=== PATIENT | female | born 1955 | race Caucasian/White ===

== ENCOUNTER 2016-09-07 15:23 | Inpatient (IN) | payer MEDICARE, BC ==
--- NOTE | 2016-09-07 15:47 | ED ---
General Adult HPI - General Stated complaint: Altered Time Seen by Provider: 09/07/16 15:23 Source: RN notes reviewed - History of Present Illness Initial comments: This is a 61-year-old female who has a history of left-sided paralysis. Patient was sent from [facility] they told me the patient a urinary tract infection can just of heart failure and and had altered mental status on arrival but per the ER doc she was back to her baseline. The physician at that time of transfer did not think the patient was septic. Per the ER doc she had a CT of her head and chest and it did show some pulmonary edema. Patient denies any chest pain or palpitations patient denies abdominal pain. Patient states she does feel mildly short of breath. Patient denies any recent injury or trauma. - Related Data Home Medications Medication Instructions Recorded Confirmed Aspirin 81 mg PO DAILY 11/10/15 11/11/15 Atorvastatin Calcium [Lipitor] 20 mg PO HS 11/10/15 11/11/15 Baclofen [Lioresal] 10 mg PO BID 11/10/15 11/11/15 Budesonide [Pulmicort] 0.5 mg INHALATION RT-BID 11/10/15 11/11/15 Glimepiride [Amaryl] 2 mg PO AC-BRKFST 11/10/15 11/11/15 INSULIN LISPRO (HumaLOG) [humaLOG] 20 units SQ ACHS PRN 11/10/15 11/11/15 Imipramine [Tofranil] 25 mg PO BID 11/10/15 11/11/15 Insulin Detemir [Levemir] 30 unit SQ HS 11/10/15 11/11/15 Lactulose 10 gm PO DAILY 11/10/15 11/11/15 Magnesium Citrate 296 ml PO ONCE PRN 11/10/15 11/11/15 Multivitamin [Men's Multi-Vitamin] 1 tab PO DAILY 11/10/15 11/11/15 Neomycin/Polymyxin B Sulf/Hc 1 drop BOTH EYES BID 11/10/15 11/11/15 [Lhaxrmgf-Nyqx-Vu Ophth Susp] [place]-3 Fatty Acids/Fish Oil [Fish 1 cap PO DAILY 11/10/15 11/11/15 Oil 1,000 mg Softgel] PARoxetine HCL [Paxil] 20 mg PO DAILY 03/04/16 03/05/16 Triamterene-Hctz 37.5-25Mg 1 cap PO DAILY 11/10/15 11/11/15 [Dyazide 37.5-25 Capsule] metFORMIN HCL [Glucophage] 1,000 mg PO BID 11/10/15 11/11/15 Albuterol Nebulized [Ventolin 2.5 mg INHALATION RT-QID 11/11/15 11/11/15 Nebulized] Docusate [Colace] 100 mg PO QID 11/11/15 11/11/15 Lisinopril [Zestril] 10 mg PO DAILY 11/11/15 11/11/15 Oxybutynin Xl [Ditropan XL] 5 mg PO DAILY 11/11/15 11/11/15 Previous Rx's Medication Instructions Recorded Moxifloxacin HCl [Avelox] 400 mg PO DAILY #7 tablet 11/23/15 Allergies Allergy/AdvReac Type Severity Reaction Status Date / Time No Known Allergies Allergy Verified 11/11/15 11:31 Review of Systems ROS Statement: Those systems with pertinent positive or pertinent negative responses have been documented in the HPI. ROS Other: All systems not noted in ROS Statement are negative. Past Medical History Past Medical History: Coronary Artery Disease (CAD), Diabetes Mellitus, Hyperlipidemia, Hypertension Additional Past Medical History / Comment(s): Morbid obesity, olivopontine and cerebellar degeneration, diabetes mellitus, chronic constipation, chronic urinary incontinence and the patient has a chronic Humphrey catheter in place with previous history of frequent urinary tract infections, difficulty with mobility and the patient was around with the help of a motorized scooter, obstructive sleep apnea, bronchial asthma, chronic hydronephrosis of the kidneys, hyperlipidemia, coronary artery disease, hypertension History of Any Multi-Drug Resistant Organisms: None Reported Past Surgical History: No Surgical Hx Reported Past Anesthesia/Blood Transfusion Reactions: No Reported Reaction Past Psychological History: Anxiety, Depression Smoking Status: Never smoker Past Alcohol Use History: None Reported Past Drug Use History: None Reported General Exam - General Exam Comments Initial Comments: GENERAL: Patient is well-developed and well-nourished. Patient is nontoxic and well- hydrated and is in mild distress. ENT: Neck is soft and supple. No significant lymphadenopathy is noted. Oropharynx is clear. Moist mucous membranes. Neck has full range of motion without eliciting any pain. EYES: The sclera were anicteric and conjunctiva were pink and moist. Extraocular movements were intact and pupils were equal round and reactive to light. Eyelids were unremarkable. PULMONARY: Patient has diminished breath sounds CARDIOVASCULAR: There is a regular rate and rhythm without any murmurs gallops or rubs. ABDOMEN: Soft and nontender with normal bowel sounds. No palpable organomegaly was noted. There is no palpable pulsatile mass. SKIN: Skin is clear with no lesions or rashes and otherwise unremarkable. NEUROLOGIC: Patient is alert and oriented x3. Cranial nerves II through XII are grossly intact. Patient has left-sided arm and leg weakness MUSCULOSKELETAL: Normal extremities with adequate strength and full range of motion. No lower extremity swelling or edema. No calf tenderness. LYMPHATICS: No significant lymphadenopathy is noted PSYCHIATRIC: Normal psychiatric evaluation. Course Vital Signs 09/07/16 09/07/16 09/07/16 15:38 16:14 16:35 Temperature 98.8 F Pulse Rate 132 H 132 H 134 H Respiratory 16 Rate Blood Pressure 92/67 104/58 104/49 O2 Sat by Pulse 100 98 100 Oximetry 09/07/16 09/07/16 17:13 17:45 Temperature Pulse Rate 134 H 134 H Respiratory Rate Blood Pressure 98/68 111/58 O2 Sat by Pulse 100 98 Oximetry Medical Decision Making - Medical Decision Making EKG shows sinus tachycardia at 135 bpm. A 54 QRS is 84 QT interval 288 QTC is 432. Patient has no ST segment elevation or depression or T-wave inversion noted. Patient came from [facility] are reviewed the CAT scans and x-rays it did appear the patient had some pulmonary edema. I repeated the lactic acid went from 2.9 down to 2.4. Patient's oxygenation on 4 L nasal cannula was 97% she was alert and oriented 3 blood pressure was 111 systolic however heart rate remained high but on previous visits to the hospital and noted that the patient's pulse was elevated at that time as well. I will be treating the patient for congestive heart failure as well as urinary tract infection. I spoke with Dr. Lee admitted the patient I wrote admitting orders - Lab Data Result diagrams: 09/07/16 16:15 09/07/16 16:15 Lab Results 09/07/16 09/07/16 09/07/16 Range/Units 16:15 16:15 16:15 WBC 12.2 H (3.8-10.6) k/uL RBC 4.71 (3.80-5.40) m/uL Hgb 13.9 (11.4-16.0) gm/dL Hct 43.7 (34.0-46.0) % MCV 92.8 (80.0-100.0) fL MCH 29.5 (25.0-35.0) pg MCHC 31.8 (31.0-37.0) g/dL RDW 13.8 (11.5-15.5) % Plt Count 274 (150-450) k/uL Neutrophils % 91 % Lymphocytes % 4 % Monocytes % 3 % Eosinophils % 0 % Basophils % 0 % Neutrophils # 11.1 H (1.3-7.7) k/uL Lymphocytes # 0.5 L (1.0-4.8) k/uL Monocytes # 0.4 (0-1.0) k/uL Eosinophils # 0.1 (0-0.7) k/uL Basophils # 0.0 (0-0.2) k/uL Hypochromasia Slight Sodium 143 (137-145) mmol/L Potassium 5.8 H (3.5-5.1) mmol/L Chloride 102 (98-107) mmol/L Carbon Dioxide 20 L (22-30) mmol/L Anion Gap 21 mmol/L BUN 42 H (7-17) mg/dL Creatinine 1.35 H (0.52-1.04) mg/dL Est GFR (MDRD) Af Amer 49 (>60 ml/min/1.73 sqM) Est GFR (MDRD) Non-Af 40 (>60 ml/min/1.73 sqM) Glucose 317 H (74-99) mg/dL Plasma Lactic Acid George 2.4 H* (0.7-2.0) mmol/L Calcium 9.5 (8.4-10.2) mg/dL Total Bilirubin 0.6 (0.2-1.3) mg/dL AST 34 (14-36) U/L ALT 48 (9-52) U/L Alkaline Phosphatase 120 (38-126) U/L NT-Pro-B Natriuret Pep pg/mL Total Protein 7.8 (6.3-8.2) g/dL Albumin 4.1 (3.5-5.0) g/dL Urine Color Urine Appearance (Clear) Urine pH (5.0-8.0) Ur Specific [place] (1.001-1.035) Urine Protein (Negative) Urine Glucose (UA) (Negative) Urine Ketones (Negative) Urine Blood (Negative) Urine Nitrate (Negative) Urine Bilirubin (Negative) Urine Urobilinogen (<2.0) mg/dL Ur Leukocyte Esterase (Negative) Urine RBC (0-5) /hpf Urine WBC (0-5) /hpf Ur Squamous Epith Cells (0-4) /hpf Hyaline Casts (0-2) /lpf Urine Mucus (None) /hpf 09/07/16 09/07/16 Range/Units 16:15 16:33 WBC (3.8-10.6) k/uL RBC (3.80-5.40) m/uL Hgb (11.4-16.0) gm/dL Hct (34.0-46.0) % MCV (80.0-100.0) fL MCH (25.0-35.0) pg MCHC (31.0-37.0) g/dL RDW (11.5-15.5) % Plt Count (150-450) k/uL Neutrophils % % Lymphocytes % % Monocytes % % Eosinophils % % Basophils % % Neutrophils # (1.3-7.7) k/uL Lymphocytes # (1.0-4.8) k/uL Monocytes # (0-1.0) k/uL Eosinophils # (0-0.7) k/uL Basophils # (0-0.2) k/uL Hypochromasia Sodium (137-145) mmol/L Potassium (3.5-5.1) mmol/L Chloride (98-107) mmol/L Carbon Dioxide (22-30) mmol/L Anion Gap mmol/L BUN (7-17) mg/dL Creatinine (0.52-1.04) mg/dL Est GFR (MDRD) Af Amer (>60 ml/min/1.73 sqM) Est GFR (MDRD) Non-Af (>60 ml/min/1.73 sqM) Glucose (74-99) mg/dL Plasma Lactic Acid George (0.7-2.0) mmol/L Calcium (8.4-10.2) mg/dL Total Bilirubin (0.2-1.3) mg/dL AST (14-36) U/L ALT (9-52) U/L Alkaline Phosphatase (38-126) U/L NT-Pro-B Natriuret Pep 1790 pg/mL Total Protein (6.3-8.2) g/dL Albumin (3.5-5.0) g/dL Urine Color Yellow Urine Appearance Cloudy H (Clear) Urine pH 5.0 (5.0-8.0) Ur Specific [place] 1.011 (1.001-1.035) Urine Protein Trace H (Negative) Urine Glucose (UA) Negative (Negative) Urine Ketones Negative (Negative) Urine Blood Small H (Negative) Urine Nitrate Negative (Negative) Urine Bilirubin Negative (Negative) Urine Urobilinogen <2.0 (<2.0) mg/dL Ur Leukocyte Esterase Large H (Negative) Urine RBC 9 H (0-5) /hpf Urine WBC 28 H (0-5) /hpf Ur Squamous Epith Cells <1 (0-4) /hpf Hyaline Casts 79 H (0-2) /lpf Urine Mucus Rare H (None) /hpf Critical Care Time Critical Care Time: Yes Total Critical Care Time: 35 Disposition Clinical Impression: Pulmonary edema, Urinary tract infection, Tachycardia Disposition: ADMITTED IP TO THIS HOSP Referrals: Zita Barboza MD [Primary Care Provider] - 1-2 days Time of Disposition: 17:58
[2016-09-07 16:30] LABS: Basophils % (A) 0 %; CH 28.6; CHCM 30.9; Eosinophils # (A) 0.1 k/uL (0-0.7); Eosinophils % (A) 0 %; HCT 43.7 % (34.0-46.0); HDW 2.22; HGB 13.9 gm/dL (11.4-16.0); Hypochromasia Slight; Luc # (Auto) 0.07; Luc % (Auto) 1; Lymphocytes # (A) 0.5 k/uL (1.0-4.8); Lymphocytes % (A) 4 %; MCH 29.5 pg (25.0-35.0); MCHC 31.8 g/dL (31.0-37.0); MCV 92.8 fL (80.0-100.0); Monocytes # (A) 0.4 k/uL (0-1.0); Monocytes % (A) 3 %; Neutrophils # (A) 11.1 k/uL (1.3-7.7); Neutrophils % (A) 91 %; RBC 4.71 m/uL (3.80-5.40); RDW 13.8 % (11.5-15.5); WBC 12.2 k/uL (3.8-10.6); WBC (Perox) 12.42
[2016-09-07 16:37] LABS: Calcium 9.5 mg/dL (8.4-10.2); Potassium 5.8 mmol/L (3.5-5.1); Total Bilirubin 0.6 mg/dL (0.2-1.3); Total Protein 7.8 g/dL (6.3-8.2)
[2016-09-07 16:53] LABS: Appearance,Urine Cloudy (Clear); Bilirubin,Urine Negative (Negative); Glucose,Urine (UA) Negative (Negative); Ketones,Urine Negative (Negative); Leukocyte Esterase,Urine Large (Negative); Mucus,Urine Rare /hpf; Nitrite,Urine Negative (Negative); Particle Count 6232; Protein,Urine Trace (Negative); RBC,Urine 9 /hpf (0-5); Specific Gravity,Urine 1.011 (1.001-1.035); Squamous Epithelial Cell,Urine <1 /hpf (0-4); UA Billing (MACRO vs. MICRO) MICRO; Urobilinogen,Urine <2.0 mg/dL (<2.0); WBC,Urine 28 /hpf (0-5)
[2016-09-07] MEDS ORDERED: FUROSEMIDE 10 MG/ML 2 ML VIAL IV ONE (18:02)
[2016-09-07 19:16] LABS: Glucose,Whole Blood 319 mg/dL (75-99)
[2016-09-07 20:53] LABS: Glucose,Whole Blood 360 mg/dL (75-99)
[2016-09-07] MEDS ORDERED: INSULIN DETEMIR 100 UNIT/ML 10 ML VIAL SQ STA (22:21)
[2016-09-07] MEDS ORDERED: IPRATROPIUM-ALBUTEROL 3 ML NEB INHALATION PRN (22:22)
[2016-09-07 22:47] LABS: Basophils % (A) 0 %; CH 28.5; CHCM 30.7; Eosinophils % (A) 0 %; HCT 44.4 % (34.0-46.0); HDW 2.22; HGB 14.1 gm/dL (11.4-16.0); Hypochromasia Slight; Luc # (Auto) 0.23; Luc % (Auto) 2; Lymphocytes # (A) 1.1 k/uL (1.0-4.8); Lymphocytes % (A) 9 %; MCH 29.7 pg (25.0-35.0); MCHC 31.8 g/dL (31.0-37.0); MCV 93.4 fL (80.0-100.0); Mean Platelet Volume 8.1; Monocytes # (A) 0.9 k/uL (0-1.0); Monocytes % (A) 7 %; Neutrophils % (A) 81 %; RBC 4.75 m/uL (3.80-5.40); RDW 13.8 % (11.5-15.5); WBC 12.3 k/uL (3.8-10.6); WBC (Perox) 12.67
[2016-09-07 22:54] LABS: Calcium 9.3 mg/dL (8.4-10.2); Magnesium 1.7 mg/dL (1.6-2.3); Phosphorous 3.4 mg/dL (2.5-4.5)
[2016-09-07 23:10] LABS: Glucose,Whole Blood 352 mg/dL (75-99)
--- NOTE | 2016-09-07 23:25 | CT ---
EXAMINATION TYPE: CT brain wo con DATE OF EXAM: 09/07/2016 10:56 PM COMPARISON: 11/10/2015 HISTORY: R/O CVA CT DLP: 1081.60 mGycm Automated exposure control for dose reduction was used. FINDINGS: There is cerebral cortical atrophy. There is no mass effect nor midline shift. There is no sign of in tracranial hemorrhage. The calvarium is intact. The brainstem appears small. There is hypodensity inv olving the peña consistent with encephalomalacia and old infarct. IMPRESSION: Cerebral atrophy. Encephalomalacia involving the brainstem. No change compared to old exam.
[2016-09-07] MEDS: SODIUM CHLORIDE 0.9% 1,000 ML IV SCH (23:36)
[2016-09-07] MEDS: SODIUM CHLORIDE 0.9% 250 ML IV SCH (23:38)
[2016-09-08] MEDS ORDERED: FUROSEMIDE 10 MG/ML 2 ML VIAL IV SCH
[2016-09-08] MEDS: SODIUM CHLORIDE 0.9% 250 ML IV SCH ×3 (00:08→00:38)
--- NOTE | 2016-09-08 00:54 | XR ---
EXAMINATION TYPE: XR chest 1V portable DATE OF EXAM: 09/08/2016 12:49 AM COMPARISON: Yesterday HISTORY: Short of breath TECHNIQUE: Single frontal view of the chest is obtained. FINDINGS: There is a poor inspiration. There is coarsening of interstitial pulmonary markings. There is no gross heart failure. Costophrenic angles are clear. Exam is limited by obesity. There are ches t leads. There are no hilar masses. IMPRESSION: Coarse lung markings are the same or increased compared to yesterday and probably relate to some fibrosis. No gross heart failure.
[2016-09-08] MEDS ORDERED: NALOXONE 0.4 MG/ML 1 ML VIAL IV PRN (00:56)
[2016-09-08] MEDS ORDERED: VANCOMYCIN 1,000 MG in SODIUM CHLORIDE 0.9% 250 ML IVPB STA (01:03)
[2016-09-08 01:04] LABS: INR 1.1 (<1.1); Partial Thromboplastin Time 27.4 sec (22.0-30.0); Prothrombin Time 10.9 sec (9.0-12.0)
[2016-09-08 01:09] LABS: ABG Base Excess -2.8 mmol/L; ABG HCO3 21 mmol/L (21-25); ABG PCO2 29 mmHg (35-45); ABG PH 7.46 (7.35-7.45); ABG PO2 62 mmHg (83-108); ABG TCO2 21 mmol/L (19-24)
[2016-09-08] MEDS ORDERED: IPRATROPIUM-ALBUTEROL 3 ML NEB INHALATION PRN (01:15)
[2016-09-08] MEDS ORDERED: ACETAMINOPHEN IV (For NPO) 1,000 MG in EMPTY BAG 1 BAG IVPB SCH (01:15)
[2016-09-08] MEDS ORDERED: SODIUM CHLORIDE 0.9% 1,000 ML IV ONE ×2 (01:19→12:43)
[2016-09-08 01:25] LABS: Creatine Kinase MB 4.9 ng/mL (0.0-2.4)
[2016-09-08] MEDS: ACETAMINOPHEN IV (For NPO) 1,000 MG in EMPTY BAG 1 BAG IVPB PRN ×2 (01:35→09:12)
[2016-09-08] MEDS: SODIUM CHLORIDE 0.9% 1,000 ML IV SCH ×2 (01:37→18:35)
[2016-09-08 04:02] LABS: Basophils % (A) 0 %; CH 29.2; CHCM 30.3; Eosinophils % (A) 0 %; HCT 45.1 % (34.0-46.0); HDW 2.28; HGB 13.3 gm/dL (11.4-16.0); Hypochromasia Moderate; Luc # (Auto) 0.15; Luc % (Auto) 2; Lymphocytes # (A) 0.9 k/uL (1.0-4.8); Lymphocytes % (A) 9 %; MCH 28.7 pg (25.0-35.0); MCHC 29.6 g/dL (31.0-37.0); MCV 96.9 fL (80.0-100.0); Mean Platelet Volume 9.1; Monocytes % (A) 9 %; Neutrophils % (A) 79 %; RBC 4.66 m/uL (3.80-5.40); RDW 14.1 % (11.5-15.5); WBC (Perox) 10.11
[2016-09-08 04:16] LABS: Calcium 8.8 mg/dL (8.4-10.2); Magnesium 1.7 mg/dL (1.6-2.3); Phosphorous 3.8 mg/dL (2.5-4.5); Potassium 5.7 mmol/L (3.5-5.1); Total Bilirubin 0.6 mg/dL (0.2-1.3); Total Protein 6.7 g/dL (6.3-8.2)
[2016-09-08] MEDS ORDERED: INSULIN LISPRO (humaLOG) 300 UNIT/3 ML VIAL SQ SCH (06:00)
[2016-09-08] MEDS ORDERED: INSULIN LISPRO (humaLOG) 300 UNIT/3 ML VIAL SQ ONE (06:00)
[2016-09-08 06:02] LABS: Glucose,Whole Blood 448 mg/dL (75-99)
[2016-09-08] MEDS ORDERED: INSULIN REGULAR BOLUS (FROM DRIP BAG) IV PRN (06:19)
[2016-09-08] MEDS: INSULIN REGULAR 100 UNIT in SODIUM CHLORIDE 0.9% 100 ML IV SCH ×2 (07:13→21:33)
[2016-09-08] MEDS ORDERED: GLIMEPIRIDE 2 MG TAB PO SCH (07:30)
[2016-09-08 08:15] LABS: Glucose,Whole Blood 455 mg/dL (75-99)
[2016-09-08] MEDS ORDERED: metFORMIN 500 MG TAB PO SCH (09:00)
[2016-09-08] MEDS: IPRATROPIUM-ALBUTEROL 3 ML NEB INHALATION SCH ×5 (09:31→19:56)
[2016-09-08 09:34] LABS: Glucose,Whole Blood 423 mg/dL (75-99)
[2016-09-08] MEDS: NOREPINEPHRINE 4 MG in SODIUM CHLORIDE 0.9% 250 ML IV SCH ×2 (10:00→22:04)
[2016-09-08 10:26] LABS: Glucose,Whole Blood 372 mg/dL (75-99)
[2016-09-08] MEDS: ENOXAPARIN 30 MG/0.3 ML SYRINGE SQ SCH (10:43)
[2016-09-08] MEDS: PANTOPRAZOLE 40 MG/10 ML VIAL IV SCH (10:44)
[2016-09-08 11:29] LABS: Glucose,Whole Blood 294 mg/dL (75-99)
[2016-09-08 12:01] LABS: Hemoglobin A1C 7.7 % (4.2-6.1)
[2016-09-08 12:09] LABS: Glucose,Whole Blood 253 mg/dL (75-99)
[2016-09-08] MEDS ORDERED: IV VANCOMYCIN PER PHARMACY 1 EACH MISC MISCELLANE PRN (13:14)
[2016-09-08 13:15] LABS: Glucose,Whole Blood 229 mg/dL (75-99)
--- NOTE | 2016-09-08 13:34 | P.CNPUL ---
History of Present Illness Consult date: 09/08/16 Requesting physician: Harley Lee Chief complaint: Altered mental status History of present illness: This is a 61-year-old white female with history of left-sided paralysis, diabetes, hypertension, morbid obesity, olivopontine and cerebellar degeneration , chronic constipation, chronic Humphrey catheter placement, medical debility and profound weakness, patient usually uses a motorized scooter, history of obstructive sleep apnea syndrome, and chronic hydronephrosis of the kidneys. History of coronary artery disease, patient was initially seen at [place] emergency room with altered mental status, and abnormal urinalysis suggestive of urinary tract infection. Patient also had some other labs pointing to possible sepsis. Hence the patient was brought in to [facility], and she was admitted to the intensive care unit. The patient herself is a very poor historian. But apparently upon admission the patient was noted to be hypotensive, she required fluid boluses, and now she is on a small dose of norepinephrine. Patient was also noted to have a bit of leukocytosis, WBC count was 12.3. ABG on 36% FiO2 showed a pO2 of 62 pCO2 of 29 and pH of 7.46. Her electrolytes showed anion gap metabolic acidosis of 18, BUN was 48, creatinine was 1.40, and her blood sugar on admission was 415. Plasma lactic acid was 2.8, CPK was also elevated at 1380 proBNP level was a bit elevated almost 2800. Initially there was a bit of reluctance by the ER physician to give the patient fluid boluses for hypotension, because of the concern of pulmonary edema. However after I reviewed the chest x-ray, I felt there was no evidence of pulmonary edema, and I recommended fluid boluses she received so far 2 L of fluid boluses, and I plan to give her more, in the meantime the patient does not improve I recommended starting norepinephrine and titrate to a mean arterial pressure of 65 at least. I have also recommended broad-spectrum antibiotics for her presumptive sepsis and again the most likely source is the urine. Patient does have a chronic indwelling Humphrey catheter. Review of Systems ROS unobtainable: due to mental status Past Medical History Past Medical History: Coronary Artery Disease (CAD), Diabetes Mellitus, Hyperlipidemia, Hypertension, Sleep Apnea/CPAP/BIPAP Additional Past Medical History / Comment(s): Morbid obesity, olivopontine and cerebellar degeneration, diabetes mellitus, chronic constipation, chronic urinary incontinence and the patient has a chronic Humphrey catheter in place with previous history of frequent urinary tract infections, difficulty with mobility and the patient was around with the help of a motorized scooter, obstructive sleep apnea, bronchial asthma, chronic hydronephrosis of the kidneys, hyperlipidemia, coronary artery disease, hypertension History of Any Multi-Drug Resistant Organisms: C-DIFF, MRSA Date of last positivie culture/infection: 11/2015 MDRO Source:: c-diff, mrsa 2011 in blood Past Surgical History: No Surgical Hx Reported, Bowel Resection, Tubal Ligation Additional Past Surgical History / Comment(s): carpal tunnel Past Anesthesia/Blood Transfusion Reactions: No Reported Reaction Past Psychological History: Depression Smoking Status: Never smoker Past Alcohol Use History: None Reported Past Drug Use History: None Reported - Past Family History Father Family Medical History: Cancer Additional Family Medical History / Comment(s): from pancreatic cancer Mother Family Medical History: Congestive Heart Failure (CHF), Diabetes Mellitus, Dialysis Additional Family Medical History / Comment(s): from CHF Medications and Allergies Home Medications Medication Instructions Recorded Confirmed Type Aspirin 81 mg PO DAILY 11/10/15 09/07/16 History Atorvastatin Calcium [Lipitor] 20 mg PO HS 11/10/15 09/07/16 History Baclofen [Lioresal] 10 mg PO BID 11/10/15 09/07/16 History Budesonide [Pulmicort] 0.5 mg INHALATION RT-BID 11/10/15 09/07/16 History Glimepiride [Amaryl] 2 mg PO AC-BRKFST 11/10/15 09/07/16 History INSULIN LISPRO (HumaLOG) [humaLOG] 20 units SQ AC-TID 11/10/15 09/07/16 History Imipramine [Tofranil] 25 mg PO BID 11/10/15 09/07/16 History Insulin Detemir [Levemir] 35 unit SQ HS 11/10/15 09/07/16 History Lactulose 20 gm PO DAILY 11/10/15 09/07/16 History Neomycin/Polymyxin B Sulf/Hc 1 drop BOTH EYES BID 11/10/15 09/07/16 History [Wvuadgqp-Vdqr-Aw Ophth Susp] [place]-3 Fatty Acids/Fish Oil [Fish 1 cap PO DAILY 11/10/15 09/07/16 History Oil 1,000 mg Softgel] PARoxetine HCL [Paxil] 20 mg PO DAILY 11/10/15 09/07/16 History metFORMIN HCL [Glucophage] 1,000 mg PO BID 11/10/15 09/07/16 History Albuterol Nebulized [Ventolin 2.5 mg INHALATION RT-QID 11/11/15 09/07/16 History Nebulized] Docusate [Colace] 100 mg PO QID 11/11/15 09/07/16 History Lisinopril [Zestril] 10 mg PO DAILY 11/11/15 09/07/16 History Oxybutynin Xl [Ditropan XL] 5 mg PO DAILY 11/11/15 09/07/16 History Calcium Carbonate/Vitamin D3 1 tab PO DAILY 09/07/16 09/07/16 History [Calcium 600-Vit D3 200 Tablet] INSULIN LISPRO (humaLOG) [HumaLOG] See Protocol SQ AC-TID 09/07/16 09/07/16 History L.acidoph,Paracasei, B.lactis 1 cap PO DAILY 09/07/16 09/07/16 History [Probiotic] Multivitamins, Thera [Multivitamin] 1 tab PO DAILY 09/07/16 09/07/16 History Triamterene-Hctz 37.5-25Mg 1 tab PO DAILY 09/07/16 09/07/16 History [Maxzide 37.5-25] Allergies Allergy/AdvReac Type Severity Reaction Status Date / Time No Known Allergies Allergy Verified 09/07/16 18:21 Physical Exam Vitals: Vital Signs Temp Pulse Pulse Pulse Resp BP BP 09/08/16 12:00 98.9 F 112 H 19 92/56 09/08/16 11:30 114 H 18 94/53 09/08/16 11:00 113 H 22 75/40 09/08/16 10:00 114 H 24 95/59 09/08/16 09:30 99.7 F H 118 H 20 76/52 09/08/16 09:00 115 H 21 84/43 09/08/16 08:30 120 H 21 85/54 09/08/16 08:00 101.8 F H 113 H 18 71/49 09/08/16 07:00 102.4 F H 142 H 23 90/52 09/08/16 06:00 102.8 F H 124 H 24 93/54 09/08/16 05:00 98.1 F 124 H 20 122/68 09/08/16 04:00 99.8 F H 126 H 26 H 113/67 09/08/16 03:00 100.3 F H 126 H 25 H 108/66 09/08/16 02:00 102.6 F H 128 H 21 126/60 09/08/16 01:00 101.5 F H 136 H 23 108/74 09/08/16 00:00 102.6 F H 134 H 26 H 109/65 09/07/16 23:15 103.2 F H 132 H 23 103/82 09/07/16 21:30 136 H 40 H 81/65 09/07/16 18:32 97.4 F L 136 H 20 91/64 Pulse Ox 09/08/16 12:00 99 09/08/16 11:30 97 09/08/16 11:00 09/08/16 10:00 99 09/08/16 09:30 99 09/08/16 09:00 100 09/08/16 08:30 99 09/08/16 08:00 09/08/16 07:00 100 09/08/16 06:00 98 09/08/16 05:00 99 09/08/16 04:00 96 09/08/16 03:00 96 09/08/16 02:00 99 09/08/16 01:00 96 09/08/16 00:00 93 L 09/07/16 23:15 94 L 09/07/16 21:30 09/07/16 18:32 97 Intake and Output 09/07/16 09/08/16 09/08/16 22:59 06:59 14:59 Intake Total 1650 1565.430 Output Total 975 380 Balance 675 1185.430 Intake: IV 1000 .9ns bolus 1000 Intake, IV Titration 1650 565.430 Amount ACETAMINOPHEN IV (For NPO 100 ) 1,000 mg In Empty Bag 1 bag @ 400 mls/hr IVPB Q6HR PRN Rx#:[id number] ACETAMINOPHEN IV (For NPO 300 ) 1,000 mg In Empty Bag 1 bag @ 400 mls/hr IVPB Q6HR BROOKE Rx#:[id number] Insulin Regular 100 unit 52.666 In Sodium Chloride 0.9% 100 ml @ Per Protocol IV .Q0M [facility] Rx#:[id number] Norepinephrine 4 mg In 12.764 Sodium Chloride 0.9% 250 ml @ Titrate IV .Q0M [facility] Rx#:[id number] Sodium Chloride 0.9% 1, 300 200 000 ml @ 100 mls/hr IV . Q10H [facility] Rx#:[id number] Sodium Chloride 0.9% 1, 1000 000 ml @ 500 mls/hr IV . Q2H ONE Rx#:[id number] Vancomycin 1,000 mg In 250 Sodium Chloride 0.9% 250 ml @ 125 mls/hr IVPB ONCE STA Rx#:[id number] Output: Urine 975 380 Other: Voiding Method Indwelling Catheter Indwelling Catheter Indwelling Catheter Weight 136.078 kg 136.078 kg Patient Weight 09/09/16 06:59 Weight 136.078 kg Physical Exam: Revealed a 61-year-old female on nasal CPAP of her own. FiO2 presently is 50%. HEENT:[Neck is supple.] [No neck masses.] [No thyromegaly.] [No JVD.] Very dry mucous membranes were noted. Chest: [Diminished breath sounds at the bases no crackles or rhonchi or wheezes. ] Cardiac Exam: [Normal S1 and S2, no S3 gallop, no murmur.] Abdomen: [Soft, nontender, no megaly, no rebound, no guarding, intact colostomy bag noted.] Extremities: [No clubbing, no edema, no cyanosis.] Neurological Exam: Patient seems to be generally weak, and she has a chronic left-sided weakness. Slightly confused, not a great historian and supposedly this is her baseline. Results - Laboratory Findings CBC and BMP: 09/08/16 03:36 09/08/16 03:36 ABG ABG pH 7.46 (7.35-7.45) H 09/07/16 23:46 ABG pCO2 29 mmHg (35-45) L 09/07/16 23:46 ABG pO2 62 mmHg (83-108) L 09/07/16 23:46 ABG O2 Saturation 93.0 % (94-97) L 09/07/16 23:46 PT/INR, D-dimer PT 10.9 sec (9.0-12.0) 09/08/16 00:42 INR 1.1 (<1.1) 09/08/16 00:42 Abnormal lab findings: Abnormal Labs 09/07/16 09/07/16 09/07/16 18:57 20:33 22:28 WBC MCHC Plt Count Neutrophils # Lymphocytes # ABG pH ABG pCO2 ABG pO2 ABG O2 Saturation Potassium Carbon Dioxide BUN Creatinine Glucose POC Glucose (mg/dL) 319 H 360 H Hemoglobin A1c Plasma Lactic Acid George 2.8 H* AST Total Creatine Kinase CK-MB (CK-2) 09/07/16 09/07/16 09/07/16 22:28 22:28 23:09 WBC 12.3 H MCHC Plt Count Neutrophils # 10.0 H Lymphocytes # ABG pH ABG pCO2 ABG pO2 ABG O2 Saturation Potassium Carbon Dioxide 20 L BUN 48 H Creatinine 1.40 H Glucose 415 H POC Glucose (mg/dL) 352 H Hemoglobin A1c Plasma Lactic Acid George AST Total Creatine Kinase CK-MB (CK-2) 09/07/16 09/08/16 09/08/16 23:46 00:42 00:42 WBC MCHC Plt Count Neutrophils # Lymphocytes # ABG pH 7.46 H ABG pCO2 29 L ABG pO2 62 L ABG O2 Saturation 93.0 L Potassium 5.7 H Carbon Dioxide BUN Creatinine Glucose POC Glucose (mg/dL) Hemoglobin A1c Plasma Lactic Acid George AST Total Creatine Kinase 1380 H CK-MB (CK-2) 4.9 H* 09/08/16 09/08/16 09/08/16 03:36 03:36 03:36 WBC MCHC 29.6 L Plt Count 142 L Neutrophils # 8.0 H Lymphocytes # 0.9 L ABG pH ABG pCO2 ABG pO2 ABG O2 Saturation Potassium 5.7 H Carbon Dioxide 19 L BUN 49 H Creatinine 1.40 H Glucose 495 H* POC Glucose (mg/dL) Hemoglobin A1c Plasma Lactic Acid George 2.7 H* AST 66 H Total Creatine Kinase CK-MB (CK-2) 09/08/16 09/08/16 09/08/16 03:36 06:00 08:05 WBC MCHC Plt Count Neutrophils # Lymphocytes # ABG pH ABG pCO2 ABG pO2 ABG O2 Saturation Potassium Carbon Dioxide BUN Creatinine Glucose POC Glucose (mg/dL) 448 H 455 H Hemoglobin A1c 7.7 H Plasma Lactic Acid George AST Total Creatine Kinase CK-MB (CK-2) 09/08/16 09/08/16 09/08/16 09:14 10:08 11:09 WBC MCHC Plt Count Neutrophils # Lymphocytes # ABG pH ABG pCO2 ABG pO2 ABG O2 Saturation Potassium Carbon Dioxide BUN Creatinine Glucose POC Glucose (mg/dL) 423 H 372 H 294 H Hemoglobin A1c Plasma Lactic Acid George AST Total Creatine Kinase CK-MB (CK-2) 09/08/16 09/08/16 12:08 12:55 WBC MCHC Plt Count Neutrophils # Lymphocytes # ABG pH ABG pCO2 ABG pO2 ABG O2 Saturation Potassium Carbon Dioxide BUN Creatinine Glucose POC Glucose (mg/dL) 253 H 229 H Hemoglobin A1c Plasma Lactic Acid George AST Total Creatine Kinase CK-MB (CK-2) - Diagnostic Findings Chest x-ray: image reviewed (Coarse interstitial markings, but no evidence of infiltrate, and no evidence of congestive heart failure.) Additional studies: CT of the brain upon presentation showed cerebral atrophy encephalomalacia involving the brainstem which is chronic. Assessment and Plan Plan: Impression: 1 suspect acute sepsis secondary to acute urinary tract infection secondary to chronic indwelling Humphrey catheter. Multiple comorbidities including history of oligo pontine and cerebellar degeneration, morbid obesity, type 2 diabetes, chronic weakness, history of bronchial asthma, history of coronary artery disease, and history of essential hypertension. Chronic renal failure and hydronephrosis. Recommendation: Patient will be kept in the ICU today, she will be given more fluid boluses, we'll follow the sepsis protocol, in the meantime she is on ceftriaxone, and vancomycin. Infectious disease is yet to see the patient today. The antibiotics are given empirically. We'll continue bronchodilators, continue insulin drip, use norepinephrine if the patient does not improve with fluid boluses, and that would mean the patient is having a septic shock. Continue GI and DVT prophylaxis. Prognosis is definitely guarded, will continue to follow closely. Time with Patient: Greater than 30
[2016-09-08 13:48] LABS: Calcium 8.4 mg/dL (8.4-10.2); Potassium 5.8 mmol/L (3.5-5.1)
--- NOTE | 2016-09-08 13:59 | P.CONS ---
History of Present Illness - Reason for Consult Consult date: 09/08/16 Acute confusion - Chief Complaint Altered mental status - History of Present Illness This 61-year-old female with a history of left-sided paralysis. She was transferred from [facility] and was seen in the [facility] emergency room. She had some complaints of altered mental status. She was being treated for urinary tract infection. She was here for evaluation for sepsis and is currently in the ICU. During the right she had an episode of acute confusion, nonreactive pupils and unresponsiveness. She remains confused somewhat. She does have quite a complex medical history. She was admitted for pulmonary edema urinary tract infection tachycardia. 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 This was unchanged compared to her previous study of 11/10/2015. Review of Systems All systems: negative Past Medical History Past Medical History: Coronary Artery Disease (CAD), Diabetes Mellitus, Hyperlipidemia, Hypertension, Sleep Apnea/CPAP/BIPAP Additional Past Medical History / Comment(s): Morbid obesity, olivopontine and cerebellar degeneration, diabetes mellitus, chronic constipation, chronic urinary incontinence and the patient has a chronic Humphrey catheter in place with previous history of frequent urinary tract infections, difficulty with mobility and the patient was around with the help of a motorized scooter, obstructive sleep apnea, bronchial asthma, chronic hydronephrosis of the kidneys, hyperlipidemia, coronary artery disease, hypertension History of Any Multi-Drug Resistant Organisms: C-DIFF, 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 MDRO Source:: c-diff, mrsa 2011 in blood Past Surgical History: No Surgical Hx Reported, Bowel Resection, Tubal Ligation Additional Past Surgical History / Comment(s): carpal tunnel Past Anesthesia/Blood Transfusion Reactions: No Reported Reaction Past Psychological History: Depression Smoking Status: Never smoker Past Alcohol Use History: None Reported Past Drug Use History: None Reported - Past Family History Father Family Medical History: Cancer Additional Family Medical History / Comment(s): from pancreatic cancer Mother Family Medical History: Congestive Heart Failure (CHF), Diabetes Mellitus, Dialysis Additional Family Medical History / Comment(s): from CHF Medications and Allergies Home Medications Medication Instructions Recorded Confirmed Type Aspirin 81 mg PO DAILY 11/10/15 09/07/16 History Atorvastatin Calcium [Lipitor] 20 mg PO HS 11/10/15 09/07/16 History Baclofen [Lioresal] 10 mg PO BID 11/10/15 09/07/16 History Budesonide [Pulmicort] 0.5 mg INHALATION RT-BID 11/10/15 09/07/16 History Glimepiride [Amaryl] 2 mg PO AC-BRKFST 11/10/15 09/07/16 History INSULIN LISPRO (HumaLOG) [humaLOG] 20 units SQ AC-TID 11/10/15 09/07/16 History Imipramine [Tofranil] 25 mg PO BID 11/10/15 09/07/16 History Insulin Detemir [Levemir] 35 unit SQ HS 11/10/15 09/07/16 History Lactulose 20 gm PO DAILY 11/10/15 09/07/16 History Neomycin/Polymyxin B Sulf/Hc 1 drop BOTH EYES BID 11/10/15 09/07/16 History [Zrbiexjv-Vago-Oe Ophth Susp] [place]-3 Fatty Acids/Fish Oil [Fish 1 cap PO DAILY 11/10/15 09/07/16 History Oil 1,000 mg Softgel] PARoxetine HCL [Paxil] 20 mg PO DAILY 11/10/15 09/07/16 History metFORMIN HCL [Glucophage] 1,000 mg PO BID 11/10/15 09/07/16 History Albuterol Nebulized [Ventolin 2.5 mg INHALATION RT-QID 11/11/15 09/07/16 History Nebulized] Docusate [Colace] 100 mg PO QID 11/11/15 09/07/16 History Lisinopril [Zestril] 10 mg PO DAILY 11/11/15 09/07/16 History Oxybutynin Xl [Ditropan XL] 5 mg PO DAILY 11/11/15 09/07/16 History Calcium Carbonate/Vitamin D3 1 tab PO DAILY 09/07/16 09/07/16 History [Calcium 600-Vit D3 200 Tablet] INSULIN LISPRO (humaLOG) [HumaLOG] See Protocol SQ AC-TID 09/07/16 09/07/16 History L.acidoph,Paracasei, B.lactis 1 cap PO DAILY 09/07/16 09/07/16 History [Probiotic] Multivitamins, Thera [Multivitamin] 1 tab PO DAILY 09/07/16 09/07/16 History Triamterene-Hctz 37.5-25Mg 1 tab PO DAILY 09/07/16 09/07/16 History [Maxzide 37.5-25] Allergies Allergy/AdvReac Type Severity Reaction Status Date / Time No Known Allergies Allergy Verified 09/07/16 18:21 Physical Exam Vitals: Vital Signs Temp Pulse Pulse Pulse Resp BP BP 09/08/16 12:00 98.9 F 112 H 19 92/56 09/08/16 11:30 114 H 18 94/53 09/08/16 11:00 113 H 22 75/40 09/08/16 10:00 114 H 24 95/59 09/08/16 09:30 99.7 F H 118 H 20 76/52 09/08/16 09:00 115 H 21 84/43 09/08/16 08:30 120 H 21 85/54 09/08/16 08:00 101.8 F H 113 H 18 71/49 09/08/16 07:00 102.4 F H 142 H 23 90/52 09/08/16 06:00 102.8 F H 124 H 24 93/54 09/08/16 05:00 98.1 F 124 H 20 122/68 09/08/16 04:00 99.8 F H 126 H 26 H 113/67 09/08/16 03:00 100.3 F H 126 H 25 H 108/66 09/08/16 02:00 102.6 F H 128 H 21 126/60 09/08/16 01:00 101.5 F H 136 H 23 108/74 09/08/16 00:00 102.6 F H 134 H 26 H 109/65 09/07/16 23:15 103.2 F H 132 H 23 103/82 09/07/16 21:30 136 H 40 H 81/65 09/07/16 18:32 97.4 F L 136 H 20 91/64 Pulse Ox 09/08/16 12:00 99 09/08/16 11:30 97 09/08/16 11:00 09/08/16 10:00 99 09/08/16 09:30 99 09/08/16 09:00 100 09/08/16 08:30 99 09/08/16 08:00 09/08/16 07:00 100 09/08/16 06:00 98 01/01/17 05:00 99 09/08/16 04:00 96 09/08/16 03:00 96 09/08/16 02:00 99 09/08/16 01:00 96 09/08/16 00:00 93 L 09/07/16 23:15 94 L 09/07/16 21:30 09/07/16 18:32 97 Intake and Output 09/07/16 09/08/16 09/08/16 22:59 06:59 14:59 Intake Total 1650 1565.430 Output Total 975 380 Balance 675 1185.430 Intake: IV 1000 .9ns bolus 1000 Intake, IV Titration 1650 565.430 Amount ACETAMINOPHEN IV (For NPO 100 ) 1,000 mg In Empty Bag 1 bag @ 400 mls/hr IVPB Q6HR PRN Rx#:[id number] ACETAMINOPHEN IV (For NPO 300 ) 1,000 mg In Empty Bag 1 bag @ 400 mls/hr IVPB Q6HR BROOKE Rx#:[id number] Insulin Regular 100 unit 52.666 In Sodium Chloride 0.9% 100 ml @ Per Protocol IV .Q0M BROOKE Rx#:[id number] Norepinephrine 4 mg In 12.764 Sodium Chloride 0.9% 250 ml @ Titrate IV .Q0M BROOKE Rx#:[id number] Sodium Chloride 0.9% 1, 300 200 000 ml @ 100 mls/hr IV . Q10H BROOKE Rx#:[id number] Sodium Chloride 0.9% 1, 1000 000 ml @ 500 mls/hr IV . Q2H ONE Rx#:[id number] Vancomycin 1,000 mg In 250 Sodium Chloride 0.9% 250 ml @ 125 mls/hr IVPB ONCE STA Rx#:[id number] Output: Urine 975 380 Other: Voiding Method Indwelling Catheter Indwelling Catheter Indwelling Catheter Weight 136.078 kg 136.078 kg Patient Weight 09/09/16 06:59 Weight 136.078 kg - Constitutional General appearance: no acute distress, obese - EENT Eyes: no abnormal pupil, EOMI, PERRLA, no ptosis - Neck Neck: normal ROM, no rigidity - Respiratory On BiPAP machine Respiratory: negative: prolonged expiration, prolonged inspiration - Cardiovascular Rhythm: regular - Gastrointestinal General gastrointestinal: no distended, no tenderness - Neurologic The patient is awake and oriented to self only. Speech is mildly dysarthric, but she does not have her plate in. There is no facial asymmetry. She responds well to verbal commands and gives yes or no answers. Patient Service Representative strength is 4+ out of 5 on the right 4 minus out of 5 on the left otherwise she is uncooperative with strength testing. No tremors or seizure-like activities are seen. Results CBC & Chem 7: 09/08/16 03:36 09/08/16 03:36 Labs: Abnormal Lab Results - Last 24 Hours (Table) 09/07/16 09/07/16 09/07/16 Range/Units 18:57 20:33 22:28 WBC (3.8-10.6) k/uL MCHC (31.0-37.0) g/dL Plt Count (150-450) k/uL Neutrophils # (1.3-7.7) k/uL Lymphocytes # (1.0-4.8) k/uL ABG pH (7.35-7.45) ABG pCO2 (35-45) mmHg ABG pO2 (83-108) mmHg ABG O2 Saturation (94-97) % Potassium (3.5-5.1) mmol/L Carbon Dioxide (22-30) mmol/L BUN (7-17) mg/dL Creatinine (0.52-1.04) mg/dL Glucose (74-99) mg/dL POC Glucose (mg/dL) 319 H 360 H (75-99) mg/dL Hemoglobin A1c (4.2-6.1) % Plasma Lactic Acid George 2.8 H* (0.7-2.0) mmol/L AST (14-36) U/L Total Creatine Kinase (30-135) U/L CK-MB (CK-2) (0.0-2.4) ng/mL 09/07/16 09/07/16 09/07/16 Range/Units 22:28 22:28 23:09 WBC 12.3 H (3.8-10.6) k/uL MCHC (31.0-37.0) g/dL Plt Count (150-450) k/uL Neutrophils # 10.0 H (1.3-7.7) k/uL Lymphocytes # (1.0-4.8) k/uL ABG pH (7.35-7.45) ABG pCO2 (35-45) mmHg ABG pO2 (83-108) mmHg ABG O2 Saturation (94-97) % Potassium (3.5-5.1) mmol/L Carbon Dioxide 20 L (22-30) mmol/L BUN 48 H (7-17) mg/dL Creatinine 1.40 H (0.52-1.04) mg/dL Glucose 415 H (74-99) mg/dL POC Glucose (mg/dL) 352 H (75-99) mg/dL Hemoglobin A1c (4.2-6.1) % Plasma Lactic Acid George (0.7-2.0) mmol/L AST (14-36) U/L Total Creatine Kinase (30-135) U/L CK-MB (CK-2) (0.0-2.4) ng/mL 09/07/16 09/08/16 09/08/16 Range/Units 23:46 00:42 00:42 WBC (3.8-10.6) k/uL MCHC (31.0-37.0) g/dL Plt Count (150-450) k/uL Neutrophils # (1.3-7.7) k/uL Lymphocytes # (1.0-4.8) k/uL ABG pH 7.46 H (7.35-7.45) ABG pCO2 29 L (35-45) mmHg ABG pO2 62 L (83-108) mmHg ABG O2 Saturation 93.0 L (94-97) % Potassium 5.7 H (3.5-5.1) mmol/L Carbon Dioxide (22-30) mmol/L BUN (7-17) mg/dL Creatinine (0.52-1.04) mg/dL Glucose (74-99) mg/dL POC Glucose (mg/dL) (75-99) mg/dL Hemoglobin A1c (4.2-6.1) % Plasma Lactic Acid George (0.7-2.0) mmol/L AST (14-36) U/L Total Creatine Kinase 1380 H (30-135) U/L CK-MB (CK-2) 4.9 H* (0.0-2.4) ng/mL 09/08/16 09/08/16 09/08/16 Range/Units 03:36 03:36 03:36 WBC (3.8-10.6) k/uL MCHC 29.6 L (31.0-37.0) g/dL Plt Count 142 L (150-450) k/uL Neutrophils # 8.0 H (1.3-7.7) k/uL Lymphocytes # 0.9 L (1.0-4.8) k/uL ABG pH (7.35-7.45) ABG pCO2 (35-45) mmHg ABG pO2 (83-108) mmHg ABG O2 Saturation (94-97) % Potassium 5.7 H (3.5-5.1) mmol/L Carbon Dioxide 19 L (22-30) mmol/L BUN 49 H (7-17) mg/dL Creatinine 1.40 H (0.52-1.04) mg/dL Glucose 495 H* (74-99) mg/dL POC Glucose (mg/dL) (75-99) mg/dL Hemoglobin A1c (4.2-6.1) % Plasma Lactic Acid George 2.7 H* (0.7-2.0) mmol/L AST 66 H (14-36) U/L Total Creatine Kinase (30-135) U/L CK-MB (CK-2) (0.0-2.4) ng/mL 09/08/16 09/08/16 09/08/16 Range/Units 03:36 06:00 08:05 WBC (3.8-10.6) k/uL MCHC (31.0-37.0) g/dL Plt Count (150-450) k/uL Neutrophils # (1.3-7.7) k/uL Lymphocytes # (1.0-4.8) k/uL ABG pH (7.35-7.45) ABG pCO2 (35-45) mmHg ABG pO2 (83-108) mmHg ABG O2 Saturation (94-97) % Potassium (3.5-5.1) mmol/L Carbon Dioxide (22-30) mmol/L BUN (7-17) mg/dL Creatinine (0.52-1.04) mg/dL Glucose (74-99) mg/dL POC Glucose (mg/dL) 448 H 455 H (75-99) mg/dL Hemoglobin A1c 7.7 H (4.2-6.1) % Plasma Lactic Acid George (0.7-2.0) mmol/L AST (14-36) U/L Total Creatine Kinase (30-135) U/L CK-MB (CK-2) (0.0-2.4) ng/mL 09/08/16 09/08/16 09/08/16 Range/Units 09:14 10:08 11:09 WBC (3.8-10.6) k/uL MCHC (31.0-37.0) g/dL Plt Count (150-450) k/uL Neutrophils # (1.3-7.7) k/uL Lymphocytes # (1.0-4.8) k/uL ABG pH (7.35-7.45) ABG pCO2 (35-45) mmHg ABG pO2 (83-108) mmHg ABG O2 Saturation (94-97) % Potassium (3.5-5.1) mmol/L Carbon Dioxide (22-30) mmol/L BUN (7-17) mg/dL Creatinine (0.52-1.04) mg/dL Glucose (74-99) mg/dL POC Glucose (mg/dL) 423 H 372 H 294 H (75-99) mg/dL Hemoglobin A1c (4.2-6.1) % Plasma Lactic Acid George (0.7-2.0) mmol/L AST (14-36) U/L Total Creatine Kinase (30-135) U/L CK-MB (CK-2) (0.0-2.4) ng/mL 09/08/16 09/08/16 Range/Units 12:08 12:55 WBC (3.8-10.6) k/uL MCHC (31.0-37.0) g/dL Plt Count (150-450) k/uL Neutrophils # (1.3-7.7) k/uL Lymphocytes # (1.0-4.8) k/uL ABG pH (7.35-7.45) ABG pCO2 (35-45) mmHg ABG pO2 (83-108) mmHg ABG O2 Saturation (94-97) % Potassium (3.5-5.1) mmol/L Carbon Dioxide (22-30) mmol/L BUN (7-17) mg/dL Creatinine (0.52-1.04) mg/dL Glucose (74-99) mg/dL POC Glucose (mg/dL) 253 H 229 H (75-99) mg/dL Hemoglobin A1c (4.2-6.1) % Plasma Lactic Acid George (0.7-2.0) mmol/L AST (14-36) U/L Total Creatine Kinase (30-135) U/L CK-MB (CK-2) (0.0-2.4) ng/mL Assessment and Plan (1) Altered mental status Status: Acute (2) Acute confusion Status: Acute (3) 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 Due to the acute nature of some of her symptoms, we will order MRI of the brain, EEG, carotid Doppler, lipid panel and homocysteine level. Continue treatment of her other considerable comorbidities. I will start her on rectal aspirin. Further recommendations will be given based on the above studies. I have reviewed the history and physical on the above patient. I have reviewed the above note, and agree.
[2016-09-08] MEDS ORDERED: VANCOMYCIN 1,500 MG in SODIUM CHLORIDE 0.9% 250 ML IVPB ONE (14:00)
[2016-09-08 14:04] LABS: Glucose,Whole Blood 201 mg/dL (75-99)
[2016-09-08 14:30] LABS: Cholesterol 159 mg/dL (<200); HDL Cholesterol 36 mg/dL (40-60); Triglycerides 257 mg/dL (<150)
--- NOTE | 2016-09-08 15:28 | US ---
EXAMINATION TYPE: US carotid duplex BILAT DATE OF EXAM: 09/08/2016 3:08 PM COMPARISON: NONE CLINICAL HISTORY: acute confusion, poor historian. EXAM MEASUREMENTS: RIGHT: Peak Systolic Velocity (PSV) cm/sec ----- Right CCA: 67.7 ----- Right ICA: 76.8 ----- Right ECA: 112.9 ICA/CCA ratio: 1.1 RIGHT: End Diastole cm/sec ----- Right CCA: 9.3 ----- Right ICA: 15.5 ----- Right ECA: 0.0 LEFT: Peak Systolic Velocity (PSV) cm/sec ----- Left CCA: 72.5 ----- Left ICA: 82.4 ----- Left ECA: 106.0 ICA/CCA ratio: 1.1 LEFT: End Diastole cm/sec ----- Left CCA: 21.9 ----- Left ICA: 17.5 ----- Left ECA: 0.0 VERTEBRALS (direction of flow): Right Vertebral: Antegrade Left Vertebral: Antegrade TECHNOLOGIST IMPRESSION: No significant stenosis seen, no elevated velocities, plaque seen in bilate ral bulbs. Small amount of plaque seen in mid anterior right CCA. Bilateral wall thickening. IMPRESSION: There is antegrade flow in the vertebral arteries. The images and measurements suggest 2 5% stenosis in both internal carotid arteries. Criteria for Assigning % of Stenosis / Diameter reduction (Estimation based on the indirect measurements of the internal carotid artery velocities (ICA PSV). 1. Normal (no stenosis)=ICA PSV < 125 cm/s: ratio < 2.0: ICA EDV<40 cm/s. 2. Less than 50% stenosis=ICA PSV < 125 cm/s: ratio < 2.0: ICA EDV<40 cm/s. 3. 50 to 69% stenosis=ICA PSV of 125 to 230 cm/s: ration 2.0 ? 4.0: ICA EDV 40-100 cm/s. 4. Greater than 70% stenosis to near occlusion= ICA PSV > 230 cm/s: ratio > 4.0: ICA EDV > 100 cm/s. 5. Near occlusion= ICA PSV velocities may be low or undetectable: variable ratio and ICA EDV. 6. Total occlusion=unable to detect flow.
[2016-09-08 15:31] LABS: Glucose,Whole Blood 203 mg/dL (75-99)
--- NOTE | 2016-09-08 17:03 | CONS ---
DATE OF CONSULTATION: Dede Freeman is a 61-year-old female who was transferred from [facility] with a change in mental status and questionable pulmonary edema. Patient had sarcoidosis, olivopontine cerebral atrophy, not ambulatory who apparently was getting more confused. She had a CT scan done in [place] that raised the possibility of pulmonary edema but the patient was noted to be sepsis. Patient is on the BiPAP. She appears to be more awake according to the nursing staff. She is hypertensive receiving IV fluid. She is in sinus mechanism. She denies any chest pain, although the history is somewhat limited from her, but she has no symptoms of chest discomfort. She denies any peripheral edema. Reviewing the old records, she was in the hospital in November of this year with nausea and vomiting and abdominal discomfort and had a prolonged presentation at that time. The record says that she had a history of CAD, although I do not have any clear documentation of that. At this point she has a history of chronic kidney disease. Prior history of sigmoid volvulus and colonoscopic decompression. Her coronary risk factors are positive for hypertension, hyperlipidemia, and diabetes mellitus. She is a nonsmoker. She underwent surgical intervention during her last admission for sigmoid volvulus and dilated sigmoid. She is on Norepinephrine at this time to maintain her blood pressure. Her medications at the time of transfer included: 1. Metformin. 2. Maxzide. 3. Paxil. 4. Ditropan. 5. Zestril. 6. Insulin. 7. Amaryl. 8. Pulmicort. 9. Lipitor. 10. Aspirin. REVIEW OF SYSTEMS: Somewhat limited, but she had dyspnea on exertion. She had abdominal pain before she had a chronic indwelling catheter. She is nonambulatory. PHYSICAL EXAMINATION: She is 61-year-old female, obese on the BiPAP, hypotensive. Blood pressure running in the 80s and 90s. Heart rate in the one teens. HEAD: Normocephalic. EYES: Sclerae anicteric. NECK: No bruit. LUNGS: Clear to auscultation anteriorly. HEART: Tachycardic. S1, S2, no S3, with a systolic murmur. No diastolic murmur. ABDOMEN: Soft, obese, nontender. EXTREMITIES: No edema. Lab data revealed on presentation: White blood cells 12.2. Her BUN and creatinine 42 and 1.35. They were normal in November. Potassium 5.8. NT-proBNP is 1790. Today her hemoglobin is 13.3, pH 7.46, pO2 62. Potassium is 5.7. Her EKG revealed sinus tachycardia with nonspecific ST-T wave changes. Her chest x-ray revealed no evidence of heart failure. IMPRESSION: 1. Probably sepsis could be urinary tract infection. 2. Hypertension. 3. History of hypertension. 4. Renal failure. 5. Hyperlipidemia. 6. Diabetes mellitus. RECOMMENDATION: From the cardiac standpoint, the patient is receiving IV fluids. Her diuretics have been stopped. I do not believe she is fluid overload. I will obtain an echocardiogram and Doppler to evaluate left ventricular systolic function. Otherwise continue the rest of her medical regimen. Antibiotics has been initiated by Dr. Gilbert. Depending on her progress, further recommendation will be made. Thank you for this consult. We will follow with you.
[2016-09-08 17:14] LABS: Glucose,Whole Blood 121 mg/dL (75-99)
[2016-09-08 18:11] LABS: Glucose,Whole Blood 124 mg/dL (75-99)
[2016-09-08] MEDS: ACETAMINOPHEN TAB 325 MG TAB PO PRN (19:07)
[2016-09-08 19:38] LABS: Glucose,Whole Blood 171 mg/dL (75-99)
[2016-09-08] MEDS ORDERED: INSULIN DETEMIR 100 UNIT/ML 10 ML VIAL SQ SCH (21:00)
[2016-09-08 21:27] LABS: Glucose,Whole Blood 184 mg/dL (75-99)
[2016-09-08 22:08] LABS: Glucose,Whole Blood 183 mg/dL (75-99)
--- NOTE | 2016-09-08 23:07 | P.CONS ---
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 She's not been seen by pulmonary critical care and neurology a sitting or lying neurological difficulties. Infectious diseases consultation requested regarding her urinary infection. She was seen by the service emergency 2016 which point in time she had a somewhat resistant urinary tract infection as well as a sigmoid volvulus that required exploratory laparotomy and colostomy placement. She does have limited ability to interact with the observer. She however is somewhat sedated this point in time and not as responsive as she has been in the past. She does have her CPAP on and place and seems to be comfortable and does follow some simple commands from the observer at this time. Review of Systems ROS unobtainable: due to mental status Past Medical History Past Medical History: Coronary Artery Disease (CAD), Diabetes Mellitus, Hyperlipidemia, Hypertension, Sleep Apnea/CPAP/BIPAP Additional Past Medical History / Comment(s): Morbid obesity, olivopontine and cerebellar degeneration, diabetes mellitus, chronic constipation, chronic urinary incontinence and the patient has a chronic Humphrey catheter in place with previous history of frequent urinary tract infections, difficulty with mobility and the patient was around with the help of a motorized scooter, obstructive sleep apnea, bronchial asthma, chronic hydronephrosis of the kidneys, hyperlipidemia, coronary artery disease, hypertension History of Any Multi-Drug Resistant Organisms: C-DIFF, 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 MDRO Source:: c-diff, mrsa 2010 in blood Past Surgical History: No Surgical Hx Reported, Bowel Resection, Tubal Ligation Additional Past Surgical History / Comment(s): carpal tunnel Past Anesthesia/Blood Transfusion Reactions: No Reported Reaction Past Psychological History: Depression Smoking Status: Never smoker Past Alcohol Use History: None Reported Past Drug Use History: None Reported - Past Family History Father Family Medical History: Cancer Additional Family Medical History / Comment(s): from pancreatic cancer Mother Family Medical History: Congestive Heart Failure (CHF), Diabetes Mellitus, Dialysis Additional Family Medical History / Comment(s): from CHF Medications and Allergies Home Medications and Allergies Comment(s): Current Medications Acetaminophen (Tylenol Tab) 650 mg PO Q6HR PRN PRN Reason: Fever and/ or Pain Last Admin: 09/08/16 19:07 Dose: 650 mg Albuterol/Ipratropium (Duoneb 0.5 Mg-3 Mg/3 Ml Soln) 3 ml INHALATION RT-QID PRN PRN Reason: Shortness Of Breath Or Wheezing Albuterol/Ipratropium (Duoneb 0.5 Mg-3 Mg/3 Ml Soln) 3 ml INHALATION RT-QID [facility] Last Admin: 09/08/16 19:56 Dose: 3 ml Aspirin (Aspirin) 300 mg RECTAL DAILY [facility] Enoxaparin Sodium (Lovenox) 30 mg SQ DAILY [facility] Last Admin: 09/08/16 10:43 Dose: 30 mg Ceftriaxone Sodium 1,000 mg/ (Sodium Chloride) 50 mls @ 100 mls/hr IVPB Q24HR [facility] Last Admin: 09/08/16 10:48 Dose: 100 mls/hr Sodium Chloride (Saline 0.9%) 1,000 mls @ 100 mls/hr IV .Q10H [facility] Last Admin: 09/08/16 18:35 Dose: 100 mls/hr Acetaminophen 1,000 mg/ IV (Solution) 100 mls @ 400 mls/hr IVPB Q6HR PRN PRN Reason: Fever and/or Mild Pain Stop: 09/09/16 01:39 Last Admin: 09/08/16 09:12 Dose: 400 mls/hr Insulin Human Regular 100 unit (/ Sodium Chloride) 101 mls @ 0 mls/hr IV .Q0M [facility]; Per Protocol PRN Reason: Protocol Last Admin: 09/08/16 21:33 Dose: 4 mls/hr, 4 mls/hr Norepinephrine Bitartrate 4 mg (/ Sodium Chloride) 254 mls @ 0 mls/hr IV .Q0M [facility]; Titrate PRN Reason: Protocol Last Titration: 09/08/16 22:03 Dose: Infused Naloxone HCl (Narcan) 0.2 mg IV Q2M PRN PRN Reason: Opioid Reversal Pantoprazole Sodium (Protonix) 40 mg IV DAILY [facility] Last Admin: 09/08/16 10:44 Dose: 40 mg Home Medications Medication Instructions Recorded Confirmed Type Aspirin 81 mg PO DAILY 11/10/15 09/07/16 History Atorvastatin Calcium [Lipitor] 20 mg PO HS 11/10/15 09/07/16 History Baclofen [Lioresal] 10 mg PO BID 11/10/15 09/07/16 History Budesonide [Pulmicort] 0.5 mg INHALATION RT-BID 11/10/15 09/07/16 History Glimepiride [Amaryl] 2 mg PO AC-BRKFST 11/10/15 09/07/16 History INSULIN LISPRO (HumaLOG) [humaLOG] 20 units SQ AC-TID 11/10/15 09/07/16 History Imipramine [Tofranil] 25 mg PO BID 11/10/15 09/07/16 History Insulin Detemir [Levemir] 35 unit SQ HS 11/10/15 09/07/16 History Lactulose 20 gm PO DAILY 11/10/15 09/07/16 History Neomycin/Polymyxin B Sulf/Hc 1 drop BOTH EYES BID 11/10/15 09/07/16 History [Aptjypmg-Pagj-Qa Ophth Susp] [place]-3 Fatty Acids/Fish Oil [Fish 1 cap PO DAILY 11/10/15 09/07/16 History Oil 1,000 mg Softgel] PARoxetine HCL [Paxil] 20 mg PO DAILY 11/10/15 09/07/16 History metFORMIN HCL [Glucophage] 1,000 mg PO BID 11/10/15 09/07/16 History Albuterol Nebulized [Ventolin 2.5 mg INHALATION RT-QID 11/11/15 09/07/16 History Nebulized] Docusate [Colace] 100 mg PO QID 11/11/15 09/07/16 History Lisinopril [Zestril] 10 mg PO DAILY 11/11/15 09/07/16 History Oxybutynin Xl [Ditropan XL] 5 mg PO DAILY 11/11/15 09/07/16 History Calcium Carbonate/Vitamin D3 1 tab PO DAILY 09/07/16 09/07/16 History [Calcium 600-Vit D3 200 Tablet] INSULIN LISPRO (humaLOG) [HumaLOG] See Protocol SQ AC-TID 09/07/16 09/07/16 History L.acidoph,Paracasei, B.lactis 1 cap PO DAILY 09/07/16 09/07/16 History [Probiotic] Multivitamins, Thera [Multivitamin] 1 tab PO DAILY 09/07/16 09/07/16 History Triamterene-Hctz 37.5-25Mg 1 tab PO DAILY 09/07/16 09/07/16 History [Maxzide 37.5-25] Allergies Allergy/AdvReac Type Severity Reaction Status Date / Time No Known Allergies Allergy Verified 09/07/16 18:21 Physical Exam Vitals: Vital Signs Temp Pulse Pulse Pulse Resp BP BP 09/08/16 22:00 108 H 20 85/59 09/08/16 21:00 99.3 F 113 H 10 L 80/62 09/08/16 20:07 108 H 09/08/16 20:00 100.3 F H 109 H 15 85/42 09/08/16 19:56 109 H 09/08/16 18:00 105 H 27 H 106/52 09/08/16 17:00 103 H 18 88/50 09/08/16 16:00 100.6 F H 141 H 22 94/45 09/08/16 15:00 108 H 22 90/61 09/08/16 14:00 106 H 20 94/57 09/08/16 13:00 109 H 16 85/49 09/08/16 12:00 98.9 F 112 H 19 92/56 09/08/16 11:30 114 H 18 94/53 09/08/16 11:00 113 H 22 75/40 09/08/16 10:00 114 H 24 95/59 09/08/16 09:30 99.7 F H 118 H 20 76/52 09/08/16 09:00 115 H 21 84/43 09/08/16 08:30 120 H 21 85/54 09/08/16 08:00 101.8 F H 113 H 18 71/49 09/08/16 07:00 102.4 F H 142 H 23 90/52 09/08/16 06:00 102.8 F H 124 H 24 93/54 09/08/16 05:00 98.1 F 124 H 20 122/68 09/08/16 04:00 99.8 F H 126 H 26 H 113/67 09/08/16 03:00 100.3 F H 126 H 25 H 108/66 09/08/16 02:00 102.6 F H 128 H 21 126/60 09/08/16 01:00 101.5 F H 136 H 23 108/74 09/08/16 00:00 102.6 F H 134 H 26 H 109/65 09/07/16 23:15 103.2 F H 132 H 23 103/82 Pulse Ox 09/08/16 22:00 98 09/08/16 21:00 97 09/08/16 20:07 09/08/16 20:00 100 09/08/16 19:56 09/08/16 18:00 98 09/08/16 17:00 97 09/08/16 16:00 99 09/08/16 15:00 99 09/08/16 14:00 99 09/08/16 13:00 99 09/08/16 12:00 99 09/08/16 11:30 97 09/08/16 11:00 09/08/16 10:00 99 09/08/16 09:30 99 09/08/16 09:00 100 09/08/16 08:30 99 09/08/16 08:00 09/08/16 07:00 100 09/08/16 06:00 98 09/08/16 05:00 99 09/08/16 04:00 96 09/08/16 03:00 96 09/08/16 02:00 99 09/08/16 01:00 96 09/08/16 00:00 93 L 09/07/16 23:15 94 L Intake and Output 09/08/16 09/08/16 09/08/16 06:59 14:59 22:59 Intake Total 1650 2765.430 1089.570 Output Total 787 768 3713 Balance 675 2135.430 59.570 Intake: IV 2200 800 .9ns bolus 2000 Sodium Chloride 0.9% 1, 200 800 000 ml @ 100 mls/hr IV . Q10H [facility] Rx#:[id number] Intake, IV Titration 1650 565.430 289.570 Amount ACETAMINOPHEN IV (For NPO 100 ) 1,000 mg In Empty Bag 1 bag @ 400 mls/hr IVPB Q6HR PRN Rx#:[id number] ACETAMINOPHEN IV (For NPO 300 ) 1,000 mg In Empty Bag 1 bag @ 400 mls/hr IVPB Q6HR [facility] Rx#:[id number] Insulin Regular 100 unit 52.666 48.334 In Sodium Chloride 0.9% 100 ml @ Per Protocol IV .Q0M [facility] Rx#:[id number] Norepinephrine 4 mg In 12.764 241.236 Sodium Chloride 0.9% 250 ml @ Titrate IV .Q0M [facility] Rx#:[id number] Sodium Chloride 0.9% 1, 300 200 000 ml @ 100 mls/hr IV . Q10H [facility] Rx#:[id number] Sodium Chloride 0.9% 1, 1000 000 ml @ 500 mls/hr IV . Q2H [facility] Rx#:[id number] Vancomycin 1,000 mg In 250 Sodium Chloride 0.9% 250 ml @ 125 mls/hr IVPB ONCE [facility] Rx#:[id number] Output: Urine 055 869 3067 Other: Voiding Method Indwelling Catheter Indwelling Catheter Indwelling Catheter Weight 136.078 kg Patient Weight 09/09/16 06:59 Weight 136.078 kg HEENT: anicteric without significant nasal or oral lesions dentition is poor but no thrush Neck: The neck is supple without significant lymphadenopathy or thyromegaly. Lungs: there is symmetrical air entry to the bilateral lue bibasilar c Heart: irregular with an audible S1-S2, no S3 no S4. There is no significant murmur click or rub, PMI was nondisplaced. Abdomen: obesePositive bowel sounds soft and nontender without palpable masses or organomegaly. There was no guarding or rebound.ostomy is functioning well Extremities: The upper extremities have excellent pulses they are symmetric, no significant petechiae or telangiectasia. No splinter hemorrhages were noted. The lower extremities are free from significant edema. The peripheral pulses were 2+ and symmetric. Neuro: arousable and able to follow simple commands Results CBC & Chem 7: 09/08/16 03:36 09/08/16 19:11 Labs: Abnormal Lab Results - Last 24 Hours (Table) 09/07/16 09/07/16 09/07/16 Range/Units 22:28 22:28 22:28 WBC 12.3 H (3.8-10.6) k/uL MCHC (31.0-37.0) g/dL Plt Count (150-450) k/uL Neutrophils # 10.0 H (1.3-7.7) k/uL Lymphocytes # (1.0-4.8) k/uL ABG pH (7.35-7.45) ABG pCO2 (35-45) mmHg ABG pO2 (83-108) mmHg ABG O2 Saturation (94-97) % Sodium (137-145) mmol/L Potassium (3.5-5.1) mmol/L Chloride (98-107) mmol/L Carbon Dioxide 20 L (22-30) mmol/L BUN 48 H (7-17) mg/dL Creatinine 1.40 H (0.52-1.04) mg/dL Glucose 415 H (74-99) mg/dL POC Glucose (mg/dL) (75-99) mg/dL Hemoglobin A1c (4.2-6.1) % Plasma Lactic Acid George 2.8 H* (0.7-2.0) mmol/L AST (14-36) U/L Total Creatine Kinase (30-135) U/L CK-MB (CK-2) (0.0-2.4) ng/mL Triglycerides (<150) mg/dL HDL Cholesterol (40-60) mg/dL 09/07/16 09/07/16 09/08/16 Range/Units 23:09 23:46 00:42 WBC (3.8-10.6) k/uL MCHC (31.0-37.0) g/dL Plt Count (150-450) k/uL Neutrophils # (1.3-7.7) k/uL Lymphocytes # (1.0-4.8) k/uL ABG pH 7.46 H (7.35-7.45) ABG pCO2 29 L (35-45) mmHg ABG pO2 62 L (83-108) mmHg ABG O2 Saturation 93.0 L (94-97) % Sodium (137-145) mmol/L Potassium (3.5-5.1) mmol/L Chloride (98-107) mmol/L Carbon Dioxide (22-30) mmol/L BUN (7-17) mg/dL Creatinine (0.52-1.04) mg/dL Glucose (74-99) mg/dL POC Glucose (mg/dL) 352 H (75-99) mg/dL Hemoglobin A1c (4.2-6.1) % Plasma Lactic Acid George (0.7-2.0) mmol/L AST (14-36) U/L Total Creatine Kinase 1380 H (30-135) U/L CK-MB (CK-2) 4.9 H* (0.0-2.4) ng/mL Triglycerides (<150) mg/dL HDL Cholesterol (40-60) mg/dL 09/08/16 09/08/16 09/08/16 Range/Units 00:42 03:36 03:36 WBC (3.8-10.6) k/uL MCHC 29.6 L (31.0-37.0) g/dL Plt Count 142 L (150-450) k/uL Neutrophils # 8.0 H (1.3-7.7) k/uL Lymphocytes # 0.9 L (1.0-4.8) k/uL ABG pH (7.35-7.45) ABG pCO2 (35-45) mmHg ABG pO2 (83-108) mmHg ABG O2 Saturation (94-97) % Sodium (137-145) mmol/L Potassium 5.7 H 5.7 H (3.5-5.1) mmol/L Chloride (98-107) mmol/L Carbon Dioxide 19 L (22-30) mmol/L BUN 49 H (7-17) mg/dL Creatinine 1.40 H (0.52-1.04) mg/dL Glucose 495 H* (74-99) mg/dL POC Glucose (mg/dL) (75-99) mg/dL Hemoglobin A1c (4.2-6.1) % Plasma Lactic Acid George (0.7-2.0) mmol/L AST 66 H (14-36) U/L Total Creatine Kinase (30-135) U/L CK-MB (CK-2) (0.0-2.4) ng/mL Triglycerides (<150) mg/dL HDL Cholesterol (40-60) mg/dL 09/08/16 09/08/16 09/08/16 Range/Units 03:36 03:36 06:00 WBC (3.8-10.6) k/uL MCHC (31.0-37.0) g/dL Plt Count (150-450) k/uL Neutrophils # (1.3-7.7) k/uL Lymphocytes # (1.0-4.8) k/uL ABG pH (7.35-7.45) ABG pCO2 (35-45) mmHg ABG pO2 (83-108) mmHg ABG O2 Saturation (94-97) % Sodium (137-145) mmol/L Potassium (3.5-5.1) mmol/L Chloride (98-107) mmol/L Carbon Dioxide (22-30) mmol/L BUN (7-17) mg/dL Creatinine (0.52-1.04) mg/dL Glucose (74-99) mg/dL POC Glucose (mg/dL) 448 H (75-99) mg/dL Hemoglobin A1c 7.7 H (4.2-6.1) % Plasma Lactic Acid George 2.7 H* (0.7-2.0) mmol/L AST (14-36) U/L Total Creatine Kinase (30-135) U/L CK-MB (CK-2) (0.0-2.4) ng/mL Triglycerides (<150) mg/dL HDL Cholesterol (40-60) mg/dL 09/08/16 09/08/16 09/08/16 Range/Units 08:05 09:14 10:08 WBC (3.8-10.6) k/uL MCHC (31.0-37.0) g/dL Plt Count (150-450) k/uL Neutrophils # (1.3-7.7) k/uL Lymphocytes # (1.0-4.8) k/uL ABG pH (7.35-7.45) ABG pCO2 (35-45) mmHg ABG pO2 (83-108) mmHg ABG O2 Saturation (94-97) % Sodium (137-145) mmol/L Potassium (3.5-5.1) mmol/L Chloride (98-107) mmol/L Carbon Dioxide (22-30) mmol/L BUN (7-17) mg/dL Creatinine (0.52-1.04) mg/dL Glucose (74-99) mg/dL POC Glucose (mg/dL) 455 H 423 H 372 H (75-99) mg/dL Hemoglobin A1c (4.2-6.1) % Plasma Lactic Acid George (0.7-2.0) mmol/L AST (14-36) U/L Total Creatine Kinase (30-135) U/L CK-MB (CK-2) (0.0-2.4) ng/mL Triglycerides (<150) mg/dL HDL Cholesterol (40-60) mg/dL 09/08/16 09/08/16 09/08/16 Range/Units 11:09 11:45 11:45 WBC (3.8-10.6) k/uL MCHC (31.0-37.0) g/dL Plt Count (150-450) k/uL Neutrophils # (1.3-7.7) k/uL Lymphocytes # (1.0-4.8) k/uL ABG pH (7.35-7.45) ABG pCO2 (35-45) mmHg ABG pO2 (83-108) mmHg ABG O2 Saturation (94-97) % Sodium 150 H (137-145) mmol/L Potassium 5.8 H (3.5-5.1) mmol/L Chloride 113 H (98-107) mmol/L Carbon Dioxide (22-30) mmol/L BUN 48 H (7-17) mg/dL Creatinine 1.32 H (0.52-1.04) mg/dL Glucose 280 H (74-99) mg/dL POC Glucose (mg/dL) 294 H (75-99) mg/dL Hemoglobin A1c (4.2-6.1) % Plasma Lactic Acid George (0.7-2.0) mmol/L AST (14-36) U/L Total Creatine Kinase (30-135) U/L CK-MB (CK-2) (0.0-2.4) ng/mL Triglycerides 257 H (<150) mg/dL HDL Cholesterol 36 L (40-60) mg/dL 09/08/16 09/08/16 09/08/16 Range/Units 12:08 12:55 14:02 WBC (3.8-10.6) k/uL MCHC (31.0-37.0) g/dL Plt Count (150-450) k/uL Neutrophils # (1.3-7.7) k/uL Lymphocytes # (1.0-4.8) k/uL ABG pH (7.35-7.45) ABG pCO2 (35-45) mmHg ABG pO2 (83-108) mmHg ABG O2 Saturation (94-97) % Sodium (137-145) mmol/L Potassium (3.5-5.1) mmol/L Chloride (98-107) mmol/L Carbon Dioxide (22-30) mmol/L BUN (7-17) mg/dL Creatinine (0.52-1.04) mg/dL Glucose (74-99) mg/dL POC Glucose (mg/dL) 253 H 229 H 201 H (75-99) mg/dL Hemoglobin A1c (4.2-6.1) % Plasma Lactic Acid George (0.7-2.0) mmol/L AST (14-36) U/L Total Creatine Kinase (30-135) U/L CK-MB (CK-2) (0.0-2.4) ng/mL Triglycerides (<150) mg/dL HDL Cholesterol (40-60) mg/dL 09/08/16 09/08/16 09/08/16 Range/Units 15:29 17:11 18:09 WBC (3.8-10.6) k/uL MCHC (31.0-37.0) g/dL Plt Count (150-450) k/uL Neutrophils # (1.3-7.7) k/uL Lymphocytes # (1.0-4.8) k/uL ABG pH (7.35-7.45) ABG pCO2 (35-45) mmHg ABG pO2 (83-108) mmHg ABG O2 Saturation (94-97) % Sodium (137-145) mmol/L Potassium (3.5-5.1) mmol/L Chloride (98-107) mmol/L Carbon Dioxide (22-30) mmol/L BUN (7-17) mg/dL Creatinine (0.52-1.04) mg/dL Glucose (74-99) mg/dL POC Glucose (mg/dL) 203 H 121 H 124 H (75-99) mg/dL Hemoglobin A1c (4.2-6.1) % Plasma Lactic Acid George (0.7-2.0) mmol/L AST (14-36) U/L Total Creatine Kinase (30-135) U/L CK-MB (CK-2) (0.0-2.4) ng/mL Triglycerides (<150) mg/dL HDL Cholesterol (40-60) mg/dL 09/08/16 09/08/16 09/08/16 Range/Units 19:35 21:24 22:06 WBC (3.8-10.6) k/uL MCHC (31.0-37.0) g/dL Plt Count (150-450) k/uL Neutrophils # (1.3-7.7) k/uL Lymphocytes # (1.0-4.8) k/uL ABG pH (7.35-7.45) ABG pCO2 (35-45) mmHg ABG pO2 (83-108) mmHg ABG O2 Saturation (94-97) % Sodium (137-145) mmol/L Potassium (3.5-5.1) mmol/L Chloride (98-107) mmol/L Carbon Dioxide (22-30) mmol/L BUN (7-17) mg/dL Creatinine (0.52-1.04) mg/dL Glucose (74-99) mg/dL POC Glucose (mg/dL) 171 H 184 H 183 H (75-99) mg/dL Hemoglobin A1c (4.2-6.1) % Plasma Lactic Acid George (0.7-2.0) mmol/L AST (14-36) U/L Total Creatine Kinase (30-135) U/L CK-MB (CK-2) (0.0-2.4) ng/mL Triglycerides (<150) mg/dL HDL Cholesterol (40-60) mg/dL Laboratory Results WBC 10.0 k/uL (3.8-10.6) 09/08/16 03:36 RBC 4.66 m/uL (3.80-5.40) 09/08/16 03:36 Hgb 13.3 gm/dL (11.4-16.0) 09/08/16 03:36 Hct 45.1 % (34.0-46.0) 09/08/16 03:36 MCV 96.9 fL (80.0-100.0) 09/08/16 03:36 MCH 28.7 pg (25.0-35.0) 09/08/16 03:36 MCHC 29.6 g/dL (31.0-37.0) L 09/08/16 03:36 RDW 14.1 % (11.5-15.5) 09/08/16 03:36 Plt Count 142 k/uL (150-450) L 09/08/16 03:36 Neutrophils % 79 % 09/08/16 03:36 Lymphocytes % 9 % 09/08/16 03:36 Monocytes % 9 % 09/08/16 03:36 Eosinophils % 0 % 09/08/16 03:36 Basophils % 0 % 09/08/16 03:36 Neutrophils # 8.0 k/uL (1.3-7.7) H 09/08/16 03:36 Lymphocytes # 0.9 k/uL (1.0-4.8) L 09/08/16 03:36 Monocytes # 1.0 k/uL (0-1.0) 09/08/16 03:36 Eosinophils # 0.0 k/uL (0-0.7) 09/08/16 03:36 Basophils # 0.0 k/uL (0-0.2) 09/08/16 03:36 Hypochromasia Moderate 09/08/16 03:36 PT 10.9 sec (9.0-12.0) 09/08/16 00:42 INR 1.1 (<1.1) 09/08/16 00:42 APTT 27.4 sec (22.0-30.0) 09/08/16 00:42 Sample Site LRAD 09/07/16 23:46 ABG pH 7.46 (7.35-7.45) H 09/07/16 23:46 ABG pCO2 29 mmHg (35-45) L 09/07/16 23:46 ABG pO2 62 mmHg (83-108) L 09/07/16 23:46 ABG HCO3 21 mmol/L (21-25) 09/07/16 23:46 ABG Total CO2 21 mmol/L (19-24) 09/07/16 23:46 ABG O2 Saturation 93.0 % (94-97) L 09/07/16 23:46 ABG Base Excess -2.8 mmol/L 09/07/16 23:46 FiO2 36 % 09/07/16 23:46 Sodium 150 mmol/L (137-145) H 09/08/16 11:45 Potassium 4.4 mmol/L (3.5-5.1) 09/08/16 19:11 Chloride 113 mmol/L (98-107) H 09/08/16 11:45 Carbon Dioxide 22 mmol/L (22-30) 09/08/16 11:45 Anion Gap 15 mmol/L 09/08/16 11:45 BUN 48 mg/dL (7-17) H 09/08/16 11:45 Creatinine 1.32 mg/dL (0.52-1.04) H 09/08/16 11:45 Est GFR (MDRD) Af Amer 50 (>60 ml/min/1.73 sqM) 09/08/16 11:45 Est GFR (MDRD) Non-Af 41 (>60 ml/min/1.73 sqM) 09/08/16 11:45 Glucose 280 mg/dL (74-99) H 09/08/16 11:45 POC Glucose (mg/dL) 183 mg/dL (75-99) H 09/08/16 22:06 POC Glu [employer] ID Ascencion Boyle 09/08/16 22:[address] Glu mg/dL 174 mg/dL 09/08/16 03:36 Hemoglobin A1c 7.7 % (4.2-6.1) H 09/08/16 03:36 Plasma Lactic Acid George 2.7 mmol/L (0.7-2.0) H* 09/08/16 03:36 Calcium 8.4 mg/dL (8.4-10.2) 09/08/16 11:45 Phosphorus 3.8 mg/dL (2.5-4.5) 09/08/16 03:36 Magnesium 1.7 mg/dL (1.6-2.3) 09/08/16 03:36 Total Bilirubin 0.6 mg/dL (0.2-1.3) 09/08/16 03:36 AST 66 U/L (14-36) H 09/08/16 03:36 ALT 48 U/L (9-52) 09/08/16 03:36 Alkaline Phosphatase 98 U/L (38-126) 09/08/16 03:36 Total Creatine Kinase 1380 U/L (30-135) H 09/08/16 00:42 CK-MB (CK-2) 4.9 ng/mL (0.0-2.4) H* 09/08/16 00:42 CK-MB (CK-2) Rel Index 0.4 09/08/16 00:42 Troponin I 0.026 ng/mL (0.000-0.034) 09/07/16 22:28 NT-Pro-B Natriuret Pep 2790 pg/mL 09/07/16 22:28 Total Protein 6.7 g/dL (6.3-8.2) 09/08/16 03:36 Albumin 3.6 g/dL (3.5-5.0) 09/08/16 03:36 Triglycerides 257 mg/dL (<150) H 09/08/16 11:45 Cholesterol 159 mg/dL (<200) 09/08/16 11:45 LDL Cholesterol, Calc 72 mg/dL (0-99) 09/08/16 11:45 HDL Cholesterol 36 mg/dL (40-60) L 09/08/16 11:45 Urine Color Yellow 09/07/16 16:33 Urine Appearance Cloudy (Clear) H 09/07/16 16:33 Urine pH 5.0 (5.0-8.0) 09/07/16 16:33 Ur Specific [place] 1.011 (1.001-1.035) 09/07/16 16:33 Urine Protein Trace (Negative) H 09/07/16 16:33 Urine Glucose (UA) Negative (Negative) 09/07/16 16:33 Urine Ketones Negative (Negative) 09/07/16 16:33 Urine Blood Small (Negative) H 09/07/16 16:33 Urine Nitrate Negative (Negative) 09/07/16 16:33 Urine Bilirubin Negative (Negative) 09/07/16 16:33 Urine Urobilinogen <2.0 mg/dL (<2.0) 09/07/16 16:33 Ur Leukocyte Esterase Large (Negative) H 09/07/16 16:33 Urine RBC 9 /hpf (0-5) H 09/07/16 16:33 Urine WBC 28 /hpf (0-5) H 09/07/16 16:33 Ur Squamous Epith Cells <1 /hpf (0-4) 09/07/16 16:33 Hyaline Casts 79 /lpf (0-2) H 09/07/16 16:33 Urine Mucus Rare /hpf (None) H 09/07/16 16:33 C. 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 There was concerns to pulmonary edema and although she had some hypotension there was concerns to fluid resuscitation. Upon arrival does not appear to have congestive heart failure is received several liters of fluid and is having some improvement of her hypotension and has less vasopressor requirements than prior. It is noted she is a poor historian. She does seem to be comfortable. She does have a history of chronic indwelling catheter for urinary retention related to her underlying neurological condition. Likely has urinary tract infection. Prior cultures are reviewed and she would have concerns to Levaquin resistant pathogens. Consequently antibiotic therapy is altered to ceftriaxone to cover the prior isolated pathogens. As noted chest x- ray without evidence of pneumonia or congestive heart failure. Receiving fluid boluses with improvement. As far as her potential for neurological deficits this is difficult to discern at this point in time and neurology is following. There was concerns to loose stool within her Ostomy and this is been sent to theLaboratory and is tested negative for C. diff toxin. Has noted urinalysis is abnormal culture is pending. Blood cultures are pending. Leukocytosis is showing some improvement.did have evidence of acute renal failure at admission with some slight improvement. Status: Acute (2) Altered mental status Status: Acute (3) Diabetes mellitus type 2, insulin dependent Status: Chronic (4) Urinary tract infection Status: Acute
[2016-09-08 23:13] LABS: Glucose,Whole Blood 178 mg/dL (75-99)
[2016-09-09 00:56] LABS: Glucose,Whole Blood 160 mg/dL (75-99)
[2016-09-09 02:04] LABS: Glucose,Whole Blood 152 mg/dL (75-99)
[2016-09-09 04:17] LABS: Glucose,Whole Blood 123 mg/dL (75-99)
[2016-09-09] MEDS: SODIUM CHLORIDE 0.9% 1,000 ML IV SCH ×2 (04:34→21:14)
[2016-09-09 05:02] LABS: Glucose,Whole Blood 156 mg/dL (75-99)
[2016-09-09 05:33] LABS: Basophils % (A) 0 %; CH 28.8; Eosinophils # (A) 0.1 k/uL (0-0.7); Eosinophils % (A) 1 %; HCT 34.5 % (34.0-46.0); HDW 2.51; Luc # (Auto) 0.26; Luc % (Auto) 2; Lymphocytes % (A) 7 %; MCH 28.9 pg (25.0-35.0); MCHC 31.9 g/dL (31.0-37.0); Mean Platelet Volume 8.7; Monocytes % (A) 7 %; Neutrophils # (A) 11.6 k/uL (1.3-7.7); Neutrophils % (A) 84 %; RBC 3.81 m/uL (3.80-5.40); RDW 14.1 % (11.5-15.5); WBC 13.8 k/uL (3.8-10.6); WBC (Perox) 14.55
[2016-09-09 05:41] LABS: MCV 90.5 fL (80.0-100.0)
[2016-09-09 06:17] LABS: ALT 47 U/L (9-52); AST 86 U/L (14-36); Alkaline Phosphatase 78 U/L (38-126); Anion Gap 12 mmol/L; Blood Urea Nitrogen 33 mg/dL (7-17); Calcium 7.7 mg/dL (8.4-10.2); Carbon Dioxide 25 mmol/L (22-30); Chloride 113 mmol/L (98-107); Glucose 157 mg/dL (74-99); Magnesium 1.8 mg/dL (1.6-2.3); Non-African American GFR(MDRD) 51 (>60 ml/min/1.73 sqM); Phosphorous 2.4 mg/dL (2.5-4.5); Potassium 4.2 mmol/L (3.5-5.1); Sodium 150 mmol/L (137-145); Total Bilirubin 0.3 mg/dL (0.2-1.3); Total Protein 5.9 g/dL (6.3-8.2)
[2016-09-09 07:01] LABS: Glucose,Whole Blood 178 mg/dL (75-99)
[2016-09-09] MEDS ORDERED: Magnesium Replacement Protocol 1 EACH MISC MISCELLANE PRN (07:55)
[2016-09-09 08:01] LABS: Glucose,Whole Blood 178 mg/dL (75-99)
[2016-09-09] MEDS ORDERED: ASPIRIN 300 MG SUPP RECTAL SCH (09:00)
[2016-09-09] MEDS ORDERED: VANCOMYCIN 2,000 MG in SODIUM CHLORIDE 0.9% 500 ML IVPB SCH (09:00)
[2016-09-09] MEDS: IPRATROPIUM-ALBUTEROL 3 ML NEB INHALATION SCH ×4 (09:05→19:55)
[2016-09-09 09:06] LABS: Glucose,Whole Blood 233 mg/dL (75-99)
[2016-09-09] MEDS: ENOXAPARIN 30 MG/0.3 ML SYRINGE SQ SCH (09:35)
[2016-09-09] MEDS: MAGNESIUM SULFATE-D5W PMX 1 GM in DEXTROSE/WATER 1 100ML.BAG IVPB SCH ×2 (09:37→11:09)
[2016-09-09] MEDS: PANTOPRAZOLE 40 MG/10 ML VIAL IV SCH (09:38)
--- NOTE | 2016-09-09 09:56 | HP ---
DATE OF ADMISSION: CHIEF COMPLAINT: Altered mental status. HISTORY OF PRESENT ILLNESS: Ms. Freeman is a 61-year-old female with known history of cerebrovascular accident with left-sided paralysis, hypertension, coronary artery disease and obstructive sleep apnea on CPAP, chronic hydronephrosis of the kidneys and chronic Humphrey catheter placement was initially seen at [facility] with altered mental status and was found have abnormal urinalysis and urinary tract infection and possible sepsis. The patient was subsequently transferred to [facility]. Patient was found to have elevated blood sugar and elevated CPK level. NT proBNP elevated to 2800. Patient also found to have elevated lactic acidosis of 2.8. In the chest x-ray there was evidence of pulmonary edema when she came to the hospital. Patient otherwise was started on broad-spectrum antibiotics for urinary tract infection and sepsis. The patient currently is transferred to MICU. Pulmonary is following this patient. Complete review of systems could not be obtained from the patient due to altered mental status. PAST MEDICAL HISTORY: Hypertension, hyperlipidemia, morbid obesity, obstructive sleep apnea on CPAP, history of coronary artery disease, olivopontocerebellar degeneration, diabetes mellitus type 2, chronic constipation, chronic urinary incontinence, and chronic Humphrey catheter, chronic hydronephrosis, obstructive sleep apnea, bronchial asthma, history of Clostridium difficile infection. PAST SURGICAL HISTORY: Bowel resection, tubal ligation, carpal tunnel release surgery, Humphrey catheter placement. PSYCHOSOCIAL HISTORY: Depression. SOCIAL HISTORY: Patient never a smoker. Denied any alcohol. Denied any drugs or IVDU. FAMILY HISTORY: Father had cancer, from pancreatic cancer. Mother had congestive heart failure and diabetes and dialysis. of CHF. HOME MEDICATIONS: Aspirin, atorvastatin, baclofen, Pulmicort, glimepiride, Humalog, Tofranil, insulin, lactulose, neomycin, [place] 3 fatty acids, Paxil, Glucophage, Ventolin, Colace, Drisdol, Ditropan, Vitamin D3, Humalog, probiotic, multivitamins and Maxzide. ALLERGIES: No known drug allergies. PHYSICAL EXAMINATION: A 61-year-old female, lying in the bed, awake, alert, appears to be in no apparent distress at this time. VITALS: Blood pressure is 90/61, pulse is 108, respirations 20, temperature afebrile, pulse ox 99% on 6-L nasal cannula. HEENT: Atraumatic, normocephalic. Neck is supple. No JVD. No thyromegaly. CVS: S1, S2 heard. No murmurs, no gallop. LUNGS: Bilateral diminished air entry. No crackles. No wheezing. Nonlabored breathing. ABDOMEN: Soft, nontender. Bowel sounds are present. CLUTCH MECHANIC: Awake, alert, left-sided paralysis. EXTREMITIES: Bilateral lower extremity trace edema. Pulses palpable bilaterally. N clubbing or cyanosis. PSYCHIATRIC: Could not be assessed completely. LABORATORY DATA: WBC 10.0, hemoglobin 13.3, platelets 142, INR 1.1. Sodium 139, potassium 5.7, chloride 103, bicarb is 19. BUN 49, creatinine 1.40, lactic acid 2.7. CPK 1380, albumin 3.6. C. diff toxin negative. CT scan head: cerebral atrophy, encephalomalacia involving the brain stem. No change compared to old exam. Chest x-ray: Coarse lung markings are the same or increased compared to yesterday and probably related to some fibrosis. IMPRESSION: 1. Altered mental status secondary to metabolic encephalopathy secondary to infection. 2. Sepsis secondary to positive urinary tract infection. 3. Lactic acidosis. 4. Hypernatremia with volume depletion. 5. History of cerebrovascular accident with left-sided paralysis. 6. Hyperglycemia with uncontrolled diabetes mellitus. HbA1cv 7.7. 7. Morbid obesity. Body mass index of 51.5. 8. History of multiple urinary tract infections and chronic hydronephrosis and chronic Humphrey catheter placement. 9. History of olivopontocerebellar degeneration. 10. Type 2 diabetes mellitus. 11. Chronic weakness. 12. History of bronchial asthma. 13. History of coronary artery disease. 14. Hypertension. DISCUSSION AND PLAN: A 61-year-old female who was admitted to the hospital with sepsis and lactic acidosis with positive urinary tract infection and chronic ( ) in a patient with chronic indwelling catheter. Urine culture was sent. Patient will be continued on broad-spectrum antibiotics in the form of ceftazidime and vancomycin. ID has been consulted. Will continue with GI and DVT prophylaxis. Patient was given 2 liters of fluid boluses yesterday. Continue current management. Prognosis is guarded. Further recommendations based on clinical course. Neurology is following the patient as well.
[2016-09-09 10:14] LABS: Glucose,Whole Blood 226 mg/dL (75-99)
[2016-09-09] MEDS: ASPIRIN 325 MG TAB PO SCH (10:16)
[2016-09-09] MEDS: NOREPINEPHRINE 4 MG in SODIUM CHLORIDE 0.9% 250 ML IV SCH (10:16)
--- NOTE | 2016-09-09 10:40 | XR ---
EXAMINATION TYPE: XR chest 1V portable DATE OF EXAM: 09/09/2016 10:08 AM Comparison: 09/08/2016 Clinical History: 61-year-old female CHF Findings: Arteries upper limits of normal in size. Aorta within normal limits. Diffuse interstitial prominence and prominence to the pulmonary vasculature persists. No malachi consolidation or significant pleural e ffusion seen. Impression: In the correct clinical setting, findings suggest stable mild CHF.
[2016-09-09 11:11] LABS: Glucose,Whole Blood 327 mg/dL (75-99)
[2016-09-09 12:50] LABS: Glucose,Whole Blood 353 mg/dL (75-99)
[2016-09-09] MEDS: DEXTROSE 5%-0.45% NACL 1,000 ML IV SCH ×2 (12:50→17:12)
[2016-09-09 14:29] LABS: Glucose,Whole Blood 340 mg/dL (75-99)
--- NOTE | 2016-09-09 14:38 | P.PN ---
Subjective Principal diagnosis: Acute sepsis secondary to urinary tract infection his is a 61-year-old white female with history of left-sided paralysis, diabetes , hypertension, morbid obesity, olivopontine and cerebellar degeneration, chronic constipation, chronic Humphrey catheter placement, medical debility and profound weakness, patient usually uses a motorized scooter, history of obstructive sleep apnea syndrome, and chronic hydronephrosis of the kidneys. History of coronary artery disease, patient was initially seen at [place] emergency room with altered mental status, and abnormal urinalysis suggestive of urinary tract infection. Patient also had some other labs pointing to possible sepsis. Hence the patient was brought in to [facility], and she was admitted to the intensive care unit. The patient herself is a very poor historian. But apparently upon admission the patient was noted to be hypotensive, she required fluid boluses, and now she is on a small dose of norepinephrine. Patient was also noted to have a bit of leukocytosis, WBC count was 12.3. ABG on 36% FiO2 showed a pO2 of 62 pCO2 of 29 and pH of 7.46. Her electrolytes showed anion gap metabolic acidosis of 18, BUN was 48, creatinine was 1.40, and her blood sugar on admission was 415. Plasma lactic acid was 2.8, CPK was also elevated at 1380 proBNP level was a bit elevated almost 2800. Initially there was a bit of reluctance by the ER physician to give the patient fluid boluses for hypotension, because of the concern of pulmonary edema. However after I reviewed the chest x-ray, I felt there was no evidence of pulmonary edema, and I recommended fluid boluses she received so far 2 L of fluid boluses, and I plan to give her more, in the meantime the patient does not improve I recommended starting norepinephrine and titrate to a mean arterial pressure of 65 at least. I have also recommended broad-spectrum antibiotics for her presumptive sepsis and again the most likely source is the urine. Patient does have a chronic indwelling Humphrey catheter. Patient was reevaluated again today on 09/09/2016, she seems to be doing much better, and she is becoming at least more hemodynamically stable. Patient received about 4 L of fluid boluses, and he did not require any pressors. Patient is definitely more awake today, and she seems to be quite appropriate. Labs were reviewed, she had a relatively normal CBC except for leukocytosis with WBC count of 13.8. Her electrolytes showed improvement in the anion gap metabolic acidosis, however her sodium is a bit elevated at 150. Renal profile is improving significantly. The rest of the labs are also improving, and her urine culture preliminary report is showing gram-negative bacilli, staph aureus , and group D enterococcus. Patient is being followed by infectious disease, and Dr. Foss is aware of the findings on the urine culture. He may have to escalate her antibiotics coverage to where it was on admission when it was given empirically. Granted the patient is feeling much better clinically today , and responded well to the initial treatment including broad-spectrum antibiotics, fluid boluses, and hemodynamic support. Objective - Vital Signs Vital signs: Vital Signs Temp 98 F 09/09/16 12:00 Pulse 101 H 09/09/16 14:00 Resp 14 09/09/16 14:00 BP 84/52 09/09/16 14:00 Pulse Ox 99 09/09/16 14:00 Intake & Output 09/08/16 09/09/16 09/09/16 18:59 06:59 18:59 Intake Total 3313.764 1182.069 8759 Output Total 1510 1385 1300 Balance 1803.764 233.661 403 Weight 136.078 kg 111.5 kg Intake: IV 2700 1100 700 .9ns bolus 2000 Sodium Chloride 0.9% 1, 700 1100 700 000 ml @ 100 mls/hr IV . Q10H BROOKE Rx#:[id number] Intake, IV Titration 613.764 185.946 0780 Amount ACETAMINOPHEN IV (For NPO 300 ) 1,000 mg In Empty Bag 1 bag @ 400 mls/hr IVPB Q6HR BROOKE Rx#:[id number] Dextrose 5%-0.45% NaCl 1, 1000 000 ml @ 999 mls/hr IV . Q1H1M BROOKE Rx#:[id number] Insulin Regular 100 unit 101.000 23.425 3 In Sodium Chloride 0.9% 100 ml @ Per Protocol IV .Q0M BROOKE Rx#:[id number] Norepinephrine 4 mg In 12.764 495.236 Sodium Chloride 0.9% 250 ml @ Titrate IV .Q0M BROOKE Rx#:[id number] Sodium Chloride 0.9% 1, 200 000 ml @ 100 mls/hr IV . Q10H BROOKE Rx#:[id number] Output: Urine 1510 1385 1300 Other: Voiding Method Indwelling Catheter Indwelling Catheter Indwelling Catheter - Exam Physical Exam: Revealed a 61-year-old female on nasal cannula with adequate O2 saturation. HEENT:[Neck is supple.] [No neck masses.] [No thyromegaly.] [No JVD.] Very dry mucous membranes were noted. Chest: [Diminished breath sounds at the bases no crackles or rhonchi or wheezes. ] Cardiac Exam: [Normal S1 and S2, no S3 gallop, no murmur.] Abdomen: [Soft, nontender, no megaly, no rebound, no guarding, intact colostomy bag noted.] Extremities: [No clubbing, no edema, no cyanosis.] Neurological Exam: Patient seems to be generally weak, and she has a chronic left-sided weakness. Awake, and she seems to be quite appropriate. - Labs CBC & Chem 7: 09/09/16 05:05 09/09/16 05:05 Labs: Abnormal Lab Results - Last 24 Hours (Table) 09/08/16 09/08/16 09/08/16 Range/Units 11:45 15:29 17:11 WBC (3.8-10.6) k/uL Hgb (11.4-16.0) gm/dL Neutrophils # (1.3-7.7) k/uL Sodium (137-145) mmol/L Chloride (98-107) mmol/L BUN (7-17) mg/dL Creatinine (0.52-1.04) mg/dL Glucose (74-99) mg/dL POC Glucose (mg/dL) 203 H 121 H (75-99) mg/dL Calcium (8.4-10.2) mg/dL Phosphorus (2.5-4.5) mg/dL AST (14-36) U/L Total Protein (6.3-8.2) g/dL Albumin (3.5-5.0) g/dL Triglycerides 257 H (<150) mg/dL HDL Cholesterol 36 L (40-60) mg/dL 09/08/16 09/08/16 09/08/16 Range/Units 18:09 19:35 21:24 WBC (3.8-10.6) k/uL Hgb (11.4-16.0) gm/dL Neutrophils # (1.3-7.7) k/uL Sodium (137-145) mmol/L Chloride (98-107) mmol/L BUN (7-17) mg/dL Creatinine (0.52-1.04) mg/dL Glucose (74-99) mg/dL POC Glucose (mg/dL) 124 H 171 H 184 H (75-99) mg/dL Calcium (8.4-10.2) mg/dL Phosphorus (2.5-4.5) mg/dL AST (14-36) U/L Total Protein (6.3-8.2) g/dL Albumin (3.5-5.0) g/dL Triglycerides (<150) mg/dL HDL Cholesterol (40-60) mg/dL 09/08/16 09/08/16 09/09/16 Range/Units 22:06 23:10 00:53 WBC (3.8-10.6) k/uL Hgb (11.4-16.0) gm/dL Neutrophils # (1.3-7.7) k/uL Sodium (137-145) mmol/L Chloride (98-107) mmol/L BUN (7-17) mg/dL Creatinine (0.52-1.04) mg/dL Glucose (74-99) mg/dL POC Glucose (mg/dL) 183 H 178 H 160 H (75-99) mg/dL Calcium (8.4-10.2) mg/dL Phosphorus (2.5-4.5) mg/dL AST (14-36) U/L Total Protein (6.3-8.2) g/dL Albumin (3.5-5.0) g/dL Triglycerides (<150) mg/dL HDL Cholesterol (40-60) mg/dL 09/09/16 09/09/16 09/09/16 Range/Units 02:02 04:14 04:59 WBC (3.8-10.6) k/uL Hgb (11.4-16.0) gm/dL Neutrophils # (1.3-7.7) k/uL Sodium (137-145) mmol/L Chloride (98-107) mmol/L BUN (7-17) mg/dL Creatinine (0.52-1.04) mg/dL Glucose (74-99) mg/dL POC Glucose (mg/dL) 152 H 123 H 156 H (75-99) mg/dL Calcium (8.4-10.2) mg/dL Phosphorus (2.5-4.5) mg/dL AST (14-36) U/L Total Protein (6.3-8.2) g/dL Albumin (3.5-5.0) g/dL Triglycerides (<150) mg/dL HDL Cholesterol (40-60) mg/dL 09/09/16 09/09/16 09/09/16 Range/Units 05:05 05:05 06:59 WBC 13.8 H (3.8-10.6) k/uL Hgb 11.0 L (11.4-16.0) gm/dL Neutrophils # 11.6 H (1.3-7.7) k/uL Sodium 150 H (137-145) mmol/L Chloride 113 H (98-107) mmol/L BUN 33 H (7-17) mg/dL Creatinine 1.10 H (0.52-1.04) mg/dL Glucose 157 H (74-99) mg/dL POC Glucose (mg/dL) 178 H (75-99) mg/dL Calcium 7.7 L (8.4-10.2) mg/dL Phosphorus 2.4 L (2.5-4.5) mg/dL AST 86 H (14-36) U/L Total Protein 5.9 L (6.3-8.2) g/dL Albumin 2.9 L (3.5-5.0) g/dL Triglycerides (<150) mg/dL HDL Cholesterol (40-60) mg/dL 09/09/16 09/09/16 09/09/16 Range/Units 07:58 09:04 10:11 WBC (3.8-10.6) k/uL Hgb (11.4-16.0) gm/dL Neutrophils # (1.3-7.7) k/uL Sodium (137-145) mmol/L Chloride (98-107) mmol/L BUN (7-17) mg/dL Creatinine (0.52-1.04) mg/dL Glucose (74-99) mg/dL POC Glucose (mg/dL) 178 H 233 H 226 H (75-99) mg/dL Calcium (8.4-10.2) mg/dL Phosphorus (2.5-4.5) mg/dL AST (14-36) U/L Total Protein (6.3-8.2) g/dL Albumin (3.5-5.0) g/dL Triglycerides (<150) mg/dL HDL Cholesterol (40-60) mg/dL 09/09/16 09/09/16 09/09/16 Range/Units 11:09 12:47 14:15 WBC (3.8-10.6) k/uL Hgb (11.4-16.0) gm/dL Neutrophils # (1.3-7.7) k/uL Sodium (137-145) mmol/L Chloride (98-107) mmol/L BUN (7-17) mg/dL Creatinine (0.52-1.04) mg/dL Glucose (74-99) mg/dL POC Glucose (mg/dL) 327 H 353 H 340 H (75-99) mg/dL Calcium (8.4-10.2) mg/dL Phosphorus (2.5-4.5) mg/dL AST (14-36) U/L Total Protein (6.3-8.2) g/dL Albumin (3.5-5.0) g/dL Triglycerides (<150) mg/dL HDL Cholesterol (40-60) mg/dL Microbiology - Last 24 Hours (Table) 09/08/16 00:50 Blood Culture - Preliminary Blood No Growth after 24 hours 09/08/16 00:35 Blood Culture - Preliminary Blood No Growth after 24 hours Assessment and Plan Plan: Impression: 1 suspect acute sepsis secondary to acute urinary tract infection secondary to chronic indwelling Humphrey catheter. Multiple comorbidities including history of oligo pontine and cerebellar degeneration, morbid obesity, type 2 diabetes, chronic weakness, history of bronchial asthma, history of coronary artery disease, and history of essential hypertension. Chronic renal failure and hydronephrosis. Recommendation: Patient will be kept in the ICU today, she will keep IV fluid at the same rate for now, no further fluid boluses , we'll follow the sepsis protocol, in the meantime she is on ceftriaxone, and vancomycin. Infectious disease is following the patient and aware of the preliminary report on the urine cultures The antibiotics are given empirically. We'll continue bronchodilators, continue insulin drip, as per protocol,. Continue GI and DVT prophylaxis. Prognosis is definitely guarded, will continue to follow closely. Keep in the ICU today. Time with Patient: Greater than 30
[2016-09-09 15:19] LABS: Glucose,Whole Blood 211 mg/dL (75-99)
[2016-09-09 16:01] VITALS: BMI 42.2
[2016-09-09 16:07] LABS: Glucose,Whole Blood 191 mg/dL (75-99)
[2016-09-09 16:55] LABS: Glucose,Whole Blood 180 mg/dL (75-99)
[2016-09-09 16:55] LABS: Cholesterol 150 mg/dL (<200); HDL Cholesterol 37 mg/dL (40-60); Triglycerides 194 mg/dL (<150)
[2016-09-09] MEDS: INSULIN LISPRO (humaLOG) 300 UNIT/3 ML VIAL SQ SCH ×3 (17:47→21:14)
[2016-09-09 20:59] LABS: Glucose,Whole Blood 227 mg/dL (75-99)
--- NOTE | 2016-09-09 21:01 | P.PN ---
Subjective Principal diagnosis: toxic metabolic encephalopathy Patient is a 61-year-old female is being followed by neurology for history of left-sided paralysis. She is transferred from [facility] to [facility] emergency room on 09/07/16. At that time she had complaints of altered mental status. She is being treated for urinary tract infection. She was transferred for sepsis and is currently in the ICU. Approximately 48 hours ago patient had an episode of acute confusion, nonreactive pupils and generally unresponsive. She remained somewhat confused but did improve. She does have a complex medical history. Her status at admission was admitting for pulmonary edema and urinary tract infection and tachycardia. Initial CT of the brain in the ER showed cerebral atrophy, an old brainstem infarct involving the peña. This is unchanged compared to previous study of November 10, 2015. Upon contact today, the patient was resting comfortably in the ICU. She is in no acute distress. Nursing stated that the patient has been reported to have almost returned to baseline by family. She has been switched back to oral aspirin. Prior new neurological noted deficits are almost fully resolved. Patient was alert and oriented 3. Objective - Vital Signs Vital signs: Vital Signs Temp 98.3 F 09/09/16 20:00 Pulse 95 09/09/16 20:07 Resp 18 09/09/16 20:00 BP 100/55 09/09/16 20:00 Pulse Ox 99 09/09/16 20:09 Intake & Output 09/09/16 09/09/16 09/10/16 06:59 18:59 06:59 Intake Total 2701.304 1421 200 Output Total 1385 1750 375 Balance 233.661 353 -175 Weight 111.5 kg 111.5 kg Intake: IV 1100 1100 200 Sodium Chloride 0.9% 1, 1100 1100 200 000 ml @ 100 mls/hr IV . Q10H [facility] Rx#:[id number] Intake, IV Titration 441.991 4005 Amount Dextrose 5%-0.45% NaCl 1, 1000 000 ml @ 999 mls/hr IV . Q1H1M [facility]OOKE Rx#:[id number] Insulin Regular 100 unit 23.425 3 In Sodium Chloride 0.9% 100 ml @ Per Protocol IV .Q0M [facility]OOKE Rx#:[id number] Norepinephrine 4 mg In 495.236 Sodium Chloride 0.9% 250 ml @ Titrate IV .Q0M BROOKE Rx#:[id number] Output: Urine 1385 1750 375 Other: Voiding Method Indwelling Catheter Indwelling Catheter Indwelling Catheter - Constitutional General appearance: Present: obese - EENT EENT Comment(s): Left pupil is slightly slower to react. Patient does have a history of this finding on physical exam per the patient. Eyes: Present: EOMI, PERRLA. Absent: ptosis - Neck Details: supple no masses - Respiratory Details: no increased work of breathing - Cardiovascular Details: regular rate Rhythm: regular - Gastrointestinal Gastrointestinal Comment(s): nontender, nondistended - Integumentary Integumentary: Present: normal. Absent: flushed, jaundiced, pale - Neurologic Neurologic Comment(s): Cranial nerves II through XII intact. Speech is mildly dysarthric. No facial asymmetry noted on cranial nerve testing. No seizure-like activity observed. Assessment Director strength on the right was 4 out of 5 and on the left 4 out of 5. - Musculoskeletal Musculoskeletal Comment(s): bilaterally strengths were 4 out of 5. Musculoskeletal: Present: strength equal bilaterally - Psychiatric Psychiatric: Present: A&O x's 3, appropriate affect, intact judgment & insight - Labs CBC & Chem 7: 09/09/16 05:05 09/09/16 05:05 Labs: Abnormal Lab Results - Last 24 Hours (Table) 09/08/16 09/08/16 09/08/16 Range/Units 21:24 22:06 23:10 WBC (3.8-10.6) k/uL Hgb (11.4-16.0) gm/dL Neutrophils # (1.3-7.7) k/uL Sodium (137-145) mmol/L Chloride (98-107) mmol/L BUN (7-17) mg/dL Creatinine (0.52-1.04) mg/dL Glucose (74-99) mg/dL POC Glucose (mg/dL) 184 H 183 H 178 H (75-99) mg/dL Calcium (8.4-10.2) mg/dL Phosphorus (2.5-4.5) mg/dL AST (14-36) U/L Total Protein (6.3-8.2) g/dL Albumin (3.5-5.0) g/dL Triglycerides (<150) mg/dL HDL Cholesterol (40-60) mg/dL 09/09/16 09/09/16 09/09/16 Range/Units 00:53 02:02 04:14 WBC (3.8-10.6) k/uL Hgb (11.4-16.0) gm/dL Neutrophils # (1.3-7.7) k/uL Sodium (137-145) mmol/L Chloride (98-107) mmol/L BUN (7-17) mg/dL Creatinine (0.52-1.04) mg/dL Glucose (74-99) mg/dL POC Glucose (mg/dL) 160 H 152 H 123 H (75-99) mg/dL Calcium (8.4-10.2) mg/dL Phosphorus (2.5-4.5) mg/dL AST (14-36) U/L Total Protein (6.3-8.2) g/dL Albumin (3.5-5.0) g/dL Triglycerides (<150) mg/dL HDL Cholesterol (40-60) mg/dL 09/09/16 09/09/16 09/09/16 Range/Units 04:59 05:05 05:05 WBC 13.8 H (3.8-10.6) k/uL Hgb 11.0 L (11.4-16.0) gm/dL Neutrophils # 11.6 H (1.3-7.7) k/uL Sodium 150 H (137-145) mmol/L Chloride 113 H (98-107) mmol/L BUN 33 H (7-17) mg/dL Creatinine 1.10 H (0.52-1.04) mg/dL Glucose 157 H (74-99) mg/dL POC Glucose (mg/dL) 156 H (75-99) mg/dL Calcium 7.7 L (8.4-10.2) mg/dL Phosphorus 2.4 L (2.5-4.5) mg/dL AST 86 H (14-36) U/L Total Protein 5.9 L (6.3-8.2) g/dL Albumin 2.9 L (3.5-5.0) g/dL Triglycerides (<150) mg/dL HDL Cholesterol (40-60) mg/dL 09/09/16 09/09/16 09/09/16 Range/Units 05:05 06:59 07:58 WBC (3.8-10.6) k/uL Hgb (11.4-16.0) gm/dL Neutrophils # (1.3-7.7) k/uL Sodium (137-145) mmol/L Chloride (98-107) mmol/L BUN (7-17) mg/dL Creatinine (0.52-1.04) mg/dL Glucose (74-99) mg/dL POC Glucose (mg/dL) 178 H 178 H (75-99) mg/dL Calcium (8.4-10.2) mg/dL Phosphorus (2.5-4.5) mg/dL AST (14-36) U/L Total Protein (6.3-8.2) g/dL Albumin (3.5-5.0) g/dL Triglycerides 194 H (<150) mg/dL HDL Cholesterol 37 L (40-60) mg/dL 09/09/16 09/09/16 09/09/16 Range/Units 09:04 10:11 11:09 WBC (3.8-10.6) k/uL Hgb (11.4-16.0) gm/dL Neutrophils # (1.3-7.7) k/uL Sodium (137-145) mmol/L Chloride (98-107) mmol/L BUN (7-17) mg/dL Creatinine (0.52-1.04) mg/dL Glucose (74-99) mg/dL POC Glucose (mg/dL) 233 H 226 H 327 H (75-99) mg/dL Calcium (8.4-10.2) mg/dL Phosphorus (2.5-4.5) mg/dL AST (14-36) U/L Total Protein (6.3-8.2) g/dL Albumin (3.5-5.0) g/dL Triglycerides (<150) mg/dL HDL Cholesterol (40-60) mg/dL 09/09/16 09/09/16 09/09/16 Range/Units 12:47 14:15 15:16 WBC (3.8-10.6) k/uL Hgb (11.4-16.0) gm/dL Neutrophils # (1.3-7.7) k/uL Sodium (137-145) mmol/L Chloride (98-107) mmol/L BUN (7-17) mg/dL Creatinine (0.52-1.04) mg/dL Glucose (74-99) mg/dL POC Glucose (mg/dL) 353 H 340 H 211 H (75-99) mg/dL Calcium (8.4-10.2) mg/dL Phosphorus (2.5-4.5) mg/dL AST (14-36) U/L Total Protein (6.3-8.2) g/dL Albumin (3.5-5.0) g/dL Triglycerides (<150) mg/dL HDL Cholesterol (40-60) mg/dL 09/09/16 09/09/16 Range/Units 16:04 16:52 WBC (3.8-10.6) k/uL Hgb (11.4-16.0) gm/dL Neutrophils # (1.3-7.7) k/uL Sodium (137-145) mmol/L Chloride (98-107) mmol/L BUN (7-17) mg/dL Creatinine (0.52-1.04) mg/dL Glucose (74-99) mg/dL POC Glucose (mg/dL) 191 H 180 H (75-99) mg/dL Calcium (8.4-10.2) mg/dL Phosphorus (2.5-4.5) mg/dL AST (14-36) U/L Total Protein (6.3-8.2) g/dL Albumin (3.5-5.0) g/dL Triglycerides (<150) mg/dL HDL Cholesterol (40-60) mg/dL Microbiology - Last 24 Hours (Table) 09/08/16 00:50 Blood Culture - Preliminary Blood No Growth after 24 hours 09/08/16 00:35 Blood Culture - Preliminary Blood No Growth after 24 hours Patient's hemoglobin is noted to be low, WBCs are observed to be elevated. Patient is also noted to be hypernatremic, elevated BUN/creatinine. Glucose is also elevated. 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 Patient's EEG, MRI of the brain are still pending. Her carotid Doppler noted only 25% stenosis at this time. Patient was started on oral 325 mg aspirin earlier today as well. Although her MRI and EEG are still pending, from a neurological standpoint the patient is cleared to be transferred to a neurological or telemetry monitored floor. Currently the patient is has almost returned to baseline with no noted remaining new deficits. Neurology will continue to follow provide further updates as warranted once results of further testing of then received. Please feel free to contact our office if there are any questions or any concerns. I discussed the patient's pertinent medical information with Dr. Pagan. He agrees with the plan of care as implemented. Status: Acute
[2016-09-09] MEDS: INSULIN DETEMIR 100 UNIT/ML 10 ML VIAL SQ SCH (21:13)
[2016-09-10 05:56] LABS: ALT 53 U/L (9-52); AST 61 U/L (14-36); Alkaline Phosphatase 72 U/L (38-126); Anion Gap 12 mmol/L; Blood Urea Nitrogen 14 mg/dL (7-17); Calcium 7.8 mg/dL (8.4-10.2); Carbon Dioxide 23 mmol/L (22-30); Chloride 113 mmol/L (98-107); Glucose 195 mg/dL (74-99); Magnesium 2.3 mg/dL (1.6-2.3); Non-African American GFR(MDRD) >60 (>60 ml/min/1.73 sqM); Phosphorous 2.3 mg/dL (2.5-4.5); Potassium 4.4 mmol/L (3.5-5.1); Sodium 148 mmol/L (137-145); Total Bilirubin 0.3 mg/dL (0.2-1.3); Total Protein 5.7 g/dL (6.3-8.2)
[2016-09-10 06:35] LABS: Basophils % (A) 0 %; CHCM 29.3; Eosinophils # (A) 0.1 k/uL (0-0.7); Eosinophils % (A) 2 %; HCT 31.1 % (34.0-46.0); HDW 2.48; HGB 9.6 gm/dL (11.4-16.0); Hypochromasia Marked; Luc % (Auto) 1; Lymphocytes # (A) 0.8 k/uL (1.0-4.8); Lymphocytes % (A) 11 %; MCH 29.5 pg (25.0-35.0); MCHC 30.7 g/dL (31.0-37.0); Monocytes # (A) 0.4 k/uL (0-1.0); Monocytes % (A) 5 %; Neutrophils # (A) 5.8 k/uL (1.3-7.7); Neutrophils % (A) 81 %; RBC 3.24 m/uL (3.80-5.40); RDW 14.2 % (11.5-15.5); WBC 7.1 k/uL (3.8-10.6); WBC (Perox) 7.16
[2016-09-10 06:52] LABS: MCV 95.9 fL (80.0-100.0)
[2016-09-10] MEDS: IPRATROPIUM-ALBUTEROL 3 ML NEB INHALATION SCH ×4 (07:22→18:52)
[2016-09-10 07:57] LABS: Glucose,Whole Blood 180 mg/dL (75-99)
--- NOTE | 2016-09-10 08:24 | PN ---
Mrs. Freeman is a 61-year-old female with history of ( ) cerebellar degeneration, history of diabetes, hypertension, morbid obesity, who presented with sepsis and urinary tract infection. She is feeling better today. She has received quite a bit of IV fluid and her blood pressure is stable. She is off her Levophed. She is in sinus mechanism. She has no episode of tachy or bradyarrhythmia. Hemodynamically, she is stable and her urine output has been stable as well. She continues to be at this time on the IV fluid, antibiotics, insulin subcu, Lovenox, aspirin. PHYSICAL EXAMINATION: Blood pressure running in the 90s with the heart rate in 90s. LUNGS: No wheezes or rales. HEART: Regular rate and rhythm. S1, S2, no S3. No rub appreciated. ABDOMEN: Soft, obese. Colostomy bag noted. Extremities with left-sided weakness, but no significant edema. Lab data revealed BUN and creatinine of 33 and 1.1. Potassium 4.2. Her sodium is up to 150, similar to what it was yesterday. Hemoglobin of 11. IMPRESSION: 1. Urosepsis with hypotension, improving. 2. Olivopontocerebellar atrophy. 3. History of sarcoidosis. 4. Renal failure. 5. Diabetes. 6. Hyperlipidemia. RECOMMENDATIONS: From the cardiac standpoint, she is stable. Will obtain echocardiogram tomorrow to evaluate left ventricular systolic function. Continue on the antibiotics as initiated by Dr. Foss and Dr. Gilbert. Continue supportive care. I do not see any evidence of active cardiac issue at this time.
[2016-09-10] MEDS: INSULIN LISPRO (humaLOG) 300 UNIT/3 ML VIAL SQ SCH ×7 (08:58→20:58)
[2016-09-10] MEDS: SODIUM CHLORIDE 0.9% 1,000 ML IV SCH ×3 (08:59→20:52)
[2016-09-10] MEDS: ASPIRIN 325 MG TAB PO SCH (08:59)
[2016-09-10] MEDS: PANTOPRAZOLE 40 MG TABLET PO SCH (09:00)
[2016-09-10] MEDS: ENOXAPARIN 40 MG/0.4 ML SYRINGE SQ SCH (09:00)
--- NOTE | 2016-09-10 09:11 | XR ---
EXAMINATION TYPE: XR chest 1V portable DATE OF EXAM: 09/10/2016 6:39 AM COMPARISON: NONE INDICATION: Short of breath TECHNIQUE: Single frontal view of the chest is obtained. FINDINGS: The heart size is normal. The pulmonary vasculature is at the upper limits of normal for size. The lungs are clear. IMPRESSION: 1. No acute pulmonary process.
--- NOTE | 2016-09-10 10:19 | ECHOF ---
Referral Reason: MEASUREMENTS -------- HEIGHT: 162.6 cm WEIGHT: 115.2 kg BP: 97/57 IVSd: 1.2 cm (0.6 - 1.1) LVIDd: 3.4 cm (3.9 - 5.3) LVPWd: 1.2 cm (0.6 - 1.1) IVSs: 1.6 cm LVIDs: 1.6 cm LVPWs: 1.5 cm Ao Diam: 2.8 cm (2.0 - 3.7) AV Cusp: 1.6 cm (1.5 - 2.6) LA Diam: 2.6 cm (2.7 - 3.8) MV E Michael: 0.70 m/s MV DecT: 185 ms MV A Michael: 0.82 m/s MV E/A Ratio: 0.85 AV maxP.88 mmHg AV meanP.40 mmHg RAP: 5.00 mmHg RVSP: 11.97 mmHg FINDINGS -------- Sinus rhythm. This was a technically difficult study with suboptimal views. There is mild concentric left ventricular hypertrophy. Overall left ventricular systolic function is normal with, an EF between 55 - 60 %. The right ventricle is normal in size and function. The left atrium is normal in size. The right atrium is normal in size. 1.5mg of Definity was utilized for enhancement of images There is [id number]-ninoik aortic stenosis present. Peak/mean gradient across the Aortic Valve is 55.88mmHg / 27.40mmHg. The mitral valve leaflets are mildly thickened. Mild mitral regurgitation is present. Mild tricuspid regurgitation present. The right ventricular systolic pressure, as measured by Doppler, is 11.97mmHg. The pulmonic valve was not well visualized. The pericardium is normal. CONCLUSIONS -------- 1. Sinus rhythm. 2. Peak/mean gradient across the Aortic Valve is 55.88mmHg / 27.40mmHg. 3. The mitral valve leaflets are mildly thickened. 4. Mild mitral regurgitation is present. 5. Mild tricuspid regurgitation present. 6. The right ventricular systolic pressure, as measured by Doppler, is 11.97mmHg. 7. The pulmonic valve was not well visualized. 8. The pericardium is normal. 9. This was a technically difficult study with suboptimal views. 10. There is mild concentric left ventricular hypertrophy. 11. Overall left ventricular systolic function is normal with, an EF between 55 - 60 %. 12. The right ventricle is normal in size and function. 13. The left atrium is normal in size. 14. The right atrium is normal in size. 15. 1.5mg of Definity was utilized for enhancement of images 16. There is [id number] aortic stenosis present. [employer]: Raeann Stahl RDCS
--- NOTE | 2016-09-10 10:33 | PN ---
DATE OF SERVICE: 09/09/2016 INTERVAL HISTORY: Ms. Freeman is a 61 -year-old female with known history of cerebrovascular accident with left-sided paralysis, hypertension, coronary artery disease and obstructive sleep apnea and chronic indwelling Humphrey catheter due to urinary retention and chronic hydronephrosis of the kidneys was admitted to the hospital from [facility] with sepsis and urinary tract infection. Currently the patient is off ( ) and more awake and oriented. The patient was given almost 4 liters of fluid boluses while in the hospital with improvement in lactic acidosis. Otherwise urine culture showed polymicrobial ( ) gram negative bacilli, Staph aureus and group B enterococcus. Currently, ID has been consulted for antibiotic recommendations. Pulmonary is following this patient. REVIEW OF SYSTEMS: CONSTITUTIONAL: No fever. No chills. RESPIRATORY: No cough or sputum production. CARDIOVASCULAR: No chest pain. No short of breath. ABDOMEN: No nausea, vomiting or abdominal pain. GENITOURINARY: Negative. ENDOCRINE: Negative. PSYCHIATRY: Negative. SKIN: Negative. All other 14 point review of systems negative except as above. Current medications include: 1. Tylenol. 2. Duoneb. 3. Albuterol. 4. Ipratropium. 5. Aspirin. 6. Ceftriaxone. 7. Lovenox. 8. Levemir. 9. Narcan. 10. Protonix. 11. Normal saline at 100 mL per hour. PHYSICAL EXAMINATION: 61 -year-old female lying in bed comfortably. Awake, alert, oriented, x3. Appears to be in no apparent distress. VITALS: Blood pressure is 100/55, pulse is 94, respiratory rate 18, temperature afebrile, pulse ox 98% on 3 L nasal cannula. HEENT: Atraumatic, normocephalic. NECK: The neck is supple. No JVD. CVS: S1, S2 heard. No murmurs. No gallops. LUNGS: Bilateral air entry diminished basally. Minimal crackles at the bases. Nonlabored breathing. No wheezing. ABDOMEN: Soft, obese, bowel sounds present. CENTRAL NERVOUS SYSTEM: Alert and oriented x3. No focal deficits. Patient does have left sided paralysis. Extremities: Trace edema. Pulses are palpable bilaterally. No clubbing or cyanosis. PSYCHIATRY: Cooperative. Patient does have chronic indwelling Humphrey catheter which is intact. LABORATORY DATA: WBC is 13.8, hemoglobin 11.0, platelets 233, sodium 142, potassium 4.2, chloride 113, bicarbonate 25. BUN 33, creatinine 1.1, calcium 7.7, phosphorus 2.4, magnesium 1.8, triglycerides is 194, LDL 74. Chest x-ray ( ) clinical setting, findings stable mild congestive heart failure. ASSESSMENT: 1. Altered mental status secondary to metabolic encephalopathy, improved now, secondary to infection. 2. Sepsis secondary to urinary tract infection. Urine culture growing gram-negative bacilli, Staphylococcus and group D enterococcus. 3. Hyperlipidemia secondary to volume depletion. 4. Lactic acidosis improved. 5. History of cerebrovascular accident with left side paralysis. 6. Uncontrolled diabetes mellitus, ( ). 7. Morbid obesity with body mass index of 51.5. 8. History of multiple urinary tract infections and chronic hydronephrosis and chronic Humphrey catheter placement for urinary retention. 9. History of olivopontocerebellar degeneration. 10. Chronic weakness. 11. History of bronchial asthma. 12. History of coronary artery disease. 13. Hypertension. DISCUSSION AND PLAN: The patient was admitted to the hospital with severe sepsis secondary to urinary tract infection, will continue with IV fluids. Patient is off of pressors, continue with antibiotics as per ID recommendations and follow-up closely. Patient is tolerating p.o. diet now. Repeat labs in the a.m. and continue with deep venous thrombosis prophylaxis. Further recommendations based on the clinical course.
[2016-09-10 11:26] LABS: Glucose,Whole Blood 232 mg/dL (75-99)
--- NOTE | 2016-09-10 11:43 | P.PN ---
Subjective This is a very pleasant 61-year-old female patient who was admitted on 2015 with acute sepsis secondary to urinary tract infection. She has a history of a left-sided paralysis, diabetes mellitus, hypertension, morbid obesity, a little pontine and cerebellar degeneration, chronic constipation, chronic Humphrey catheter placement, obstructive sleep apnea, ileostomy. He was initially seen by Dr. Gilbert here in the intensive care unit. Her chest x-ray did show significant no evidence of pulmonary edema or pneumonia. She did receive multiple fluid boluses for hypotension and did require norepinephrine support for her blood pressures. Today 09/10/2016 she is seen again in follow-up. She is awake and alert in no acute distress. She has been off norepinephrine since approximately 8:00 this morning. She is maintaining mean arterial pressures greater than 65. Her chest x-ray today continues to show no acute pulmonary process. Her echocardiogram does not reveal any impaired left ventricular systolic function. There is moderate to severe aortic stenosis present. The gradient 55.8 mmHg. She is making adequate urine output. Objective - Vital Signs Vital signs: Vital Signs Temp 98.6 F 09/10/16 08:00 Pulse 98 09/10/16 11:00 Resp 19 09/10/16 11:00 BP 91/48 09/10/16 11:00 Pulse Ox 99 09/10/16 10:00 Intake & Output 09/09/16 09/10/16 09/10/16 18:59 06:59 18:59 Intake Total 2103 1200 1032.974 Output Total 1750 2220 1000 Balance 353 -1020 32.974 Weight 111.5 kg 115.3 kg 115.3 kg Intake: IV 1100 1200 500 Sodium Chloride 0.9% 1, 1100 1200 500 000 ml @ 100 mls/hr IV . Q10H BROOKE Rx#:[id number] Intake, IV Titration 1003 172.974 Amount Dextrose 5%-0.45% NaCl 1, 1000 000 ml @ 999 mls/hr IV . Q1H1M BROOKE Rx#:[id number] Insulin Regular 100 unit 3 In Sodium Chloride 0.9% 100 ml @ Per Protocol IV .Q0M BROOKE Rx#:[id number] Norepinephrine 4 mg In 172.974 Sodium Chloride 0.9% 250 ml @ Titrate IV .Q0M BROOKE Rx#:[id number] Oral 360 Output: Urine 1750 2220 1000 Other: Voiding Method Indwelling Catheter Indwelling Catheter Indwelling Catheter - Exam GENERAL EXAM: Alert, comfortable in no apparent distress. HEAD: Normocephalic. EYES: Normal reaction of pupils, equal size. NOSE: Clear with pink turbinates. THROAT: No erythema or exudates. NECK: No masses, no JVD. CHEST: No chest wall deformity. LUNGS: Equal air entry with no crackles, wheeze, rhonchi or dullness. CVS: S1 and S2 normal with an audible murmur, regular rhythm. ABDOMEN: No hepatosplenomegaly, normal bowel sounds, no guarding or rigidity. Ileostomy is functioning. Extremities: There is trace peripheral edema. No clubbing, no cyanosis. Peripheral pulses are intact. - Labs CBC & Chem 7: 09/10/16 04:53 09/10/16 04:53 Labs: Abnormal Lab Results - Last 24 Hours (Table) 09/09/16 09/09/16 09/09/16 Range/Units 05:05 12:47 14:15 RBC (3.80-5.40) m/uL Hgb (11.4-16.0) gm/dL Hct (34.0-46.0) % MCHC (31.0-37.0) g/dL Lymphocytes # (1.0-4.8) k/uL Sodium (137-145) mmol/L Chloride (98-107) mmol/L Glucose (74-99) mg/dL POC Glucose (mg/dL) 353 H 340 H (75-99) mg/dL Calcium (8.4-10.2) mg/dL Phosphorus (2.5-4.5) mg/dL AST (14-36) U/L ALT (9-52) U/L Total Protein (6.3-8.2) g/dL Albumin (3.5-5.0) g/dL Triglycerides 194 H (<150) mg/dL HDL Cholesterol 37 L (40-60) mg/dL 09/09/16 09/09/16 09/09/16 Range/Units 15:16 16:04 16:52 RBC (3.80-5.40) m/uL Hgb (11.4-16.0) gm/dL Hct (34.0-46.0) % MCHC (31.0-37.0) g/dL Lymphocytes # (1.0-4.8) k/uL Sodium (137-145) mmol/L Chloride (98-107) mmol/L Glucose (74-99) mg/dL POC Glucose (mg/dL) 211 H 191 H 180 H (75-99) mg/dL Calcium (8.4-10.2) mg/dL Phosphorus (2.5-4.5) mg/dL AST (14-36) U/L ALT (9-52) U/L Total Protein (6.3-8.2) g/dL Albumin (3.5-5.0) g/dL Triglycerides (<150) mg/dL HDL Cholesterol (40-60) mg/dL 09/09/16 09/10/16 09/10/16 Range/Units 20:58 04:53 04:53 RBC 3.24 L (3.80-5.40) m/uL Hgb 9.6 L (11.4-16.0) gm/dL Hct 31.1 L (34.0-46.0) % MCHC 30.7 L (31.0-37.0) g/dL Lymphocytes # 0.8 L (1.0-4.8) k/uL Sodium 148 H (137-145) mmol/L Chloride 113 H (98-107) mmol/L Glucose 195 H (74-99) mg/dL POC Glucose (mg/dL) 227 H (75-99) mg/dL Calcium 7.8 L (8.4-10.2) mg/dL Phosphorus 2.3 L (2.5-4.5) mg/dL AST 61 H (14-36) U/L ALT 53 H (9-52) U/L Total Protein 5.7 L (6.3-8.2) g/dL Albumin 2.8 L (3.5-5.0) g/dL Triglycerides (<150) mg/dL HDL Cholesterol (40-60) mg/dL 09/10/16 09/10/16 Range/Units 07:54 11:24 RBC (3.80-5.40) m/uL Hgb (11.4-16.0) gm/dL Hct (34.0-46.0) % MCHC (31.0-37.0) g/dL Lymphocytes # (1.0-4.8) k/uL Sodium (137-145) mmol/L Chloride (98-107) mmol/L Glucose (74-99) mg/dL POC Glucose (mg/dL) 180 H 232 H (75-99) mg/dL Calcium (8.4-10.2) mg/dL Phosphorus (2.5-4.5) mg/dL AST (14-36) U/L ALT (9-52) U/L Total Protein (6.3-8.2) g/dL Albumin (3.5-5.0) g/dL Triglycerides (<150) mg/dL HDL Cholesterol (40-60) mg/dL Microbiology - Last 24 Hours (Table) 09/08/16 00:50 Blood Culture - Preliminary Blood No Growth after 48 hours 09/08/16 00:35 Blood Culture - Preliminary Blood No Growth after 48 hours Assessment and Plan Plan: Impression: #1 Acute sepsis secondary to acute urinary tract infection secondary to chronic indwelling Humphrey catheter. #2 History of illegal pontine and cerebellar degeneration. #3 Morbid obesity. #4 Diabetes mellitus, type II. #5 Chronic weakness. #6 History of chronic bronchial asthma. #7 History of coronary artery disease. #8 Hypertension. #9 Chronic renal failure and hydronephrosis. Plan: The patient was seen and evaluated by Dr. Mcginnis. Her chest x-ray and labs were reviewed. She has been tolerating being off the norepinephrine for several hours this morning. We'll continue to need to monitor her here in the ICU until later today. She may be able to transfer to regular medical floor with remote telemetry. In the interim she'll continue on ceftriaxone and vancomycin. Infectious disease is on the case as well.
[2016-09-10 17:00] LABS: Glucose,Whole Blood 138 mg/dL (75-99)
--- NOTE | 2016-09-10 19:08 | P.PN ---
Subjective Principal diagnosis: UTI and sepsis This patient is admitted to the hospital with evidence of urinary tract infection and also sepsis. Patient was hypotensive. Patient is on Levophed. Patient seemed to be relatively stable at this time. Echocardiogram showed evidence of moderate to severe aortic stenosis. However her images are suboptimal and there maybe some or estimation of the gradient. LV function appears to be preserved. This study was done with contrast. Overall patient's clinical status show some improvement. There is possibility that she could be moved out of ICU later today Objective - Vital Signs Vital signs: Vital Signs Temp 98.5 F 09/10/16 12:00 Pulse 93 09/10/16 18:53 Resp 19 09/10/16 17:00 BP 92/58 09/10/16 17:00 Pulse Ox 95 09/10/16 17:00 Intake & Output 09/10/16 09/10/16 09/11/16 06:59 18:59 06:59 Intake Total 1200 2592.974 Output Total 2219 2049 Balance -1020 542.974 Weight 115.3 kg 115.3 kg Intake: IV 1200 900 Sodium Chloride 0.9% 1, 1200 900 000 ml @ 100 mls/hr IV . Q10H BROOKE Rx#:[id number] Intake, IV Titration 372.974 Amount Norepinephrine 4 mg In 172.974 Sodium Chloride 0.9% 250 ml @ Titrate IV .Q0M BROOKE Rx#:[id number] Sodium Chloride 0.9% 1, 200 000 ml @ 100 mls/hr IV . Q10H BROOKE Rx#:[id number] Oral 1320 Output: Urine 2219 2049 Other: Voiding Method Indwelling Catheter Indwelling Catheter - Exam GENERAL EXAM: Patient is alert and oriented and doesn't appear to be in any acute distress HEENT: Normocephalic. Normal reaction of pupils, equal size, normal range of extraocular motion. No erythema or exudates in the throat. NECK: No masses, no nuchal rigidity. CHEST: No chest wall deformity. LUNGS: Equal air entry with no crackles or wheeze. HEART: S1 and S2 normal with distant heart sounds. Murmurs could not be appreciated very well ABDOMEN: No hepatosplenomegaly, normal bowel sounds, no guarding or rigidity. SKIN: No rashes CENTRAL NERVOUS SYSTEM: No focal deficits. EXTREMITIES: No cyanosis, clubbing or edema. - Labs CBC & Chem 7: 09/10/16 04:53 09/10/16 04:53 Labs: Abnormal Lab Results - Last 24 Hours (Table) 09/09/16 09/10/16 09/10/16 Range/Units 20:58 04:53 04:53 RBC 3.24 L (3.80-5.40) m/uL Hgb 9.6 L (11.4-16.0) gm/dL Hct 31.1 L (34.0-46.0) % MCHC 30.7 L (31.0-37.0) g/dL Lymphocytes # 0.8 L (1.0-4.8) k/uL Sodium 148 H (137-145) mmol/L Chloride 113 H (98-107) mmol/L Glucose 195 H (74-99) mg/dL POC Glucose (mg/dL) 227 H (75-99) mg/dL Calcium 7.8 L (8.4-10.2) mg/dL Phosphorus 2.3 L (2.5-4.5) mg/dL AST 61 H (14-36) U/L ALT 53 H (9-52) U/L Total Protein 5.7 L (6.3-8.2) g/dL Albumin 2.8 L (3.5-5.0) g/dL 09/10/16 09/10/16 09/10/16 Range/Units 07:54 11:24 16:58 RBC (3.80-5.40) m/uL Hgb (11.4-16.0) gm/dL Hct (34.0-46.0) % MCHC (31.0-37.0) g/dL Lymphocytes # (1.0-4.8) k/uL Sodium (137-145) mmol/L Chloride (98-107) mmol/L Glucose (74-99) mg/dL POC Glucose (mg/dL) 180 H 232 H 138 H (75-99) mg/dL Calcium (8.4-10.2) mg/dL Phosphorus (2.5-4.5) mg/dL AST (14-36) U/L ALT (9-52) U/L Total Protein (6.3-8.2) g/dL Albumin (3.5-5.0) g/dL Microbiology - Last 24 Hours (Table) 09/08/16 00:50 Blood Culture - Preliminary Blood No Growth after 48 hours 09/08/16 00:35 Blood Culture - Preliminary Blood No Growth after 48 hours Assessment and Plan (1) Aortic stenosis Status: Acute (2) Altered mental status Status: Acute (3) Urinary tract infection Status: Acute (4) Dyslipidemia Status: Acute (5) CHF (congestive heart failure) Status: Chronic Plan: We will continue with the hemodynamics support. When patient is clinically stable, a MURIEL examination may be considered for better assessment of aortic stenosis. Patient could be moved out of the intensive care unit later today
[2016-09-10 20:44] LABS: Glucose,Whole Blood 124 mg/dL (75-99)
[2016-09-10] MEDS: INSULIN DETEMIR 100 UNIT/ML 10 ML VIAL SQ SCH (20:55)
--- NOTE | 2016-09-10 21:29 | P.PN ---
Subjective Principal diagnosis: Toxic Metabolic Encephalopathy Patient is a 61-year-old female is being followed by neurology for history of left-sided paralysis. She is transferred from [facility] to [facility] emergency room on 09/07/16. At that time she had complaints of altered mental status. She is being treated for urinary tract infection. She was transferred for sepsis and is currently in the ICU. Patient had an episode of acute confusion, nonreactive pupils and generally unresponsive. She remained somewhat confused but did improve. She does have a complex medical history. Her status at admission was admitting for pulmonary edema and urinary tract infection and tachycardia. Initial CT of the brain in the ER showed cerebral atrophy, an old brainstem infarct involving the peña. This is unchanged compared to previous study of November 10, 2015. Upon contact today, the patient was resting comfortably in the ICU. She is in no acute distress. Nursing stated that the patient has been reported to have almost returned to baseline. Patient is on 325 mg oral aspirin. Neurological deficits related to this incident are almost fully resolved. Patient was alert and oriented 3. Objective - Vital Signs Vital signs: Vital Signs Temp 98.4 F 09/10/16 20:00 Pulse 92 09/10/16 20:00 Resp 20 09/10/16 20:00 BP 85/53 09/10/16 20:00 Pulse Ox 98 09/10/16 20:00 Intake & Output 09/10/16 09/10/16 09/11/16 06:59 18:59 06:59 Intake Total 1200 2692.974 200 Output Total 2220 2150 225 Balance -1020 542.974 -25 Weight 115.3 kg 115.3 kg Intake: IV 1200 1000 200 Sodium Chloride 0.9% 1, 1200 1000 200 000 ml @ 100 mls/hr IV . Q10H BROOKE Rx#:[id number] Intake, IV Titration 372.974 Amount Norepinephrine 4 mg In 172.974 Sodium Chloride 0.9% 250 ml @ Titrate IV .Q0M BROOKE Rx#:[id number] Sodium Chloride 0.9% 1, 200 000 ml @ 100 mls/hr IV . Q10H BROOKE Rx#:[id number] Oral 1320 Output: Urine 2220 2150 225 Other: Voiding Method Indwelling Catheter Indwelling Catheter Indwelling Catheter - Constitutional General appearance: Present: cooperative, obese. Absent: no acute distress - EENT EENT Comment(s): Left pupil has a noted past history of sluggish response. Eyes: Present: PERRLA - Neck Details: Supple no masses. - Respiratory Details: No increased work of breathing. - Cardiovascular Details: Regular rate Rhythm: regular - Gastrointestinal Gastrointestinal Comment(s): Non tender, non distended - Integumentary Integumentary: Present: normal. Absent: flushed, jaundiced, pale - Neurologic Neurologic Comment(s): Cranial nerve II through XII intact. Speech is still mildly dysarthric. No facial asymmetry noted on cranial nerve testing. No seizure-like activity observed. Front Desk Administrator strength on the right was 4+ out of 5 and on the left 4+ out of 5. Neurologic: Present: CNII-XII intact. Absent: focal deficits - Musculoskeletal Musculoskeletal Comment(s): Bilaterally strength are 4+ out of 5 - Psychiatric Psychiatric: Present: A&O x's 3, appropriate affect, intact judgment & insight ( Patient's EEG was normal. MRI of the brain is still pending.) - Labs CBC & Chem 7: 09/10/16 04:53 09/10/16 04:53 Labs: Abnormal Lab Results - Last 24 Hours (Table) 09/10/16 09/10/16 09/10/16 Range/Units 04:53 04:53 07:54 RBC 3.24 L (3.80-5.40) m/uL Hgb 9.6 L (11.4-16.0) gm/dL Hct 31.1 L (34.0-46.0) % MCHC 30.7 L (31.0-37.0) g/dL Lymphocytes # 0.8 L (1.0-4.8) k/uL Sodium 148 H (137-145) mmol/L Chloride 113 H (98-107) mmol/L Glucose 195 H (74-99) mg/dL POC Glucose (mg/dL) 180 H (75-99) mg/dL Calcium 7.8 L (8.4-10.2) mg/dL Phosphorus 2.3 L (2.5-4.5) mg/dL AST 61 H (14-36) U/L ALT 53 H (9-52) U/L Total Protein 5.7 L (6.3-8.2) g/dL Albumin 2.8 L (3.5-5.0) g/dL 09/10/16 09/10/16 09/10/16 Range/Units 11:24 16:58 20:43 RBC (3.80-5.40) m/uL Hgb (11.4-16.0) gm/dL Hct (34.0-46.0) % MCHC (31.0-37.0) g/dL Lymphocytes # (1.0-4.8) k/uL Sodium (137-145) mmol/L Chloride (98-107) mmol/L Glucose (74-99) mg/dL POC Glucose (mg/dL) 232 H 138 H 124 H (75-99) mg/dL Calcium (8.4-10.2) mg/dL Phosphorus (2.5-4.5) mg/dL AST (14-36) U/L ALT (9-52) U/L Total Protein (6.3-8.2) g/dL Albumin (3.5-5.0) g/dL Microbiology - Last 24 Hours (Table) 09/08/16 00:50 Blood Culture - Preliminary Blood No Growth after 48 hours 09/08/16 00:35 Blood Culture - Preliminary Blood No Growth after 48 hours Assessment and Plan (1) Acute confusion Status: Acute (2) Altered mental status Status: Acute (3) 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 Patient's EEG was normal Patient's MRI of the brain is still pending Carotid Doppler noted only 25% stenosis at this time Patient's hemoglobin and hematocrit have declined significantly since admission on September 07, 2016. On admission the patient's hemoglobin was 14.1, hematocrit was 44.4. It is noted currently that the last hemoglobin is 9.6 and hematocrit is 31.1. As a result I would recommend iron studies, stool occult blood and GI consult. Patient was changed to 81 mg aspirin and should continue this post discharge. If the patient's MRI of the brain has no noted abnormalities or is otherwise unchanged from any previous comparison, the patient can be cleared from a neurological standpoint. On discharge please notify the patient to follow up with our office to set up an appointment within two business days for a follow-up in our office within 14 days. If the patient's MRI of the brain is as noted above, neurology will follow only on an as-needed basis. Please feel free to contact our office with any questions or if any further assistance is needed. I discussed the patient's pertinent medical information with Dr. Pagan. He agrees with the plan of care as implemented. Status: Acute
--- NOTE | 2016-09-10 22:18 | P.PN ---
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 She's not been seen by pulmonary critical care and neurology a sitting or lying neurological difficulties. Infectious diseases consultation requested regarding her urinary infection. She was seen by the service emergency 2016 which point in time she had a somewhat resistant urinary tract infection as well as a sigmoid volvulus that required exploratory laparotomy and colostomy placement. She does have limited ability to interact with the observer. That is now much more awake alert and interactive. She is able to converse although slowly. She relates that she feels better. And was surprised at how quickly she became so ill and unable to communicate. Denies much discomfort at this time. Denies significant fever, chill or rigor. Objective - Vital Signs Vital signs: Vital Signs Temp 98.3 F 09/10/16 21:30 Pulse 94 09/10/16 21:30 Resp 16 09/10/16 21:30 BP 125/54 09/10/16 21:30 Pulse Ox 100 09/10/16 21:30 Intake & Output 09/10/16 09/10/16 09/11/16 06:59 18:59 06:59 Intake Total 1200 2692.974 200 Output Total 2220 2150 225 Balance -1020 542.974 -25 Weight 115.3 kg 115.3 kg Intake: IV 1200 1000 200 Sodium Chloride 0.9% 1, 1200 1000 200 000 ml @ 100 mls/hr IV . Q10H BROOKE Rx#:[id number] Intake, IV Titration 372.974 Amount Norepinephrine 4 mg In 172.974 Sodium Chloride 0.9% 250 ml @ Titrate IV .Q0M BROOKE Rx#:[id number] Sodium Chloride 0.9% 1, 200 000 ml @ 100 mls/hr IV . Q10H BROOKE Rx#:[id number] Oral 1320 Output: Urine 2220 2150 225 Other: Voiding Method Indwelling Catheter Indwelling Catheter Indwelling Catheter - Exam HEENT: anicteric without significant nasal or oral lesions dentition is poor but no thrush Neck: The neck is supple without significant lymphadenopathy or thyromegaly. Lungs: there is symmetrical air entry to the bilateral lue bibasilar c Heart: irregular with an audible S1-S2, no S3 no S4. A 2/6 systolic murmur left sternal border is without change PMI was nondisplaced. Abdomen: obesePositive bowel sounds soft and nontender without palpable masses or organomegaly. There was no guarding or rebound.ostomy is functioning well Extremities: The upper extremities have excellent pulses they are symmetric, no significant petechiae or telangiectasia. No splinter hemorrhages were noted. The lower extremities are free from significant edema. The peripheral pulses were 2+ and symmetric. Neuro: Awake and alert following simple commands much more interactive than initial evaluation. - Labs CBC & Chem 7: 09/10/16 04:53 09/10/16 04:53 Labs: Abnormal Lab Results - Last 24 Hours (Table) 09/10/16 09/10/16 09/10/16 Range/Units 04:53 04:53 07:54 RBC 3.24 L (3.80-5.40) m/uL Hgb 9.6 L (11.4-16.0) gm/dL Hct 31.1 L (34.0-46.0) % MCHC 30.7 L (31.0-37.0) g/dL Lymphocytes # 0.8 L (1.0-4.8) k/uL Sodium 148 H (137-145) mmol/L Chloride 113 H (98-107) mmol/L Glucose 195 H (74-99) mg/dL POC Glucose (mg/dL) 180 H (75-99) mg/dL Calcium 7.8 L (8.4-10.2) mg/dL Phosphorus 2.3 L (2.5-4.5) mg/dL AST 61 H (14-36) U/L ALT 53 H (9-52) U/L Total Protein 5.7 L (6.3-8.2) g/dL Albumin 2.8 L (3.5-5.0) g/dL 09/10/16 09/10/16 09/10/16 Range/Units 11:24 16:58 20:43 RBC (3.80-5.40) m/uL Hgb (11.4-16.0) gm/dL Hct (34.0-46.0) % MCHC (31.0-37.0) g/dL Lymphocytes # (1.0-4.8) k/uL Sodium (137-145) mmol/L Chloride (98-107) mmol/L Glucose (74-99) mg/dL POC Glucose (mg/dL) 232 H 138 H 124 H (75-99) mg/dL Calcium (8.4-10.2) mg/dL Phosphorus (2.5-4.5) mg/dL AST (14-36) U/L ALT (9-52) U/L Total Protein (6.3-8.2) g/dL Albumin (3.5-5.0) g/dL Microbiology - Last 24 Hours (Table) 09/08/16 00:50 Blood Culture - Preliminary Blood No Growth after 48 hours 09/08/16 00:35 Blood Culture - Preliminary Blood No Growth after 48 hours Laboratory Results WBC 7.1 k/uL (3.8-10.6) 09/10/16 04:53 RBC 3.24 m/uL (3.80-5.40) L 09/10/16 04:53 Hgb 9.6 gm/dL (11.4-16.0) L 09/10/16 04:53 Hct 31.1 % (34.0-46.0) L 09/10/16 04:53 MCV 95.9 fL (80.0-100.0) D 09/10/16 04:53 MCH 29.5 pg (25.0-35.0) 09/10/16 04:53 MCHC 30.7 g/dL (31.0-37.0) L 09/10/16 04:53 RDW 14.2 % (11.5-15.5) 09/10/16 04:53 Plt Count 187 k/uL (150-450) 09/10/16 04:53 Neutrophils % 81 % 09/10/16 04:53 Lymphocytes % 11 % 09/10/16 04:53 Monocytes % 5 % 09/10/16 04:53 Eosinophils % 2 % 09/10/16 04:53 Basophils % 0 % 09/10/16 04:53 Neutrophils # 5.8 k/uL (1.3-7.7) 09/10/16 04:53 Lymphocytes # 0.8 k/uL (1.0-4.8) L 09/10/16 04:53 Monocytes # 0.4 k/uL (0-1.0) 09/10/16 04:53 Eosinophils # 0.1 k/uL (0-0.7) 09/10/16 04:53 Basophils # 0.0 k/uL (0-0.2) 09/10/16 04:53 Hypochromasia Marked 09/10/16 04:53 PT 10.9 sec (9.0-12.0) 09/08/16 00:42 INR 1.1 (<1.1) 09/08/16 00:42 APTT 27.4 sec (22.0-30.0) 09/08/16 00:42 Sample Site LRAD 09/07/16 23:46 ABG pH 7.46 (7.35-7.45) H 09/07/16 23:46 ABG pCO2 29 mmHg (35-45) L 09/07/16 23:46 ABG pO2 62 mmHg (83-108) L 09/07/16 23:46 ABG HCO3 21 mmol/L (21-25) 09/07/16 23:46 ABG Total CO2 21 mmol/L (19-24) 09/07/16 23:46 ABG O2 Saturation 93.0 % (94-97) L 09/07/16 23:46 ABG Base Excess -2.8 mmol/L 09/07/16 23:46 FiO2 36 % 09/07/16 23:46 Sodium 148 mmol/L (137-145) H 09/10/16 04:53 Potassium 4.4 mmol/L (3.5-5.1) 09/10/16 04:53 Chloride 113 mmol/L (98-107) H 09/10/16 04:53 Carbon Dioxide 23 mmol/L (22-30) 09/10/16 04:53 Anion Gap 12 mmol/L 09/10/16 04:53 BUN 14 mg/dL (7-17) 09/10/16 04:53 Creatinine 0.85 mg/dL (0.52-1.04) 09/10/16 04:53 Est GFR (MDRD) Af Amer >60 (>60 ml/min/1.73 sqM) 09/10/16 04:53 Est GFR (MDRD) Non-Af >60 (>60 ml/min/1.73 sqM) 09/10/16 04:53 Glucose 195 mg/dL (74-99) H 09/10/16 04:53 POC Glucose (mg/dL) 124 mg/dL (75-99) H 09/10/16 20:43 POC Glu Hang Gliding Instructor ID Aditya Aiken 09/10/16 20:[address] Glu mg/dL 174 mg/dL 09/08/16 03:36 Hemoglobin A1c 7.7 % (4.2-6.1) H 09/08/16 03:36 Plasma Lactic Acid George 2.7 mmol/L (0.7-2.0) H* 09/08/16 03:36 Calcium 7.8 mg/dL (8.4-10.2) L 09/10/16 04:53 Phosphorus 2.3 mg/dL (2.5-4.5) L 09/10/16 04:53 Magnesium 2.3 mg/dL (1.6-2.3) 09/10/16 04:53 Total Bilirubin 0.3 mg/dL (0.2-1.3) 09/10/16 04:53 AST 61 U/L (14-36) H 09/10/16 04:53 ALT 53 U/L (9-52) H 09/10/16 04:53 Alkaline Phosphatase 72 U/L (38-126) 09/10/16 04:53 Total Creatine Kinase 1380 U/L (30-135) H 09/08/16 00:42 CK-MB (CK-2) 4.9 ng/mL (0.0-2.4) H* 09/08/16 00:42 CK-MB (CK-2) Rel Index 0.4 09/08/16 00:42 Troponin I 0.026 ng/mL (0.000-0.034) 09/07/16 22:28 NT-Pro-B Natriuret Pep 2790 pg/mL 09/07/16 22:28 Total Protein 5.7 g/dL (6.3-8.2) L 09/10/16 04:53 Albumin 2.8 g/dL (3.5-5.0) L 09/10/16 04:53 Triglycerides 194 mg/dL (<150) H 09/09/16 05:05 Cholesterol 150 mg/dL (<200) 09/09/16 05:05 LDL Cholesterol, Calc 74 mg/dL (0-99) 09/09/16 05:05 HDL Cholesterol 37 mg/dL (40-60) L 09/09/16 05:05 Homocysteine 5.73 umol/L (4.00-14.00) 09/08/16 03:36 Cortisol 10 ug/dL 09/10/16 04:53 Urine Color Yellow 09/07/16 16:33 Urine Appearance Cloudy (Clear) H 09/07/16 16:33 Urine pH 5.0 (5.0-8.0) 09/07/16 16:33 Ur Specific Davin 1.011 (1.001-1.035) 09/07/16 16:33 Urine Protein Trace (Negative) H 09/07/16 16:33 Urine Glucose (UA) Negative (Negative) 09/07/16 16:33 Urine Ketones Negative (Negative) 09/07/16 16:33 Urine Blood Small (Negative) H 09/07/16 16:33 Urine Nitrate Negative (Negative) 09/07/16 16:33 Urine Bilirubin Negative (Negative) 09/07/16 16:33 Urine Urobilinogen <2.0 mg/dL (<2.0) 09/07/16 16:33 Ur Leukocyte Esterase Large (Negative) H 09/07/16 16:33 Urine RBC 9 /hpf (0-5) H 09/07/16 16:33 Urine WBC 28 /hpf (0-5) H 09/07/16 16:33 Ur Squamous Epith Cells <1 /hpf (0-4) 09/07/16 16:33 Hyaline Casts 79 /lpf (0-2) H 09/07/16 16:33 Urine Mucus Rare /hpf (None) H 09/07/16 16:33 C. 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 There was concerns to pulmonary edema and although she had some hypotension there was concerns to fluid resuscitation. Upon arrival does not appear to have congestive heart failure is received several liters of fluid and is having some improvement of her hypotension and has less vasopressor requirements than prior. It is noted she is a poor historian. She does seem to be comfortable. She does have a history of chronic indwelling catheter for urinary retention related to her underlying neurological condition. Likely has urinary tract infection. Prior cultures are reviewed and she would have concerns to Levaquin resistant pathogens. Consequently antibiotic therapy is altered to ceftriaxone to cover the prior isolated pathogens. As noted chest x- ray without evidence of pneumonia or congestive heart failure. Receiving fluid boluses with improvement. As far as her potential for neurological deficits this is difficult to discern at this point in time and neurology is following. There was concerns to loose stool within her Ostomy and this is been sent to theLaboratory and is tested negative for C. diff toxin. Has noted urinalysis is abnormal culture is pending. Blood cultures are pending. Both are negative at this time but the patient had a septic presentation and admission. We'll continue ceftriaxone for now Leukocytosis is showing some improvement.did have evidence of acute renal failure at admission it is showing resolution. Lactic acidosis is also improved. Echocardiogram reveals evidence of the aortic stenosis without evidence of any endocarditis. Status: Acute (2) Altered mental status Status: Acute (3) Diabetes mellitus type 2, insulin dependent Status: Chronic (4) Urinary tract infection Status: Acute
[2016-09-11] MEDS: IPRATROPIUM-ALBUTEROL 3 ML NEB INHALATION SCH ×4 (07:30→20:36)
[2016-09-11 07:33] LABS: Glucose,Whole Blood 182 mg/dL (75-99)
[2016-09-11] MEDS: INSULIN LISPRO (humaLOG) 300 UNIT/3 ML VIAL SQ SCH ×7 (07:34→21:30)
[2016-09-11 08:05] LABS: Basophils % (A) 0 %; CH 28.1; CHCM 29.5; Eosinophils # (A) 0.2 k/uL (0-0.7); Eosinophils % (A) 4 %; HCT 30.9 % (34.0-46.0); HGB 9.5 gm/dL (11.4-16.0); Hypochromasia Marked; Luc # (Auto) 0.08; Luc % (Auto) 2; Lymphocytes # (A) 0.7 k/uL (1.0-4.8); Lymphocytes % (A) 15 %; MCH 29.5 pg (25.0-35.0); MCHC 30.8 g/dL (31.0-37.0); MCV 95.6 fL (80.0-100.0); Mean Platelet Volume 8.1; Monocytes # (A) 0.2 k/uL (0-1.0); Monocytes % (A) 5 %; Neutrophils # (A) 3.6 k/uL (1.3-7.7); Neutrophils % (A) 75 %; RBC 3.23 m/uL (3.80-5.40); RDW 14.1 % (11.5-15.5); WBC 4.8 k/uL (3.8-10.6); WBC (Perox) 4.94
[2016-09-11 08:43] LABS: ALT 55 U/L (9-52); AST 44 U/L (14-36); Alkaline Phosphatase 81 U/L (38-126); Anion Gap 11 mmol/L; Blood Urea Nitrogen 10 mg/dL (7-17); Calcium 8.1 mg/dL (8.4-10.2); Carbon Dioxide 25 mmol/L (22-30); Chloride 114 mmol/L (98-107); Glucose 190 mg/dL (74-99); Magnesium 2.1 mg/dL (1.6-2.3); Non-African American GFR(MDRD) >60 (>60 ml/min/1.73 sqM); Phosphorous 2.5 mg/dL (2.5-4.5); Potassium 4.2 mmol/L (3.5-5.1); Sodium 150 mmol/L (137-145); Total Bilirubin 0.2 mg/dL (0.2-1.3); Total Protein 5.8 g/dL (6.3-8.2)
[2016-09-11] MEDS: ENOXAPARIN 40 MG/0.4 ML SYRINGE SQ SCH (09:13)
[2016-09-11] MEDS: ASPIRIN 81 MG CHEW PO SCH (09:13)
[2016-09-11] MEDS: PANTOPRAZOLE 40 MG TABLET PO SCH (09:13)
--- NOTE | 2016-09-11 10:28 | PN ---
DATE OF SERVICE: 09/10/2016 INTERVAL HISTORY: Dede Freeman is a 61-year-old female with a known history of cerebrovascular accident with left sided paralysis, hypertension, coronary artery disease, and obstructive sleep apnea and chronic indwelling Humphrey catheter due to urinary retention and had chronic hydronephrosis of the kidneys admitted into the hospital from [facility] with sepsis and urinary tract infection. The patient was given 4 L of fluid bolus with improvement of lactic acidosis and the patient is currently off of Levophed and currently maintained her blood pressure. Otherwise, urine culture is showing polymicrobial culture with gram-negative bacilli, Staph aureus and group B enterococcus. The patient was seen by cardiology for possible CHF and a 2-D echo showed normal ejection fraction and aortic valve stenosis. Otherwise, patient denied any complaints of fever, chills, denied any short of breath or chest pain. No acute overnight issues. Tolerating p.o. diet. REVIEW OF SYSTEMS: CONSTITUTIONAL: No fever. No chills. No weakness or malaise. RESPIRATORY: No cough or sputum production. CARDIOVASCULAR: No chest pain or short of breath. ABDOMEN: No nausea, vomiting, abdominal pain. GENITOURINARY: Negative. ENDOCRINE: Negative. PSYCHIATRY: Negative. SKIN: Negative. All other fourteen-point review of system negative as above. CURRENT MEDICATIONS: Reviewed. PHYSICAL EXAMINATION: A 61 -year-old female lying in bed comfortably. Awake, alert, oriented x3, appears to be in no apparent distress. Morbid obese. VITAL SIGNS: Blood pressure is 125/54, pulse is 74. Respiratory rate 16. Temperature afebrile. Pulse ox 100% on 3 L nasal cannula. HEENT: Atraumatic, normocephalic. Neck is supple. No JVD. CVS: S1, S2 heard. No murmurs. No gallop. LUNGS: Bilateral air entry is present. No wheeze. No crackles. ABDOMEN: Soft. Bowel sounds are present. Patient has suprapubic catheter and colostomy bag in place. 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 The patient does have left side weakness. EXTREMITIES: Trace edema. Pulses palpable bilaterally. No clubbing or cyanosis. PSYCHIATRIC: Cooperative. LABORATORY DATA: WBC 7.1, hemoglobin 9.6, platelets 187, sodium 148, potassium 4.4, chloride 103, bicarb is 23, BUN 14, creatinine 0.85, albumin 2.8, ( ) level is 10. Chest x-ray showed no acute cardiopulmonary process. 2D echo showed normal ejection fraction and aortic valve stenosis. IMPRESSION: 1. Altered mental status secondary to metabolic encephalopathy, secondary to infection, improved now. 2. Sepsis secondary to urinary tract infection and cultures showing polymicrobial organisms, ID is following this patient. 3. Hypernatremia secondary to ( ) volume depletion. 4. Lactic acidosis, improved now. 5. History of cerebrovascular accident with left-sided paralysis. 6. Uncontrolled diabetes mellitus. 7. Morbid obesity with body mass index of 51.5. 8. History of multiple urinary tract infections and chronic hydronephrosis and chronic Humphrey catheter placement for urinary retention. 9. Colostomy bag placement. 10. History of olivopontocerebellar degeneration. 11. Chronic weakness. 12. History of bronchial asthma. 13. History of coronary artery disease. 14. Hypertension. DISCUSSION AND PLAN: A 61 -year-old female with multiple medical problems and comorbid conditions admitted to the hospital with shortness of breath and found to have sepsis, secondary to urinary tract infection. Currently the patient is off ( ) drip. Continue with antibiotics in the form of ceftriaxone as per ID recommendations and will continue with insulin dosing and continue the IV fluids and current management and anticipate transfer to [facility] sometime today. Further recommendations based on clinical course. Cardiology recommends MURIEL once clinically improved.
[2016-09-11] MEDS: SODIUM CHLORIDE 0.9% 1,000 ML IV SCH ×2 (10:46→21:09)
[2016-09-11 11:08] LABS: Glucose,Whole Blood 106 mg/dL (75-99)
--- NOTE | 2016-09-11 14:50 | MR ---
EXAMINATION TYPE: MR brain wo con DATE OF EXAM: 09/11/2016 1:50 PM COMPARISON: CT brain 09/07/2016, MR brain 01/31/2010 HISTORY: Acute confusion. T1-weighted sagittal, T2, FLAIR, and diffusion axial, and T2 coronal coronal views of the brain are s ubmitted. There is no evidence of acute ischemia. The ventricles, basal cisterns, and sulci overlying the conv exities are consistent with [id number] degenerative change. There is no mass effect. Craniocervical junction maintained. Sella turcica has a normal appearance. Changes of chronic sinusit is noted. Diffuse and numerous focal areas of periventricular and deep white matter abnormal signal are nonspec ific. Abnormal signal in the thalamus on the right suggestive of remote lacunar infarction. Abnormal signal is noted within the brainstem and cerebellum bilaterally. Finding nonspecific may be related to remote ischemia or demyelination. Somewhat atrophic changes involving the cerebellum and portions of the brainstem. Correlate for histo ry of degenerative brainstem cerebellar syndrome. IMPRESSION: 1. Diffuse signal within the brainstem is again noted. This could be on the basis of central pontine myelinolysis. Remote ischemia or dysmyelinating, demyelination also in the differential. Somewhat at rophic changes involving the cerebellum and portions of the brainstem. Correlate for history of degen erative brainstem cerebellar syndrome. 2. Lirx-hv-sihnqlvf degenerative change. 3. Nonspecific white matter changes. Differential include remote microvascular ischemia or demyelinat ing process.
--- NOTE | 2016-09-11 15:51 | CDI ---
In responding to this query, please exercise your independent professional judgment. The [facility] Coding Staff and Clinical Documentation Specialists appreciate your assistance in clarifying documentation, maintaining compliance with coding guidelines, accurately documenting patients condition and capturing severity of illness. The fact that a question is asked does not imply that any particular answer is desired or expected. Communication forms are a method of clarifying documentation and are not made part of the Legal Health Record. Thank you in advance for your clarification. Last Revision, November 2015 Darrian Mei [address] [place] [address] Documentation Clarification Form Date: 09/11/2016 3:26:00 PM From: Debra Jones Admit Date: 09/07/2016 5:59:00 PM Patient Name: Dede Freeman Visit Number: [id number] Discharge Date: Dr. Gillian Gilbert Shock is documented in the in the progress notes on Patient history/risk factors: CVA with left-sided paralysis, Hypertension, CAD, Obstructive sleep apnea, chronic indwelling Humphrey catheter Clinical Indicators: Sent from [facility] with altered mental status and found abnormal urinalysis and urinary tract infection and possible sepsis. Lactic acidosis of 2.8 Vitals: 92/67 132 16 98.8 97 % 4/LNC, 81/65 136, 40, Temp Max 103.2 Labs: WBC 12.2 on admission Consult Pulmonary: 09/08/16:acute sepsis secondary to acute urinary tract infection secondary to chronic indwelling Humphrey catheter. Will use norepinephrine if the patient does not improve with fluid boluses and that would mean the patient is having a septic shock Treatment: IV Fluid bolus Levophed drip (DC 09/10/16) Rocephin IV IV@ 100ml/hr In your professional opinion, can you please clarify if you are treating Shock and specify the type of shock if known? Septic Shock o Suspected or known causative organism o Any associated organ failure Cardiogenic Shock o Cause Hypovolemic Shock o Cause Other, please specify Unable to determine Please document in your progress notes and discharge summary in order to capture severity of illness and risk of mortality. Include clinical findings that support your diagnosis. FYI: Press F11 to launch patient chart. Place X here if this finding has no clinical significance, is not applicable or if you are not able to provide any additional documentation. MTDD
[2016-09-11 17:35] LABS: Glucose,Whole Blood 108 mg/dL (75-99)
[2016-09-11 21:08] LABS: Glucose,Whole Blood 174 mg/dL (75-99)
[2016-09-11] MEDS: ACETAMINOPHEN TAB 325 MG TAB PO PRN (21:09)
[2016-09-11] MEDS: INSULIN DETEMIR 100 UNIT/ML 10 ML VIAL SQ SCH (21:30)
--- NOTE | 2016-09-11 22:13 | P.PN ---
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 She's not been seen by pulmonary critical care and neurology a sitting or lying neurological difficulties. Infectious diseases consultation requested regarding her urinary infection. She was seen by the service emergency 2016 which point in time she had a somewhat resistant urinary tract infection as well as a sigmoid volvulus that required exploratory laparotomy and colostomy placement. She does have limited ability to interact with the observer. That is now much more awake alert and interactive. She is able to converse although slowly. She relates that she feels better. And was surprised at how quickly she became so ill and unable to communicate. Denies much discomfort at this time. Feeling better today. Objective - Vital Signs Vital signs: Vital Signs Temp 97.5 F L 09/11/16 15:00 Pulse 94 09/11/16 16:00 Resp 18 09/11/16 16:00 BP 111/68 09/11/16 15:00 Pulse Ox 99 09/11/16 15:00 Intake & Output 09/11/16 09/11/16 09/12/16 06:59 18:59 06:59 Intake Total 1670 700 Output Total 2024 1999 Balance -355 -1300 Intake: IV 1100 700 Sodium Chloride 0.9% 1, 1100 700 000 ml @ 100 mls/hr IV . Q10H [facility] Rx#:[id number] Oral 570 Output: Urine 2024 1999 Uretheral (Humphrey) 1800 Other: Voiding Method Indwelling Catheter Indwelling Catheter - Exam HEENT: anicteric without significant nasal or oral lesions dentition is poor but no thrush Neck: The neck is supple without significant lymphadenopathy or thyromegaly. Lungs: there is symmetrical air entry to the bilateral lue bibasilar c Heart: irregular with an audible S1-S2, no S3 no S4. A 2/6 systolic murmur left sternal border is without change PMI was nondisplaced. Abdomen: obesePositive bowel sounds soft and nontender without palpable masses or organomegaly. There was no guarding or rebound.ostomy is functioning well Extremities: The upper extremities have excellent pulses they are symmetric, no significant petechiae or telangiectasia. No splinter hemorrhages were noted. The lower extremities are free from significant edema. The peripheral pulses were 2+ and symmetric. Neuro: Awake and alert following simple commands much more interactive than initial evaluation. - Labs CBC & Chem 7: 09/11/16 07:32 09/11/16 07:32 Labs: Abnormal Lab Results - Last 24 Hours (Table) 09/11/16 09/11/16 09/11/16 Range/Units 07:28 07:32 07:32 RBC 3.23 L (3.80-5.40) m/uL Hgb 9.5 L (11.4-16.0) gm/dL Hct 30.9 L (34.0-46.0) % MCHC 30.8 L (31.0-37.0) g/dL Lymphocytes # 0.7 L (1.0-4.8) k/uL Sodium 150 H (137-145) mmol/L Chloride 114 H (98-107) mmol/L Glucose 190 H (74-99) mg/dL POC Glucose (mg/dL) 182 H (75-99) mg/dL Calcium 8.1 L (8.4-10.2) mg/dL AST 44 H (14-36) U/L ALT 55 H (9-52) U/L Total Protein 5.8 L (6.3-8.2) g/dL Albumin 2.8 L (3.5-5.0) g/dL 09/11/16 09/11/16 09/11/16 Range/Units 11:02 17:03 20:47 RBC (3.80-5.40) m/uL Hgb (11.4-16.0) gm/dL Hct (34.0-46.0) % MCHC (31.0-37.0) g/dL Lymphocytes # (1.0-4.8) k/uL Sodium (137-145) mmol/L Chloride (98-107) mmol/L Glucose (74-99) mg/dL POC Glucose (mg/dL) 106 H 108 H 174 H (75-99) mg/dL Calcium (8.4-10.2) mg/dL AST (14-36) U/L ALT (9-52) U/L Total Protein (6.3-8.2) g/dL Albumin (3.5-5.0) g/dL Microbiology - Last 24 Hours (Table) 09/08/16 00:50 Blood Culture - Preliminary Blood No Growth after 72 hours 09/08/16 00:35 Blood Culture - Preliminary Blood No Growth after 72 hours Laboratory Results WBC 4.8 k/uL (3.8-10.6) 09/11/16 07:32 RBC 3.23 m/uL (3.80-5.40) L 09/11/16 07:32 Hgb 9.5 gm/dL (11.4-16.0) L 09/11/16 07:32 Hct 30.9 % (34.0-46.0) L 09/11/16 07:32 MCV 95.6 fL (80.0-100.0) 09/11/16 07:32 MCH 29.5 pg (25.0-35.0) 09/11/16 07:32 MCHC 30.8 g/dL (31.0-37.0) L 09/11/16 07:32 RDW 14.1 % (11.5-15.5) 09/11/16 07:32 Plt Count 178 k/uL (150-450) 09/11/16 07:32 Neutrophils % 75 % 09/11/16 07:32 Lymphocytes % 15 % 09/11/16 07:32 Monocytes % 5 % 09/11/16 07:32 Eosinophils % 4 % 09/11/16 07:32 Basophils % 0 % 09/11/16 07:32 Neutrophils # 3.6 k/uL (1.3-7.7) 09/11/16 07:32 Lymphocytes # 0.7 k/uL (1.0-4.8) L 09/11/16 07:32 Monocytes # 0.2 k/uL (0-1.0) 09/11/16 07:32 Eosinophils # 0.2 k/uL (0-0.7) 09/11/16 07:32 Basophils # 0.0 k/uL (0-0.2) 09/11/16 07:32 Hypochromasia Marked 09/11/16 07:32 PT 10.9 sec (9.0-12.0) 09/08/16 00:42 INR 1.1 (<1.1) 09/08/16 00:42 APTT 27.4 sec (22.0-30.0) 09/08/16 00:42 Sample Site LRAD 09/07/16 23:46 ABG pH 7.46 (7.35-7.45) H 09/07/16 23:46 ABG pCO2 29 mmHg (35-45) L 09/07/16 23:46 ABG pO2 62 mmHg (83-108) L 09/07/16 23:46 ABG HCO3 21 mmol/L (21-25) 09/07/16 23:46 ABG Total CO2 21 mmol/L (19-24) 09/07/16 23:46 ABG O2 Saturation 93.0 % (94-97) L 09/07/16 23:46 ABG Base Excess -2.8 mmol/L 09/07/16 23:46 FiO2 36 % 09/07/16 23:46 Sodium 150 mmol/L (137-145) H 09/11/16 07:32 Potassium 4.2 mmol/L (3.5-5.1) 09/11/16 07:32 Chloride 114 mmol/L (98-107) H 09/11/16 07:32 Carbon Dioxide 25 mmol/L (22-30) 09/11/16 07:32 Anion Gap 11 mmol/L 09/11/16 07:32 BUN 10 mg/dL (7-17) 09/11/16 07:32 Creatinine 0.74 mg/dL (0.52-1.04) 09/11/16 07:32 Est GFR (MDRD) Af Amer >60 (>60 ml/min/1.73 sqM) 09/11/16 07:32 Est GFR (MDRD) Non-Af >60 (>60 ml/min/1.73 sqM) 09/11/16 07:32 Glucose 190 mg/dL (74-99) H 09/11/16 07:32 POC Glucose (mg/dL) 174 mg/dL (75-99) H 09/11/16 20:47 POC Glu Comparator Operator ID Erica Salazar 09/11/16 20:[address] Glu mg/dL 174 mg/dL 09/08/16 03:36 Hemoglobin A1c 7.7 % (4.2-6.1) H 09/08/16 03:36 Plasma Lactic Acid George 2.7 mmol/L (0.7-2.0) H* 09/08/16 03:36 Calcium 8.1 mg/dL (8.4-10.2) L 09/11/16 07:32 Phosphorus 2.5 mg/dL (2.5-4.5) 09/11/16 07:32 Magnesium 2.1 mg/dL (1.6-2.3) 09/11/16 07:32 Total Bilirubin 0.2 mg/dL (0.2-1.3) 09/11/16 07:32 AST 44 U/L (14-36) H 09/11/16 07:32 ALT 55 U/L (9-52) H 09/11/16 07:32 Alkaline Phosphatase 81 U/L (38-126) 09/11/16 07:32 Total Creatine Kinase 1380 U/L (30-135) H 09/08/16 00:42 CK-MB (CK-2) 4.9 ng/mL (0.0-2.4) H* 09/08/16 00:42 CK-MB (CK-2) Rel Index 0.4 09/08/16 00:42 Troponin I 0.026 ng/mL (0.000-0.034) 09/07/16 22:28 NT-Pro-B Natriuret Pep 2790 pg/mL 09/07/16 22:28 Total Protein 5.8 g/dL (6.3-8.2) L 09/11/16 07:32 Albumin 2.8 g/dL (3.5-5.0) L 09/11/16 07:32 Triglycerides 194 mg/dL (<150) H 09/09/16 05:05 Cholesterol 150 mg/dL (<200) 09/09/16 05:05 LDL Cholesterol, Calc 74 mg/dL (0-99) 09/09/16 05:05 HDL Cholesterol 37 mg/dL (40-60) L 09/09/16 05:05 Homocysteine 5.73 umol/L (4.00-14.00) 09/08/16 03:36 Cortisol 10 ug/dL 09/10/16 04:53 Urine Color Yellow 09/07/16 16:33 Urine Appearance Cloudy (Clear) H 09/07/16 16:33 Urine pH 5.0 (5.0-8.0) 09/07/16 16:33 Ur Specific Clarks 1.011 (1.001-1.035) 09/07/16 16:33 Urine Protein Trace (Negative) H 09/07/16 16:33 Urine Glucose (UA) Negative (Negative) 09/07/16 16:33 Urine Ketones Negative (Negative) 09/07/16 16:33 Urine Blood Small (Negative) H 09/07/16 16:33 Urine Nitrate Negative (Negative) 09/07/16 16:33 Urine Bilirubin Negative (Negative) 09/07/16 16:33 Urine Urobilinogen <2.0 mg/dL (<2.0) 09/07/16 16:33 Ur Leukocyte Esterase Large (Negative) H 09/07/16 16:33 Urine RBC 9 /hpf (0-5) H 09/07/16 16:33 Urine WBC 28 /hpf (0-5) H 09/07/16 16:33 Ur Squamous Epith Cells <1 /hpf (0-4) 09/07/16 16:33 Hyaline Casts 79 /lpf (0-2) H 09/07/16 16:33 Urine Mucus Rare /hpf (None) H 09/07/16 16:33 C. 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 There was concerns to pulmonary edema and although she had some hypotension there was concerns to fluid resuscitation. Upon arrival does not appear to have congestive heart failure is received several liters of fluid and is having some improvement of her hypotension and has less vasopressor requirements than prior. It is noted she is a poor historian. She does seem to be comfortable. She does have a history of chronic indwelling catheter for urinary retention related to her underlying neurological condition. Likely has urinary tract infection. Prior cultures are reviewed and she would have concerns to Levaquin resistant pathogens. Consequently antibiotic therapy is altered to ceftriaxone to cover the prior isolated pathogens. As noted chest x- ray without evidence of pneumonia or congestive heart failure. Receiving fluid boluses with improvement. As far as her potential for neurological deficits this is difficult to discern at this point in time and neurology is following. There was concerns to loose stool within her Ostomy and this is been sent to theLaboratory and is tested negative for C. diff toxin. Has noted urinalysis is abnormal culture is pending. With a negative urine culture when she is ready for discharge to home we'll alter ceftriaxone to cefuroxime to complete her course of therapy. 500 mg every 12 hours for 7 days. Blood cultures are pending. Both are negative at this time but the patient had a septic presentation and admission. We'll continue ceftriaxone for now Leukocytosis has resolved as well as the renal failure. Lactic acidosis is improved. Echocardiogram reveals evidence of the aortic stenosis without evidence of any endocarditis. Status: Acute (2) Altered mental status Status: Acute (3) Diabetes mellitus type 2, insulin dependent Status: Chronic (4) Urinary tract infection Status: Acute
[2016-09-11 22:58] VITALS: RESP 16
[2016-09-12] MEDS: SODIUM CHLORIDE 0.9% 1,000 ML IV SCH (05:42)
[2016-09-12 07:23] LABS: Glucose,Whole Blood 196 mg/dL (75-99)
[2016-09-12] MEDS: INSULIN LISPRO (humaLOG) 300 UNIT/3 ML VIAL SQ SCH ×4 (07:39→12:02)
[2016-09-12 07:52] LABS: Basophils % (A) 0 %; CH 28.8; CHCM 30.6; Eosinophils # (A) 0.3 k/uL (0-0.7); Eosinophils % (A) 5 %; HCT 32.1 % (34.0-46.0); HDW 2.58; HGB 9.7 gm/dL (11.4-16.0); Hypochromasia Moderate; Luc # (Auto) 0.07; Luc % (Auto) 1; Lymphocytes # (A) 0.9 k/uL (1.0-4.8); Lymphocytes % (A) 16 %; MCH 28.6 pg (25.0-35.0); MCHC 30.2 g/dL (31.0-37.0); MCV 94.8 fL (80.0-100.0); Mean Platelet Volume 9.4; Monocytes # (A) 0.3 k/uL (0-1.0); Monocytes % (A) 5 %; Neutrophils % (A) 73 %; RBC 3.38 m/uL (3.80-5.40); RDW 14.5 % (11.5-15.5); WBC 5.4 k/uL (3.8-10.6); WBC (Perox) 5.52
[2016-09-12 08:11] VITALS: BP 148/88; TEMP 98.1
[2016-09-12] MEDS: PANTOPRAZOLE 40 MG TABLET PO SCH (08:17)
[2016-09-12] MEDS: ENOXAPARIN 40 MG/0.4 ML SYRINGE SQ SCH (08:17)
[2016-09-12] MEDS: ASPIRIN 81 MG CHEW PO SCH (08:17)
[2016-09-12 08:18] LABS: ALT 48 U/L (9-52); AST 31 U/L (14-36); Alkaline Phosphatase 78 U/L (38-126); Anion Gap 11 mmol/L; Blood Urea Nitrogen 7 mg/dL (7-17); Calcium 8.3 mg/dL (8.4-10.2); Carbon Dioxide 26 mmol/L (22-30); Chloride 114 mmol/L (98-107); Glucose 176 mg/dL (74-99); Magnesium 1.9 mg/dL (1.6-2.3); Non-African American GFR(MDRD) >60 (>60 ml/min/1.73 sqM); Phosphorous 3.5 mg/dL (2.5-4.5); Potassium 4.2 mmol/L (3.5-5.1); Sodium 151 mmol/L (137-145); Total Bilirubin 0.2 mg/dL (0.2-1.3); Total Protein 5.7 g/dL (6.3-8.2)
--- NOTE | 2016-09-12 09:22 | PN ---
DATE OF SERVICE: 09/11/2016 This 61-year-old woman was admitted with change in mental status, also had sepsis from urinary tract infection. The patient is closely monitored. Sensorium is improved significantly. No chest pain, no palpitations. No fever. On exam, alert and oriented x2. Pulse 94, blood pressure 111/68, respiration 18, temperature 97.2, pulse ox 90% on 3 liters. HEENT: Conjunctivae normal. NECK: No jugular venous distention. CARDIOVASCULAR: S1 and S2, muffled. RESPIRATORY: Breath sounds diminished at the bases. A few scattered rhonchi and crackles. ABDOMEN: Soft, nontender. No mass palpable. LEGS: No edema, no swelling. NERVOUS SYSTEM: Higher function as mentioned. Moves all four limbs. No focal motor deficits. LYMPHATIC: No lymphadenopathy in the neck, axillae or groin. SKIN: No ulcer, rash or bleeding. LABS: WBC 4, hemoglobin 9.3, sodium is 150. Albumin is 2.8. ASSESSMENT: 1. Change in mental status secondary to metabolic encephalopathy secondary to urinary tract infection with sepsis. 2. Urinary tract infection with sepsis with poly microorganisms. 3. Hypernatremia secondary to volume depletion. 4. Lactic acidosis, improved. 5. History of CVI and left-sided paralysis. 6. Uncontrolled diabetes mellitus type 2. 7. Morbid obesity with body mass index of 51.5. 8. History of multiple urinary tract infections and chronic hydronephrosis and chronic Humphrey catheter placement for urinary retention previously. 9. Colostomy bag placement. 10. History of olivopontocerebellar degeneration. 11. Chronic weakness. 12. History of bronchial asthma. 13. History of coronary artery disease. 14. History of hypertension. 15. FULL CODE. RECOMMENDATIONS AND DISCUSSION: In this 61-year-old woman who presented with multiple complex medical issues, will monitor the patient closely. Continue the current medications, symptomatic treatment. Continue broad-spectrum IV antibiotics. The patient currently on Rocephin. The cultures are noted as previously. Continue to monitor. Guarded prognosis. Discussed with family who understands. Further recommendations to follow.
[2016-09-12] MEDS: IPRATROPIUM-ALBUTEROL 3 ML NEB INHALATION SCH ×2 (09:24→12:19)
[2016-09-12] MEDS ORDERED: SODIUM CHLORIDE 0.45% 1,000 ML IV SCH (10:15)
--- NOTE | 2016-09-12 10:54 | DS ---
DATE OF ADMISSION: 09/07/2016 DATE OF DISCHARGE: Patient is a 61-year-old female with a history of olivopontocerebellar degeneration and with chronic left-sided weakness came in with altered mental status, which completely resolved. Patient has urinary retention, because of which patient had a Humphrey catheter. The organisms are sensitive to cephalosporins. Dr. Foss evaluated the patient, is recommending 7 days of ceftriaxone. Patient was blamed to have congestive heart failure, but I do not believe patient has any kind of congestive heart failure. Normal ejection fraction. Patient does have aortic stenosis, does have a clear-cut aortic stenotic murmur, about 4/6, severe. Patient is clinically doing well, can be discharged today, but have to figure out disposition. Patient is a candidate for subacute rehabilitation, but family wanted to take her to take her home with home care and once that is figured out, patient will be discharged today. PHYSICAL EXAMINATION: Patient was seen and examined on the day of discharge. VITAL SIGNS: Stable. GENERAL: The patient is alert and oriented x3, not in any acute distress. Well developed, well nourished. HEENT: Pupils are round and equally reacting to light. EOMI. No scleral icterus. No conjunctival pallor. Normocephalic, atraumatic. No pharyngeal erythema. No thyromegaly. CARDIOVASCULAR: S1 and S2 present. No murmurs, rubs, or gallops. PULMONARY: Chest is clear to auscultation, no wheezing or crackles. ABDOMEN: Soft, nontender, nondistended, normoactive bowel sounds. No palpable organomegaly. MUSCULOSKELETAL: No joint swelling or deformity. EXTREMITIES: No cyanosis, clubbing, or pedal edema. NEUROLOGICAL: No focal neurological deficits. Patient has chronic left-sided weakness. Patient's mental status is almost alert and oriented x3 now. SKIN: No rashes. Laboratory data was reviewed. The patient was seen hyperchloremic and hypernatremic because of IV normal saline she was receiving for a few days. ASSESSMENT AND PLAN: 1. Metabolic encephalopathy probably related to urinary tract infection versus baclofen. Toxic encephalopathy cannot be ruled out. 2. Possible sepsis secondary to urinary tract infection, polymicrobial in nature. 3. Hypernatremia secondary to IV normal saline she was receiving ( ) which resolved. 4. Left-sided paralysis with previous cerebral a cerebrovascular accident versus olivopontocerebellar degeneration. 5. Diabetes mellitus type 2. 6. Morbid obesity. 7. Colostomy. 8. Coronary artery disease. 9. Hypertension. Please refer to my depart summary for further details of discharge medication. DISCHARGE DIET: Cardiac and ADA 1800-calorie diet. Follow up with Dr. Zita Barboza in 3 to 7 days. Activity as tolerated. Patient will be discharged to either home or subacute rehab. I spent greater than 35 minutes in total discharge process.
[2016-09-12 11:49] LABS: Glucose,Whole Blood 92 mg/dL (75-99)
[2016-09-12 12:21] VITALS: PULSE 96
--- NOTE | 2016-09-12 14:05 | P.PN ---
Subjective This is a very pleasant 61-year-old female patient who was admitted on 2015 with acute sepsis secondary to urinary tract infection. She has a history of a left-sided paralysis, diabetes mellitus, hypertension, morbid obesity, a little pontine and cerebellar degeneration, chronic constipation, chronic Humphrey catheter placement, obstructive sleep apnea, ileostomy. He was initially seen by Dr. Gilbert here in the intensive care unit. Her chest x-ray did show significant no evidence of pulmonary edema or pneumonia. She did receive multiple fluid boluses for hypotension and did require norepinephrine support for her blood pressures. This was felt to be secondary to sepsis from urinary tract infection. Today 09/12/2016 she is seen again in follow-up on the regular medical floor. She is awake and alert in no acute distress. She denies any shortness of breath , cough or congestion. The MRI of the brain revealed diffuse signal within the brainstem. 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 We will ischemia or demyelination is also on the differential. She denies any headaches, dizziness or lightheadedness. Objective - Vital Signs Vital signs: Vital Signs Temp 98.1 F 09/12/16 07:00 Pulse 96 09/12/16 12:32 Resp 16 09/12/16 07:44 BP 148/88 09/12/16 07:00 Pulse Ox 98 09/12/16 09:25 Intake & Output 09/11/16 09/12/16 09/12/16 18:59 06:59 18:59 Intake Total 700 920 Output Total 1999 3300 Balance -1300 -2380 Intake: IV 700 Sodium Chloride 0.9% 1, 700 000 ml @ 100 mls/hr IV . Q10H [facility] Rx#:[id number] Oral 920 Output: Urine 1999 3300 Uretheral (Humphrey) 3300 Other: Voiding Method Indwelling Catheter Indwelling Catheter Indwelling Catheter - Exam GENERAL EXAM: Alert, comfortable in no apparent distress. HEAD: Normocephalic. EYES: Normal reaction of pupils, equal size. NOSE: Clear with pink turbinates. THROAT: No erythema or exudates. NECK: No masses, no JVD. CHEST: No chest wall deformity. LUNGS: Equal air entry with no crackles, wheeze, rhonchi or dullness. CVS: S1 and S2 normal with an audible murmur, regular rhythm. ABDOMEN: No hepatosplenomegaly, normal bowel sounds, no guarding or rigidity. Ileostomy is functioning. Extremities: There is trace peripheral edema. No clubbing, no cyanosis. Peripheral pulses are intact. - Labs CBC & Chem 7: 09/12/16 07:06 09/12/16 07:06 Labs: Abnormal Lab Results - Last 24 Hours (Table) 09/11/16 09/11/16 09/12/16 Range/Units 17:03 20:47 07:05 RBC (3.80-5.40) m/uL Hgb (11.4-16.0) gm/dL Hct (34.0-46.0) % MCHC (31.0-37.0) g/dL Lymphocytes # (1.0-4.8) k/uL Sodium (137-145) mmol/L Chloride (98-107) mmol/L Glucose (74-99) mg/dL POC Glucose (mg/dL) 108 H 174 H 196 H (75-99) mg/dL Calcium (8.4-10.2) mg/dL Total Protein (6.3-8.2) g/dL Albumin (3.5-5.0) g/dL 09/12/16 09/12/16 Range/Units 07:06 07:06 RBC 3.38 L (3.80-5.40) m/uL Hgb 9.7 L (11.4-16.0) gm/dL Hct 32.1 L (34.0-46.0) % MCHC 30.2 L (31.0-37.0) g/dL Lymphocytes # 0.9 L (1.0-4.8) k/uL Sodium 151 H (137-145) mmol/L Chloride 114 H (98-107) mmol/L Glucose 176 H (74-99) mg/dL POC Glucose (mg/dL) (75-99) mg/dL Calcium 8.3 L (8.4-10.2) mg/dL Total Protein 5.7 L (6.3-8.2) g/dL Albumin 2.8 L (3.5-5.0) g/dL Microbiology - Last 24 Hours (Table) 09/08/16 00:50 Blood Culture - Preliminary Blood No Growth after 96 hours 09/08/16 00:35 Blood Culture - Preliminary Blood No Growth after 96 hours Assessment and Plan Plan: Impression: #1 Acute sepsis secondary to acute urinary tract infection secondary to chronic indwelling Humphrey catheter. #2 History of illegal pontine and cerebellar degeneration. #3 Morbid obesity. #4 Diabetes mellitus, type II. #5 Chronic weakness. #6 History of chronic bronchial asthma. #7 History of coronary artery disease. #8 Hypertension. #9 Chronic renal failure and hydronephrosis. Plan: The patient was seen and evaluated by Dr. Mcginnis. She is stable from the pulmonary and critical care standpoint and could be discharged. We'll continue with her current medications. Neurology and infectious disease is on the case as well.
--- NOTE | 2016-09-14 14:39 | EEG ---
DATE OF SERVICE: 09/09/2016 INDICATIONS FOR EXAMINATION: Altered mental status. AGE: 61Y DESCRIPTION OF PROCEDURE: This EEG was performed using a 21 channel digital electroencephalograph, following international 10-20 system. DESCRIPTION OF THE RECORDING: From the beginning of the tracing, with the patient's eyes closed, the background rhythm was mostly consisting of 8 Hz alpha frequency in the posterior occipital leads. No obvious asymmetry is seen. Occasional movement artifacts are seen. Photic stimulation was performed with minimal driving response seen. No pathological waves were elicited. Hyperventilation was not performed. The patient remains awake throughout the tracing. No epileptiform discharges were seen. INTERPRETATION: This EEG can be considered within normal limits. There was no asymmetry seen. No epileptiform discharges were noticed. The absence of epileptiform discharges does not rule out the diagnosis of epilepsy. Therefore, clinical correlation is recommended.
== END 2016-09-12 14:55 | disposition home health service (06) | DRG 698 ==
LOC: EC 15:23 → 6SEL 17:59 → 6ICU 22:46 → 5MS5E 09-10 21:33
PROVIDERS: ADMIT Hospitalist; ATTEND Hospitalist
DX: T83.511A Infection and inflammatory reaction due to indwelling urethral catheter, initial encounter (principal); A41.9 Sepsis, unspecified organism; R65.21 Severe sepsis with septic shock; G92 Toxic encephalopathy; N17.9 Acute kidney failure, unspecified; E87.0 Hyperosmolality and hypernatremia; N13.30 Unspecified hydronephrosis; G81.94 Hemiplegia, unspecified affecting left nondominant side; E87.2 Acidosis; I13.0 Hypertensive heart and chronic kidney disease with heart failure and stage 1 through stage 4 chronic kidney disease, or unspecified chronic kidney disease; G37.2 Central pontine myelinolysis; I50.9 Heart failure, unspecified; D86.9 Sarcoidosis, unspecified; E11.22 Type 2 diabetes mellitus with diabetic chronic kidney disease; E11.65 Type 2 diabetes mellitus with hyperglycemia; D64.9 Anemia, unspecified; E78.5 Hyperlipidemia, unspecified; E86.9 Volume depletion, unspecified; F32.9 Major depressive disorder, single episode, unspecified; G47.33 Obstructive sleep apnea (adult) (pediatric); I25.10 Atherosclerotic heart disease of native coronary artery without angina pectoris; I35.0 Nonrheumatic aortic (valve) stenosis; J44.9 Chronic obstructive pulmonary disease, unspecified; J45.909 Unspecified asthma, uncomplicated; N18.9 Chronic kidney disease, unspecified; N39.0 Urinary tract infection, site not specified; Z79.4 Long term (current) use of insulin; Z79.82 Long term (current) use of aspirin; Z82.49 Family history of ischemic heart disease and other diseases of the circulatory system; Z86.14 Personal history of Methicillin resistant Staphylococcus aureus infection; Z86.73 Personal history of transient ischemic attack (TIA), and cerebral infarction without residual deficits; Z87.440 Personal history of urinary (tract) infections; Z93.3 Colostomy status
CPT/HCPCS: 36415; 36600; 70450; 70551; 71010; 80048; 80053; 80061; 80299; 81001; 82533; 82550; 82553; 82805; 83036; 83090; 83605; 83735; 83880; 84100; 84132; 84484; 85025; 85610; 85730; 87040; 87086; 87324; 93005; 93306; 93880; 94640; 94660; 94760; 95816; 96374; 99291

== ENCOUNTER 2019-02-26 12:07 | Emergency (ER) | payer MEDICARE ==
[2019-02-26] MEDS ORDERED: SODIUM CHLORIDE 0.9% 500 ML 500 ML IV STA (12:49)
[2019-02-26] MEDS ORDERED: ONDANSETRON 4 MG/2 ML VIAL IVP STA (12:49)
[2019-02-26] MEDS ORDERED: FAMOTIDINE 20 MG/2 ML VIAL IV STA (12:50)
--- NOTE | 2019-02-26 12:53 | ED ---
General Adult HPI - General Chief complaint: Nausea/Vomiting/Diarrhea Stated complaint: vomiting Time Seen by Provider: 02/26/19 12:23 Source: patient, family, RN notes reviewed Mode of arrival: wheelchair Limitations: no limitations - History of Present Illness Initial comments: Patient is a pleasant 63-year-old female presenting to the emergency Department with complaints of nausea vomiting. Onset of symptoms was yesterday evening. Symptoms continued today. Patient has vomited approximately 45 times. Patient has tolerated her medications however otherwise limited fluids and no solid food. No constipation. Patient does have an ostomy bag and fluid is slightly more loose than normal. No fevers. No chest pain or abdominal pain. - Related Data Home Medications Medication Instructions Recorded Confirmed Aspirin 81 mg PO DAILY 11/10/15 02/26/19 Atorvastatin Calcium [Lipitor] 20 mg PO DAILY 11/10/15 02/26/19 Budesonide [Pulmicort] 0.5 mg INHALATION RT-DAILY 11/10/15 02/26/19 Imipramine [Tofranil] 25 mg PO BID 11/10/15 02/26/19 [place]-3 Fatty Acids/Fish Oil [Fish 1 cap PO DAILY 11/10/15 02/26/19 Oil 1,000 mg Softgel] PARoxetine HCL [Paxil] 20 mg PO DAILY 11/10/15 02/26/19 metFORMIN HCL [Glucophage] 1,000 mg PO BID 11/10/15 02/26/19 Albuterol Nebulized [Ventolin 2.5 mg INHALATION RT-QID 11/11/15 02/26/19 Nebulized] Oxybutynin Xl [Ditropan XL] 5 mg PO DAILY 11/11/15 02/26/19 INSULIN LISPRO (humaLOG) [humaLOG] See Protocol SQ AC-TID 09/07/16 02/26/19 L.acidoph,Paracasei, B.lactis 1 cap PO DAILY 09/07/16 02/26/19 [Probiotic] Cholecalciferol [Vitamin D3 (25 1,000 unit PO DAILY 02/26/19 02/26/19 Mcg = 1000 Iu)] Insulin Glargine [Lantus] 45 unit SQ HS 02/26/19 02/26/19 Previous Rx's Medication Instructions Recorded Ondansetron Odt [Zofran Odt] 4 mg PO Q8HR PRN #10 tab 02/26/19 Allergies Allergy/AdvReac Type Severity Reaction Status Date / Time No Known Allergies Allergy Verified 02/26/19 13:03 Review of Systems ROS Statement: Those systems with pertinent positive or pertinent negative responses have been documented in the HPI. ROS Other: All systems not noted in ROS Statement are negative. Constitutional: Denies: fever Eyes: Denies: eye pain ENT: Denies: ear pain Respiratory: Denies: cough Cardiovascular: Denies: chest pain Endocrine: Denies: fatigue Gastrointestinal: Reports: nausea, vomiting Genitourinary: Denies: dysuria Musculoskeletal: Denies: back pain Skin: Denies: rash Neurological: Denies: weakness Past Medical History Past Medical History: Coronary Artery Disease (CAD), Diabetes Mellitus, Hyperlipidemia, Hypertension, Sleep Apnea/CPAP/BIPAP Additional Past Medical History / Comment(s): Morbid obesity, olivopontine and cerebellar degeneration, diabetes mellitus, chronic constipation, chronic urinary incontinence and the patient has a chronic Humphrey catheter in place with previous history of frequent urinary tract infections, difficulty with mobility and the patient was around with the help of a motorized scooter, obstructive sleep apnea, bronchial asthma, chronic hydronephrosis of the kidneys, hyperlipidemia, coronary artery disease, hypertension History of Any Multi-Drug Resistant Organisms: C-DIFF, MRSA Date of last positivie culture/infection: 11/2015 MDRO Source:: c-diff, mrsa 2011 in blood Past Surgical History: No Surgical Hx Reported, Bowel Resection, Tubal Ligation Additional Past Surgical History / Comment(s): carpal tunnel Past Anesthesia/Blood Transfusion Reactions: No Reported Reaction Past Psychological History: Depression Smoking Status: Never smoker Past Alcohol Use History: None Reported Past Drug Use History: None Reported - Past Family History Father Family Medical History: Cancer Additional Family Medical History / Comment(s): from pancreatic cancer Mother Family Medical History: Congestive Heart Failure (CHF), Diabetes Mellitus, Dialysis Additional Family Medical History / Comment(s): from CHF General Exam Limitations: no limitations General appearance: alert, in no apparent distress Head exam: Present: atraumatic Eye exam: Present: normal appearance, PERRL ENT exam: Present: mucous membranes dry Neck exam: Present: normal inspection Respiratory exam: Present: normal lung sounds bilaterally Cardiovascular Exam: Present: regular rate, normal rhythm GI/Abdominal exam: Present: soft. Absent: distended, tenderness, guarding Extremities exam: Present: normal inspection. Absent: pedal edema, calf tenderness Neurological exam: Present: alert Psychiatric exam: Present: normal affect, normal mood Skin exam: Present: normal color Course Vital Signs 02/26/19 02/26/19 12:11 15:10 Temperature 97.7 F 98.1 F Pulse Rate 92 91 Respiratory 22 18 Rate Blood Pressure 145/80 126/84 O2 Sat by Pulse 97 100 Oximetry EKG Findings - EKG Comments: EKG Findings:: Normal sinus rhythm 89. LA 196. QRS 94. QT 400. QTc 46. Normal axis. Normal QRS. No acute ST change. Medical Decision Making - Medical Decision Making Patient reevaluated and resting comfortably in bed. Patient does feel better. Patient was able to tolerate oral intake. Case was discussed with Dr. Guy, covering for Dr. Bojorquez including patient's history and exam and previous history and results including x-ray.. He does recommend a dose of lactulose and otherwise is comfortable with outpatient discharge. Follow-up with Dr. Bojorquez is recommended in the beginning of the week. Patient and family are updated regarding this. - Lab Data Result diagrams: 02/26/19 12:55 02/26/19 12:55 Lab Results 02/26/19 02/26/19 02/26/19 Range/Units 12:55 12:55 13:50 WBC 11.0 H (3.8-10.6) k/uL RBC 3.99 (3.80-5.40) m/uL Hgb 11.1 L (11.4-16.0) gm/dL Hct 34.5 (34.0-46.0) % MCV 86.4 (80.0-100.0) fL MCH 27.7 (25.0-35.0) pg MCHC 32.1 (31.0-37.0) g/dL RDW 14.7 (11.5-15.5) % Plt Count 215 (150-450) k/uL Neutrophils % 77 % Lymphocytes % 13 % Monocytes % 6 % Eosinophils % 3 % Basophils % 1 % Neutrophils # 8.4 H (1.3-7.7) k/uL Lymphocytes # 1.4 (1.0-4.8) k/uL Monocytes # 0.7 (0-1.0) k/uL Eosinophils # 0.3 (0-0.7) k/uL Basophils # 0.1 (0-0.2) k/uL Sodium 133 L (137-145) mmol/L Potassium 4.9 (3.5-5.1) mmol/L Chloride 93 L (98-107) mmol/L Carbon Dioxide 31 H (22-30) mmol/L Anion Gap 9 mmol/L BUN 14 (7-17) mg/dL Creatinine 0.53 (0.52-1.04) mg/dL Est GFR (CKD-EPI)AfAm >90 (>60 ml/min/1.73 sqM) Est GFR (CKD-EPI)NonAf >90 (>60 ml/min/1.73 sqM) Glucose 95 (74-99) mg/dL Calcium 9.1 (8.4-10.2) mg/dL Total Bilirubin 0.4 (0.2-1.3) mg/dL AST 29 (14-36) U/L ALT 25 (9-52) U/L Alkaline Phosphatase 82 (38-126) U/L Troponin I (0.000-0.034) ng/mL Total Protein 7.1 (6.3-8.2) g/dL Albumin 3.9 (3.5-5.0) g/dL Amylase 41 (30-110) U/L Lipase 93 (23-300) U/L Urine Color Yellow Urine Appearance Turbid H (Clear) Urine pH 8.5 H (5.0-8.0) Ur Specific [place] 1.016 (1.001-1.035) Urine Protein 1+ H (Negative) Urine Glucose (UA) Negative (Negative) Urine Ketones Negative (Negative) Urine Blood Negative (Negative) Urine Nitrite Positive H (Negative) Urine Bilirubin Negative (Negative) Urine Urobilinogen <2.0 (<2.0) mg/dL Ur Leukocyte Esterase Large H (Negative) Urine RBC 29 H (0-5) /hpf Urine WBC 12 H (0-5) /hpf Ur Squamous Epith Cells 1 (0-4) /hpf Amorphous Sediment Rare H (None) /hpf 02/26/19 Range/Units 13:55 WBC (3.8-10.6) k/uL RBC (3.80-5.40) m/uL Hgb (11.4-16.0) gm/dL Hct (34.0-46.0) % MCV (80.0-100.0) fL MCH (25.0-35.0) pg MCHC (31.0-37.0) g/dL RDW (11.5-15.5) % Plt Count (150-450) k/uL Neutrophils % % Lymphocytes % % Monocytes % % Eosinophils % % Basophils % % Neutrophils # (1.3-7.7) k/uL Lymphocytes # (1.0-4.8) k/uL Monocytes # (0-1.0) k/uL Eosinophils # (0-0.7) k/uL Basophils # (0-0.2) k/uL Sodium (137-145) mmol/L Potassium (3.5-5.1) mmol/L Chloride (98-107) mmol/L Carbon Dioxide (22-30) mmol/L Anion Gap mmol/L BUN (7-17) mg/dL Creatinine (0.52-1.04) mg/dL Est GFR (CKD-EPI)AfAm (>60 ml/min/1.73 sqM) Est GFR (CKD-EPI)NonAf (>60 ml/min/1.73 sqM) Glucose (74-99) mg/dL Calcium (8.4-10.2) mg/dL Total Bilirubin (0.2-1.3) mg/dL AST (14-36) U/L ALT (9-52) U/L Alkaline Phosphatase (38-126) U/L Troponin I <0.012 (0.000-0.034) ng/mL Total Protein (6.3-8.2) g/dL Albumin (3.5-5.0) g/dL Amylase (30-110) U/L Lipase (23-300) U/L Urine Color Urine Appearance (Clear) Urine pH (5.0-8.0) Ur Specific [place] (1.001-1.035) Urine Protein (Negative) Urine Glucose (UA) (Negative) Urine Ketones (Negative) Urine Blood (Negative) Urine Nitrite (Negative) Urine Bilirubin (Negative) Urine Urobilinogen (<2.0) mg/dL Ur Leukocyte Esterase (Negative) Urine RBC (0-5) /hpf Urine WBC (0-5) /hpf Ur Squamous Epith Cells (0-4) /hpf Amorphous Sediment (None) /hpf - Radiology Data Radiology results: image reviewed (Abdominal x-ray shows colonic fecal impaction dilation up to 11.1 cm is seen on previous exam in 2016.) Disposition Clinical Impression: Vomiting Disposition: HOME SELF-CARE Condition: Stable Instructions (If sedation given, give patient instructions): Acute Nausea and Vomiting (ED) Additional Instructions: Please follow-up with primary care physician and Dr. Bojorquez in the beginning of the week. Return for increased vomiting, abdominal pain, fevers, worsening symptoms or other concerns. Prescriptions: Ondansetron Odt [Zofran Odt] 4 mg PO Q8HR PRN #10 tab PRN Reason: Nausea Is patient prescribed a controlled substance at d/c from ED?: No Referrals: Zita Barboza MD [Primary Care Provider] - 1-2 days Time of Disposition: 16:06
--- NOTE | 2019-02-26 13:42 | XR ---
EXAMINATION TYPE: XR KUB DATE OF EXAM: 02/26/2019 1:28 PM CLINICAL HISTORY: Abdominal pain TECHNIQUE: Single supine KUB image of the abdomen is obtained. COMPARISON: 11/11/2015. FINDINGS: The right hemicolon is dilated with large degree fecal burden. The entirety of the colon is not seen given patient body habitus. Lung bases are well aerated. High density stool is present with in the sigmoid colon relating to ingested radiopaque material. No discrete dilated small bowel or pne umoperitoneum. Osseous structures are grossly intact. IMPRESSION: Colonic fecal impaction with dilated colon up to 11.1 cm, as seen on the exam of 11/11/2015 .
[2019-02-26 13:50] LABS: Basophils # (A) 0.1 k/uL (0-0.2); Basophils % (A) 1 %; Eosinophils # (A) 0.3 k/uL (0-0.7); Eosinophils % (A) 3 %; HCT 34.5 % (34.0-46.0); HGB 11.1 gm/dL (11.4-16.0); Lymphocytes # (A) 1.4 k/uL (1.0-4.8); Lymphocytes % (A) 13 %; MCH 27.7 pg (25.0-35.0); MCHC 32.1 g/dL (31.0-37.0); MCV 86.4 fL (80.0-100.0); Monocytes # (A) 0.7 k/uL (0-1.0); Monocytes % (A) 6 %; Neutrophils # (A) 8.4 k/uL (1.3-7.7); Neutrophils % (A) 77 %; Platelet Count 215 k/uL (150-450); RBC 3.99 m/uL (3.80-5.40); RDW 14.7 % (11.5-15.5)
[2019-02-26 14:00] LABS: ALT 25 U/L (9-52); AST 29 U/L (14-36); African American GFR (CKD) >90 (>60 ml/min/1.73 sqM); Albumin 3.9 g/dL (3.5-5.0); Alkaline Phosphatase 82 U/L (38-126); Amylase 41 U/L (30-110); Anion Gap 9 mmol/L; Blood Urea Nitrogen 14 mg/dL (7-17); Calcium 9.1 mg/dL (8.4-10.2); Carbon Dioxide 31 mmol/L (22-30); Chloride 93 mmol/L (98-107); Glucose 95 mg/dL (74-99); Lipase 93 U/L (23-300); Potassium 4.9 mmol/L (3.5-5.1); Sodium 133 mmol/L (137-145); Total Bilirubin 0.4 mg/dL (0.2-1.3); Total Protein 7.1 g/dL (6.3-8.2)
[2019-02-26 14:10] LABS: Amorphous Sediment,Urine Rare /hpf; Appearance,Urine Turbid (Clear); Bilirubin,Urine Negative (Negative); Blood,Urine Negative (Negative); Color,Urine Yellow; Glucose,Urine (UA) Negative (Negative); Ketones,Urine Negative (Negative); Leukocyte Esterase,Urine Large (Negative); Nitrite,Urine Positive (Negative); PH, Urine 8.5 (5.0-8.0); Protein,Urine 1+ (Negative); RBC,Urine 29 /hpf (0-5); Specific Gravity,Urine 1.016 (1.001-1.035); Squamous Epithelial Cell,Urine 1 /hpf (0-4); Urobilinogen,Urine <2.0 mg/dL (<2.0); WBC,Urine 12 /hpf (0-5)
[2019-02-26 15:11] VITALS: BP 126/84; PULSE 91; RESP 18; TEMP 98.1
[2019-02-26] MEDS ORDERED: LACTULOSE 20 GM/30 ML CUP PO ONE (16:04)
== END 2019-02-26 16:08 | disposition home or self-care (01) ==
LOC: EC 12:07
DX: R11.2 Nausea with vomiting, unspecified (principal); R19.7 Diarrhea, unspecified; E78.5 Hyperlipidemia, unspecified; E11.9 Type 2 diabetes mellitus without complications; I25.10 Atherosclerotic heart disease of native coronary artery without angina pectoris; J45.909 Unspecified asthma, uncomplicated; G47.33 Obstructive sleep apnea (adult) (pediatric); F32.9 Major depressive disorder, single episode, unspecified; E66.01 Morbid (severe) obesity due to excess calories; Z68.41 Body mass index [BMI] 40.0-44.9, adult; I10 Essential (primary) hypertension; Z79.4 Long term (current) use of insulin; Z79.82 Long term (current) use of aspirin; Z79.899 Other long term (current) drug therapy; Z87.440 Personal history of urinary (tract) infections; Z86.14 Personal history of Methicillin resistant Staphylococcus aureus infection; Z98.51 Tubal ligation status
CPT/HCPCS: 36415; 93005; 80053; 82150; 83690; 84484; 85025; 81001; 87086; 74018; 99284; 96374; 96375; 96361 ×2; J2405

== ENCOUNTER 2019-09-05 23:56 | Emergency (ER) | payer MEDICARE ==
[2019-09-06] MEDS ORDERED: SODIUM CHLORIDE 0.9% 500 ML 500 ML IV STA (00:13)
--- NOTE | 2019-09-06 00:48 | ED ---
General Adult HPI - General Chief complaint: Nausea/Vomiting/Diarrhea Stated complaint: Vomiting Time Seen by Provider: 09/06/19 00:04 Source: patient, RN notes reviewed, old records reviewed Mode of arrival: wheelchair Limitations: no limitations - History of Present Illness Initial comments: 64-year-old female patient with past history significant for obesity, neuro degenerative condition, colostomy due to fall this 5 years ago, chronic immobility presents to ED for chief complaint of nausea and vomiting. Patient reports this began earlier today. Had approximately 2 episodes of nausea and vomiting in morning, had approximately 2 more prior to presentation to emergency department report date didn't appear to be more dark in nature. Denies any b right red blood. Normal stool. Patient denies any pain at this time. Denies any other complaints. Systemic: Pt denies fatigue, fever/chills, rash. Pt denies weakness, night sweats, weight loss. Neuro: Pt denies headache, visual disturbances, syncope or pre-syncope. HEENT: Pt denies ocular discharge or irritation, otalgia, rhinorrhea, pharyngitis or notable lymphadenopathy. Cardiopulmonary: Pt denies chest pain, SOB, heart palpitations, dyspnea on exertion. Abdominal/GI: Pt denies abdominal pain, /d. : Pt denies dysuria, burning w/ urination, frequency/urgency. Denies new onset urinary or bowel incontinence. MSK: Pt denies myalgia, loss of strength or function in extremities. Neuro: Pt denies new onset weakness, paresthesias. - Related Data Home Medications Medication Instructions Recorded Confirmed Aspirin 81 mg PO DAILY 11/10/15 02/26/19 Atorvastatin Calcium [Lipitor] 20 mg PO DAILY 11/10/15 02/26/19 Budesonide [Pulmicort] 0.5 mg INHALATION RT-DAILY 11/10/15 02/26/19 Imipramine [Tofranil] 25 mg PO BID 11/10/15 02/26/19 [place]-3 Fatty Acids/Fish Oil [Fish 1 cap PO DAILY 11/10/15 02/26/19 Oil 1,000 mg Softgel] PARoxetine HCL [Paxil] 20 mg PO DAILY 11/10/15 02/26/19 metFORMIN HCL [Glucophage] 1,000 mg PO BID 11/10/15 02/26/19 Albuterol Nebulized [Ventolin 2.5 mg INHALATION RT-QID 11/11/15 02/26/19 Nebulized] Oxybutynin Xl [Ditropan XL] 5 mg PO DAILY 11/11/15 02/26/19 INSULIN LISPRO (humaLOG) [humaLOG] See Protocol SQ AC-TID 09/07/16 02/26/19 L.acidoph,Paracasei, B.lactis 1 cap PO DAILY 09/07/16 02/26/19 [Probiotic] Cholecalciferol [Vitamin D3 (25 1,000 unit PO DAILY 02/26/19 02/26/19 Mcg = 1000 Iu)] Insulin Glargine [Lantus] 45 unit SQ HS 02/26/19 02/26/19 Previous Rx's Medication Instructions Recorded Ondansetron Odt [Zofran Odt] 4 mg PO Q8HR PRN #10 tab 02/26/19 Cephalexin [Keflex] 500 mg PO Q6HR 10 Days #40 cap 09/06/19 Allergies Allergy/AdvReac Type Severity Reaction Status Date / Time No Known Allergies Allergy Verified 09/06/19 00:03 Review of Systems ROS Statement: Those systems with pertinent positive or pertinent negative responses have been documented in the HPI. ROS Other: All systems not noted in ROS Statement are negative. Past Medical History Past Medical History: Coronary Artery Disease (CAD), Diabetes Mellitus, Hyperlipidemia, Hypertension, Sleep Apnea/CPAP/BIPAP Additional Past Medical History / Comment(s): Morbid obesity, olivopontine and cerebellar degeneration, diabetes mellitus, chronic constipation, chronic urinary incontinence and the patient has a chronic Humphrey catheter in place with previous history of frequent urinary tract infections, difficulty with mobility and the patient was around with the help of a motorized scooter, obstructive sleep apnea, bronchial asthma, chronic hydronephrosis of the kidneys, hyperlipidemia, coronary artery disease, hypertension History of Any Multi-Drug Resistant Organisms: C-DIFF, MRSA Date of last positivie culture/infection: 11/2015 MDRO Source:: c-diff, mrsa 2011 in blood Past Surgical History: No Surgical Hx Reported, Bowel Resection, Tubal Ligation Additional Past Surgical History / Comment(s): carpal tunnel Past Anesthesia/Blood Transfusion Reactions: No Reported Reaction Past Psychological History: Depression Smoking Status: Never smoker Past Alcohol Use History: None Reported Past Drug Use History: None Reported - Past Family History Father Family Medical History: Cancer Additional Family Medical History / Comment(s): from pancreatic cancer Mother Family Medical History: Congestive Heart Failure (CHF), Diabetes Mellitus, Dialysis Additional Family Medical History / Comment(s): from CHF General Exam - General Exam Comments Initial Comments: Constitutional: NAD, AOX3, Pt has pleasant affect. HEENT: NC/AT, trachea midline, neck supple, no lymphadenopathy. Posterior pharynx non erythematous, without exudates. External ears appear normal, without discharge. Mucous membranes moist. Eyes PERRLA, EOM intact. There is no scleral icterus. No pallor noted. Cardiopulmonary: RRR, no murmurs, rubs or gallops, no JVD noted. Lungs CTAB in anterior and posterior dee. No peripheral edema. Abdominal exam: Abdomen soft and non-distended. Abdomen non-tender to palpation in all 4 quadrants. Bowel sounds active in LLQ. No hepatosplenomegaly. No ecchymosis Neuro: CN II-XII grossly intact. No nuchal rigidity. No raccon eyes, no marie sign, no hemotympanum. No cervical spinal tenderness. MSK: No posterior calf tenderness bilaterally, homans sign negative bilaterally. Posterior tibialis and radial pulse +2 bilaterally. Sensation intact in upper and lower extremities. Full active ROM in upper and lower extremities, 5/5 stregnth. Limitations: no limitations Course Vital Signs 09/06/19 09/06/19 09/06/19 00:01 00:57 02:03 Temperature 98.0 F Pulse Rate 109 H 100 100 Respiratory 20 20 20 Rate Blood Pressure 94/60 122/71 121/77 O2 Sat by Pulse 100 99 100 Oximetry 09/06/19 03:46 Temperature 98 F Pulse Rate 80 Respiratory 18 Rate Blood Pressure 132/80 O2 Sat by Pulse 100 Oximetry Medical Decision Making - Medical Decision Making 64-year-old female patient with past history significant for obesity, neuro degenerative condition, colostomy due to fall this 5 years ago, chronic immobility presents to ED for chief complaint of nausea and vomiting. Patient reports this began earlier today. Had approximately 2 episodes of nausea and vomiting in morning, had approximately 2 more prior to presentation to emergency department report date didn't appear to be more dark in nature. Denies any bright red blood. Normal stool. Patient denies any pain at this time. Denies any other complaints. Patient vital signs are stable, afebrile. Physical exam did not display acute pathology. Laboratory investigations revealed mild cy tosis with left shift, hypoglycemia, patient does have history of type 2 diabetes. Lactic acid 1.8, UA didn't display infection. Influenza is negative. Chest x-ray is negative. Patient indwelling urinary catheter was removed and replaced. Urine was cultured. Patient was administered fibrinoid is normal saline, 2 g Rocephin. Patient discharged with [facility] patient's pharmacy. We'll close outpatient follow-up and return precautions. Case discussed with Dr. Zarate. - Lab Data Result diagrams: 09/06/19 00:16 09/06/19 00:16 Lab Results 09/06/19 09/06/19 09/06/19 Range/Units 00:16 00:16 00:16 WBC 10.8 H (3.8-10.6) k/uL RBC 4.08 (3.80-5.40) m/uL Hgb 11.4 (11.4-16.0) gm/dL Hct 36.0 (34.0-46.0) % MCV 88.4 (80.0-100.0) fL MCH 28.0 (25.0-35.0) pg MCHC 31.7 (31.0-37.0) g/dL RDW 14.4 (11.5-15.5) % Plt Count 234 (150-450) k/uL Neutrophils % 80 % Lymphocytes % 11 % Monocytes % 5 % Eosinophils % 3 % Basophils % 1 % Neutrophils # 8.7 H (1.3-7.7) k/uL Lymphocytes # 1.1 (1.0-4.8) k/uL Monocytes # 0.5 (0-1.0) k/uL Eosinophils # 0.3 (0-0.7) k/uL Basophils # 0.1 (0-0.2) k/uL Sodium 137 (137-145) mmol/L Potassium 4.8 (3.5-5.1) mmol/L Chloride 98 (98-107) mmol/L Carbon Dioxide 32 H (22-30) mmol/L Anion Gap 7 mmol/L BUN 18 H (7-17) mg/dL Creatinine 0.74 (0.52-1.04) mg/dL Est GFR (CKD-EPI)AfAm >90 (>60 ml/min/1.73 sqM) Est GFR (CKD-EPI)NonAf 88 (>60 ml/min/1.73 sqM) Glucose 209 H (74-99) mg/dL Plasma Lactic Acid George (0.7-2.0) mmol/L Calcium 9.5 (8.4-10.2) mg/dL Total Bilirubin 0.3 (0.2-1.3) mg/dL AST 26 (14-36) U/L ALT 20 (4-34) U/L Alkaline Phosphatase 106 (38-126) U/L Total Protein 7.1 (6.3-8.2) g/dL Albumin 3.9 (3.5-5.0) g/dL Lipase 141 (23-300) U/L Urine Color Urine Appearance (Clear) Urine pH (5.0-8.0) Ur Specific [place] (1.001-1.035) Urine Protein (Negative) Urine Glucose (UA) (Negative) Urine Ketones (Negative) Urine Blood (Negative) Urine Nitrite (Negative) Urine Bilirubin (Negative) Urine Urobilinogen (<2.0) mg/dL Ur Leukocyte Esterase (Negative) Urine RBC (0-5) /hpf Urine WBC (0-5) /hpf Ur Squamous Epith Cells (0-4) /hpf Urine Bacteria (None) /hpf Influenza Type A RNA Not Detected (Not Detectd) Influenza Type B (PCR) Not Detected (Not Detectd) 09/06/19 09/06/19 Range/Units 01:10 01:34 WBC (3.8-10.6) k/uL RBC (3.80-5.40) m/uL Hgb (11.4-16.0) gm/dL Hct (34.0-46.0) % MCV (80.0-100.0) fL MCH (25.0-35.0) pg MCHC (31.0-37.0) g/dL RDW (11.5-15.5) % Plt Count (150-450) k/uL Neutrophils % % Lymphocytes % % Monocytes % % Eosinophils % % Basophils % % Neutrophils # (1.3-7.7) k/uL Lymphocytes # (1.0-4.8) k/uL Monocytes # (0-1.0) k/uL Eosinophils # (0-0.7) k/uL Basophils # (0-0.2) k/uL Sodium (137-145) mmol/L Potassium (3.5-5.1) mmol/L Chloride (98-107) mmol/L Carbon Dioxide (22-30) mmol/L Anion Gap mmol/L BUN (7-17) mg/dL Creatinine (0.52-1.04) mg/dL Est GFR (CKD-EPI)AfAm (>60 ml/min/1.73 sqM) Est GFR (CKD-EPI)NonAf (>60 ml/min/1.73 sqM) Glucose (74-99) mg/dL Plasma Lactic Acid George 1.8 (0.7-2.0) mmol/L Calcium (8.4-10.2) mg/dL Total Bilirubin (0.2-1.3) mg/dL AST (14-36) U/L ALT (4-34) U/L Alkaline Phosphatase (38-126) U/L Total Protein (6.3-8.2) g/dL Albumin (3.5-5.0) g/dL Lipase (23-300) U/L Urine Color Yellow Urine Appearance Turbid H (Clear) Urine pH 8.5 H (5.0-8.0) Ur Specific [place] 1.018 (1.001-1.035) Urine Protein 3+ H (Negative) Urine Glucose (UA) Negative (Negative) Urine Ketones Negative (Negative) Urine Blood Negative (Negative) Urine Nitrite Positive H (Negative) Urine Bilirubin Negative (Negative) Urine Urobilinogen <2.0 (<2.0) mg/dL Ur Leukocyte Esterase Large H (Negative) Urine RBC 34 H (0-5) /hpf Urine WBC 159 H (0-5) /hpf Ur Squamous Epith Cells 10 H (0-4) /hpf Urine Bacteria Many H (None) /hpf Influenza Type A RNA (Not Detectd) Influenza Type B (PCR) (Not Detectd) Disposition Clinical Impression: UTI (urinary tract infection), Nausea and vomiting Disposition: HOME SELF-CARE Condition: Stable Instructions (If sedation given, give patient instructions): Urinary Tract Infection in Women (ED), Acute Nausea and Vomiting (ED) Additional Instructions: Take antibiotics as directed. Follow-up with primary care provider tomorrow. Return to ER if condition worsens. Prescriptions: Cephalexin [Keflex] 500 mg PO Q6HR 10 Days #40 cap Is patient prescribed a controlled substance at d/c from ED?: No Referrals: Zita Barboza MD [Primary Care Provider] - 1-2 days
--- NOTE | 2019-09-06 01:28 | XR ---
EXAMINATION TYPE: XR chest 2V DATE OF EXAM: 09/06/2019 COMPARISON: September 10, 2016 HISTORY: Short of breath. Abdominal pain. TECHNIQUE: 2 views FINDINGS: Heart and mediastinum are normal. Lungs are clear. There is no pleural effusion. Bony thora x is intact. There is no heart failure. IMPRESSION: No active cardiopulmonary disease. No change.
[2019-09-06 01:44] LABS: Basophils # (A) 0.1 k/uL (0-0.2); Basophils % (A) 1 %; Eosinophils # (A) 0.3 k/uL (0-0.7); Eosinophils % (A) 3 %; HGB 11.4 gm/dL (11.4-16.0); Lymphocytes # (A) 1.1 k/uL (1.0-4.8); Lymphocytes % (A) 11 %; MCHC 31.7 g/dL (31.0-37.0); MCV 88.4 fL (80.0-100.0); Mean Platelet Volume 9.1; Monocytes # (A) 0.5 k/uL (0-1.0); Monocytes % (A) 5 %; Neutrophils # (A) 8.7 k/uL (1.3-7.7); Neutrophils % (A) 80 %; Platelet Count 234 k/uL (150-450); RBC 4.08 m/uL (3.80-5.40); RDW 14.4 % (11.5-15.5); WBC 10.8 k/uL (3.8-10.6)
[2019-09-06 01:49] LABS: Appearance,Urine Turbid (Clear); Bacteria,Urine Many /hpf; Bilirubin,Urine Negative (Negative); Blood,Urine Negative (Negative); Color,Urine Yellow; Glucose,Urine (UA) Negative (Negative); Ketones,Urine Negative (Negative); Leukocyte Esterase,Urine Large (Negative); Nitrite,Urine Positive (Negative); PH, Urine 8.5 (5.0-8.0); Protein,Urine 3+ (Negative); RBC,Urine 34 /hpf (0-5); Specific Gravity,Urine 1.018 (1.001-1.035); Squamous Epithelial Cell,Urine 10 /hpf (0-4); Urobilinogen,Urine <2.0 mg/dL (<2.0); WBC,Urine 159 /hpf (0-5)
[2019-09-06 01:53] LABS: ALT 20 U/L (4-34); AST 26 U/L (14-36); African American GFR (CKD) >90 (>60 ml/min/1.73 sqM); Albumin 3.9 g/dL (3.5-5.0); Alkaline Phosphatase 106 U/L (38-126); Anion Gap 7 mmol/L; Blood Urea Nitrogen 18 mg/dL (7-17); Calcium 9.5 mg/dL (8.4-10.2); Carbon Dioxide 32 mmol/L (22-30); Chloride 98 mmol/L (98-107); Glucose 209 mg/dL (74-99); Non-African American GFR(CKD) 88 (>60 ml/min/1.73 sqM); Potassium 4.8 mmol/L (3.5-5.1); Sodium 137 mmol/L (137-145); Total Bilirubin 0.3 mg/dL (0.2-1.3); Total Protein 7.1 g/dL (6.3-8.2)
[2019-09-06] MEDS ORDERED: CEPHALEXIN 500MG STARTER PACK 4 CAP BTL PO STA (03:34)
[2019-09-06] MEDS ORDERED: cefTRIAXone IN SWFI 1,000 MG/10 ML SYRINGE IVP STA (03:35)
[2019-09-06 03:47] VITALS: BP 132/80; PULSE 80; RESP 18; TEMP 98
== END 2019-09-06 03:47 | disposition home or self-care (01) ==
LOC: EC 23:56
DX: N39.0 Urinary tract infection, site not specified (principal); R11.2 Nausea with vomiting, unspecified; E11.649 Type 2 diabetes mellitus with hypoglycemia without coma; I25.10 Atherosclerotic heart disease of native coronary artery without angina pectoris; E78.5 Hyperlipidemia, unspecified; I10 Essential (primary) hypertension; E66.01 Morbid (severe) obesity due to excess calories; F32.9 Major depressive disorder, single episode, unspecified; G47.33 Obstructive sleep apnea (adult) (pediatric); J45.909 Unspecified asthma, uncomplicated; Z79.4 Long term (current) use of insulin; Z79.51 Long term (current) use of inhaled steroids; Z79.82 Long term (current) use of aspirin; Z79.899 Other long term (current) drug therapy; Z68.38 Body mass index [BMI] 38.0-38.9, adult; Z86.14 Personal history of Methicillin resistant Staphylococcus aureus infection; Z87.448 Personal history of other diseases of urinary system; Z93.3 Colostomy status; Z90.49 Acquired absence of other specified parts of digestive tract; Z96.0 Presence of urogenital implants; Z99.89 Dependence on other enabling machines and devices
CPT/HCPCS: 99284; 96365; 96375; 96361; 36415; 80053; 83605; 83690; 85025; 81001; 87086; 87077; 87186; 87502; 71046; J0696

== ENCOUNTER 2019-10-07 23:37 | Inpatient (IN) | payer MEDICARE ==
[2019-10-07] MEDS ORDERED: ACETAMINOPHEN TAB 500 MG TAB PO STA (23:57)
[2019-10-08 00:10] LABS: Glucose,Whole Blood 254 mg/dL (75-99)
[2019-10-08] MEDS: SODIUM CHLORIDE 0.9% 500 ML 500 ML IV SCH ×3 (00:17→01:22)
[2019-10-08 00:25] LABS: Basophils # (A) 0.1 k/uL (0-0.2); Basophils % (A) 0 %; Eosinophils # (A) 0.2 k/uL (0-0.7); Eosinophils % (A) 2 %; HCT 36.8 % (34.0-46.0); HGB 11.4 gm/dL (11.4-16.0); Lymphocytes # (A) 0.5 k/uL (1.0-4.8); Lymphocytes % (A) 5 %; MCHC 30.9 g/dL (31.0-37.0); MCV 90.3 fL (80.0-100.0); Mean Platelet Volume 8.8; Monocytes # (A) 0.3 k/uL (0-1.0); Monocytes % (A) 3 %; Neutrophils # (A) 9.1 k/uL (1.3-7.7); Neutrophils % (A) 88 %; Platelet Count 214 k/uL (150-450); RBC 4.08 m/uL (3.80-5.40); RDW 14.2 % (11.5-15.5); WBC 10.3 k/uL (3.8-10.6)
[2019-10-08 00:33] LABS: ALT 50 U/L (4-34); AST 63 U/L (14-36); African American GFR (CKD) >90 (>60 ml/min/1.73 sqM); Alkaline Phosphatase 107 U/L (38-126); Anion Gap 11 mmol/L; Blood Urea Nitrogen 16 mg/dL (7-17); Calcium 8.7 mg/dL (8.4-10.2); Carbon Dioxide 28 mmol/L (22-30); Chloride 99 mmol/L (98-107); Glucose 206 mg/dL (74-99); Non-African American GFR(CKD) >90 (>60 ml/min/1.73 sqM); Potassium 4.4 mmol/L (3.5-5.1); Sodium 138 mmol/L (137-145); Total Bilirubin 0.5 mg/dL (0.2-1.3); Total Protein 7.5 g/dL (6.3-8.2)
[2019-10-08 00:42] LABS: Amorphous Sediment,Urine Rare /hpf; Appearance,Urine Cloudy (Clear); Bilirubin,Urine Negative (Negative); Blood,Urine Small (Negative); Budding Yeast,Urine Moderate /hpf; Calcium Oxalate Crystals,Urine Many /hpf; Color,Urine Yellow; Glucose,Urine (UA) Negative (Negative); Ketones,Urine Negative (Negative); Leukocyte Esterase,Urine Large (Negative); Mucus,Urine Rare /hpf; Nitrite,Urine Negative (Negative); Protein,Urine 2+ (Negative); RBC,Urine 18 /hpf (0-5); Specific Gravity,Urine 1.023 (1.001-1.035); Squamous Epithelial Cell,Urine 1 /hpf (0-4); WBC,Urine 77 /hpf (0-5)
--- NOTE | 2019-10-08 00:53 | XR ---
EXAMINATION TYPE: XR chest 2V DATE OF EXAM: 10/08/2019 COMPARISON: 09/06/2019 HISTORY: Abdominal pain fever TECHNIQUE: FINDINGS: Heart is enlarged. There is mild pulmonary congestion. Exam is limited by patient's size. T here are chest leads. I see no pulmonary consolidation. IMPRESSION: Cardiomegaly. Pulmonary vascularity increased compared to last exam. Minimal heart failur e is possible.
[2019-10-08 00:54] LABS: INR 0.9 (<1.2); Partial Thromboplastin Time 27.1 sec (22.0-30.0); Prothrombin Time 9.6 sec (9.0-12.0)
[2019-10-08] MEDS ORDERED: IBUPROFEN 400 MG TAB PO PRN (00:57)
[2019-10-08] MEDS ORDERED: ACETAMINOPHEN TAB 325 MG TAB PO PRN (00:57)
[2019-10-08] MEDS ORDERED: NALOXONE 0.4 MG/ML 1 ML VIAL IV PRN (00:57)
--- NOTE | 2019-10-08 01:05 | ED ---
General Adult HPI - General Source: family Mode of arrival: wheelchair Limitations: no limitations <Tiffanie Akins - Last Filed: 10/08/19 04:15> <Ayleen Zarate - Last Filed: 10/09/19 21:28> - General Chief complaint: Fever Stated complaint: Altered Mental Status Time Seen by Provider: 10/07/19 23:45 - History of Present Illness Initial comments: 64-year-old female patient presents to the emergency department today for evaluation of fever and altered mental status. Patient has been treated for urinary tract infection and was recently switched to penicillin oral. Family member states that this evening she was very tired and cannot stay awake. States that she was confused and saying things that didn't make sense. States the patient has been very weak as well. Patient does have a chronic indwelling Humphrey catheter. Family states that she's had this for the last 10-15 years due to urinary incontinence. They state that she does have a cough that is chronic due to a chronic underlying lung disease. They deny any nasal congestion or drainage. Patient denies any sore throat. Denies any abdominal pain, nausea, vomiting, constipation, or diarrhea. Patient denies any recent rash, shortness b reath, chest pain, back pain, numbness, tingling, dizziness, weakness, hematuria, dysuria, urinary urgency, urinary frequency, headache, visual changes, or any other complaints. (Tiffanie Akins) - Related Data Home Medications Medication Instructions Recorded Confirmed Aspirin 81 mg PO DAILY 11/10/15 10/08/19 Atorvastatin Calcium [Lipitor] 20 mg PO DAILY 11/10/15 10/08/19 Budesonide [Pulmicort] 0.5 mg INHALATION RT-DAILY 11/10/15 10/08/19 Imipramine [Tofranil] 25 mg PO BID 11/10/15 10/08/19 [place]-3 Fatty Acids/Fish Oil [Fish 1 cap PO DAILY 11/10/15 10/08/19 Oil 1,000 mg Softgel] PARoxetine HCL [Paxil] 20 mg PO DAILY 11/10/15 10/08/19 Albuterol Nebulized [Ventolin 2.5 mg INHALATION RT-QID 11/11/15 10/08/19 Nebulized] Oxybutynin Xl [Ditropan XL] 5 mg PO DAILY 11/11/15 10/08/19 INSULIN LISPRO (humaLOG) [humaLOG] See Protocol SQ AC-TID 09/07/16 10/08/19 L.acidoph,Paracasei, B.lactis 1 cap PO DAILY 09/07/16 10/08/19 [Probiotic] Insulin Glargine,Hum.rec.anlog 45 unit SQ DAILY 10/08/19 10/08/19 [Lantus Solostar] Lactulose 10 gm PO DAILY 10/08/19 10/08/19 Nitrofurantoin Monohyd/M-Cryst 100 mg PO BID 10/08/19 10/08/19 [Macrobid] Penicillin V Potassium [Pen Vee K] 250 mg PO TID 10/08/19 10/08/19 metFORMIN HCL 1,000 mg PO BID 10/08/19 10/08/19 Allergies Allergy/AdvReac Type Severity Reaction Status Date / Time No Known Allergies Allergy Verified 10/08/19 08:54 Review of Systems ROS Other: All systems not noted in ROS Statement are negative. <Tiffanie Akins M - Last Filed: 10/08/19 04:15> ROS Other: All systems not noted in ROS Statement are negative. <Ayleen Zarate - Last Filed: 10/09/19 21:28> ROS Statement: Those systems with pertinent positive or pertinent negative responses have been documented in the HPI. Past Medical History Past Medical History: Coronary Artery Disease (CAD), Diabetes Mellitus, Hyperlipidemia, Hypertension, Sleep Apnea/CPAP/BIPAP Additional Past Medical History / Comment(s): Morbid obesity, olivopontine and cerebellar degeneration, diabetes mellitus, chronic constipation, chronic urinary incontinence and the patient has a chronic Humphrey catheter in place with previous history of frequent urinary tract infections, difficulty with mobility and the patient was around with the help of a motorized scooter, obstructive sleep apnea, bronchial asthma, chronic hydronephrosis of the kidneys, hyperlipidemia, coronary artery disease, hypertension History of Any Multi-Drug Resistant Organisms: C-DIFF, MRSA Date of last positivie culture/infection: 11/2015 MDRO Source:: c-diff, mrsa 2011 in blood Past Surgical History: No Surgical Hx Reported, Bowel Resection, Tubal Ligation Additional Past Surgical History / Comment(s): carpal tunnel Past Anesthesia/Blood Transfusion Reactions: No Reported Reaction Past Psychological History: Depression Smoking Status: Never smoker Past Alcohol Use History: None Reported Past Drug Use History: None Reported - Past Family History Father Family Medical History: Cancer Additional Family Medical History / Comment(s): from pancreatic cancer Mother Family Medical History: Congestive Heart Failure (CHF), Diabetes Mellitus, Dialysis Additional Family Medical History / Comment(s): from CHF <Tiffanie Akins Debra - Last Filed: 10/08/19 04:15> General Exam Limitations: no limitations General appearance: alert, in no apparent distress, other (Physical well- developed, well-nourished adult female patient in no acute distress. Vital signs upon presentation are temperature 102.7F, pulse 121, respirations 24, blood pressure 164/77, pulse ox 96% on room air.) Eye exam: Present: normal appearance, PERRL, EOMI. Absent: scleral icterus, conjunctival injection, periorbital swelling ENT exam: Present: normal exam, normal oropharynx, mucous membranes moist Respiratory exam: Present: normal lung sounds bilaterally. Absent: respiratory distress, wheezes, rales, rhonchi, stridor Cardiovascular Exam: Present: normal rhythm, tachycardia, normal heart sounds. Absent: systolic murmur, diastolic murmur, rubs, gallop, clicks GI/Abdominal exam: Present: soft, normal bowel sounds. Absent: distended, tenderness, guarding, rebound, rigid Neurological exam: Present: CN II-XII intact. Absent: alert (Drowsy), oriented X3 (Oriented 2) Psychiatric exam: Present: normal affect, normal mood Skin exam: Present: warm, dry, intact, normal color. Absent: rash <Tiffanie Akins M - Last Filed: 10/08/19 04:15> Course <Tiffanie Akins Debra - Last Filed: 10/08/19 04:15> Vital Signs 10/07/19 10/08/19 10/08/19 23:41 00:30 01:00 Temperature 102.7 F H 100.7 F H Pulse Rate 121 H 121 H 120 H Respiratory 24 20 26 H Rate Blood Pressure 164/77 155/60 147/86 O2 Sat by Pulse 96 97 96 Oximetry 10/08/19 10/08/19 10/08/19 02:00 02:34 03:00 Temperature 99.7 F H Pulse Rate 114 H 115 H 110 H Respiratory 24 24 26 H Rate Blood Pressure 130/100 126/71 118/76 O2 Sat by Pulse 97 97 96 Oximetry 10/08/19 10/08/19 10/08/19 04:00 05:00 06:00 Temperature 98.9 F 98.8 F Pulse Rate 107 H 106 H 104 H Respiratory 24 24 20 Rate Blood Pressure 122/73 120/70 122/70 O2 Sat by Pulse 99 98 97 Oximetry 10/08/19 10/08/19 10/08/19 07:00 11:00 11:48 Temperature 98.7 F 98.2 F 98.2 F Pulse Rate 104 H 98 98 Respiratory 18 18 18 Rate Blood Pressure 118/65 109/67 109/67 O2 Sat by Pulse 97 97 97 Oximetry - Reevaluation(s) Reevaluation #1: 10/08/19 03:29 Patient is exhibiting some mild respiratory distress. She is exhibiting abdominal accessory muscle use and tachypnea. Heart rate is remaining elevated around 111 to 1:15. She required increase in her usual oxygen dosing to 5 L. Chest x-ray did show some pulmonary vascular congestion. We will add BNP at start BiPAP to decrease work of breathing. Patient will be monitored. (Tiffanie Akins) Reevaluation #2: 10/08/19 04:15 Patient doing well on BiPAP. Patient appears more relaxed. Her rate did improve somewhat. BNP was around 700. (Tiffanie Akins) EKG Findings - EKG Comments: EKG Findings:: EKG obtained at 00 22 shows sinus tachycardia with a ventricular rate of 121, MN interval 146, QRS duration 88, QT 328, QTC 465. No evidence of ST elevation or depression. <Tiffanie Akins - Last Filed: 10/08/19 04:15> Medical Decision Making - Lab Data Result diagrams: 10/08/19 00:10 10/08/19 00:10 - Radiology Data Radiology results: report reviewed, image reviewed <Tiffanie Akins - Last Filed: 10/08/19 04:15> - Lab Data Result diagrams: 10/08/19 00:10 10/08/19 00:10 <Ayleen Zarate - Last Filed: 10/09/19 21:28> - Medical Decision Making 64-year-old female patient presented to the emergency department today for erin luation of altered mental status and fever. Physical examination revealed soft nontender abdomen. Patient is drowsy and oriented 2. Patient is currently being treated with penicillin for urinary tract infection. Urinalysis does redemonstrate UTI. We will start Rocephin has she has been susceptible to this in the past. Lactic acid was elevated at 2.5 per she was given IV fluids. Chest x-ray showed mild pulmonary vascular congestion but no evidence for pneumonia. Patient did appear to be exhibiting labored breathing, abdominal [place] muscle use, tachypnea. We did start BiPAP. Patient did tolerate this well and appears to be resting more comfortably now. We will admit to the hospital for further evaluation and monitoring. (Tiffanie Akins) I personally saw and evaluated the patient, patient is septic secondary to urinary tract infection. Receiving antipyretics and IV fluids, patient uses CPAP at home and seems to have some trouble breathing here which time I recommended BiPAP. Patient's heart rate and breathing improved significantly with BiPAP. Patient stable for admission to medical floor. Patient care was discussed with admitting physician from [facility] who agrees with plan for admission, BiPAP as needed. Antibiotics for treatment of sepsis secondary urinary tract infection. (Ayleen Zarate) - Lab Data Lab Results 10/08/19 10/08/19 10/08/19 Range/Units 00:03 00:10 00:10 WBC 10.3 (3.8-10.6) k/uL RBC 4.08 (3.80-5.40) m/uL Hgb 11.4 (11.4-16.0) gm/dL Hct 36.8 (34.0-46.0) % MCV 90.3 (80.0-100.0) fL MCH 28.0 (25.0-35.0) pg MCHC 30.9 L (31.0-37.0) g/dL RDW 14.2 (11.5-15.5) % Plt Count 214 (150-450) k/uL Neutrophils % 88 % Lymphocytes % 5 % Monocytes % 3 % Eosinophils % 2 % Basophils % 0 % Neutrophils # 9.1 H (1.3-7.7) k/uL Lymphocytes # 0.5 L (1.0-4.8) k/uL Monocytes # 0.3 (0-1.0) k/uL Eosinophils # 0.2 (0-0.7) k/uL Basophils # 0.1 (0-0.2) k/uL PT (9.0-12.0) sec INR (<1.2) APTT (22.0-30.0) sec Sodium 138 (137-145) mmol/L Potassium 4.4 (3.5-5.1) mmol/L Chloride 99 (98-107) mmol/L Carbon Dioxide 28 (22-30) mmol/L Anion Gap 11 mmol/L BUN 16 (7-17) mg/dL Creatinine 0.59 (0.52-1.04) mg/dL Est GFR (CKD-EPI)AfAm >90 (>60 ml/min/1.73 sqM) Est GFR (CKD-EPI)NonAf >90 (>60 ml/min/1.73 sqM) Glucose 206 H (74-99) mg/dL POC Glucose (mg/dL) 254 H (75-99) mg/dL POC Glu Bead Filler Raven Gandhi Lactic Ac Sepsis Rflx Plasma Lactic Acid George (0.7-2.0) mmol/L Calcium 8.7 (8.4-10.2) mg/dL Total Bilirubin 0.5 (0.2-1.3) mg/dL AST 63 H (14-36) U/L ALT 50 H (4-34) U/L Alkaline Phosphatase 107 (38-126) U/L Total Protein 7.5 (6.3-8.2) g/dL Albumin 4.0 (3.5-5.0) g/dL Procalcitonin (0.02-0.09) ng/mL Urine Color Urine Appearance (Clear) Urine pH (5.0-8.0) Ur Specific [place] (1.001-1.035) Urine Protein (Negative) Urine Glucose (UA) (Negative) Urine Ketones (Negative) Urine Blood (Negative) Urine Nitrite (Negative) Urine Bilirubin (Negative) Urine Urobilinogen (<2.0) mg/dL Ur Leukocyte Esterase (Negative) Urine RBC (0-5) /hpf Urine WBC (0-5) /hpf Ur Squamous Epith Cells (0-4) /hpf Calcium Oxalate Crystal (None) /hpf Amorphous Sediment (None) /hpf Urine Mucus (None) /hpf Urine Yeast (Budding) (None) /hpf Influenza Type A RNA (Not Detectd) Influenza Type B (PCR) (Not Detectd) 10/08/19 10/08/19 10/08/19 Range/Units 00:10 00:10 00:10 WBC (3.8-10.6) k/uL RBC (3.80-5.40) m/uL Hgb (11.4-16.0) gm/dL Hct (34.0-46.0) % MCV (80.0-100.0) fL MCH (25.0-35.0) pg MCHC (31.0-37.0) g/dL RDW (11.5-15.5) % Plt Count (150-450) k/uL Neutrophils % % Lymphocytes % % Monocytes % % Eosinophils % % Basophils % % Neutrophils # (1.3-7.7) k/uL Lymphocytes # (1.0-4.8) k/uL Monocytes # (0-1.0) k/uL Eosinophils # (0-0.7) k/uL Basophils # (0-0.2) k/uL PT 9.6 (9.0-12.0) sec INR 0.9 (<1.2) APTT 27.1 (22.0-30.0) sec Sodium (137-145) mmol/L Potassium (3.5-5.1) mmol/L Chloride (98-107) mmol/L Carbon Dioxide (22-30) mmol/L Anion Gap mmol/L BUN (7-17) mg/dL Creatinine (0.52-1.04) mg/dL Est GFR (CKD-EPI)AfAm (>60 ml/min/1.73 sqM) Est GFR (CKD-EPI)NonAf (>60 ml/min/1.73 sqM) Glucose (74-99) mg/dL POC Glucose (mg/dL) (75-99) mg/dL POC Glu Bead Filler ID Lactic Ac Sepsis Rflx Plasma Lactic Acid George 2.5 H* (0.7-2.0) mmol/L Calcium (8.4-10.2) mg/dL Total Bilirubin (0.2-1.3) mg/dL AST (14-36) U/L ALT (4-34) U/L Alkaline Phosphatase (38-126) U/L Total Protein (6.3-8.2) g/dL Albumin (3.5-5.0) g/dL Procalcitonin 0.20 H (0.02-0.09) ng/mL Urine Color Urine Appearance (Clear) Urine pH (5.0-8.0) Ur Specific [place] (1.001-1.035) Urine Protein (Negative) Urine Glucose (UA) (Negative) Urine Ketones (Negative) Urine Blood (Negative) Urine Nitrite (Negative) Urine Bilirubin (Negative) Urine Urobilinogen (<2.0) mg/dL Ur Leukocyte Esterase (Negative) Urine RBC (0-5) /hpf Urine WBC (0-5) /hpf Ur Squamous Epith Cells (0-4) /hpf Calcium Oxalate Crystal (None) /hpf Amorphous Sediment (None) /hpf Urine Mucus (None) /hpf Urine Yeast (Budding) (None) /hpf Influenza Type A RNA (Not Detectd) Influenza Type B (PCR) (Not Detectd) 10/08/19 10/08/19 10/08/19 Range/Units 00:19 00:25 00:35 WBC (3.8-10.6) k/uL RBC (3.80-5.40) m/uL Hgb (11.4-16.0) gm/dL Hct (34.0-46.0) % MCV (80.0-100.0) fL MCH (25.0-35.0) pg MCHC (31.0-37.0) g/dL RDW (11.5-15.5) % Plt Count (150-450) k/uL Neutrophils % % Lymphocytes % % Monocytes % % Eosinophils % % Basophils % % Neutrophils # (1.3-7.7) k/uL Lymphocytes # (1.0-4.8) k/uL Monocytes # (0-1.0) k/uL Eosinophils # (0-0.7) k/uL Basophils # (0-0.2) k/uL PT (9.0-12.0) sec INR (<1.2) APTT (22.0-30.0) sec Sodium (137-145) mmol/L Potassium (3.5-5.1) mmol/L Chloride (98-107) mmol/L Carbon Dioxide (22-30) mmol/L Anion Gap mmol/L BUN (7-17) mg/dL Creatinine (0.52-1.04) mg/dL Est GFR (CKD-EPI)AfAm (>60 ml/min/1.73 sqM) Est GFR (CKD-EPI)NonAf (>60 ml/min/1.73 sqM) Glucose (74-99) mg/dL POC Glucose (mg/dL) (75-99) mg/dL POC Glu Bead Filler ID Lactic Ac Sepsis Rflx Y Plasma Lactic Acid George (0.7-2.0) mmol/L Calcium (8.4-10.2) mg/dL Total Bilirubin (0.2-1.3) mg/dL AST (14-36) U/L ALT (4-34) U/L Alkaline Phosphatase (38-126) U/L Total Protein (6.3-8.2) g/dL Albumin (3.5-5.0) g/dL Procalcitonin (0.02-0.09) ng/mL Urine Color Yellow Urine Appearance Cloudy H (Clear) Urine pH 6.0 (5.0-8.0) Ur Specific [place] 1.023 (1.001-1.035) Urine Protein 2+ H (Negative) Urine Glucose (UA) Negative (Negative) Urine Ketones Negative (Negative) Urine Blood Small H (Negative) Urine Nitrite Negative (Negative) Urine Bilirubin Negative (Negative) Urine Urobilinogen 3.0 (<2.0) mg/dL Ur Leukocyte Esterase Large H (Negative) Urine RBC 18 H (0-5) /hpf Urine WBC 77 H (0-5) /hpf Ur Squamous Epith Cells 1 (0-4) /hpf Calcium Oxalate Crystal Many H (None) /hpf Amorphous Sediment Rare H (None) /hpf Urine Mucus Rare H (None) /hpf Urine Yeast (Budding) Moderate H (None) /hpf Influenza Type A RNA Not Detected (Not Detectd) Influenza Type B (PCR) Not Detected (Not Detectd) - Radiology Data Two-view x-ray of the chest is obtained. Report reviewed in its entirety. Impression by Dr. Santoyo shows cardia megaly. Pulmonary vascularity increased compared to last exam. Minimal heart failure as possible. (Tiffanie Akins) Disposition <Tiffanie Akins - Last Filed: 10/08/19 04:15> <Ayleen Zarate - Last Filed: 10/09/19 21:28> Clinical Impression: Urinary tract infection, Sepsis Disposition: ADMITTED IP TO THIS HOSP Condition: Serious
[2019-10-08] MEDS: SODIUM CHLORIDE 0.9% 1,000 ML IV SCH ×3 (01:07→15:14)
[2019-10-08] MEDS ORDERED: MORPHINE SULFATE 2 MG/ML SYRINGE IVP STA (01:21)
[2019-10-08 03:46] LABS: Glucose,Whole Blood 200 mg/dL (75-99)
[2019-10-08 07:39] LABS: Glucose,Whole Blood 253 mg/dL (75-99)
[2019-10-08] MEDS: INSULIN ASPART (NovoLOG) 100 UNIT/ML VIAL SQ SCH ×4 (08:13→20:37)
[2019-10-08] MEDS: ALBUTEROL NEBULIZED 2.5 MG/3 ML INHALATION SCH ×3 (12:16→21:21)
[2019-10-08 12:29] LABS: Glucose,Whole Blood 235 mg/dL (75-99)
[2019-10-08] MEDS: AMPICILLIN-SULBACTAM 3 GM in SODIUM CHLORIDE 0.9% 100 ML IVPB SCH ×3 (13:29→23:00)
--- NOTE | 2019-10-08 13:49 | P.HPIM ---
History of Present Illness Patient is a 62-year-old female came in with altered mental status fever found to be septic significant abnormal urine patient does have a Humphrey catheter chronically. Patient was here recently on at the time urine cultures were done which showed enterococcus. Patient was started on Rocephin which was injected switched to Unasyn infectious disease will be consulted. Patient was varying BiPAP machine when I evaluated the patient but patient is not in respiratory failure patient lungs sound okay no evidence of any pneumonia although x-ray was read as possible mild pulmonary edema patient uses a CPAP at home. 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 Patient was infection free for long time for few years started having infection symptoms lately and presented with confusion now found to have urinary tract infection. Patient is partially treated with antibiotics including nitrofurantoin and penicillin because of which I do not expect the cultures to be positive anyways cultures w ere obtained here was abnormal. Infectious disease will be consulted. Review of Systems REVIEW OF SYSTEMS: CONSTITUTIONAL: As mentioned in HPI HEENT: No recent visual problems or hearing problems. Denied any sore throat. CARDIOVASCULAR: No chest pain, orthopnea, PND, no palpitations, no syncope. PULMONARY: No shortness of breath, no cough, no hemoptysis. GASTROINTESTINAL: No diarrhea, no nausea, no vomiting, no abdominal pain. NEUROLOGICAL: No headaches, no weakness, no numbness. HEMATOLOGICAL: Denies any bleeding or petechiae. GENITOURINARY: Denies any burning micturition, frequency, or urgency. MUSCULOSKELETAL/RHEUMATOLOGICAL: Denies any joint pain, swelling, or any muscle pain. ENDOCRINE: Denies any polyuria or polydipsia. The rest of the 14-point review of systems is negative. 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, IDDM type II, neuropathy R leg, sarcoidosis/lungs, bronchitis, aortic stenosis/murmur, past c hronic constipation, colostomy, occasional incontinence of stool, lower GI bleed, chronic urinary incontinence/neurogenic bladder/chronic Humphrey/frequent urinary tract infections/sepsis, anemia, gait dysfunction-pt is lifted to electric w/c, obstructive sleep apnea with Cpap use, chronic hydronephrosis of the kidneys History of Any Multi-Drug Resistant Organisms: C-DIFF, MRSA Date of last positivie culture/infection: 11/2015 MDRO Source:: c-diff, mrsa 2011 in blood Past Surgical History: No Surgical Hx Reported, Bowel Resection, Tubal Ligation Additional Past Surgical History / Comment(s): 2015 sigmoid volvulus with bowel resection/colostomy, EGD, colonoscopies, bronchoscopies x3, carpal tunnel release-laterallity unknown, D&C Past Anesthesia/Blood Transfusion Reactions: No Reported Reaction Smoking Status: Never smoker - Past Family History Father Family Medical History: Cancer Additional Family Medical History / Comment(s): from pancreatic cancer Mother Family Medical History: Congestive Heart Failure (CHF), Diabetes Mellitus, Dialysis Additional Family Medical History / Comment(s): from CHF Medications and Allergies Home Medications Medication Instructions Recorded Confirmed Type Aspirin 81 mg PO DAILY 11/10/15 10/08/19 History Atorvastatin Calcium [Lipitor] 20 mg PO DAILY 11/10/15 10/08/19 History Budesonide [Pulmicort] 0.5 mg INHALATION RT-DAILY 11/10/15 10/08/19 History Imipramine [Tofranil] 25 mg PO BID 11/10/15 10/08/19 History [place]-3 Fatty Acids/Fish Oil [Fish 1 cap PO DAILY 11/10/15 10/08/19 History Oil 1,000 mg Softgel] PARoxetine HCL [Paxil] 20 mg PO DAILY 11/10/15 10/08/19 History Albuterol Nebulized [Ventolin 2.5 mg INHALATION RT-QID 11/11/15 10/08/19 History Nebulized] Oxybutynin Xl [Ditropan XL] 5 mg PO DAILY 11/11/15 10/08/19 History INSULIN LISPRO (humaLOG) [humaLOG] See Protocol SQ AC-TID 09/07/16 10/08/19 History L.acidoph,Paracasei, B.lactis 1 cap PO DAILY 09/07/16 10/08/19 History [Probiotic] Insulin Glargine,Hum.rec.anlog 45 unit SQ DAILY 10/08/19 10/08/19 History [Lantus Solostar] Lactulose 10 gm PO DAILY 10/08/19 10/08/19 History Nitrofurantoin Monohyd/M-Cryst 100 mg PO BID 10/08/19 10/08/19 History [Macrobid] Penicillin V Potassium [Pen Vee K] 250 mg PO TID 10/08/19 10/08/19 History metFORMIN HCL 1,000 mg PO BID 10/08/19 10/08/19 History Allergies Allergy/AdvReac Type Severity Reaction Status Date / Time No Known Allergies Allergy Verified 10/08/19 08:54 Physical Exam Vitals: Vital Signs Temp Pulse Resp BP Pulse Ox 10/08/19 11:48 98.2 F 98 18 109/67 97 10/08/19 11:00 98.2 F 98 18 109/67 97 10/08/19 07:00 98.7 F 104 H 18 118/65 97 10/08/19 06:00 98.8 F 104 H 20 122/70 97 10/08/19 05:00 106 H 24 120/70 98 10/08/19 04:00 98.9 F 107 H 24 122/73 99 10/08/19 03:00 99.7 F H 110 H 26 H 118/76 96 10/08/19 02:34 115 H 24 126/71 97 10/08/19 02:00 114 H 24 130/100 97 10/08/19 01:00 100.7 F H 120 H 26 H 147/86 96 10/08/19 00:30 121 H 20 155/60 97 10/07/19 23:41 102.7 F H 121 H 24 164/77 96 Intake and Output 10/07/19 10/08/19 10/08/19 22:59 06:59 14:59 Other: Voiding Method Indwelling Catheter Weight 95.254 kg 95.254 kg PHYSICAL EXAMINATION: GENERAL: The patient is alert and oriented x3, not in any acute distress. Obese , Is on BiPAP HEENT: Pupils are round and equally reacting to light. EOMI. No scleral icterus. No conjunctival pallor. Normocephalic, atraumatic. No pharyngeal erythema. No thyromegaly. CARDIOVASCULAR: S1 and S2 present. No murmurs, rubs, or gallops. PULMONARY: Chest is clear to auscultation, no wheezing or crackles. ABDOMEN: Soft, nontender, nondistended, normoactive bowel sounds. No palpable organomegaly. Does have a Humphrey catheter MUSCULOSKELETAL: No joint swelling or deformity. EXTREMITIES: No cyanosis, clubbing, or pedal edema. NEUROLOGICAL: Gross neurological examination did not reveal any new focal deficits. SKIN: No rashes. Results CBC & Chem 7: 10/08/19 00:10 10/08/19 00:10 Labs: Abnormal Lab Results - Last 24 Hours (Table) 10/08/19 10/08/19 10/08/19 Range/Units 00:03 00:10 00:10 MCHC 30.9 L (31.0-37.0) g/dL Neutrophils # 9.1 H (1.3-7.7) k/uL Lymphocytes # 0.5 L (1.0-4.8) k/uL Glucose 206 H (74-99) mg/dL POC Glucose (mg/dL) 254 H (75-99) mg/dL Plasma Lactic Acid George (0.7-2.0) mmol/L AST 63 H (14-36) U/L ALT 50 H (4-34) U/L Procalcitonin (0.02-0.09) ng/mL Urine Appearance (Clear) Urine Protein (Negative) Urine Blood (Negative) Ur Leukocyte Esterase (Negative) Urine RBC (0-5) /hpf Urine WBC (0-5) /hpf Calcium Oxalate Crystal (None) /hpf Amorphous Sediment (None) /hpf Urine Mucus (None) /hpf Urine Yeast (Budding) (None) /hpf 10/08/19 10/08/19 10/08/19 Range/Units 00:10 00:10 00:25 MCHC (31.0-37.0) g/dL Neutrophils # (1.3-7.7) k/uL Lymphocytes # (1.0-4.8) k/uL Glucose (74-99) mg/dL POC Glucose (mg/dL) (75-99) mg/dL Plasma Lactic Acid George 2.5 H* (0.7-2.0) mmol/L AST (14-36) U/L ALT (4-34) U/L Procalcitonin 0.20 H (0.02-0.09) ng/mL Urine Appearance Cloudy H (Clear) Urine Protein 2+ H (Negative) Urine Blood Small H (Negative) Ur Leukocyte Esterase Large H (Negative) Urine RBC 18 H (0-5) /hpf Urine WBC 77 H (0-5) /hpf Calcium Oxalate Crystal Many H (None) /hpf Amorphous Sediment Rare H (None) /hpf Urine Mucus Rare H (None) /hpf Urine Yeast (Budding) Moderate H (None) /hpf 10/08/19 10/08/19 10/08/19 Range/Units 03:44 07:38 12:28 MCHC (31.0-37.0) g/dL Neutrophils # (1.3-7.7) k/uL Lymphocytes # (1.0-4.8) k/uL Glucose (74-99) mg/dL POC Glucose (mg/dL) 200 H 253 H 235 H (75-99) mg/dL Plasma Lactic Acid George (0.7-2.0) mmol/L AST (14-36) U/L ALT (4-34) U/L Procalcitonin (0.02-0.09) ng/mL Urine Appearance (Clear) Urine Protein (Negative) Urine Blood (Negative) Ur Leukocyte Esterase (Negative) Urine RBC (0-5) /hpf Urine WBC (0-5) /hpf Calcium Oxalate Crystal (None) /hpf Amorphous Sediment (None) /hpf Urine Mucus (None) /hpf Urine Yeast (Budding) (None) /hpf Microbiology - Last 24 Hours (Table) 10/08/19 00:25 Urine Culture - Preliminary Urine,Voided Thrombosis Risk Factor Assmnt - Choose All That Apply Any of the Below Risk Factors Present?: Yes Each Factor Represents 1 point: Medical pt on bed rest, Obesity (BMI >25), Sepsis (< 1month), Serious lung disease incl. pneumonia (< 1month) Other Risk Factors: Yes Each Risk Factor Represents 2 Points: Age 61-74 years, Patient confined to bed Other congenital or acquired thrombophilia - If yes, enter type in comment: No Thrombosis Risk Factor Assessment Total Risk Factor Score: 8 Thrombosis Risk Factor Assessment Level: High Risk Assessment and Plan Plan: -Sepsis secondary to Humphrey catheter related urinary tract infection. Patient wi ll be switched to Unasyn as mentioned above. Awaiting repeat urine cultures infectious disease was consulted. 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
--- NOTE | 2019-10-08 13:56 | P.CNPUL ---
History of Present Illness Consult date: 10/08/19 Chief complaint: UTI, fever, respiratory failure History of present illness: This is a 62-year-old female patient with known history of diabetes, hypertension, morbid obesity, bronchial asthma olivopontine and cerebellar degeneration, chronic constipation, chronic Humphrey catheter placement, medical debility and profound weakness, patient usually uses a motorized scooter, history of obstructive sleep apnea syndrome maintained on CPAP at a pressure of 11 cm of water on outpatient basis, and chronic hydronephrosis of the kidneys. History of coronary artery disease and history of permanent Humphrey catheter insertion resulting in recurrent urinary tract infections including infections with enterococcus and gram-negative.. The patient hasn't also chronic constipation she has undergone a diverting colostomy. The patient is coming in with fever and lethargy and weakness and some increased shortness of breath.She apparently had some altered mental status along with that. She was seen in emergency department she days back with UTI was suspected and the patient was given urine cultures and she was discharged home on Keflex. The patient's final cultures came back positive for Enterococcus faecalis and Chaya species and this was done on 09/29/2019. Whereas cultures from 09/06/2019 at [facility]. The patient accordingly was brought into the emergency department. She still producing adequate urine output. She got IV fluids. She was started on IV antibiotics and is a bit more awake and alert and responsive at this point in time. Denies having any chest pain. No aspiration. Chest x-ray is unchanged and there is no evidence of any airspace disease or pneumonia. No signs of any asthma exacerbation at this point in time. She is on a BiPAP pressure of 12/5 cm of water upon request. Discussed the case with the primary care team the patient will be started on IV Unasyn pending further cultures. Review of Systems Constitutional: Reports daytime sleepiness, Reports fatigue, Reports fever, Reports lethargy, Reports poor appetite, Reports weakness Eyes: bilateral blurred vision, bilateral decreased vision, denies bulging eye Ears: deny: decreased hearing, ear discharge, earache, tinnitus Ears, nose, mouth and throat: Denies headache, Denies sore throat Breasts: absent: as per HPI, change in shape, gynecomastia, masses, nipple discharge, pain, skin changes, swelling Cardiovascular: Reports dyspnea on exertion Respiratory: Reports sleep apnea, Reports snoring Gastrointestinal: Reports as per HPI, Reports constipation Genitourinary: Reports as per HPI (Recurrent urinary tract infections), Reports incomplete emptying Musculoskeletal: Reports as per HPI, Reports gait dysfunction, Reports limitation of motion, Reports low back pain, Reports muscle cramps, Reports muscle weakness Musculoskeletal: absent: ankle pain, ankle stiffness, ankle swelling Integumentary: Denies pruritus, Denies rash Neurological: Reports balance difficulties, Reports change in mentation, Reports gait dysfunction, Reports motor disturbance, Reports numbness, Reports paralysis Psychiatric: Reports as per HPI Endocrine: Reports as per HPI Hematologic/Lymphatic: Reports as per HPI Allergic/Immunologic: Reports as per HPI 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, IDDM type II, neuropathy R leg, sarcoidosis/lungs, bronchitis, aortic stenosis/murmur, past c hronic constipation, colostomy, occasional incontinence of stool, lower GI bleed, chronic urinary incontinence/neurogenic bladder/chronic Humphrey/frequent urinary tract infections/sepsis, anemia, gait dysfunction-pt is lifted to electric w/c, obstructive sleep apnea with Cpap use, chronic hydronephrosis of the kidneys History of Any Multi-Drug Resistant Organisms: C-DIFF, MRSA Date of last positivie culture/infection: 11/2015 MDRO Source:: c-diff, mrsa 2011 in blood Past Surgical History: No Surgical Hx Reported, Bowel Resection, Tubal Ligation Additional Past Surgical History / Comment(s): 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, EGD, colonoscopies, bronchoscopies x3, carpal tunnel release-laterallity unknown, D&C Past Anesthesia/Blood Transfusion Reactions: No Reported Reaction Smoking Status: Never smoker - Past Family History Father Family Medical History: Cancer Additional Family Medical History / Comment(s): from pancreatic cancer Mother Family Medical History: Congestive Heart Failure (CHF), Diabetes Mellitus, Dialysis Additional Family Medical History / Comment(s): from CHF Medications and Allergies Home Medications Medication Instructions Recorded Confirmed Type Aspirin 81 mg PO DAILY 11/10/15 10/08/19 History Atorvastatin Calcium [Lipitor] 20 mg PO DAILY 11/10/15 10/08/19 History Budesonide [Pulmicort] 0.5 mg INHALATION RT-DAILY 11/10/15 10/08/19 History Imipramine [Tofranil] 25 mg PO BID 11/10/15 10/08/19 History [place]-3 Fatty Acids/Fish Oil [Fish 1 cap PO DAILY 11/10/15 10/08/19 History Oil 1,000 mg Softgel] PARoxetine HCL [Paxil] 20 mg PO DAILY 11/10/15 10/08/19 History Albuterol Nebulized [Ventolin 2.5 mg INHALATION RT-QID 11/11/15 10/08/19 History Nebulized] Oxybutynin Xl [Ditropan XL] 5 mg PO DAILY 11/11/15 10/08/19 History INSULIN LISPRO (humaLOG) [humaLOG] See Protocol SQ AC-TID 09/07/16 10/08/19 History L.acidoph,Paracasei, B.lactis 1 cap PO DAILY 09/07/16 10/08/19 History [Probiotic] Insulin Glargine,Hum.rec.anlog 45 unit SQ DAILY 10/08/19 10/08/19 History [Lantus Solostar] Lactulose 10 gm PO DAILY 10/08/19 10/08/19 History Nitrofurantoin Monohyd/M-Cryst 100 mg PO BID 10/08/19 10/08/19 History [Macrobid] Penicillin V Potassium [Pen Vee K] 250 mg PO TID 10/08/19 10/08/19 History metFORMIN HCL 1,000 mg PO BID 10/08/19 10/08/19 History Allergies Allergy/AdvReac Type Severity Reaction Status Date / Time No Known Allergies Allergy Verified 10/08/19 08:54 Physical Exam Vitals: Vital Signs Temp Pulse Resp BP Pulse Ox 10/08/19 11:48 98.2 F 98 18 109/67 97 10/08/19 11:00 98.2 F 98 18 109/67 97 10/08/19 07:00 98.7 F 104 H 18 118/65 97 10/08/19 06:00 98.8 F 104 H 20 122/70 97 10/08/19 05:00 106 H 24 120/70 98 10/08/19 04:00 98.9 F 107 H 24 122/73 99 10/08/19 03:00 99.7 F H 110 H 26 H 118/76 96 10/08/19 02:34 115 H 24 126/71 97 10/08/19 02:00 114 H 24 130/100 97 10/08/19 01:00 100.7 F H 120 H 26 H 147/86 96 10/08/19 00:30 121 H 20 155/60 97 10/07/19 23:41 102.7 F H 121 H 24 164/77 96 Intake and Output 10/07/19 10/08/19 10/08/19 22:59 06:59 14:59 Other: Voiding Method Indwelling Catheter Weight 95.254 kg 95.254 kg Morbidly obese, comfortable currently wearing a BiPAP Head exam was generally normal. There was no scleral icterus or corneal arcus. Mucous membranes were moist. Neck was supple and without jugular venous distension, thyromegaly, or carotid bruits. Carotids were easily palpable bilaterally. There was no adenopathy. The patient has a Mallampati class IV with significant crowding of the posterior oropharynx Lungs sounds are diminished in lung bases bilaterally otherwise clear. No wheezes or rhonchi. Cardiac exam revealed the PMI to be normally situated and sized. The rhythm was regular and no extrasystoles were noted during several minutes of auscultation. The first and second heart sounds were normal and physiologic splitting of the second heart sound was noted. There were no murmurs, rubs, clicks, or gallops. Abdomen is soft nontender. There is a diverticular colostomy. No syncopal organomegaly. No ascites. Extremities reveal trace edema and there is no cyanosis or clubbing. Neurologically the patient is motor weakness in all 4 extremities and she has unequal pupils without any nystagmus. Gait cannot be assessed as the patient is wheelchair-bound. Upper extremity motor function is still preserved compared to the lower extremity. No facial asymmetry. Results - Laboratory Findings CBC and BMP: 10/08/19 00:10 10/08/19 00:10 PT/INR, D-dimer PT 9.6 sec (9.0-12.0) 10/08/19 00:10 INR 0.9 (<1.2) 10/08/19 00:10 Abnormal lab findings: Abnormal Labs 10/08/19 10/08/19 10/08/19 00:03 00:10 00:10 MCHC 30.9 L Neutrophils # 9.1 H Lymphocytes # 0.5 L Glucose 206 H POC Glucose (mg/dL) 254 H Plasma Lactic Acid George AST 63 H ALT 50 H Procalcitonin Urine Appearance Urine Protein Urine Blood Ur Leukocyte Esterase Urine RBC Urine WBC Calcium Oxalate Crystal Amorphous Sediment Urine Mucus Urine Yeast (Budding) 10/08/19 10/08/19 10/08/19 00:10 00:10 00:25 MCHC Neutrophils # Lymphocytes # Glucose POC Glucose (mg/dL) Plasma Lactic Acid George 2.5 H* AST ALT Procalcitonin 0.20 H Urine Appearance Cloudy H Urine Protein 2+ H Urine Blood Small H Ur Leukocyte Esterase Large H Urine RBC 18 H Urine WBC 77 H Calcium Oxalate Crystal Many H Amorphous Sediment Rare H Urine Mucus Rare H Urine Yeast (Budding) Moderate H 10/08/19 10/08/19 10/08/19 03:44 07:38 12:28 MCHC Neutrophils # Lymphocytes # Glucose POC Glucose (mg/dL) 200 H 253 H 235 H Plasma Lactic Acid George AST ALT Procalcitonin Urine Appearance Urine Protein Urine Blood Ur Leukocyte Esterase Urine RBC Urine WBC Calcium Oxalate Crystal Amorphous Sediment Urine Mucus Urine Yeast (Budding) - Diagnostic Findings Chest x-ray: image reviewed Assessment and Plan Plan: 1 acute febrile illness along with altered mentation and lethargy in addition to generalized weakness related to a recurrent UTI. The patient is a chronic indwelling Humphrey catheter. Most recent cultures indicating Enterococcus faecalis along with Chaya and previous cultures have indicated Providencia 2 chronic bronchial asthma currently inactive in stable 3 morbid obesity 4 history of Maurer pontine cerebellar degeneration 5 diabetes mellitus type 2 6 hypertension 7 coronary artery disease 8. Chronic kidney disease with previous history of hydronephrosis 9 obstructive sleep apnea maintained on CPAP therapy at pressure of 11 cm of water 10 chronic indwelling Humphrey catheter 11 chronic constipation post colostomy Plan IV fluids with normal saline at 75 mL an hour IV Unasyn pending further urine cultures and sensitivities Replaced the Humphrey catheter Resume outpatient medications No signs of hypotension. The patient's mental status is improving. We'll continue to follow.
--- NOTE | 2019-10-08 14:04 | P.CNPUL ---
History of Present Illness Consult date: 10/08/19 Requesting physician: Treasure Sampson Reason for consult: dyspnea Chief complaint: Altered mental status, fever History of present illness: This is a pleasant 64-year-old female patient who follows with Dr. Barboza as her primary care provider. 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 She follows with Dr. Irby in our office. She has chronic hypoxic respiratory failure and is on 3 L/m per nasal cannula. Chronic obstructive sleep apnea utilizing CPAP at 11 cm of water. Mild intermittent chronic bronchial asthma on DuoNeb inhalations and Pulmicort Respules twice a day. She says restrictive lung disease secondary to morbid obesity. She presented to the emergency room yesterday with complaints of fever and altered mental status. She was recently treated for another urinary tract infection was on oral penicillin. Her family found her to be very fatigued and difficulty in keeping her awake. She was confused and wasn't making much sense. Urinalysis dated 09/29/2019 revealed Enterococcus faecalis talus and Chaya. Follow-up culture pending. White count 10.3. Hemoglobin 11.4. Creatinine 0.59. Influenza screen negative. T-max 102.7, currently afebrile and she's been initiated on Unasyn and she is resumed on Pulmicort and albuterol. She is seen today in the emergency room. She is awake and alert in no acute distress. She was initially placed on BiPAP 12/5 and 40% FiO2. She is now on nasal cannula at 4 L and maintaining O2 saturations in the mid 90s. She's afebrile. Review of Systems REVIEW OF SYSTEMS: CONSTITUTIONAL: Denies any recent significant weight loss or weight gain. EYES: Denies change in vision. EARS, NOSE, MOUTH, THROAT: Denies headaches, denies sore throat. CARDIOVASCULAR: Denies chest pain, palpitations or syncopal episodes. RESPIRATORY: Positive for shortness of breath, cough, congestion or hemoptysis. GASTROINTESTINAL: Denies change in appetite, denies abdominal pain GENITOURINARY: Denies hematuria, denies infections. MUSKULOSKELETAL: Denies pain, denies swelling. INTEGUMENTARY: Denies rash, denies eczema. NEUROLOGICAL: Positive for altered mental status, no recent seizure activity. PSYCHIATRIC: Denies anxiety, denies depression. HEMATOLOGIC/LYMPHATIC: Denies anemia, denies enlarged lymph nodes. 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, IDDM type II, neuropathy R leg, sarcoidosis/lungs, bronchitis, aortic stenosis/murmur, past chronic constipation, colostomy, occasional incontinence of stool, lower GI bleed, chronic urinary incontinence/neurogenic bladder/chronic Humphrey/frequent urinary tract infections/sepsis, anemia, gait dysfunction-pt is lifted to electric w/c, obstructive sleep apnea with Cpap use, chronic hydronephrosis of the kidneys History of Any Multi-Drug Resistant Organisms: C-DIFF, MRSA Date of last positivie culture/infection: 11/2015 MDRO Source:: c-diff, mrsa 2011 in blood Past Surgical History: No Surgical Hx Reported, Bowel Resection, Tubal Ligation Additional Past Surgical History / Comment(s): 2015 sigmoid volvulus with bowel resection/colostomy, EGD, colonoscopies, bronchoscopies x3, carpal tunnel release-laterallity unknown, D&C Past Anesthesia/Blood Transfusion Reactions: No Reported Reaction Smoking Status: Never smoker - Past Family History Father Family Medical History: Cancer Additional Family Medical History / Comment(s): from pancreatic cancer Mother Family Medical History: Congestive Heart Failure (CHF), Diabetes Mellitus, Dialysis Additional Family Medical History / Comment(s): from CHF Medications and Allergies Home Medications Medication Instructions Recorded Confirmed Type Aspirin 81 mg PO DAILY 11/10/15 10/08/19 History Atorvastatin Calcium [Lipitor] 20 mg PO DAILY 11/10/15 10/08/19 History Budesonide [Pulmicort] 0.5 mg INHALATION RT-DAILY 11/10/15 10/08/19 History Imipramine [Tofranil] 25 mg PO BID 11/10/15 10/08/19 History Callands-3 Fatty Acids/Fish Oil [Fish 1 cap PO DAILY 11/10/15 10/08/19 History Oil 1,000 mg Softgel] PARoxetine HCL [Paxil] 20 mg PO DAILY 11/10/15 10/08/19 History Albuterol Nebulized [Ventolin 2.5 mg INHALATION RT-QID 11/11/15 10/08/19 History Nebulized] Oxybutynin Xl [Ditropan XL] 5 mg PO DAILY 11/11/15 10/08/19 History INSULIN LISPRO (humaLOG) [humaLOG] See Protocol SQ AC-TID 09/07/16 10/08/19 History L.acidoph,Paracasei, B.lactis 1 cap PO DAILY 09/07/16 10/08/19 History [Probiotic] Insulin Glargine,Hum.rec.anlog 45 unit SQ DAILY 10/08/19 10/08/19 History [Lantus Solostar] Lactulose 10 gm PO DAILY 10/08/19 10/08/19 History Nitrofurantoin Monohyd/M-Cryst 100 mg PO BID 10/08/19 10/08/19 History [Macrobid] Penicillin V Potassium [Pen Vee K] 250 mg PO TID 10/08/19 10/08/19 History metFORMIN HCL 1,000 mg PO BID 10/08/19 10/08/19 History Allergies Allergy/AdvReac Type Severity Reaction Status Date / Time No Known Allergies Allergy Verified 10/08/19 08:54 Physical Exam Vitals: Vital Signs Temp Pulse Resp BP Pulse Ox 10/08/19 11:48 98.2 F 98 18 109/67 97 10/08/19 11:00 98.2 F 98 18 109/67 97 10/08/19 07:00 98.7 F 104 H 18 118/65 97 10/08/19 06:00 98.8 F 104 H 20 122/70 97 10/08/19 05:00 106 H 24 120/70 98 10/08/19 04:00 98.9 F 107 H 24 122/73 99 10/08/19 03:00 99.7 F H 110 H 26 H 118/76 96 10/08/19 02:34 115 H 24 126/71 97 10/08/19 02:00 114 H 24 130/100 97 10/08/19 01:00 100.7 F H 120 H 26 H 147/86 96 10/08/19 00:30 121 H 20 155/60 97 10/07/19 23:41 102.7 F H 121 H 24 164/77 96 Intake and Output 10/07/19 10/08/19 10/08/19 22:59 06:59 14:59 Other: Voiding Method Indwelling Catheter Weight 95.254 kg 95.254 kg GENERAL EXAM: Alert, morbidly obese pleasant 64-year-old female patient, chronically weak, on 4 L nasal cannula, comfortable in no apparent distress. HEAD: Normocephalic. EYES: Unequal reaction of pupils secondary to pontine cerebellar degeneration NOSE: Clear with pink turbinates. THROAT: Crowding the posterior pharynx No erythema or exudates. NECK: Short No masses, no JVD. CHEST: No chest wall deformity. LUNGS: Equal air entry with few scattered rhonchi. CVS: S1 and S2 normal with no audible murmur, regular rhythm. ABDOMEN: Morbidly obese unable to appreciate abdominal organs, normal bowel sounds, no guarding or rigidity. SPINE: No scoliosis or deformity SKIN: No rashes CENTRAL NERVOUS SYSTEM: No focal deficits, tone is weak in all 4 extremities especially the lower extremities. EXTREMITIES: There is 1-2+ peripheral edema. No clubbing, no cyanosis. Peripheral pulses are intact. Results - Laboratory Findings CBC and BMP: 10/08/19 00:10 10/08/19 00:10 PT/INR, D-dimer PT 9.6 sec (9.0-12.0) 10/08/19 00:10 INR 0.9 (<1.2) 10/08/19 00:10 Abnormal lab findings: Abnormal Labs 10/08/19 10/08/19 10/08/19 00:03 00:10 00:10 MCHC 30.9 L Neutrophils # 9.1 H Lymphocytes # 0.5 L Glucose 206 H POC Glucose (mg/dL) 254 H Plasma Lactic Acid George AST 63 H ALT 50 H Procalcitonin Urine Appearance Urine Protein Urine Blood Ur Leukocyte Esterase Urine RBC Urine WBC Calcium Oxalate Crystal Amorphous Sediment Urine Mucus Urine Yeast (Budding) 10/08/19 10/08/19 10/08/19 00:10 00:10 00:25 MCHC Neutrophils # Lymphocytes # Glucose POC Glucose (mg/dL) Plasma Lactic Acid George 2.5 H* AST ALT Procalcitonin 0.20 H Urine Appearance Cloudy H Urine Protein 2+ H Urine Blood Small H Ur Leukocyte Esterase Large H Urine RBC 18 H Urine WBC 77 H Calcium Oxalate Crystal Many H Amorphous Sediment Rare H Urine Mucus Rare H Urine Yeast (Budding) Moderate H 10/08/19 10/08/19 10/08/19 03:44 07:38 12:28 MCHC Neutrophils # Lymphocytes # Glucose POC Glucose (mg/dL) 200 H 253 H 235 H Plasma Lactic Acid George AST ALT Procalcitonin Urine Appearance Urine Protein Urine Blood Ur Leukocyte Esterase Urine RBC Urine WBC Calcium Oxalate Crystal Amorphous Sediment Urine Mucus Urine Yeast (Budding) - Diagnostic Findings Chest x-ray: image reviewed Assessment and Plan Assessment: 1 Altered mental status, weakness secondary to urinary tract infection secondary to Enterococcus faecalis and Chaya 2 Chronic urinary incontinence with chronic Humphrey catheter with frequent urinary tract infections 3 Chronic hypoxemic respiratory failure secondary to morbid obesity restrictive lung disease utilizing home oxygen at 3 L/m per nasal cannula 4 Obstructive sleep apnea utilizing CPAP in the outpatient setting at 11 cm of water 5 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 Irby. Chest x-ray, labs, microbiology reviewed. She is currently on Unasyn. Await repeat cultures. We'll continue with bronchodilators and Pulmicort inhalations. Continue oxygen at 3 L/m per nasal cannula. Home CPAP. Lovenox for DVT prophylaxis. We'll continue to follow make further recommendations based on her clinical status. I, the cosigning physician, performed a history & physical examination of the patient. Lungs sounds with few scattered rhonchi. Maintaining good O2 saturations in the 90s on 4 L/m per nasal cannula. I discussed the assessment and plan of care with my nurse practitioner, Beba Vallejo. I attest to the above consultation as dictated by her. Time with Patient: Greater than 30
[2019-10-08 14:59] VITALS: BMI 38.4
[2019-10-08 16:58] LABS: Glucose,Whole Blood 229 mg/dL (75-99)
[2019-10-08 17:18] LABS: Appearance,Urine Clear (Clear); Bacteria,Urine Rare /hpf; Bilirubin,Urine Negative (Negative); Blood,Urine Negative (Negative); Color,Urine Light Yellow; Glucose,Urine (UA) Negative (Negative); Ketones,Urine Negative (Negative); Leukocyte Esterase,Urine Large (Negative); Nitrite,Urine Negative (Negative); PH, Urine 6.5 (5.0-8.0); Protein,Urine Negative (Negative); RBC,Urine 1 /hpf (0-5); Specific Gravity,Urine 1.005 (1.001-1.035); Urobilinogen,Urine <2.0 mg/dL (<2.0); WBC,Urine 24 /hpf (0-5)
[2019-10-08 20:22] LABS: Glucose,Whole Blood 240 mg/dL (75-99)
[2019-10-08] MEDS: FAMOTIDINE 20 MG TAB PO SCH (20:37)
[2019-10-08] MEDS: IMIPRAMINE 25 MG TAB PO SCH (20:37)
--- NOTE | 2019-10-08 23:39 | CONS ---
CONSULTATION DATE OF SERVICE: 10/08/2019 REASON FOR CONSULTATION: Urinary tract infection. HISTORY OF PRESENT ILLNESS: The patient is a 64-year-old female who has been brought to the ER at [facility] for evaluation of mental status changes and fever. Apparently the patient recently has been treated for UTI in the outpatient setting and antibiotic was switched to oral penicillin. However, family states that evening the patient was very tired and could not stay awake. She seemed to be confused and was not without making any sense and feeling when the patient did have a chronic indwelling Humphrey catheter for a couple of years, now because of urinary incontinence and is not very clear when the last time this catheter has been changed. The patient subsequently was evaluated by the ER physician. On arrival to the ER the patient did have a fever of 102 degrees Fahrenheit. The patient white count was normal. Creatinine 0.59, L 2.5, liver enzymes mildly elevated. Urine positive with large leuks status is more sensitive to WBC. Influenza serology was negative and the patient did have a chest x-ray shows cardiomegaly with pulmonary vascular congestion. Mild heart failure possible. The patient was started on Unasyn. Infectious Disease was consulted for further recommendations regarding antibiotic therapy. The patient at time my evaluation is awake, alert. She knows she is in the hospital. The patient denies having headache. No URI symptoms. No chest pain. No shortness of breath. Very minimal cough. Denies any abdominal pain and no diarrhea. REVIEW OF SYSTEMS: Positive points have been mentioned in HPI. Rest of systems are negative. PAST MEDICAL HISTORY: coronary artery disease, history of diabetes mellitus, hyperlipidemia, hypertension, sleep apnea, morbid obesity, chronic urine incontinence requiring indwelling Humphrey catheter and recurrent UTI, previous history of C difficile has with MRSA infection. PAST SURGICAL HISTORY: Carpal tunnel release. SOCIAL HISTORY: No history of smoking, drinking or drug use. FAMILY HISTORY: Father from pancreatic cancer. Mother with history of congestive heart failure. ALLERGIES: No known drug allergies. MEDICATIONS: Medications currently include the patient is on Tylenol, Ventolin, Unasyn 3 g q.6 hours, aspirin, Lipitor: Lovenox Pepcid, Motrin, Tofranil, NovoLog, Levemir. Lactulose, Ditropan XL, Paxil. PHYSICAL EXAMINATION: On examination, her blood pressure is 107/62, with a pulse of 99, temperature 98. She is 95% on BiPAP. General description is a middle-aged female lying in bed in no distress. No tachypnea or accessory muscle of respiration use. HEENT: Examination shows no pallor or scleral icterus. Oral mucosa membranes are dry. No pharyngeal erythema thrush. Neck: Trachea is central. No thyromegaly. Lungs unlabored breathing decreased breath sounds in the bases, no wheeze. Heart S1, S2. Regular rate and rhythm. ABDOMEN: Soft no tenderness. No rigidity. EXTREMITIES: Feet the patient had excoriated skin as per the RN. The patient did have indwelling Humphrey catheter with some concentrated urine. Neurological: Patient is awake, alert, oriented x3. Mood and affect normal. LABS: Hemoglobin 9.4, white count 10.3, BUN of 16, creatinine 0.59 decreased to 2.57 symptom mildly elevated procalcitonin was 0.0. Influenza serology has been negative. UA is positive , cultures currently pending. DIAGNOSTIC IMPRESSION AND PLAN: Patient admitted to the hospital with fever and mental status changes which is likely multifactorial. This patient with possible catheter associated urinary tract infection as the patient did have significantly positive UA and currently with no other definite focus of infection. The patient's abdomen was soft tender with no evidence of any cellulitis. Chest x-ray negative for any consolidation. Influenza serology was negative. PLAN: 1. Change of Humphrey catheter. Obtain urine culture from new Humphrey. 2. Will check ultrasound of abdomen and elevated liver enzymes. 3. Unasyn 3 g q.6 hours. 4. Skin protective cream to the skin to the sacral area. 5. We will follow up on clinical condition and culture to further adjust medication if needed. Thank you for this consultation. We will follow this patient along with you. MMODL / IJN: [id number] /
[2019-10-09] MEDS: AMPICILLIN-SULBACTAM 3 GM in SODIUM CHLORIDE 0.9% 100 ML IVPB SCH ×3 (05:29→17:27)
[2019-10-09] MEDS: SODIUM CHLORIDE 0.9% 1,000 ML IV SCH ×2 (05:29→19:22)
[2019-10-09 06:59] LABS: Glucose,Whole Blood 224 mg/dL (75-99)
[2019-10-09] MEDS: ALBUTEROL NEBULIZED 2.5 MG/3 ML INHALATION SCH ×4 (08:42→21:19)
[2019-10-09] MEDS: BUDESONIDE 0.5 MG/2 ML NEBU INHALATION SCH (08:42)
[2019-10-09] MEDS ORDERED: INSULIN DETEMIR (LEVEMIR) 100 UNIT/ML SYR SQ SCH (09:00)
[2019-10-09] MEDS: PARoxetine 20 MG TAB PO SCH (09:06)
[2019-10-09] MEDS: ATORVASTATIN 20 MG TAB PO SCH (09:06)
[2019-10-09] MEDS: OXYBUTYNIN XL 5 MG TAB.ER.24 PO SCH (09:06)
[2019-10-09] MEDS: LACTULOSE 20 GM/30 ML CUP PO SCH (09:06)
[2019-10-09] MEDS: FAMOTIDINE 20 MG TAB PO SCH ×2 (09:06→20:53)
[2019-10-09] MEDS: ENOXAPARIN 40 MG/0.4 ML SYRINGE SQ SCH (09:07)
[2019-10-09] MEDS: INSULIN ASPART (NovoLOG) 100 UNIT/ML VIAL SQ SCH ×5 (09:07→20:53)
[2019-10-09] MEDS: IMIPRAMINE 25 MG TAB PO SCH ×2 (09:07→20:53)
[2019-10-09] MEDS: ASPIRIN 81 MG PO SCH (09:07)
--- NOTE | 2019-10-09 09:08 | US ---
EXAMINATION TYPE: US abdomen complete DATE OF EXAM: 10/09/2019 COMPARISON: NONE CLINICAL HISTORY: fever. EXAM MEASUREMENTS: Liver Length: 12.5 cm Gallbladder Wall: 0.3 cm CBD: 0.4 cm Spleen: 9.2 cm Right Kidney: 9.5 x 5.2 x 4.8 cm Left Kidney: 9.6 x 5.3 x 5.3 cm Morbidly obese patient with midline colostomy, limited mobility, and on a breathing machine. Exam ext remely limited and technically difficult. Pancreas: Obscured by bowel gas Liver: Increased attenuation, limited visualization Gallbladder: wnl, limited visualization Evidence for sonographic Joshua's sign: no CBD: wnl as seen, limited visualization Spleen: wnl as seen, limited visualization Right Kidney: possible mild hydro vs prominent renal pelvis, limited visualization Left Kidney: No hydronephrosis or masses seen, limited visualization Upper IVC: wnl Abd Aorta: unable to evaluate due to above limitations The pancreas is obscured by overlying bowel gas. The liver is normal in size without evidence of biliary dilatation. Limited views of the gallbladder unremarkable. The gallbladder wall measures 3 mm. This common hepati c duct measures 4 mm. There is no sonographic Joshua's sign. There is mild fullness of the right renal pelvis. Limited views of the left kidney are unremarkable. The aorta is obscured. The IVC is unremarkable. IMPRESSION: 1. LIMITED EXAMINATION. 2. MILD FULLNESS OF THE RIGHT RENAL PELVIS.
--- NOTE | 2019-10-09 11:22 | P.PN ---
Subjective Progress Note Date: 10/09/19 This is a pleasant 64-year-old female patient who follows with Dr. Barboza as her primary care provider. 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 She follows with Dr. Irby in our office. She has chronic hypoxic respiratory failure and is on 3 L/m per nasal cannula. Chronic obstructive sleep apnea utilizing CPAP at 11 cm of water. Mild intermittent chronic bronchial asthma on DuoNeb inhalations and Pulmicort Respules twice a day. She says restrictive lung disease secondary to morbid obesity. She presented to the emergency room yesterday with complaints of fever and altered mental status. She was recently treated for another urinary tract infection was on oral penicillin. Her family found her to be very fatigued and difficulty in keeping her awake. She was confused and wasn't making much sense. Urinalysis dated 09/29/2019 revealed Enterococcus faecalis talus and Chaya. Follow-up culture pending. White count 10.3. Hemoglobin 11.4. Creatinine 0.59. Influenza screen negative. T-max 102.7, currently afebrile and she's been initiated on Unasyn and she is resumed on Pulmicort and albuterol. She is seen today in the emergency room. She is awake and alert in no acute distress. She was initially placed on BiPAP 12/5 and 40% FiO2. She is now on nasal cannula at 4 L and maintaining O2 saturations in the mid 90s. She's afebrile. The patient is seen today 10/09/2019 in follow-up on the regular medical floor. She is more awake and alert today. Confused as to time and place. Denies any shortness of breath, cough or congestion. No fever, chills or night sweats. Blood culture reveals no growth. Urine culture pending. Continued on Unasyn. Objective - Vital Signs Vital signs: Vital Signs Temp 98.4 F 10/09/19 07:00 Pulse 84 10/09/19 08:55 Resp 14 10/09/19 07:00 BP 175/80 10/09/19 07:00 Pulse Ox 99 10/09/19 07:00 Intake & Output 10/08/19 10/09/19 10/09/19 18:59 06:59 18:59 Intake Total 514 3225 240 Output Total 1000 3900 Balance -486 -675 240 Weight 95.254 kg Intake: Intake, IV Titration 100 825 Amount Ampicillin-Sulbactam 3 gm 100 In Sodium Chloride 0.9% 100 ml @ 200 mls/hr IVPB Q6HR [facility] Rx#:[id number] Sodium Chloride 0.9% 1, 825 000 ml @ 75 mls/hr IV . [id number] [facility] Rx#:[id number] Oral 414 2400 240 Output: Urine 1000 3900 Uretheral (Humphrey) 300 2400 Other: Voiding Method Indwelling Catheter Indwelling Catheter Indwelling Catheter - Exam GENERAL EXAM: Alert, morbidly obese pleasant 64-year-old female patient, chronically weak, on 3 L nasal cannula, comfortable in no apparent distress. HEAD: Normocephalic. EYES: Unequal reaction of pupils secondary to pontine cerebellar degeneration NOSE: Clear with pink turbinates. THROAT: Crowding the posterior pharynx No erythema or exudates. NECK: Short No masses, no JVD. CHEST: No chest wall deformity. LUNGS: Equal air entry with few scattered rhonchi. CVS: S1 and S2 normal with no audible murmur, regular rhythm. ABDOMEN: Morbidly obese unable to appreciate abdominal organs, normal bowel sounds, no guarding or rigidity. SPINE: No scoliosis or deformity SKIN: No rashes CENTRAL NERVOUS SYSTEM: No focal deficits, tone is weak in all 4 extremities especially the lower extremities. EXTREMITIES: There is 1-2+ peripheral edema. No clubbing, no cyanosis. Peripheral pulses are intact. - Labs CBC & Chem 7: 10/08/19 00:10 10/08/19 00:10 Labs: Abnormal Lab Results - Last 24 Hours (Table) 10/08/19 10/08/19 10/08/19 Range/Units 00:10 12:28 16:57 POC Glucose (mg/dL) 235 H 229 H (75-99) mg/dL Procalcitonin 0.20 H (0.02-0.09) ng/mL Ur Leukocyte Esterase (Negative) Urine WBC (0-5) /hpf Urine Bacteria (None) /hpf 10/08/19 10/08/19 10/09/19 Range/Units 17:00 20:20 06:57 POC Glucose (mg/dL) 240 H 224 H (75-99) mg/dL Procalcitonin (0.02-0.09) ng/mL Ur Leukocyte Esterase Large H (Negative) Urine WBC 24 H (0-5) /hpf Urine Bacteria Rare H (None) /hpf Microbiology - Last 24 Hours (Table) 10/08/19 00:29 Blood Culture - Preliminary Blood No Growth after 24 hours 10/08/19 00:25 Urine Culture - Preliminary Urine,Voided Assessment and Plan Assessment: 1 Altered mental status, weakness secondary to urinary tract infection secondary to Enterococcus faecalis and Chaya 2 Chronic urinary incontinence with chronic Humphrey catheter with frequent urinary tract infections 3 Chronic hypoxemic respiratory failure secondary to morbid obesity restrictive lung disease utilizing home oxygen at 3 L/m per nasal cannula 4 Obstructive sleep apnea utilizing CPAP in the outpatient setting at 11 cm of water 5 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 Irby. She is stable from the pulmonary standpoint. We'll see her on an as-needed basis. I, the cosigning physician, performed a history & physical examination of the patient. Lungs sounds with few scattered rhonchi. Maintaining good O2 saturations in the 90s on 3 L/m per nasal cannula, alternating with BiPAP. I discussed the assessment and plan of care with my nurse practitioner, Beba Vallejo . I attest to the above note as dictated by her.
[2019-10-09 12:14] LABS: Glucose,Whole Blood 277 mg/dL (75-99)
--- NOTE | 2019-10-09 16:47 | P.PN ---
Subjective 8-year-old female admitted for urinary tract infection believed to be secondary to enterococcus although urine cultures are showing gram-negative bacilli. Patient the is on Unasyn which should help with gram-negative bacilli as well we'll await the urine cultures. Patient has a chronic Humphrey catheter from chronic urinary retention. Patient has an abdominal ultrasound which did not show any significant urinary tract pathology. Constitutional: Denied any fatigue denied any fever. Cardio vascular: denied any chest pain, palpitations Gastrointestinal denied any nausea vomiting Pulmonary: Denied any shortness of breath cough Neurologic denied any new focal deficits All inpatient medications were reviewed and appropriate changes in these m edications as dictated in the interval history and assessment and plan. Objective - Vital Signs Vital signs: Vital Signs Temp 98.2 F 10/09/19 15:00 Pulse 101 H 10/09/19 15:52 Resp 15 10/09/19 15:00 BP 157/99 10/09/19 15:00 Pulse Ox 99 10/09/19 15:00 Intake & Output 10/08/19 10/09/19 10/09/19 18:59 06:59 18:59 Intake Total 514 3225 240 Output Total 1000 3900 900 Balance -486 -675 -660 Weight 95.254 kg Intake: Intake, IV Titration 100 825 Amount Ampicillin-Sulbactam 3 gm 100 In Sodium Chloride 0.9% 100 ml @ 200 mls/hr IVPB Q6HR BROOKE Rx#:[id number] Sodium Chloride 0.9% 1, 825 000 ml @ 75 mls/hr IV . [id number] [facility]OOKE Rx#:[id number] Oral 414 2400 240 Output: Urine 1000 3900 900 Uretheral (Humphrey) 300 2400 Other: Voiding Method Indwelling Catheter Indwelling Catheter Indwelling Catheter - Exam PHYSICAL EXAMINATION: GENERAL: The patient is alert and oriented x3, not in any acute distress. Well developed, well nourished. Obese HEENT: Pupils are round and equally reacting to light. EOMI. No scleral icterus. No conjunctival pallor. Normocephalic, atraumatic. No pharyngeal erythema. No thyromegaly. CARDIOVASCULAR: S1 and S2 present. No murmurs, rubs, or gallops. PULMONARY: Chest is clear to auscultation, no wheezing or crackles. ABDOMEN: Soft, nontender, nondistended, normoactive bowel sounds. No palpable organomegaly. MUSCULOSKELETAL: No joint swelling or deformity. EXTREMITIES: No cyanosis, clubbing, or pedal edema. NEUROLOGICAL: Gross neurological examination did not reveal any focal deficits. SKIN: No rashes. - Labs CBC & Chem 7: 10/08/19 00:10 10/08/19 00:10 Labs: Abnormal Lab Results - Last 24 Hours (Table) 10/08/19 10/08/19 10/08/19 Range/Units 16:57 17:00 20:20 POC Glucose (mg/dL) 229 H 240 H (75-99) mg/dL Ur Leukocyte Esterase Large H (Negative) Urine WBC 24 H (0-5) /hpf Urine Bacteria Rare H (None) /hpf 10/09/19 10/09/19 Range/Units 06:57 11:38 POC Glucose (mg/dL) 224 H 277 H (75-99) mg/dL Ur Leukocyte Esterase (Negative) Urine WBC (0-5) /hpf Urine Bacteria (None) /hpf Microbiology - Last 24 Hours (Table) 10/08/19 00:25 Urine Culture - Preliminary Urine,Voided Gram Neg Bacilli 10/08/19 00:29 Blood Culture - Preliminary Blood No Growth after 24 hours Assessment and Plan Plan: -Sepsis secondary to Humphrey catheter related urinary tract infection. Patient will be switched to Unasyn as mentioned above. Awaiting repeat urine cultures infectious disease was consulted. 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
[2019-10-09 17:09] LABS: Glucose,Whole Blood 222 mg/dL (75-99)
[2019-10-09 20:22] LABS: Glucose,Whole Blood 245 mg/dL (75-99)
--- NOTE | 2019-10-10 00:13 | PN ---
PROGRESS NOTE DATE OF SERVICE: 10/09/2019 REASON FOR FOLLOWUP: Urinary tract infection. INTERVAL HISTORY: The patient is currently afebrile. The patient is breathing comfortably. Denies having any chest pain, shortness of breath or cough. No nausea or vomiting. No abdominal pain. No diarrhea. PHYSICAL EXAMINATION: Blood pressure 172/80 with a pulse of 109, temperature of 98.6. She is 96% on 4 L nasal cannula. General description: The patient is a middle-aged female lying in bed in no distress. Respiratory system: Unlabored breathing. Clear to auscultation anteriorly. Heart S1, S2. Regular rate and rhythm. ABDOMEN: Soft. No tenderness. LABS: Urine with gram-negative bacilli. Blood culture has been negative. DIAGNOSTIC IMPRESSION AND PLAN: Patient with gram-negative catheter associated urinary tract infection. Waiting for urine cultures to finalize, though repeat UA was not significantly positive. Culture positive for colonization. The patient clinically responding recently. Continue to monitor clinical course closely. MMODL / IJN: [id number] /
[2019-10-10] MEDS: AMPICILLIN-SULBACTAM 3 GM in SODIUM CHLORIDE 0.9% 100 ML IVPB SCH ×4 (01:00→18:29)
[2019-10-10] MEDS: SODIUM CHLORIDE 0.9% 1,000 ML IV SCH ×2 (04:12→20:13)
[2019-10-10 07:08] LABS: Glucose,Whole Blood 179 mg/dL (75-99)
[2019-10-10] MEDS: BUDESONIDE 0.5 MG/2 ML NEBU INHALATION SCH (08:46)
[2019-10-10] MEDS: ALBUTEROL NEBULIZED 2.5 MG/3 ML INHALATION SCH ×4 (08:46→20:10)
[2019-10-10] MEDS: INSULIN ASPART (NovoLOG) 100 UNIT/ML VIAL SQ SCH ×7 (10:23→20:12)
[2019-10-10] MEDS: INSULIN DETEMIR (LEVEMIR) 100 UNIT/ML SYR SQ SCH (10:23)
[2019-10-10] MEDS: ENOXAPARIN 40 MG/0.4 ML SYRINGE SQ SCH (10:23)
[2019-10-10] MEDS: PARoxetine 20 MG TAB PO SCH (10:24)
[2019-10-10] MEDS: OXYBUTYNIN XL 5 MG TAB.ER.24 PO SCH (10:24)
[2019-10-10] MEDS: LACTULOSE 20 GM/30 ML CUP PO SCH (10:24)
[2019-10-10] MEDS: ASPIRIN 81 MG PO SCH (10:24)
[2019-10-10] MEDS: FAMOTIDINE 20 MG TAB PO SCH ×2 (10:24→20:12)
[2019-10-10] MEDS: ATORVASTATIN 20 MG TAB PO SCH (10:24)
[2019-10-10] MEDS: IMIPRAMINE 25 MG TAB PO SCH ×2 (10:24→20:12)
--- NOTE | 2019-10-10 11:13 | P.PN ---
Subjective 64-year-old female admitted for urinary tract infection believed to be secondary to enterococcus although urine cultures are showing gram-negative bacilli. Patient the is on Unasyn which should help with gram-negative bacilli as well we'll await the urine cultures. Patient has a chronic Humphrey catheter from chronic urinary retention. Patient has an abdominal ultrasound which did not show any significant urinary tract pathology. 10/10/2019 Urine cultures are still pending Constitutional: Denied any fatigue denied any fever. Cardio vascular: denied any chest pain, palpitations Gastrointestinal denied any nausea vomiting Pulmonary: Denied any shortness of breath cough Neurologic denied any new focal deficits All inpatient medications were reviewed and appropriate changes in these medications as dictated in the interval history and assessment and plan. Objective - Vital Signs Vital signs: Vital Signs Temp 98.0 F 10/10/19 07:00 Pulse 102 H 10/10/19 08:59 Resp 15 10/10/19 07:00 BP 154/78 10/10/19 10:31 Pulse Ox 91 L 10/10/19 08:46 Intake & Output 10/09/19 10/10/19 10/10/19 18:59 06:59 18:59 Intake Total 240 20 Output Total 2200 4000 3300 Balance -1960 -3980 -3300 Intake: Oral 240 20 Output: Urine 2200 4000 3300 Uretheral (Humphrey) 1300 1300 Other: Voiding Method Indwelling Catheter Indwelling Catheter Indwelling Catheter - Exam PHYSICAL EXAMINATION: GENERAL: The patient is alert and oriented x3, not in any acute distress. Well developed, well nourished. Obese HEENT: Pupils are round and equally reacting to light. EOMI. No scleral icterus. No conjunctival pallor. Normocephalic, atraumatic. No pharyngeal erythema. No thyromegaly. CARDIOVASCULAR: S1 and S2 present. No murmurs, rubs, or gallops. PULMONARY: Chest is clear to auscultation, no wheezing or crackles. ABDOMEN: Soft, nontender, nondistended, normoactive bowel sounds. No palpable organomegaly. MUSCULOSKELETAL: No joint swelling or deformity. EXTREMITIES: No cyanosis, clubbing, or pedal edema. NEUROLOGICAL: Gross neurological examination did not reveal any focal deficits. SKIN: No rashes. - Labs CBC & Chem 7: 10/08/19 00:10 10/08/19 00:10 Labs: Abnormal Lab Results - Last 24 Hours (Table) 10/09/19 10/09/19 10/09/19 Range/Units 11:38 16:45 20:20 POC Glucose (mg/dL) 277 H 222 H 245 H (75-99) mg/dL 10/10/19 Range/Units 06:49 POC Glucose (mg/dL) 179 H (75-99) mg/dL Microbiology - Last 24 Hours (Table) 10/08/19 00:29 Blood Culture - Preliminary Blood No Growth after 48 hours 10/08/19 00:25 Urine Culture - Preliminary Urine,Voided Gram Neg Bacilli Assessment and Plan Plan: -Sepsis secondary to Humphrey catheter related urinary tract infection. Patient will be switched to Unasyn as mentioned above. Awaiting repeat urine cultures infectious disease was consulted. 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
[2019-10-10 11:43] LABS: Glucose,Whole Blood 246 mg/dL (75-99)
[2019-10-10 16:55] LABS: Glucose,Whole Blood 179 mg/dL (75-99)
[2019-10-10 19:58] LABS: Glucose,Whole Blood 250 mg/dL (75-99)
[2019-10-11] MEDS: AMPICILLIN-SULBACTAM 3 GM in SODIUM CHLORIDE 0.9% 100 ML IVPB SCH ×3 (00:25→12:31)
[2019-10-11 02:33] VITALS: RESP 16
[2019-10-11] MEDS: ALBUTEROL NEBULIZED 2.5 MG/3 ML INHALATION SCH ×2 (06:58→11:27)
[2019-10-11] MEDS: BUDESONIDE 0.5 MG/2 ML NEBU INHALATION SCH (06:59)
[2019-10-11 07:07] LABS: Glucose,Whole Blood 117 mg/dL (75-99)
[2019-10-11 08:01] VITALS: TEMP 98
[2019-10-11] MEDS: INSULIN ASPART (NovoLOG) 100 UNIT/ML VIAL SQ SCH ×4 (08:44→12:32)
[2019-10-11] MEDS: ASPIRIN 81 MG PO SCH (08:52)
[2019-10-11] MEDS: LACTULOSE 20 GM/30 ML CUP PO SCH (08:52)
[2019-10-11] MEDS: ENOXAPARIN 40 MG/0.4 ML SYRINGE SQ SCH (08:52)
[2019-10-11] MEDS: INSULIN DETEMIR (LEVEMIR) 100 UNIT/ML SYR SQ SCH (08:53)
[2019-10-11] MEDS: IMIPRAMINE 25 MG TAB PO SCH (08:53)
[2019-10-11] MEDS: ATORVASTATIN 20 MG TAB PO SCH (08:53)
[2019-10-11] MEDS: PARoxetine 20 MG TAB PO SCH (08:53)
[2019-10-11] MEDS: OXYBUTYNIN XL 5 MG TAB.ER.24 PO SCH (08:53)
[2019-10-11] MEDS: FAMOTIDINE 20 MG TAB PO SCH (08:53)
[2019-10-11 08:55] VITALS: BP 167/98
[2019-10-11 09:10] LABS: Basophils # (A) 0.1 k/uL (0-0.2); Basophils % (A) 1 %; Eosinophils # (A) 0.3 k/uL (0-0.7); Eosinophils % (A) 4 %; HCT 33.5 % (34.0-46.0); HGB 10.3 gm/dL (11.4-16.0); Hypochromasia Moderate; Lymphocytes % (A) 12 %; MCH 28.3 pg (25.0-35.0); MCHC 30.9 g/dL (31.0-37.0); MCV 91.8 fL (80.0-100.0); Mean Platelet Volume 9.4; Monocytes # (A) 0.4 k/uL (0-1.0); Monocytes % (A) 5 %; Neutrophils # (A) 6.1 k/uL (1.3-7.7); Neutrophils % (A) 76 %; Platelet Count 301 k/uL (150-450); RBC 3.65 m/uL (3.80-5.40)
[2019-10-11 09:25] LABS: African American GFR (CKD) >90 (>60 ml/min/1.73 sqM); Anion Gap 7 mmol/L; Blood Urea Nitrogen 8 mg/dL (7-17); Calcium 8.7 mg/dL (8.4-10.2); Carbon Dioxide 33 mmol/L (22-30); Chloride 102 mmol/L (98-107); Glucose 128 mg/dL (74-99); Non-African American GFR(CKD) >90 (>60 ml/min/1.73 sqM); Potassium 4.3 mmol/L (3.5-5.1); Sodium 142 mmol/L (137-145)
[2019-10-11 09:39] LABS: C Reactive Protein 39.9 mg/L (<10.0)
--- NOTE | 2019-10-11 10:39 | PN ---
PROGRESS NOTE DATE OF SERVICE: 10/10/2019 REASON FOR FOLLOWUP: Urinary tract infection. INTERVAL HISTORY: The patient is currently afebrile. Patient has been breathing comfortably. The patient denies having any chest pain, shortness of breath or cough. No nausea, no vomiting. No abdominal pain. No diarrhea. PHYSICAL EXAMINATION: Blood pressure 158/81 with a pulse of 100. Temperature 98.3. She is 96% on 2 L nasal cannula. General description is a middle-aged female up in the chair in no distress. Respiratory system: Unlabored breathing. Clear to auscultation anteriorly. Heart S1, S2. Regular rate and rhythm. ABDOMEN: Soft, no tenderness. LABS: No new labs have been obtained today. DIAGNOSTIC IMPRESSION AND PLAN: Patient admitted to the hospital with fever with concern for a catheter associated urinary tract infection. The patient urine did show gram-negative with sensitivities pending. To continue with Unasyn. Discharge antibiotic based on the culture report. Continue supportive care. MMODL / IJN: [id number] /
[2019-10-11 11:37] VITALS: PULSE 100
[2019-10-11 11:40] LABS: Glucose,Whole Blood 260 mg/dL (75-99)
[2019-10-11] MEDS: SODIUM CHLORIDE 0.9% 1,000 ML IV SCH (12:08)
--- NOTE | 2019-10-11 14:06 | PN ---
PROGRESS NOTE DATE OF SERVICE: 10/11/2019 REASON FOR FOLLOWUP: Urinary tract infection. INTERVAL HISTORY: The patient is currently afebrile. The patient has been breathing comfortably. The patient denies having any chest pain, shortness of breath or cough. No nausea, no vomiting. No abdominal pain, no diarrhea. PHYSICAL EXAMINATION: Blood pressure 156/90 with a pulse of 76, temperature of 98, she is 100% on 4 L nasal cannula. General description is a middle-aged female, up in the bed in no distress. RESPIRATORY SYSTEM: Unlabored breathing, clear to auscultation anteriorly. HEART: S1, S2. Regular rate and rhythm. ABDOMEN: Soft, no tenderness. LABS: Hemoglobin is 10.1, white count of 8.0, BUN of 8, creatinine 0.57. DIAGNOSTIC IMPRESSION AND PLAN: Patient with urinary tract infection. Urine has been Stenotrophomonas. The patient showed clinical improvement on the Unasyn and repeat UA has been negative. Make a short course of oral Levaquin on discharge. Continue supportive care. MMODL / IJN: [id number] /
--- NOTE | 2019-10-12 08:42 | P.DS ---
Providers Date of admission: 10/08/19 00:59 Expected date of discharge: 10/12/19 Attending physician: Harley Lee Consults: 10/08/19 11:39 Consult Physician Routine Consulting Provider: Bronson Elizalde Consult Reason/Comments: UTI Do you want consulting provider notified?: Yes Primary care physician: Zita Barboza [facility] Course: Final diagnosis -Sepsis secondary to Humphrey catheter related urinary tract infection -Uncontrolled type type 2 diabetes mellitus -Chronic urinary retention with chronic Humphrey catheter -Toxic encephalopathy from sepsis -Severe restrictive lung disease chronic hypercapnic respiratory failure -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 Patient will continue on a short course of oral antibiotics in the form of Augmentin while waiting for urine cultures are finalized and will notify patient if medication adjustments need to be made. Total time taken is 35 minutes. History of present illness 64-year-old female admitted for urinary tract infection believed to be secondary to enterococcus although urine cultures are showing gram-negative bacilli. Patient the is on Unasyn which should help with gram-negative bacilli as well we'll await the urine cultures. Patient has a chronic Humphrey catheter from chronic urinary retention. Patient has an abdominal ultrasound which did not show any significant urinary tract pathology. 10/11/2019 Patient is sitting up in the bed with no acute overnight issues. Urine culture is awaiting to finalize still showing gram-negative bacilli. Patient states that she would really like to go home today. Infectious disease was following. Patient will be sent home on a short course of oral antibiotics in the form of Augmentin and discussed with the patient about notifying her once the cultures finalize if adjustments in the medications need to be made. Patient verbalized understanding and agrees with this plan. Currently patient denies any chest emani n, shortness of breath, or palpitations. Patient is normally on 3-4 L of oxygen via nasal cannula at home. Patient is afebrile. Patient denies any nausea or vomiting and has been tolerating diet. On exam vital signs are stable. Temp is 98F, pulse is 94, respirations are 16, blood pressure is 167/98, oxygen saturation is 100% on 4 L via nasal cannula. Cardio S1, S2 are present. Respiratory system shows diminished breath sounds at the bases with no wheezing or rhonchi noted. Abdomen is soft, obese, nontender. Nervous system shows no focal deficits. Please refer to medication reconciliation sheet for a list of medications. Patient Condition at Discharge: Stable Plan - Discharge Summary Discharge Rx Participant: No New Discharge Prescriptions: New Sulfamethox-Tmp 800-160Mg [Bactrim DS 800-160 mg] 1 tab PO Q12HR #6 tab Continue Atorvastatin Calcium [Lipitor] 20 mg PO DAILY [place]-3 Fatty Acids/Fish Oil [Fish Oil 1,000 mg Softgel] 1 cap PO DAILY Imipramine [Tofranil] 25 mg PO BID Aspirin 81 mg PO DAILY PARoxetine HCL [Paxil] 20 mg PO DAILY Budesonide [Pulmicort] 0.5 mg INHALATION RT-DAILY Oxybutynin Xl [Ditropan XL] 5 mg PO DAILY Albuterol Nebulized [Ventolin Nebulized] 2.5 mg INHALATION RT-QID INSULIN LISPRO (humaLOG) [humaLOG] See Protocol SQ AC-TID L.acidoph,Paracasei, B.lactis [Probiotic] 1 cap PO DAILY Lactulose 10 gm PO DAILY metFORMIN HCL 1,000 mg PO BID Changed Insulin Glargine,Hum.rec.anlog [Lantus Solostar] 60 unit SQ DAILY #0 Discontinued Nitrofurantoin Monohyd/M-Cryst [Macrobid] 100 mg PO BID Penicillin V Potassium [Pen Vee K] 250 mg PO TID Discharge Medication List Aspirin 81 mg PO DAILY 11/10/15 [History] Atorvastatin Calcium [Lipitor] 20 mg PO DAILY 11/10/15 [History] Budesonide [Pulmicort] 0.5 mg INHALATION RT-DAILY 11/10/15 [History] Imipramine [Tofranil] 25 mg PO BID 11/10/15 [History] [place]-3 Fatty Acids/Fish Oil [Fish Oil 1,000 mg Softgel] 1 cap PO DAILY 11/10/15 [History] PARoxetine HCL [Paxil] 20 mg PO DAILY 11/10/15 [History] Albuterol Nebulized [Ventolin Nebulized] 2.5 mg INHALATION RT-QID 11/11/15 [History] Oxybutynin Xl [Ditropan XL] 5 mg PO DAILY 11/11/15 [History] INSULIN LISPRO (humaLOG) [humaLOG] See Protocol SQ AC-TID 09/07/16 [History] L.acidoph,Paracasei, B.lactis [Probiotic] 1 cap PO DAILY 09/07/16 [History] Lactulose 10 gm PO DAILY 10/08/19 [History] metFORMIN HCL 1,000 mg PO BID 10/08/19 [History] Insulin Glargine,Hum.rec.anlog [Lantus Solostar] 60 unit SQ DAILY #0 10/11/19 [Rx] Sulfamethox-Tmp 800-160Mg [Bactrim DS 800-160 mg] 1 tab PO Q12HR #6 tab 10/11/19 [Rx] Follow up Appointment(s)/Referral(s): Zita Barboza MD [Primary Care Provider] - 10/18/19 9:30 am Activity/Diet/Wound Care/Special Instructions: Activity limited until follow up follow up with primary care provider upon discharge continue antibiotics until finished continue current diet Discharge Disposition: HOME SELF-CARE
== END 2019-10-11 14:09 | disposition home or self-care (01) | DRG 698 ==
LOC: EC 23:37 → 6NMEDSUR 10-08 00:59 → 4SSUR 10-08 11:37
PROVIDERS: ADMIT Hospitalist; ATTEND Hospitalist
DX: T83.511A Infection and inflammatory reaction due to indwelling urethral catheter, initial encounter (principal); A41.4 Sepsis due to anaerobes; G92 Toxic encephalopathy; R65.20 Severe sepsis without septic shock; J96.11 Chronic respiratory failure with hypoxia; J96.12 Chronic respiratory failure with hypercapnia; G37.8 Other specified demyelinating diseases of central nervous system; N39.0 Urinary tract infection, site not specified; D86.9 Sarcoidosis, unspecified; B95.2 Enterococcus as the cause of diseases classified elsewhere; E11.65 Type 2 diabetes mellitus with hyperglycemia; E66.01 Morbid (severe) obesity due to excess calories; E78.5 Hyperlipidemia, unspecified; G47.33 Obstructive sleep apnea (adult) (pediatric); Z99.89 Dependence on other enabling machines and devices; I11.0 Hypertensive heart disease with heart failure; I25.10 Atherosclerotic heart disease of native coronary artery without angina pectoris; I35.0 Nonrheumatic aortic (valve) stenosis; I50.9 Heart failure, unspecified; J45.909 Unspecified asthma, uncomplicated; N31.9 Neuromuscular dysfunction of bladder, unspecified; R15.9 Full incontinence of feces; R32 Unspecified urinary incontinence; Y84.6 Urinary catheterization as the cause of abnormal reaction of the patient, or of later complication, without mention of misadventure at the time of the procedure; E11.40 Type 2 diabetes mellitus with diabetic neuropathy, unspecified; Z79.4 Long term (current) use of insulin; Z79.51 Long term (current) use of inhaled steroids; Z79.82 Long term (current) use of aspirin; Z79.899 Other long term (current) drug therapy; Z80.0 Family history of malignant neoplasm of digestive organs; Z82.49 Family history of ischemic heart disease and other diseases of the circulatory system; Z83.3 Family history of diabetes mellitus; Z86.14 Personal history of Methicillin resistant Staphylococcus aureus infection; Z87.440 Personal history of urinary (tract) infections; Z93.3 Colostomy status; Z99.81 Dependence on supplemental oxygen; Z98.51 Tubal ligation status; Z87.19 Personal history of other diseases of the digestive system; Z90.49 Acquired absence of other specified parts of digestive tract; Z68.38 Body mass index [BMI] 38.0-38.9, adult; R33.9 Retention of urine, unspecified; K59.09 Other constipation
CPT/HCPCS: 36415; 71046; 76700; 80048; 80053; 81001; 83605; 83880; 84145; 85025; 85610; 85730; 86140; 87040; 87077; 87086; 87186; 87502; 93005; 94640; 94660; 94760; 96361; 96365; 96375; 99285

== ENCOUNTER 2020-06-15 21:46 | Inpatient (IN) | payer MEDICARE ==
[2020-06-15] MEDS ORDERED: ACETAMINOPHEN TAB 325 MG TAB PO STA (22:35)
[2020-06-15] MEDS ORDERED: ONDANSETRON 4 MG/2 ML VIAL IVP STA (22:35)
[2020-06-15] MEDS ORDERED: MORPHINE SULFATE 2 MG/ML SYRINGE IVP STA (22:35)
--- NOTE | 2020-06-15 22:39 | ED ---
Abdominal Pain HPI - General Source: patient, family Mode of arrival: wheelchair Limitations: no limitations <Loni Marinellitianna Lopez - Last Filed: 06/16/20 01:34> <Ayleen Zarate - Last Filed: 06/16/20 06:56> - General Chief Complaint: Abdominal Pain Stated Complaint: No bowel movement, Nausea Time Seen by Provider: 06/15/20 22:01 - History of Present Illness Initial Comments: 64-year-old female with extensive past medical history including insulin- dependent diabetic, chronic oxygen supplementation 3L for COPD, and ostomy secondary to a bowel resection from obstruction presenting to the ER today for cc of abdominal pain, decreased ostomy output, nausea, vomiting. Patient states the past 3 days she's had decreased ostomy output. She states she's also been nauseated. Tonight she began throwing of very liquidy vomit, clear almost. Patient states she feels like her abdomen is distended. Patient denies knowing she had a fever, denies cough, congestion. Patient has a chronic indwelling catheter. Patient states that output has been darker and less than usual. Patient denies new SOB, denies chest pain. Denies additional complaints. Upon arrival patient febrile. (Suzan Marinelli) - Related Data Home Medications Medication Instructions Recorded Confirmed Aspirin 81 mg PO DAILY 11/10/15 10/08/19 Atorvastatin Calcium [Lipitor] 20 mg PO DAILY 11/10/15 10/08/19 Budesonide [Pulmicort] 0.5 mg INHALATION RT-DAILY 11/10/15 10/08/19 Imipramine [Tofranil] 25 mg PO BID 11/10/15 10/08/19 [place]-3 Fatty Acids/Fish Oil [Fish 1 cap PO DAILY 11/10/15 10/08/19 Oil 1,000 mg Softgel] PARoxetine HCL [Paxil] 20 mg PO DAILY 11/10/15 10/08/19 Albuterol Nebulized [Ventolin 2.5 mg INHALATION RT-QID 11/11/15 10/08/19 Nebulized] Oxybutynin Xl [Ditropan XL] 5 mg PO DAILY 11/11/15 10/08/19 INSULIN LISPRO (humaLOG) [humaLOG] See Protocol SQ AC-TID 09/07/16 10/08/19 L.acidoph,Paracasei, B.lactis 1 cap PO DAILY 09/07/16 10/08/19 [Probiotic] Lactulose 10 gm PO DAILY 10/08/19 10/08/19 metFORMIN HCL 1,000 mg PO BID 10/08/19 10/08/19 Previous Rx's Medication Instructions Recorded Insulin Glargine,Hum.rec.anlog 60 unit SQ DAILY #0 10/11/19 [Lantus Solostar] Sulfamethox-Tmp 800-160Mg [Bactrim 1 tab PO Q12HR #6 tab 10/11/19 DS 800-160 mg] Allergies Allergy/AdvReac Type Severity Reaction Status Date / Time No Known Allergies Allergy Verified 06/15/20 21:57 Review of Systems ROS Other: All systems not noted in ROS Statement are negative. <Suzan Marinelli - Last Filed: 06/16/20 01:34> ROS Other: All systems not noted in ROS Statement are negative. <Ayleen Zarate P - Last Filed: 06/16/20 06:56> ROS Statement: Those systems with pertinent positive or pertinent negative responses have been documented in the HPI. 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, IDDM type II, neuropathy R leg, sarcoidosis/lungs, bronchitis, aortic stenosis/murmur, past chronic constipation, colostomy, occasional incontinence of stool, lower GI bleed, chronic urinary incontinence/neurogenic bladder/chronic Humphrey/frequent urinary tract infections/sepsis, anemia, gait dysfunction-pt is lifted to electric w/c, obstructive sleep apnea with Cpap use, chronic hydronephrosis of the kidneys, colostomy History of Any Multi-Drug Resistant Organisms: C-DIFF, MRSA Date of last positivie culture/infection: 11/2015 MDRO Source:: c-diff, mrsa 2010 in blood Past Surgical History: No Surgical Hx Reported, Bowel Resection, Tubal Ligation Additional Past Surgical History / Comment(s): 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, EGD, colonoscopies, bronchoscopies x3, carpal tunnel release-laterallity unknown, D&C Past Anesthesia/Blood Transfusion Reactions: No Reported Reaction Past Psychological History: Anxiety, Depression Smoking Status: Never smoker Past Alcohol Use History: None Reported Past Drug Use History: None Reported - Past Family History Father Family Medical History: Cancer Additional Family Medical History / Comment(s): from pancreatic cancer Mother Family Medical History: Congestive Heart Failure (CHF), Diabetes Mellitus, Dialysis Additional Family Medical History / Comment(s): from CHF <Suzan Marinelli - Last Filed: 06/16/20 01:34> General Exam Limitations: no limitations <Suzan Marinelli - Last Filed: 06/16/20 01:34> - General Exam Comments Initial Comments: General: The patient is awake and alert, in no distress Eye: +3 mm pupils are equal, round and reactive to light, extra-ocular movements are intact. No nystagmus. There is normal conjunctiva bilaterally. No signs of icterus. Ears, nose, mouth and throat: There are moist mucous membranes and no oral lesions. Neck: The neck is supple, there is no tenderness or JVD. Cardiovascular: There is a regular rate and rhythm. No murmur, rub or gallop is appreciated. Respiratory: Lungs are clear to auscultation, respirations are non-labored, breath sounds are equal. No wheezes, stridor, rales, or rhonchi. Gastrointestinal: Soft, distended abdomen, diffuse mild tenderness to palpation of the abdomen, abdomen is without masses or organomegaly noted. There is no rebound or guarding present. Musculoskeletal: Normal ROM, no tenderness. Strength 5/5. Sensation intact. Radial pulses equal bilaterally 2+. Neurological: A&O x 3. CN II-XII intact grossly, There are no obvious motor or sensory deficits. Coordination appears grossly intact. Speech is slow drawn out and patients baseline per grandson/ bedside. Skin: Skin is warm and dry and no rashes or lesions are noted. Psychiatric: Cooperative, appropriate mood & affect, normal judgment. (IsisSuzan Lopez) Course Vital Signs 06/15/20 06/16/20 06/16/20 21:54 01:00 01:33 Temperature 100.2 F H 98.9 F Pulse Rate 110 H 101 H Respiratory 20 18 Rate Blood Pressure 159/79 146/89 O2 Sat by Pulse 93 L 99 Oximetry Medical Decision Making - Lab Data Result diagrams: 06/15/20 23:01 06/15/20 23:01 <Suzan Marinelli - Last Filed: 06/16/20 01:34> - Lab Data Result diagrams: 06/15/20 23:01 06/15/20 23:01 <Ayleen Zarate - Last Filed: 06/16/20 06:56> - Medical Decision Making 64yo female presenting today for cc of abdominal distention decreased ostomy out put, 1 episode vomiting. Febrile on arrival. PNA on cxr. initiated on antibiotics. blood cultures pending. lactic acid elevated. Patient case discussed with Dr. Zarate who is agreeable to admission for IV antibiotics given significant comorbidities. Patient agreeable to care plan and admission. (Suzan Marinelli) Patient to be admitted for sepsis secondary to pneumonia and UTI. Patient received IV antibiotics and fluids. Patient care was discussed with Ct for [facility] hospitalist group who accepts the admission. (Ayleen Zarate) - Lab Data Lab Results 06/15/20 06/15/20 06/15/20 Range/Units 23:01 23:01 23:01 WBC 13.0 H (3.8-10.6) k/uL RBC 4.31 (3.80-5.40) m/uL Hgb 12.6 (11.4-16.0) gm/dL Hct 39.1 (34.0-46.0) % MCV 90.8 (80.0-100.0) fL MCH 29.2 (25.0-35.0) pg MCHC 32.2 (31.0-37.0) g/dL RDW 14.1 (11.5-15.5) % Plt Count 283 (150-450) k/uL Neutrophils % 81 % Lymphocytes % 9 % Monocytes % 5 % Eosinophils % 3 % Basophils % 1 % Neutrophils # 10.6 H (1.3-7.7) k/uL Lymphocytes # 1.2 (1.0-4.8) k/uL Monocytes # 0.7 (0-1.0) k/uL Eosinophils # 0.4 (0-0.7) k/uL Basophils # 0.1 (0-0.2) k/uL PT 9.7 (9.0-12.0) sec INR 0.9 (<1.2) APTT 31.9 H (22.0-30.0) sec Sodium 135 L (137-145) mmol/L Potassium 4.3 (3.5-5.1) mmol/L Chloride 96 L (98-107) mmol/L Carbon Dioxide 28 (22-30) mmol/L Anion Gap 11 mmol/L BUN 13 (7-17) mg/dL Creatinine 0.72 (0.52-1.04) mg/dL Est GFR (CKD-EPI)AfAm >90 (>60 ml/min/1.73 sqM) Est GFR (CKD-EPI)NonAf >90 (>60 ml/min/1.73 sqM) Glucose 162 H (74-99) mg/dL Lactic Ac Sepsis Rflx Plasma Lactic Acid George (0.7-2.0) mmol/L Calcium 9.3 (8.4-10.2) mg/dL Total Bilirubin 0.4 (0.2-1.3) mg/dL AST 31 (14-36) U/L ALT 23 (4-34) U/L Alkaline Phosphatase 106 (38-126) U/L Total Protein 7.4 (6.3-8.2) g/dL Albumin 4.1 (3.5-5.0) g/dL Amylase 37 (30-110) U/L Lipase 51 (23-300) U/L 06/15/20 06/15/20 Range/Units 23:01 23:55 WBC (3.8-10.6) k/uL RBC (3.80-5.40) m/uL Hgb (11.4-16.0) gm/dL Hct (34.0-46.0) % MCV (80.0-100.0) fL MCH (25.0-35.0) pg MCHC (31.0-37.0) g/dL RDW (11.5-15.5) % Plt Count (150-450) k/uL Neutrophils % % Lymphocytes % % Monocytes % % Eosinophils % % Basophils % % Neutrophils # (1.3-7.7) k/uL Lymphocytes # (1.0-4.8) k/uL Monocytes # (0-1.0) k/uL Eosinophils # (0-0.7) k/uL Basophils # (0-0.2) k/uL PT (9.0-12.0) sec INR (<1.2) APTT (22.0-30.0) sec Sodium (137-145) mmol/L Potassium (3.5-5.1) mmol/L Chloride (98-107) mmol/L Carbon Dioxide (22-30) mmol/L Anion Gap mmol/L BUN (7-17) mg/dL Creatinine (0.52-1.04) mg/dL Est GFR (CKD-EPI)AfAm (>60 ml/min/1.73 sqM) Est GFR (CKD-EPI)NonAf (>60 ml/min/1.73 sqM) Glucose (74-99) mg/dL Lactic Ac Sepsis Rflx Y Plasma Lactic Acid George 2.5 H* (0.7-2.0) mmol/L Calcium (8.4-10.2) mg/dL Total Bilirubin (0.2-1.3) mg/dL AST (14-36) U/L ALT (4-34) U/L Alkaline Phosphatase (38-126) U/L Total Protein (6.3-8.2) g/dL Albumin (3.5-5.0) g/dL Amylase (30-110) U/L Lipase (23-300) U/L Disposition Is patient prescribed a controlled substance at d/c from ED?: No Time of Disposition: 00:45 Decision to Admit Reason: Admit from EC Decision Date: 06/16/20 Decision Time: 00:45 <Suzan Marinelli L - Last Filed: 06/16/20 01:34> <Ayleen Zarate P - Last Filed: 06/16/20 06:56> Clinical Impression: Nausea, Vomiting, Fever, Pneumonia Disposition: ADMITTED IP TO THIS [facility] Condition: Stable
[2020-06-15 23:12] LABS: Basophils # (A) 0.1 k/uL (0-0.2); Basophils % (A) 1 %; Eosinophils # (A) 0.4 k/uL (0-0.7); Eosinophils % (A) 3 %; HCT 39.1 % (34.0-46.0); HGB 12.6 gm/dL (11.4-16.0); Lymphocytes # (A) 1.2 k/uL (1.0-4.8); Lymphocytes % (A) 9 %; MCH 29.2 pg (25.0-35.0); MCHC 32.2 g/dL (31.0-37.0); MCV 90.8 fL (80.0-100.0); Mean Platelet Volume 8.2; Monocytes # (A) 0.7 k/uL (0-1.0); Monocytes % (A) 5 %; Neutrophils # (A) 10.6 k/uL (1.3-7.7); Neutrophils % (A) 81 %; Platelet Count 283 k/uL (150-450); RBC 4.31 m/uL (3.80-5.40); RDW 14.1 % (11.5-15.5)
[2020-06-15] MEDS ORDERED: SODIUM CHLORIDE 0.9% 500 ML 500 ML IV ONE (23:16)
[2020-06-15 23:20] LABS: ALT 23 U/L (4-34); AST 31 U/L (14-36); African American GFR (CKD) >90 (>60 ml/min/1.73 sqM); Albumin 4.1 g/dL (3.5-5.0); Alkaline Phosphatase 106 U/L (38-126); Amylase 37 U/L (30-110); Anion Gap 11 mmol/L; Blood Urea Nitrogen 13 mg/dL (7-17); Calcium 9.3 mg/dL (8.4-10.2); Carbon Dioxide 28 mmol/L (22-30); Chloride 96 mmol/L (98-107); Glucose 162 mg/dL (74-99); Non-African American GFR(CKD) >90 (>60 ml/min/1.73 sqM); Potassium 4.3 mmol/L (3.5-5.1); Sodium 135 mmol/L (137-145); Total Bilirubin 0.4 mg/dL (0.2-1.3); Total Protein 7.4 g/dL (6.3-8.2)
[2020-06-15 23:22] LABS: INR 0.9 (<1.2); Partial Thromboplastin Time 31.9 sec (22.0-30.0); Prothrombin Time 9.7 sec (9.0-12.0)
--- NOTE | 2020-06-15 23:47 | XR ---
EXAMINATION TYPE: XR chest 2V DATE OF EXAM: 06/15/2020 COMPARISON: 10/08/2019 HISTORY: Fever TECHNIQUE: 2 views FINDINGS: Exam is limited by patient's size. Heart is probably enlarged. There is some coarsening of interstitial markings. There is no gross heart failure. There is no pleural effusion. There is poor i nspiration. IMPRESSION: Coarse lung markings slightly increased on the right side compared to old exam. Poor insp iration. No obvious heart failure. Right side mild interstitial pneumonia is possible.
[2020-06-16] MEDS: SODIUM CHLORIDE 0.9% 1,000 ML IV SCH ×2 (00:13→17:09)
--- NOTE | 2020-06-16 00:16 | CT ---
EXAMINATION TYPE: CT abdomen pelvis w con DATE OF EXAM: 06/15/2020 COMPARISON: 11/10/2015 HISTORY: pain CT DLP: 2367.5 mGycm Automated exposure control for dose reduction was used. CONTRAST: Performed with IV Contrast, patient injected with 100 mL of Isovue 300. Images obtained from the diaphragm to the floor the pelvis with IV contrast. There is some mild atelectasis at the lung bases. Liver spleen stomach pancreas gallbladder appear is intact. Bile ducts are not dilated. There is mixed density left adrenal mass that measures 3 cm. The kidneys have normal size. There is r ight-sided hydronephrosis. There is right side perinephric mild edema. There is mild right side periu reteral edema. There is Humphrey catheter in the urinary bladder. Bladder is empty. I see no obstructing calculus. There is no renal atrophy. There is 2 mm calculus posterior left kidney. There is no retro peritoneal adenopathy. There is left side colostomy. There is retained fecal material in the large alin wel. There is rectal stump that contains calcification and retained material and measures up to 5.4 c m in diameter. There is no mesenteric edema. There is no evidence of free air. There is no ascites. There is 2 cm ca lcified uterine fundal fibroid. Uterus is anteverted. The lumbar spine is intact. Bony pelvis is inta ct. Appendix is not seen. IMPRESSION: Constipation. There is left side colostomy with parastomal hernia containing omental fat. There is chronic right side hydronephrosis and hydroureter without significant loss of renal function . This has progressed compared to old exam. No obstructing calculus. Rectal stump contains calcification and debris. There is chronic atelectasis at the lung bases similar to old exam.
[2020-06-16] MEDS ORDERED: AZITHROMYCIN 500 MG in SODIUM CHLORIDE 0.9% 250 ML IVPB STA (00:42)
[2020-06-16] MEDS ORDERED: NALOXONE 0.4 MG/ML 1 ML VIAL IV PRN (00:43)
[2020-06-16] MEDS ORDERED: SODIUM CHLORIDE 0.9% 500 ML 500 ML IV ONE ×2 (01:35)
[2020-06-16 01:40] LABS: Appearance,Urine Cloudy (Clear); Bilirubin,Urine Negative (Negative); Blood,Urine Large (Negative); Color,Urine Yellow; Glucose,Urine (UA) Negative (Negative); Ketones,Urine Negative (Negative); Leukocyte Esterase,Urine Large (Negative); Nitrite,Urine Negative (Negative); PH, Urine 6.5 (5.0-8.0); Protein,Urine Trace (Negative); RBC,Urine >182 /hpf (0-5); Squamous Epithelial Cell,Urine 1 /hpf (0-4); Urobilinogen,Urine <2.0 mg/dL (<2.0); WBC,Urine >182 /hpf (0-5)
[2020-06-16] MEDS ORDERED: ONDANSETRON 4 MG/2 ML VIAL IVP STA (01:44)
[2020-06-16] MEDS ORDERED: PANTOPRAZOLE 40 MG/10 ML VIAL IVP STA (01:44)
[2020-06-16 02:26] LABS: Glucose,Whole Blood 139 mg/dL (75-99)
[2020-06-16 07:00] LABS: Glucose,Whole Blood 211 mg/dL (75-99)
[2020-06-16] MEDS: INSULIN ASPART (NovoLOG) 100 UNIT/ML VIAL SQ SCH ×4 (07:29→21:33)
[2020-06-16 11:23] LABS: Glucose,Whole Blood 162 mg/dL (75-99)
[2020-06-16] MEDS ORDERED: KETOROLAC 15 MG/ML 1 ML VIAL IVP PRN (13:48)
[2020-06-16] MEDS ORDERED: traMADol 50 MG TAB PO PRN (13:48)
[2020-06-16] MEDS ORDERED: ACETAMINOPHEN TAB 325 MG TAB PO PRN (13:49)
--- NOTE | 2020-06-16 15:47 | P.HPIM ---
History of Present Illness H&P Date: 06/16/20 Chief Complaint: Abdominal pain 64-year-old female with multiple medical problems including COPD, history of previous bowel resection due to sigmoid volvulus, type 2 diabetes mellitus, chronic neurogenic bladder with chronic Humphrey catheter, chronic hydronephrosis, KEVIN on CPAP. Since to the hospital complaint of abdominal pain, decreased output from ostomy. For the last 3 days. Reported having nausea with liquidy emesis. Denies subjective fever and chills. CT abdomen pelvis and constipation, peristomal hernia with omental fat. An known chronic right-sided hydronephrosis and hydroureter. Patient was found to have fever 100.2, elevated white count 13. Has known hi story of recurrent complicated UTIs with enterococcus. Her chest x-ray did show a possible infiltrate, however feelers low probability of pneumonia, rather source of sepsis is likely due to urinary tract infection. She has been started empirically on antimicrobial therapy with Unasyn given her history of enterococcus. Currently afebrile and hemodynamically stable. Humphrey catheter was replaced and emergency department. Patient is yet to have output from ostomy and is still complaining of abdominal discomfort. Review of Systems Review Of Systems: Constitutional: No fever, no chills, no night sweats. EENT: No headache. No blurred vision or double vision, no loss of vision. no dizziness. No nasal drainage or congestion. No sore throat. Lungs: No shortness of breath, cough, no sputum production. No wheezing. Cardiovascular: No chest pain, no lower extremity edema. No palpitations. No paroxysmal nocturnal dyspnea. No orthopnea. No lightheadedness or dizziness. No syncopal episodes. Abdominal: Abdominal pain. Nausea and vomiting now improved. Ileostomy and colostomy with decreased output No bloody or tarry stools.. No loss of appetite. Genitourinary: Chronic Humphrey catheter Musculoskeletal: No myalgias. No muscle weakness, no gait dysfunction, no frequent falls. Integumentary: No wounds, no lesions. No rash or pruritus. No unusual bruising. No change in hair or nails. Neurologic: No aphasia. No facial droop. No change in mentation. No head injury. No headache. No paralysis. No paresthesia. Psychiatric: No depression. No anxiety. No mood swings. Endocrine: No weight change. No excessive sweating or thirst. 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, IDDM type II, neuropathy R leg, sarcoidosis/lungs, bronchitis, aortic stenosis/murmur, past chronic constipation, colostomy, occasional incontinence of stool, lower GI bleed, chronic urinary incontinence/neurogenic bladder/chronic Humphrey/frequent urinary tract infections/sepsis, anemia, gait dysfunction-pt is lifted to electric w/c, obstructive sleep apnea with Cpap use, chronic hydronephrosis of the kidneys, colostomy History of Any Multi-Drug Resistant Organisms: C-DIFF, MRSA Date of last positivie culture/infection: 11/2015 MDRO Source:: c-diff, mrsa 2011 in blood Past Surgical History: No Surgical Hx Reported, Bowel Resection, Tubal Ligation Additional Past Surgical History / Comment(s): 2015 sigmoid volvulus with bowel resection/colostomy, EGD, colonoscopies, bronchoscopies x3, carpal tunnel release-laterallity unknown, D&C Past Anesthesia/Blood Transfusion Reactions: No Reported Reaction Past Psychological History: Anxiety, Depression Smoking Status: Never smoker Past Alcohol Use History: None Reported Past Drug Use History: None Reported - Past Family History Father Family Medical History: Cancer Additional Family Medical History / Comment(s): from pancreatic cancer Mother Family Medical History: Congestive Heart Failure (CHF), Diabetes Mellitus, Dialysis Additional Family Medical History / Comment(s): from CHF Medications and Allergies Home Medications Medication Instructions Recorded Confirmed Type Aspirin 81 mg PO DAILY 11/10/15 06/16/20 History Atorvastatin Calcium [Lipitor] 20 mg PO DAILY 11/10/15 06/16/20 History Budesonide [Pulmicort] 0.5 mg INHALATION RT-QID PRN 11/10/15 06/16/20 History Imipramine [Tofranil] 25 mg PO BID 11/10/15 06/16/20 History [place]-3 Fatty Acids/Fish Oil [Fish 1 cap PO DAILY 11/10/15 06/16/20 History Oil 1,000 mg Softgel] PARoxetine HCL [Paxil] 20 mg PO DAILY 11/10/15 06/16/20 History Albuterol Nebulized [Ventolin 2.5 mg INHALATION RT-QID PRN 11/11/15 06/16/20 History Nebulized] Oxybutynin Xl [Ditropan XL] 5 mg PO DAILY 11/11/15 06/16/20 History INSULIN LISPRO (humaLOG) [humaLOG] See Protocol SQ AC-TID 09/07/16 06/16/20 History Lactulose 10 gm PO DAILY 10/08/19 06/16/20 History metFORMIN HCL 1,000 mg PO BID 10/08/19 06/16/20 History Insulin Glargine,Hum.rec.anlog 45 unit SQ DAILY 06/16/20 06/16/20 History [Lantus Solostar] Allergies Allergy/AdvReac Type Severity Reaction Status Date / Time No Known Allergies Allergy Verified 06/16/20 09:01 Physical Exam Vitals: Vital Signs Temp Pulse Pulse Resp BP BP Pulse Ox 06/16/20 14:55 98.6 F 85 18 110/73 95 06/16/20 07:00 97.4 F L 103 H 16 115/67 99 06/16/20 02:20 98.4 F 105 H 18 117/67 99 06/16/20 01:33 98.9 F 06/16/20 01:00 101 H 18 146/89 99 06/15/20 21:54 100.2 F H 110 H 20 159/79 93 L Intake and Output 06/16/20 06/16/20 06/16/20 06:59 14:59 22:59 Output Total 250 410 Balance -250 -410 Output: Urine 250 410 Other: Voiding Method Indwelling Catheter Indwelling Catheter Weight 99.79 kg Gen: This is a [ ] HEENT: Head is atraumatic, normocephalic. Pupils equal, round. Sclerae is anicteric. NECK: Supple. No JVD. No lymphadenopathy. No thyromegaly. LUNGS: Clear to auscultation. No wheezes or rhonchi. No intercostal retractions. HEART: Regular rate and rhythm. No murmur. ABDOMEN: Soft. Distended, Bowel sounds are present. No masses. No colostomy and ileostomy no rebound GENITOURINARY: Chronic indwelling Humphrey catheter EXTREMITIES: No pedal edema. No calf tenderness. NEUROLOGICAL: Patient is awake, alert and oriented x3. Cranial nerves 2 through 12 are grossly intact. Results CBC & Chem 7: 06/15/20 23:01 06/15/20 23:01 Labs: Abnormal Lab Results - Last 24 Hours (Table) 06/15/20 06/15/20 06/15/20 Range/Units 23:01 23:01 23:01 WBC 13.0 H (3.8-10.6) k/uL Neutrophils # 10.6 H (1.3-7.7) k/uL APTT 31.9 H (22.0-30.0) sec Sodium 135 L (137-145) mmol/L Chloride 96 L (98-107) mmol/L Glucose 162 H (74-99) mg/dL POC Glucose (mg/dL) (75-99) mg/dL Plasma Lactic Acid George (0.7-2.0) mmol/L Urine Appearance (Clear) Urine Protein (Negative) Urine Blood (Negative) Ur Leukocyte Esterase (Negative) Urine RBC (0-5) /hpf Urine WBC (0-5) /hpf Urine WBC Clumps (None) /hpf 06/15/20 06/16/20 06/16/20 Range/Units 23:01 01:30 02:25 WBC (3.8-10.6) k/uL Neutrophils # (1.3-7.7) k/uL APTT (22.0-30.0) sec Sodium (137-145) mmol/L Chloride (98-107) mmol/L Glucose (74-99) mg/dL POC Glucose (mg/dL) 139 H (75-99) mg/dL Plasma Lactic Acid George 2.5 H* (0.7-2.0) mmol/L Urine Appearance Cloudy H (Clear) Urine Protein Trace H (Negative) Urine Blood Large H (Negative) Ur Leukocyte Esterase Large H (Negative) Urine RBC >182 H (0-5) /hpf Urine WBC >182 H (0-5) /hpf Urine WBC Clumps Many H (None) /hpf 06/16/20 06/16/20 Range/Units 06:59 11:22 WBC (3.8-10.6) k/uL Neutrophils # (1.3-7.7) k/uL APTT (22.0-30.0) sec Sodium (137-145) mmol/L Chloride (98-107) mmol/L Glucose (74-99) mg/dL POC Glucose (mg/dL) 211 H 162 H (75-99) mg/dL Plasma Lactic Acid George (0.7-2.0) mmol/L Urine Appearance (Clear) Urine Protein (Negative) Urine Blood (Negative) Ur Leukocyte Esterase (Negative) Urine RBC (0-5) /hpf Urine WBC (0-5) /hpf Urine WBC Clumps (None) /hpf Microbiology - Last 24 Hours (Table) 06/16/20 01:30 Urine Culture - Preliminary Urine,Clean Catch Assessment and Plan Plan: -Abdominal pain was probably due to constipation, possible fecal impaction. Decreased output from ostomy, has colostomy and colostomy from bowel resection due to sigmoid volvulus in 2016. We'll start on bowel regimen with MiraLAX, lactulose as needed. No evidence of obstruction on CT. -Sepsis secondary to acute complicated UTI: Patient has history of UTI with Enterococcus faecalis. She'll be started on empiric antimicrobial therapy with Unasyn, follow with cultures and clinical condition. Humphrey catheter was replaced. IV hydration with normal saline. -Chronic Humphrey catheter secondary to chronic neurogenic bladder chronic right- sided hydronephrosis and hydroureter secondary to this -Right-sided atelectasis: Low clinical probability of pneumonia. 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
[2020-06-16] MEDS: BUDESONIDE 0.5 MG/2 ML NEBU INHALATION SCH ×2 (16:23→19:58)
[2020-06-16 16:39] LABS: Glucose,Whole Blood 177 mg/dL (75-99)
[2020-06-16] MEDS: HEPARIN SODIUM,PORCINE 5,000 UNIT/ML 1 ML VIAL SQ SCH (17:08)
[2020-06-16] MEDS: AMPICILLIN-SULBACTAM 3 GM in SODIUM CHLORIDE 0.9% 100 ML IVPB SCH (17:08)
[2020-06-16 21:01] LABS: Glucose,Whole Blood 214 mg/dL (75-99)
[2020-06-16] MEDS: LACTULOSE 20 GM/30 ML CUP PO SCH (21:33)
[2020-06-16] MEDS: FAMOTIDINE 20 MG TAB PO SCH (21:33)
[2020-06-16] MEDS: IMIPRAMINE 25 MG TAB PO SCH (21:33)
[2020-06-16] MEDS: metFORMIN 500 MG TAB PO SCH (21:33)
[2020-06-16 23:09] LABS: Hemoglobin A1C 7.4 % (4.0-6.0)
[2020-06-17] MEDS: AMPICILLIN-SULBACTAM 3 GM in SODIUM CHLORIDE 0.9% 100 ML IVPB SCH ×4 (01:31→20:09)
[2020-06-17] MEDS: HEPARIN SODIUM,PORCINE 5,000 UNIT/ML 1 ML VIAL SQ SCH ×3 (01:31→15:43)
[2020-06-17 02:12] LABS: Glucose,Whole Blood 195 mg/dL (75-99)
[2020-06-17] MEDS: SODIUM CHLORIDE 0.9% 1,000 ML IV SCH ×2 (06:26→15:41)
[2020-06-17 07:12] LABS: Basophils % (A) 1 %; Eosinophils # (A) 0.2 k/uL (0-0.7); Eosinophils % (A) 3 %; HGB 10.9 gm/dL (11.4-16.0); Hypochromasia Slight; Lymphocytes # (A) 0.9 k/uL (1.0-4.8); Lymphocytes % (A) 12 %; MCH 29.6 pg (25.0-35.0); MCV 92.6 fL (80.0-100.0); Mean Platelet Volume 9.3; Monocytes # (A) 0.5 k/uL (0-1.0); Monocytes % (A) 7 %; Neutrophils # (A) 5.3 k/uL (1.3-7.7); Neutrophils % (A) 76 %; Platelet Count 207 k/uL (150-450); RBC 3.67 m/uL (3.80-5.40); RDW 14.3 % (11.5-15.5); WBC 6.9 k/uL (3.8-10.6)
[2020-06-17 07:45] LABS: Glucose,Whole Blood 185 mg/dL (75-99)
[2020-06-17] MEDS: BUDESONIDE 0.5 MG/2 ML NEBU INHALATION SCH ×2 (08:18→19:14)
[2020-06-17] MEDS: ALBUTEROL NEBULIZED 2.5 MG/3 ML INHALATION PRN (08:18)
[2020-06-17] MEDS: FAMOTIDINE 20 MG TAB PO SCH ×2 (08:32→20:09)
[2020-06-17] MEDS: LACTULOSE 20 GM/30 ML CUP PO SCH ×2 (08:32→20:09)
[2020-06-17] MEDS: INSULIN ASPART (NovoLOG) 100 UNIT/ML VIAL SQ SCH ×4 (08:33→20:07)
[2020-06-17] MEDS: INSULIN DETEMIR (LEVEMIR) 100 UNIT/ML SYR SQ SCH (08:33)
[2020-06-17] MEDS: PARoxetine 20 MG TAB PO SCH (08:34)
[2020-06-17] MEDS: metFORMIN 500 MG TAB PO SCH ×2 (08:34→20:09)
[2020-06-17] MEDS: ATORVASTATIN 20 MG TAB PO SCH (08:34)
[2020-06-17] MEDS: OXYBUTYNIN XL 5 MG TAB.ER.24 PO SCH (08:34)
[2020-06-17] MEDS: IMIPRAMINE 25 MG TAB PO SCH ×2 (08:34→20:09)
[2020-06-17] MEDS: ASPIRIN 81 MG PO SCH (08:34)
[2020-06-17] MEDS ORDERED: LACTULOSE 20 GM/30 ML CUP PO SCH (09:00)
--- NOTE | 2020-06-17 09:08 | P.CONS ---
History of Present Illness - Reason for Consult Consult date: 06/16/20 Complicated infec urinary tracttion Requesting physician: Treasure Sampson - Chief Complaint Abdominal pain x few days - History of Present Illness Patient is a 64 year female with a past medical history significant for insulin-dependent diabetes mellitus COPD history of bowel obstruction requiring diverting colostomy, patient presented to the ER at [facility] with symptoms of abdominal pain decreased output from the ostomy along with nausea and vomiting, the patient sed rate has been going on for about 3 days before presentation to the hospital patient described her abdominal pain. More of a colicky intensity of almost 7-8 out of 10 and no radiation patient also have a chronic indwelling Humphrey catheter for urinary retention and was noticed to have darker urine with these symptoms the patient was evaluated by the ER physician on arrival to the ER the patient did have a fever of 100.2F, speech have elevated white count of 13,000 patient did have a significantly positive UA, patient did have CT of abdominal pelvis which shows constipation chronic right-sided hydronephrosis and hydroureter, patient did receive a dose of Rocephin 2 g in the ER antibiotic subsequently has been switched over to Unasyn 3 g every 8 hours infectious disease was consulted for further management of antibiotic therapy Review of Systems Positive point has been mentioned in the HPI rest of the systems are negative 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, IDDM type II, neuropathy R leg, sarcoidosis/lungs, bronchitis, aortic stenosis/murmur, past chronic constipation, colostomy, occasional incontinence of stool, lower GI bleed, chronic urinary incontinence/neurogenic bladder/chronic Humphrey/frequent urinary tract infections/sepsis, anemia, gait dysfunction-pt is lifted to electric w/c, obstructive sleep apnea with Cpap use, chronic hydronephrosis of the kidneys, colostomy History of Any Multi-Drug Resistant Organisms: C-DIFF, 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 MDRO Source:: c-diff, mrsa 2010 in blood Past Surgical History: No Surgical Hx Reported, Bowel Resection, Tubal Ligation Additional Past Surgical History / Comment(s): 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, EGD, colonoscopies, bronchoscopies x3, carpal tunnel release-laterallity unknown, D&C Past Anesthesia/Blood Transfusion Reactions: No Reported Reaction Past Psychological History: Anxiety, Depression Smoking Status: Never smoker Past Alcohol Use History: None Reported Past Drug Use History: None Reported - Past Family History Father Family Medical History: Cancer Additional Family Medical History / Comment(s): from pancreatic cancer Mother Family Medical History: Congestive Heart Failure (CHF), Diabetes Mellitus, Dialysis Additional Family Medical History / Comment(s): from CHF Medications and Allergies Home Medications Medication Instructions Recorded Confirmed Type Aspirin 81 mg PO DAILY 11/10/15 06/16/20 History Atorvastatin Calcium [Lipitor] 20 mg PO DAILY 11/10/15 06/16/20 History Budesonide [Pulmicort] 0.5 mg INHALATION RT-QID PRN 11/10/15 06/16/20 History Imipramine [Tofranil] 25 mg PO BID 11/10/15 06/16/20 History [place]-3 Fatty Acids/Fish Oil [Fish 1 cap PO DAILY 11/10/15 06/16/20 History Oil 1,000 mg Softgel] PARoxetine HCL [Paxil] 20 mg PO DAILY 11/10/15 06/16/20 History Albuterol Nebulized [Ventolin 2.5 mg INHALATION RT-QID PRN 11/11/15 06/16/20 History Nebulized] Oxybutynin Xl [Ditropan XL] 5 mg PO DAILY 11/11/15 06/16/20 History INSULIN LISPRO (humaLOG) [humaLOG] See Protocol SQ AC-TID 09/07/16 06/16/20 History Lactulose 10 gm PO DAILY 10/08/19 06/16/20 History metFORMIN HCL 1,000 mg PO BID 10/08/19 06/16/20 History Insulin Glargine,Hum.rec.anlog 45 unit SQ DAILY 06/16/20 06/16/20 History [Lantus Solostar] Allergies Allergy/AdvReac Type Severity Reaction Status Date / Time No Known Allergies Allergy Verified 06/16/20 09:01 Physical Exam Vitals: Vital Signs Temp Pulse Pulse Resp BP BP Pulse Ox 06/16/20 07:00 97.4 F L 103 H 16 115/67 99 06/16/20 02:20 98.4 F 105 H 18 117/67 99 06/16/20 01:33 98.9 F 06/16/20 01:00 101 H 18 146/89 99 06/15/20 21:54 100.2 F H 110 H 20 159/79 93 L Intake and Output 06/15/20 06/16/20 06/16/20 22:59 06:59 14:59 Output Total 250 410 Balance -250 -410 Output: Urine 250 410 Other: Voiding Method Indwelling Catheter Indwelling Catheter Weight 99.79 kg 99.79 kg GENERAL DESCRIPTION: Middle-aged female lying in bed, no distress. No tachypnea or accessory muscle of respiration use. HEENT: Shows Pallor , no scleral icterus. Oral mucous membrane is dry. No pharyngeal erythema or thrush NECK: Trachea central, no thyromegaly. LUNGS: Unlabored breathing. Clear to auscultation anteriorly. No wheeze or crackle. HEART: S1, S2, regular rate and rhythm. No loud murmur ABDOMEN: Soft, no tenderness , guarding or rigidity, no organomegaly EXTREMITIES: No edema of feet. SKIN: No rash, no masses palpable. NEUROLOGICAL: The patient is awake, alert, oriented x3, mood and affect normal. Results CBC & Chem 7: 06/17/20 05:46 06/15/20 23:01 Labs: Abnormal Lab Results - Last 24 Hours (Table) 06/15/20 06/15/20 06/15/20 Range/Units 23:01 23:01 23:01 WBC 13.0 H (3.8-10.6) k/uL Neutrophils # 10.6 H (1.3-7.7) k/uL APTT 31.9 H (22.0-30.0) sec Sodium 135 L (137-145) mmol/L Chloride 96 L (98-107) mmol/L Glucose 162 H (74-99) mg/dL POC Glucose (mg/dL) (75-99) mg/dL Plasma Lactic Acid George (0.7-2.0) mmol/L Urine Appearance (Clear) Urine Protein (Negative) Urine Blood (Negative) Ur Leukocyte Esterase (Negative) Urine RBC (0-5) /hpf Urine WBC (0-5) /hpf Urine WBC Clumps (None) /hpf 06/15/20 06/16/20 06/16/20 Range/Units 23:01 01:30 02:25 WBC (3.8-10.6) k/uL Neutrophils # (1.3-7.7) k/uL APTT (22.0-30.0) sec Sodium (137-145) mmol/L Chloride (98-107) mmol/L Glucose (74-99) mg/dL POC Glucose (mg/dL) 139 H (75-99) mg/dL Plasma Lactic Acid George 2.5 H* (0.7-2.0) mmol/L Urine Appearance Cloudy H (Clear) Urine Protein Trace H (Negative) Urine Blood Large H (Negative) Ur Leukocyte Esterase Large H (Negative) Urine RBC >182 H (0-5) /hpf Urine WBC >182 H (0-5) /hpf Urine WBC Clumps Many H (None) /hpf 06/16/20 06/16/20 Range/Units 06:59 11:22 WBC (3.8-10.6) k/uL Neutrophils # (1.3-7.7) k/uL APTT (22.0-30.0) sec Sodium (137-145) mmol/L Chloride (98-107) mmol/L Glucose (74-99) mg/dL POC Glucose (mg/dL) 211 H 162 H (75-99) mg/dL Plasma Lactic Acid George (0.7-2.0) mmol/L Urine Appearance (Clear) Urine Protein (Negative) Urine Blood (Negative) Ur Leukocyte Esterase (Negative) Urine RBC (0-5) /hpf Urine WBC (0-5) /hpf Urine WBC Clumps (None) /hpf Microbiology - Last 24 Hours (Table) 06/16/20 01:30 Urine Culture - Preliminary Urine,Clean Catch Assessment and Plan Assessment: 1- patient presented to hospital with sepsis in this patient who did have a fever and elevated white count significantly positive UA likely the source of the sepsis with the right-sided hydronephrosis and likely complicated UTI and likely from enteric gram-negative pathogen (1) Complicated UTI (urinary tract infection) Current Visit: No Status: Acute Code(s): N39.0 - URINARY TRACT INFECTION, SITE NOT SPECIFIED SNOMED Code(s): 00810951 (2) Urinary tract infection Current Visit: No Status: Acute Code(s): N39.0 - URINARY TRACT INFECTION, SITE NOT SPECIFIED SNOMED Code(s): 38577978 Plan: 1- Unasyn dose will be adjusted to 3 g every 6 hours 2-change Humphrey catheter if not done in the ER already 3-gentle IV fluids We will follow on clinical condition and cultures to further adjust medication if needed Thank you for this consultation will follow this patient with you Time with Patient: Greater than 30
[2020-06-17 09:32] LABS: African American GFR (CKD) 107.6 (60.0-200.0); Anion Gap 6.1 mmol/L (4.00-12.00); BUN/Creat Ratio 11.43 Ratio (12.00-20.00); Calcium 8.4 mg/dL (8.7-10.3); Carbon Dioxide 28.9 mmol/L (21.6-31.8); Non-African American GFR(CKD) 92.9 (60.0-200.0); Potassium 4.3 mmol/L (3.5-5.5)
[2020-06-17 12:04] LABS: Glucose,Whole Blood 212 mg/dL (75-99)
[2020-06-17 12:27] LABS: Appearance,Urine Cloudy (Clear); Bacteria,Urine Rare /hpf; Bilirubin,Urine Negative (Negative); Blood,Urine Moderate (Negative); Color,Urine Light Yellow; Glucose,Urine (UA) Negative (Negative); Ketones,Urine Negative (Negative); Leukocyte Esterase,Urine Large (Negative); Mucus,Urine Rare /hpf; Nitrite,Urine Negative (Negative); PH, Urine 6.5 (5.0-8.0); Protein,Urine Negative (Negative); RBC,Urine 15 /hpf (0-5); Specific Gravity,Urine 1.009 (1.001-1.035); Squamous Epithelial Cell,Urine 1 /hpf (0-4); Urobilinogen,Urine <2.0 mg/dL (<2.0); WBC,Urine >182 /hpf (0-5)
--- NOTE | 2020-06-17 14:35 | P.PN ---
Subjective Progress Note Date: 06/17/20 64-year-old female with multiple medical problems including COPD, history of previous bowel resection due to sigmoid volvulus, type 2 diabetes mellitus, chronic neurogenic bladder with chronic Humphrey catheter, chronic hydronephrosis, KEVIN on CPAP. Since to the hospital complaint of abdominal pain, decreased output from ostomy. For the last 3 days. Reported having nausea with liquidy emesis. Denies subjective fever and chills. CT abdomen pelvis and constipation, peristomal hernia with omental fat. An known chronic right-sided hydronephrosis and hydroureter. Patient was found to have fever 100.2, elevated white count 13. Has known history of recurrent complicated UTIs with enterococcus. Her chest x-ray did show a possible infiltrate, however feelers low probability of pneumonia, rather source of sepsis is likely due to urinary tract infection. She has been started empirically on antimicrobial therapy with Unasyn given her history of enterococcus. Currently afebrile and hemodynamically stable. Humphrey catheter was replaced and emergency department. Patient is yet to have output from os eliseo and is still complaining of abdominal discomfort. 06/17/20 Patient is moving her bowels and having output from ostomy today. Family visiting at bedside. Her parts or abdominal pain is improved. Humphrey catheter was changed. Receiving antimicrobial therapy with Unasyn, urine cultures are pending. Afebrile, hemodynamically stable. Review Of Systems: Constitutional: No fever, no chills, no night sweats. Lungs: No shortness of breath, cough, no sputum production. No wheezing. Cardiovascular: No chest pain, no lower extremity edema. No palpitations. No paroxysmal nocturnal dyspnea. Abdominal: Abdominal pain. Nausea and vomiting now improved. Ileostomy and c olostomy with decreased output No bloody or tarry stools.. Genitourinary: Chronic Humphrey catheter Musculoskeletal: No myalgias. Objective - Vital Signs Vital signs: Vital Signs Temp 97.6 F 06/17/20 07:00 Pulse 100 06/17/20 08:32 Resp 16 06/17/20 07:00 BP 106/63 06/17/20 07:00 Pulse Ox 99 06/17/20 07:00 Intake & Output 06/16/20 06/17/20 06/17/20 18:59 06:59 18:59 Intake Total 200 Output Total 1310 2500 Balance -1310 -2500 200 Intake: Oral 200 Output: Urine 1310 2500 Other: Voiding Method Indwelling Catheter Indwelling Catheter Indwelling Catheter - Exam HEENT: Head is atraumatic, normocephalic. Pupils equal, round. Sclerae is anicteric. NECK: Supple. No JVD. No lymphadenopathy. No thyromegaly. LUNGS: Clear to auscultation. No wheezes or rhonchi. No intercostal retractions. HEART: Regular rate and rhythm. No murmur. ABDOMEN: Soft. Nondistended Bowel sounds are present. No masses. No colostomy and ileostomy no rebound GENITOURINARY: Chronic indwelling Humphrey catheter EXTREMITIES: No pedal edema. No calf tenderness. NEUROLOGICAL: Patient is awake, alert and oriented x3. Cranial nerves 2 through 12 are grossly intact. - Labs CBC & Chem 7: 06/17/20 05:46 06/17/20 05:46 Labs: Abnormal Lab Results - Last 24 Hours (Table) 06/15/20 06/16/20 06/16/20 Range/Units 12:00 16:38 21:00 RBC (3.80-5.40) m/uL Hgb (11.4-16.0) gm/dL Lymphocytes # (1.0-4.8) k/uL BUN (9.0-27.0) mg/dL BUN/Creatinine Ratio (12.00-20.00) Ratio Glucose (70-110) mg/dL POC Glucose (mg/dL) 177 H 214 H (75-99) mg/dL Hemoglobin A1c 7.4 H (4.0-6.0) % Calcium (8.7-10.3) mg/dL Urine Appearance (Clear) Urine Blood (Negative) Ur Leukocyte Esterase (Negative) Urine RBC (0-5) /hpf Urine WBC (0-5) /hpf Urine WBC Clumps (None) /hpf Urine Bacteria (None) /hpf Urine Mucus (None) /hpf 06/17/20 06/17/20 06/17/20 Range/Units 02:10 05:46 05:46 RBC 3.67 L (3.80-5.40) m/uL Hgb 10.9 L (11.4-16.0) gm/dL Lymphocytes # 0.9 L (1.0-4.8) k/uL BUN 8.0 L (9.0-27.0) mg/dL BUN/Creatinine Ratio 11.43 L (12.00-20.00) Ratio Glucose 176 H (70-110) mg/dL POC Glucose (mg/dL) 195 H (75-99) mg/dL Hemoglobin A1c (4.0-6.0) % Calcium 8.4 L (8.7-10.3) mg/dL Urine Appearance (Clear) Urine Blood (Negative) Ur Leukocyte Esterase (Negative) Urine RBC (0-5) /hpf Urine WBC (0-5) /hpf Urine WBC Clumps (None) /hpf Urine Bacteria (None) /hpf Urine Mucus (None) /hpf 06/17/20 06/17/20 06/17/20 Range/Units 07:22 11:59 12:05 RBC (3.80-5.40) m/uL Hgb (11.4-16.0) gm/dL Lymphocytes # (1.0-4.8) k/uL BUN (9.0-27.0) mg/dL BUN/Creatinine Ratio (12.00-20.00) Ratio Glucose (70-110) mg/dL POC Glucose (mg/dL) 185 H 212 H (75-99) mg/dL Hemoglobin A1c (4.0-6.0) % Calcium (8.7-10.3) mg/dL Urine Appearance Cloudy H (Clear) Urine Blood Moderate H (Negative) Ur Leukocyte Esterase Large H (Negative) Urine RBC 15 H (0-5) /hpf Urine WBC >182 H (0-5) /hpf Urine WBC Clumps Many H (None) /hpf Urine Bacteria Rare H (None) /hpf Urine Mucus Rare H (None) /hpf Microbiology - Last 24 Hours (Table) 06/16/20 01:30 Urine Culture - Final Urine,Clean Catch 06/15/20 23:01 Blood Culture - Preliminary Blood No Growth after 24 hours Assessment and Plan Assessment: Plan: -Abdominal pain was probably due due to constipation: Improved with laxatives. Having output from ostomy. Continue bowel regimen and diet -Sepsis secondary to acute complicated UTI: Patient has history of UTI with Enterococcus faecalis. Continued on empiric antimicrobial therapy with Unasyn, urine cultures are pending. -Chronic Humphrey catheter secondary to chronic neurogenic bladder chronic right- sided hydronephrosis and hydroureter secondary to this, fully catheter is been changed -Right-sided atelectasis: Low clinical probability of pneumonia. 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 Follow-up with urine cultures. Possible discharge in the next 24-48 hours.
[2020-06-17 16:35] LABS: Glucose,Whole Blood 149 mg/dL (75-99)
[2020-06-17 19:17] VITALS: RESP 16
[2020-06-17 20:06] LABS: Glucose,Whole Blood 153 mg/dL (75-99)
--- NOTE | 2020-06-17 20:37 | PN ---
PROGRESS NOTE DATE OF SERVICE: 06/17/2020 REASON FOR FOLLOWUP: Catheter associated urinary tract infection. INTERVAL HISTORY: The patient is currently afebrile. The patient is feeling better. Breathing comfortably. The patient's abdominal pain has improved. Humphrey has been changed. No nausea, no vomiting, and did have output in her ostomy bag. PHYSICAL EXAMINATION: Her blood pressure is 97/58 with a pulse of 70, temperature 98.8. She is 97% on 3 L nasal cannula. General description is a middle-aged female lying in bed in no distress. Respiratory system: Unlabored breathing, clear to auscultation anteriorly. Heart S1, S2. Regular rate and rhythm. ABDOMEN: Soft, no tenderness. LABS: Hemoglobin is 10.8, white count 6.9, BUN of 8, creatinine 0.7. Blood culture has been negative so far. DIAGNOSTIC IMPRESSION AND PLAN: Patient admitted to the hospital with fever and abdominal pain significant positive and likely complicated urinary tract infection . The patient seems to be clinically responding to Unasyn and to continue while waiting for the culture to finalize. Humphrey has been changed. Continue supportive care. at the bedside. Questions were answered. MMODL / IJN: [id number] /
[2020-06-18] MEDS: HEPARIN SODIUM,PORCINE 5,000 UNIT/ML 1 ML VIAL SQ SCH ×2 (01:00→07:12)
[2020-06-18] MEDS: AMPICILLIN-SULBACTAM 3 GM in SODIUM CHLORIDE 0.9% 100 ML IVPB SCH ×2 (01:00→07:12)
[2020-06-18 03:31] LABS: Glucose,Whole Blood 144 mg/dL (75-99)
[2020-06-18] MEDS: SODIUM CHLORIDE 0.9% 1,000 ML IV SCH (05:51)
[2020-06-18 06:45] LABS: Glucose,Whole Blood 146 mg/dL (75-99)
[2020-06-18] MEDS: ATORVASTATIN 20 MG TAB PO SCH (07:11)
[2020-06-18] MEDS: LACTULOSE 20 GM/30 ML CUP PO SCH (07:11)
[2020-06-18] MEDS: PARoxetine 20 MG TAB PO SCH (07:11)
[2020-06-18] MEDS: metFORMIN 500 MG TAB PO SCH (07:11)
[2020-06-18] MEDS: FAMOTIDINE 20 MG TAB PO SCH (07:11)
[2020-06-18] MEDS: IMIPRAMINE 25 MG TAB PO SCH (07:11)
[2020-06-18] MEDS: ASPIRIN 81 MG PO SCH (07:11)
[2020-06-18] MEDS: INSULIN ASPART (NovoLOG) 100 UNIT/ML VIAL SQ SCH ×2 (07:12→12:26)
[2020-06-18] MEDS: INSULIN DETEMIR (LEVEMIR) 100 UNIT/ML SYR SQ SCH (07:12)
[2020-06-18] MEDS: OXYBUTYNIN XL 5 MG TAB.ER.24 PO SCH (07:12)
[2020-06-18 07:21] VITALS: BP 128/72; TEMP 98.9
[2020-06-18 07:24] LABS: HCT 32.7 % (34.0-46.0); HGB 10.3 gm/dL (11.4-16.0); Hypochromasia Marked; MCH 29.5 pg (25.0-35.0); MCHC 31.4 g/dL (31.0-37.0); MCV 94.1 fL (80.0-100.0); Mean Platelet Volume 9.2; Platelet Count 225 k/uL (150-450); RBC 3.48 m/uL (3.80-5.40); RDW 14.1 % (11.5-15.5); WBC 8.6 k/uL (3.8-10.6)
[2020-06-18] MEDS: BUDESONIDE 0.5 MG/2 ML NEBU INHALATION SCH (08:52)
[2020-06-18] MEDS: ALBUTEROL NEBULIZED 2.5 MG/3 ML INHALATION PRN (08:52)
[2020-06-18 09:02] VITALS: PULSE 80
[2020-06-18 11:25] LABS: Glucose,Whole Blood 148 mg/dL (75-99)
[2020-06-18 11:52] LABS: African American GFR (CKD) 91.6 (60.0-200.0); Anion Gap 7.4 mmol/L (4.00-12.00); BUN/Creat Ratio 8.75 Ratio (12.00-20.00); Calcium 8.7 mg/dL (8.7-10.3); Carbon Dioxide 30.6 mmol/L (21.6-31.8); Potassium 4.5 mmol/L (3.5-5.5)
--- NOTE | 2020-06-18 12:12 | P.DS ---
Providers Date of admission: 06/16/20 00:52 Expected date of discharge: 06/18/20 Attending physician: Harley Lee Consults: 06/16/20 13:47 Consult Physician Routine Consulting Provider: Bronson Elizalde Consult Reason/Comments: UTI complicated Do you want consulting provider notified?: Yes Primary care physician: Zita Tamra [facility] Course: 64-year-old female with multiple medical problems including COPD, history of previous bowel resection due to sigmoid volvulus, type 2 diabetes mellitus, chronic neurogenic bladder with chronic Humphrey catheter, chronic hydronephrosis, KEVIN on CPAP. Since to the hospital complaint of abdominal pain, decreased output from ostomy. For the last 3 days. Reported having nausea with liquidy emesis. Denies subjective fever and chills. CT abdomen pelvis and constipation, peristomal hernia with omental fat. An known chronic right-sided hydronephrosis and hydroureter. Patient was found to have fever 100.2, elevated white count 13. Has known history of recurrent complicated UTIs with enterococcus. Her chest x-ray did show a possible infiltrate, however feelers low probability of pneumonia, rather source of sepsis is likely due to urinary tract infection. She has been started empirically on antimicrobial therapy with Unasyn given her history of enterococcus. Currently afebrile and hemodynamically stable. Humphrey catheter was replaced and emergency department. Patient is yet to have output from ostomy and is still complaining of abdominal discomfort. 06/17/20 Patient is moving her bowels and having output from ostomy today. Family visiting at bedside. Her parts or abdominal pain is improved. Humphrey catheter was changed. Receiving antimicrobial therapy with Unasyn, urine cultures are pending. Afebrile, hemodynamically stable. Review Of Systems: Constitutional: No fever, no chills, no night sweats. Lungs: No shortness of breath, cough, no sputum production. No wheezing. Cardiovascular: No chest pain, no lower extremity edema. No palpitations. No paroxysmal nocturnal dyspnea. Abdominal: Abdominal pain. Nausea and vomiting now improved. Ileostomy and colostomy with decreased output No bloody or tarry stools.. Genitourinary: Chronic Humphrey catheter Musculoskeletal: No myalgias. Exam HEENT: Head is atraumatic, normocephalic. Pupils equal, round. Sclerae is anicteric. NECK: Supple. No JVD. No lymphadenopathy. No thyromegaly. LUNGS: Expiratory wheezing to auscultation bilaterally No intercostal retractions. HEART: Regular rate and rhythm. No murmur. ABDOMEN: Soft. Nondistended Bowel sounds are present. No masses. No colostomy and ileostomy no rebound GENITOURINARY: Chronic indwelling Humphrey catheter EXTREMITIES: No pedal edema. No calf tenderness. NEUROLOGICAL: Patient is awake, alert and oriented x3. Cranial nerves 2 through 12 are grossly intact. -Abdominal pain was probably due due to constipation: Improved with laxatives. Having output from ostomy. Continue lactulose upon discharge -Sepsis secondary to acute complicated UTI: Patient has history of UTI with Enterococcus faecalis. Continue antimicrobial course of Augmentin for 7 days upon discharge per ID. -Chronic Humphrey catheter secondary to chronic neurogenic bladder chronic right- sided hydronephrosis and hydroureter secondary to this, fully catheter is been changed -Mild exacerbation COPD: Wheezing today, Continue inhaled corticosteroids and bronchodilators, his nebulizers at home. -Right-sided atelectasis: Low clinical probability of pneumonia. 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 -Aortic stenosis Patient Condition at Discharge: Stable Plan - Discharge Summary New Discharge Prescriptions: New Lactulose [Cephulac] 20 gm PO BID PRN #200 ml PRN Reason: Constipation Amoxic-Pot Clav 875-125Mg [Augmentin 875-125] 1 tab PO Q12HR 7 Days #14 tab Continue Atorvastatin Calcium [Lipitor] 20 mg PO DAILY [place]-3 Fatty Acids/Fish Oil [Fish Oil 1,000 mg Softgel] 1 cap PO DAILY Imipramine [Tofranil] 25 mg PO BID Aspirin 81 mg PO DAILY PARoxetine HCL [Paxil] 20 mg PO DAILY Budesonide [Pulmicort] 0.5 mg INHALATION RT-QID PRN PRN Reason: Shortness Of Breath Oxybutynin Xl [Ditropan XL] 5 mg PO DAILY Albuterol Nebulized [Ventolin Nebulized] 2.5 mg INHALATION RT-QID PRN PRN Reason: Shortness Of Breath INSULIN LISPRO (humaLOG) [humaLOG] See Protocol SQ AC-TID metFORMIN HCL 1,000 mg PO BID Insulin Glargine,Hum.rec.anlog [Lantus Solostar] 45 unit SQ DAILY Discontinued Lactulose 10 gm PO DAILY Discharge Medication List Aspirin 81 mg PO DAILY 11/10/15 [History] Atorvastatin Calcium [Lipitor] 20 mg PO DAILY 11/10/15 [History] Budesonide [Pulmicort] 0.5 mg INHALATION RT-QID PRN 11/10/15 [History] Imipramine [Tofranil] 25 mg PO BID 11/10/15 [History] [place]-3 Fatty Acids/Fish Oil [Fish Oil 1,000 mg Softgel] 1 cap PO DAILY 11/10/15 [History] PARoxetine HCL [Paxil] 20 mg PO DAILY 11/10/15 [History] Albuterol Nebulized [Ventolin Nebulized] 2.5 mg INHALATION RT-QID PRN 11/11/15 [History] Oxybutynin Xl [Ditropan XL] 5 mg PO DAILY 11/11/15 [History] INSULIN LISPRO (humaLOG) [humaLOG] See Protocol SQ AC-TID 09/07/16 [History] metFORMIN HCL 1,000 mg PO BID 10/08/19 [History] Insulin Glargine,Hum.rec.anlog [Lantus Solostar] 45 unit SQ DAILY 06/16/20 [History] Amoxic-Pot Clav 875-125Mg [Augmentin 875-125] 1 tab PO Q12HR 7 Days #14 tab 06/18/20 [Rx] Lactulose [Cephulac] 20 gm PO BID PRN #200 ml 06/18/20 [Rx] Follow up Appointment(s)/Referral(s): Zita Barboza MD [Primary Care Provider] - 3 Days Discharge Disposition: HOME SELF-CARE
--- NOTE | 2020-06-18 16:04 | PN ---
PROGRESS NOTE DATE OF SERVICE: 06/18/2020 REASON FOR FOLLOW UP: Catheter associated urinary tract infection. INTERVAL COURSE: The patient is currently afebrile. The patient is breathing comfortably. The patient denies having any chest pain or shortness of breath or cough. No nausea, vomiting, abdominal pain or diarrhea. PHYSICAL EXAMINATION: Blood pressure 128/72 with a pulse of 94, temperature 98.9. She is 96% on 2 L nasal cannula. General description is a middle-aged female up in the bed in no distress. Respiratory system: Unlabored breathing, clear to auscultation anteriorly. Heart S1, S2. Regular rate and rhythm. Abdomen soft, no tenderness. LABS: Hemoglobin is 10.1, white count of 8.6, creatinine 0.8. DIAGNOSTIC IMPRESSION AND PLAN: Patient admitted to the hospital with fever, elevated white count 19.8. Catheter associated positive UA. A CT of abdomen and pelvis done revealed no abnormality. Overall improvement on Unasyn, to finish therapy with oral Augmentin for about a week and close outpatient followup. Discussed with the admitting physician, working on discharge. MMODL / IJN: [id number] /
== END 2020-06-18 15:05 | disposition home or self-care (01) | DRG 698 ==
LOC: EC 21:46 → 4SSUR 06-16 00:52
PROVIDERS: ADMIT Hospitalist; ATTEND Hospitalist
DX: T83.518A Infection and inflammatory reaction due to other urinary catheter, initial encounter (principal); A41.81 Sepsis due to Enterococcus; N13.6 Pyonephrosis; J98.11 Atelectasis; J96.11 Chronic respiratory failure with hypoxia; Y84.6 Urinary catheterization as the cause of abnormal reaction of the patient, or of later complication, without mention of misadventure at the time of the procedure; F32.9 Major depressive disorder, single episode, unspecified; E78.5 Hyperlipidemia, unspecified; F41.9 Anxiety disorder, unspecified; I10 Essential (primary) hypertension; I25.10 Atherosclerotic heart disease of native coronary artery without angina pectoris; D86.0 Sarcoidosis of lung; G31.9 Degenerative disease of nervous system, unspecified; I35.0 Nonrheumatic aortic (valve) stenosis; G47.33 Obstructive sleep apnea (adult) (pediatric); R53.81 Other malaise; E11.41 Type 2 diabetes mellitus with diabetic mononeuropathy; N31.9 Neuromuscular dysfunction of bladder, unspecified; K59.00 Constipation, unspecified; Z20.828 Contact with and (suspected) exposure to other viral communicable diseases; Z87.440 Personal history of urinary (tract) infections; Z90.49 Acquired absence of other specified parts of digestive tract; Z93.3 Colostomy status; Z86.14 Personal history of Methicillin resistant Staphylococcus aureus infection; Z83.3 Family history of diabetes mellitus; Z82.49 Family history of ischemic heart disease and other diseases of the circulatory system; Z80.0 Family history of malignant neoplasm of digestive organs; Z79.899 Other long term (current) drug therapy; Z79.82 Long term (current) use of aspirin; Z79.51 Long term (current) use of inhaled steroids; Z79.4 Long term (current) use of insulin; Z98.51 Tubal ligation status; Z98.890 Other specified postprocedural states
CPT/HCPCS: 36415; 71046; 74177; 80048; 80053; 81001; 82150; 83036; 83605; 83690; 85025; 85027; 85610; 85730; 87040; 87086; 94640; 96361; 96365; 96375; 99285

== ENCOUNTER 2020-06-26 09:53 | Emergency (ER) | payer MEDICARE ==
[2020-06-26 10:00] VITALS: PULSE 93; RESP 18; TEMP 97.5
--- NOTE | 2020-06-26 10:55 | ED ---
General Adult HPI - General Chief complaint: Abdominal Pain Stated complaint: bowel problems-revisit Time Seen by Provider: 06/26/20 10:04 Source: patient, family, RN notes reviewed, old records reviewed Mode of arrival: wheelchair Limitations: no limitations - History of Present Illness Initial comments: 64-year-old female with abdominal distention and pain. History of constipation. She's had minimal stool output from her ostomy over the past one week with positive nausea. History is limited by the patient. She had contacted her surgeon Dr. Puentes, and office staff instructed the patient presented emergency department. His no reported fever. - Related Data Home Medications Medication Instructions Recorded Confirmed Aspirin 81 mg PO DAILY 11/10/15 06/26/20 Atorvastatin Calcium [Lipitor] 20 mg PO DAILY 11/10/15 06/26/20 Budesonide [Pulmicort] 0.5 mg INHALATION RT-BID 11/10/15 06/26/20 Imipramine [Tofranil] 25 mg PO BID 11/10/15 06/26/20 [place]-3 Fatty Acids/Fish Oil [Fish 1 cap PO DAILY 11/10/15 06/26/20 Oil 1,000 mg Softgel] PARoxetine HCL [Paxil] 20 mg PO DAILY 11/10/15 06/26/20 Albuterol Nebulized [Ventolin 2.5 mg INHALATION RT-QID PRN 11/11/15 06/26/20 Nebulized] Oxybutynin Xl [Ditropan XL] 5 mg PO DAILY 11/11/15 06/26/20 INSULIN LISPRO (humaLOG) [humaLOG] See Protocol SQ AC-TID 09/07/16 06/26/20 metFORMIN HCL 1,000 mg PO BID 10/08/19 06/26/20 Insulin Glargine,Hum.rec.anlog 45 unit SQ DAILY 06/16/20 06/26/20 [Lantus Solostar] Previous Rx's Medication Instructions Recorded Lactulose [Cephulac] 20 gm PO BID PRN #200 ml 06/18/20 Docusate [Colace] 100 mg PO BID #60 capsule 06/26/20 Polyethylene Glycol 3350 [Miralax] 17 gm PO DAILY #527 gm 06/26/20 Allergies Allergy/AdvReac Type Severity Reaction Status Date / Time No Known Allergies Allergy Verified 06/26/20 11:21 Review of Systems ROS Statement: Those systems with pertinent positive or pertinent negative responses have been documented in the HPI. ROS Other: All systems not noted in ROS Statement are negative. 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, IDDM type II, neuropathy R leg, sarcoidosis/lungs, bronchitis, aortic stenosis/murmur, past chronic constipation, colostomy, occasional incontinence of stool, lower GI bleed, chronic urinary incontinence/neurogenic bladder/chronic Humphrey/frequent urinary tract infections/sepsis, anemia, gait dysfunction-pt is lifted to electric w/c, obstructive sleep apnea with Cpap use, chronic hydronephrosis of the kidneys, colostomy History of Any Multi-Drug Resistant Organisms: C-DIFF, MRSA Date of last positivie culture/infection: 11/2015 MDRO Source:: c-diff, mrsa 2011 in blood Past Surgical History: No Surgical Hx Reported, Bowel Resection, Tubal Ligation Additional Past Surgical History / Comment(s): 2015 sigmoid volvulus with bowel resection/colostomy, EGD, colonoscopies, bronchoscopies x3, carpal tunnel release-laterallity unknown, D&C Past Anesthesia/Blood Transfusion Reactions: No Reported Reaction Past Psychological History: Anxiety, Depression Smoking Status: Never smoker Past Alcohol Use History: None Reported Past Drug Use History: None Reported - Past Family History Father Family Medical History: Cancer Additional Family Medical History / Comment(s): from pancreatic cancer Mother Family Medical History: Congestive Heart Failure (CHF), Diabetes Mellitus, Dialysis Additional Family Medical History / Comment(s): from CHF General Exam Limitations: no limitations General appearance: alert, in no apparent distress Head exam: Present: atraumatic, normocephalic Eye exam: Present: normal appearance, PERRL ENT exam: Present: normal exam Neck exam: Present: normal inspection. Absent: tenderness, meningismus Respiratory exam: Present: normal lung sounds bilaterally. Absent: respiratory distress Cardiovascular Exam: Present: regular rate, normal rhythm GI/Abdominal exam: Present: soft, distended. Absent: tenderness, guarding, rebound Extremities exam: Present: normal inspection, normal capillary refill. Absent: pedal edema, calf tenderness Neurological exam: Present: alert Psychiatric exam: Present: normal affect, normal mood Course Vital Signs 06/26/20 09:54 Temperature 97.5 F L Pulse Rate 93 Respiratory 18 Rate Blood Pressure 140/117 O2 Sat by Pulse 100 Oximetry - Reevaluation(s) Reevaluation #1: 06/26/20 10:56 I discussed case with Dr. Puentes. , Stating that the patient is typically constipated. Workup has been initiated. Medical Decision Making - Medical Decision Making 64-year-old female presenting with constipation for one week. She does have very firm stool in her ostomy. X-ray shows a significant amount of stool burden. I discussed case with her surgeon Dr. Puentes. She will be treated for constipation with continued lactulose, Colace, and magnesium citrate. is informed of plan and is agreeable. They will follow up with Dr. Sood as an outpatient and they will return to the emergency department with worsening or changing symptoms. - Lab Data Result diagrams: 06/26/20 11:07 06/26/20 11:07 Lab Results 06/26/20 06/26/20 06/26/20 Range/Units 11:07 11:07 11:07 WBC 9.8 (3.8-10.6) k/uL RBC 4.38 (3.80-5.40) m/uL Hgb 12.4 (11.4-16.0) gm/dL Hct 40.7 (34.0-46.0) % MCV 92.9 (80.0-100.0) fL MCH 28.3 (25.0-35.0) pg MCHC 30.5 L (31.0-37.0) g/dL RDW 14.8 (11.5-15.5) % Plt Count 284 (150-450) k/uL Neutrophils % 71 % Lymphocytes % 18 % Monocytes % 6 % Eosinophils % 5 % Basophils % 1 % Neutrophils # 6.9 (1.3-7.7) k/uL Lymphocytes # 1.7 (1.0-4.8) k/uL Monocytes # 0.6 (0-1.0) k/uL Eosinophils # 0.5 (0-0.7) k/uL Basophils # 0.1 (0-0.2) k/uL Hypochromasia Slight PT 9.6 (9.0-12.0) sec INR 0.9 (<1.2) APTT 30.7 H (22.0-30.0) sec Sodium 137 (137-145) mmol/L Potassium 4.4 (3.5-5.1) mmol/L Chloride 98 (98-107) mmol/L Carbon Dioxide 31 H (22-30) mmol/L Anion Gap 8 mmol/L BUN 14 (7-17) mg/dL Creatinine 0.70 (0.52-1.04) mg/dL Est GFR (CKD-EPI)AfAm >90 (>60 ml/min/1.73 sqM) Est GFR (CKD-EPI)NonAf >90 (>60 ml/min/1.73 sqM) Glucose 151 H (74-99) mg/dL Plasma Lactic Acid George (0.7-2.0) mmol/L Calcium 9.4 (8.4-10.2) mg/dL Total Bilirubin 0.4 (0.2-1.3) mg/dL AST 47 H (14-36) U/L ALT 35 H (4-34) U/L Alkaline Phosphatase 100 (38-126) U/L Total Protein 7.7 (6.3-8.2) g/dL Albumin 4.0 (3.5-5.0) g/dL Lipase 67 (23-300) U/L 06/26/20 Range/Units 11:07 WBC (3.8-10.6) k/uL RBC (3.80-5.40) m/uL Hgb (11.4-16.0) gm/dL Hct (34.0-46.0) % MCV (80.0-100.0) fL MCH (25.0-35.0) pg MCHC (31.0-37.0) g/dL RDW (11.5-15.5) % Plt Count (150-450) k/uL Neutrophils % % Lymphocytes % % Monocytes % % Eosinophils % % Basophils % % Neutrophils # (1.3-7.7) k/uL Lymphocytes # (1.0-4.8) k/uL Monocytes # (0-1.0) k/uL Eosinophils # (0-0.7) k/uL Basophils # (0-0.2) k/uL Hypochromasia PT (9.0-12.0) sec INR (<1.2) APTT (22.0-30.0) sec Sodium (137-145) mmol/L Potassium (3.5-5.1) mmol/L Chloride (98-107) mmol/L Carbon Dioxide (22-30) mmol/L Anion Gap mmol/L BUN (7-17) mg/dL Creatinine (0.52-1.04) mg/dL Est GFR (CKD-EPI)AfAm (>60 ml/min/1.73 sqM) Est GFR (CKD-EPI)NonAf (>60 ml/min/1.73 sqM) Glucose (74-99) mg/dL Plasma Lactic Acid George 1.6 (0.7-2.0) mmol/L Calcium (8.4-10.2) mg/dL Total Bilirubin (0.2-1.3) mg/dL AST (14-36) U/L ALT (4-34) U/L Alkaline Phosphatase (38-126) U/L Total Protein (6.3-8.2) g/dL Albumin (3.5-5.0) g/dL Lipase (23-300) U/L Disposition Clinical Impression: Abdominal pain, Constipation Disposition: HOME SELF-CARE Condition: Fair Instructions (If sedation given, give patient instructions): Abdominal Pain (ED), Constipation (ED) Additional Instructions: Please discontinue Metamucil. Start MiraLAX and Colace. Take half a bottle of magnesium citrate today and half a bottle tomorrow. Prescriptions: Docusate [Colace] 100 mg PO BID #60 capsule Polyethylene Glycol 3350 [Miralax] 17 gm PO DAILY #527 gm Is patient prescribed a controlled substance at d/c from ED?: No Referrals: Zita Barboza MD [Primary Care Provider] - 1-2 days Jeanine Puentes MD [STAFF PHYSICIAN] - 1-2 days Time of Disposition: 11:46
--- NOTE | 2020-06-26 11:13 | XR ---
EXAMINATION TYPE: XR KUB DATE OF EXAM: 06/26/2020 11:00 AM CLINICAL HISTORY: Abdominal pain TECHNIQUE: Supine images of the abdomen and pelvis were obtained COMPARISON: CT abdomen pelvis 06/15/2020.. FINDINGS: The bowel loops are incompletely visualized. There is marked colonic fecal debris redemonst rated. Calcifications within the rectal stump redemonstrated. Lung bases are clear. IMPRESSION: 1. The visualized bowel loops demonstrate marked colonic fecal debris, likely constipation. 2. Redemonstrated calcification within the rectal stump.
[2020-06-26 11:23] LABS: Basophils # (A) 0.1 k/uL (0-0.2); Basophils % (A) 1 %; Eosinophils # (A) 0.5 k/uL (0-0.7); Eosinophils % (A) 5 %; HCT 40.7 % (34.0-46.0); HGB 12.4 gm/dL (11.4-16.0); Hypochromasia Slight; Lymphocytes # (A) 1.7 k/uL (1.0-4.8); Lymphocytes % (A) 18 %; MCH 28.3 pg (25.0-35.0); MCHC 30.5 g/dL (31.0-37.0); MCV 92.9 fL (80.0-100.0); Mean Platelet Volume 8.7; Monocytes # (A) 0.6 k/uL (0-1.0); Monocytes % (A) 6 %; Neutrophils # (A) 6.9 k/uL (1.3-7.7); Neutrophils % (A) 71 %; Platelet Count 284 k/uL (150-450); RBC 4.38 m/uL (3.80-5.40); RDW 14.8 % (11.5-15.5); WBC 9.8 k/uL (3.8-10.6)
[2020-06-26 11:27] LABS: INR 0.9 (<1.2); Partial Thromboplastin Time 30.7 sec (22.0-30.0); Prothrombin Time 9.6 sec (9.0-12.0)
[2020-06-26 11:28] LABS: ALT 35 U/L (4-34); AST 47 U/L (14-36); African American GFR (CKD) >90 (>60 ml/min/1.73 sqM); Alkaline Phosphatase 100 U/L (38-126); Anion Gap 8 mmol/L; Blood Urea Nitrogen 14 mg/dL (7-17); Calcium 9.4 mg/dL (8.4-10.2); Carbon Dioxide 31 mmol/L (22-30); Chloride 98 mmol/L (98-107); Glucose 151 mg/dL (74-99); Lipase 67 U/L (23-300); Non-African American GFR(CKD) >90 (>60 ml/min/1.73 sqM); Potassium 4.4 mmol/L (3.5-5.1); Sodium 137 mmol/L (137-145); Total Bilirubin 0.4 mg/dL (0.2-1.3); Total Protein 7.7 g/dL (6.3-8.2)
[2020-06-26] MEDS ORDERED: MAGNESIUM CITRATE 296 ML BOTTLE PO ONE (11:44)
[2020-06-26 12:03] VITALS: BP 111/63
== END 2020-06-26 12:04 | disposition home or self-care (01) ==
LOC: EC 09:53
DX: K59.00 Constipation, unspecified (principal); J45.909 Unspecified asthma, uncomplicated; K21.9 Gastro-esophageal reflux disease without esophagitis; E78.5 Hyperlipidemia, unspecified; E11.40 Type 2 diabetes mellitus with diabetic neuropathy, unspecified; G47.33 Obstructive sleep apnea (adult) (pediatric); I10 Essential (primary) hypertension; I25.10 Atherosclerotic heart disease of native coronary artery without angina pectoris; E66.01 Morbid (severe) obesity due to excess calories; Z68.41 Body mass index [BMI] 40.0-44.9, adult; Z93.3 Colostomy status; Z79.82 Long term (current) use of aspirin; Z79.51 Long term (current) use of inhaled steroids; Z79.4 Long term (current) use of insulin; Z79.899 Other long term (current) drug therapy; Z99.89 Dependence on other enabling machines and devices
CPT/HCPCS: 36415; 74018; 80053; 83605; 83690; 85025; 85610; 85730; 99284

== ENCOUNTER 2020-07-20 10:04 | Inpatient (IN) | payer MEDICARE ==
[2020-07-20] MEDS ORDERED: MORPHINE SULFATE 2 MG/ML SYRINGE IVP STA (11:23)
[2020-07-20] MEDS ORDERED: ONDANSETRON 4 MG/2 ML VIAL IVP STA (11:23)
--- NOTE | 2020-07-20 11:23 | ED ---
Female Urogenital HPI - General Chief complaint: Urogenital Stated complaint: Vomiting Time Seen by Provider: 07/20/20 10:25 Source: patient, family Mode of arrival: wheelchair Limitations: physical limitation - History of Present Illness Initial comments: 64-year-old female presenting today for chief complaint of possible urinary tract infection. Patient states she has a chronic indwelling Humphrey catheter that she has had for the past 10 years she states every so often she suffers from urinary tract infections. Patient states yesterday she began vomiting and states this persisted into the morning she states she has diffuse abdominal pain. Patient denies any back or flank pain or history of kidney stone she denies noting hematuria or Humphrey bag. Patient denies any chest pain or new shortness of breath she states she is on chronic home O2 secondary to severe COPD. Patient denies noting fevers. Pt denies diarrhea. Patient has no additional complaints - Related Data Home Medications Medication Instructions Recorded Confirmed Aspirin 81 mg PO DAILY 11/10/15 07/20/20 Atorvastatin Calcium [Lipitor] 20 mg PO DAILY 11/10/15 07/20/20 Budesonide [Pulmicort] 0.5 mg INHALATION RT-BID 11/10/15 07/20/20 Imipramine [Tofranil] 25 mg PO BID 11/10/15 07/20/20 [place]-3 Fatty Acids/Fish Oil [Fish 1 cap PO DAILY 11/10/15 07/20/20 Oil 1,000 mg Softgel] PARoxetine HCL [Paxil] 20 mg PO DAILY 11/10/15 07/20/20 Albuterol Nebulized [Ventolin 2.5 mg INHALATION RT-QID PRN 11/11/15 07/20/20 Nebulized] Oxybutynin Xl [Ditropan XL] 5 mg PO DAILY 11/11/15 07/20/20 metFORMIN HCL 1,000 mg PO BID 10/08/19 07/20/20 Insulin Glargine,Hum.rec.anlog 45 unit SQ HS 06/16/20 07/20/20 [Lantus Solostar] Cholecalciferol [Vitamin D3 (25 1,000 unit PO DAILY 07/20/20 07/20/20 Mcg = 1000 Iu)] INSULIN ASPART (NovoLOG) [NovoLOG See Protocol SQ ACHS PRN 07/20/20 07/20/20 (formulary)] L.acidoph,Paracasei, B.lactis 1 cap PO DAILY 07/20/20 07/20/20 [Probiotic] Lactulose [Cephulac] 10 gm PO BID PRN 07/20/20 07/20/20 Multivitamins, Thera [Multivitamin 1 tab PO DAILY 07/20/20 07/20/20 (formulary)] Psyllium Husk (with Sugar) 1 tbsp PO DAILY 07/20/20 07/20/20 [Metamucil Powder] Allergies Allergy/AdvReac Type Severity Reaction Status Date / Time No Known Allergies Allergy Verified 07/20/20 10:54 Review of Systems ROS Statement: Those systems with pertinent positive or pertinent negative responses have been documented in the HPI. ROS Other: All systems not noted in ROS Statement are negative. 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, IDDM type II, neuropathy R leg, sarcoidosis/lungs, bronchitis, aortic stenosis/murmur, past chronic constipation, colostomy, occasional incontinence of stool, lower GI bleed, chronic urinary incontinence/neurogenic bladder/chronic Humphrey/frequent urinary tract infections/sepsis, anemia, gait dysfunction-pt is lifted to electric w/c, obstructive sleep apnea with Cpap use, chronic hydronephrosis of the kidneys, colostomy History of Any Multi-Drug Resistant Organisms: C-DIFF, MRSA Date of last positivie culture/infection: 11/2015 MDRO Source:: c-diff, mrsa 2010 in blood Past Surgical History: No Surgical Hx Reported, Bowel Resection, Tubal Ligation Additional Past Surgical History / Comment(s): 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, EGD, colonoscopies, bronchoscopies x3, carpal tunnel release-laterallity unknown, D&C Past Anesthesia/Blood Transfusion Reactions: No Reported Reaction Past Psychological History: Anxiety, Depression Smoking Status: Never smoker Past Alcohol Use History: None Reported Past Drug Use History: None Reported - Past Family History Father Family Medical History: Cancer Additional Family Medical History / Comment(s): from pancreatic cancer Mother Family Medical History: Congestive Heart Failure (CHF), Diabetes Mellitus, Dialysis Additional Family Medical History / Comment(s): from CHF General Exam - General Exam Comments Initial Comments: General: The patient is awake and alert, in no distress Eye: Pupils are equal, round and reactive to light, extra-ocular movements are intact. No nystagmus. There is normal conjunctiva bilaterally. No signs of icterus. Ears, nose, mouth and throat: There are moist mucous membranes and no oral lesions. Neck: The neck is supple, there is no tenderness or JVD. Cardiovascular: There is a regular rate and rhythm. No murmur, rub or gallop is appreciated. Respiratory: Lungs are clear to auscultation, respirations are non-labored, breath sounds are equal. No wheezes, stridor, rales, or rhonchi. Gastrointestinal: Soft, non-distended, diffuse mild tenderness, no localized tenderness, abdomen without masses or organomegaly noted. There is no rebound or guarding present. Musculoskeletal: Normal ROM, no tenderness. Strength 5/5. Sensation intact. Radial pulses equal bilaterally 2+. Neurological: A&O x 3. CN II-XII intact grossly, There are no obvious motor or sensory deficits. Coordination appears grossly intact. Speech is normal. Skin: Skin is warm and dry and no rashes or lesions are noted. Psychiatric: Cooperative, appropriate mood & affect, normal judgment. Limitations: physical limitation Course Vital Signs 07/20/20 10:16 Temperature 98.3 F Pulse Rate 89 Respiratory 18 Rate Blood Pressure 163/75 O2 Sat by Pulse 100 Oximetry Medical Decision Making - Medical Decision Making Presented with nausea diffuse abdominal pain, denies chest pain or SOB. abdominal pain CT negative. Urine not overtly convincing for significant infection. patient is hyponatremia which I feels more likely to be the causation of patient's nausea. Patient pain controlled with morphine. Rocephin given due to history of recurrent UTIwith with a esterase and urine. Urine culture pending. Magnesium replaced orally. and patient admitted to after discussing case wtih Dr. Sarkar - Lab Data Result diagrams: 07/20/20 10:36 07/20/20 10:36 Lab Results 11/12/20 11/12/20 11/12/20 Range/Units 10:36 10:36 10:36 WBC 9.7 (3.8-10.6) k/uL RBC 4.05 (3.80-5.40) m/uL Hgb 11.4 (11.4-16.0) gm/dL Hct 35.2 (34.0-46.0) % MCV 86.9 D (80.0-100.0) fL MCH 28.2 (25.0-35.0) pg MCHC 32.4 (31.0-37.0) g/dL RDW 14.2 (11.5-15.5) % Plt Count 235 (150-450) k/uL MPV 8.5 Neutrophils % 81 % Lymphocytes % 10 % Monocytes % 4 % Eosinophils % 4 % Basophils % 1 % Neutrophils # 7.8 H (1.3-7.7) k/uL Lymphocytes # 1.0 (1.0-4.8) k/uL Monocytes # 0.4 (0-1.0) k/uL Eosinophils # 0.4 (0-0.7) k/uL Basophils # 0.1 (0-0.2) k/uL Sodium 123 L (137-145) mmol/L Potassium 4.4 (3.5-5.1) mmol/L Chloride 88 L (98-107) mmol/L Carbon Dioxide 31 H (22-30) mmol/L Anion Gap 4 mmol/L BUN 10 (7-17) mg/dL Creatinine 0.53 (0.52-1.04) mg/dL Est GFR (CKD-EPI)AfAm >90 (>60 ml/min/1.73 sqM) Est GFR (CKD-EPI)NonAf >90 (>60 ml/min/1.73 sqM) Glucose 140 H (74-99) mg/dL Plasma Lactic Acid George (0.7-2.0) mmol/L Calcium 8.5 (8.4-10.2) mg/dL Magnesium (1.6-2.3) mg/dL Total Bilirubin 0.5 (0.2-1.3) mg/dL AST 34 (14-36) U/L ALT 23 (4-34) U/L Alkaline Phosphatase 85 (38-126) U/L Total Protein 6.9 (6.3-8.2) g/dL Albumin 3.6 (3.5-5.0) g/dL Urine Color Light Yellow Urine Appearance Cloudy H (Clear) Urine pH 8.5 H (5.0-8.0) Ur Specific [place] 1.011 (1.001-1.035) Urine Protein Trace H (Negative) Urine Glucose (UA) Negative (Negative) Urine Ketones Negative (Negative) Urine Blood Negative (Negative) Urine Nitrite Negative (Negative) Urine Bilirubin Negative (Negative) Urine Urobilinogen <2.0 (<2.0) mg/dL Ur Leukocyte Esterase Small H (Negative) Urine RBC 6 H (0-5) /hpf Urine WBC 6 H (0-5) /hpf Amorphous Sediment Rare H (None) /hpf Urine Bacteria Rare H (None) /hpf 07/20/20 07/20/20 Range/Units 10:36 10:36 WBC (3.8-10.6) k/uL RBC (3.80-5.40) m/uL Hgb (11.4-16.0) gm/dL Hct (34.0-46.0) % MCV (80.0-100.0) fL MCH (25.0-35.0) pg MCHC (31.0-37.0) g/dL RDW (11.5-15.5) % Plt Count (150-450) k/uL MPV Neutrophils % % Lymphocytes % % Monocytes % % Eosinophils % % Basophils % % Neutrophils # (1.3-7.7) k/uL Lymphocytes # (1.0-4.8) k/uL Monocytes # (0-1.0) k/uL Eosinophils # (0-0.7) k/uL Basophils # (0-0.2) k/uL Sodium (137-145) mmol/L Potassium (3.5-5.1) mmol/L Chloride (98-107) mmol/L Carbon Dioxide (22-30) mmol/L Anion Gap mmol/L BUN (7-17) mg/dL Creatinine (0.52-1.04) mg/dL Est GFR (CKD-EPI)AfAm (>60 ml/min/1.73 sqM) Est GFR (CKD-EPI)NonAf (>60 ml/min/1.73 sqM) Glucose (74-99) mg/dL Plasma Lactic Acid George 0.8 (0.7-2.0) mmol/L Calcium (8.4-10.2) mg/dL Magnesium 1.3 L (1.6-2.3) mg/dL Total Bilirubin (0.2-1.3) mg/dL AST (14-36) U/L ALT (4-34) U/L Alkaline Phosphatase (38-126) U/L Total Protein (6.3-8.2) g/dL Albumin (3.5-5.0) g/dL Urine Color Urine Appearance (Clear) Urine pH (5.0-8.0) Ur Specific [place] (1.001-1.035) Urine Protein (Negative) Urine Glucose (UA) (Negative) Urine Ketones (Negative) Urine Blood (Negative) Urine Nitrite (Negative) Urine Bilirubin (Negative) Urine Urobilinogen (<2.0) mg/dL Ur Leukocyte Esterase (Negative) Urine RBC (0-5) /hpf Urine WBC (0-5) /hpf Amorphous Sediment (None) /hpf Urine Bacteria (None) /hpf Disposition Clinical Impression: Hyponatremia, Hypomagnesemia, Abdominal pain, Vomiting Disposition: ADMITTED IP TO THIS [facility] Condition: Stable Is patient prescribed a controlled substance at d/c from ED?: No Referrals: Zita Barboza MD [Primary Care Provider] - 1-2 days Time of Disposition: 13:13 Decision to Admit Reason: Admit from EC Decision Date: 07/20/20 Decision Time: 13:13
[2020-07-20 11:35] LABS: ALT 23 U/L (4-34); AST 34 U/L (14-36); African American GFR (CKD) >90 (>60 ml/min/1.73 sqM); Albumin 3.6 g/dL (3.5-5.0); Alkaline Phosphatase 85 U/L (38-126); Anion Gap 4 mmol/L; Blood Urea Nitrogen 10 mg/dL (7-17); Calcium 8.5 mg/dL (8.4-10.2); Carbon Dioxide 31 mmol/L (22-30); Chloride 88 mmol/L (98-107); Glucose 140 mg/dL (74-99); Non-African American GFR(CKD) >90 (>60 ml/min/1.73 sqM); Potassium 4.4 mmol/L (3.5-5.1); Sodium 123 mmol/L (137-145); Total Bilirubin 0.5 mg/dL (0.2-1.3); Total Protein 6.9 g/dL (6.3-8.2)
[2020-07-20 11:38] LABS: Basophils # (A) 0.1 k/uL (0-0.2); Basophils % (A) 1 %; Eosinophils # (A) 0.4 k/uL (0-0.7); Eosinophils % (A) 4 %; HCT 35.2 % (34.0-46.0); HGB 11.4 gm/dL (11.4-16.0); Lymphocytes % (A) 10 %; MCH 28.2 pg (25.0-35.0); MCHC 32.4 g/dL (31.0-37.0); Mean Platelet Volume 8.5; Monocytes # (A) 0.4 k/uL (0-1.0); Monocytes % (A) 4 %; Neutrophils # (A) 7.8 k/uL (1.3-7.7); Neutrophils % (A) 81 %; Platelet Count 235 k/uL (150-450); RBC 4.05 m/uL (3.80-5.40); RDW 14.2 % (11.5-15.5); WBC 9.7 k/uL (3.8-10.6)
[2020-07-20 11:47] LABS: Amorphous Sediment,Urine Rare /hpf; Appearance,Urine Cloudy (Clear); Bacteria,Urine Rare /hpf; Bilirubin,Urine Negative (Negative); Blood,Urine Negative (Negative); Color,Urine Light Yellow; Glucose,Urine (UA) Negative (Negative); Ketones,Urine Negative (Negative); Leukocyte Esterase,Urine Small (Negative); Nitrite,Urine Negative (Negative); PH, Urine 8.5 (5.0-8.0); Protein,Urine Trace (Negative); RBC,Urine 6 /hpf (0-5); Specific Gravity,Urine 1.011 (1.001-1.035); Urobilinogen,Urine <2.0 mg/dL (<2.0); WBC,Urine 6 /hpf (0-5)
[2020-07-20 11:49] LABS: MCV 86.9 fL (80.0-100.0)
[2020-07-20] MEDS: SODIUM CHLORIDE 0.9% 1,000 ML IV SCH ×2 (12:09→23:53)
[2020-07-20 12:25] LABS: Magnesium 1.3 mg/dL (1.6-2.3)
[2020-07-20] MEDS ORDERED: METOCLOPRAMIDE 5 MG/ML 2 ML VIAL IVP STA (12:43)
--- NOTE | 2020-07-20 13:04 | CT ---
EXAMINATION TYPE: CT abdomen pelvis w con DATE OF EXAM: 07/20/2020 HISTORY: Abdominal pain with vomiting. Unable to obtain delay due to patient vomiting. CT DLP: 1457mGycm Automated Exposure Control for Dose Reduction was Utilized. CONTRAST: CT scan of the abdomen and pelvis is performed without oral but with IV Contrast, patient injected wi th 100 mL of Isovue 300. COMPARISON: CT abdomen and pelvis June 15, 2020 FINDINGS: LUNG BASES: Tiny bilateral pleural effusions with associated compressive atelectasis. LIVER/GB: Liver remains low dense relative to spleen consistent with diffuse fatty infiltration. PANCREAS: No significant abnormality is seen. SPLEEN: No significant abnormality is seen. ADRENALS: Left adrenal masses are unchanged from 2011 study presumed benign. Smaller anterior limb ri ght adrenal mass axial image 24 also stable presumed benign. KIDNEYS: Delayed imaging either not performed or is not sent to PACS. No hydronephrosis or concerning renal masses. Simple 1.0 cm thin-walled cyst medially right kidney noted axial image 35. The 2 mm le ft renal calculus on prior CT is not clearly seen on current study. Humphrey catheter in decompressed bl adder. BOWEL: High contrast contrast in the remnant sigmoid rectal colon is redemonstrated. Demonstration of left lower quadrant colostomy. No small or large bowel dilatation. Moderate prominence of colonic fe eleanor material is redemonstrated UTERUS/ADNEXA: Anteverted uterus with calcified fundal fibroid. LYMPH NODES: No greater than 1cm abdominal or pelvic lymph nodes are appreciated. OSSEOUS STRUCTURES: No significant abnormality is seen. OTHER: Mild diffuse subcutaneous edema. Finding more prominent from prior. IMPRESSION: No bowel obstruction. No significant new or acute finding is seen to account for patient' s clinical symptoms. Moderate colonic fecal stasis redemonstrated.
[2020-07-20] MEDS ORDERED: MAGNESIUM OXIDE 400 MG TAB PO STA (13:09)
[2020-07-20] MEDS ORDERED: NALOXONE 0.4 MG/ML 1 ML VIAL IV PRN (13:10)
--- NOTE | 2020-07-20 13:44 | P.HPIM ---
History of Present Illness This is a pleasant 64 years old female with past medical history of hypertension, hyperlipidemia, sleep apnea CPAP/BiPAP, asthma, coronary artery disease, diabetes mellitus, GI bleed, chronic hypoxic respiratory failure on 3 L oxygen via NC, morbid obesity, sarcoidosis, neurogenic bladder status post indwelling Humphrey catheter and gait dysfunction, chronic hydronephrosis of the kidneys. Patient presents to the hospital today because she was not feeling good and because she has abdominal pain, periumbilical of 1 days' duration which started yesterday, about 810 and currently 7, felt nonspecific, nonradiating, associated with vomiting 3 times yesterday and 2 times a day. Also patient states she has been drinking water and large quantity to help her swallow pills. She denies fever, no chest pain or dyspnea. Patient denies smoking, alcohol or illicit tracts Vitals are stable. CBC is unremarkable, BMP showing low sodium of 123, serum osmolality is low at 258, rest of BMP is unremarkable, liver enzymes are not elevated, urine osmolality is 439, urinalysis looks cloudy CT of the abdomen and pelvis with contrast: Left adrenal masses are unchanged from 2011 is looking benign. Left lower quadrant colostomy, no bowel obstruction. In the emergency room shows a 21 dose of Rocephin, magnesium oxide 1, Reglan 1, morphine 1 and started on normal saline at 120 mL per hour Review of Systems CONSTITUTIONAL: No fever, no malaise, no fatigue. HEENT: No recent visual problems or hearing problems. Denied any sore throat. CARDIOVASCULAR: No orthopnea, PND, no palpitations, no syncope. PULMONARY: No shortness of breath, no cough, no hemoptysis. GASTROINTESTINAL: No diarrhea, no nausea, no vomiting, no abdominal pain. Normoactive bowel sounds. NEUROLOGICAL: No headaches, no weakness, no numbness. HEMATOLOGICAL: Denies any bleeding or petechiae. GENITOURINARY: Denies any burning micturition, frequency, or urgency. MUSCULOSKELETAL/RHEUMATOLOGICAL: Denies any joint pain, swelling, or any muscle pain. ENDOCRINE: Denies any polyuria or polydipsia. 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, IDDM type II, neuropathy R leg, sarcoidosis/lungs, bronchitis, aortic stenosis/murmur, past chronic constipation, colostomy, occasional incontinence of stool, lower GI bleed, chronic urinary incontinence/neurogenic bladder/chronic Humphrey/frequent urinary tract infections/sepsis, anemia, gait dysfunction-pt is lifted to electric w/c, obstructive sleep apnea with Cpap use, chronic hydronephrosis of the kidneys, colostomy History of Any Multi-Drug Resistant Organisms: C-DIFF, MRSA Date of last positivie culture/infection: 11/2015 MDRO Source:: c-diff, mrsa 2011 in blood Past Surgical History: No Surgical Hx Reported, Bowel Resection, Tubal Ligation Additional Past Surgical History / Comment(s): 2015 sigmoid volvulus with bowel resection/colostomy, EGD, colonoscopies, bronchoscopies x3, carpal tunnel release-laterallity unknown, D&C Past Anesthesia/Blood Transfusion Reactions: No Reported Reaction Past Psychological History: Anxiety, Depression Smoking Status: Never smoker Past Alcohol Use History: None Reported Past Drug Use History: None Reported - Past Family History Father Family Medical History: Cancer Additional Family Medical History / Comment(s): from pancreatic cancer Mother Family Medical History: Congestive Heart Failure (CHF), Diabetes Mellitus, Dialysis Additional Family Medical History / Comment(s): from CHF Medications and Allergies Home Medications Medication Instructions Recorded Confirmed Type Aspirin 81 mg PO DAILY 11/10/15 07/20/20 History Atorvastatin Calcium [Lipitor] 20 mg PO DAILY 11/10/15 07/20/20 History Budesonide [Pulmicort] 0.5 mg INHALATION RT-BID 11/10/15 07/20/20 History Imipramine [Tofranil] 25 mg PO BID 11/10/15 07/20/20 History [place]-3 Fatty Acids/Fish Oil [Fish 1 cap PO DAILY 11/10/15 07/20/20 History Oil 1,000 mg Softgel] PARoxetine HCL [Paxil] 20 mg PO DAILY 11/10/15 07/20/20 History Albuterol Nebulized [Ventolin 2.5 mg INHALATION RT-QID PRN 11/11/15 07/20/20 History Nebulized] Oxybutynin Xl [Ditropan XL] 5 mg PO DAILY 11/11/15 07/20/20 History metFORMIN HCL 1,000 mg PO BID 10/08/19 07/20/20 History Insulin Glargine,Hum.rec.anlog 45 unit SQ HS 06/16/20 07/20/20 History [Lantus Solostar] Cholecalciferol [Vitamin D3 (25 1,000 unit PO DAILY 07/20/20 07/20/20 History Mcg = 1000 Iu)] INSULIN ASPART (NovoLOG) [NovoLOG See Protocol SQ ACHS PRN 07/20/20 07/20/20 History (formulary)] L.acidoph,Paracasei, B.lactis 1 cap PO DAILY 07/20/20 07/20/20 History [Probiotic] Lactulose [Cephulac] 10 gm PO BID PRN 07/20/20 07/20/20 History Multivitamins, Thera [Multivitamin 1 tab PO DAILY 07/20/20 07/20/20 History (formulary)] Psyllium Husk (with Sugar) 1 tbsp PO DAILY 07/20/20 07/20/20 History [Metamucil Powder] Allergies Allergy/AdvReac Type Severity Reaction Status Date / Time No Known Allergies Allergy Verified 07/20/20 10:54 Physical Exam Vitals: Vital Signs Temp Pulse Resp BP Pulse Ox 07/20/20 10:16 98.3 F 89 18 163/75 100 Intake and Output 07/19/20 07/20/20 07/20/20 22:59 06:59 14:59 Other: Voiding Method Indwelling Catheter Weight 90.718 kg -GENERAL: The patient is alert and oriented x3, not in any acute distress. Obese HEENT: Pupils are round and equally reacting to light. EOMI. No scleral icterus. No conjunctival pallor. Normocephalic, atraumatic. No pharyngeal erythema. No thyromegaly. CARDIOVASCULAR: S1 and S2 present. No murmurs, rubs, or gallops. PULMONARY: Chest is clear to auscultation, no wheezing or crackles. -ABDOMEN: Soft, periumbilical tenderness, mild no rebound tenderness, nondistended, normoactive bowel sounds. No palpable organomegaly. Colostomy back is in place. Patient has indwelling Humphrey catheter MUSCULOSKELETAL: No joint swelling or deformity. EXTREMITIES: No cyanosis, clubbing, or pedal edema. NEUROLOGICAL: Gross neurological examination did not reveal any focal deficits. SKIN: No rashes. No petechiae Results CBC & Chem 7: 07/20/20 10:36 07/20/20 10:36 Labs: Abnormal Lab Results - Last 24 Hours (Table) 07/20/20 07/20/20 07/20/20 Range/Units 10:36 10:36 10:36 Neutrophils # 7.8 H (1.3-7.7) k/uL Sodium 123 L (137-145) mmol/L Chloride 88 L (98-107) mmol/L Carbon Dioxide 31 H (22-30) mmol/L Glucose 140 H (74-99) mg/dL Osmolality (280-301) mosm/kg Magnesium (1.6-2.3) mg/dL Urine Appearance Cloudy H (Clear) Urine pH 8.5 H (5.0-8.0) Urine Protein Trace H (Negative) Ur Leukocyte Esterase Small H (Negative) Urine RBC 6 H (0-5) /hpf Urine WBC 6 H (0-5) /hpf Amorphous Sediment Rare H (None) /hpf Urine Bacteria Rare H (None) /hpf 07/20/20 Range/Units 10:36 Neutrophils # (1.3-7.7) k/uL Sodium (137-145) mmol/L Chloride (98-107) mmol/L Carbon Dioxide (22-30) mmol/L Glucose (74-99) mg/dL Osmolality 258 L (280-301) mosm/kg Magnesium 1.3 L (1.6-2.3) mg/dL Urine Appearance (Clear) Urine pH (5.0-8.0) Urine Protein (Negative) Ur Leukocyte Esterase (Negative) Urine RBC (0-5) /hpf Urine WBC (0-5) /hpf Amorphous Sediment (None) /hpf Urine Bacteria (None) /hpf Assessment and Plan Assessment: Hypovolemic hyponatremia Acute gastroenteritis Chronic urine incontinence and neurogenic bladder status post indwelling Humphrey catheter Chronic hypoxic respiratory failure secondary to morbid obesity and restrictive lung disease on 3 L oxygen via nasal cannula Obstructive sleep apnea on CPAP 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 We will decrease the rate of IV fluids to 75 mL/h. Rule out viral infection with covid Labs and medication were reviewed.. Continue same treatment. Continue with symptomatic treatment. Resume home medication. Monitor lytes and vitals. DVT and GI prophylaxis. Further recommendations depends on the clinical course of the patient DVT prophylaxis: Subcutaneous heparin GI Prophylaxis: Pepcid Prognosis is guarded
[2020-07-20 18:23] LABS: African American GFR (CKD) >90 (>60 ml/min/1.73 sqM); Anion Gap 5 mmol/L; Blood Urea Nitrogen 8 mg/dL (7-17); Calcium 8.4 mg/dL (8.4-10.2); Carbon Dioxide 30 mmol/L (22-30); Chloride 89 mmol/L (98-107); Glucose 163 mg/dL (74-99); Non-African American GFR(CKD) >90 (>60 ml/min/1.73 sqM); Potassium 4.7 mmol/L (3.5-5.1); Sodium 124 mmol/L (137-145)
[2020-07-20] MEDS ORDERED: LACTULOSE 20 GM/30 ML CUP PO PRN (22:00)
[2020-07-20 23:42] LABS: African American GFR (CKD) >90 (>60 ml/min/1.73 sqM); Anion Gap 4 mmol/L; Blood Urea Nitrogen 8 mg/dL (7-17); Calcium 8.3 mg/dL (8.4-10.2); Carbon Dioxide 28 mmol/L (22-30); Chloride 90 mmol/L (98-107); Glucose 196 mg/dL (74-99); Non-African American GFR(CKD) >90 (>60 ml/min/1.73 sqM); Potassium 4.6 mmol/L (3.5-5.1); Sodium 122 mmol/L (137-145)
[2020-07-21] MEDS: ALBUTEROL NEBULIZED 2.5 MG/3 ML INHALATION PRN ×3 (07:01→16:09)
[2020-07-21 08:00] LABS: Glucose,Whole Blood 157 mg/dL (75-99)
[2020-07-21 08:18] LABS: African American GFR (CKD) >90 (>60 ml/min/1.73 sqM); Anion Gap 5 mmol/L; Blood Urea Nitrogen 8 mg/dL (7-17); Calcium 8.4 mg/dL (8.4-10.2); Carbon Dioxide 29 mmol/L (22-30); Chloride 95 mmol/L (98-107); Glucose 175 mg/dL (74-99); Magnesium 1.6 mg/dL (1.6-2.3); Non-African American GFR(CKD) >90 (>60 ml/min/1.73 sqM); Potassium 4.4 mmol/L (3.5-5.1); Sodium 129 mmol/L (137-145)
[2020-07-21] MEDS ORDERED: IMIPRAMINE 25 MG TAB PO SCH (09:00)
[2020-07-21] MEDS: metFORMIN 500 MG TAB PO SCH ×2 (09:01→20:56)
[2020-07-21] MEDS: ATORVASTATIN 20 MG TAB PO SCH (09:01)
[2020-07-21] MEDS: ASPIRIN 81 MG PO SCH (09:01)
[2020-07-21] MEDS: MAGNESIUM OXIDE 400 MG TAB PO SCH ×2 (10:50→20:56)
[2020-07-21 11:44] LABS: Glucose,Whole Blood 181 mg/dL (75-99)
[2020-07-21 12:18] LABS: Basophils % (A) 1 %; Eosinophils # (A) 0.3 k/uL (0-0.7); Eosinophils % (A) 4 %; HCT 36.8 % (34.0-46.0); Lymphocytes # (A) 0.9 k/uL (1.0-4.8); Lymphocytes % (A) 12 %; MCH 28.8 pg (25.0-35.0); MCHC 32.5 g/dL (31.0-37.0); MCV 88.6 fL (80.0-100.0); Mean Platelet Volume 8.2; Monocytes # (A) 0.3 k/uL (0-1.0); Monocytes % (A) 4 %; Neutrophils # (A) 6.2 k/uL (1.3-7.7); Neutrophils % (A) 80 %; Platelet Count 237 k/uL (150-450); RBC 4.15 m/uL (3.80-5.40); WBC 7.8 k/uL (3.8-10.6)
--- NOTE | 2020-07-21 13:44 | P.CN ---
Psychiatric Consult - . Consult date: 07/21/20 Consult:: 07/21/20 13:33IDENTIFYING DATA: This patient is a , retired, 64-year-old female with a significant history of hypertension, hyperlipidemia, sleep apnea, asthma, CAD, every smell test, chronic hypoxic respiratory failure on 3 L of oxygen, sarcoidosis, and neurogenic bladder presented to the hospital with abdominal pain and nausea and vomiting. HISTORY OF PRESENT ILLNESS: The patient presented to the hospital 07/20/2020 with complaints of abdominal pain and emesis. Psychiatry has been consulted for adjusting of her psychotropic medications as imipramine and Paxil have been held due to the patient's hyponatremia. Currently the patient is not endorsing any significant symptoms of depression. She is not reporting any suicidal or homicidal ideation, intention, and/or plan. She reports no prior attempts at suicide. She is denying any hopelessness, helplessness, anhedonia, or difficulty sleeping. In regards to anxiety, the patient is anxious that she has had no answers as to why she has difficulty walking. She is otherwise not reporting any panic attacks or other issues. She does admit to a history of depression but denies any other mood disorder such as bipolar disorder. She reports currently her depression has been well managed. As Paxil and imipramine have been held, the patient is not reporting any discontinuation syndrome at this time. She reports no headaches, worsening depression, elevated anxiety, or GI symptoms. In regards to psychotic symptoms, the patient does not endorse any history of auditory or visualizations. She denies any history of paranoia or other delusions. In regards to substance use, the patient does not endorse any tobacco, alcohol, marijuana, or illicit drug use. PAST PSYCHIATRIC HISTORY: Patient has a a history of depression and anxiety. She is unable to recall other medications aside from her Paxil and imipramine. Patient denies any previous psychiatric hospitalizations. Patient denies any psychiatric outpatient follow-up. Patient denies any history of suicide attempts in the past. PAST MEDICAL HISTORY: Asthma, Coronary Artery Disease (CAD), Diabetes Mellitus, GI Bleed, Hyperlipidemia, Hypertension, Renal Disease, Respiratory Disorder, Sleep Apnea/CPAP/BIPAP ALLERGIES: NKDA CHEMICAL DEPENDENCY HISTORY: as per HPI. FAMILY PSYCHIATRIC/SUBSTANCE USE HISTORY: denies SOCIAL HISTORY: Patient was born and raised in [place], [place]. She is currently on her second marriage and has been made with her for 20 years. She does report some conflicts with her but denies any history of physical abuse and reports that she feels safe to return back home. She reports that 3 of her grandchildren are currently living with her. 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 Highest level of education is graduating high school. She is Spiritism. She denies any history of legal problems. MENTAL STATUS EXAM: General Appearance: Patient appears to be stated age is alert, pleasant, and cooperative. Patient appears to have fair hygiene and grooming wearing hospital gown with fair eye contact. Behavior: Patient is calmly lying in bed without any agitated behavior. Speech: Patient's speech is fluent and nonpressured. Mood/Affect: Patient reports their mood is "doing okay", affect is congruent Suicidality/Homicidality: Patient denies having any suicidal or homicidal ideation intent or plan. Perceptions: Patient denies any visual hallucinations and denies any auditory hallucinations Though content/process: There is no evidence of any delusional thought content and thought process is linear and goal-directed. Memory and concentration: AOX4, grossly intact for the purposes of this session. Can spell "WORLD" backwards Judgment and insight: Fair IMPRESSIONS: Major depressive disorder PLAN: -At this time patient DOES NOT meet criteria for inpatient psychiatric admission. -Delirium precautions recommended with patient including - avoiding use of narcotics and NAMED ACCOUNT EXECUTIVE sedatives, limit anticholinergic medications when possible, frequent re-orientation, minimize use of restraints, open window shades during the day and close them at night -Would recommend the following medication changes: Okay to hold imipramine and Paxil at this time. Patient is not endorsing any signs or symptoms of discontinuation syndrome at this time. Would recommend a gradual introduction and titration of medications once the patient's h yponatremia is addressed. -Psychiatry will sign off at this point, please contact with any questions.
--- NOTE | 2020-07-21 14:01 | CONS ---
CONSULTATION REASON FOR CONSULT: Hyponatremia. HISTORY OF PRESENT ILLNESS: Patient is a 64-year-old female who was admitted to the hospital yesterday with complaints of weakness. The patient had been having nausea and vomiting for about 2-3 days prior to admission. She stated she had been drinking large amounts of water. She denies starting any new medications recently. The patient denies any previous history of low sodium levels. Her sodium was 123 on admission and it has decreased to 122 and now it is up to 129. The patient's blood pressure was actually on the higher side and it is at 119 mmHg currently. The patient did receive IV fluids which are now discontinued. At home, the patient was not on any thiazide diuretics. Urine osmolality was 439. PAST MEDICAL HISTORY: Significant for hypertension, hyperlipidemia, coronary artery disease, type 2 diabetes, history of GI bleed, history of obstructive sleep apnea, history of sarcoidosis, bronchitis, aortic stenosis, history of colostomy, details not available, previous history of hydronephrosis. The patient has a neurogenic bladder with chronic Humphrey catheter. Previous history of MRSA infection. PAST SURGICAL HISTORY: Bowel resection, tubal ligation, surgery for sigmoid volvulus with bowel resection and colostomy, colonoscopies, bronchoscopies, D&C. SOCIAL HISTORY: Negative for smoking, drug abuse or alcohol abuse. MEDICATIONS: Medications prior to admission included aspirin, Lipitor, Pulmicort, Tofranil, Paxil, Ditropan, metformin, vitamin D3, insulin, probiotics, multivitamins, Metamucil. ALLERGIES: None. EXAMINATION: Patient is currently comfortable, awake, she is not in any acute distress. Blood pressure was 116/70, heart rate 94 per minute, she is afebrile. Examination of the heart S1, S2. Examination of the lungs, bilateral breath sounds are heard. Abdomen is soft, nontender. Examination of lower extremities shows no significant edema. 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 LAB: Show sodium of 129, potassium 4.4, chloride 95, CO2 is 29, BUN 8, serum creatinine 0.62. Hemoglobin was 12.0. ASSESSMENT: 1. Hyponatremia. The patient is euvolemic and her serum sodium worsened with normal saline, suggesting underlying syndrome of inappropriate antidiuretic hormone. Serum sodium has improved with discontinuation of IV fluids. The patient is encouraged to increase oral intake. Urine osmolality was on the higher side at 439. The patient is also advised to restrict fluids. There is a documented history of sarcoidosis previously. I will obtain a chest x-ray. 2. History of hydronephrosis mentioned in the H and P, however, CT scan done this admission does not show any evidence of hydronephrosis in either kidney. 3. A 2 mm left renal calculus, nonobstructive. 4. History of sigmoid volvulus bowel obstruction and colostomy. 5. Nausea and vomiting prior to admission, currently improved. PLAN: Continue with fluid restriction. Agree with discontinuation of saline. Psych consult has been placed regarding medications. The patient was on Paxil prior to admission. I do not believe the dose has been changed recently. There is concern for possible SIADH from Paxil. Thank you for this consultation. We will continue to follow the patient with you during her hospitalization. MMODL / IJN: [id number] /
--- NOTE | 2020-07-21 14:52 | P.PN ---
Subjective patient is admitted for gram-negative hyponatremia appears to be secondary to SIADH may be related to Paxil and imipramine, these are being held at this time. Patient the remains on fluid restriction this can you IV fluids. Constitutional: Denied any fatigue denied any fever. Cardio vascular: denied any chest pain, palpitations Gastrointestinal denied any nausea vomiting Pulmonary: Denied any shortness of breath cough Neurologic denied any new focal deficits All inpatient medications were reviewed and appropriate changes in these medications as dictated in the interval history and assessment and plan. Objective - Vital Signs Vital signs: Vital Signs Temp 98.6 F 07/21/20 14:45 Pulse 94 07/21/20 14:45 Resp 17 07/21/20 14:45 BP 129/78 07/21/20 14:45 Pulse Ox 98 07/21/20 14:45 Intake & Output 07/20/20 07/21/20 07/21/20 18:59 06:59 18:59 Intake Total 150 Output Total 4400 Balance -4250 Weight 90.718 kg 90.718 kg Intake: Intake, IV Titration 150 Amount Sodium Chloride 0.9% 1, 150 000 ml @ 75 mls/hr IV . [id number] [facility] Rx#:[id number] Output: Urine 4400 Other: Voiding Method Indwelling Catheter Indwelling Catheter # Voids 3 - Exam PHYSICAL EXAMINATION: GENERAL: The patient is alert and oriented x3, not in any acute distress. Well developed, well nourished. obese HEENT: Pupils are round and equally reacting to light. EOMI. No scleral icterus. No conjunctival pallor. Normocephalic, atraumatic. No pharyngeal erythema. No thyromegaly. CARDIOVASCULAR: S1 and S2 present. No murmurs, rubs, or gallops. PULMONARY: Chest is clear to auscultation, no wheezing or crackles. ABDOMEN: Soft, nontender, nondistended, normoactive bowel sounds. No palpable organomegaly. MUSCULOSKELETAL: No joint swelling or deformity. EXTREMITIES: No cyanosis, clubbing, or pedal edema. NEUROLOGICAL: Gross neurological examination did not reveal any focal deficits. SKIN: No rashes. - Labs CBC & Chem 7: 07/21/20 12:02 07/21/20 07:34 Labs: Abnormal Lab Results - Last 24 Hours (Table) 07/20/20 07/20/20 07/21/20 Range/Units 17:57 23:01 07:34 Lymphocytes # (1.0-4.8) k/uL Sodium 124 L 122 L 129 L (137-145) mmol/L Chloride 89 L 90 L 95 L (98-107) mmol/L Creatinine 0.50 L (0.52-1.04) mg/dL Glucose 163 H 196 H 175 H (74-99) mg/dL POC Glucose (mg/dL) (75-99) mg/dL Calcium 8.3 L (8.4-10.2) mg/dL 07/21/20 07/21/20 07/21/20 Range/Units 07:58 11:42 12:02 Lymphocytes # 0.9 L (1.0-4.8) k/uL Sodium (137-145) mmol/L Chloride (98-107) mmol/L Creatinine (0.52-1.04) mg/dL Glucose (74-99) mg/dL POC Glucose (mg/dL) 157 H 181 H (75-99) mg/dL Calcium (8.4-10.2) mg/dL Microbiology - Last 24 Hours (Table) 07/20/20 10:43 Blood Culture - Preliminary Blood No Growth after 24 hours Assessment and Plan Plan: euvolemic hyponatremia: Secondary to possibly SIADH, holding off imipramine and paroxetine. Was evaluated by psychiatry and nephrology Acute gastroenteritis Chronic urine incontinence and neurogenic bladder status post indwelling Humphrey catheter Chronic hypoxic respiratory failure secondary to morbid obesity and restrictive lung disease on 3 L oxygen via nasal cannula Obstructive sleep apnea on CPAP Olivopontocerebellar degeneration. 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
[2020-07-21] MEDS: MAGNESIUM SULFATE-D5W PMX 1 GM in DEXTROSE/WATER 1 100ML.BAG IVPB SCH ×2 (15:24→17:23)
[2020-07-21 17:34] LABS: Glucose,Whole Blood 239 mg/dL (75-99)
[2020-07-21 22:16] LABS: Glucose,Whole Blood 351 mg/dL (75-99)
[2020-07-21] MEDS ORDERED: VANCOMYCIN IV PER PHARMACY 1 EACH MISC MISCELLANE PRN (23:04)
[2020-07-22] MEDS ORDERED: VANCOMYCIN 1,500 MG in SODIUM CHLORIDE 0.9% 250 ML IVPB ONE (01:00)
[2020-07-22 06:54] LABS: Basophils % (A) 1 %; Eosinophils # (A) 0.3 k/uL (0-0.7); Eosinophils % (A) 5 %; HCT 36.2 % (34.0-46.0); HGB 11.3 gm/dL (11.4-16.0); Hypochromasia Slight; Lymphocytes % (A) 16 %; MCHC 31.3 g/dL (31.0-37.0); MCV 89.5 fL (80.0-100.0); Mean Platelet Volume 8.7; Monocytes # (A) 0.4 k/uL (0-1.0); Monocytes % (A) 7 %; Neutrophils # (A) 4.1 k/uL (1.3-7.7); Neutrophils % (A) 69 %; Platelet Count 229 k/uL (150-450); RBC 4.04 m/uL (3.80-5.40); RDW 14.2 % (11.5-15.5); WBC 5.9 k/uL (3.8-10.6)
[2020-07-22 07:17] LABS: Glucose,Whole Blood 241 mg/dL (75-99)
[2020-07-22] MEDS: ASPIRIN 81 MG PO SCH (08:01)
[2020-07-22] MEDS: MAGNESIUM OXIDE 400 MG TAB PO SCH (08:01)
[2020-07-22] MEDS: ATORVASTATIN 20 MG TAB PO SCH (08:01)
[2020-07-22] MEDS: metFORMIN 500 MG TAB PO SCH (08:01)
[2020-07-22] MEDS: ALBUTEROL NEBULIZED 2.5 MG/3 ML INHALATION PRN (08:11)
--- NOTE | 2020-07-22 09:39 | P.PN ---
Subjective Progress Note Date: 07/22/20 Principal diagnosis: This is a 65-year-old female seen in consultation because of hyponatremia. He was admitted with nausea vomiting abdominal discomfort. Her hyponatremia Is real med to be from SIADH. She did admit to drinking large amounts of water to swallow her pills. She was initially given IV fluids and then that was discontinued. She has a 2 mm left renal calculus which is nonobstructive. She is known with multiple medical problems including diabetes, heart disease, COPD, sarcoidosis, colostomy a neurogenic bladder with a chronic indwelling Humphrey. Her sodium is improved to 129 as of yesterday morning creatinine is 0.6 BUN is 8 Bicarb is 29. Urine sodium though is reported as 149 and urine osmolality is 439 Objective - Vital Signs Vital signs: Vital Signs Temp 97.7 F 07/22/20 07:00 Pulse 88 07/22/20 08:22 Resp 18 07/22/20 07:00 BP 136/82 07/22/20 07:00 Pulse Ox 98 07/22/20 07:00 Intake & Output 07/21/20 07/22/20 07/22/20 18:59 06:59 18:59 Intake Total 300 Output Total 900 3800 Balance -900 -3500 Intake: Intake, IV Titration 300 Amount Sodium Chloride 0.9% 1, 300 000 ml @ 75 mls/hr IV . [id number] [facility] Rx#:[id number] Output: Urine 900 3800 Other: Voiding Method Indwelling Catheter Indwelling Catheter Indwelling Catheter # Voids 3 3 On examination awake alert oriented comfortable HEENT exam no JVP neck is supple no facial asymmetry Lungs are clear to auscultation fair air entry bilaterally Heart sounds unremarkable for any murmur rub gallop Abdomen soft she has a colostomy bag she is somewhat obese Extremity exam was no edema Neurologically awake alert oriented. She has a Humphrey catheter chronic indwelling - Labs CBC & Chem 7: 07/22/20 06:16 07/21/20 07:34 Labs: Abnormal Lab Results - Last 24 Hours (Table) 07/21/20 07/21/20 07/21/20 Range/Units 11:42 12:02 17:33 Hgb (11.4-16.0) gm/dL Lymphocytes # 0.9 L (1.0-4.8) k/uL POC Glucose (mg/dL) 181 H 239 H (75-99) mg/dL 07/21/20 07/22/20 07/22/20 Range/Units 22:12 06:16 07:13 Hgb 11.3 L (11.4-16.0) gm/dL Lymphocytes # (1.0-4.8) k/uL POC Glucose (mg/dL) 351 H 241 H (75-99) mg/dL Microbiology - Last 24 Hours (Table) 07/20/20 10:43 Blood Culture Gram Stain - Preliminary Blood 07/20/20 10:43 Blood Culture - Final Blood Assessment and Plan Assessment: Impression 1. Hyponatremia is possibly SIADH with the excessively high urine sodium indicated of possibly IV saline at the time. Improved sodium on fluid restriction 2. Admitted with nausea vomiting resolved 3. Significant history of sarcoidosis, COPD, diabetes, ASHD colostomy and chronic neurogenic bladder with an indwelling Humphrey. Recommendation 1. Will wait for today's labs and if necessary will restudy her's hyponatremia. Currently will maintain the fluid restriction and hypotension and high protein intake and monitor labs
[2020-07-22 09:45] LABS: African American GFR (CKD) 106.9 (60.0-200.0); Anion Gap 7.8 mmol/L (4.00-12.00); BUN/Creat Ratio 11.43 Ratio (12.00-20.00); Calcium 8.7 mg/dL (8.7-10.3); Carbon Dioxide 31.2 mmol/L (21.6-31.8); Non-African American GFR(CKD) 92.2 (60.0-200.0); Potassium 4.6 mmol/L (3.5-5.5)
[2020-07-22 11:36] LABS: Glucose,Whole Blood 316 mg/dL (75-99)
[2020-07-22] MEDS ORDERED: VANCOMYCIN 1,500 MG in SODIUM CHLORIDE 0.9% 250 ML IVPB SCH (15:00)
[2020-07-22 15:27] VITALS: BP 123/78; PULSE 99; RESP 19; TEMP 98
--- NOTE | 2020-07-22 15:35 | P.DS ---
Providers Date of admission: 07/20/20 13:11 Attending physician: Tc Foy MD Consults: 07/20/20 13:30 Consult Physician Urgent Consulting Provider: Lillie Reyna Consult Reason/Comments: Hyponatremia Do you want consulting provider notified?: Yes 07/20/20 21:29 Consult Physician Routine Consulting Provider: Rancho Kirk Consult Reason/Comments: holding imipramine and paxil for hyponatremia Do you want consulting provider notified?: Yes, Notify in am Primary care physician: [facility] Course: patient is admitted for euvolemic hyponatremia appears to be secondary to SIADH may be related to Paxil and imipramine, these are being held at this time. Patient the remains on fluid restriction this can you IV fluids. 07/22 2020 this is being discharged today his serum sodium improved 139 discussed with nephrology the recommending to start one or both of her antidepressant medications patient's imipramine will be held until seen by nephrology patient will be started on Paxil. Patient discharged with fluid restriction of 1500 mL. Patient blood sugars are bit elevated as her long-acting insulin is being held which will be resumed again. PHYSICAL EXAMINATION: GENERAL: The patient is alert and oriented x3, not in any acute distress. Well developed, well nourished. HEENT: Pupils are round and equally reacting to light. EOMI. No scleral icterus. No conjunctival pallor. Normocephalic, atraumatic. No pharyngeal erythema. No thyromegaly. CARDIOVASCULAR: S1 and S2 present. No murmurs, rubs, or gallops. PULMONARY: Chest is clear to auscultation, no wheezing or crackles. ABDOMEN: Soft, nontender, nondistended, normoactive bowel sounds. No palpable organomegaly. MUSCULOSKELETAL: No joint swelling or deformity. EXTREMITIES: No cyanosis, clubbing, or pedal edema. NEUROLOGICAL: Gross neurological examination did not reveal any focal deficits. SKIN: No rashes. 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 brain stem Morbid obesity Diabetes mellitus Hypertension Hyperlipidemia History of sarcoidosis History of GI bleed Left adrenal masses, stable since 2010, looks benign Patient Condition at Discharge: Stable Plan - Discharge Summary Discharge Rx Participant: No New Discharge Prescriptions: Continue Atorvastatin Calcium [Lipitor] 20 mg PO DAILY [place]-3 Fatty Acids/Fish Oil [Fish Oil 1,000 mg Softgel] 1 cap PO DAILY Aspirin 81 mg PO DAILY PARoxetine HCL [Paxil] 20 mg PO DAILY Budesonide [Pulmicort] 0.5 mg INHALATION RT-BID Oxybutynin Xl [Ditropan XL] 5 mg PO DAILY Albuterol Nebulized [Ventolin Nebulized] 2.5 mg INHALATION RT-QID PRN PRN Reason: Shortness Of Breath metFORMIN HCL 1,000 mg PO BID Insulin Glargine,Hum.rec.anlog [Lantus Solostar] 45 unit SQ HS Multivitamins, Thera [Multivitamin (formulary)] 1 tab PO DAILY L.acidoph,Paracasei, B.lactis [Probiotic] 1 cap PO DAILY Cholecalciferol [Vitamin D3 (25 Mcg = 1000 Iu)] 1,000 unit PO DAILY INSULIN ASPART (NovoLOG) [NovoLOG (formulary)] See Protocol SQ ACHS PRN PRN Reason: SUGAR OVER 150 Psyllium Husk (with Sugar) [Metamucil Powder] 1 tbsp PO DAILY Lactulose [Cephulac] 10 gm PO BID PRN PRN Reason: Constipation Imipramine [Tofranil] 25 mg PO BID #0 Discharge Medication List Aspirin 81 mg PO DAILY 11/10/15 [History] Atorvastatin Calcium [Lipitor] 20 mg PO DAILY 11/10/15 [History] Budesonide [Pulmicort] 0.5 mg INHALATION RT-BID 11/10/15 [History] [place]-3 Fatty Acids/Fish Oil [Fish Oil 1,000 mg Softgel] 1 cap PO DAILY 11/10/15 [History] PARoxetine HCL [Paxil] 20 mg PO DAILY 11/10/15 [History] Albuterol Nebulized [Ventolin Nebulized] 2.5 mg INHALATION RT-QID PRN 11/11/15 [History] Oxybutynin Xl [Ditropan XL] 5 mg PO DAILY 11/11/15 [History] metFORMIN HCL 1,000 mg PO BID 10/08/19 [History] Insulin Glargine,Hum.rec.anlog [Lantus Solostar] 45 unit SQ HS 06/16/20 [History] Cholecalciferol [Vitamin D3 (25 Mcg = 1000 Iu)] 1,000 unit PO DAILY 07/20/20 [History] INSULIN ASPART (NovoLOG) [NovoLOG (formulary)] See Protocol SQ ACHS PRN 07/20/20 [History] L.acidoph,Paracasei, B.lactis [Probiotic] 1 cap PO DAILY 07/20/20 [History] Lactulose [Cephulac] 10 gm PO BID PRN 07/20/20 [History] Multivitamins, Thera [Multivitamin (formulary)] 1 tab PO DAILY 07/20/20 [History] Psyllium Husk (with Sugar) [Metamucil Powder] 1 tbsp PO DAILY 07/20/20 [History] Imipramine [Tofranil] 25 mg PO BID #0 07/22/20 [Rx] Follow up Appointment(s)/Referral(s): Sandrine López MD [STAFF PHYSICIAN] - 3 Days (office closed at time of discharge. Please call Friday to schedule appointment ) Zita Barboza MD [Primary Care Provider] - 3 Days (office closed at time of discharge. Please call Friday to schedule an appointment ) Activity/Diet/Wound Care/Special Instructions: Diabetic, cardiac, 150cc fluid restricted Discharge Disposition: HOME SELF-CARE
[2020-07-22 17:09] LABS: Glucose,Whole Blood 313 mg/dL (75-99)
== END 2020-07-22 17:46 | disposition home or self-care (01) | DRG 644 ==
LOC: EC 10:04 → 6NMEDSUR 13:11 → 4SSUR 20:08
PROVIDERS: ADMIT Internal Medicine; ATTEND Internal Medicine
DX: E22.2 Syndrome of inappropriate secretion of antidiuretic hormone (principal); J96.11 Chronic respiratory failure with hypoxia; G23.8 Other specified degenerative diseases of basal ganglia; Z20.828 Contact with and (suspected) exposure to other viral communicable diseases; E11.41 Type 2 diabetes mellitus with diabetic mononeuropathy; Z99.81 Dependence on supplemental oxygen; E66.01 Morbid (severe) obesity due to excess calories; D86.0 Sarcoidosis of lung; E27.9 Disorder of adrenal gland, unspecified; J44.9 Chronic obstructive pulmonary disease, unspecified; Z79.4 Long term (current) use of insulin; Z93.3 Colostomy status; E78.5 Hyperlipidemia, unspecified; I10 Essential (primary) hypertension; I25.10 Atherosclerotic heart disease of native coronary artery without angina pectoris; G47.33 Obstructive sleep apnea (adult) (pediatric); I35.0 Nonrheumatic aortic (valve) stenosis; N31.9 Neuromuscular dysfunction of bladder, unspecified; E86.1 Hypovolemia; F32.9 Major depressive disorder, single episode, unspecified; F41.9 Anxiety disorder, unspecified; E83.42 Hypomagnesemia; K52.9 Noninfective gastroenteritis and colitis, unspecified; N20.0 Calculus of kidney; N39.498 Other specified urinary incontinence; R26.9 Unspecified abnormalities of gait and mobility; Z79.82 Long term (current) use of aspirin; Z79.899 Other long term (current) drug therapy; Z87.19 Personal history of other diseases of the digestive system; Z87.440 Personal history of urinary (tract) infections; Z68.36 Body mass index [BMI] 36.0-36.9, adult; Z86.14 Personal history of Methicillin resistant Staphylococcus aureus infection; Z98.51 Tubal ligation status; Z90.49 Acquired absence of other specified parts of digestive tract; Z98.890 Other specified postprocedural states; Z80.0 Family history of malignant neoplasm of digestive organs; Z82.49 Family history of ischemic heart disease and other diseases of the circulatory system; Z83.3 Family history of diabetes mellitus
CPT/HCPCS: 36415; 74177; 80048; 80053; 81001; 82310; 83605; 83735; 83930; 83935; 84133; 84300; 84540; 84560; 85025; 87040; 87635; 94640; 96365; 96375; 99285

== ENCOUNTER 2020-09-19 09:12 | Observation (INO) | payer MEDICARE ==
[2020-09-19] MEDS ORDERED: DEXTROSE 5%-0.45% NACL 1,000 ML IV ONE (09:25)
[2020-09-19 09:28] LABS: Glucose,Whole Blood 134 mg/dL (75-99)
[2020-09-19] MEDS ORDERED: ACETAMINOPHEN TAB 325 MG TAB PO PRN (09:38)
[2020-09-19] MEDS ORDERED: NALOXONE 0.4 MG/ML 1 ML VIAL IV PRN (09:38)
--- NOTE | 2020-09-19 09:38 | ED ---
General Adult HPI - General Chief complaint: Urogenital Stated complaint: hypoglycemia & UTI Time Seen by Provider: 09/19/20 09:14 Source: patient, RN notes reviewed, old records reviewed Mode of arrival: EMS Limitations: physical limitation - History of Present Illness Initial comments: 65-year-old female with diabetes presenting from outside hospital with confusion, hypoglycemia. According to paramedics initial blood sugar was 25 the patient was diaphoretic. She was given dextrose and transferred to an outside hospital. Workup was initiated at this hospital which included chest x-ray, laboratory testing, EKG. Patient does have a baseline neurodegenerative disease and what she states is been diagnosed as MS. She is currently on metformin, Lantus and NovoLog. She states she had taken her Lantus yesterday evening as she normally would. She denies chest pain or dyspnea. She's had a mild productive cough. Denies fever. Denies abdominal pain nausea vomiting. History of colostomy. - Related Data Home Medications Medication Instructions Recorded Confirmed Aspirin 81 mg PO DAILY 11/10/15 07/20/20 Atorvastatin Calcium [Lipitor] 20 mg PO DAILY 11/10/15 07/20/20 Budesonide [Pulmicort] 0.5 mg INHALATION RT-BID 11/10/15 07/20/20 [place]-3 Fatty Acids/Fish Oil [Fish 1 cap PO DAILY 11/10/15 07/20/20 Oil 1,000 mg Softgel] PARoxetine HCL [Paxil] 20 mg PO DAILY 11/10/15 07/20/20 Albuterol Nebulized [Ventolin 2.5 mg INHALATION RT-QID PRN 11/11/15 07/20/20 Nebulized] Oxybutynin Xl [Ditropan XL] 5 mg PO DAILY 11/11/15 07/20/20 metFORMIN HCL 1,000 mg PO BID 10/08/19 07/20/20 Insulin Glargine,Hum.rec.anlog 45 unit SQ HS 06/16/20 07/20/20 [Lantus Solostar] Cholecalciferol [Vitamin D3 (25 1,000 unit PO DAILY 07/20/20 07/20/20 Mcg = 1000 Iu)] INSULIN ASPART (NovoLOG) [NovoLOG See Protocol SQ ACHS PRN 07/20/20 07/20/20 (formulary)] L.acidoph,Paracasei, B.lactis 1 cap PO DAILY 07/20/20 07/20/20 [Probiotic] Lactulose [Cephulac] 10 gm PO BID PRN 07/20/20 07/20/20 Multivitamins, Thera [Multivitamin 1 tab PO DAILY 07/20/20 07/20/20 (formulary)] Psyllium Husk (with Sugar) 1 tbsp PO DAILY 07/20/20 07/20/20 [Metamucil Powder] Previous Rx's Medication Instructions Recorded Imipramine [Tofranil] 25 mg PO BID #0 07/22/20 Allergies Allergy/AdvReac Type Severity Reaction Status Date / Time No Known Allergies Allergy Verified 09/19/20 09:26 Review of Systems ROS Statement: Those systems with pertinent positive or pertinent negative responses have been documented in the HPI. ROS Other: All systems not noted in ROS Statement are negative. 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, IDDM type II, neuropathy R leg, sarcoidosis/lungs, bronchitis, aortic stenosis/murmur, past c hronic constipation, colostomy, occasional incontinence of stool, lower GI bleed, chronic urinary incontinence/neurogenic bladder/chronic Humphrey/frequent urinary tract infections/sepsis, anemia, gait dysfunction-pt is lifted to electric w/c, obstructive sleep apnea with Cpap use, chronic hydronephrosis of the kidneys, colostomy History of Any Multi-Drug Resistant Organisms: C-DIFF, MRSA Date of last positivie culture/infection: 11/2015 MDRO Source:: c-diff, mrsa 2011 in blood Past Surgical History: Bowel Resection, Tubal Ligation Additional Past Surgical History / Comment(s): 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, EGD, colonoscopies, bronchoscopies x3, carpal tunnel release-laterallity unknown, D&C Past Anesthesia/Blood Transfusion Reactions: No Reported Reaction Past Psychological History: Anxiety, Depression Smoking Status: Never smoker Past Alcohol Use History: None Reported Past Drug Use History: None Reported - Past Family History Father Family Medical History: Cancer Additional Family Medical History / Comment(s): from pancreatic cancer Mother Family Medical History: Congestive Heart Failure (CHF), Diabetes Mellitus, Dialysis Additional Family Medical History / Comment(s): from CHF General Exam Limitations: physical limitation General appearance: lethargic Head exam: Present: atraumatic, normocephalic Eye exam: Present: normal appearance ENT exam: Present: mucous membranes dry Neck exam: Present: normal inspection. Absent: tenderness, meningismus Respiratory exam: Present: decreased breath sounds. Absent: respiratory distress, wheezes Cardiovascular Exam: Present: regular rate, normal rhythm GI/Abdominal exam: Present: soft, other (Ostomy). Absent: distended, tenderness, guarding Extremities exam: Present: normal inspection, normal capillary refill. Absent: pedal edema Neurological exam: Present: alert Skin exam: Present: warm, dry, intact. Absent: cyanosis, diaphoretic Course Vital Signs 09/19/20 09:17 Temperature 97.6 F Pulse Rate 86 Respiratory 18 Rate Blood Pressure 156/79 O2 Sat by Pulse 100 Oximetry Medical Decision Making - Medical Decision Making Patient was transferred for treatment of UTI, and glucose monitoring. Initial blood glucose in the emergency Department is 134 which was while the patient was on D10. Patient is switched to D5 4 5. She had been given antibiotics for uri nary tract infection prior to transfer these will be continued. Laboratory testing revealed a mild leukocytosis of 12, hemoglobin of 11.7. She had a creatinine of 0.6. Lactic acid 1.4. Troponin was negative, potassium was normal at 3.7, sodium was 137. Overall her laboratory testing was unremarkable with the exception of this hypoglycemia. She will be admitted for glucose monitoring, IV fluids with dextrose, antibiotics for UTI. - Lab Data Lab Results 09/19/20 Range/Units 09:26 POC Glucose (mg/dL) 134 H (75-99) mg/dL POC Glu Otr [employer] Mercedes Olivas Disposition Clinical Impression: Acute confusion, Diabetes mellitus type 2, insulin dependent, UTI (urinary tract infection), Hypoglycemia Disposition: ADMITTED IP TO THIS HOSP Condition: Stable Is patient prescribed a controlled substance at d/c from ED?: No Referrals: Zita Barboza MD [Primary Care Provider] - 1-2 days Decision to Admit Reason: Admit from EC Decision Date: 09/19/20 Decision Time: 09:37
[2020-09-19 10:41] LABS: Amorphous Sediment,Urine Rare /hpf; Appearance,Urine Cloudy (Clear); Bilirubin,Urine Negative (Negative); Blood,Urine Negative (Negative); Color,Urine Colorless; Glucose,Urine (UA) Negative (Negative); Ketones,Urine Negative (Negative); Leukocyte Esterase,Urine Large (Negative); Nitrite,Urine Negative (Negative); PH, Urine 7.5 (5.0-8.0); Protein,Urine Negative (Negative); Specific Gravity,Urine 1.008 (1.001-1.035); Squamous Epithelial Cell,Urine <1 /hpf (0-4); Urobilinogen,Urine <2.0 mg/dL (<2.0); WBC,Urine 53 /hpf (0-5)
[2020-09-19 11:37] LABS: Glucose,Whole Blood 90 mg/dL (75-99)
[2020-09-19 12:26] LABS: Basophils # (A) 0.1 k/uL (0-0.2); Basophils % (A) 1 %; Eosinophils # (A) 0.3 k/uL (0-0.7); Eosinophils % (A) 3 %; HCT 36.6 % (34.0-46.0); HGB 11.5 gm/dL (11.4-16.0); Lymphocytes % (A) 11 %; MCH 28.1 pg (25.0-35.0); MCHC 31.4 g/dL (31.0-37.0); MCV 89.3 fL (80.0-100.0); Mean Platelet Volume 7.7; Monocytes # (A) 0.6 k/uL (0-1.0); Monocytes % (A) 7 %; Neutrophils # (A) 6.7 k/uL (1.3-7.7); Neutrophils % (A) 77 %; Platelet Count 282 k/uL (150-450); RBC 4.09 m/uL (3.80-5.40); RDW 14.4 % (11.5-15.5); WBC 8.7 k/uL (3.8-10.6)
[2020-09-19 12:37] LABS: Magnesium 1.6 mg/dL (1.6-2.3)
[2020-09-19 12:41] LABS: INR 0.9 (<1.2)
[2020-09-19] MEDS ORDERED: ALBUTEROL NEBULIZED 2.5 MG/3 ML INHALATION PRN (12:48)
[2020-09-19] MEDS ORDERED: LACTULOSE 20 GM/30 ML CUP PO PRN (12:48)
[2020-09-19] MEDS: PARoxetine 20 MG TAB PO SCH (13:41)
[2020-09-19 16:34] LABS: Glucose,Whole Blood 136 mg/dL (75-99)
[2020-09-19] MEDS: INSULIN ASPART (NovoLOG) 100 UNIT/ML VIAL SQ SCH ×2 (16:53→22:45)
--- NOTE | 2020-09-19 17:57 | P.HPIM ---
History of Present Illness H&P Date: 09/19/20 Chief Complaint: Hypoglycemia Patient is a 65-year-old female with a known history of chronic hypoxic respiratory failure on home oxygen at 3 L, morbid obesity, all he woke up on be suitable are degeneration with right leg weakness, diabetes type 2, peripheral neuropathy, sarcoidosis the lungs, I aortic stenosis, history of sigmoid volvulus with bowel resection/colostomy, chronic urinary incontinence, multiple sclerosis, gait dysfunctionpatient is lifted to an electric wheelchair, obstructive sleep apnea with CPAP, chronic hydronephrosis of the kidneys and anxiety/depression presents from outside hospital with confusion and hypoglycemia. Patient is on insulin at home for diabetes2. According to paramedics initial blood sugar was 25 and the patient was diaphoretic. Patient was given D50 and transferred to outside hospital. Patient had chest x-ray and laboratory data and EKG done at outpatient Hospital. Otherwise no complaints of chest pain or shortness breath. Patient does have cough with minimal mucus-like sputum production. No diarrhea noted in the colostomy. No fever no chills. Urinalysis showed cloudy with large leukocyte esterase and WBC 53 Review of Systems Complete review of systems could not be obtained from the patient except as per HPI. 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, IDDM type II, neuropathy R leg, sarcoidosis/lungs, bronchitis, aortic stenosis/murmur, past chronic constipation, colostomy, occasional incontinence of stool, lower GI bleed, chronic urinary incontinence/neurogenic bladder/chronic Humphrey/frequent urinary tract infections/sepsis, anemia, gait dysfunction-pt is lifted to electric w/c, obstructive sleep apnea with Cpap use, chronic hydronephrosis of the kidneys, colostomy History of Any Multi-Drug Resistant Organisms: C-DIFF, MRSA Date of last positivie culture/infection: 11/2015 MDRO Source:: c-diff, mrsa 2011 in blood Past Surgical History: Bowel Resection, Tubal Ligation Additional Past Surgical History / Comment(s): 2015 sigmoid volvulus with bowel resection/colostomy, EGD, colonoscopies, bronchoscopies x3, carpal tunnel release-laterallity unknown, D&C Past Anesthesia/Blood Transfusion Reactions: No Reported Reaction Past Psychological History: Anxiety, Depression Additional Psychological History / Comment(s): Pt resides with her spouse who is her caregiver. She is a lift to electric wheelchair. She has home oxygen and Cpap. Spouse states they have had different home care company use in the past. Smoking Status: Never smoker Past Alcohol Use History: None Reported Past Drug Use History: None Reported - Past Family History Father Family Medical History: Cancer Additional Family Medical History / Comment(s): from pancreatic cancer Mother Family Medical History: Congestive Heart Failure (CHF), Diabetes Mellitus, Dialysis Additional Family Medical History / Comment(s): from CHF Medications and Allergies Home Medications Medication Instructions Recorded Confirmed Type Aspirin 81 mg PO DAILY 11/10/15 09/19/20 History Atorvastatin Calcium [Lipitor] 20 mg PO DAILY 11/10/15 09/19/20 History Budesonide [Pulmicort] 0.5 mg INHALATION RT-BID 11/10/15 09/19/20 History [place]-3 Fatty Acids/Fish Oil [Fish 1 cap PO DAILY 11/10/15 09/19/20 History Oil 1,000 mg Softgel] PARoxetine HCL [Paxil] 20 mg PO DAILY 11/10/15 09/19/20 History Albuterol Nebulized [Ventolin 2.5 mg INHALATION RT-QID PRN 11/11/15 09/19/20 History Nebulized] Oxybutynin Xl [Ditropan XL] 5 mg PO DAILY 11/11/15 09/19/20 History metFORMIN HCL 1,000 mg PO BID 10/08/19 09/19/20 History Insulin Glargine,Hum.rec.anlog 45 unit SQ HS 06/16/20 09/19/20 History [Lantus Solostar] Cholecalciferol [Vitamin D3 (25 1,000 unit PO DAILY 07/20/20 09/19/20 History Mcg = 1000 Iu)] INSULIN ASPART (NovoLOG) [NovoLOG See Protocol SQ ACHS PRN 07/20/20 09/19/20 History (formulary)] L.acidoph,Paracasei, B.lactis 1 cap PO DAILY 07/20/20 09/19/20 History [Probiotic] Lactulose [Cephulac] 10 gm PO BID PRN 07/20/20 09/19/20 History Multivitamins, Thera [Multivitamin 1 tab PO DAILY 07/20/20 09/19/20 History (formulary)] Psyllium Husk (with Sugar) 1 tbsp PO DAILY 07/20/20 09/19/20 History [Metamucil Powder] Imipramine [Tofranil] 25 mg PO BID #0 07/22/20 09/19/20 Rx Allergies Allergy/AdvReac Type Severity Reaction Status Date / Time No Known Allergies Allergy Verified 09/19/20 09:26 Physical Exam Vitals: Vital Signs Temp Pulse Resp BP Pulse Ox 09/19/20 10:27 97.8 F 85 18 146/77 100 09/19/20 09:17 97.6 F 86 18 156/79 100 Intake and Output 09/18/20 09/19/20 09/19/20 22:59 06:59 14:59 Other: Voiding Method Indwelling Catheter Weight 85.729 kg PHYSICAL EXAMINATION: Patient is lying in the bed comfortably, no acute distress, awake alert and oriented 1. Obese. Able to follow simple commands... HEENT: Normocephalic. Neck is supple. Pupils reactive. Nostrils clear. Oral ca vity is moist. Ears reveal no drainage. Neck reveals no JVD, carotid bruits, or thyromegaly. CHEST EXAMINATION: Trachea is central. Symmetrical expansion. Bibasilar diminished air entry. Lung dee clear to auscultation and percussion. CARDIAC: Normal S1, S2 with no gallops. No murmurs ABDOMEN: Soft. Bowel sounds normal. Colostomy bag in place. No organomegaly. No abdominal bruits. Extremities: reveal no edema. No clubbing or cyanosis Neurologically awake, alert, oriented 0-1 with right-sided weakness. Expressive aphasia. Skin: No rash or skin lesions. Psychiatric: Coperative. Could not be assessed completely Musculoskeletal: No joint swelling or deformity. Results CBC & Chem 7: 09/19/20 11:45 Labs: Abnormal Lab Results - Last 24 Hours (Table) 09/19/20 Range/Units 09:26 POC Glucose (mg/dL) 134 H (75-99) mg/dL Thrombosis Risk Factor Assmnt - DVT/VTE Prophylaxis DVT/VTE Prophylaxis: Pharmacologic Prophylaxis ordered - Choose All That Apply Any of the Below Risk Factors Present?: Yes Each Factor Represents 1 point: Age 41-60 years, Medical pt on bed rest, Obesity (BMI >25), Swollen legs (current) Other Risk Factors: Yes Each Risk Factor Represents 2 Points: Age 61-74 years Other congenital or acquired thrombophilia - If yes, enter type in comment: No Thrombosis Risk Factor Assessment Total Risk Factor Score: 6 Thrombosis Risk Factor Assessment Level: High Risk Assessment and Plan Assessment: Confusion due to hypoglycemia. Improved to baseline now. Hypoglycemia due to insulin dose Acute urinary tract infection Diabetes type 2 insulin-dependent. Patient is on metformin, Levemir and insulin sliding scale at home. 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 Continue with insulin sliding scale and follow-up CBC and restart insulin regimen as tolerated. Started on antibiotics in the form of ceftriaxone and follow-up urine culture report. Continue with home medications. Further recommendations based on the clinical course. Time with Patient: Greater than 30
[2020-09-19] MEDS: BUDESONIDE 0.5 MG/2 ML NEBU INHALATION SCH (19:20)
[2020-09-19 19:58] LABS: Glucose,Whole Blood 169 mg/dL (75-99)
[2020-09-19 22:42] LABS: Glucose,Whole Blood 200 mg/dL (75-99)
[2020-09-19] MEDS: IMIPRAMINE 25 MG TAB PO SCH (22:48)
[2020-09-19] MEDS: HEPARIN SODIUM,PORCINE 5,000 UNIT/ML 1 ML VIAL SQ SCH (22:49)
[2020-09-19 22:52] LABS: African American GFR (CKD) 112.4 (60.0-200.0); Albumin 3.9 g/dL (3.80-4.90); Albumin/Globulin Ratio 1.63 (1.60-3.17); Anion Gap 7.6 mmol/L (4.00-12.00); Carbon Dioxide 29.4 mmol/L (21.6-31.8); Globulin 2.4 g/dL (1.6-3.3); Potassium 4.5 mmol/L (3.5-5.5); Total Bilirubin 0.2 mg/dL (0.2-1.2); Total Protein 6.3 g/dL (6.2-8.2)
[2020-09-19 23:58] LABS: Glucose,Whole Blood 186 mg/dL (75-99)
[2020-09-20 02:00] LABS: Glucose,Whole Blood 120 mg/dL (75-99)
[2020-09-20 03:54] LABS: Glucose,Whole Blood 102 mg/dL (75-99)
[2020-09-20 05:53] LABS: Glucose,Whole Blood 62 mg/dL (75-99)
[2020-09-20 06:01] LABS: Basophils # (A) 0.1 k/uL (0-0.2); Basophils % (A) 1 %; Eosinophils # (A) 0.5 k/uL (0-0.7); Eosinophils % (A) 5 %; HCT 39.3 % (34.0-46.0); HGB 12.7 gm/dL (11.4-16.0); Lymphocytes # (A) 1.1 k/uL (1.0-4.8); Lymphocytes % (A) 13 %; MCHC 32.3 g/dL (31.0-37.0); MCV 89.8 fL (80.0-100.0); Mean Platelet Volume 7.2; Monocytes # (A) 0.6 k/uL (0-1.0); Monocytes % (A) 7 %; Neutrophils # (A) 6.6 k/uL (1.3-7.7); Neutrophils % (A) 74 %; Platelet Count 278 k/uL (150-450); RBC 4.37 m/uL (3.80-5.40); RDW 14.2 % (11.5-15.5); WBC 8.9 k/uL (3.8-10.6)
[2020-09-20 06:13] LABS: Glucose,Whole Blood 71 mg/dL (75-99)
[2020-09-20] MEDS: INSULIN ASPART (NovoLOG) 100 UNIT/ML VIAL SQ SCH ×4 (07:13→22:05)
[2020-09-20 07:14] LABS: Glucose,Whole Blood 113 mg/dL (75-99)
[2020-09-20] MEDS: HEPARIN SODIUM,PORCINE 5,000 UNIT/ML 1 ML VIAL SQ SCH ×2 (08:09→15:49)
[2020-09-20] MEDS: ATORVASTATIN 20 MG TAB PO SCH (08:10)
[2020-09-20] MEDS: ASPIRIN 81 MG PO SCH (08:10)
[2020-09-20] MEDS: IMIPRAMINE 25 MG TAB PO SCH ×2 (08:11→22:06)
[2020-09-20] MEDS: CHOLECALCIFEROL 1,000 UNIT TAB PO SCH (08:11)
[2020-09-20] MEDS: MULTIVITAMINS, THERA 1 EACH TAB PO SCH (08:11)
[2020-09-20] MEDS: LACTOBACILLUS ACIDOPH & BULGAR 1 EACH PACKET PO SCH (08:11)
[2020-09-20] MEDS: PARoxetine 20 MG TAB PO SCH (08:12)
[2020-09-20] MEDS: PSYLLIUM HUSK 100% 6 GM PACKET PO SCH (08:12)
[2020-09-20] MEDS ORDERED: DEXTROSE 5%-0.45% NACL 1,000 ML IV SCH (08:30)
[2020-09-20] MEDS: BUDESONIDE 0.5 MG/2 ML NEBU INHALATION SCH ×2 (09:00→19:48)
[2020-09-20] MEDS ORDERED: OXYBUTYNIN XL 5 MG TAB.ER.24 PO SCH (09:00)
[2020-09-20] MEDS ORDERED: NON FORMULARY DRUG (Omega-3 Fatty Acids/Fish Oil [Fish Oil 1,000 Mg Softgel] 1 EACH Capsul PO SCH (09:00)
[2020-09-20 09:16] LABS: Glucose,Whole Blood 187 mg/dL (75-99)
[2020-09-20 10:21] LABS: African American GFR (CKD) 106.9 (60.0-200.0); Anion Gap 8.5 mmol/L (4.00-12.00); BUN/Creat Ratio 14.29 Ratio (12.00-20.00); Calcium 9.4 mg/dL (8.7-10.3); Carbon Dioxide 27.5 mmol/L (21.6-31.8); Non-African American GFR(CKD) 92.2 (60.0-200.0); Potassium 4.8 mmol/L (3.5-5.5)
[2020-09-20 11:45] LABS: Glucose,Whole Blood 272 mg/dL (75-99)
--- NOTE | 2020-09-20 14:56 | P.GSCN ---
History of Present Illness Consult date: 09/20/20 Reason for Consult: UTI, Urinary incontinence History of present illness: Ms Freeman is a 65 year-old female with multiple comorbidities. She has hx of chronic retention secondary to MS. her bladder has been managed by a Humphrey catheter for the past 15 years, last catheter change was yesterday. She indicated she is been having worsening leakage around the catheter for the past 24-48 hours. Denies any flank pain, gross hematuria. On presentation her UA is concerning for UTI. CT from 07/2020 showed no renal or bladder pathology. Review of Systems - Constitutional Denies fever, Denies weight loss - Cardiovascular Denies chest pain, Denies shortness of breath - Respiratory Denies cough, Denies 7 - Genitourinary Genitourinary: Denies flank pain, Denies hematuria - Neurological Denies headaches, Denies syncope 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, IDDM type II, neuropathy R leg, sarcoidosis/lungs, bronchitis, aortic stenosis/murmur, past chronic constipation, colostomy, occasional incontinence of stool, lower GI bleed, chronic urinary incontinence/neurogenic bladder/chronic Humphrey/frequent urinary tract infections/sepsis, anemia, gait dysfunction-pt is lifted to electric w/c, obstructive sleep apnea with Cpap use, chronic hydronephrosis of the kidneys, colostomy History of Any Multi-Drug Resistant Organisms: C-DIFF, 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 MDRO Source:: c-diff, mrsa 2010 in blood Past Surgical History: Bowel Resection, Tubal Ligation Additional Past Surgical History / Comment(s): 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, EGD, colonoscopies, bronchoscopies x3, carpal tunnel rel ease-laterallity unknown, D&C Past Anesthesia/Blood Transfusion Reactions: No Reported Reaction Past Psychological History: Anxiety, Depression Additional Psychological History / Comment(s): Pt resides with her spouse who is her caregiver. She is a lift to electric wheelchair. She has home oxygen and Cpap. Spouse states they have had different home care company use in the past. Smoking Status: Never smoker Past Alcohol Use History: None Reported Past Drug Use History: None Reported - Past Family History Father Family Medical History: Cancer Additional Family Medical History / Comment(s): from pancreatic cancer Mother Family Medical History: Congestive Heart Failure (CHF), Diabetes Mellitus, Dialysis Additional Family Medical History / Comment(s): from CHF Medications and Allergies Home Medications Medication Instructions Recorded Confirmed Type Aspirin 81 mg PO DAILY 11/10/15 09/19/20 History Atorvastatin Calcium [Lipitor] 20 mg PO DAILY 11/10/15 09/19/20 History Budesonide [Pulmicort] 0.5 mg INHALATION RT-BID 11/10/15 09/19/20 History [place]-3 Fatty Acids/Fish Oil [Fish 1 cap PO DAILY 11/10/15 09/19/20 History Oil 1,000 mg Softgel] PARoxetine HCL [Paxil] 20 mg PO DAILY 11/10/15 09/19/20 History Albuterol Nebulized [Ventolin 2.5 mg INHALATION RT-QID PRN 11/11/15 09/19/20 History Nebulized] Oxybutynin Xl [Ditropan XL] 5 mg PO DAILY 11/11/15 09/19/20 History metFORMIN HCL 1,000 mg PO BID 10/08/19 09/19/20 History Insulin Glargine,Hum.rec.anlog 45 unit SQ HS 06/16/20 09/19/20 History [Lantus Solostar] Cholecalciferol [Vitamin D3 (25 1,000 unit PO DAILY 07/20/20 09/19/20 History Mcg = 1000 Iu)] INSULIN ASPART (NovoLOG) [NovoLOG See Protocol SQ ACHS PRN 07/20/20 09/19/20 History (formulary)] L.acidoph,Paracasei, B.lactis 1 cap PO DAILY 07/20/20 09/19/20 History [Probiotic] Lactulose [Cephulac] 10 gm PO BID PRN 07/20/20 09/19/20 History Multivitamins, Thera [Multivitamin 1 tab PO DAILY 07/20/20 09/19/20 History (formulary)] Psyllium Husk (with Sugar) 1 tbsp PO DAILY 07/20/20 09/19/20 History [Metamucil Powder] Imipramine [Tofranil] 25 mg PO BID #0 07/22/20 09/19/20 Rx Allergies Allergy/AdvReac Type Severity Reaction Status Date / Time No Known Allergies Allergy Verified 09/19/20 09:26 Surgical - Exam Vital Signs Temp Pulse Resp BP Pulse Ox 97.6 F 86 18 156/79 100 09/19/20 09:17 09/19/20 09:17 09/19/20 09:17 09/19/20 09:17 09/19/20 09:17 - General no distress, no pain - Eyes PERRL - ENT normal nares, normal mucosa - Respiratory normal expansion, normal respiratory effort - Abdomen Abdomen: soft, non tender - Genitourinary Humphrey draining clear yellow urine - Psychiatric oriented to time, oriented to person, speech is normal Results - Labs 09/20/20 05:41 09/20/20 05:41 Abnormal Lab Results - Last 24 Hours (Table) 09/19/20 09/19/20 09/19/20 Range/Units 11:45 16:27 19:57 Glucose 67 L (70-110) mg/dL POC Glucose (mg/dL) 136 H 169 H (75-99) mg/dL 09/19/20 09/19/20 09/20/20 Range/Units 22:40 23:57 01:58 Glucose (70-110) mg/dL POC Glucose (mg/dL) 200 H 186 H 120 H (75-99) mg/dL 09/20/20 09/20/20 09/20/20 Range/Units 03:53 05:51 06:12 Glucose (70-110) mg/dL POC Glucose (mg/dL) 102 H 62 L 71 L (75-99) mg/dL 09/20/20 09/20/20 09/20/20 Range/Units 07:12 09:14 11:43 Glucose (70-110) mg/dL POC Glucose (mg/dL) 113 H 187 H 272 H (75-99) mg/dL Microbiology - Last 24 Hours (Table) 09/19/20 10:24 Urine Culture - Preliminary Urine,Voided Diabetes panel 09/19/20 09/20/20 Range/Units 11:45 05:41 Sodium 136 137 (135-145) mmol/L Potassium 4.5 4.8 (3.5-5.5) mmol/L Chloride 99 101 (96-109) mmol/L Carbon Dioxide 29.4 27.5 (21.6-31.8) mmol/L BUN 9.0 10.0 (9.0-27.0) mg/dL Creatinine 0.6 0.7 (0.6-1.5) mg/dL Glucose 67 L 76 (70-110) mg/dL Calcium 9.0 9.4 (8.7-10.3) mg/dL AST 25 (13-35) U/L ALT 36 (8-44) U/L Alkaline Phosphatase 80 (41-126) U/L Total Protein 6.3 (6.2-8.2) g/dL Albumin 3.90 (3.80-4.90) g/dL Calcium panel 09/19/20 09/20/20 Range/Units 11:45 05:41 Calcium 9.0 9.4 (8.7-10.3) mg/dL Albumin 3.90 (3.80-4.90) g/dL Pituitary panel 09/19/20 09/20/20 Range/Units 11:45 05:41 Sodium 136 137 (135-145) mmol/L Potassium 4.5 4.8 (3.5-5.5) mmol/L Chloride 99 101 (96-109) mmol/L Carbon Dioxide 29.4 27.5 (21.6-31.8) mmol/L BUN 9.0 10.0 (9.0-27.0) mg/dL Creatinine 0.6 0.7 (0.6-1.5) mg/dL Glucose 67 L 76 (70-110) mg/dL Calcium 9.0 9.4 (8.7-10.3) mg/dL Adrenal panel 09/19/20 09/20/20 Range/Units 11:45 05:41 Sodium 136 137 (135-145) mmol/L Potassium 4.5 4.8 (3.5-5.5) mmol/L Chloride 99 101 (96-109) mmol/L Carbon Dioxide 29.4 27.5 (21.6-31.8) mmol/L BUN 9.0 10.0 (9.0-27.0) mg/dL Creatinine 0.6 0.7 (0.6-1.5) mg/dL Glucose 67 L 76 (70-110) mg/dL Calcium 9.0 9.4 (8.7-10.3) mg/dL Total Bilirubin 0.2 (0.2-1.2) mg/dL AST 25 (13-35) U/L ALT 36 (8-44) U/L Alkaline Phosphatase 80 (41-126) U/L Total Protein 6.3 (6.2-8.2) g/dL Albumin 3.90 (3.80-4.90) g/dL Assessment and Plan Assessment: 65-year-old female admitted with UTI, chronic urinary retention be managed with Humphrey catheter. Has been catheter dependent for the past 15 years, last catheter change was yesterday. His been having worsening urinary incontinence. Her worsening incontinence could be secondary to her UTI -Increase Ditropan to 10 mg -Continue with monthly catheter change -Ok for discharge from urology standpoint once the culture is finalized, we'll need 7 days of antibiotics
[2020-09-20 16:38] LABS: Glucose,Whole Blood 220 mg/dL (75-99)
[2020-09-20 19:43] LABS: Glucose,Whole Blood 216 mg/dL (75-99)
[2020-09-20] MEDS ORDERED: INSULIN DETEMIR (LEVEMIR) 100 UNIT/ML SYR SQ SCH (21:00)
[2020-09-21] MEDS: HEPARIN SODIUM,PORCINE 5,000 UNIT/ML 1 ML VIAL SQ SCH ×2 (01:32→07:49)
[2020-09-21 01:49] LABS: Glucose,Whole Blood 185 mg/dL (75-99)
[2020-09-21 07:27] LABS: Glucose,Whole Blood 173 mg/dL (75-99)
[2020-09-21] MEDS: INSULIN ASPART (NovoLOG) 100 UNIT/ML VIAL SQ SCH ×2 (07:49→13:33)
[2020-09-21] MEDS: BUDESONIDE 0.5 MG/2 ML NEBU INHALATION SCH (08:25)
[2020-09-21] MEDS ORDERED: OXYBUTYNIN 10 MG TAB.ER.24 PO SCH (09:00)
[2020-09-21] MEDS: MULTIVITAMINS, THERA 1 EACH TAB PO SCH (09:04)
[2020-09-21] MEDS: LACTOBACILLUS ACIDOPH & BULGAR 1 EACH PACKET PO SCH (09:04)
[2020-09-21] MEDS: PARoxetine 20 MG TAB PO SCH (09:04)
[2020-09-21] MEDS: IMIPRAMINE 25 MG TAB PO SCH (09:04)
[2020-09-21] MEDS: PSYLLIUM HUSK 100% 6 GM PACKET PO SCH (09:04)
[2020-09-21] MEDS: CHOLECALCIFEROL 1,000 UNIT TAB PO SCH (09:09)
[2020-09-21] MEDS: ASPIRIN 81 MG PO SCH (09:09)
[2020-09-21] MEDS: ATORVASTATIN 20 MG TAB PO SCH (09:09)
--- NOTE | 2020-09-21 11:01 | P.PN ---
Subjective Progress Note Date: 09/20/20 Principal diagnosis: Hypoglycemia Acute urinary tract infection Patient is a 65-year-old female with a known history of chronic hypoxic respiratory failure on home oxygen at 3 L, morbid obesity, all he woke up on be suitable are degeneration with right leg weakness, diabetes type 2, peripheral neuropathy, sarcoidosis the lungs, I aortic stenosis, history of sigmoid volvulus with bowel resection/colostomy, chronic urinary incontinence, multiple sclerosis, gait dysfunctionpatient is lifted to an electric wheelchair, obstructive sleep apnea with CPAP, chronic hydronephrosis of the kidneys and anxiety/depression presents from outside hospital with confusion and hypoglycemia. Patient is on insulin at home for diabetes2. According to paramedics initial blood sugar was 25 and the patient was diaphoretic. Patient was given D50 and transferred to outside hospital. Patient had chest x-ray and laboratory data and EKG done at outpatient Hospital. Otherwise no complaints of chest pain or shortness breath. Patient does have cough with minimal mucus-like sputum production. No diarrhea noted in the colostomy. No fever no chills. Urinalysis showed cloudy with large leukocyte esterase and WBC 53 09/19/2020 Patient is currently resting in the bed comfortably. No complaints of chest pain or shortness of breath. Urine culture is not finalized yet. Patient is being continued on IV antibiotics in the form of ceftriaxone. Otherwise patient is tolerating oral diet and blood sugar is elevated to 200s now. D5 water has been discontinued and patient will be started on Levemir 30 units hitches. Patient was taking 45 units at bedtime at home along with metformin. Follow-up blood sugars tomorrow morning and anticipate discharge in next 24 hours. Patient has been afebrile. No headache or dizziness or lightheadedness. No nausea vomiting or diarrhea. Current medications reviewed. Objective - Vital Signs Vital signs: Vital Signs Temp 98.1 F 09/20/20 14:00 Pulse 104 H 09/20/20 14:00 Resp 20 09/20/20 14:00 BP 155/83 09/20/20 14:00 Pulse Ox 100 09/20/20 14:00 Intake & Output 09/19/20 09/20/20 09/20/20 18:59 06:59 18:59 Intake Total 240 Output Total 1100 2175 Balance -1099 Weight 85.729 kg Intake: Oral 240 Output: Urine 1100 2175 Other: Voiding Method Indwelling Catheter Indwelling Catheter Indwelling Catheter - Exam PHYSICAL EXAMINATION: Patient is lying in the bed comfortably, no acute distress, awake alert and oriented. Obese. HEENT: Normocephalic. Neck is supple. Pupils reactive. Nostrils clear. Oral cavity is moist. Ears reveal no drainage. Neck reveals no JVD, carotid bruits, or thyromegaly. CHEST EXAMINATION: Trachea is central. Symmetrical expansion. Bibasilar diminished air entry. Lung dee clear to auscultation and percussion. CARDIAC: Normal S1, S2 with no gallops. No murmurs ABDOMEN: Soft. Bowel sounds normal. No organomegaly. No abdominal bruits. Ostomy bag in place. Extremities: reveal no edema. No clubbing or cyanosis Neurologically awake, alert, oriented x3 with well-coordinated movements. No focal deficits noted Skin: No rash or skin lesions. Psychiatric: Coperative. Nonsuicidal Musculoskeletal: No joint swelling or deformity. Normal range of motion. - Labs CBC & Chem 7: 09/20/20 05:41 09/20/20 05:41 Labs: Abnormal Lab Results - Last 24 Hours (Table) 09/19/20 09/19/20 09/19/20 Range/Units 11:45 19:57 22:40 Glucose 67 L (70-110) mg/dL POC Glucose (mg/dL) 169 H 200 H (75-99) mg/dL 09/19/20 09/20/20 09/20/20 Range/Units 23:57 01:58 03:53 Glucose (70-110) mg/dL POC Glucose (mg/dL) 186 H 120 H 102 H (75-99) mg/dL 09/20/20 09/20/20 09/20/20 Range/Units 05:51 06:12 07:12 Glucose (70-110) mg/dL POC Glucose (mg/dL) 62 L 71 L 113 H (75-99) mg/dL 09/20/20 09/20/20 09/20/20 Range/Units 09:14 11:43 16:37 Glucose (70-110) mg/dL POC Glucose (mg/dL) 187 H 272 H 220 H (75-99) mg/dL Microbiology - Last 24 Hours (Table) 01/12/21 10:24 Urine Culture - Preliminary Urine,Voided Assessment and Plan Assessment: Confusion due to hypoglycemia. Improved to baseline now. Hypoglycemia due to insulin dose. Improved now. Acute urinary tract infection Diabetes type 2 insulin-dependent. Patient is on metformin, Levemir and insulin sliding scale at home. 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 D5W has been discontinued.. Co ntinue with insulin sliding scale and follow-up CBC and restart insulin regimen as tolerated. Started on antibiotics in the form of ceftriaxone and follow-up urine culture report. Continue with home medications. Further recommendations based on the clinical course. Time with Patient: Greater than 30
[2020-09-21 11:18] LABS: Glucose,Whole Blood 214 mg/dL (75-99)
[2020-09-21 11:51] VITALS: RESP 16
[2020-09-21 13:56] VITALS: BP 149/83; PULSE 95; TEMP 98.1
--- NOTE | 2020-09-21 15:43 | P.DS ---
Providers Date of admission: 09/19/20 09:50 Expected date of discharge: 09/21/20 Attending physician: Harley Lee Consults: 09/20/20 08:25 Consult Physician Routine Consulting Provider: Danielito Richards Consult Reason/Comments: chronic butt, that is leaking. UTI Do you want consulting provider notified?: Yes Primary care physician: Zita Barboza [facility] Course: Final diagnosis Confusion due to hypoglycemia. Improved to baseline now. Hypoglycemia due to insulin dose. Improved now. Acute urinary tract infection Diabetes type 2 insulin-dependent. Patient is on metformin, Levemir and insulin sliding scale at home. 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 Patient will continue with home care in the outpatient setting. Patient will follow-up with Dr. Barboza in the outpatient setting upon discharge. She will continue on oral antibiotics in the form of Levaquin 500 mg daily for the next 3 days to complete the course. Patient will also follow-up with urology in the outpatient setting and has monthly catheter changes. Total time taken is greater than 35 minutes. Hospital course This is a 65-year-old female who was recently admitted with hypoglycemia and acute urinary tract infection and was being closely monitored. Per family who cares for her patient was also having some increased periods of confusion and low blood sugars. Patient was transferred to the ER here [facility]. Patient does use insulin at home and no adjustments to medications have been made. Patient will continue on sliding scale along with long-acting 35 units at bed. Patient to continue monitoring Accu-Cheks before meals and at bedtime in keeping a diary for primary care follow-up. Patient was maintained on IV antibiotics and will continue with oral antibiotics in the form of Levaquin 500 mg daily for the next 3 days to complete the course. Patient seen and evaluated by urology recommending continued outpatient follow-up and patient does have urinary catheters replaced monthly. Currently no reports of chest pain, shortness of breath, or palpitations. Patient is afebrile. No reports of nausea or vomiting and patient is tolerating diet. Patient will be discharged home today. Guarded prognosis. On exam vital signs are stable. Temp is 98.1F, pulse is 95, respirations are 16, blood pressure is 149/83, oxygen saturation is 96% on 4 L via nasal cannula. Cardio S1, S2 are muffled. Respiratory system shows diminished breath sounds at the bases with no wheezing or rhonchi noted. Abdomen is soft and obese, and nontender. Nervous system shows diffuse weakness. Please refer to medication reconciliation sheet for a list of medications. Patient Condition at Discharge: Stable Plan - Discharge Summary Discharge Rx Participant: No New Discharge Prescriptions: New Levofloxacin [Levaquin] 500 mg PO DAILY 3 Days #3 tab Continue Atorvastatin Calcium [Lipitor] 20 mg PO DAILY [place]-3 Fatty Acids/Fish Oil [Fish Oil 1,000 mg Softgel] 1 cap PO DAILY Aspirin 81 mg PO DAILY PARoxetine HCL [Paxil] 20 mg PO DAILY Budesonide [Pulmicort] 0.5 mg INHALATION RT-BID Oxybutynin Xl [Ditropan XL] 5 mg PO DAILY Albuterol Nebulized [Ventolin Nebulized] 2.5 mg INHALATION RT-QID PRN PRN Reason: Shortness Of Breath metFORMIN HCL 1,000 mg PO BID Multivitamins, Thera [Multivitamin (formulary)] 1 tab PO DAILY L.acidoph,Paracasei, B.lactis [Probiotic] 1 cap PO DAILY Cholecalciferol [Vitamin D3 (25 Mcg = 1000 Iu)] 1,000 unit PO DAILY INSULIN ASPART (NovoLOG) [NovoLOG (formulary)] See Protocol SQ ACHS PRN PRN Reason: SUGAR OVER 150 Psyllium Husk (with Sugar) [Metamucil Powder] 1 tbsp PO DAILY Lactulose [Cephulac] 10 gm PO BID PRN PRN Reason: Constipation Imipramine [Tofranil] 25 mg PO BID #0 Changed Insulin Glargine,Hum.rec.anlog [Lantus Solostar] 35 unit SQ HS #0 Discharge Medication List Aspirin 81 mg PO DAILY 11/10/15 [History] Atorvastatin Calcium [Lipitor] 20 mg PO DAILY 11/10/15 [History] Budesonide [Pulmicort] 0.5 mg INHALATION RT-BID 11/10/15 [History] [place]-3 Fatty Acids/Fish Oil [Fish Oil 1,000 mg Softgel] 1 cap PO DAILY 11/10/15 [History] PARoxetine HCL [Paxil] 20 mg PO DAILY 11/10/15 [History] Albuterol Nebulized [Ventolin Nebulized] 2.5 mg INHALATION RT-QID PRN 11/11/15 [History] Oxybutynin Xl [Ditropan XL] 5 mg PO DAILY 11/11/15 [History] metFORMIN HCL 1,000 mg PO BID 10/08/19 [History] Cholecalciferol [Vitamin D3 (25 Mcg = 1000 Iu)] 1,000 unit PO DAILY 07/20/20 [History] INSULIN ASPART (NovoLOG) [NovoLOG (formulary)] See Protocol SQ ACHS PRN 07/20/20 [History] L.acidoph,Paracasei, B.lactis [Probiotic] 1 cap PO DAILY 07/20/20 [History] Lactulose [Cephulac] 10 gm PO BID PRN 07/20/20 [History] Multivitamins, Thera [Multivitamin (formulary)] 1 tab PO DAILY 07/20/20 [History] Psyllium Husk (with Sugar) [Metamucil Powder] 1 tbsp PO DAILY 07/20/20 [History] Imipramine [Tofranil] 25 mg PO BID #0 07/22/20 [Rx] Insulin Glargine,Hum.rec.anlog [Lantus Solostar] 35 unit SQ HS #0 09/21/20 [Rx] Levofloxacin [Levaquin] 500 mg PO DAILY 3 Days #3 tab 09/21/20 [Rx] Follow up Appointment(s)/Referral(s): [facility], [NON-STAFF] - 1-2 Days Zita Barboza MD [Primary Care Provider] - 09/26/20 3:40 pm Patient Instructions/Handouts: Urinary Tract Infection in Women (GEN) Activity/Diet/Wound Care/Special Instructions: Activity Limited until follow-up Follow up primary care provider upon discharge Continue current diet Continue with antibiotics for the next 3 days to complete the course Follow-up with urology outpatient and continue with monthly Butt catheter changes Continue to monitor blood sugar before meals and at bedtime and keep a diary for primary care follow-up Continue with sliding scale along with 35 units of long-acting at bed Discharge Disposition: HOME WITH HOME HEALTH SERVICES
== END 2020-09-21 14:31 | disposition home health service (06) ==
LOC: EC 09:12 → 5NMEDONC 09:50
PROVIDERS: ADMIT Hospitalist; ATTEND Hospitalist
DX: E11.649 Type 2 diabetes mellitus with hypoglycemia without coma (principal); E11.40 Type 2 diabetes mellitus with diabetic neuropathy, unspecified; G35 Multiple sclerosis; Z93.3 Colostomy status; J45.909 Unspecified asthma, uncomplicated; I25.10 Atherosclerotic heart disease of native coronary artery without angina pectoris; E66.01 Morbid (severe) obesity due to excess calories; Z68.35 Body mass index [BMI] 35.0-35.9, adult; Z87.19 Personal history of other diseases of the digestive system; E78.5 Hyperlipidemia, unspecified; I10 Essential (primary) hypertension; E11.42 Type 2 diabetes mellitus with diabetic polyneuropathy; N28.9 Disorder of kidney and ureter, unspecified; G47.33 Obstructive sleep apnea (adult) (pediatric); Z99.89 Dependence on other enabling machines and devices; J96.10 Chronic respiratory failure, unspecified whether with hypoxia or hypercapnia; Z99.81 Dependence on supplemental oxygen; G23.8 Other specified degenerative diseases of basal ganglia; Z79.4 Long term (current) use of insulin; Z79.51 Long term (current) use of inhaled steroids; Z79.899 Other long term (current) drug therapy; D86.9 Sarcoidosis, unspecified; I35.0 Nonrheumatic aortic (valve) stenosis; R01.1 Cardiac murmur, unspecified; R32 Unspecified urinary incontinence; N31.9 Neuromuscular dysfunction of bladder, unspecified; Z86.19 Personal history of other infectious and parasitic diseases; D64.9 Anemia, unspecified; R26.9 Unspecified abnormalities of gait and mobility; N13.30 Unspecified hydronephrosis; Z86.14 Personal history of Methicillin resistant Staphylococcus aureus infection; Z98.51 Tubal ligation status; Z90.49 Acquired absence of other specified parts of digestive tract; Z98.890 Other specified postprocedural states; F41.9 Anxiety disorder, unspecified; F32.9 Major depressive disorder, single episode, unspecified; Z80.0 Family history of malignant neoplasm of digestive organs; Z83.3 Family history of diabetes mellitus; Z82.49 Family history of ischemic heart disease and other diseases of the circulatory system
CPT/HCPCS: 96366 ×2; 96367; 96372 ×3; 96365; 99285; 36415; 94640; 94760; 80053; 80048; 83735; 85025 ×2; 85610; 81001; 87086; 87077; 87186; G0378 ×3; J1644 ×3; J0696 ×2

== ENCOUNTER 2021-03-30 06:33 | Day surgery (SDC) | payer MEDICARE ==
[2021-03-29 08:47] VITALS: BMI 36.6
[2021-03-30 08:05] VITALS: TEMP 97.9
[2021-03-30 08:07] LABS: Glucose,Whole Blood 154 mg/dL (75-99)
[2021-03-30] MEDS ORDERED: SODIUM CHLORIDE 0.9% 500 ML 500 ML IV ONE (08:09)
[2021-03-30] MEDS ORDERED: fentaNYL (PF) 50 MCG/ML 2 ML AMP ONE (09:19)
[2021-03-30] MEDS: BENZOCAINE SPRAY 1 CAN MUCOUS MEM ONE ×2 (09:30→09:33)
[2021-03-30] MEDS: MIDAZOLAM 2 MG/2 ML VIAL IVP ONE ×2 (09:33→09:34)
[2021-03-30] MEDS ORDERED: fentaNYL (PF) 50 MCG/ML 2 ML AMP IVP ONE (09:33)
[2021-03-30] MEDS ORDERED: FLUMAZENIL 0.1 MG/ML 5 ML VIAL IVP ONE ×2 (09:39→09:41)
--- NOTE | 2021-03-30 11:17 | ECHOT ---
TRANSESOPHAGEAL ECHOCARDIOGRAM INDICATION: Aortic stenosis. PROCEDURE NOTE: After obtaining informed consent, transesophageal echocardiogram is performed in left lateral position using an Omni plane probe. Local and IV sedation were obtained using 2 mg of Versed and 50 mcg of fentanyl. The patient became deeply sedated and became hypoxic and we had to reverse the Versed at the end of the procedure. Other than that, the patient tolerated the procedure well. FINDINGS: 1. Aortic valve is a bicuspid valve that shows severe restriction in leaflet mobility with a valve area of around 0.5 squared cm. 2. Left atrium appears mildly enlarged. 3. Right atrium and right ventricle appear normal limits. 4. Left ventricle has normal size and systolic function. 5. Aorta shows mild atherosclerotic changes. 6. Interatrial septum: I do not see any [id number] shunt and we could not perform an agitated saline contrast study as this study had to be terminated abruptly because of hypoxia. The patient underwent color Doppler, 2D and spectral analysis on this study. CONCLUSIONS: Severe aortic stenosis involving a bicuspid aortic valve. PLAN: I spoke to family about treatment options. They are going to think it over and if they are interested in proceeding with TAVR, I will perform cardiac catheterization and refer him to my structural Heart Disease colleagues. MMODL / IJN: [id number] /
[2021-03-30 11:48] VITALS: BP 130/57; PULSE 90; RESP 18
== END 2021-03-30 11:25 | disposition home or self-care (01) ==
LOC: CATHCVL 06:33
PROVIDERS: ATTEND Internal Medicine Cardiovascular Disease
DX: I35.0 Nonrheumatic aortic (valve) stenosis (principal); I10 Essential (primary) hypertension; E11.9 Type 2 diabetes mellitus without complications; J44.9 Chronic obstructive pulmonary disease, unspecified; Z79.82 Long term (current) use of aspirin; Z79.4 Long term (current) use of insulin; Z79.899 Other long term (current) drug therapy
CPT/HCPCS: 93312; 93320; 93325; J2250; J3010

== ENCOUNTER → 2021-04-30 | Day surgery (SDC) | payer MEDICARE ==
[2021-04-25 14:11] VITALS: BMI 36.6
[~2021-04-30] MED LIST: ALPRAZolam 0.25 MG TAB PO PRN; ALPRAZolam 0.5 MG TAB PO PRN; ASPIRIN 325 MG TAB PO ONE; HEPARIN SODIUM,PORCINE 10,000 UNIT in SODIUM CHLORIDE 0.9% 1,000 ML IRRIGATION PRN; HEPARIN SODIUM,PORCINE 2,500 UNIT in SODIUM CHLORIDE 0.9% 250 ML IRRIGATION PRN; IOPAMIDOL-370 125ML BTL INJ ONE; IOPAMIDOL-370 50ML BTL INJ ONE; LIDOCAINE 1% INJ 10MG/ML (20 ML MDV) ONE; LIDOCAINE 1% INJ 10MG/ML (20 ML MDV) SQ ONE; MIDAZOLAM 2 MG/2 ML VIAL IV ONE; NITROGLYCERIN SL TABS 0.4 MG TAB SUBLINGUAL PRN; RX INFO: IV CONTRAST WAS GIVEN 1 EACH MISC MISCELLANE PRN; SODIUM CHLORIDE 0.9% 1,000 ML IV ONE; SODIUM CHLORIDE 0.9% 1,000 ML IV SCH; SODIUM CHLORIDE 0.9% 1,000 ML in EMPTY BAG 1 BAG IV ONE; fentaNYL (PF) 50 MCG/ML 2 ML AMP IV ONE; fentaNYL (PF) 50 MCG/ML 2 ML AMP ONE
[2021-04-30 08:01] LABS: Glucose,Whole Blood 187 mg/dL (75-99)
[2021-04-30 08:13] VITALS: TEMP 98.7
--- NOTE | 2021-04-30 10:51 | CC ---
CARDIAC CATHETERIZATION REPORT INDICATION: Severe aortic stenosis. PROCEDURE NOTE: After obtaining informed consent, left heart catheterization, coronary angiogram and aortogram were performed via the right femoral artery using standard Saravanan catheters. Patient tolerated the procedure well without any obvious immediate complications. A femoral angiogram was obtained and Angio-Seal was deployed for hemostasis. Patient received moderate conscious sedation. Total sedation time was 35 minutes. FINDINGS: HEMODYNAMICS: Central aortic pressure is 128/70 mm. LEFT VENTRICULOGRAM: Left ventriculogram is not performed. AORTOGRAM: Aortogram was performed to rule out ascending aortic aneurysm in a patient with severe aortic stenosis, and we did not find any aortic aneurysm or significant aortic regurgitation. ANGIOGRAPHIC DATA: LEFT MAIN CORONARY ARTERY: Left main coronary artery is a normal-sized vessel and is free of stenosis. Divides into left anterior descending coronary artery and circumflex coronary artery. LAD and its branches, circumflex coronary artery and its branches are free of significant stenosis. RIGHT CORONARY ARTERY: Right coronary artery, after multiple attempts, could only be visualized subselectively. It is a large dominant vessel and is free of significant stenosis. CONCLUSIONS: 1. Severe aortic stenosis by transesophageal echo. 2. Normal ascending aorta. 3. Normal coronary arteries. PLAN: The patient has severe underlying lung disease and I am referring her for a TAVR to the TAVR clinic. MMODL / IJN: [id number] /
--- NOTE | 2021-04-30 10:55 | LTR ---
April 30, 2021 To: Dr. Zita Barboza Re: Dede Freeman (59) Dear Zita, I performed left heart catheterization on Dede Moore. Detailed catheterization note is enclosed for your records. In brief, her cardiac catheterization revealed normal coronary arteries. As per her and her family wishes, I am going to refer her to the TAVR clinic for evaluation and performance of the TAVR. Thank you for giving me the privilege of participating in the care of this pleasant lady. Sincerely, Gamaliel Valero M.D. DAYLIN / SHAY: [id number] /
[2021-04-30 13:14] VITALS: RESP 18
[2021-04-30 13:20] VITALS: BP 139/63; PULSE 92
[2021-04-30 16:39] LABS: Glucose,Whole Blood 235 mg/dL (75-99)
--- NOTE | 2021-04-30 18:09 | P.GSCN ---
History of Present Illness Consult date: 04/30/21 Reason for Consult: Severe aortic valve stenosis, evaluation for TAVR. Requesting physician: Gamaliel Valero History of present illness: This is a 65-year-old female patient who follows with Dr. Zita Barboza on an outpatient basis for her primary care service. She also follows with Dr. Gamaliel Valero for her cardiology care. 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 According to the patient's she also has a history of syncope with previous CPR performed by her son and EMS in June or July of 2020. Recently, the patient has had complaints of progressive shortness of breath and due to her complaints and known history of aortic valve stenosis underwent a transesophageal echocardiogram on 03/30/2021 which demonstrated an aortic valve that is bicuspid with severe restriction in the leaflet mobility with a valve area around 0.5 cm, a mildly enlarged left atrium, and a normal left ventricular size and systolic function. For further evaluation the patient underwent a cardiac catheterization today performed by Dr. Valero which showed severe aortic valve stenosis with nonobstructive coronary arteries. The patient denies any recent fever, chills, nausea, vomiting, diarrhea, chest pain or pressure, presyncope or syncope. Subsequently, due to the patient's above- mentioned symptoms, and findings on the transesophageal echocardiogram a consult was placed to Dr. Beatrice Burleson for further evaluation and treatment recommendations including TAVR. Review of Systems A 14 point review of systems was completed was negative except as mentioned in the HPI. Past Medical History Past Medical History: Asthma, Diabetes Mellitus, GI Bleed, Hyperlipidemia, Hypertension, Memory Impairment, Neurologic Disorder (olivpontinecerebellar degeneration with right-sided weakness, multiple sclerosis), Renal Disease, Respiratory Disorder, Sleep Apnea/CPAP/BIPAP Additional Past Medical History / Comment(s): Chronic respiratory failure with home oxygen use at 3L/NC ATC, morbid obesity, 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,wheel chair depenedent, IDDM type II, neuropathy R leg, sarcoidosis/lungs, bronchitis, aortic stenosis/murmur, past chronic constipation, colostomy, occasional incontinence of stool, lower GI bleed, chronic urinary incontinence/neurogenic bladder/chronic Humphrey/frequent urinary tract infections/sepsis, anemia, gait dysfunction-pt is lifted to electric w/c, obstructive sleep apnea with Cpap use, chronic hydronephrosis of the kidneys, colostomy History of Any Multi-Drug Resistant Organisms: C-DIFF, 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 MDRO Source:: c-diff, mrsa 2010 in blood Past Surgical History: Bowel Resection, Tubal Ligation Additional Past Surgical History / Comment(s): 2015 sigmoid volvulus with bowel resection/colostomy, EGD, colonoscopies, bronchoscopies x3, carpal tunnel release-laterallity unknown, D&C, Past Anesthesia/Blood Transfusion Reactions: No Reported Reaction Past Psychological History: Depression Smoking Status: Never smoker Past Alcohol Use History: None Reported Past Drug Use History: None Reported - Past Family History Father Family Medical History: Cancer Additional Family Medical History / Comment(s): from pancreatic cancer Mother Family Medical History: Congestive Heart Failure (CHF), Diabetes Mellitus, Dialysis Additional Family Medical History / Comment(s): from CHF Medications and Allergies Home Medications Medication Instructions Recorded Confirmed Type Aspirin 81 mg PO DAILY 11/10/15 04/30/21 History Atorvastatin Calcium [Lipitor] 20 mg PO DAILY 11/10/15 04/30/21 History Budesonide [Pulmicort] 0.5 mg INHALATION RT-BID 11/10/15 04/30/21 History [place]-3 Fatty Acids/Fish Oil [Fish 1 cap PO DAILY 11/10/15 04/30/21 History Oil 1,000 mg Softgel] Albuterol Nebulized [Ventolin 2.5 mg INHALATION RT-QID PRN 11/11/15 04/30/21 History Nebulized] Oxybutynin Xl [Ditropan XL] 5 mg PO DAILY 11/11/15 04/30/21 History metFORMIN HCL [Glucophage] 1,000 mg PO BID 10/08/19 04/30/21 History Cholecalciferol [Vitamin D3 (25 1,000 unit PO DAILY 07/20/20 04/30/21 History Mcg = 1000 Iu)] INSULIN ASPART (NovoLOG) [NovoLOG See Protocol SQ ACHS PRN 07/20/20 04/30/21 History (formulary)] L.acidoph,Paracasei, B.lactis 1 cap PO DAILY 07/20/20 04/30/21 History [Probiotic] Lactulose [Cephulac] 10 gm PO BID PRN 07/20/20 04/30/21 History Multivitamins, Thera [Multivitamin 1 tab PO DAILY 07/20/20 04/30/21 History (formulary)] Psyllium Husk (with Sugar) 1 tbsp PO DAILY 07/20/20 04/30/21 History [Metamucil Powder] Imipramine [Tofranil] 25 mg PO BID #0 07/22/20 04/30/21 Rx Insulin Glargine,Hum.rec.anlog 35 unit SQ HS #0 09/21/20 04/30/21 Rx [Lantus Solostar Pen] Magnesium Citrate 296 ml PO DAILY PRN 04/25/21 04/30/21 History Oxybutynin Chloride [Ditropan] 5 mg PO DAILY 04/25/21 04/30/21 History PARoxetine [Paxil] 20 mg PO DAILY 04/25/21 04/30/21 History Allergies Allergy/AdvReac Type Severity Reaction Status Date / Time No Known Allergies Allergy Verified 04/25/21 14:01 Surgical - Exam Vital Signs Temp Pulse Resp BP Pulse Ox 98.7 F 95 18 155/78 100 04/30/21 08:08 04/30/21 08:08 04/30/21 08:08 04/30/21 08:08 04/30/21 08:08 - General Morbidly obese well nourished, no distress, no pain, chronically ill - Eyes PERRL, normal ocular movement, no icteric - ENT edentulous normal pinna, normal nares, normal mucosa, no hearing loss, no congestion - Neck Neck is supple, no lymphadenopathy. no masses, no bruits, trachea midline, no venous distension - Respiratory Lungs sounds essentially clear throughout, diminished her bilateral bases with few scattered crackles. Respirations are symmetrical and nonlabored. Oxygen saturation is 99% on 3 L nasal cannula. - Cardiovascular Regular rhythm and rate. S1 and S2 present, negative for S3, gallop or murmur. No edema present. - Abdomen Abdomen is soft, nontender and nondistended. Obese. No guarding or rigidity. Left lower quadrant colostomy with pink stoma. Active bowel sounds. - Genitourinary Humphrey catheter in place with clear yellow urine. - Rectum Deferred - Integumentary no rash, no growths, no abnormal pigmentation - Neurologic Memory impairment, paralysis of her right lower extremity. - Musculoskeletal Moves her bilateral upper extremities with equal strength. - Psychiatric oriented to person, oriented to place, no memory intact (states the year is 1921) Results - Labs Abnormal Lab Results - Last 24 Hours (Table) 04/30/21 Range/Units 07:53 POC Glucose (mg/dL) 187 H (75-99) mg/dL - Imaging Additional studies: Cardiac cath and MURIEL results reviewed by Dr Burleson. Assessment and Plan Assessment: 1. Severe bicuspid aortic valve stenosis with a valve area of 0.5 cm 2. Hypertension 3. Hyperlipidemia 4. Insulin dependent diabetes mellitus type 2 5. Chronic hypoxic respiratory failure on 3 L nasal cannula oxygen at home 6. Morbid obesity with a BMI of 36.7 kg/m 7. 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 Obstructive sleep apnea with home CPAP use 9. History of sarcoidosis 10. Memory impairment 11. Chronic urinary incontinence with chronic Humphrey catheter with frequent urinary tract infections 12. Multiple sclerosis 13. 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 Diabetic neuropathy 15. Poor overall functional performance based on the above-mentioned multiple comorbidities Plan: The patient was seen and examined at her bedside in the extended stay unit by Dr. Beatrice Burleson. Her chart and diagnostics were reviewed. Dr. Burleson discussed the findings on the transesophageal echocardiogram and cardiac catheterization with the patient, the patient's and her daughters present at her bedside. TAVR procedure was discussed with the patient and family, risks and benefits were discussed. The patient and family are wishing to have further discussions with Dr. Valero in regards to whether to proceed with the TAVR procedure or continue with medical management. The patient wishes to follow up as scheduled with Dr. Valero on 05/08/2021 and then make some decisions whether to proceed with workup for TAVR. More recommendations to follow based on patient's clinical course and decisions whether to proceed with TAVR workup. If the patient wishes to proceed with TAVR, she will be seen in the valve clinic, and preoperative testing will be scheduled. Thank you Dr. Valero for this consult and we will look for to working with you in the care of this patient. Time with Patient: Greater than 30
== END ==
LOC: CATHCVL 07:21
PROVIDERS: ATTEND Internal Medicine Cardiovascular Disease
DX: I35.0 Nonrheumatic aortic (valve) stenosis (principal); I10 Essential (primary) hypertension; Z79.899 Other long term (current) drug therapy; Z79.4 Long term (current) use of insulin; E78.5 Hyperlipidemia, unspecified; J96.11 Chronic respiratory failure with hypoxia; G47.33 Obstructive sleep apnea (adult) (pediatric); Z99.81 Dependence on supplemental oxygen; J44.9 Chronic obstructive pulmonary disease, unspecified; E66.01 Morbid (severe) obesity due to excess calories; Z68.37 Body mass index [BMI] 37.0-37.9, adult; G31.9 Degenerative disease of nervous system, unspecified; E11.40 Type 2 diabetes mellitus with diabetic neuropathy, unspecified; R53.1 Weakness; Z87.440 Personal history of urinary (tract) infections; G35 Multiple sclerosis; F32.9 Major depressive disorder, single episode, unspecified; D64.9 Anemia, unspecified; N13.30 Unspecified hydronephrosis; Z99.3 Dependence on wheelchair; D86.0 Sarcoidosis of lung; R32 Unspecified urinary incontinence; R15.9 Full incontinence of feces
CPT/HCPCS: 93454; 93567; C1769 ×4; C1760; C1894; J2250; J2001; J3010; Q9967 ×2

== ENCOUNTER 2021-12-24 12:40 | Inpatient (IN) | payer MEDICARE ==
[2021-12-24] MEDS ORDERED: IPRATROPIUM-ALBUTEROL 3 ML NEB INHALATION STA (13:10)
--- NOTE | 2021-12-24 13:14 | ED ---
General Adult HPI - General Chief complaint: Shortness of Breath Stated complaint: CHEKO Time Seen by Provider: 12/24/21 12:49 Source: patient, RN notes reviewed Mode of arrival: ambulatory Limitations: no limitations - History of Present Illness Initial comments: Patient is a pleasant 66-year-old female presenting to the emergency department with concerns with difficulty in breathing. Patient has neurological disease and history comes from family. Onset of symptoms was yesterday. Mild cough. No fevers. Patient does have history of COPD. - Related Data Home Medications Medication Instructions Recorded Confirmed Aspirin 81 mg PO DAILY 11/10/15 04/30/21 Atorvastatin Calcium [Lipitor] 20 mg PO DAILY 11/10/15 04/30/21 Budesonide [Pulmicort] 0.5 mg INHALATION RT-BID 11/10/15 04/30/21 [place]-3 Fatty Acids/Fish Oil [Fish 1 cap PO DAILY 11/10/15 04/30/21 Oil 1,000 mg Softgel] Albuterol Nebulized [Ventolin 2.5 mg INHALATION RT-QID PRN 11/11/15 04/30/21 Nebulized] Oxybutynin Xl [Ditropan XL] 5 mg PO DAILY 11/11/15 04/30/21 metFORMIN HCL [Glucophage] 1,000 mg PO BID 10/08/19 04/30/21 Cholecalciferol [Vitamin D3 (25 1,000 unit PO DAILY 07/20/20 04/30/21 Mcg = 1000 Iu)] INSULIN ASPART (NovoLOG) [NovoLOG See Protocol SQ ACHS PRN 07/20/20 04/30/21 (formulary)] L.acidoph,Paracasei, B.lactis 1 cap PO DAILY 07/20/20 04/30/21 [Probiotic] Lactulose [Cephulac] 10 gm PO BID PRN 07/20/20 04/30/21 Multivitamins, Thera [Multivitamin 1 tab PO DAILY 07/20/20 04/30/21 (formulary)] Psyllium Husk (with Sugar) 1 tbsp PO DAILY 07/20/20 04/30/21 [Metamucil Powder] Magnesium Citrate 296 ml PO DAILY PRN 04/25/21 04/30/21 Oxybutynin Chloride [Ditropan] 5 mg PO DAILY 04/25/21 04/30/21 PARoxetine [Paxil] 20 mg PO DAILY 04/25/21 04/30/21 Previous Rx's Medication Instructions Recorded Imipramine [Tofranil] 25 mg PO BID #0 07/22/20 Insulin Glargine,Hum.rec.anlog 35 unit SQ HS #0 09/21/20 [Lantus Solostar Pen] Allergies Allergy/AdvReac Type Severity Reaction Status Date / Time No Known Allergies Allergy Verified 12/24/21 12:48 Review of Systems ROS Statement: Those systems with pertinent positive or pertinent negative responses have been documented in the HPI. ROS Other: All systems not noted in ROS Statement are negative. Constitutional: Denies: fever Respiratory: Reports: as per HPI, cough, dyspnea Gastrointestinal: Denies: vomiting 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,wheel chair depenedent, IDDM type II, neuropathy R leg, sarcoidosis/lungs, bronchitis, aortic stenosis/murmur, past chronic constipation, colostomy, occasional incontinence of stool, lower GI bleed, chronic urinary incontinence/neurogenic bladder/chronic Humphrey/frequent urinary tract infections/sepsis, anemia, gait dysfunction-pt is lifted to electric w/c, obstructive sleep apnea with Cpap use, chronic hydronephrosis of the kidneys, colostomy History of Any Multi-Drug Resistant Organisms: C-DIFF, MRSA Date of last positivie culture/infection: 11/2015 MDRO Source:: c-diff, mrsa 2010 in blood Past Surgical History: Bowel Resection, Tubal Ligation Additional Past Surgical History / Comment(s): 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, EGD, colonoscopies, bronchoscopies x3, carpal tunnel release-laterallity unknown, D&C, Past Anesthesia/Blood Transfusion Reactions: No Reported Reaction Past Psychological History: Depression Smoking Status: Never smoker Past Alcohol Use History: None Reported Past Drug Use History: None Reported - Past Family History Father Family Medical History: Cancer Additional Family Medical History / Comment(s): from pancreatic cancer Mother Family Medical History: Congestive Heart Failure (CHF), Diabetes Mellitus, Dialysis Additional Family Medical History / Comment(s): from CHF General Exam Limitations: no limitations General appearance: alert Head exam: Present: normocephalic Eye exam: Present: normal appearance ENT exam: Present: mucous membranes dry Neck exam: Present: normal inspection Respiratory exam: Present: wheezes Cardiovascular Exam: Present: regular rate, normal rhythm GI/Abdominal exam: Present: soft. Absent: tenderness Extremities exam: Present: normal inspection Neurological exam: Present: alert, other (Limited verbal capability. Leg weakness.) Psychiatric exam: Present: normal affect, normal mood Skin exam: Present: normal color Course Vital Signs 12/24/21 12:45 Temperature 98.5 F Pulse Rate 91 Respiratory 24 Rate Blood Pressure 141/74 O2 Sat by Pulse 98 Oximetry - Reevaluation(s) Reevaluation #1: 12/24/21 14:[address] Wise, who will admit for hospital observation. Chart review reveals history of severe aortic stenosis. Patient can benefit from cardiac evaluation EKG Findings - EKG Comments: EKG Findings:: Normal sinus rhythm rate 91. [place] 169. QRS 100. QT 383. QTC 431. Normal axis. Normal QRS. Nonspecific ST-T. Medical Decision Making - Medical Decision Making Patient reevaluated with some improvement. Patient family updated on results and plan. - Lab Data Result diagrams: 12/24/21 13:25 12/24/21 13:25 Lab Results 12/24/21 12/24/21 12/24/21 Range/Units 13:25 13:25 13:25 WBC 9.7 (3.8-10.6) k/uL RBC 4.02 (3.80-5.40) m/uL Hgb 11.7 (11.4-16.0) gm/dL Hct 38.4 (34.0-46.0) % MCV 95.5 (80.0-100.0) fL MCH 29.0 (25.0-35.0) pg MCHC 30.4 L (31.0-37.0) g/dL RDW 14.6 (11.5-15.5) % Plt Count 223 (150-450) k/uL MPV 8.6 Neutrophils % 81 % Lymphocytes % 10 % Monocytes % 5 % Eosinophils % 3 % Basophils % 0 % Neutrophils # 7.8 H (1.3-7.7) k/uL Lymphocytes # 0.9 L (1.0-4.8) k/uL Monocytes # 0.5 (0-1.0) k/uL Eosinophils # 0.3 (0-0.7) k/uL Basophils # 0.0 (0-0.2) k/uL Hypochromasia Slight PT 10.1 (9.0-12.0) sec INR 0.9 (<1.2) APTT 29.4 (22.0-30.0) sec Sodium 137 (137-145) mmol/L Potassium 4.8 (3.5-5.1) mmol/L Chloride 96 L (98-107) mmol/L Carbon Dioxide 34 H (22-30) mmol/L Anion Gap 7 mmol/L BUN 11 (7-17) mg/dL Creatinine 0.63 (0.52-1.04) mg/dL Est GFR (CKD-EPI)AfAm >90 (>60 ml/min/1.73 sqM) Est GFR (CKD-EPI)NonAf >90 (>60 ml/min/1.73 sqM) Glucose 174 H (74-99) mg/dL Plasma Lactic Acid George (0.7-2.0) mmol/L Calcium 8.8 (8.4-10.2) mg/dL Total Bilirubin 0.7 (0.2-1.3) mg/dL AST 32 (14-36) U/L ALT 22 (4-34) U/L Alkaline Phosphatase 80 (38-126) U/L Troponin I (0.000-0.034) ng/mL NT-Pro-B Natriuret Pep pg/mL Total Protein 7.4 (6.3-8.2) g/dL Albumin 3.7 (3.5-5.0) g/dL 12/24/21 12/24/21 12/24/21 Range/Units 13:25 13:25 13:25 WBC (3.8-10.6) k/uL RBC (3.80-5.40) m/uL Hgb (11.4-16.0) gm/dL Hct (34.0-46.0) % MCV (80.0-100.0) fL MCH (25.0-35.0) pg MCHC (31.0-37.0) g/dL RDW (11.5-15.5) % Plt Count (150-450) k/uL MPV Neutrophils % % Lymphocytes % % Monocytes % % Eosinophils % % Basophils % % Neutrophils # (1.3-7.7) k/uL Lymphocytes # (1.0-4.8) k/uL Monocytes # (0-1.0) k/uL Eosinophils # (0-0.7) k/uL Basophils # (0-0.2) k/uL Hypochromasia PT (9.0-12.0) sec INR (<1.2) APTT (22.0-30.0) sec Sodium (137-145) mmol/L Potassium (3.5-5.1) mmol/L Chloride (98-107) mmol/L Carbon Dioxide (22-30) mmol/L Anion Gap mmol/L BUN (7-17) mg/dL Creatinine (0.52-1.04) mg/dL Est GFR (CKD-EPI)AfAm (>60 ml/min/1.73 sqM) Est GFR (CKD-EPI)NonAf (>60 ml/min/1.73 sqM) Glucose (74-99) mg/dL Plasma Lactic Acid George 1.3 (0.7-2.0) mmol/L Calcium (8.4-10.2) mg/dL Total Bilirubin (0.2-1.3) mg/dL AST (14-36) U/L ALT (4-34) U/L Alkaline Phosphatase (38-126) U/L Troponin I <0.012 (0.000-0.034) ng/mL NT-Pro-B Natriuret Pep 659 pg/mL Total Protein (6.3-8.2) g/dL Albumin (3.5-5.0) g/dL - Radiology Data Radiology results: image reviewed (Chest x-ray: Correlate for CHF) Disposition Clinical Impression: Chronic obstructive pulmonary disease, CHF (congestive heart failure) Disposition: ADMITTED IP TO THIS HOSP Is patient prescribed a controlled substance at d/c from ED?: No Referrals: Zita Barboza MD [Primary Care Provider] - 1-2 days Time of Disposition: 14:50
[2021-12-24 13:41] LABS: Basophils % (A) 0 %; Eosinophils # (A) 0.3 k/uL (0-0.7); Eosinophils % (A) 3 %; HCT 38.4 % (34.0-46.0); HGB 11.7 gm/dL (11.4-16.0); Hypochromasia Slight; Lymphocytes # (A) 0.9 k/uL (1.0-4.8); Lymphocytes % (A) 10 %; MCHC 30.4 g/dL (31.0-37.0); MCV 95.5 fL (80.0-100.0); Mean Platelet Volume 8.6; Monocytes # (A) 0.5 k/uL (0-1.0); Monocytes % (A) 5 %; Neutrophils # (A) 7.8 k/uL (1.3-7.7); Neutrophils % (A) 81 %; Platelet Count 223 k/uL (150-450); RBC 4.02 m/uL (3.80-5.40); RDW 14.6 % (11.5-15.5); WBC 9.7 k/uL (3.8-10.6)
--- NOTE | 2021-12-24 13:43 | XR ---
EXAMINATION TYPE: XR chest 2V DATE OF EXAM: 12/24/2021 COMPARISON: X-ray dated 06/15/2020 HISTORY: Difficulty breathing TECHNIQUE: Frontal and lateral views of the chest are obtained. FINDINGS: Congested bilateral pulmonary vasculature with prominent interstitial lung markings and questionable subtle opacity in the right midlung zone. Associated increased cardiac transverse diameter. Please co rrelate clinically for pulmonary edema/CHF. Increased density of the lower lung zones more on the right side which could be due to technical fact or or the overlying chest wall soft tissue however underlying pulmonary infiltration cannot be exclud ed. Follow-up to resolution is advised. Suspected small pleural effusions. No definite pneumothorax. Degenerative changes of the thoracic spi ne. IMPRESSION: Please correlate for pulmonary edema/CHF as described above. Subtle pulmonary infiltration cannot be excluded. Follow-up x-ray is suggested.
[2021-12-24 13:47] LABS: ALT 22 U/L (4-34); African American GFR (CKD) >90 (>60 ml/min/1.73 sqM); Albumin 3.7 g/dL (3.5-5.0); Anion Gap 7 mmol/L; Blood Urea Nitrogen 11 mg/dL (7-17); Calcium 8.8 mg/dL (8.4-10.2); Carbon Dioxide 34 mmol/L (22-30); Chloride 96 mmol/L (98-107); Glucose 174 mg/dL (74-99); Non-African American GFR(CKD) >90 (>60 ml/min/1.73 sqM); Sodium 137 mmol/L (137-145); Total Bilirubin 0.7 mg/dL (0.2-1.3); Total Protein 7.4 g/dL (6.3-8.2)
[2021-12-24 13:50] LABS: AST 32 U/L (14-36); Alkaline Phosphatase 80 U/L (38-126); INR 0.9 (<1.2); Partial Thromboplastin Time 29.4 sec (22.0-30.0); Potassium 4.8 mmol/L (3.5-5.1); Prothrombin Time 10.1 sec (9.0-12.0)
[2021-12-24] MEDS ORDERED: IPRATROPIUM-ALBUTEROL 3 ML NEB INHALATION PRN (14:50)
[2021-12-24] MEDS ORDERED: ASPIRIN 325 MG TAB PO STA (14:50)
[2021-12-24] MEDS ORDERED: FUROSEMIDE 10 MG/ML 4 ML VIAL IV SCH (15:00)
[2021-12-24] MEDS ORDERED: IPRATROPIUM-ALBUTEROL 3 ML NEB INHALATION SCH (16:00)
--- NOTE | 2021-12-24 16:00 | P.HPIM ---
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 Patient does use 3 L at home and also been complaining of mild phlegm production which is very minimal and clear. She denies any episodes of fever, chills, nausea or vomiting. Family is present at bedside and was able to provide some additional information. Patient does complain of mild urinary symptoms including including dysuria, urgency, frequency. At bedside Humphrey catheter was examined showing some sediment. Vital signs reviewed afebrile, normotensive and saturating 99% on 3 L. CBC reviewed no leukocytosis, H&H stable. Chest x-ray reviewed showing possible pulmonary edema/CHF subtle pulmonary infiltrates cannot be excluded. 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,wheel chair depenedent, IDDM type II, neuropathy R leg, sarcoidosis/lungs, bronchitis, aortic stenosis/murmur, past chronic constipation, colostomy, occasional incontinence of stool, lower GI bleed, chronic urinary incontinence/neurogenic bladder/chronic Humphrey/frequent urinary tract infections/sepsis, anemia, gait dysfunction-pt is lifted to electric w/c, obstructive sleep apnea with Cpap use, chronic hydronephrosis of the kidneys, colostomy History of Any Multi-Drug Resistant Organisms: C-DIFF, MRSA Date of last positivie culture/infection: 11/2015 MDRO Source:: c-diff, mrsa 2010 in blood Past Surgical History: Bowel Resection, Tubal Ligation Additional Past Surgical History / Comment(s): 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, EGD, colonoscopies, bronchoscopies x3, carpal tunnel release-laterallity unknown, D&C, Past Anesthesia/Blood Transfusion Reactions: No Reported Reaction Past Psychological History: Depression Smoking Status: Never smoker Past Alcohol Use History: None Reported Past Drug Use History: None Reported - Past Family History Father Family Medical History: Cancer Additional Family Medical History / Comment(s): from pancreatic cancer Mother Family Medical History: Congestive Heart Failure (CHF), Diabetes Mellitus, Dialysis Additional Family Medical History / Comment(s): from CHF Medications and Allergies Home Medications Medication Instructions Recorded Confirmed Type Aspirin 81 mg PO DAILY 11/10/15 04/30/21 History Atorvastatin Calcium [Lipitor] 20 mg PO DAILY 11/10/15 04/30/21 History Budesonide [Pulmicort] 0.5 mg INHALATION RT-BID 11/10/15 04/30/21 History [place]-3 Fatty Acids/Fish Oil [Fish 1 cap PO DAILY 11/10/15 04/30/21 History Oil 1,000 mg Softgel] Albuterol Nebulized [Ventolin 2.5 mg INHALATION RT-QID PRN 11/11/15 04/30/21 History Nebulized] Oxybutynin Xl [Ditropan XL] 5 mg PO DAILY 11/11/15 04/30/21 History metFORMIN HCL [Glucophage] 1,000 mg PO BID 10/08/19 04/30/21 History Cholecalciferol [Vitamin D3 (25 1,000 unit PO DAILY 07/20/20 04/30/21 History Mcg = 1000 Iu)] INSULIN ASPART (NovoLOG) [NovoLOG See Protocol SQ ACHS PRN 07/20/20 04/30/21 History (formulary)] L.acidoph,Paracasei, B.lactis 1 cap PO DAILY 07/20/20 04/30/21 History [Probiotic] Lactulose [Cephulac] 10 gm PO BID PRN 07/20/20 04/30/21 History Multivitamins, Thera [Multivitamin 1 tab PO DAILY 07/20/20 04/30/21 History (formulary)] Psyllium Husk (with Sugar) 1 tbsp PO DAILY 07/20/20 04/30/21 History [Metamucil Powder] Imipramine [Tofranil] 25 mg PO BID #0 07/22/20 04/30/21 Rx Insulin Glargine,Hum.rec.anlog 35 unit SQ HS #0 09/21/20 04/30/21 Rx [Lantus Solostar Pen] Magnesium Citrate 296 ml PO DAILY PRN 04/25/21 04/30/21 History Oxybutynin Chloride [Ditropan] 5 mg PO DAILY 04/25/21 04/30/21 History PARoxetine [Paxil] 20 mg PO DAILY 04/25/21 04/30/21 History Allergies Allergy/AdvReac Type Severity Reaction Status Date / Time No Known Allergies Allergy Verified 12/24/21 12:48 Physical Exam Vitals: Vital Signs Temp Pulse Resp BP Pulse Ox 12/24/21 12:45 98.5 F 91 24 141/74 98 Intake and Output 12/24/21 12/24/21 12/24/21 06:59 14:59 22:59 Other: Weight 108.862 kg Gen. patient is awake alert oriented 3 Respiratory normal air entry with very minimal wheezing appreciated minimal rhonchi. Abdomen soft, nontender, ostomy full of stool Cardio normal S1/S2 Extremities no pitting edema noted Genitourinary Humphrey catheter noted with some sediment Abdomen some suprapubic tenderness minimal Psychiatry patient is in good spirits, good mood Results CBC & Chem 7: 12/24/21 13:25 12/24/21 13:25 Labs: Abnormal Lab Results - Last 24 Hours (Table) 12/24/21 12/24/21 Range/Units 13:25 13:25 MCHC 30.4 L (31.0-37.0) g/dL Neutrophils # 7.8 H (1.3-7.7) k/uL Lymphocytes # 0.9 L (1.0-4.8) k/uL Chloride 96 L (98-107) mmol/L Carbon Dioxide 34 H (22-30) mmol/L Glucose 174 H (74-99) mg/dL Assessment and Plan Assessment: Assessment: #1 acute hypoxic respiratory distress secondary to COPD versus viral bronchitis #2 history of central pontine myelinolysis #3 essential hypertension #4 hyperlipidemia #5 obesity stage III #6 status post colostomy #7 chronic urinary incontinence with chronic indwelling Humphrey catheter #8 diabetes mellitus type 2 Plan: -Admit patient under observation -Aspiration/fall precaution/HOB 30 -Patient is currently using 3 L home oxygen requirement -Chest x-ray very nonspecific -We'll start patient on breathing treatment around the clock every 8 hours with azithromycin 500 mg daily given increased phlegm production -IV steroids 40 mg daily we'll reassess tomorrow minimal wheezing appreciated -Influenza/COVID-19 negative -I will obtain UA given sediment and some suprapubic discomfort -DVT prophylaxis Lovenox -Pulmonary consulted from ER.
[2021-12-24] MEDS ORDERED: methylPREDNISolone SOD SUCCI 125 MG/2 ML VIAL IV SCH (18:00)
[2021-12-24] MEDS: methylPREDNISolone SOD SUCCI 40 MG/ML 1 ML VIAL IV SCH (19:52)
[2021-12-24] MEDS: IPRATROPIUM-ALBUTEROL 3 ML NEB INHALATION SCH (21:22)
[2021-12-25] MEDS ORDERED: FUROSEMIDE 10 MG/ML 4 ML VIAL IV SCH (04:00)
[2021-12-25] MEDS ORDERED: LACTULOSE 20 GM/30 ML CUP PO PRN (08:19)
[2021-12-25] MEDS: IPRATROPIUM-ALBUTEROL 3 ML NEB INHALATION SCH ×3 (08:50→20:09)
[2021-12-25] MEDS ORDERED: ASPIRIN 325 MG TAB PO SCH (09:00)
[2021-12-25] MEDS: OXYBUTYNIN XL 5 MG TAB.ER.24 PO SCH (09:47)
[2021-12-25] MEDS: PARoxetine 20 MG TAB PO SCH (09:47)
[2021-12-25] MEDS: methylPREDNISolone SOD SUCCI 40 MG/ML 1 ML VIAL IV SCH (09:47)
[2021-12-25] MEDS: ATORVASTATIN 20 MG TAB PO SCH (09:47)
[2021-12-25] MEDS: ASPIRIN 81 MG PO SCH (09:47)
[2021-12-25] MEDS: IMIPRAMINE 25 MG TAB PO SCH ×2 (09:49→21:45)
--- NOTE | 2021-12-25 11:01 | P.PN ---
Subjective Patient was examined at bedside not complaining of any new symptomatology. She states that her shortness of breath is improved. Currently on 3 L nasal cannula which is her baseline. Objective - Vital Signs Vital signs: Vital Signs Temp 98.5 F 12/25/21 07:45 Pulse 86 12/25/21 08:59 Resp 19 12/25/21 07:45 BP 157/89 12/25/21 07:45 Pulse Ox 98 12/25/21 07:45 Intake & Output 12/24/21 12/25/21 12/25/21 18:59 06:59 18:59 Intake Total 100 Output Total 1700 700 Balance -1700 -600 Weight 108.862 kg Intake: Oral 100 Output: Urine 1700 700 Uretheral (Humphrey) 1200 Other: Voiding Method Indwelling Catheter - Exam Gen. patient is awake alert oriented 3 Respiratory normal air entry with very minimal wheezing appreciated minimal rhonchi. Abdomen soft, nontender, ostomy full of stool Cardio normal S1/S2 Extremities no pitting edema noted Genitourinary Humphrey catheter noted with some sediment to be changed today Abdomen some suprapubic tenderness minimal Psychiatry patient is in good spirits, good mood - Labs CBC & Chem 7: 12/24/21 13:25 12/24/21 13:25 Labs: Abnormal Lab Results - Last 24 Hours (Table) 12/24/21 12/24/21 Range/Units 13:25 13:25 MCHC 30.4 L (31.0-37.0) g/dL Neutrophils # 7.8 H (1.3-7.7) k/uL Lymphocytes # 0.9 L (1.0-4.8) k/uL Chloride 96 L (98-107) mmol/L Carbon Dioxide 34 H (22-30) mmol/L Glucose 174 H (74-99) mg/dL Assessment and Plan Assessment: Assessment: #1 acute hypoxic respiratory distress secondary to COPD versus viral bronchitis #2 history of central pontine myelinolysis #3 essential hypertension #4 hyperlipidemia #5 obesity stage III #6 status post colostomy #7 chronic urinary incontinence with chronic indwelling Humphrey catheter #8 diabetes mellitus type 2 Plan: -Admit patient under observation -Aspiration/fall precaution/HOB 30 -Patient is currently using 3 L home oxygen requirement -Chest x-ray very nonspecific -Decrease IV methylprednisolone to 40 daily. Pending further recommendations from pulmonary. -Cardiology also consulted from ER regarding aortic stenosis -Influenza/COVID-19 negative -I will obtain UA given sediment and some suprapubic discomfort - pending -DVT prophylaxis Lovenox -Pulmonary and cardiology consult from ER.
--- NOTE | 2021-12-25 11:55 | P.CNPUL ---
History of Present Illness Consult date: 12/25/21 Requesting physician: Gerardo Anderson Reason for consult: dyspnea, abnormal CXR/CT Chief complaint: Shortness of breath History of present illness: This is a very pleasant 66-year-old female patient with a known history of olivopontinecerebellar degeneration with muscle weakness and wheelchair depe ndence, memory impairment, hypertension, hyperlipidemia, GI bleed, diabetes mellitus, chronic respiratory failure with home oxygen at 3 L, obesity, her current prognosis, aortic stenosis, obstructive sleep apnea with CPAP. Lifelong nonsmoker. She presented here to the emergency room for increasing shortness of breath. Chest x-ray revealed evidence of pulmonary edema/CHF. Subtle pulmonary infiltration cannot be excluded. We're consulted for the same. She is seen today in consultation on the regular medical floor. She is currently sitting up in bed. Awake and alert in no acute distress. She is a poor historian. She is maintaining O2 saturations in the 90s on 3 L/m per nasal cannula. Afebrile. Hemodynamically stable. White count 9.7. Hemoglobin 11.7. Sodium 137. Potassium 4.8. BUN 11. Creatinine 0.63. AST 32. ALT 22. Troponin negative times one. ProBNP 659. She was initiated on DuoNeb inhalations, Pulmicort inhalations, IV Solu-Medrol. She is also initiated on IV diuretics. Currently in a -1.7 L balance Review of Systems REVIEW OF SYSTEMS: CONSTITUTIONAL: Denies any recent significant weight loss or weight gain. EYES: Denies change in vision. EARS, NOSE, MOUTH, THROAT: Denies headaches, denies sore throat. CARDIOVASCULAR: Denies chest pain, palpitations or syncopal episodes. RESPIRATORY: Positive for shortness of breath, cough, congestion no hemoptysis. GASTROINTESTINAL: Denies change in appetite, denies abdominal pain GENITOURINARY: Denies hematuria, denies infections. MUSKULOSKELETAL: Denies pain, denies swelling. INTEGUMENTARY: Denies rash, denies eczema. NEUROLOGICAL: Denies recent memory loss, no recent seizure activity. PSYCHIATRIC: Denies anxiety, denies depression. HEMATOLOGIC/LYMPHATIC: Denies anemia, denies enlarged lymph nodes. 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,wheel chair depenedent, IDDM type II, neuropathy R leg, sarcoidosis/lungs, bronchitis, aortic sten osis/murmur, past chronic constipation, colostomy, occasional incontinence of stool, lower GI bleed, chronic urinary incontinence/neurogenic bladder/chronic Humphrey/frequent urinary tract infections/sepsis, anemia, gait dysfunction-pt is lifted to electric w/c, obstructive sleep apnea with Cpap use, chronic hydronephrosis of the kidneys, colostomy History of Any Multi-Drug Resistant Organisms: C-DIFF, MRSA Date of last positivie culture/infection: 11/2015 MDRO Source:: c-diff, mrsa 2011 in blood Past Surgical History: Bowel Resection, Tubal Ligation Additional Past Surgical History / Comment(s): 2015 sigmoid volvulus with bowel resection/colostomy, EGD, colonoscopies, bronchoscopies x3, carpal tunnel release-laterallity unknown, D&C, Past Anesthesia/Blood Transfusion Reactions: No Reported Reaction Past Psychological History: Depression Smoking Status: Never smoker Past Alcohol Use History: None Reported Past Drug Use History: None Reported - Past Family History Father Family Medical History: Cancer Additional Family Medical History / Comment(s): from pancreatic cancer Mother Family Medical History: Congestive Heart Failure (CHF), Diabetes Mellitus, Dialysis Additional Family Medical History / Comment(s): from CHF Medications and Allergies Home Medications Medication Instructions Recorded Confirmed Type Aspirin 81 mg PO DAILY 11/10/15 12/24/21 History Atorvastatin Calcium [Lipitor] 20 mg PO DAILY 11/10/15 12/24/21 History Budesonide [Pulmicort] 0.5 mg INHALATION RT-BID 11/10/15 12/24/21 History [place]-3 Fatty Acids/Fish Oil [Fish 1 cap PO DAILY 11/10/15 12/24/21 History Oil 1,000 mg Softgel] Albuterol Nebulized [Ventolin 2.5 mg INHALATION RT-QID 11/11/15 12/24/21 History Nebulized] Oxybutynin Xl [Ditropan XL] 5 mg PO DAILY 11/11/15 12/24/21 History metFORMIN HCL [Glucophage] 1,000 mg PO BID 10/08/19 12/24/21 History Lactulose [Cephulac] 10 gm PO BID PRN 07/20/20 12/24/21 History Multivitamins, Thera [Multivitamin 1 tab PO DAILY 07/20/20 12/24/21 History (formulary)] Psyllium Husk (with Sugar) 1 tbsp PO DAILY 07/20/20 12/24/21 History [Metamucil Powder] Imipramine [Tofranil] 25 mg PO BID #0 07/22/20 12/24/21 Rx Magnesium Citrate 148 ml PO DAILY PRN 04/25/21 12/24/21 History PARoxetine [Paxil] 20 mg PO DAILY 04/25/21 12/24/21 History Cholecalciferol [Vitamin D3 (25 25 mcg PO DAILY 12/24/21 12/24/21 History Mcg = 1000 Iu)] Insulin Aspart [NovoLOG Flexpen] See Protocol SQ AC-TID 12/24/21 12/24/21 History Insulin Glargine,Hum.rec.anlog 50 unit SQ HS 12/24/21 12/24/21 History [Lantus Solostar Pen] L.acidoph,Paracasei, B.lactis 1 cap PO DAILY 12/24/21 12/24/21 History [Probiotic] Allergies Allergy/AdvReac Type Severity Reaction Status Date / Time No Known Allergies Allergy Verified 12/24/21 16:08 Physical Exam Vitals: Vital Signs Temp Pulse Pulse Resp BP BP Pulse Ox 12/25/21 08:59 86 12/25/21 08:50 84 12/25/21 07:45 98.5 F 104 H 19 157/89 98 12/25/21 00:52 97.7 F 96 18 136/76 95 12/24/21 21:31 88 12/24/21 21:22 88 12/24/21 18:05 97.6 F 91 19 122/75 99 12/24/21 15:46 91 16 139/74 99 12/24/21 12:45 98.5 F 91 24 141/74 98 Intake and Output 12/24/21 12/25/21 12/25/21 22:59 06:59 14:59 Intake Total 100 Output Total 7332 392 1197 Balance -1700 -600 -1700 Intake: Oral 100 Output: Urine 3729 142 8569 Uretheral (Humphrey) 1200 Other: Voiding Method Indwelling Catheter Weight 108.862 kg GENERAL EXAM: Alert, pleasant, 66-year-old female patient, poor historian, 3 L nasal cannula, comfortable in no apparent distress. HEAD: Normocephalic. EYES: Normal reaction of pupils, equal size. NOSE: Clear with pink turbinates. THROAT: No erythema or exudates. NECK: No masses, no JVD. CHEST: No chest wall deformity. LUNGS: Equal air entry with crackles in the posterior bases. CVS: S1 and S2 normal with no audible murmur, regular rhythm. ABDOMEN: No hepatosplenomegaly, normal bowel sounds, no guarding or rigidity. SPINE: No scoliosis or deformity SKIN: No rashes CENTRAL NERVOUS SYSTEM: No focal deficits, tone is normal in all 4 extremities. EXTREMITIES: There is no peripheral edema. No clubbing, no cyanosis. Peripheral pulses are intact. Results - Laboratory Findings CBC and BMP: 12/24/21 13:25 12/24/21 13:25 PT/INR, D-dimer PT 10.1 sec (9.0-12.0) 12/24/21 13:25 INR 0.9 (<1.2) 12/24/21 13:25 Abnormal lab findings: Abnormal Labs 12/24/21 12/24/21 13:25 13:25 MCHC 30.4 L Neutrophils # 7.8 H Lymphocytes # 0.9 L Chloride 96 L Carbon Dioxide 34 H Glucose 174 H - Diagnostic Findings Chest x-ray: image reviewed Assessment and Plan Assessment: 1 Acute on chronic hypoxemic respiratory failure secondary to acute exacerbation of diastolic congestive heart failure 2 Severe aortic stenosis and had previously been considered for possible TAVR 3 Chronic hypoxemic respiratory failure secondary to above 4 Lifelong nonsmoker 5 History of olivopontinocerebellar demyelination with previous MRI showing central pontine myelin lysis and obvious demyelination and degeneration in the cerebellum and portions of the brain stem 6 Diabetes mellitus 7 Chronic urinary incontinence with previous chronic indwelling Humphrey catheter 8 Hypertension 9 Hyperlipidemia 10 Obstructive sleep apnea maintained on CPAP 11 History of bowel resection with colostomy 12 History of chronic urinary incontinence and chronic Humphrey catheter with previous frequent UTIs 13 History of sarcoidosis 14 Poor overall functional performance based on the above-mentioned multiple comorbidities, requires electric wheelchair Plan: The patient was seen and evaluated Chest x-ray and labs reviewed Continue DuoNeb inhalations, Pulmicort inhalation Discontinue steroids Continue IV diuretics We will continue to follow and make further recommendations based on her clinical status I have personally seen and examined the patient, performed the documentation and the assessment and plan as written. Number of minutes spent on the visit: 20.
--- NOTE | 2021-12-25 12:08 | P.CRDCN ---
History of Present Illness History of present illness: HISTORY OF PRESENTING ILLNESS This is a pleasant 66-year-old female past medical history significant for hypertension, severe stenosis, COPD, type 2 diabetes. She follows in the office with Dr. Valero. We have been asked to see in consultation for congestive heart failure and aortic stenosis. Patient presents to the emergency department with complaints of shortness of breath and productive cough. She is seen and examined at bedside. She is not sure why she is in the hospital. She denies any shortness of breath, cough, chest pain, lightheadedness, dizziness, syncope or near syncope. She has no complaints. She is no lower extremity edema. Denies symptoms of orthopnea and PND. She states she sleeps with one pillow. Appears to be a poor historian. Patient was evaluated outpatient by cardiothoracic surgeon for her aortic valve, possible TAVR, and she decided not to undergo aortic valve replacement at that time. DIAGNOSTICS * EKG reveals sinus rhythm, heart rate 91, nonspecific ST ST-T wave abnormalities. No acute ischemia noted. Artifact noted. * Telemetry tracings indicate sinus mechanism HR 80s-low 100s * Chest xray congestive bilateral pulmonary vasculature was prominent interstitial lung markings. Questionable subcu emphysema right mid lung. * Laboratory reviewed, WBC 9.7, hemoglobin 11.7, platelets 223, proBNP 659, troponin negative, sodium 137, potassium 4.8, BUN 11, serum creatinine 0.6 * Cardiac catheterization 04/30/2021 revealed severe aortic stenosis and normal ascending aorta and normal coronary arteries * MURIEL 03/2021 revealed bicuspid aortic valve, severe restriction in leaflet mobility, severe aortic stenosis, left atrium appears mildly enlarged * 2D Echo in the office 05/2020 revealed EF 55%, moderate severe aortic stenosis with a peak/mean gradient of 34 mmHg/18 mmHg. * Current home medications include aspirin 81 mg daily, atorvastatin 20 mg daily, metformin, insulin REVIEW OF SYSTEMS At the time of my exam: CONSTITUTIONAL: Denies fever or chills. CARDIOVASCULAR: Denies chest pain, shortness of breath, orthopnea, PND or palpitations. RESPIRATORY: Denies cough. GASTROINTESTINAL: Denies abdominal pain, diarrhea, constipation, nausea or vomiting. MUSCULOSKELETAL: Denies myalgias. NEUROLOGIC: Denies numbness, tingling, headacbe or weakness. ENDOCRINE: Denies fatigue, weight change, polydipsia or polyurina. GENITOURINARY: Denies burning, hematuria or urgency with micturation. HEMATOLOGIC: Denies history of anemia or bleeding. PHYSICAL EXAMINATION Blood pressure 157/89, heart rate 84, afebrile, saturations 90% on 2 L nasal cannula CONSTITUTIONAL: No apparent distress. HEENT: Head is normocephalic. Pupils are equal, round. Sclerae anicteric. Mucous membranes of the mouth are moist. No JVD. No carotid bruit. CHEST EXAMINATION: Lungs are clear to auscultation. No chest wall tenderness is noted on palpation or with deep breathing. HEART EXAMINATION: Regular rate and rhythm. S1, S2 heard. Systolic ejection murmur at apex. ABDOMEN: Soft, nontender. Positive bowel sounds. EXTREMITIES: 2+ peripheral pulses, no lower extremity edema and no calf tenderness. NEUROLOGIC EXAMINATION: Patient is awake, alert and oriented x3. ASSESSMENT Symptoms of shortness of breath Severe bicuspid aortic valve stenosis Hypertension Dyslipidemia Type 2 Diabetes Obesity BMI 43 Obstructive sleep apnea with home CPAP use PLAN Patient does not appear to be in acute heart failure on exam Recommend discontinuing IV Diuretics PO Lasix 20mg BID Continue home cardiac medications Recommend follow up with Dr. Valero and further discussion of aortic valve replacement as an outpatient Nurse practitioner note has been reviewed by physician. Signing provider agrees with the documented findings, assessment, and plan of care. 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,wheel chair depenedent, IDDM type II, neuropathy R leg, sarcoidosis/lungs, bronchitis, aortic stenosis/murmur, past chronic constipation, colostomy, occasional incontinence of stool, lower GI bleed, chronic urinary incontinence/neurogenic bladder/chronic Humphrey/frequent urinary tract infections/sepsis, anemia, gait dysfunction-pt is lifted to electric w/c, obstructive sleep apnea with Cpap use, chronic hydronephrosis of the kidneys, colostomy History of Any Multi-Drug Resistant Organisms: C-DIFF, MRSA Date of last positivie culture/infection: 11/2015 MDRO Source:: c-diff, mrsa 2011 in blood Past Surgical History: Bowel Resection, Tubal Ligation Additional Past Surgical History / Comment(s): 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, EGD, colonoscopies, bronchoscopies x3, carpal tunnel release-laterallity unknown, D&C, Past Anesthesia/Blood Transfusion Reactions: No Reported Reaction Past Psychological History: Depression Smoking Status: Never smoker Past Alcohol Use History: None Reported Past Drug Use History: None Reported - Past Family History Father Family Medical History: Cancer Additional Family Medical History / Comment(s): from pancreatic cancer Mother Family Medical History: Congestive Heart Failure (CHF), Diabetes Mellitus, Dialysis Additional Family Medical History / Comment(s): from CHF Medications and Allergies Home Medications Medication Instructions Recorded Confirmed Type Aspirin 81 mg PO DAILY 11/10/15 12/24/21 History Atorvastatin Calcium [Lipitor] 20 mg PO DAILY 11/10/15 12/24/21 History Budesonide [Pulmicort] 0.5 mg INHALATION RT-BID 11/10/15 12/24/21 History [place]-3 Fatty Acids/Fish Oil [Fish 1 cap PO DAILY 11/10/15 12/24/21 History Oil 1,000 mg Softgel] Albuterol Nebulized [Ventolin 2.5 mg INHALATION RT-QID 11/11/15 12/24/21 History Nebulized] Oxybutynin Xl [Ditropan XL] 5 mg PO DAILY 11/11/15 12/24/21 History metFORMIN HCL [Glucophage] 1,000 mg PO BID 10/08/19 12/24/21 History Lactulose [Cephulac] 10 gm PO BID PRN 07/20/20 12/24/21 History Multivitamins, Thera [Multivitamin 1 tab PO DAILY 07/20/20 12/24/21 History (formulary)] Psyllium Husk (with Sugar) 1 tbsp PO DAILY 07/20/20 12/24/21 History [Metamucil Powder] Imipramine [Tofranil] 25 mg PO BID #0 07/22/20 12/24/21 Rx Magnesium Citrate 148 ml PO DAILY PRN 04/25/21 12/24/21 History PARoxetine [Paxil] 20 mg PO DAILY 04/25/21 12/24/21 History Cholecalciferol [Vitamin D3 (25 25 mcg PO DAILY 12/24/21 12/24/21 History Mcg = 1000 Iu)] Insulin Aspart [NovoLOG Flexpen] See Protocol SQ AC-TID 12/24/21 12/24/21 History Insulin Glargine,Hum.rec.anlog 50 unit SQ HS 12/24/21 12/24/21 History [Lantus Solostar Pen] L.acidoph,Paracasei, B.lactis 1 cap PO DAILY 12/24/21 12/24/21 History [Probiotic] Allergies Allergy/AdvReac Type Severity Reaction Status Date / Time No Known Allergies Allergy Verified 12/24/21 16:08 Physical Exam Vitals: Vital Signs Temp Pulse Pulse Resp BP BP Pulse Ox 12/25/21 00:52 97.7 F 96 18 136/76 95 12/24/21 21:31 88 12/24/21 21:22 88 12/24/21 18:05 97.6 F 91 19 122/75 99 12/24/21 15:46 91 16 139/74 99 12/24/21 12:45 98.5 F 91 24 141/74 98 Intake and Output 12/24/21 12/25/21 12/25/21 22:59 06:59 14:59 Intake Total 100 Output Total 1700 700 Balance -1700 -600 Intake: Oral 100 Output: Urine 1700 700 Uretheral (Humphrey) 1200 Other: Weight 108.862 kg Results 12/24/21 13:25 12/24/21 13:25 Cardiac Enzymes 12/24/21 12/24/21 Range/Units 13:25 13:25 AST 32 (14-36) U/L Troponin I <0.012 (0.000-0.034) ng/mL Coagulation 12/24/21 Range/Units 13:25 PT 10.1 (9.0-12.0) sec APTT 29.4 (22.0-30.0) sec CBC 12/24/21 Range/Units 13:25 WBC 9.7 (3.8-10.6) k/uL RBC 4.02 (3.80-5.40) m/uL Hgb 11.7 (11.4-16.0) gm/dL Hct 38.4 (34.0-46.0) % Plt Count 223 (150-450) k/uL Comprehensive Metabolic Panel 12/24/21 Range/Units 13:25 Sodium 137 (137-145) mmol/L Potassium 4.8 (3.5-5.1) mmol/L Chloride 96 L (98-107) mmol/L Carbon Dioxide 34 H (22-30) mmol/L BUN 11 (7-17) mg/dL Creatinine 0.63 (0.52-1.04) mg/dL Glucose 174 H (74-99) mg/dL Calcium 8.8 (8.4-10.2) mg/dL AST 32 (14-36) U/L ALT 22 (4-34) U/L Alkaline Phosphatase 80 (38-126) U/L Total Protein 7.4 (6.3-8.2) g/dL Albumin 3.7 (3.5-5.0) g/dL Current Medications Generic Name Dose Route Start Last Admin Trade Name Freq PRN Reason Stop Dose Admin Albuterol/Ipratropium 3 ml 12/24/21 20:00 12/24/21 21:22 Ipratropium-Albuterol 3 Ml Neb INHALATION 3 ml RT-TID BROOKE Administration Aspirin 325 mg 12/25/21 09:00 Aspirin 325 Mg Tab PO DAILY BROOKE Furosemide 40 mg 12/25/21 04:00 12/25/21 02:59 Furosemide 10 Mg/Ml 4 Ml Vial IV 40 mg Q12H BROOKE Administration Methylprednisolone Sodium Succinate 40 mg 12/24/21 21:00 12/24/21 19:52 Methylprednisolone Sod Succi 40 Mg/Ml 1 Ml Vial IV 40 mg Q12HR BROOKE Administration Sodium Chloride 10 ml 12/24/21 21:00 12/24/21 19:52 Sodium Chloride 0.9% Flush 10 Ml Syringe IV 10 ml BID BROOKE Administration Intake and Output 12/24/21 12/25/21 12/25/21 22:59 06:59 14:59 Intake Total 100 Output Total 1700 700 Balance -1700 -600 Intake: Oral 100 Output: Urine 1700 700 Uretheral (Humphrey) 1200 Other: Weight 108.862 kg 12/24/21 13:25 12/24/21 13:25
[2021-12-25 12:40] VITALS: BMI 43.9
[2021-12-25 13:44] LABS: Appearance,Urine Clear (Clear); Bacteria,Urine Occasional /hpf; Bilirubin,Urine Negative (Negative); Blood,Urine Small (Negative); Color,Urine Light Yellow; Glucose,Urine (UA) 4+ (Negative); Ketones,Urine Negative (Negative); Leukocyte Esterase,Urine Large (Negative); Mucus,Urine Rare /hpf; Nitrite,Urine Positive (Negative); PH, Urine 6.5 (5.0-8.0); Protein,Urine Negative (Negative); RBC,Urine 23 /hpf (0-5); Specific Gravity,Urine 1.017 (1.001-1.035); Squamous Epithelial Cell,Urine <1 /hpf (0-4); Urobilinogen,Urine <2.0 mg/dL (<2.0); WBC,Urine 98 /hpf (0-5)
[2021-12-25] MEDS: FUROSEMIDE 20 MG TAB PO SCH (17:01)
[2021-12-25] MEDS: BUDESONIDE 0.5 MG/2 ML NEBU INHALATION SCH (20:08)
[2021-12-25] MEDS ORDERED: INSULIN DETEMIR (LEVEMIR) 100 UNIT/ML SYR SQ SCH (21:00)
[2021-12-25 21:12] LABS: Glucose,Whole Blood 588 mg/dL (75-99)
[2021-12-25] MEDS ORDERED: INSULIN ASPART (NovoLOG) 100 UNIT/ML VIAL SQ ONE (21:13)
[2021-12-26 00:11] LABS: Glucose,Whole Blood 555 mg/dL (75-99)
[2021-12-26 00:12] LABS: Glucose,Whole Blood 523 mg/dL (75-99)
[2021-12-26] MEDS ORDERED: INSULIN ASPART (NovoLOG) 100 UNIT/ML VIAL SQ ONE ×3 (00:17→23:29)
[2021-12-26 03:53] LABS: Glucose,Whole Blood 406 mg/dL (75-99)
[2021-12-26 06:09] LABS: Glucose,Whole Blood 354 mg/dL (75-99)
[2021-12-26] MEDS: INSULIN ASPART (NovoLOG) 100 UNIT/ML VIAL SQ SCH ×4 (07:48→21:15)
[2021-12-26] MEDS: FUROSEMIDE 20 MG TAB PO SCH ×2 (07:49→16:25)
[2021-12-26] MEDS: OXYBUTYNIN XL 5 MG TAB.ER.24 PO SCH (07:49)
[2021-12-26] MEDS: ATORVASTATIN 20 MG TAB PO SCH (07:49)
[2021-12-26] MEDS: PARoxetine 20 MG TAB PO SCH (07:49)
[2021-12-26] MEDS: ASPIRIN 81 MG PO SCH (07:49)
[2021-12-26] MEDS: IMIPRAMINE 25 MG TAB PO SCH ×2 (07:50→21:15)
[2021-12-26 07:51] LABS: Glucose,Whole Blood 248 mg/dL (75-99)
[2021-12-26] MEDS: IPRATROPIUM-ALBUTEROL 3 ML NEB INHALATION SCH ×3 (08:42→20:46)
[2021-12-26] MEDS: BUDESONIDE 0.5 MG/2 ML NEBU INHALATION SCH ×2 (08:43→20:46)
[2021-12-26] MEDS ORDERED: methylPREDNISolone SOD SUCCI 40 MG/ML 1 ML VIAL IV SCH (09:00)
--- NOTE | 2021-12-26 10:37 | P.PN ---
Subjective Patient was evaluated bedside today not complaining of any new symptomatology. Denies any active chest pain, shortness of breath or palpitations. She continues to be on 3 L nasal cannula which is her home about. Case discussed with RN present at bedside. Patient's glucose unfortunately have been very poorly controlled and she was on IV methylprednisolone. Insulin adjustments have been made we will continue to monitor for another 24 hours prior to discharge. Objective - Vital Signs Vital signs: Vital Signs Temp 98.0 F 12/26/21 08:00 Pulse 90 12/26/21 08:57 Resp 16 12/26/21 08:00 BP 117/65 12/26/21 08:00 Pulse Ox 94 L 12/26/21 08:45 Intake & Output 12/25/21 12/26/21 12/26/21 18:59 06:59 18:59 Output Total 2700 1000 Balance -2700 -1000 Weight 108.862 kg Output: Urine 2700 1000 Other: Voiding Method Indwelling Catheter Indwelling Catheter - Exam Gen. patient is awake alert oriented 3 Respiratory normal air entry with very minimal wheezing appreciated minimal rhonchi. Currently on 3 L nasal cannula Abdomen soft, nontender, ostomy full of stool Cardio normal S1/S2 Extremities no pitting edema noted Genitourinary Humphrey catheter noted with some sediment to be changed today Abdomen some suprapubic tenderness minimal Psychiatry patient is in good spirits, good mood - Labs CBC & Chem 7: 12/24/21 13:25 12/24/21 13:25 Labs: Abnormal Lab Results - Last 24 Hours (Table) 12/25/21 12/25/21 12/26/21 Range/Units 13:31 20:55 00:09 POC Glucose (mg/dL) 588 H 555 H (75-99) mg/dL Urine Glucose (UA) 4+ H (Negative) Urine Blood Small H (Negative) Urine Nitrite Positive H (Negative) Ur Leukocyte Esterase Large H (Negative) Urine RBC 23 H (0-5) /hpf Urine WBC 98 H (0-5) /hpf Urine Bacteria Occasional H (None) /hpf Urine Mucus Rare H (None) /hpf 12/26/21 12/26/21 12/26/21 Range/Units 00:11 03:50 06:03 POC Glucose (mg/dL) 523 H 406 H 354 H (75-99) mg/dL Urine Glucose (UA) (Negative) Urine Blood (Negative) Urine Nitrite (Negative) Ur Leukocyte Esterase (Negative) Urine RBC (0-5) /hpf Urine WBC (0-5) /hpf Urine Bacteria (None) /hpf Urine Mucus (None) /hpf 12/26/21 Range/Units 07:49 POC Glucose (mg/dL) 248 H (75-99) mg/dL Urine Glucose (UA) (Negative) Urine Blood (Negative) Urine Nitrite (Negative) Ur Leukocyte Esterase (Negative) Urine RBC (0-5) /hpf Urine WBC (0-5) /hpf Urine Bacteria (None) /hpf Urine Mucus (None) /hpf Microbiology - Last 24 Hours (Table) 12/25/21 13:31 Urine Culture - Preliminary Urine,Voided Assessment and Plan Assessment: Assessment: #1 acute hypoxic respiratory distress secondary to COPD versus viral bronchitis #2 history of central pontine myelinolysis #3 essential hypertension #4 hyperlipidemia #5 obesity stage III #6 status post colostomy #7 chronic urinary incontinence with chronic indwelling Humphrey catheter #8 diabetes mellitus type 2 Plan: -Admit patient under observation -Aspiration/fall precaution/HOB 30 -Patient is currently using 3 L home oxygen requirement -Glucose levels have been very poorly controlled. I have resumed her home dose 25 units in the morning and 25 units at bedtime. Continue with low-dose sliding scale for now continue to monitor for 24 hours. -Pending discharge recommendations from cardiology and pulmonary. Steroids have been discontinued as per pulmonary recommendations. -Chest x-ray very nonspecific -Cardiology recommending outpatient follow-up for aortic stenosis/TAVR procedure. -Influenza/COVID-19 negative -Urinalysis reviewed however the patient is asymptomatic and has a chronic indwelling catheter. Catheter exchanged. -DVT prophylaxis Lovenox Disposition anticipate discharge once glucose levels are well managed. Dischar ge in the next 24 hours most likely once cleared by. Patient was made nothing by mouth overnight and was given insulin. I resumed her diet to diabetic diet we'll continue to monitor.
--- NOTE | 2021-12-26 10:37 | P.PN ---
Subjective This is a pleasant 66-year-old female past medical history significant for hypertension, severe stenosis, COPD, type 2 diabetes. She follows in the office with Dr. Valero. We have been asked to see in consultation for congestive heart failure and aortic stenosis. Patient presents to the emergency department with complaints of shortness of breath and productive cough. She is seen and examined at bedside. She is not sure why she is in the hospital. She denies any shortness of breath, cough, chest pain, lightheadedness, dizziness, syncope or near syncope. She has no complaints. She is no lower extremity edema. Denies symptoms of orthopnea and PND. She states she sleeps with one pillow. Appears to be a poor historian. Patient was evaluated outpatient by cardiothoracic surgeon for her aortic valve, possible TAVR, and she decided not to undergo aortic valve replacement at that time. DIAGNOSTICS * EKG reveals sinus rhythm, heart rate 91, nonspecific ST ST-T wave abnormalities. No acute ischemia noted. Artifact noted. * Telemetry tracings indicate sinus mechanism HR 80s-low 100s * Cardiac catheterization 04/30/2021 revealed severe aortic stenosis and normal ascending aorta and normal coronary arteries * MURIEL 03/2021 revealed bicuspid aortic valve, severe restriction in leaflet mobility, severe aortic stenosis, left atrium appears mildly enlarged * 2D Echo in the office 05/2020 revealed EF 55%, moderate severe aortic stenosis with a peak/mean gradient of 34 mmHg/18 mmHg. 12/26/2021 Patient seen at bedside, no acute distress. She states her breathing has improved. She is lying comfortably in bed in no acute distress. No shortness of breath. No chest pain. She denies any symptoms of orthopnea or PND. Labs pending for today. Patient continues to refuse TAVR. Patient with negative fluid balance -2300 over the past 24 hours. She currently denies aspirin 80 mg daily, atorvastatin 20 mg daily, Lasix 20 mg twice a day PO. PHYSICAL EXAMINATION Blood pressure 117/65 heart rate 84, afebrile, saturations 90% on 2 L nasal cannula CONSTITUTIONAL: No apparent distress. HEENT: Head is normocephalic. Pupils are equal, round. Sclerae anicteric. Mucous membranes of the mouth are moist. No JVD. No carotid bruit. CHEST EXAMINATION: Lungs are clear to auscultation. No chest wall tenderness is noted on palpation or with deep breathing. HEART EXAMINATION: Regular rate and rhythm. S1, S2 heard. Systolic ejection murmur at apex. ABDOMEN: Soft, nontender. Positive bowel sounds. EXTREMITIES: 2+ peripheral pulses, no lower extremity edema and no calf tenderness. NEUROLOGIC EXAMINATION: Patient is awake, alert and oriented x3. ASSESSMENT Symptoms of shortness of breath Severe bicuspid aortic valve stenosis Hypertension Dyslipidemia Type 2 Diabetes Obesity BMI 43 Obstructive sleep apnea with home CPAP use PLAN Patient does not appear to be in acute heart failure on exam PO Lasix 20mg BID Continue home cardiac medications Recommend follow up with Dr. Valero and further discussion of aortic valve replacement as an outpatient. Patient continues to refuse TAVR at this time. Nurse practitioner note has been reviewed by physician. Signing provider agrees with the documented findings, assessment, and plan of care. Objective - Vital Signs Vital signs: Vital Signs Temp 98.0 F 12/26/21 08:00 Pulse 90 12/26/21 08:57 Resp 16 12/26/21 08:00 BP 117/65 12/26/21 08:00 Pulse Ox 94 L 12/26/21 08:45 Intake & Output 12/25/21 12/26/21 12/26/21 18:59 06:59 18:59 Output Total 2700 1000 Balance -2700 -1000 Weight 108.862 kg Output: Urine 2700 1000 Other: Voiding Method Indwelling Catheter Indwelling Catheter - Labs CBC & Chem 7: 12/24/21 13:25 12/24/21 13:25 Labs: Abnormal Lab Results - Last 24 Hours (Table) 12/25/21 12/25/21 12/26/21 Range/Units 13:31 20:55 00:09 POC Glucose (mg/dL) 588 H 555 H (75-99) mg/dL Urine Glucose (UA) 4+ H (Negative) Urine Blood Small H (Negative) Urine Nitrite Positive H (Negative) Ur Leukocyte Esterase Large H (Negative) Urine RBC 23 H (0-5) /hpf Urine WBC 98 H (0-5) /hpf Urine Bacteria Occasional H (None) /hpf Urine Mucus Rare H (None) /hpf 12/26/21 12/26/21 12/26/21 Range/Units 00:11 03:50 06:03 POC Glucose (mg/dL) 523 H 406 H 354 H (75-99) mg/dL Urine Glucose (UA) (Negative) Urine Blood (Negative) Urine Nitrite (Negative) Ur Leukocyte Esterase (Negative) Urine RBC (0-5) /hpf Urine WBC (0-5) /hpf Urine Bacteria (None) /hpf Urine Mucus (None) /hpf 12/26/21 Range/Units 07:49 POC Glucose (mg/dL) 248 H (75-99) mg/dL Urine Glucose (UA) (Negative) Urine Blood (Negative) Urine Nitrite (Negative) Ur Leukocyte Esterase (Negative) Urine RBC (0-5) /hpf Urine WBC (0-5) /hpf Urine Bacteria (None) /hpf Urine Mucus (None) /hpf Microbiology - Last 24 Hours (Table) 12/25/21 13:31 Urine Culture - Preliminary Urine,Voided
[2021-12-26 11:25] LABS: Glucose,Whole Blood 188 mg/dL (75-99)
--- NOTE | 2021-12-26 11:32 | P.PN ---
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 Lifelong nonsmoker. She presented here to the emergency room for increasing shortness of breath. Chest x-ray revealed evidence of pulmonary edema/CHF. Subtle pulmonary infiltration cannot be excluded. We're consulted for the same. She is seen today in consultation on the regular medical floor. She is currently sitting up in bed. Awake and alert in no acute distress. She is a poor historian. She is maintaining O2 saturations in the 90s on 3 L/m per nasal cannula. Afebrile. Hemodynamically stable. White count 9.7. Hemoglobin 11.7. Sodium 137. P otassium 4.8. BUN 11. Creatinine 0.63. AST 32. ALT 22. Troponin negative times one. ProBNP 659. She was initiated on DuoNeb inhalations, Pulmicort inhalations, IV Solu-Medrol. She is also initiated on IV diuretics. Currently in a -1.7 L balance On 12/26/2021 patient seen in follow-up on the medical surgical floor. She states she is breathing easier, she been treated for acute exacerbation of diastolic heart failure, she remains on diuretics, she is in -3700 and the net fluid balance over the last 24 hours, she is on 3 L of oxygen pulse ox 98%. Patient has a history of severe aortic stenosis and was previously considered for TAVR. She was evaluated on outpatient basis by cardiothoracic surgeon, and the patient decided not to undergo aortic valve replacement at that time. Cogni tive chest discomfort. She is resting in bed, does not appear to be in any acute distress, patient has been afebrile, but pressures been stable. Today's labs are still pending. Urinalysis suggest possible urinary tract infection, patient has a chronic indwelling Humphrey catheter in place, with chronic urinary incontinence, urine culture has been sent and pending at this time. Objective - Vital Signs Vital signs: Vital Signs Temp 98.0 F 12/26/21 08:00 Pulse 90 12/26/21 08:57 Resp 16 12/26/21 08:00 BP 117/65 12/26/21 08:00 Pulse Ox 94 L 12/26/21 08:45 Intake & Output 12/25/21 12/26/21 12/26/21 18:59 06:59 18:59 Output Total 2700 1000 Balance -2700 -1000 Weight 108.862 kg Output: Urine 2700 1000 Other: Voiding Method Indwelling Catheter Indwelling Catheter - Exam GENERAL EXAM: Alert, 66-year-old white female, resting comfortably in bed, 3 L of oxygen pulse ox of 98%, comfortable in no apparent distress. HEAD: Normocephalic/atraumatic. EYES: Normal reaction of pupils, equal size. Conjunctiva pink, sclera white. NOSE: Clear with pink turbinates. THROAT: No erythema or exudates. NECK: No masses, no JVD, no thyroid enlargement, no adenopathy. CHEST: No chest wall deformity. Symmetrical expansion. LUNGS: Equal air entry with bibasilar crackles CVS: Regular rate and rhythm, normal S1 and S2, no gallops, no murmurs, no rubs ABDOMEN: Soft, nontender. No hepatosplenomegaly, normal bowel sounds, no guarding or rigidity. EXTREMITIES: No clubbing, no edema, no cyanosis, 2+ pulses and upper and lower extremities. MUSCULOSKELETAL: Muscle strength and tone normal. SPINE: No scoliosis or deformity SKIN: No rashes CENTRAL NERVOUS SYSTEM: Alert and oriented -3. No focal deficits, tone is normal in all 4 extremities. PSYCHIATRIC: Alert and oriented -3. Appropriate affect. Intact judgment and insight. - Labs CBC & Chem 7: 12/24/21 13:25 12/24/21 13:25 Labs: Abnormal Lab Results - Last 24 Hours (Table) 12/25/21 12/25/21 12/26/21 Range/Units 13:31 20:55 00:09 POC Glucose (mg/dL) 588 H 555 H (75-99) mg/dL Urine Glucose (UA) 4+ H (Negative) Urine Blood Small H (Negative) Urine Nitrite Positive H (Negative) Ur Leukocyte Esterase Large H (Negative) Urine RBC 23 H (0-5) /hpf Urine WBC 98 H (0-5) /hpf Urine Bacteria Occasional H (None) /hpf Urine Mucus Rare H (None) /hpf 04/20/22 04/20/22 04/20/22 Range/Units 00:11 03:50 06:03 POC Glucose (mg/dL) 523 H 406 H 354 H (75-99) mg/dL Urine Glucose (UA) (Negative) Urine Blood (Negative) Urine Nitrite (Negative) Ur Leukocyte Esterase (Negative) Urine RBC (0-5) /hpf Urine WBC (0-5) /hpf Urine Bacteria (None) /hpf Urine Mucus (None) /hpf 12/26/21 Range/Units 07:49 POC Glucose (mg/dL) 248 H (75-99) mg/dL Urine Glucose (UA) (Negative) Urine Blood (Negative) Urine Nitrite (Negative) Ur Leukocyte Esterase (Negative) Urine RBC (0-5) /hpf Urine WBC (0-5) /hpf Urine Bacteria (None) /hpf Urine Mucus (None) /hpf Microbiology - Last 24 Hours (Table) 12/25/21 13:31 Urine Culture - Preliminary Urine,Voided Assessment and Plan Plan: Assessment: #1. Acute hypoxic respiratory failure secondary to acute exacerbation of diastolic CHF #2. History of severe aortic stenosis, bicuspid aortic valve, patient was e valuated for TAVR, however decided not to go through with it #3. 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 Memory impairment #5. Hypertension #6. Hyperlipidemia #7. Diabetes mellitus type 2 #8. Chronic urinary incontinence with a chronic indwelling catheter #9. Urinalysis suggestive of urinary tract infection, urine culture is pending #10. Lifelong nonsmoker #11. Obstructive sleep apnea on CPAP Plan: Continue diuretics per cardiology Patient is breathing easier She is maintaining negative fluid balance Follow-up chest x-ray tomorrow Follow-up labs including electrolytes and renal profile Accurate intake and output, and daily weights I have personally seen and examined the patient, performed the documentation and the assessment and plan as written. Number of minutes spent on the visit: [10] Time with Patient: Less than 30
[2021-12-26 12:46] LABS: African American GFR (CKD) >90 (>60 ml/min/1.73 sqM); Anion Gap 6 mmol/L; Blood Urea Nitrogen 20 mg/dL (7-17); Calcium 8.9 mg/dL (8.4-10.2); Carbon Dioxide 38 mmol/L (22-30); Chloride 95 mmol/L (98-107); Glucose 184 mg/dL (74-99); Non-African American GFR(CKD) 90 (>60 ml/min/1.73 sqM); Potassium 4.7 mmol/L (3.5-5.1); Sodium 139 mmol/L (137-145)
[2021-12-26 16:35] LABS: Glucose,Whole Blood 351 mg/dL (75-99)
[2021-12-26 18:59] LABS: Basophils # (A) 0.02 X 10*3/uL (0.00-0.10); Basophils % (A) 0.2 %; Eosinophils # (A) 0.02 X 10*3/uL (0.04-0.35); Eosinophils % (A) 0.2 %; HCT 36.2 % (37.2-46.3); HGB 10.5 g/dL (12.0-15.0); Immature Grans, Automated 0.3 %; Lymphocytes % (A) 6.6 %; MCH 28.2 pg (27.0-32.0); MCV 97.1 fL (80.0-97.0); Mean Platelet Volume 11.5 fL (9.5-12.2); Monocytes # (A) 0.46 X 10*3/uL (0.20-1.00); Monocytes % (A) 5.1 %; NRBC Per 100 WBC 0 /100 WBCS (0.0-0.0); Neutrophils # (A) 7.97 X 10*3/uL (1.80-7.70); Neutrophils % (A) 87.6 %; Platelet Count 280 X 10*3/uL (140-440); RBC 3.73 X 10*6/uL (4.10-5.20); RDW 14.7 % (11.5-14.5)
[2021-12-26 20:19] LABS: Glucose,Whole Blood 481 mg/dL (75-99)
[2021-12-26] MEDS: INSULIN DETEMIR (LEVEMIR) 100 UNIT/ML SYR SQ SCH (21:14)
[2021-12-26 23:27] LABS: Glucose,Whole Blood 340 mg/dL (75-99)
[2021-12-27 02:17] LABS: Glucose,Whole Blood 208 mg/dL (75-99)
[2021-12-27 02:37] VITALS: RESP 15
[2021-12-27 06:26] LABS: African American GFR (CKD) >90 (>60 ml/min/1.73 sqM); Anion Gap 3 mmol/L; Blood Urea Nitrogen 20 mg/dL (7-17); Calcium 8.7 mg/dL (8.4-10.2); Chloride 98 mmol/L (98-107); Glucose 142 mg/dL (74-99); Non-African American GFR(CKD) 81 (>60 ml/min/1.73 sqM); Potassium 3.8 mmol/L (3.5-5.1); Sodium 141 mmol/L (137-145)
[2021-12-27 06:33] LABS: Carbon Dioxide 40 mmol/L (22-30)
[2021-12-27 06:38] LABS: Glucose,Whole Blood 130 mg/dL (75-99)
[2021-12-27] MEDS: INSULIN ASPART (NovoLOG) 100 UNIT/ML VIAL SQ SCH ×2 (07:41→12:04)
[2021-12-27] MEDS: OXYBUTYNIN XL 5 MG TAB.ER.24 PO SCH (07:51)
[2021-12-27] MEDS: ATORVASTATIN 20 MG TAB PO SCH (07:51)
[2021-12-27] MEDS: PARoxetine 20 MG TAB PO SCH (07:51)
[2021-12-27] MEDS: INSULIN DETEMIR (LEVEMIR) 100 UNIT/ML SYR SQ SCH (07:51)
[2021-12-27] MEDS: FUROSEMIDE 20 MG TAB PO SCH (07:51)
[2021-12-27] MEDS: ASPIRIN 81 MG PO SCH (07:51)
[2021-12-27] MEDS: IMIPRAMINE 25 MG TAB PO SCH (07:52)
[2021-12-27] MEDS: IPRATROPIUM-ALBUTEROL 3 ML NEB INHALATION SCH ×2 (08:03→11:33)
[2021-12-27] MEDS: BUDESONIDE 0.5 MG/2 ML NEBU INHALATION SCH (08:03)
--- NOTE | 2021-12-27 09:31 | XR ---
EXAMINATION TYPE: XR chest 1V portable DATE OF EXAM: 12/27/2021 COMPARISON: X-ray dated 12/24/2021 HISTORY: Shortness of breath TECHNIQUE: Single frontal view of the chest is obtained. FINDINGS: Interval improvement of the previously seen signs suggestive of pulmonary edema/CHF yet still appreci ated. No sizable pleural effusion or definite pneumothorax. Unchanged cardiomediastinal silhouette an d bony thoracic cage. IMPRESSION: Interval improvement as described above.
[2021-12-27 11:15] LABS: Glucose,Whole Blood 231 mg/dL (75-99)
--- NOTE | 2021-12-27 11:18 | P.PN ---
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 Lifelong nonsmoker. She presented here to the emergency room for increasing shortness of breath. Chest x-ray revealed evidence of pulmonary edema/CHF. Subtle pulmonary infiltration cannot be excluded. We're consulted for the same. She is seen today in consultation on the regular medical floor. She is currently sitting up in bed. Awake and alert in no acute distress. She is a poor historian. She is maintaining O2 saturations in the 90s on 3 L/m per nasal cannula. Afebrile. Hemodynamically stable. White count 9.7. Hemoglobin 11.7. Sodium 137. Potassium 4.8. BUN 11. Creatinine 0.63. AST 32. ALT 22. Troponin negative times one. ProBNP 659. She was initiated on DuoNeb inhalations, Pulmicort inhalations, IV Solu-Medrol. She is also initiated on IV diuretics. Currently in a -1.7 L balance On 12/26/2021 patient seen in follow-up on the medical surgical floor. She states she is breathing easier, she been treated for acute exacerbation of diastolic heart failure, she remains on diuretics, she is in -3700 and the net fluid balance over the last 24 hours, she is on 3 L of oxygen pulse ox 98%. Patient has a history of severe aortic stenosis and was previously considered for TAVR. She was evaluated on outpatient basis by cardiothoracic surgeon, and the patient decided not to undergo aortic valve replacement at that time. Cognitive chest discomfort. She is resting in bed, does not appear to be in any acute distress, patient has been afebrile, but pressures been stable. Today's labs are still pending. Urinalysis suggest possible urinary tract infection, patient has a chronic indwelling Humphrey catheter in place, with chronic urinary incontinence, urine culture has been sent and pending at this time. The patient is seen today 12/27/2021 in follow-up on the regular medical floor. She is currently resting quite comfortably in bed. Awake and alert in no acute distress. She is on 3 L nasal cannula with O2 saturations in the 90s. She does have home oxygen. Chest x-ray is showing improvement. Urine culture positive for gram-negative bacilli. Sodium 141. Potassium 3.8. Bicarb 40. BUN 20. Creatinine 0.70. Blood glucose 142. She is continued on bronchodilators, oral diuretics. Objective - Vital Signs Vital signs: Vital Signs Temp 98.1 F 12/27/21 07:58 Pulse 86 12/27/21 08:19 Resp 15 12/27/21 02:00 BP 114/71 12/27/21 07:58 Pulse Ox 100 12/27/21 07:58 Intake & Output 12/26/21 12/27/21 12/27/21 18:59 06:59 18:59 Intake Total 777 Output Total 3000 Balance 777 -3000 Intake: Oral 777 Output: Urine 3000 Other: Voiding Method Indwelling Catheter Indwelling Catheter - Exam GENERAL EXAM: Alert, 66-year-old female patient, resting comfortably in bed, 3 L of oxygen pulse ox of 99%, comfortable in no apparent distress. HEAD: Normocephalic/atraumatic. EYES: Normal reaction of pupils, equal size. Conjunctiva pink, sclera white. NOSE: Clear with pink turbinates. THROAT: No erythema or exudates. NECK: No masses, no JVD, no thyroid enlargement, no adenopathy. CHEST: No chest wall deformity. Symmetrical expansion. LUNGS: Equal air entry with bibasilar crackles CVS: Regular rate and rhythm, normal S1 and S2, no gallops, no murmurs, no rubs ABDOMEN: Soft, nontender. No hepatosplenomegaly, normal bowel sounds, no guarding or rigidity. EXTREMITIES: No clubbing, no edema, no cyanosis, 2+ pulses and upper and lower extremities. MUSCULOSKELETAL: Muscle strength and tone normal. SPINE: No scoliosis or deformity SKIN: No rashes CENTRAL NERVOUS SYSTEM: No focal deficits, tone is normal in all 4 extremities. PSYCHIATRIC: Alert and oriented -3. Appropriate affect. Intact judgment and insight. - Labs CBC & Chem 7: 12/26/21 11:26 12/27/21 06:01 Labs: Abnormal Lab Results - Last 24 Hours (Table) 12/26/21 12/26/21 12/26/21 Range/Units 11:24 11:26 11:26 RBC 3.73 L (4.10-5.20) X 10*6/uL Hgb 10.5 L (12.0-15.0) g/dL Hct 36.2 L (37.2-46.3) % MCV 97.1 H (80.0-97.0) fL MCHC 29.0 L (32.0-37.0) g/dL RDW 14.7 H (11.5-14.5) % Neutrophils # 7.97 H (1.80-7.70) X 10*3/uL Lymphocytes # 0.60 L (0.90-5.00) X 10*3/uL Eosinophils # 0.02 L (0.04-0.35) X 10*3/uL Chloride 95 L (98-107) mmol/L Carbon Dioxide 38 H (22-30) mmol/L BUN 20 H (7-17) mg/dL Glucose 184 H (74-99) mg/dL POC Glucose (mg/dL) 188 H (75-99) mg/dL 12/26/21 12/26/21 12/26/21 Range/Units 16:33 20:02 23:26 RBC (4.10-5.20) X 10*6/uL Hgb (12.0-15.0) g/dL Hct (37.2-46.3) % MCV (80.0-97.0) fL MCHC (32.0-37.0) g/dL RDW (11.5-14.5) % Neutrophils # (1.80-7.70) X 10*3/uL Lymphocytes # (0.90-5.00) X 10*3/uL Eosinophils # (0.04-0.35) X 10*3/uL Chloride (98-107) mmol/L Carbon Dioxide (22-30) mmol/L BUN (7-17) mg/dL Glucose (74-99) mg/dL POC Glucose (mg/dL) 351 H 481 H 340 H (75-99) mg/dL 12/27/21 12/27/21 12/27/21 Range/Units 02:15 06:01 06:36 RBC (4.10-5.20) X 10*6/uL Hgb (12.0-15.0) g/dL Hct (37.2-46.3) % MCV (80.0-97.0) fL MCHC (32.0-37.0) g/dL RDW (11.5-14.5) % Neutrophils # (1.80-7.70) X 10*3/uL Lymphocytes # (0.90-5.00) X 10*3/uL Eosinophils # (0.04-0.35) X 10*3/uL Chloride (98-107) mmol/L Carbon Dioxide 40 H (22-30) mmol/L BUN 20 H (7-17) mg/dL Glucose 142 H (74-99) mg/dL POC Glucose (mg/dL) 208 H 130 H (75-99) mg/dL Microbiology - Last 24 Hours (Table) 12/25/21 13:31 Urine Culture - Preliminary Urine,Voided Gram Neg Bacilli Assessment and Plan Assessment: 1 Acute on chronic hypoxemic respiratory failure secondary to acute exacerbation of diastolic congestive heart failure, follow-up chest x-ray showing improvement 2 Severe aortic stenosis and had previously been considered for possible TAVR 3 Chronic hypoxemic respiratory failure secondary to above 4 Lifelong nonsmoker 5 History of olivopontinocerebellar demyelination with previous MRI showing central pontine myelin lysis and obvious demyelination and degeneration in the cerebellum and portions of the brain stem 6 Diabetes mellitus 7 Chronic urinary incontinence with previous chronic indwelling Humphrey catheter 8 Hypertension 9 Hyperlipidemia 10 Obstructive sleep apnea maintained on CPAP 11 History of bowel resection with colostomy 12 History of chronic urinary incontinence and chronic Humphrey catheter with previous frequent UTIs, urine positive for gram-negative bacilli here 13 History of sarcoidosis 14 Poor overall functional performance based on the above-mentioned multiple comorbidities, requires electric wheelchair Plan: The patient was seen and evaluated Labs reviewed Continue DuoNeb inhalations, Pulmicort inhalation Has home oxygen Home once cleared by medicine We will continue to follow I have personally seen and examined the patient, performed the documentation and the assessment and plan as written. Number of minutes spent on the visit: 10.
--- NOTE | 2021-12-27 12:39 | P.PN ---
Subjective This is a pleasant 66-year-old female past medical history significant for hypertension, severe stenosis, COPD, type 2 diabetes. She follows in the office with Dr. Valero. We have been asked to see in consultation for congestive heart failure and aortic stenosis. Patient presents to the emergency department with complaints of shortness of breath and productive cough. She is seen and examined at bedside. She is not sure why she is in the hospital. She denies any shortness of breath, cough, chest pain, lightheadedness, dizziness, syncope or near syncope. She has no complaints. She is no lower extremity edema. Denies symptoms of orthopnea and PND. She states she sleeps with one pillow. Appears to be a poor historian. Patient was evaluated outpatient by cardiothoracic surgeon for her aortic valve, possible TAVR, and she decided not to undergo aortic valve replacement at that time. DIAGNOSTICS * EKG reveals sinus rhythm, heart rate 91, nonspecific ST ST-T wave abnormalities. No acute ischemia noted. Artifact noted. * Telemetry tracings indicate sinus mechanism HR 80s-low 100s * Cardiac catheterization 04/30/2021 revealed severe aortic stenosis and normal ascending aorta and normal coronary arteries * MURIEL 03/2021 revealed bicuspid aortic valve, severe restriction in leaflet mobility, severe aortic stenosis, left atrium appears mildly enlarged * 2D Echo in the office 05/2020 revealed EF 55%, moderate severe aortic stenosis with a peak/mean gradient of 34 mmHg/18 mmHg. 12/27/2021 Patient seen at bedside, no acute distress. She states her breathing has improved. She is lying comfortably in bed in no acute distress. No shortness of breath. No chest pain. She denies any symptoms of orthopnea or PND. Patient is now more open to TAVR discussion. Patient with negative fluid balance -3700 over the past 24 hours. Chest Xray with improvement in suggestive pulmonary edema. She currently denies aspirin 80 mg daily, atorvastatin 20 mg daily, Lasix 20 mg twice a day PO. PHYSICAL EXAMINATION Blood pressure 114/71 heart rate 88, afebrile, saturations 100% on 3 L nasal cannula CONSTITUTIONAL: No apparent distress. HEENT: Head is normocephalic. Pupils are equal, round. Sclerae anicteric. Mucous membranes of the mouth are moist. No JVD. No carotid bruit. CHEST EXAMINATION: Lungs are clear to auscultation. No chest wall tenderness is noted on palpation or with deep breathing. HEART EXAMINATION: Regular rate and rhythm. S1, S2 heard. Systolic ejection murmur at apex. ABDOMEN: Soft, nontender. Positive bowel sounds. EXTREMITIES: 2+ peripheral pulses, no lower extremity edema and no calf tenderness. NEUROLOGIC EXAMINATION: Patient is awake, alert and oriented x3. ASSESSMENT Symptoms of shortness of breath Severe bicuspid aortic valve stenosis Hypertension Dyslipidemia Type 2 Diabetes Obesity BMI 43 Obstructive sleep apnea with home CPAP use PLAN Patient does not appear to be in acute heart failure on exam PO Lasix 20mg BID Continue home cardiac medications Recommend follow up with Dr. Valero and further discussion of aortic valve replacement as an outpatient. Patient today is more open to discussion. Discharge per primary team. No changes from a cardiology perspective. Nurse practitioner note has been reviewed by physician. Signing provider agrees with the documented findings, assessment, and plan of care. Objective - Vital Signs Vital signs: Vital Signs Temp 98.1 F 12/27/21 07:58 Pulse 86 12/27/21 08:19 Resp 15 12/27/21 02:00 BP 114/71 12/27/21 07:58 Pulse Ox 100 12/27/21 07:58 Intake & Output 12/26/21 12/27/21 12/27/21 18:59 06:59 18:59 Intake Total 777 Output Total 3000 Balance 777 -3000 Intake: Oral 777 Output: Urine 3000 Other: Voiding Method Indwelling Catheter Indwelling Catheter - Labs CBC & Chem 7: 12/26/21 11:26 12/27/21 06:01 Labs: Abnormal Lab Results - Last 24 Hours (Table) 12/26/21 12/26/21 12/26/21 Range/Units 11:24 11:26 11:26 RBC 3.73 L (4.10-5.20) X 10*6/uL Hgb 10.5 L (12.0-15.0) g/dL Hct 36.2 L (37.2-46.3) % MCV 97.1 H (80.0-97.0) fL MCHC 29.0 L (32.0-37.0) g/dL RDW 14.7 H (11.5-14.5) % Neutrophils # 7.97 H (1.80-7.70) X 10*3/uL Lymphocytes # 0.60 L (0.90-5.00) X 10*3/uL Eosinophils # 0.02 L (0.04-0.35) X 10*3/uL Chloride 95 L (98-107) mmol/L Carbon Dioxide 38 H (22-30) mmol/L BUN 20 H (7-17) mg/dL Glucose 184 H (74-99) mg/dL POC Glucose (mg/dL) 188 H (75-99) mg/dL 12/26/21 12/26/21 12/26/21 Range/Units 16:33 20:02 23:26 RBC (4.10-5.20) X 10*6/uL Hgb (12.0-15.0) g/dL Hct (37.2-46.3) % MCV (80.0-97.0) fL MCHC (32.0-37.0) g/dL RDW (11.5-14.5) % Neutrophils # (1.80-7.70) X 10*3/uL Lymphocytes # (0.90-5.00) X 10*3/uL Eosinophils # (0.04-0.35) X 10*3/uL Chloride (98-107) mmol/L Carbon Dioxide (22-30) mmol/L BUN (7-17) mg/dL Glucose (74-99) mg/dL POC Glucose (mg/dL) 351 H 481 H 340 H (75-99) mg/dL 12/27/21 12/27/21 12/27/21 Range/Units 02:15 06:01 06:36 RBC (4.10-5.20) X 10*6/uL Hgb (12.0-15.0) g/dL Hct (37.2-46.3) % MCV (80.0-97.0) fL MCHC (32.0-37.0) g/dL RDW (11.5-14.5) % Neutrophils # (1.80-7.70) X 10*3/uL Lymphocytes # (0.90-5.00) X 10*3/uL Eosinophils # (0.04-0.35) X 10*3/uL Chloride (98-107) mmol/L Carbon Dioxide 40 H (22-30) mmol/L BUN 20 H (7-17) mg/dL Glucose 142 H (74-99) mg/dL POC Glucose (mg/dL) 208 H 130 H (75-99) mg/dL Microbiology - Last 24 Hours (Table) 12/25/21 13:31 Urine Culture - Preliminary Urine,Voided Gram Neg Bacilli
--- NOTE | 2021-12-27 12:51 | P.PN ---
Subjective Seen and examined. Patient is comfortable she's laying flat she is not short of breath she is on 3 L nasal cannula which is her baseline. No respiratory GI complaints. Objective - Vital Signs Vital signs: Vital Signs Temp 98.1 F 12/27/21 07:58 Pulse 96 12/27/21 11:44 Resp 15 12/27/21 02:00 BP 114/71 12/27/21 07:58 Pulse Ox 100 12/27/21 07:58 Intake & Output 12/26/21 12/27/21 12/27/21 18:59 06:59 18:59 Intake Total 777 Output Total 3000 Balance 777 -3000 Intake: Oral 777 Output: Urine 3000 Other: Voiding Method Indwelling Catheter Indwelling Catheter Indwelling Catheter - Exam Gen. patient is awake alert oriented 3 Respiratory normal air entry with very minimal wheezing appreciated minimal rhonchi. Currently on 3 L nasal cannula Abdomen soft, nontender, ostomy full of stool Cardio normal S1/S2 Extremities no pitting edema noted Genitourinary Humphrey catheter noted with some sediment to be changed today Abdomen some suprapubic tenderness minimal Psychiatry patient is in good spirits, good mood - Labs CBC & Chem 7: 12/26/21 11:26 12/27/21 06:01 Labs: Abnormal Lab Results - Last 24 Hours (Table) 12/26/21 12/26/21 12/26/21 Range/Units 11:26 16:33 20:02 RBC 3.73 L (4.10-5.20) X 10*6/uL Hgb 10.5 L (12.0-15.0) g/dL Hct 36.2 L (37.2-46.3) % MCV 97.1 H (80.0-97.0) fL MCHC 29.0 L (32.0-37.0) g/dL RDW 14.7 H (11.5-14.5) % Neutrophils # 7.97 H (1.80-7.70) X 10*3/uL Lymphocytes # 0.60 L (0.90-5.00) X 10*3/uL Eosinophils # 0.02 L (0.04-0.35) X 10*3/uL Carbon Dioxide (22-30) mmol/L BUN (7-17) mg/dL Glucose (74-99) mg/dL POC Glucose (mg/dL) 351 H 481 H (75-99) mg/dL 12/26/21 12/27/21 12/27/21 Range/Units 23:26 02:15 06:01 RBC (4.10-5.20) X 10*6/uL Hgb (12.0-15.0) g/dL Hct (37.2-46.3) % MCV (80.0-97.0) fL MCHC (32.0-37.0) g/dL RDW (11.5-14.5) % Neutrophils # (1.80-7.70) X 10*3/uL Lymphocytes # (0.90-5.00) X 10*3/uL Eosinophils # (0.04-0.35) X 10*3/uL Carbon Dioxide 40 H (22-30) mmol/L BUN 20 H (7-17) mg/dL Glucose 142 H (74-99) mg/dL POC Glucose (mg/dL) 340 H 208 H (75-99) mg/dL 12/27/21 12/27/21 Range/Units 06:36 11:14 RBC (4.10-5.20) X 10*6/uL Hgb (12.0-15.0) g/dL Hct (37.2-46.3) % MCV (80.0-97.0) fL MCHC (32.0-37.0) g/dL RDW (11.5-14.5) % Neutrophils # (1.80-7.70) X 10*3/uL Lymphocytes # (0.90-5.00) X 10*3/uL Eosinophils # (0.04-0.35) X 10*3/uL Carbon Dioxide (22-30) mmol/L BUN (7-17) mg/dL Glucose (74-99) mg/dL POC Glucose (mg/dL) 130 H 231 H (75-99) mg/dL Microbiology - Last 24 Hours (Table) 12/25/21 13:31 Urine Culture - Preliminary Urine,Voided Gram Neg Bacilli Assessment and Plan Plan: #Acute hypoxic respiratory failure Patient's creatinine 3 L nasal cannula which is her baseline #Acute on chronic diastolic CHF exacerbation In setting of severe aortic stenosis Patient has been diuresed with IV Lasix with -3.7 L fluid balance Patient changed to by mouth Lasix Patient is able to lay flat without any shortness of breath DISCHARGE home from cardiology standpoint #Acute exacerbation of COPD and acute bronchitis Clinically improved on baseline oxygen, Your by pulmonary for discharge, steroids discontinued #Severe aortic stenosis Symptomatic Patient is open to have a further evaluation for TAVR She will follow-up with cardiology #Chronic urinary incontinence with chronic indwelling Humphrey catheter Urine culture with gram-negative bacilli, patient is nonseptic nontoxic appearing, likely colon is a patient #Status post colostomy #Obesity stage III #Type 2 diabetes mellitus #History of central pontine myelolysis Disposition: Clear by pulmonary and cardiology for discharge. She is on baseline oxygen supplementation per home dose. We'll discharge patient home today.
--- NOTE | 2021-12-27 13:00 | P.DS ---
Providers Date of admission: 12/27/21 08:01 Attending physician: Yana Wise DO Consults: 12/24/21 14:50 Consult Physician Routine Consulting Provider: Smith Bishop Consult Reason/Comments: chf, aortic stenosis Do you want consulting provider notified?: Yes 12/24/21 15:24 Consult Physician Urgent Consulting Provider: Al Mcginnis Reason/Comments: dyspnea Do you want consulting provider notified?: Yes Primary care physician: Zita Barboza Hospital Course: Date of admission: 12/24/21 Date of discharge: 12/27/21 Consultants: Cardiology Pulmonology Discharge diagnoses: Acute on chronic diastolic CHF exacerbation Severe aortic stenosis Acute exacerbation of COPD/acute bronchitis Diabetes mellitus with hyperglycemia Obesity Chronic indwelling Humphrey cath Disposition: Home with home healthcare services. To continue Lasix 20 minutes by mouth daily. Monitor daily weight low salt diet. Follow-up with cardiology as indicated for discussion for aortic stenosis treatment. Repeat BMP and magnesium in 34 days Reason for admission Patient is a 66-year-old female with a past medical history significant for olivopontocellular degeneration with previous MRI showing central pontine, diabetes mellitus, urinary incontinence with a chronic indwelling catheter, colostomy, aortic valve stenosis, hyperlipidemia, essential hypertension, morbid obesity that presents to the hospital complaining of worsening shortness of breath. Patient does use 3 L at home and also been complaining of mild phlegm production which is very minimal and clear. She denies any episodes of fever, c hills, nausea or vomiting. Family is present at bedside and was able to provide some additional information. Patient does complain of mild urinary symptoms including including dysuria, urgency, frequency. At bedside Humphrey catheter was examined showing some sediment. Vital signs reviewed afebrile, normotensive and saturating 99% on 3 L. CBC reviewed no leukocytosis, H&H stable. Chest x-ray reviewed showing possible pulmonary edema/CHF subtle pulmonary infiltrates cannot be excluded. Hospital course Patient was evaluated by consultants. Patient was started on IV Lasix, strict input and output, low salt diet, bronchodilators steroids antibiotics. Overall improved and her oxygen was down to 3 L which is her baseline. Patient was cleared by all consultants and discharged home. Patient follow-up with cardiology as indicated above. Plan - Discharge Summary Discharge Rx Participant: Yes New Discharge Prescriptions: New Furosemide [Lasix] 20 mg PO DAILY #15 tab Continue Atorvastatin Calcium [Lipitor] 20 mg PO DAILY [place]enton-3 Fatty Acids/Fish Oil [Fish Oil 1,000 mg Softgel] 1 cap PO DAILY Aspirin 81 mg PO DAILY Budesonide [Pulmicort] 0.5 mg INHALATION RT-BID Oxybutynin Xl [Ditropan XL] 5 mg PO DAILY Albuterol Nebulized [Ventolin Nebulized] 2.5 mg INHALATION RT-QID metFORMIN HCL [Glucophage] 1,000 mg PO BID Multivitamins, Thera [Multivitamin (formulary)] 1 tab PO DAILY Psyllium Husk (with Sugar) [Metamucil Powder] 1 tbsp PO DAILY Lactulose [Cephulac] 10 gm PO BID PRN PRN Reason: Constipation Imipramine [Tofranil] 25 mg PO BID #0 PARoxetine [Paxil] 20 mg PO DAILY Insulin Aspart [NovoLOG Flexpen] See Protocol SQ AC-TID Insulin Glargine,Hum.rec.anlog [Lantus Solostar Pen] 50 unit SQ HS Magnesium Citrate 148 ml PO DAILY PRN PRN Reason: Constipation L.acidoph,Paracasei, B.lactis [Probiotic] 1 cap PO DAILY Cholecalciferol [Vitamin D3 (25 Mcg = 1000 Iu)] 25 mcg PO DAILY Discharge Medication List Aspirin 81 mg PO DAILY 11/10/15 [History] Atorvastatin Calcium [Lipitor] 20 mg PO DAILY 11/10/15 [History] Budesonide [Pulmicort] 0.5 mg INHALATION RT-BID 11/10/15 [History] [place]enton-3 Fatty Acids/Fish Oil [Fish Oil 1,000 mg Softgel] 1 cap PO DAILY 11/10/15 [History] Albuterol Nebulized [Ventolin Nebulized] 2.5 mg INHALATION RT-QID 11/11/15 [History] Oxybutynin Xl [Ditropan XL] 5 mg PO DAILY 11/11/15 [History] metFORMIN HCL [Glucophage] 1,000 mg PO BID 10/08/19 [History] Lactulose [Cephulac] 10 gm PO BID PRN 07/20/20 [History] Multivitamins, Thera [Multivitamin (formulary)] 1 tab PO DAILY 07/20/20 [History] Psyllium Husk (with Sugar) [Metamucil Powder] 1 tbsp PO DAILY 07/20/20 [History] Imipramine [Tofranil] 25 mg PO BID #0 07/22/20 [Rx] Magnesium Citrate 148 ml PO DAILY PRN 04/25/21 [History] PARoxetine [Paxil] 20 mg PO DAILY 04/25/21 [History] Cholecalciferol [Vitamin D3 (25 Mcg = 1000 Iu)] 25 mcg PO DAILY 12/24/21 [History] Insulin Aspart [NovoLOG Flexpen] See Protocol SQ AC-TID 12/24/21 [History] Insulin Glargine,Hum.rec.anlog [Lantus Solostar Pen] 50 unit SQ HS 12/24/21 [History] L.acidoph,Paracasei, B.lactis [Probiotic] 1 cap PO DAILY 12/24/21 [History] Furosemide [Lasix] 20 mg PO DAILY #15 tab 12/27/21 [Rx] Follow up Appointment(s)/Referral(s): [facility], [NON-STAFF] - As Needed ([facility] will call you to set up your in home nursing and aide visits. ) Zita Barboza MD [Primary Care Provider] - 1-2 days Gamaliel Valero MD [STAFF PHYSICIAN] - 1 Week Ambulatory/Diagnostic Orders: Basic Metabolic Panel [LAB.AMB] Time Frame: 4 Days, Location: None Selected Magnesium [LAB.AMB] Location: None Selected Patient Instructions/Handouts: Aortic Stenosis (DC) Discharge Disposition: HOME WITH HOME HEALTH SERVICES
[2021-12-27 14:25] VITALS: BP 104/64; PULSE 100; TEMP 98.4
== END 2021-12-27 16:42 | disposition home health service (06) | DRG 291 ==
LOC: EC 12:40 → 6NMEDSUR 14:50 → 4SSUR 16:58 → OBSVTOIN 12-27 08:01
PROVIDERS: ADMIT Internal Medicine; ATTEND Internal Medicine
DX: I11.0 Hypertensive heart disease with heart failure (principal); I50.33 Acute on chronic diastolic (congestive) heart failure; J96.21 Acute and chronic respiratory failure with hypoxia; J44.0 Chronic obstructive pulmonary disease with (acute) lower respiratory infection; Z68.41 Body mass index [BMI] 40.0-44.9, adult; G23.8 Other specified degenerative diseases of basal ganglia; Q23.1 Congenital insufficiency of aortic valve; N13.30 Unspecified hydronephrosis; Z43.3 Encounter for attention to colostomy; E11.41 Type 2 diabetes mellitus with diabetic mononeuropathy; E11.65 Type 2 diabetes mellitus with hyperglycemia; D64.9 Anemia, unspecified; D86.0 Sarcoidosis of lung; Z79.4 Long term (current) use of insulin; E66.01 Morbid (severe) obesity due to excess calories; J20.9 Acute bronchitis, unspecified; E78.5 Hyperlipidemia, unspecified; G47.33 Obstructive sleep apnea (adult) (pediatric); F32.A Depression, unspecified; N31.9 Neuromuscular dysfunction of bladder, unspecified; R26.9 Unspecified abnormalities of gait and mobility; K59.09 Other constipation; N39.498 Other specified urinary incontinence; Z99.81 Dependence on supplemental oxygen; Z79.82 Long term (current) use of aspirin; Z79.51 Long term (current) use of inhaled steroids; Z79.84 Long term (current) use of oral hypoglycemic drugs; Z79.899 Other long term (current) drug therapy; Z86.19 Personal history of other infectious and parasitic diseases; Z87.19 Personal history of other diseases of the digestive system; Z86.14 Personal history of Methicillin resistant Staphylococcus aureus infection; Z87.440 Personal history of urinary (tract) infections; Z90.49 Acquired absence of other specified parts of digestive tract; Z99.3 Dependence on wheelchair; Z98.51 Tubal ligation status; Z87.39 Personal history of other diseases of the musculoskeletal system and connective tissue; Z22.39 Carrier of other specified bacterial diseases; Z98.890 Other specified postprocedural states; Z71.3 Dietary counseling and surveillance; Z83.3 Family history of diabetes mellitus; Z82.49 Family history of ischemic heart disease and other diseases of the circulatory system; Z84.1 Family history of disorders of kidney and ureter; Z80.0 Family history of malignant neoplasm of digestive organs
CPT/HCPCS: 36415; 71045; 71046; 80048; 80053; 81001; 83605; 83880; 84484; 85025; 85610; 85730; 87077; 87086; 87186; 93005; 94640; 94760; 96374; 99285

== ENCOUNTER → 2022-01-17 | Outpatient (CLI) | payer MEDICARE ==
[2022-01-17 12:06] LABS: ALT 20 U/L (4-34); AST 30 U/L (14-36); African American GFR (CKD) >90 (>60 ml/min/1.73 sqM); Albumin 3.8 g/dL (3.5-5.0); Albumin/Globulin Ratio 1.2; Alkaline Phosphatase 87 U/L (38-126); Anion Gap 5 mmol/L; Blood Urea Nitrogen 10 mg/dL (7-17); Calcium 8.7 mg/dL (8.4-10.2); Carbon Dioxide 34 mmol/L (22-30); Chloride 99 mmol/L (98-107); Globulin 3.2 g/dL; Glucose 172 mg/dL (74-99); Non-African American GFR(CKD) >90 (>60 ml/min/1.73 sqM); Potassium 4.1 mmol/L (3.5-5.1); Sodium 138 mmol/L (137-145); Total Bilirubin 0.3 mg/dL (0.2-1.3)
[2022-01-17 12:16] LABS: Magnesium 1.7 mg/dL (1.6-2.3)
[2022-01-17 12:29] LABS: Bilirubin,Unconjugated 0.2 mg/dL (0.0-1.1)
[2022-01-17 12:43] LABS: INR 0.9 (<1.2); Partial Thromboplastin Time 28.1 sec (22.0-30.0); Prothrombin Time 9.8 sec (9.0-12.0)
[2022-01-17 17:56] LABS: Basophils # (A) 0.04 X 10*3/uL (0.00-0.10); Basophils % (A) 0.5 %; Eosinophils # (A) 0.22 X 10*3/uL (0.04-0.35); Eosinophils % (A) 2.8 %; HCT 35.1 % (37.2-46.3); HGB 10.4 g/dL (12.0-15.0); Immature Grans, Automated 0.4 %; Lymphocytes % (A) 12.5 %; MCH 28.7 pg (27.0-32.0); MCHC 29.6 g/dL (32.0-37.0); MCV 96.7 fL (80.0-97.0); Mean Platelet Volume 11.9 fL (9.5-12.2); Monocytes # (A) 0.55 X 10*3/uL (0.20-1.00); Monocytes % (A) 6.9 %; NRBC Per 100 WBC 0 /100 WBCS (0.0-0.0); Neutrophils # (A) 6.14 X 10*3/uL (1.80-7.70); Neutrophils % (A) 76.9 %; Platelet Count 225 X 10*3/uL (140-440); RBC 3.63 X 10*6/uL (4.10-5.20); RDW 15.2 % (11.5-14.5); WBC 7.98 X 10*3/uL (4.50-10.00)
[2022-01-17 18:25] LABS: LDL Cholesterol,Calculated 53.1 mg/dL (0.0-131.0)
--- NOTE | 2022-01-17 20:50 | CT ---
EXAMINATION TYPE: CT TAVR Planning DATE OF EXAM: 01/17/2022 HISTORY: Nonrheumatic aortic valve replacement. CT DLP: 2867.7 mGycm Automated Exposure Control for Dose Reduction was Utilized. CONTRAST: CT scan of the chest, abdomen and pelvis is performed with IV Contrast, patient injected with 125ml m L of Isovue 370. MIP reconstruction images were generated on an independent workstation and reviewed. COMPARISON: CT dated 07/20/2020 TECHNIQUE: Helical imaging obtained through the chest, abdomen and pelvis during arterial phase daryn daphne administration of radiographic contrast intravenously. FINDINGS: See report from [facility] regarding preprocedural planning CHEST: Lower Neck and Thyroid: No significant findings Lungs: Bilateral lower lobar subsegmental atelectasis/areas of consolidation, please correlate clinic ally for infection. Follow-up to resolution is advised. Mosaic perfusion of the lungs. Please correla te with pulmonary function tests. Central Airway: No significant findings Pleura: Minimal left pleural fluid. Pulmonary Arteries: No significant findings Heart and Pericardium: Suspected aortic and mitral valve calcifications. Lymph Nodes: No pathologically enlarged lymph nodes. Mediastinum & Esophagus: No significant findings ABDOMEN/PELVIS: Please note arterial phase of the imaging limits detailed evaluation of the solid abdominal organs. Liver: Enlarged liver with signs of hepatic steatosis. Spleen: No significant findings Kidneys: Bilateral renal cysts without gross suspicious features, yet suboptimally assessed. Adrenal Glands: Stable bilateral adrenal lesions measuring up to 3 cm on the left side and 1.4 cm on the right side. Pancreas: No significant findings Gallbladder: No significant findings Bowel and Mesentery: Left lower quadrant colostomy with rectal stump seen in the pelvis demonstrating hyperdensity within, possibly representing barium. Lymph Nodes: No pathologically enlarged Urinary Bladder: Humphrey catheter is seen within. Thickened superior wall of the urinary bladder, under lying urothelial lesion cannot be excluded. Recommend correlation with urinalysis results including c ytology. Pelvic Organs: Suspected calcified uterine fibroid. No gross adnexal mass. Other: No ascites. Left lower quadrant parastomal fat-containing hernia. Marked fatty infiltration of the right gluteal muscles. No gross aggressive bone lesion. Other Lines/Tubes/Devices/Hardware: None IMPRESSION: Preoperative CT demonstrating multiple incidental findings and recommendations as detailed above.
== END | disposition home or self-care (01) ==
LOC: LABWHC1 09:53
PROVIDERS: ATTEND Thoracic Surgery (Cardiothoracic Vascular Surgery)
DX: Z01.812 Encounter for preprocedural laboratory examination (principal); E87.8 Other disorders of electrolyte and fluid balance, not elsewhere classified; Z79.899 Other long term (current) drug therapy; R58 Hemorrhage, not elsewhere classified; E07.9 Disorder of thyroid, unspecified; R35.0 Frequency of micturition; Z79.01 Long term (current) use of anticoagulants; I35.0 Nonrheumatic aortic (valve) stenosis; E11.9 Type 2 diabetes mellitus without complications; N28.9 Disorder of kidney and ureter, unspecified; E78.5 Hyperlipidemia, unspecified; I35.1 Nonrheumatic aortic (valve) insufficiency
CPT/HCPCS: 94150; 83880; 80061; 80053; 84443; 82248; 83735; 85025; 85610; 85730; 83036; 71275; 36415 ×2; 74174; 93005; Q9967; 87086

== ENCOUNTER 2022-02-14 13:09 | Inpatient (IN) | payer MEDICARE ==
[2022-02-14 14:15] LABS: VBG PH 7.35 (7.31-7.41)
--- NOTE | 2022-02-14 14:15 | XR ---
EXAMINATION TYPE: XR chest 1V portable DATE OF EXAM: 02/14/2022 COMPARISON: 12/27/2021 HISTORY: Shortness of breath TECHNIQUE: Single frontal view of the chest is obtained. FINDINGS: Diffuse interstitial pattern. There likely is a small amount of fluid within the minor fis sure and small bilateral effusions. Heart mildly prominent. No pneumothorax. Arthropathy of the AC henna ints. IMPRESSION: Correlate for CHF. Otherwise consider interstitial pneumonia or atypical pneumonia.
[2022-02-14 14:23] LABS: Basophils % (A) 0 %; Eosinophils # (A) 0.2 k/uL (0-0.7); Eosinophils % (A) 2 %; HCT 35.5 % (34.0-46.0); HGB 10.7 gm/dL (11.4-16.0); Hypochromasia Marked; Lymphocytes # (A) 0.8 k/uL (1.0-4.8); Lymphocytes % (A) 9 %; MCH 29.3 pg (25.0-35.0); MCHC 30.1 g/dL (31.0-37.0); MCV 97.4 fL (80.0-100.0); Mean Platelet Volume 9.1; Monocytes # (A) 0.4 k/uL (0-1.0); Monocytes % (A) 5 %; Neutrophils # (A) 7.4 k/uL (1.3-7.7); Neutrophils % (A) 83 %; Platelet Count 260 k/uL (150-450); RBC 3.64 m/uL (3.80-5.40); RDW 15.4 % (11.5-15.5)
[2022-02-14 14:25] LABS: ALT 20 U/L (4-34); AST 33 U/L (14-36); African American GFR (CKD) >90 (>60 ml/min/1.73 sqM); Albumin 3.6 g/dL (3.5-5.0); Alkaline Phosphatase 83 U/L (38-126); Anion Gap 3 mmol/L; Blood Urea Nitrogen 11 mg/dL (7-17); Calcium 8.2 mg/dL (8.4-10.2); Carbon Dioxide 35 mmol/L (22-30); Chloride 99 mmol/L (98-107); Glucose 104 mg/dL (74-99); Magnesium 1.8 mg/dL (1.6-2.3); Non-African American GFR(CKD) 87 (>60 ml/min/1.73 sqM); Potassium 4.7 mmol/L (3.5-5.1); Sodium 137 mmol/L (137-145); Total Bilirubin 0.2 mg/dL (0.2-1.3); Total Protein 6.8 g/dL (6.3-8.2)
--- NOTE | 2022-02-14 14:25 | ED ---
General Adult HPI - General Source: patient, EMS, RN notes reviewed, old records reviewed Mode of arrival: EMS Limitations: altered mental status <Al Johnston - Last Filed: 02/14/22 14:34> <Ethel Bartlett - Last Filed: 02/14/22 16:05> - General Chief complaint: Altered Mental Status Stated complaint: Altered Mental Status Time Seen by Provider: 02/14/22 13:15 - History of Present Illness Initial comments: 66-year-old female presenting with dyspnea and altered mental status. Patient is able to contribute some to the history. But is not a good historian. 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 Patient has history of oxygen dependent respiratory failure, COPD and CHF. She also has neurodegenerative disorder. No focal findings according to EMS. The change was gradual over the past several days. No reported fever. No vomiting. No pain complaints. (Al Johnston) - Related Data Home Medications Medication Instructions Recorded Confirmed Aspirin 81 mg PO DAILY 11/10/15 02/14/22 Atorvastatin Calcium [Lipitor] 20 mg PO DAILY 11/10/15 02/14/22 Budesonide [Pulmicort] 0.5 mg INHALATION RT-BID 11/10/15 02/14/22 [place]-3 Fatty Acids/Fish Oil [Fish 1 cap PO DAILY 11/10/15 02/14/22 Oil 1,000 mg Softgel] Albuterol Nebulized [Ventolin 2.5 mg INHALATION RT-QID 11/11/15 02/14/22 Nebulized] Oxybutynin Xl [Ditropan XL] 5 mg PO DAILY 11/11/15 02/14/22 metFORMIN HCL [Glucophage] 1,000 mg PO BID 10/08/19 02/14/22 Lactulose [Cephulac] 10 gm PO BID PRN 07/20/20 02/14/22 Multivitamins, Thera [Multivitamin 1 tab PO DAILY 07/20/20 02/14/22 (formulary)] Psyllium Husk (with Sugar) 1 tbsp PO DAILY 07/20/20 02/14/22 [Metamucil Powder] Magnesium Citrate 148 ml PO DAILY PRN 04/25/21 02/14/22 PARoxetine [Paxil] 20 mg PO DAILY 04/25/21 02/14/22 Cholecalciferol [Vitamin D3 (25 25 mcg PO DAILY 12/24/21 02/14/22 Mcg = 1000 Iu)] Insulin Aspart [NovoLOG Flexpen] See Protocol SQ AC-TID 12/24/21 02/14/22 Insulin Glargine,Hum.rec.anlog 50 unit SQ HS 12/24/21 02/14/22 [Lantus Solostar Pen] L.acidoph,Paracasei, B.lactis 1 cap PO DAILY 12/24/21 02/14/22 [Probiotic] Previous Rx's Medication Instructions Recorded Imipramine [Tofranil] 25 mg PO BID #0 07/22/20 Furosemide [Lasix] 20 mg PO DAILY #15 tab 12/27/21 Allergies Allergy/AdvReac Type Severity Reaction Status Date / Time No Known Allergies Allergy Verified 02/14/22 15:41 Review of Systems ROS Other: All systems not noted in ROS Statement are negative. <Al Johnston - Last Filed: 02/14/22 14:34> ROS Other: All systems not noted in ROS Statement are negative. <Ethel Bartlett - Last Filed: 02/14/22 16:05> ROS Statement: Those systems with pertinent positive or pertinent negative responses have been documented in the HPI. 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,wheel chair depenedent, IDDM type II, neuropathy R leg, sarcoidosis/lungs, bronchitis, aortic stenosis/murmur, past chronic constipation, colostomy, occasional incontinence of stool, lower GI bleed, chronic urinary incontinence/neurogenic bladder/chronic Humphrey/frequent urinary tract infections/sepsis, anemia, gait dysfunction-pt is lifted to electric w/c, obstructive sleep apnea with Cpap use, chronic hydronephrosis of the kidneys, colostomy History of Any Multi-Drug Resistant Organisms: C-DIFF, MRSA Date of last positivie culture/infection: 11/2015 MDRO Source:: c-diff, mrsa 2011 in blood Past Surgical History: Bowel Resection, Tubal Ligation Additional Past Surgical History / Comment(s): 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, EGD, colonoscopies, bronchoscopies x3, carpal tunnel release-laterallity unknown, D&C, Past Anesthesia/Blood Transfusion Reactions: No Reported Reaction Past Psychological History: Depression Smoking Status: Never smoker Past Alcohol Use History: None Reported Past Drug Use History: None Reported - Past Family History Father Family Medical History: Cancer Additional Family Medical History / Comment(s): from pancreatic cancer Mother Family Medical History: Congestive Heart Failure (CHF), Diabetes Mellitus, Dialysis Additional Family Medical History / Comment(s): from CHF <Al Johnston N - Last Filed: 02/14/22 14:34> General Exam Limitations: altered mental status General appearance: lethargic Head exam: Present: atraumatic, normocephalic Eye exam: Present: other (Bilateral conjunctivitis, left pupil is 5 mm, right pupil is 3 mm.) ENT exam: Present: mucous membranes dry Neck exam: Present: normal inspection. Absent: tenderness Respiratory exam: Present: respiratory distress, wheezes, rales, accessory muscle use, decreased breath sounds Cardiovascular Exam: Present: regular rate, normal rhythm GI/Abdominal exam: Present: soft. Absent: distended, tenderness, guarding Extremities exam: Present: normal capillary refill, pedal edema Neurological exam: Present: alert. Absent: motor sensory deficit (Patient has decreased strength throughout but does not have any focal findings.) Skin exam: Present: warm, dry, intact. Absent: cyanosis, diaphoretic <Al Johnston N - Last Filed: 02/14/22 14:34> Course Vital Signs 02/14/22 02/14/22 02/14/22 13:20 13:31 14:19 Temperature 98.7 F 98.7 F Pulse Rate 93 86 96 Respiratory 22 20 24 Rate Blood Pressure 117/76 120/81 131/76 O2 Sat by Pulse 96 97 97 Oximetry 02/14/22 02/14/22 15:29 15:47 Temperature Pulse Rate 92 93 Respiratory Rate Blood Pressure O2 Sat by Pulse Oximetry EKG Findings - EKG Comments: EKG Findings:: EKG: Sinus rhythm significant artifact limiting assessment, rate of 94, [place] interval 144, QRS duration 102, QTC 434 <Al Johnston Sameer - Last Filed: 02/14/22 14:34> Medical Decision Making - Lab Data Result diagrams: 02/14/22 13:54 02/14/22 13:54 <Al Johnston Sameer - Last Filed: 02/14/22 14:34> - Lab Data Result diagrams: 02/14/22 13:54 02/14/22 13:54 <Ethel Bartlett - Last Filed: 02/14/22 16:05> - Medical Decision Making I have evaluated the patient myself. Patient's presents with confusion and increased respiratory insufficiency. Patient seems extremely weak with increased respirations. May benefit from BiPAP at this time and therefore bipap is ordered. Patient has CHF exacerbation and UTI. Treated with antibiotics and 60 mg of Lasix. Urine was pansensitive on last culture therefore Rocepin given. Spoke with the patient's who agreed with admission. Spoke with Dr. Watts who agreed to admit the patient (Ethel Bartlett) - Lab Data Lab Results 02/14/22 02/14/22 02/14/22 Range/Units 13:54 13:54 13:54 WBC 9.0 (3.8-10.6) k/uL RBC 3.64 L (3.80-5.40) m/uL Hgb 10.7 L (11.4-16.0) gm/dL Hct 35.5 (34.0-46.0) % MCV 97.4 (80.0-100.0) fL MCH 29.3 (25.0-35.0) pg MCHC 30.1 L (31.0-37.0) g/dL RDW 15.4 (11.5-15.5) % Plt Count 260 (150-450) k/uL MPV 9.1 Neutrophils % 83 % Lymphocytes % 9 % Monocytes % 5 % Eosinophils % 2 % Basophils % 0 % Neutrophils # 7.4 (1.3-7.7) k/uL Lymphocytes # 0.8 L (1.0-4.8) k/uL Monocytes # 0.4 (0-1.0) k/uL Eosinophils # 0.2 (0-0.7) k/uL Basophils # 0.0 (0-0.2) k/uL Hypochromasia Marked PT 10.2 (9.0-12.0) sec INR 0.9 (<1.2) APTT 30.6 H (22.0-30.0) sec VBG pH (7.31-7.41) VBG pCO2 (37-51) mmHg VBG HCO3 (24-28) mmol/L Sodium 137 (137-145) mmol/L Potassium 4.7 (3.5-5.1) mmol/L Chloride 99 (98-107) mmol/L Carbon Dioxide 35 H (22-30) mmol/L Anion Gap 3 mmol/L BUN 11 (7-17) mg/dL Creatinine 0.74 (0.52-1.04) mg/dL Est GFR (CKD-EPI)AfAm >90 (>60 ml/min/1.73 sqM) Est GFR (CKD-EPI)NonAf 87 (>60 ml/min/1.73 sqM) Glucose 104 H (74-99) mg/dL Plasma Lactic Acid George (0.7-2.0) mmol/L Calcium 8.2 L (8.4-10.2) mg/dL Magnesium 1.8 (1.6-2.3) mg/dL Total Bilirubin 0.2 (0.2-1.3) mg/dL AST 33 (14-36) U/L ALT 20 (4-34) U/L Alkaline Phosphatase 83 (38-126) U/L Troponin I (0.000-0.034) ng/mL NT-Pro-B Natriuret Pep pg/mL Total Protein 6.8 (6.3-8.2) g/dL Albumin 3.6 (3.5-5.0) g/dL Urine Color Urine Appearance (Clear) Urine pH (5.0-8.0) Ur Specific Hanna (1.001-1.035) Urine Protein (Negative) Urine Glucose (UA) (Negative) Urine Ketones (Negative) Urine Blood (Negative) Urine Nitrite (Negative) Urine Bilirubin (Negative) Urine Urobilinogen (<2.0) mg/dL Ur Leukocyte Esterase (Negative) Urine RBC (0-5) /hpf Urine WBC (0-5) /hpf Urine WBC Clumps (None) /hpf Ur Squamous Epith Cells (0-4) /hpf Urine Bacteria (None) /hpf Urine Mucus (None) /hpf 02/14/22 02/14/22 02/14/22 Range/Units 13:54 13:54 13:54 WBC (3.8-10.6) k/uL RBC (3.80-5.40) m/uL Hgb (11.4-16.0) gm/dL Hct (34.0-46.0) % MCV (80.0-100.0) fL MCH (25.0-35.0) pg MCHC (31.0-37.0) g/dL RDW (11.5-15.5) % Plt Count (150-450) k/uL MPV Neutrophils % % Lymphocytes % % Monocytes % % Eosinophils % % Basophils % % Neutrophils # (1.3-7.7) k/uL Lymphocytes # (1.0-4.8) k/uL Monocytes # (0-1.0) k/uL Eosinophils # (0-0.7) k/uL Basophils # (0-0.2) k/uL Hypochromasia PT (9.0-12.0) sec INR (<1.2) APTT (22.0-30.0) sec VBG pH (7.31-7.41) VBG pCO2 (37-51) mmHg VBG HCO3 (24-28) mmol/L Sodium (137-145) mmol/L Potassium (3.5-5.1) mmol/L Chloride (98-107) mmol/L Carbon Dioxide (22-30) mmol/L Anion Gap mmol/L BUN (7-17) mg/dL Creatinine (0.52-1.04) mg/dL Est GFR (CKD-EPI)AfAm (>60 ml/min/1.73 sqM) Est GFR (CKD-EPI)NonAf (>60 ml/min/1.73 sqM) Glucose (74-99) mg/dL Plasma Lactic Acid George 1.0 (0.7-2.0) mmol/L Calcium (8.4-10.2) mg/dL Magnesium (1.6-2.3) mg/dL Total Bilirubin (0.2-1.3) mg/dL AST (14-36) U/L ALT (4-34) U/L Alkaline Phosphatase (38-126) U/L Troponin I 0.037 H* (0.000-0.034) ng/mL NT-Pro-B Natriuret Pep 1600 pg/mL Total Protein (6.3-8.2) g/dL Albumin (3.5-5.0) g/dL Urine Color Urine Appearance (Clear) Urine pH (5.0-8.0) Ur Specific Hanna (1.001-1.035) Urine Protein (Negative) Urine Glucose (UA) (Negative) Urine Ketones (Negative) Urine Blood (Negative) Urine Nitrite (Negative) Urine Bilirubin (Negative) Urine Urobilinogen (<2.0) mg/dL Ur Leukocyte Esterase (Negative) Urine RBC (0-5) /hpf Urine WBC (0-5) /hpf Urine WBC Clumps (None) /hpf Ur Squamous Epith Cells (0-4) /hpf Urine Bacteria (None) /hpf Urine Mucus (None) /hpf 02/14/22 02/14/22 Range/Units 13:54 14:24 WBC (3.8-10.6) k/uL RBC (3.80-5.40) m/uL Hgb (11.4-16.0) gm/dL Hct (34.0-46.0) % MCV (80.0-100.0) fL MCH (25.0-35.0) pg MCHC (31.0-37.0) g/dL RDW (11.5-15.5) % Plt Count (150-450) k/uL MPV Neutrophils % % Lymphocytes % % Monocytes % % Eosinophils % % Basophils % % Neutrophils # (1.3-7.7) k/uL Lymphocytes # (1.0-4.8) k/uL Monocytes # (0-1.0) k/uL Eosinophils # (0-0.7) k/uL Basophils # (0-0.2) k/uL Hypochromasia PT (9.0-12.0) sec INR (<1.2) APTT (22.0-30.0) sec VBG pH 7.35 (7.31-7.41) VBG pCO2 59 H (37-51) mmHg VBG HCO3 32 H (24-28) mmol/L Sodium (137-145) mmol/L Potassium (3.5-5.1) mmol/L Chloride (98-107) mmol/L Carbon Dioxide (22-30) mmol/L Anion Gap mmol/L BUN (7-17) mg/dL Creatinine (0.52-1.04) mg/dL Est GFR (CKD-EPI)AfAm (>60 ml/min/1.73 sqM) Est GFR (CKD-EPI)NonAf (>60 ml/min/1.73 sqM) Glucose (74-99) mg/dL Plasma Lactic Acid George (0.7-2.0) mmol/L Calcium (8.4-10.2) mg/dL Magnesium (1.6-2.3) mg/dL Total Bilirubin (0.2-1.3) mg/dL AST (14-36) U/L ALT (4-34) U/L Alkaline Phosphatase (38-126) U/L Troponin I (0.000-0.034) ng/mL NT-Pro-B Natriuret Pep pg/mL Total Protein (6.3-8.2) g/dL Albumin (3.5-5.0) g/dL Urine Color Yellow Urine Appearance Turbid H (Clear) Urine pH 6.5 (5.0-8.0) Ur Specific Hanna 1.019 (1.001-1.035) Urine Protein 2+ H (Negative) Urine Glucose (UA) Negative (Negative) Urine Ketones Trace H (Negative) Urine Blood Large H (Negative) Urine Nitrite Negative (Negative) Urine Bilirubin Negative (Negative) Urine Urobilinogen 2.0 (<2.0) mg/dL Ur Leukocyte Esterase Large H (Negative) Urine RBC >182 H (0-5) /hpf Urine WBC >182 H (0-5) /hpf Urine WBC Clumps Many H (None) /hpf Ur Squamous Epith Cells <1 (0-4) /hpf Urine Bacteria Moderate H (None) /hpf Urine Mucus Occasional H (None) /hpf Disposition <Al Johnston - Last Filed: 02/14/22 14:34> Is patient prescribed a controlled substance at d/c from ED?: No Time of Disposition: 15:57 Decision to Admit Reason: Admit from EC Decision Date: 02/14/22 Decision Time: 15:57 <Ethel Bartlett - Last Filed: 02/14/22 16:05> Clinical Impression: Complicated UTI (urinary tract infection), CHF (congestive heart failure), Acute encephalopathy Disposition: ADMITTED IP TO THIS HOSP Condition: Serious Referrals: Zita Barboza MD [Primary Care Provider] - 1-2 days
[2022-02-14 14:29] LABS: INR 0.9 (<1.2); Partial Thromboplastin Time 30.6 sec (22.0-30.0); Prothrombin Time 10.2 sec (9.0-12.0)
[2022-02-14] MEDS ORDERED: IPRATROPIUM-ALBUTEROL 3 ML NEB INHALATION STA (14:34)
[2022-02-14] MEDS ORDERED: ALBUTEROL NEBULIZED 2.5 MG/3 ML INHALATION STA (14:34)
[2022-02-14 14:46] LABS: Appearance,Urine Turbid (Clear); Bacteria,Urine Moderate /hpf; Bilirubin,Urine Negative (Negative); Blood,Urine Large (Negative); Color,Urine Yellow; Glucose,Urine (UA) Negative (Negative); Ketones,Urine Trace (Negative); Leukocyte Esterase,Urine Large (Negative); Mucus,Urine Occasional /hpf; Nitrite,Urine Negative (Negative); PH, Urine 6.5 (5.0-8.0); Protein,Urine 2+ (Negative); RBC,Urine >182 /hpf (0-5); Specific Gravity,Urine 1.019 (1.001-1.035); Squamous Epithelial Cell,Urine <1 /hpf (0-4); WBC,Urine >182 /hpf (0-5)
--- NOTE | 2022-02-14 15:28 | CT ---
EXAMINATION TYPE: CT brain wo con DATE OF EXAM: 02/14/2022 COMPARISON: CT dated 09/07/2016 HISTORY: weakness CT DLP: 1129.4 mGycm Automated exposure control for dose reduction was used. TECHNIQUE: CT scan of the brain is performed without IV contrast administration. FINDINGS: Severe volume loss of the cerebellum and brainstem, appreciated previously. Underlying neurodegenerat sivakumar disease can't be excluded. Recommend clinical correlation and neurology consultation. Chronic small right thalamic infarct. Bilateral cerebral white matter hypodensities likely representi ng chronic microvascular ischemic changes. Arterial atherosclerotic calcifications. No acute intracranial hemorrhage. No gross acute cortical infarct. No midline shift or herniation. Un remarkable basal cisterns, sella and CP angles. No gross space-occupying lesion, vasogenic edema or m ass effect. Unremarkable orbits. Clear visualized paranasal sinuses. Opacified right inferior mastoid air cells. No aggressive bone lesion. IMPRESSION: No acute intracranial hemorrhage or gross acute cortical infarct. Chronic findings as detailed above.
[2022-02-14] MEDS ORDERED: cefTRIAXone IN SWFI 1,000 MG/10 ML SYRINGE IVP STA (15:52)
[2022-02-14] MEDS ORDERED: FUROSEMIDE 10 MG/ML 10 ML VIAL IV STA (15:52)
[2022-02-14] MEDS ORDERED: NALOXONE 0.4 MG/ML 1 ML VIAL IV PRN (15:57)
[2022-02-14 20:55] LABS: Glucose,Whole Blood 137 mg/dL (75-99)
[2022-02-14] MEDS ORDERED: INSULIN DETEMIR (LEVEMIR) 100 UNIT/ML SYR SQ ONE (21:45)
--- NOTE | 2022-02-15 01:36 | P.HPIM ---
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 Patient cannot provide any history at this time. According to her at bedside patient has been having altered mentation for the past 3 days and has not been eating. Patient is also having worsening dyspnea. She was brought to the hospital by EMS. Patient has been afebrile. No episodes of vomiting. No diarrhea. No complaints of chest pain. Patient does have previous history of Klebsiella pneumonia urinary tract infection. Chest x-ray showed correlate for CHF. Otherwise consider interstitial pneumonia or atypical pneumonia. CT head showed no acute intracranial hemorrhage or gross acute cortical infarct. EKG showed sinus rhythm. Laboratory data showed WBC 9.0 hemoglobin 10.7 and platelets 260 Lymphocytes 0.8 Sodium 137 potassium 4.7 chloride 99 bicarb is 35 BUN 11 and creatinine 0.74 Calcium 8.2, radiation 1.8 and troponin 0.037, 0.043 and proBNP 1600 Urinalysis showed turbid with 2+ protein trace ketones large blood nitrite negative leukocyte esterase large and elevated RBCs and WBCs. Review of Systems Complete review of systems could not be obtained from the patient. 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,wheel chair depenedent, IDDM type II, neuropathy R leg, sarcoidosis/lungs, bronchitis, aortic stenosis/murmur, past chronic constipation, colostomy, occasional incontinence of stool, lower GI bleed, chronic urinary incontinence/neurogenic bladder/chronic Humphrey/frequent urinary tract infections/sepsis, anemia, gait dysfunction-pt is lifted to electric w/c, obstructive sleep apnea with Cpap use, chronic hydronephrosis of the kidneys, colostomy History of Any Multi-Drug Resistant Organisms: C-DIFF, MRSA Date of last positivie culture/infection: 11/2015 MDRO Source:: c-diff, mrsa 2011 in blood Past Surgical History: Bowel Resection, Tubal Ligation Additional Past Surgical History / Comment(s): 2015 sigmoid volvulus with bowel resection/colostomy, EGD, colonoscopies, bronchoscopies x3, carpal tunnel release-laterallity unknown, D&C, Past Anesthesia/Blood Transfusion Reactions: No Reported Reaction Past Psychological History: Depression Smoking Status: Never smoker Past Alcohol Use History: None Reported Past Drug Use History: None Reported - Past Family History Father Family Medical History: Cancer Additional Family Medical History / Comment(s): from pancreatic cancer Mother Family Medical History: Congestive Heart Failure (CHF), Diabetes Mellitus, Dialysis Additional Family Medical History / Comment(s): from CHF Medications and Allergies Home Medications Medication Instructions Recorded Confirmed Type Aspirin 81 mg PO DAILY 11/10/15 02/14/22 History Atorvastatin Calcium [Lipitor] 20 mg PO DAILY 11/10/15 02/14/22 History Budesonide [Pulmicort] 0.5 mg INHALATION RT-BID 11/10/15 02/14/22 History [place]-3 Fatty Acids/Fish Oil [Fish 1 cap PO DAILY 11/10/15 02/14/22 History Oil 1,000 mg Softgel] Albuterol Nebulized [Ventolin 2.5 mg INHALATION RT-QID 11/11/15 02/14/22 History Nebulized] Oxybutynin Xl [Ditropan XL] 5 mg PO DAILY 11/11/15 02/14/22 History metFORMIN HCL [Glucophage] 1,000 mg PO BID 10/08/19 02/14/22 History Lactulose [Cephulac] 10 gm PO BID PRN 07/20/20 02/14/22 History Multivitamins, Thera [Multivitamin 1 tab PO DAILY 07/20/20 02/14/22 History (formulary)] Psyllium Husk (with Sugar) 1 tbsp PO DAILY 07/20/20 02/14/22 History [Metamucil Powder] Imipramine [Tofranil] 25 mg PO BID #0 07/22/20 02/14/22 Rx Magnesium Citrate 148 ml PO DAILY PRN 04/25/21 02/14/22 History PARoxetine [Paxil] 20 mg PO DAILY 04/25/21 02/14/22 History Cholecalciferol [Vitamin D3 (25 25 mcg PO DAILY 12/24/21 02/14/22 History Mcg = 1000 Iu)] Insulin Aspart [NovoLOG Flexpen] See Protocol SQ AC-TID 12/24/21 02/14/22 History Insulin Glargine,Hum.rec.anlog 50 unit SQ HS 12/24/21 02/14/22 History [Lantus Solostar Pen] L.acidoph,Paracasei, B.lactis 1 cap PO DAILY 12/24/21 02/14/22 History [Probiotic] Furosemide [Lasix] 20 mg PO DAILY #15 tab 12/27/21 02/14/22 Rx Allergies Allergy/AdvReac Type Severity Reaction Status Date / Time No Known Allergies Allergy Verified 02/14/22 15:41 Physical Exam Vitals: Vital Signs Temp Pulse Pulse Resp BP BP Pulse Ox 02/14/22 20:48 02/14/22 18:57 97.2 F L 93 18 119/68 96 02/14/22 18:15 02/14/22 17:57 98.4 F 94 24 132/65 96 02/14/22 17:25 93 22 117/71 96 02/14/22 15:47 93 02/14/22 15:29 92 02/14/22 14:19 96 24 131/76 97 02/14/22 13:31 98.7 F 86 20 120/81 97 02/14/22 13:20 98.7 F 93 22 117/76 96 FiO2 02/14/22 20:48 35 02/14/22 18:57 35 02/14/22 18:15 60 02/14/22 17:57 02/14/22 17:25 02/14/22 15:47 02/14/22 15:29 02/14/22 14:19 02/14/22 13:31 02/14/22 13:20 Intake and Output 02/14/22 02/14/22 02/14/22 06:59 14:59 22:59 Output Total 350 Balance -350 Output: Urine 350 Other: Weight 136.078 kg PHYSICAL EXAMINATION: Patient is lying in the bed comfortably, no acute distress, awake alert but disoriented.. Morbidly obese. HEENT: Normocephalic. Neck is supple. Pupils reactive. Nostrils clear. Oral cavity is moist. Neck reveals no JVD, carotid bruits, or thyromegaly. CHEST EXAMINATION: Trachea is central. Symmetrical expansion. Bibasilar diminished air entry. No wheezing or rhonchi.. CARDIAC: Normal S1, S2 with no gallops. Systolic murmur present. ABDOMEN: Soft. Bowel sounds present. Nontender. No organomegaly. No abdominal bruits. Extremities: reveal no edema. No clubbing or cyanosis Neurologically awake, alert, confused and disoriented. No gross focal neurolo gical deficit. Skin: No rash or skin lesions. Psychiatric: Coperative. Could not be assessed.. Musculoskeletal: No joint swelling or deformity. Results CBC & Chem 7: 02/14/22 13:54 02/14/22 13:54 Labs: Abnormal Lab Results - Last 24 Hours (Table) 02/14/22 02/14/22 02/14/22 Range/Units 13:54 13:54 13:54 RBC 3.64 L (3.80-5.40) m/uL Hgb 10.7 L (11.4-16.0) gm/dL MCHC 30.1 L (31.0-37.0) g/dL Lymphocytes # 0.8 L (1.0-4.8) k/uL APTT 30.6 H (22.0-30.0) sec VBG pCO2 (37-51) mmHg VBG HCO3 (24-28) mmol/L Carbon Dioxide 35 H (22-30) mmol/L Glucose 104 H (74-99) mg/dL POC Glucose (mg/dL) (75-99) mg/dL Calcium 8.2 L (8.4-10.2) mg/dL Troponin I (0.000-0.034) ng/mL Urine Appearance (Clear) Urine Protein (Negative) Urine Ketones (Negative) Urine Blood (Negative) Ur Leukocyte Esterase (Negative) Urine RBC (0-5) /hpf Urine WBC (0-5) /hpf Urine WBC Clumps (None) /hpf Urine Bacteria (None) /hpf Urine Mucus (None) /hpf 06/09/22 06/09/22 06/09/22 Range/Units 13:54 13:54 14:24 RBC (3.80-5.40) m/uL Hgb (11.4-16.0) gm/dL MCHC (31.0-37.0) g/dL Lymphocytes # (1.0-4.8) k/uL APTT (22.0-30.0) sec VBG pCO2 59 H (37-51) mmHg VBG HCO3 32 H (24-28) mmol/L Carbon Dioxide (22-30) mmol/L Glucose (74-99) mg/dL POC Glucose (mg/dL) (75-99) mg/dL Calcium (8.4-10.2) mg/dL Troponin I 0.037 H* (0.000-0.034) ng/mL Urine Appearance Turbid H (Clear) Urine Protein 2+ H (Negative) Urine Ketones Trace H (Negative) Urine Blood Large H (Negative) Ur Leukocyte Esterase Large H (Negative) Urine RBC >182 H (0-5) /hpf Urine WBC >182 H (0-5) /hpf Urine WBC Clumps Many H (None) /hpf Urine Bacteria Moderate H (None) /hpf Urine Mucus Occasional H (None) /hpf 02/14/22 02/14/22 02/14/22 Range/Units 18:17 20:03 20:36 RBC (3.80-5.40) m/uL Hgb (11.4-16.0) gm/dL MCHC (31.0-37.0) g/dL Lymphocytes # (1.0-4.8) k/uL APTT (22.0-30.0) sec VBG pCO2 (37-51) mmHg VBG HCO3 (24-28) mmol/L Carbon Dioxide (22-30) mmol/L Glucose (74-99) mg/dL POC Glucose (mg/dL) 137 H (75-99) mg/dL Calcium (8.4-10.2) mg/dL Troponin I 0.043 H* 0.048 H* (0.000-0.034) ng/mL Urine Appearance (Clear) Urine Protein (Negative) Urine Ketones (Negative) Urine Blood (Negative) Ur Leukocyte Esterase (Negative) Urine RBC (0-5) /hpf Urine WBC (0-5) /hpf Urine WBC Clumps (None) /hpf Urine Bacteria (None) /hpf Urine Mucus (None) /hpf Thrombosis Risk Factor Assmnt - DVT/VTE Prophylaxis DVT/VTE Prophylaxis: Pharmacologic Prophylaxis ordered Assessment and Plan Assessment: Altered mental status due to metabolic encephalopathy Acute complicated urinary tract infection with chronic indwelling Humphrey catheter. 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 DVT prophylaxis with Lovenox subcu Plan: Patient will be continued on antibiotics in the form of ceftriaxone and follow- up urine culture report. Patient was given a dose of IV Lasix in the ER. Continue with BiPAP as tolerated. Duo nebs and follow-up culture reports. Cardiology will be consulted due to severe aortic stenosis and CHF. GI and DVT prophylaxis. Prognosis is guarded at this time. Discussed with her at bedside in detail. Time with Patient: Greater than 30
[2022-02-15] MEDS ORDERED: DEXTROSE 50% SYRINGE 50 ML IVP ONE (06:08)
[2022-02-15 06:26] LABS: Glucose,Whole Blood 145 mg/dL (75-99)
[2022-02-15 06:26] LABS: Glucose,Whole Blood 63 mg/dL (75-99)
[2022-02-15] MEDS: INSULIN ASPART (NovoLOG) 100 UNIT/ML VIAL SQ SCH ×4 (06:35→20:45)
[2022-02-15] MEDS: BUDESONIDE 0.5 MG/2 ML NEBU INHALATION SCH ×2 (07:11→20:47)
[2022-02-15] MEDS: ALBUTEROL NEBULIZED 2.5 MG/3 ML INHALATION SCH ×4 (07:11→20:47)
[2022-02-15 07:40] LABS: ABG Base Excess 16.9 mmol/L; ABG Oxygen Saturation 99.2 % (94-97); ABG PCO2 64 mmHg (35-45); ABG PH 7.42 (7.35-7.45); ABG PO2 113 mmHg (83-108); ABG TCO2 43 mmol/L (19-24); Allen Test Performed? Yes
[2022-02-15 07:42] LABS: ABG HCO3 41 mmol/L (21-25)
[2022-02-15 07:56] LABS: Basophils # (A) 0.1 k/uL (0-0.2); Basophils % (A) 1 %; Eosinophils # (A) 0.2 k/uL (0-0.7); Eosinophils % (A) 3 %; HCT 33.8 % (34.0-46.0); Hypochromasia Marked; Lymphocytes # (A) 0.6 k/uL (1.0-4.8); Lymphocytes % (A) 9 %; MCH 28.7 pg (25.0-35.0); MCHC 29.5 g/dL (31.0-37.0); MCV 97.5 fL (80.0-100.0); Mean Platelet Volume 9.3; Monocytes # (A) 0.5 k/uL (0-1.0); Monocytes % (A) 7 %; Neutrophils # (A) 5.5 k/uL (1.3-7.7); Neutrophils % (A) 79 %; Platelet Count 231 k/uL (150-450); RBC 3.47 m/uL (3.80-5.40)
[2022-02-15 08:10] LABS: African American GFR (CKD) >90 (>60 ml/min/1.73 sqM); Blood Urea Nitrogen 10 mg/dL (7-17); Calcium 8.3 mg/dL (8.4-10.2); Chloride 97 mmol/L (98-107); Glucose 105 mg/dL (74-99); Non-African American GFR(CKD) 84 (>60 ml/min/1.73 sqM); Potassium 3.9 mmol/L (3.5-5.1); Sodium 142 mmol/L (137-145)
[2022-02-15 08:16] LABS: Anion Gap 4 mmol/L
[2022-02-15 08:26] LABS: Carbon Dioxide 41 mmol/L (22-30)
[2022-02-15] MEDS: ENOXAPARIN 40 MG/0.4 ML SYRINGE SQ SCH (08:47)
[2022-02-15] MEDS: ATORVASTATIN 20 MG TAB PO SCH (08:48)
[2022-02-15] MEDS: ASPIRIN 81 MG PO SCH (08:48)
[2022-02-15] MEDS: IMIPRAMINE 25 MG TAB PO SCH ×2 (08:48→20:17)
[2022-02-15] MEDS ORDERED: FUROSEMIDE 10 MG/ML 2 ML VIAL IV SCH (09:00)
--- NOTE | 2022-02-15 10:56 | CT ---
EXAMINATION TYPE: CT brain wo con DATE OF EXAM: 02/15/2022 COMPARISON: 02/14/2022 HISTORY: 66 year-old female follow-up, left pupil unreactive TECHNIQUE: Examination was done in axial plane without intravenous contrast. Coronal and sagittal r econstructions performed. CT DLP: 1188.4 mGycm Automated exposure control for dose reduction was used. FINDINGS: Similar mild periventricular white matter hypodensities. Old bilateral basal ganglionic lacunar infar cts redemonstrated. Somewhat hypodense appearance to the superior peña on both sides may be skull base artifact from beam hardening, refer to axial image 20. Otherwise, there is no evidence of acute intracranial hemorrhage, acute ischemic changes, mass, mass -effect, or extra-axial fluid collection. There is no effacement of cerebral sulci or basal subarach noid cisterns. There is no hydrocephalus. There is no midline shift. Cheatham-white matter distinction is preserved. Paranasal sinuses and mastoid air cells well pneumatized. Orbits and globes are intact. IMPRESSION: Somewhat hypodense appearance to the bilateral peña on axial image 20 may reflect skull base artifact . MRI can exclude evolving acute brainstem infarct. No evidence for acute intracranial hemorrhage or midline shift.
[2022-02-15 12:15] LABS: Glucose,Whole Blood 86 mg/dL (75-99)
--- NOTE | 2022-02-15 12:36 | P.CNNES ---
History of Present Illness Consult date: 02/15/22 Requesting physician: Ayleen Cheng Reason for Consult: anisocoria History of Present Illness: This is a 66-year-old woman with medical history of Maurer-Ponto cerebellar degeneration, diabetes mellitus, neuropathy, GI bleed, obstructive sleep apnea on CPAP, hypertension, hyperlipidemia who presented to the emergency department because of dyspnea and altered mental status. History was obtained from patient's who is at bedside. Per the patient nurse neurology team is consulted for unequal pupils and left pupil is dilated and non-reactive according to nurse. According to nurse earlier today they checked the pupils are they are unequal and result got repeat CT head for concern for stroke. I spoke with the who is at bedside and he stated that the unequal pupils are old since patient had diagnosis of Olivopontocerebellar degeneration. Denies of any visual disturbance, new focal weakness or any new neurological deficits. Patient has history of Ffstz-Utnba-npixyfclhs degeneration who is wheel chair- bound and has diagnosis about 17 years-ago over at [facility]. She also has history of underlying cognitive impairment/dementia. Some of the patient's home medication consist of: aspirin 81 mg daily, Lipitor 20 mg daily at bedtime, Paxil Some of the workup in our facility during this hospital visit consisted of: Patient blood sugar has been in the range of 60's (63) to 140's. Carbon dioxide is 41 Plasma lactic acid vein is 1.0. Urinalysis seem possible suggestive of urinary tract infection. Blood gases is a the ABG 7.42, pCO2 64, PaO2 is 113, bicarb is 41. Initial CT of the head which is reported as no acute intracranial hemorrhage or gross acute cortical infarct. I personally reviewed the CT of the head and I felt the patient has hypo-attenuation over the pontine region which could be artifact as well as patient has lacunar that are old over the right thalamus in the left internal capsule/basal ganglia region. Patient has also atrophy over the olivopontocerebellar region. Because of the vision abnormality in which the patient had the unequal pupils and one of the pupils was a dilated unreactive patient had a repeat CT of the head ordered by the primary team which is reported as somewhat hypodense appearance of bilateral peña on axial image 20 may reflect skull base artifact. MRI can exclude evolving acute brainstem infarct. No evidence for acute intracranial hemorrhage or midline shift. I personally reviewed the CT of the head and I felt was not different compared to the CT of the day earlier. Review of Systems Review of system: The 12 point system was reviewed and apparent positive and negative per HPI. 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,wheel chair depenedent, IDDM type II, neuropathy R leg, sarcoidosis/lungs, bronchitis, aortic stenosis/murmur, past chronic constipation, colostomy, occasional incontinence of stool, lower GI bleed, chronic urinary incontinence/neurogenic bladder/chronic Humphrey/frequent urinary tract infections/sepsis, anemia, gait dy sfunction-pt is lifted to electric w/c, obstructive sleep apnea with Cpap use, chronic hydronephrosis of the kidneys, colostomy History of Any Multi-Drug Resistant Organisms: C-DIFF, MRSA Date of last positivie culture/infection: 11/2015 MDRO Source:: c-diff, mrsa 2011 in blood Past Surgical History: Bowel Resection, Tubal Ligation Additional Past Surgical History / Comment(s): 2015 sigmoid volvulus with bowel resection/colostomy, EGD, colonoscopies, bronchoscopies x3, carpal tunnel release-laterallity unknown, D&C, Past Anesthesia/Blood Transfusion Reactions: No Reported Reaction Past Psychological History: Depression Smoking Status: Never smoker Past Alcohol Use History: None Reported Past Drug Use History: None Reported - Past Family History Father Family Medical History: Cancer Additional Family Medical History / Comment(s): from pancreatic cancer Mother Family Medical History: Congestive Heart Failure (CHF), Diabetes Mellitus, Dialysis Additional Family Medical History / Comment(s): from CHF Medications and Allergies Home Medications Medication Instructions Recorded Confirmed Type Aspirin 81 mg PO DAILY 11/10/15 02/14/22 History Atorvastatin Calcium [Lipitor] 20 mg PO DAILY 11/10/15 02/14/22 History Budesonide [Pulmicort] 0.5 mg INHALATION RT-BID 11/10/15 02/14/22 History [place]-3 Fatty Acids/Fish Oil [Fish 1 cap PO DAILY 11/10/15 02/14/22 History Oil 1,000 mg Softgel] Albuterol Nebulized [Ventolin 2.5 mg INHALATION RT-QID 11/11/15 02/14/22 History Nebulized] Oxybutynin Xl [Ditropan XL] 5 mg PO DAILY 11/11/15 02/14/22 History metFORMIN HCL [Glucophage] 1,000 mg PO BID 10/08/19 02/14/22 History Lactulose [Cephulac] 10 gm PO BID PRN 07/20/20 02/14/22 History Multivitamins, Thera [Multivitamin 1 tab PO DAILY 07/20/20 02/14/22 History (formulary)] Psyllium Husk (with Sugar) 1 tbsp PO DAILY 07/20/20 02/14/22 History [Metamucil Powder] Imipramine [Tofranil] 25 mg PO BID #0 07/22/20 02/14/22 Rx Magnesium Citrate 148 ml PO DAILY PRN 04/25/21 02/14/22 History PARoxetine [Paxil] 20 mg PO DAILY 04/25/21 02/14/22 History Cholecalciferol [Vitamin D3 (25 25 mcg PO DAILY 12/24/21 02/14/22 History Mcg = 1000 Iu)] Insulin Aspart [NovoLOG Flexpen] See Protocol SQ AC-TID 12/24/21 02/14/22 History Insulin Glargine,Hum.rec.anlog 50 unit SQ HS 12/24/21 02/14/22 History [Lantus Solostar Pen] L.acidoph,Paracasei, B.lactis 1 cap PO DAILY 12/24/21 02/14/22 History [Probiotic] Furosemide [Lasix] 20 mg PO DAILY #15 tab 12/27/21 02/14/22 Rx Allergies Allergy/AdvReac Type Severity Reaction Status Date / Time No Known Allergies Allergy Verified 02/14/22 15:41 Physical Examination - Vital Signs Vital Signs: Vital Signs Temp Pulse Pulse Resp BP BP Pulse Ox 02/15/22 11:25 90 02/15/22 11:15 97 02/15/22 10:10 02/15/22 08:00 99.2 F 91 16 113/63 97 02/15/22 07:29 87 02/15/22 07:11 87 93 L 02/15/22 04:06 02/15/22 04:00 98.5 F 91 16 130/68 96 02/15/22 02:00 92 24 02/15/22 00:27 95 02/15/22 00:25 02/15/22 00:00 99.2 F 92 24 104/62 95 02/14/22 20:48 02/14/22 20:00 98.9 F 117 H 22 97/59 93 L 02/14/22 18:57 97.2 F L 93 18 119/68 96 02/14/22 18:15 02/14/22 17:57 98.4 F 94 24 132/65 96 02/14/22 17:25 93 22 117/71 96 02/14/22 15:47 93 02/14/22 15:29 92 02/14/22 14:19 96 24 131/76 97 02/14/22 13:31 98.7 F 86 20 120/81 97 02/14/22 13:20 98.7 F 93 22 117/76 96 FiO2 02/15/22 11:25 02/15/22 11:15 35 02/15/22 10:10 35 02/15/22 08:00 02/15/22 07:29 02/15/22 07:11 35 02/15/22 04:06 35 02/15/22 04:00 02/15/22 02:00 02/15/22 00:27 35 02/15/22 00:25 35 02/15/22 00:00 02/14/22 20:48 35 02/14/22 20:00 02/14/22 18:57 35 02/14/22 18:15 60 02/14/22 17:57 02/14/22 17:25 02/14/22 15:47 02/14/22 15:29 02/14/22 14:19 02/14/22 13:31 02/14/22 13:20 Intake and Output 02/14/22 02/15/22 02/15/22 22:59 06:59 14:59 Output Total 2049 1099 Balance -2049 Output: Urine 2049 1099 Other: Voiding Method Indwelling Catheter Indwelling Catheter # Bowel Movements 0 Weight 114 kg GENERAL: The patient is lying in bed and is not in acute distress. CHEST: The heart rate is regular rate rhythm. No murmurs to auscultation. LUNG: Clear to auscultation bilaterally no wheezing noted throughout. Not labored breathing. Is on BiPAP. ABDOMEN/GI: Bowel sounds present in all 4 quadrants. No tenderness to palpation throughout. NEUROLOGICAL: Higher mental function: The patient is drowsy but is awakeable to voice. Oriented to self, time. She stated she is in the hospital. Patient is following simple commands. No aphasia and no neglect. Cranial nerves: The pupils are round, right is 2-3mm and left is 4-5equal and reactive to light (event the left is reactive and assessed multiple times but is sluggishly initially) and patient's stated this is old. Visual dee are full to confrontation throughout. Extraocular movement is intact no nystagmus is noted. Facial sensation is normal to touch throughout. No facial droop. Could not asses tongue or detailed facial since on BiPAP. Does not appear dysarthric. Motor: The strength is 5 over 5 throughout upper. Right lower is spastic while left is lifting above gravity (old per ). Cerebellum: Normal finger to nose bilaterally. Sensation: Sensation is normal to touch throughout. Reflexes (right/left): 2+ throughout uppers. Results - Laboratory Findings CBC and BMP: 02/15/22 07:38 02/15/22 07:38 Abnormal Lab Findings: Abnormal Labs 02/14/22 02/14/22 02/14/22 13:54 13:54 13:54 RBC 3.64 L Hgb 10.7 L Hct MCHC 30.1 L Lymphocytes # 0.8 L APTT 30.6 H ABG pCO2 ABG pO2 ABG HCO3 ABG Total CO2 ABG O2 Saturation VBG pCO2 VBG HCO3 Chloride Carbon Dioxide 35 H Glucose 104 H POC Glucose (mg/dL) Calcium 8.2 L Troponin I Urine Appearance Urine Protein Urine Ketones Urine Blood Ur Leukocyte Esterase Urine RBC Urine WBC Urine WBC Clumps Urine Bacteria Urine Mucus 02/14/22 02/14/22 02/14/22 13:54 13:54 14:24 RBC Hgb Hct MCHC Lymphocytes # APTT ABG pCO2 ABG pO2 ABG HCO3 ABG Total CO2 ABG O2 Saturation VBG pCO2 59 H VBG HCO3 32 H Chloride Carbon Dioxide Glucose POC Glucose (mg/dL) Calcium Troponin I 0.037 H* Urine Appearance Turbid H Urine Protein 2+ H Urine Ketones Trace H Urine Blood Large H Ur Leukocyte Esterase Large H Urine RBC >182 H Urine WBC >182 H Urine WBC Clumps Many H Urine Bacteria Moderate H Urine Mucus Occasional H 02/14/22 02/14/22 02/14/22 18:17 20:03 20:36 RBC Hgb Hct MCHC Lymphocytes # APTT ABG pCO2 ABG pO2 ABG HCO3 ABG Total CO2 ABG O2 Saturation VBG pCO2 VBG HCO3 Chloride Carbon Dioxide Glucose POC Glucose (mg/dL) 137 H Calcium Troponin I 0.043 H* 0.048 H* Urine Appearance Urine Protein Urine Ketones Urine Blood Ur Leukocyte Esterase Urine RBC Urine WBC Urine WBC Clumps Urine Bacteria Urine Mucus 02/15/22 02/15/22 02/15/22 06:06 06:24 07:38 RBC 3.47 L Hgb 10.0 L Hct 33.8 L MCHC 29.5 L Lymphocytes # 0.6 L APTT ABG pCO2 ABG pO2 ABG HCO3 ABG Total CO2 ABG O2 Saturation VBG pCO2 VBG HCO3 Chloride Carbon Dioxide Glucose POC Glucose (mg/dL) 63 L 145 H Calcium Troponin I Urine Appearance Urine Protein Urine Ketones Urine Blood Ur Leukocyte Esterase Urine RBC Urine WBC Urine WBC Clumps Urine Bacteria Urine Mucus 02/15/22 02/15/22 07:38 07:38 RBC Hgb Hct MCHC Lymphocytes # APTT ABG pCO2 64 H ABG pO2 113 H ABG HCO3 41 H* ABG Total CO2 43 H ABG O2 Saturation 99.2 H VBG pCO2 VBG HCO3 Chloride 97 L Carbon Dioxide 41 H* Glucose 105 H POC Glucose (mg/dL) Calcium 8.3 L Troponin I Urine Appearance Urine Protein Urine Ketones Urine Blood Ur Leukocyte Esterase Urine RBC Urine WBC Urine WBC Clumps Urine Bacteria Urine Mucus Assessment and Plan Assessment: Altered mental status due to multifactorial: Metabolic encephalopathy and due acute hypoxic respiratory. Also component due to UTI---mentation is improving Hypodensive over the bilateral peña: Rule out any brain-stem stroke vs artifact (seems more artifact since I felt was seen on prior images and was seen in 2016) Anisocoria (left eye > right but both reactive to light): According to old Diabetes mellitus and during this hospital visit her sugar got as low as 60 Acute on chronic hypoxic respiratory failure Likely Acute urinary tract infection Vxgae-Fbeqe-fkadvltocy degeneration who is wheel chair-bound (diagnosed 17 years ago at [facility]). 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 Hypertension Congestive heart failure Moderate to severe bicuspid aortic stenosis Obstructive sleep apnea on CPAP Previous GI bleed Plan: I ordered MRI of the brain, MRA head to rule out stroke Patient had a recent hemoglobin A1c which is 7.2 on 01/17/2022 which does not need to be repeated Ordered TSH, vitamin B12, folate, ammonia level since having confusion. An EEG is not warranted at this time since this is not seizure. Patient is on her home dose of aspirin 81 and Lipitor 20 mg and for now is sufficient for secondary stroke prophylaxis. Neuro checks every 4 hours If the patient does have stroke will order the rest of the stroke workup. Pulmonary team is on board Cardiology team is consulted Please avoid hypoglycemic episodes. We'll defer rest of medical management to the primary team The plan is discussed with patient's (who is at bedside) and her nurse. Thank you for the consultation. Epifanio Mcginnis M.D. Neuro-hospitalist Time with Patient: Greater than 30
--- NOTE | 2022-02-15 13:09 | P.CNPUL ---
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 Lifelong nonsmoker. the patient also has had previous history of recurrent UTIs, and she has a permanent Humphrey catheter in place at this point in time. she has had several hospitalizations in the past. I recently saw her in the office and she was quite stable. The patient came into the hospital becausse of altered mentation and some increased shortness of breath. the patient was seen in the ED and she was given a CAT scan of the brain that showed no acute abnormalities. her chest x-ray showed some myocardial megaly and small amount of fluid in the minor fissure and small or effusions. Otherwise other acute abnormalities have been noted. the patient's labs showed a white cell count of 7 with a hemoglobin of 10 and a platelet count of 231. Blood gases showed a pH of 7.42 with a pCO2 of 64 and pO2 113 and this was done and FiO2 of 35% I believe this was done while on the BiPAP. serum bicarb is 41 with a sodium level of 142 and a potassium level of 3.9. Glucose is 105. troponins of 0.04 and a calcium level is at 8.3. urinalysis has been abnorrmal with increased white cell count and the patient has a permanent Humphrey catheter in place due to chronic urinary retention. The is been doing bladder flushes on this patient which is reduced the frequency of UTIs. Marilee most recent UTI was related to Klebsiella pneumoniae on 12/25/2021. Prior to that the patient had other gram-negative infections including infections with Enterobacter. For now, the patient is on IV fluids. She is on a BiPAP at a pressure of 12/6 cm of water with an FiO2 of 35%. In terms of antibiotics, the patient was given IV Rocephin. Review of Systems CONSTITUTIONAL: Denies any recent significant weight loss or weight gain. EYES: Denies change in vision. EARS, NOSE, MOUTH, THROAT: Denies headaches, denies sore throat. CARDIOVASCULAR: Denies chest pain, palpitations or syncopal episodes. RESPIRATORY: Positive for shortness of breath, cough, congestion no hemoptysis. GASTROINTESTINAL: Denies change in appetite, denies abdominal pain GENITOURINARY: Denies hematuria, denies infections. MUSKULOSKELETAL: Denies pain, denies swelling. INTEGUMENTARY: Denies rash, denies eczema. NEUROLOGICAL: Denies recent memory loss, no recent seizure activity. PSYCHIATRIC: Denies anxiety, denies depression. HEMATOLOGIC/LYMPHATIC: Denies anemia, denies enlarged lymph nodes. 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,wheel chair depenedent, IDDM type II, neuropathy R leg, sarcoidosis/lungs, bronchitis, aortic stenosis/murmur, past chronic constipation, colostomy, occasional incontinence of stool, lower GI bleed, chronic urinary incontinence/neurogenic bladder/chronic Humphrey/frequent urinary tract infections/sepsis, anemia, gait dysfunction-pt is lifted to electric w/c, obstructive sleep apnea with Cpap use, chronic hydronephrosis of the kidneys, colostomy History of Any Multi-Drug Resistant Organisms: C-DIFF, MRSA Date of last positivie culture/infection: 11/2015 MDRO Source:: c-diff, mrsa 2011 in blood Past Surgical History: Bowel Resection, Tubal Ligation Additional Past Surgical History / Comment(s): 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, EGD, colonoscopies, bronchoscopies x3, carpal tunnel r elease-laterallity unknown, D&C, Past Anesthesia/Blood Transfusion Reactions: No Reported Reaction Past Psychological History: Depression Smoking Status: Never smoker Past Alcohol Use History: None Reported Past Drug Use History: None Reported - Past Family History Father Family Medical History: Cancer Additional Family Medical History / Comment(s): from pancreatic cancer Mother Family Medical History: Congestive Heart Failure (CHF), Diabetes Mellitus, D ialysis Additional Family Medical History / Comment(s): from CHF Medications and Allergies Home Medications Medication Instructions Recorded Confirmed Type Aspirin 81 mg PO DAILY 11/10/15 02/14/22 History Atorvastatin Calcium [Lipitor] 20 mg PO DAILY 11/10/15 02/14/22 History Budesonide [Pulmicort] 0.5 mg INHALATION RT-BID 11/10/15 02/14/22 History [place]-3 Fatty Acids/Fish Oil [Fish 1 cap PO DAILY 11/10/15 02/14/22 History Oil 1,000 mg Softgel] Albuterol Nebulized [Ventolin 2.5 mg INHALATION RT-QID 11/11/15 02/14/22 History Nebulized] Oxybutynin Xl [Ditropan XL] 5 mg PO DAILY 11/11/15 02/14/22 History metFORMIN HCL [Glucophage] 1,000 mg PO BID 10/08/19 02/14/22 History Lactulose [Cephulac] 10 gm PO BID PRN 07/20/20 02/14/22 History Multivitamins, Thera [Multivitamin 1 tab PO DAILY 07/20/20 02/14/22 History (formulary)] Psyllium Husk (with Sugar) 1 tbsp PO DAILY 07/20/20 02/14/22 History [Metamucil Powder] Imipramine [Tofranil] 25 mg PO BID #0 07/22/20 02/14/22 Rx Magnesium Citrate 148 ml PO DAILY PRN 04/25/21 02/14/22 History PARoxetine [Paxil] 20 mg PO DAILY 04/25/21 02/14/22 History Cholecalciferol [Vitamin D3 (25 25 mcg PO DAILY 12/24/21 02/14/22 History Mcg = 1000 Iu)] Insulin Aspart [NovoLOG Flexpen] See Protocol SQ AC-TID 12/24/21 02/14/22 History Insulin Glargine,Hum.rec.anlog 50 unit SQ HS 12/24/21 02/14/22 History [Lantus Solostar Pen] L.acidoph,Paracasei, B.lactis 1 cap PO DAILY 12/24/21 02/14/22 History [Probiotic] Furosemide [Lasix] 20 mg PO DAILY #15 tab 12/27/21 02/14/22 Rx Allergies Allergy/AdvReac Type Severity Reaction Status Date / Time No Known Allergies Allergy Verified 02/14/22 15:41 Physical Exam Vitals: Vital Signs Temp Pulse Pulse Resp BP BP Pulse Ox 02/15/22 12:18 97.7 F 91 15 110/62 98 02/15/22 11:25 90 02/15/22 11:15 97 02/15/22 10:10 02/15/22 08:00 99.2 F 91 16 113/63 97 02/15/22 07:29 87 02/15/22 07:11 87 93 L 02/15/22 04:06 02/15/22 04:00 98.5 F 91 16 130/68 96 02/15/22 02:00 92 24 02/15/22 00:27 95 02/15/22 00:25 02/15/22 00:00 99.2 F 92 24 104/62 95 02/14/22 20:48 02/14/22 20:00 98.9 F 117 H 22 97/59 93 L 02/14/22 18:57 97.2 F L 93 18 119/68 96 02/14/22 18:15 02/14/22 17:57 98.4 F 94 24 132/65 96 02/14/22 17:25 93 22 117/71 96 02/14/22 15:47 93 02/14/22 15:29 92 02/14/22 14:19 96 24 131/76 97 02/14/22 13:31 98.7 F 86 20 120/81 97 02/14/22 13:20 98.7 F 93 22 117/76 96 FiO2 02/15/22 12:18 35 02/15/22 11:25 02/15/22 11:15 35 02/15/22 10:10 35 02/15/22 08:00 02/15/22 07:29 02/15/22 07:11 35 02/15/22 04:06 35 02/15/22 04:00 02/15/22 02:00 02/15/22 00:27 35 02/15/22 00:25 35 02/15/22 00:00 02/14/22 20:48 35 02/14/22 20:00 02/14/22 18:57 35 02/14/22 18:15 60 02/14/22 17:57 02/14/22 17:25 02/14/22 15:47 02/14/22 15:29 02/14/22 14:19 02/14/22 13:31 02/14/22 13:20 Intake and Output 02/14/22 02/15/22 02/15/22 22:59 06:59 14:59 Output Total 2049 1099 Balance -2049 -1099 Output: Urine 2049 1099 Other: Voiding Method Indwelling Catheter Indwelling Catheter # Bowel Movements 0 Weight 114 kg GENERAL EXAM: Alert, pleasant, 66-year-old female patient, poor historian, currently on a BiPAP at a pressure of 12/5 cm of water and FiO2 of 35%. HEAD: Normocephalic. EYES: Normal reaction of pupils, equal size. NOSE: Clear with pink turbinates. THROAT: No erythema or exudates. NECK: No masses, no JVD. CHEST: No chest wall deformity. LUNGS: Equal air entry with crackles in the posterior bases. CVS: S1 and S2 normal with no audible murmur, regular rhythm. ABDOMEN: No hepatosplenomegaly, normal bowel sounds, no guarding or rigidity. SPINE: No scoliosis or deformity SKIN: No rashes CENTRAL NERVOUS SYSTEM: No focal deficits, tone is normal in all 4 extremities. EXTREMITIES: There is no peripheral edema. No clubbing, no cyanosis. Peripheral pulses are intact. Results - Laboratory Findings CBC and BMP: 02/15/22 07:38 02/15/22 07:38 ABG ABG pH 7.42 (7.35-7.45) 02/15/22 07:38 ABG pCO2 64 mmHg (35-45) H 02/15/22 07:38 ABG pO2 113 mmHg (83-108) H 02/15/22 07:38 ABG O2 Saturation 99.2 % (94-97) H 02/15/22 07:38 PT/INR, D-dimer PT 10.2 sec (9.0-12.0) 02/14/22 13:54 INR 0.9 (<1.2) 02/14/22 13:54 Abnormal lab findings: Abnormal Labs 02/14/22 02/14/22 02/14/22 13:54 13:54 13:54 RBC 3.64 L Hgb 10.7 L Hct MCHC 30.1 L Lymphocytes # 0.8 L APTT 30.6 H ABG pCO2 ABG pO2 ABG HCO3 ABG Total CO2 ABG O2 Saturation VBG pCO2 VBG HCO3 Chloride Carbon Dioxide 35 H Glucose 104 H POC Glucose (mg/dL) Calcium 8.2 L Troponin I Urine Appearance Urine Protein Urine Ketones Urine Blood Ur Leukocyte Esterase Urine RBC Urine WBC Urine WBC Clumps Urine Bacteria Urine Mucus 02/14/22 02/14/22 02/14/22 13:54 13:54 14:24 RBC Hgb Hct MCHC Lymphocytes # APTT ABG pCO2 ABG pO2 ABG HCO3 ABG Total CO2 ABG O2 Saturation VBG pCO2 59 H VBG HCO3 32 H Chloride Carbon Dioxide Glucose POC Glucose (mg/dL) Calcium Troponin I 0.037 H* Urine Appearance Turbid H Urine Protein 2+ H Urine Ketones Trace H Urine Blood Large H Ur Leukocyte Esterase Large H Urine RBC >182 H Urine WBC >182 H Urine WBC Clumps Many H Urine Bacteria Moderate H Urine Mucus Occasional H 02/14/22 02/14/22 02/14/22 18:17 20:03 20:36 RBC Hgb Hct MCHC Lymphocytes # APTT ABG pCO2 ABG pO2 ABG HCO3 ABG Total CO2 ABG O2 Saturation VBG pCO2 VBG HCO3 Chloride Carbon Dioxide Glucose POC Glucose (mg/dL) 137 H Calcium Troponin I 0.043 H* 0.048 H* Urine Appearance Urine Protein Urine Ketones Urine Blood Ur Leukocyte Esterase Urine RBC Urine WBC Urine WBC Clumps Urine Bacteria Urine Mucus 02/15/22 02/15/22 02/15/22 06:06 06:24 07:38 RBC 3.47 L Hgb 10.0 L Hct 33.8 L MCHC 29.5 L Lymphocytes # 0.6 L APTT ABG pCO2 ABG pO2 ABG HCO3 ABG Total CO2 ABG O2 Saturation VBG pCO2 VBG HCO3 Chloride Carbon Dioxide Glucose POC Glucose (mg/dL) 63 L 145 H Calcium Troponin I Urine Appearance Urine Protein Urine Ketones Urine Blood Ur Leukocyte Esterase Urine RBC Urine WBC Urine WBC Clumps Urine Bacteria Urine Mucus 02/15/22 02/15/22 07:38 07:38 RBC Hgb Hct MCHC Lymphocytes # APTT ABG pCO2 64 H ABG pO2 113 H ABG HCO3 41 H* ABG Total CO2 43 H ABG O2 Saturation 99.2 H VBG pCO2 VBG HCO3 Chloride 97 L Carbon Dioxide 41 H* Glucose 105 H POC Glucose (mg/dL) Calcium 8.3 L Troponin I Urine Appearance Urine Protein Urine Ketones Urine Blood Ur Leukocyte Esterase Urine RBC Urine WBC Urine WBC Clumps Urine Bacteria Urine Mucus - Diagnostic Findings Chest x-ray: image reviewed Assessment and Plan Plan: 1Acute mental status change secondary to underlying UTI , suspect a gram- negative urine checked infection causing altered mentation. the patient is currently on IV Rocephin and she was given IV fluids. 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 Meanwhile the patient can go back on oxygen at 4 L replace the Humphrey catheter and this is supposed to get done every 3 weeks Urine culture and blood culture IV Rocephin Resume all medications Mental status is improving We'll continue to follow We will continue to follow and make further recommendations based on her clinical status
--- NOTE | 2022-02-15 13:17 | P.CRDCN ---
History of Present Illness History of present illness: This is a pleasant 66-year-old female past medical history significant for hypertension, olivopontocerebellar degeneration wheelchair bound, recurrent UTIs, bicuspid aortic valve, severe aortic stenosis, COPD, type 2 diabetes, obstructive sleep apnea on CPAP, chronic hypoxic respiratory failure, neurogenic bladder with chronic butt. She follows in the office with Dr. Valero. We have been asked to see in consultation for congestive heart failure. Patient presents to the emergency department with increased alerted mental status and shortness of breath. Patient is a poor historian at bedside, unable to provide accurate history, information obtained from records and the chart. Apparently, over the past 3 days patient has been having increased altered mental status, decreased by mouth intake and worsening dyspnea. Brought to the ER for further evaluation. Patient recently has been evaluated as an outpatient for TAVR and given her increased risk, she was presumed as not a good candidate and her risks outweighed the benefits. DIAGNOSTICS * EKG reveals Sinus rhythm HR 94, nonspecific ST yesterday abnormalities, no acute ischemia, artifact noted. * Telemetry tracings indicate sinus mechanism. * Brain CT report revealed no evidence of acute intracranial hemorrhage, skin changes or mass effect. Somewhat hypodense appearance to bilateral hands, [place] can't exclude pulmonary acute brain infarct. * Chest xray - heart is mildly enlarged, diffuse interstitial pattern * Laboratory reviewed, WBC 7.0, hemoglobin 10, platelets 231, sodium 142, potassium 3.9, Chloride 97, CO2 41, anion gap 4, BUN 10, serum current 0.7, troponin 0.043, for BNP 1600 * Cardiac catheterization 04/30/2021 revealed severe aortic stenosis and normal ascending aorta and normal coronary arteries * MURIEL 03/2021 revealed bicuspid aortic valve, severe restriction in leaflet mobility, severe aortic stenosis, left atrium appears mildly enlarged * 2D Echo in the office 05/2020 revealed EF 55%, moderate severe aortic stenosis with a peak/mean gradient of 34 mmHg/18 mmHg. * Current home medications include aspirin 80 mg daily, atorvastatin 20 mg daily, Lasix 20 mg daily REVIEW OF SYSTEMS At the time of my exam: Unable to get an accurate review of systems secondary to mental status PHYSICAL EXAMINATION Blood pressure 110/62, heart rate 91, afebrile, oxygen saturation 98% on BiPAP CONSTITUTIONAL: Lethargic HEENT: Head is normocephalic. Pupils are equal, round. Sclerae anicteric. Mucous membranes of the mouth are moist. No JVD. CHEST EXAMINATION: Lungs are diminished bilaterally to auscultation. No chest wall tenderness is noted on palpation or with deep breathing. HEART EXAMINATION: Regular rate and rhythm. S1, S2 heard. Systolic ejection murmur at apex. ABDOMEN: Soft, nontender. Positive bowel sounds. EXTREMITIES: 2+ peripheral pulses, no lower extremity edema and no calf tenderness. NEUROLOGIC EXAMINATION: Patient is awake, alert and oriented x3. ASSESSMENT Alerted mental status Metabolic encephalopathy Symptoms of dyspnea, likely multifactorial Urinary tract infection Chronic hypoxic respiratory failure Chronic heart failure with preserved ejection fraction Severe bicuspid aortic valve stenosis Hypertension Dyslipidemia Type 2 Diabetes Obesity BMI 43 Obstructive sleep apnea with home CPAP use History of olivopontinocerebellar demyelination PLAN Hold IV Lasix Neurology consulted Pulmonary consulted Patient on IV antibiotics for UTI Patient recently has been evaluated as an outpatient for TAVR and given her increased risk, she was presumed as not a good candidate and her risks outweighed the benefits. Resume home cardiac medications Rest of management per primary Nurse practitioner note has been reviewed by physician. Signing provider agrees with the documented findings, assessment, and plan of care. 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,wheel chair depenedent, IDDM type II, neuropathy R leg, sarcoidosis/lungs, bronchitis, aortic stenosis/murmur, past chronic constipation, colostomy, occasional incontinence of stool, lower GI bleed, chronic urinary incontinence/neurogenic bladder/chronic Butt/frequent urinary tract infections/sepsis, anemia, gait dysfunction-pt is lifted to electric w/c, obstructive sleep apnea with Cpap use, chronic hydronephrosis of the kidneys, colostomy History of Any Multi-Drug Resistant Organisms: C-DIFF, MRSA Date of last positivie culture/infection: 11/2015 MDRO Source:: c-diff, mrsa 2010 in blood Past Surgical History: Bowel Resection, Tubal Ligation Additional Past Surgical History / Comment(s): 2015 sigmoid volvulus with bowel resection/colostomy, EGD, colonoscopies, bronchoscopies x3, carpal tunnel release-laterallity unknown, D&C, Past Anesthesia/Blood Transfusion Reactions: No Reported Reaction Past Psychological History: Depression Smoking Status: Never smoker Past Alcohol Use History: None Reported Past Drug Use History: None Reported - Past Family History Father Family Medical History: Cancer Additional Family Medical History / Comment(s): from pancreatic cancer Mother Family Medical History: Congestive Heart Failure (CHF), Diabetes Mellitus, Dialysis Additional Family Medical History / Comment(s): from CHF Medications and Allergies Home Medications Medication Instructions Recorded Confirmed Type Aspirin 81 mg PO DAILY 11/10/15 02/14/22 History Atorvastatin Calcium [Lipitor] 20 mg PO DAILY 11/10/15 02/14/22 History Budesonide [Pulmicort] 0.5 mg INHALATION RT-BID 11/10/15 02/14/22 History [place]-3 Fatty Acids/Fish Oil [Fish 1 cap PO DAILY 11/10/15 02/14/22 History Oil 1,000 mg Softgel] Albuterol Nebulized [Ventolin 2.5 mg INHALATION RT-QID 11/11/15 02/14/22 History Nebulized] Oxybutynin Xl [Ditropan XL] 5 mg PO DAILY 11/11/15 02/14/22 History metFORMIN HCL [Glucophage] 1,000 mg PO BID 10/08/19 02/14/22 History Lactulose [Cephulac] 10 gm PO BID PRN 07/20/20 02/14/22 History Multivitamins, Thera [Multivitamin 1 tab PO DAILY 07/20/20 02/14/22 History (formulary)] Psyllium Husk (with Sugar) 1 tbsp PO DAILY 07/20/20 02/14/22 History [Metamucil Powder] Imipramine [Tofranil] 25 mg PO BID #0 07/22/20 02/14/22 Rx Magnesium Citrate 148 ml PO DAILY PRN 04/25/21 02/14/22 History PARoxetine [Paxil] 20 mg PO DAILY 04/25/21 02/14/22 History Cholecalciferol [Vitamin D3 (25 25 mcg PO DAILY 12/24/21 02/14/22 History Mcg = 1000 Iu)] Insulin Aspart [NovoLOG Flexpen] See Protocol SQ AC-TID 12/24/21 02/14/22 History Insulin Glargine,Hum.rec.anlog 50 unit SQ HS 12/24/21 02/14/22 History [Lantus Solostar Pen] L.acidoph,Paracasei, B.lactis 1 cap PO DAILY 12/24/21 02/14/22 History [Probiotic] Furosemide [Lasix] 20 mg PO DAILY #15 tab 12/27/21 02/14/22 Rx Allergies Allergy/AdvReac Type Severity Reaction Status Date / Time No Known Allergies Allergy Verified 02/14/22 15:41 Physical Exam Vitals: Vital Signs Temp Pulse Pulse Resp BP BP Pulse Ox 02/15/22 07:29 87 02/15/22 07:11 87 93 L 02/15/22 04:06 02/15/22 04:00 98.5 F 91 16 130/68 96 02/15/22 02:00 92 24 02/15/22 00:27 95 02/15/22 00:25 02/15/22 00:00 99.2 F 92 24 104/62 95 02/14/22 20:48 02/14/22 20:00 98.9 F 117 H 22 97/59 93 L 02/14/22 18:57 97.2 F L 93 18 119/68 96 02/14/22 18:15 02/14/22 17:57 98.4 F 94 24 132/65 96 02/14/22 17:25 93 22 117/71 96 02/14/22 15:47 93 02/14/22 15:29 92 02/14/22 14:19 96 24 131/76 97 02/14/22 13:31 98.7 F 86 20 120/81 97 02/14/22 13:20 98.7 F 93 22 117/76 96 FiO2 02/15/22 07:29 02/15/22 07:11 35 02/15/22 04:06 35 02/15/22 04:00 02/15/22 02:00 02/15/22 00:27 35 02/15/22 00:25 35 02/15/22 00:00 02/14/22 20:48 35 02/14/22 20:00 02/14/22 18:57 35 02/14/22 18:15 60 02/14/22 17:57 02/14/22 17:25 02/14/22 15:47 02/14/22 15:29 02/14/22 14:19 02/14/22 13:31 02/14/22 13:20 Intake and Output 02/14/22 02/15/22 02/15/22 22:59 06:59 14:59 Output Total 2049 1099 Balance -2049 -1099 Output: Urine 2049 1099 Other: Voiding Method Indwelling Catheter Indwelling Catheter # Bowel Movements 0 Weight 114 kg Results 02/15/22 07:38 02/15/22 07:38 Cardiac Enzymes 02/14/22 02/14/22 02/14/22 Range/Units 13:54 13:54 18:17 AST 33 (14-36) U/L Troponin I 0.037 H* 0.043 H* (0.000-0.034) ng/mL 02/14/22 Range/Units 20:36 AST (14-36) U/L Troponin I 0.048 H* (0.000-0.034) ng/mL Coagulation 02/14/22 Range/Units 13:54 PT 10.2 (9.0-12.0) sec APTT 30.6 H (22.0-30.0) sec CBC 02/14/22 Range/Units 13:54 WBC 9.0 (3.8-10.6) k/uL RBC 3.64 L (3.80-5.40) m/uL Hgb 10.7 L (11.4-16.0) gm/dL Hct 35.5 (34.0-46.0) % Plt Count 260 (150-450) k/uL Comprehensive Metabolic Panel 02/14/22 Range/Units 13:54 Sodium 137 (137-145) mmol/L Potassium 4.7 (3.5-5.1) mmol/L Chloride 99 (98-107) mmol/L Carbon Dioxide 35 H (22-30) mmol/L BUN 11 (7-17) mg/dL Creatinine 0.74 (0.52-1.04) mg/dL Glucose 104 H (74-99) mg/dL Calcium 8.2 L (8.4-10.2) mg/dL AST 33 (14-36) U/L ALT 20 (4-34) U/L Alkaline Phosphatase 83 (38-126) U/L Total Protein 6.8 (6.3-8.2) g/dL Albumin 3.6 (3.5-5.0) g/dL Current Medications Generic Name Dose Route Start Last Admin Trade Name Freq PRN Reason Stop Dose Admin Albuterol Sulfate 2.5 mg 02/15/22 08:00 02/15/22 07:11 Albuterol Nebulized 2.5 Mg/3 Ml INHALATION 2.5 mg RT-QID [place] Administration Aspirin 81 mg 02/15/22 09:00 Aspirin 81 Mg PO DAILY [facility] Atorvastatin Calcium 20 mg 02/15/22 09:00 Atorvastatin 20 Mg Tab PO DAILY [facility] Budesonide 0.5 mg 02/15/22 08:00 02/15/22 07:11 Budesonide 0.5 Mg/2 Ml Nebu INHALATION 0.5 mg RT-BID [place] Administration Enoxaparin Sodium 40 mg 02/15/22 09:00 Enoxaparin 40 Mg/0.4 Ml Syringe SQ DAILY [facility] Furosemide 20 mg 02/15/22 09:00 Furosemide 10 Mg/Ml 2 Ml Vial IV DAILY [facility] Ceftriaxone Sodium 1 gm/ 50 mls @ 100 mls/hr 02/15/22 09:00 Sodium Chloride IVPB Q24HR [facility] Protocol Imipramine HCl 25 mg 02/15/22 09:00 Imipramine 25 Mg Tab PO BID [facility] Insulin Aspart 0 unit 02/15/22 07:30 02/15/22 06:35 Insulin Aspart (Novolog) 100 Unit/Ml Vial SQ Not Given ACHS [facility] Protocol Naloxone HCl 0.2 mg 02/14/22 15:57 Naloxone 0.4 Mg/Ml 1 Ml Vial IV Q2M PRN Opioid Reversal Intake and Output 02/14/22 02/15/22 02/15/22 22:59 06:59 14:59 Output Total 2049 1099 Balance -2049 -1099 Output: Urine 2049 1099 Other: Voiding Method Indwelling Catheter Indwelling Catheter # Bowel Movements 0 Weight 114 kg 02/14/22 13:54 02/14/22 13:54
[2022-02-15 16:56] LABS: Glucose,Whole Blood 119 mg/dL (75-99)
--- NOTE | 2022-02-15 17:34 | P.PN ---
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 Patient cannot provide any history at this time. According to her at bedside patient has been having altered mentation for the past 3 days and has not been eating. Patient is also having worsening dyspnea. She was brought to the hosp [facility] by EMS. Patient has been afebrile. No episodes of vomiting. No diarrhea. No complaints of chest pain. Patient does have previous history of Klebsiella pneumonia urinary tract infection. Chest x-ray showed correlate for CHF. Otherwise consider interstitial pneumonia or atypical pneumonia. CT head showed no acute intracranial hemorrhage or gross acute cortical infarct. EKG showed sinus rhythm. Laboratory data showed WBC 9.0 hemoglobin 10.7 and platelets 260 Lymphocytes 0.8 Sodium 137 potassium 4.7 chloride 99 bicarb is 35 BUN 11 and creatinine 0.74 Calcium 8.2, radiation 1.8 and troponin 0.037, 0.043 and proBNP 1600 Urinalysis showed turbid with 2+ protein trace ketones large blood nitrite negative leukocyte esterase large and elevated RBCs and WBCs. Objective - Vital Signs Vital signs: Vital Signs Temp 99.2 F 02/15/22 08:00 Pulse 90 02/15/22 11:25 Resp 16 02/15/22 08:00 BP 113/63 02/15/22 08:00 Pulse Ox 97 02/15/22 08:00 FiO2 35 02/15/22 11:15 Intake & Output 02/14/22 02/15/22 02/15/22 18:59 06:59 18:59 Output Total 350 2800 Balance -350 -2800 Weight 136.078 kg 114 kg Output: Urine 350 2800 Other: Voiding Method Indwelling Catheter # Bowel Movements 0 - Exam HEENT: Normocephalic. Neck is supple. Pupils reactive. Nostrils clear. Oral cavity is moist. Neck reveals no JVD, carotid bruits, or thyromegaly. CHEST EXAMINATION: Trachea is central. Symmetrical expansion. Bibasilar diminished air entry. No wheezing or rhonchi.. CARDIAC: Normal S1, S2 with no gallops. Systolic murmur present. ABDOMEN: Soft. Bowel sounds present. Nontender. No organomegaly. No abdominal bruits. Extremities: reveal no edema. No clubbing or cyanosis Neurologically awake, alert, confused and disoriented. No gross focal neurological deficit. Skin: No rash or skin lesions. Psychiatric: Coperative. Could not be assessed.. Musculoskeletal: No joint swelling or deformity. - Labs CBC & Chem 7: 02/15/22 07:38 02/15/22 07:38 Labs: Abnormal Lab Results - Last 24 Hours (Table) 02/14/22 02/14/22 02/14/22 Range/Units 13:54 13:54 13:54 RBC 3.64 L (3.80-5.40) m/uL Hgb 10.7 L (11.4-16.0) gm/dL Hct (34.0-46.0) % MCHC 30.1 L (31.0-37.0) g/dL Lymphocytes # 0.8 L (1.0-4.8) k/uL APTT 30.6 H (22.0-30.0) sec ABG pCO2 (35-45) mmHg ABG pO2 (83-108) mmHg ABG HCO3 (21-25) mmol/L ABG Total CO2 (19-24) mmol/L ABG O2 Saturation (94-97) % VBG pCO2 (37-51) mmHg VBG HCO3 (24-28) mmol/L Chloride (98-107) mmol/L Carbon Dioxide 35 H (22-30) mmol/L Glucose 104 H (74-99) mg/dL POC Glucose (mg/dL) (75-99) mg/dL Calcium 8.2 L (8.4-10.2) mg/dL Troponin I (0.000-0.034) ng/mL Urine Appearance (Clear) Urine Protein (Negative) Urine Ketones (Negative) Urine Blood (Negative) Ur Leukocyte Esterase (Negative) Urine RBC (0-5) /hpf Urine WBC (0-5) /hpf Urine WBC Clumps (None) /hpf Urine Bacteria (None) /hpf Urine Mucus (None) /hpf 02/14/22 02/14/22 02/14/22 Range/Units 13:54 13:54 14:24 RBC (3.80-5.40) m/uL Hgb (11.4-16.0) gm/dL Hct (34.0-46.0) % MCHC (31.0-37.0) g/dL Lymphocytes # (1.0-4.8) k/uL APTT (22.0-30.0) sec ABG pCO2 (35-45) mmHg ABG pO2 (83-108) mmHg ABG HCO3 (21-25) mmol/L ABG Total CO2 (19-24) mmol/L ABG O2 Saturation (94-97) % VBG pCO2 59 H (37-51) mmHg VBG HCO3 32 H (24-28) mmol/L Chloride (98-107) mmol/L Carbon Dioxide (22-30) mmol/L Glucose (74-99) mg/dL POC Glucose (mg/dL) (75-99) mg/dL Calcium (8.4-10.2) mg/dL Troponin I 0.037 H* (0.000-0.034) ng/mL Urine Appearance Turbid H (Clear) Urine Protein 2+ H (Negative) Urine Ketones Trace H (Negative) Urine Blood Large H (Negative) Ur Leukocyte Esterase Large H (Negative) Urine RBC >182 H (0-5) /hpf Urine WBC >182 H (0-5) /hpf Urine WBC Clumps Many H (None) /hpf Urine Bacteria Moderate H (None) /hpf Urine Mucus Occasional H (None) /hpf 02/14/22 02/14/22 02/14/22 Range/Units 18:17 20:03 20:36 RBC (3.80-5.40) m/uL Hgb (11.4-16.0) gm/dL Hct (34.0-46.0) % MCHC (31.0-37.0) g/dL Lymphocytes # (1.0-4.8) k/uL APTT (22.0-30.0) sec ABG pCO2 (35-45) mmHg ABG pO2 (83-108) mmHg ABG HCO3 (21-25) mmol/L ABG Total CO2 (19-24) mmol/L ABG O2 Saturation (94-97) % VBG pCO2 (37-51) mmHg VBG HCO3 (24-28) mmol/L Chloride (98-107) mmol/L Carbon Dioxide (22-30) mmol/L Glucose (74-99) mg/dL POC Glucose (mg/dL) 137 H (75-99) mg/dL Calcium (8.4-10.2) mg/dL Troponin I 0.043 H* 0.048 H* (0.000-0.034) ng/mL Urine Appearance (Clear) Urine Protein (Negative) Urine Ketones (Negative) Urine Blood (Negative) Ur Leukocyte Esterase (Negative) Urine RBC (0-5) /hpf Urine WBC (0-5) /hpf Urine WBC Clumps (None) /hpf Urine Bacteria (None) /hpf Urine Mucus (None) /hpf 02/15/22 02/15/22 02/15/22 Range/Units 06:06 06:24 07:38 RBC 3.47 L (3.80-5.40) m/uL Hgb 10.0 L (11.4-16.0) gm/dL Hct 33.8 L (34.0-46.0) % MCHC 29.5 L (31.0-37.0) g/dL Lymphocytes # 0.6 L (1.0-4.8) k/uL APTT (22.0-30.0) sec ABG pCO2 (35-45) mmHg ABG pO2 (83-108) mmHg ABG HCO3 (21-25) mmol/L ABG Total CO2 (19-24) mmol/L ABG O2 Saturation (94-97) % VBG pCO2 (37-51) mmHg VBG HCO3 (24-28) mmol/L Chloride (98-107) mmol/L Carbon Dioxide (22-30) mmol/L Glucose (74-99) mg/dL POC Glucose (mg/dL) 63 L 145 H (75-99) mg/dL Calcium (8.4-10.2) mg/dL Troponin I (0.000-0.034) ng/mL Urine Appearance (Clear) Urine Protein (Negative) Urine Ketones (Negative) Urine Blood (Negative) Ur Leukocyte Esterase (Negative) Urine RBC (0-5) /hpf Urine WBC (0-5) /hpf Urine WBC Clumps (None) /hpf Urine Bacteria (None) /hpf Urine Mucus (None) /hpf 02/15/22 02/15/22 Range/Units 07:38 07:38 RBC (3.80-5.40) m/uL Hgb (11.4-16.0) gm/dL Hct (34.0-46.0) % MCHC (31.0-37.0) g/dL Lymphocytes # (1.0-4.8) k/uL APTT (22.0-30.0) sec ABG pCO2 64 H (35-45) mmHg ABG pO2 113 H (83-108) mmHg ABG HCO3 41 H* (21-25) mmol/L ABG Total CO2 43 H (19-24) mmol/L ABG O2 Saturation 99.2 H (94-97) % VBG pCO2 (37-51) mmHg VBG HCO3 (24-28) mmol/L Chloride 97 L (98-107) mmol/L Carbon Dioxide 41 H* (22-30) mmol/L Glucose 105 H (74-99) mg/dL POC Glucose (mg/dL) (75-99) mg/dL Calcium 8.3 L (8.4-10.2) mg/dL Troponin I (0.000-0.034) ng/mL Urine Appearance (Clear) Urine Protein (Negative) Urine Ketones (Negative) Urine Blood (Negative) Ur Leukocyte Esterase (Negative) Urine RBC (0-5) /hpf Urine WBC (0-5) /hpf Urine WBC Clumps (None) /hpf Urine Bacteria (None) /hpf Urine Mucus (None) /hpf Microbiology - Last 24 Hours (Table) 02/14/22 14:24 Urine Culture - Preliminary Urine,Voided Assessment and Plan Assessment: Altered mental status due to metabolic encephalopathy Acute complicated urinary tract infection with chronic indwelling Humphrey cathete r. 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 DVT prophylaxis with Lovenox subcu Plan: Patient will be continued on antibiotics in the form of ceftriaxone and follow- up urine culture report. Patient was given a dose of IV Lasix in the ER. Continue with BiPAP as tolerated. Duo nebs and follow-up culture reports. Cardiology will be consulted due to severe aortic stenosis and CHF. GI and DVT prophylaxis. Prognosis is guarded at this time. Discussed with her at bedside in detail.
--- NOTE | 2022-02-15 18:37 | MR ---
EXAMINATION TYPE: MR angio head wo con DATE OF EXAM: 02/15/2022 COMPARISON: None HISTORY: stroke. anisocoria There is arterial flow in both distal internal carotid arteries. There is arterial flow in the verteb ral basilar artery system. Basilar artery fills mostly through the right vertebral artery. There is s mall left vertebral artery. The right posterior cerebral artery is smaller diameter than the left. Th ere is arterial flow in the anterior and middle cerebral arteries bilaterally. No sign of intracrania l aneurysm. There appears to be some fusiform narrowing of the infraclinoid left internal carotid art xiomara. There is no mass effect. IMPRESSION: There is diminutive right posterior cerebral artery compared to the left that could be related to nabila e mild stenosis. There is stenosis of the intracranial left internal card artery. Stenosis approximately 75%.
--- NOTE | 2022-02-15 18:50 | MR ---
EXAMINATION TYPE: MR brain wo con DATE OF EXAM: 02/15/2022 COMPARISON: None HISTORY: stroke. anisocoria Multiplanar multiecho imaging of the brain with no contrast. Lateral ventricles are nonenlarged. There is a large fourth ventricle with mixed signal that probably is flow related artifact. No definite mass in the fourth ventricle. There is no mass effect or midli ne shift. There is cerebral cortical atrophy. There is mild thinning of the corpus callosum. The brai nstem is small. There are some patchy areas of increased signal on the FLAIR and T2-weighted images i n the peña and the cerebral peduncles. There is also increased signal in the left and right cerebella r peduncles. There is some coalescent increased signal in the periventricular white matter. Diffusion images show no sign of an acute infarct. IMPRESSION: There is evidence of some atrophy and old infarct involving the brainstem as above and there is abnor mality demonstrated in the cerebral and cerebellar peduncles and the peña. This appears unchanged com pared to old exam. There is coalescent white matter increased signal around the lateral ventricles is probably microvascular ischemia. Unchanged. Demyelinating disease also possible.
[2022-02-15 20:43] LABS: Glucose,Whole Blood 224 mg/dL (75-99)
[2022-02-16 06:19] LABS: Glucose,Whole Blood 275 mg/dL (75-99)
[2022-02-16] MEDS: INSULIN ASPART (NovoLOG) 100 UNIT/ML VIAL SQ SCH ×4 (06:23→20:15)
[2022-02-16] MEDS: ALBUTEROL NEBULIZED 2.5 MG/3 ML INHALATION SCH ×4 (07:44→20:00)
[2022-02-16] MEDS: BUDESONIDE 0.5 MG/2 ML NEBU INHALATION SCH ×2 (07:44→20:00)
[2022-02-16] MEDS: ASPIRIN 81 MG PO SCH (09:26)
[2022-02-16] MEDS: IMIPRAMINE 25 MG TAB PO SCH ×2 (09:26→20:08)
[2022-02-16] MEDS: ATORVASTATIN 20 MG TAB PO SCH (09:26)
[2022-02-16] MEDS: ENOXAPARIN 40 MG/0.4 ML SYRINGE SQ SCH (09:27)
--- NOTE | 2022-02-16 09:54 | US ---
EXAMINATION TYPE: US carotid duplex BILAT DATE OF EXAM: 02/16/2022 COMPARISON: 09/08/2016 CLINICAL HISTORY: carotid stenosis EXAM MEASUREMENTS: RIGHT: Peak Systolic Velocity (PSV) cm/sec ----- Right CCA: 58.6 ----- Right ICA: 79.4 ----- Right ECA: 103.2 ICA/CCA ratio: 1.4 RIGHT: End Diastole cm/sec ----- Right CCA: 15.5 ----- Right ICA: 22.0 ----- Right ECA: 7.9 LEFT: Peak Systolic Velocity (PSV) cm/sec ----- Left CCA: 62.0 ----- Left ICA: 95.6 ----- Left ECA: 112.9 ICA/CCA ratio: 1.5 LEFT: End Diastole cm/sec ----- Left CCA: 16.7 ----- Left ICA: 21.9 ----- Left ECA: 11.1 VERTEBRALS (direction of flow): Right Vertebral: Antegrade Left Vertebral: Antegrade Rhythm: Normal IMPRESSION: No significant carotid plaque formation or stenosis. Criteria for Assigning % of Stenosis / Diameter reduction (Estimation based on the indirect measurements of the internal carotid artery velocities (ICA PSV). 1. Normal (no stenosis)=ICA PSV < 125 cm/s: ratio < 2.0: ICA EDV<40 cm/s. 2. Less than 50% stenosis=ICA PSV < 125 cm/s: ratio < 2.0: ICA EDV<40 cm/s. 3. 50 to 69% stenosis=ICA PSV of 125 to 230 cm/s: ration 2.0 ? 4.0: ICA EDV 40-100 cm/s. 4. Greater than 70% stenosis to near occlusion= ICA PSV > 230 cm/s: ratio > 4.0: ICA EDV > 100 cm/s. 5. Near occlusion= ICA PSV velocities may be low or undetectable: variable ratio and ICA EDV. 6. Total occlusion=unable to detect flow.
--- NOTE | 2022-02-16 10:38 | P.PN ---
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 Lifelong nonsmoker. the patient also has had previous history of recurrent UTIs, and she has a permanent Humphrey catheter in place at this point in time. she has had several hospitalizations in the past. I recently saw her in the office and she was quite stable. The patient came into the hospital becausse of altered mentation and some increased shortness of breath. the patient was seen in the ED and she was given a CAT scan of the brain that showed no acute abnormalities. her chest x-ray showed some myocardial megaly and small amount of fluid in the minor fissure and small or effusions. Otherwise other acute abnormalities have been noted. the patient's labs showed a white cell count of 7 with a hemoglobin of 10 and a platelet count of 231. Blood gases showed a pH of 7.42 with a pCO2 of 64 and pO2 113 and this was done and FiO2 of 35% I believe this was done while on the BiPAP. serum bicarb is 41 with a sodium level of 142 and a potassium level of 3.9. Glucose is 105. troponins of 0.04 and a calcium level is at 8.3. urinalysis has been abnorrmal with increased white cell count and the patient has a permanent Humphrey catheter in place due to chronic urinary retention. The is been doing bladder flushes on this patient which is reduced the frequency of UTIs. Marilee most recent UTI was related to Klebsiella pneumoniae on 12/25/2021. Prior to that the patient had other gram-negative infections including infections with Enterobacter. For now, the patient is on IV fluids. She is on a BiPAP at a pressure of 12/6 cm of water with an FiO2 of 35%. In terms of antibiotics, the patient was given IV Rocephin. On today's evaluation of 02/16/2022, the patient is feeling better. She has no new complaints. She spent the night on BiPAP and currently she is on oxygen at 4 L. No chest pain. No nausea or vomiting. She has gram-negative UTI for which is on IV Rocephin. Seems to more alert and awake compared to yesterday and less lethargic. Objective - Vital Signs Vital signs: Vital Signs Temp 97.7 F 02/16/22 04:00 Pulse 90 02/16/22 07:47 Resp 11 L 02/16/22 04:00 BP 122/70 02/16/22 04:00 Pulse Ox 96 02/16/22 07:47 FiO2 35 02/16/22 04:09 Intake & Output 02/15/22 02/16/22 02/16/22 18:59 06:59 18:59 Intake Total 350 220 Output Total 2150 1300 Balance -1800 -1300 220 Weight 109 kg Intake: Intake, IV Titration 50 Amount cefTRIAXone 1 gm In 50 Sodium Chloride 0.9% 50 ml @ 100 mls/hr IVPB Q24HR [facility] Rx#:[id number] Oral 300 220 Output: Urine 2150 1300 Other: Voiding Method Indwelling Catheter Indwelling Catheter - Exam GENERAL EXAM: Alert, pleasant, 66-year-old female patient, poor historian, currently on a BiPAP at a pressure of 12/5 cm of water and FiO2 of 35% overnight and the patient is currently on 4 L of oxygen by nasal cannula. HEAD: Normocephalic. EYES: Normal reaction of pupils, equal size. NOSE: Clear with pink turbinates. THROAT: No erythema or exudates. NECK: No masses, no JVD. CHEST: No chest wall deformity. LUNGS: Equal air entry with crackles in the posterior bases. CVS: S1 and S2 normal with no audible murmur, regular rhythm. ABDOMEN: No hepatosplenomegaly, normal bowel sounds, no guarding or rigidity. SPINE: No scoliosis or deformity SKIN: No rashes CENTRAL NERVOUS SYSTEM: No focal deficits, tone is normal in all 4 extremities. EXTREMITIES: There is no peripheral edema. No clubbing, no cyanosis. Peripheral pulses are intact. - Labs CBC & Chem 7: 02/15/22 07:38 02/15/22 07:38 Labs: Abnormal Lab Results - Last 24 Hours (Table) 02/15/22 02/15/22 02/16/22 Range/Units 16:54 20:42 06:18 POC Glucose (mg/dL) 119 H 224 H 275 H (75-99) mg/dL Microbiology - Last 24 Hours (Table) 02/14/22 14:24 Urine Culture - Preliminary Urine,Voided Gram Neg Bacilli 02/14/22 18:17 Blood Culture - Preliminary Blood No Growth after 24 hours 02/14/22 18:29 Blood Culture - Preliminary Blood No Growth after 24 hours Assessment and Plan Plan: Acute mental status change secondary to underlying UTI , suspect a gram- negative urine checked infection causing altered mentation. the patient is currently on IV Rocephin and she was given IV fluids. The patient has a gram-ne gative UTI and the patient is currently on IV Rocephin awaiting final cultures and sensitivities. 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 and obvious demyelination and degeneration in the cerebellum and portions of the brain stem Diabetes mellitus Chronic urinary incontinence with previous chronic indwelling Humphrey catheter Hypertension Hyperlipidemia Obstructive sleep apnea maintained on CPAP History of bowel resection with colostomy History of chronic urinary incontinence and chronic Humphrey catheter with previous frequent UTIs History of sarcoidosis Poor overall functional performance based on the above-mentioned multiple comorbidities, requires electric wheelchair Plan: Clinically improving Continue same treatment for now No active pulmonary issues May continue using the BiPAP overnight. Meanwhile the patient can go back on oxygen at 4 L, replace the Humphrey catheter and this is supposed to get done every 3 weeks Urine culture and blood culture IV Rocephin Resume all medications Mental status is improving We'll continue to follow
[2022-02-16 12:06] LABS: African American GFR (CKD) >90 (>60 ml/min/1.73 sqM); Anion Gap 6 mmol/L; Blood Urea Nitrogen 8 mg/dL (7-17); Calcium 8.2 mg/dL (8.4-10.2); Carbon Dioxide 36 mmol/L (22-30); Chloride 96 mmol/L (98-107); Glucose 269 mg/dL (74-99); Non-African American GFR(CKD) 88 (>60 ml/min/1.73 sqM); Potassium 4.1 mmol/L (3.5-5.1); Sodium 138 mmol/L (137-145)
[2022-02-16 12:16] LABS: Glucose,Whole Blood 314 mg/dL (75-99)
--- NOTE | 2022-02-16 12:58 | P.PN ---
Subjective Progress Note Date: 02/16/22 Patient is accompanied by her family members and per her she is doing drastically better and more awake and he feels back to baseline. Objective - Vital Signs Vital signs: Vital Signs Temp 97.9 F 02/16/22 08:00 Pulse 90 02/16/22 11:25 Resp 18 02/16/22 08:00 BP 114/56 02/16/22 08:00 Pulse Ox 97 02/16/22 08:00 FiO2 35 02/16/22 04:09 Intake & Output 02/15/22 02/16/22 02/16/22 18:59 06:59 18:59 Intake Total 350 220 Output Total 2150 1300 Balance -1800 -1300 220 Weight 109 kg Intake: Intake, IV Titration 50 Amount cefTRIAXone 1 gm In 50 Sodium Chloride 0.9% 50 ml @ 100 mls/hr IVPB Q24HR [facility] Rx#:[id number] Oral 300 220 Output: Urine 2150 1300 Other: Voiding Method Indwelling Catheter Indwelling Catheter Indwelling Catheter - Exam GENERAL: The patient is lying in bed and is not in acute distress. NEUROLOGICAL: Higher mental function: The patient is more awake, alert. Patient is following simple commands. No aphasia and no neglect. Cranial nerves: The pupils are round, right is 2-3mm and left is 4-5equal and reactive to light (event the left is reactive and assessed multiple times but is sluggishly initially) and patient's stated this is old. Visual dee are full to confrontation throughout. Extraocular movement is intact no nystagmus is noted. Facial sensation is normal to touch throughout. No facial droop. Motor: The strength is 5 over 5 throughout upper. Right lower is spastic while left is lifting above gravity (old per ). Cerebellum: Normal finger to nose bilaterally. Sensation: Sensation is normal to touch throughout. Reflexes (right/left): 2+ throughout uppers. SOME OF THE WORK-UP: Vitamin B12 is 698. TSH is 1.45 His ammonia is 13 Folate is more than [address] of the head which is reported as no acute intracranial hemorrhage or gross acute cortical infarct. I personally reviewed the CT of the head and I felt the patient has hypo-attenuation over the pontine region which could be artifact as well as patient has lacunar that are old over the right thalamus in the left internal capsule/basal ganglia region. Patient has also atrophy over the olivopontocerebellar region. Because of the vision abnormality in which the patient had the unequal pupils and one of the pupils was a dilated unreactive patient had a repeat CT of the head ordered by the primary team which is reported as somewhat hypodense appearance of bilateral peña on axial image 20 may reflect skull base artifact. MRI can exclude evolving acute brainstem infarct. No evidence for acute intracranial hemorrhage or midline shift. I personally reviewed the CT of the head and I felt was not different compared to the CT of the day earlier. MR the brain is reported as there is evidence of some atrophy and old infarct involving the brainstem and and there is abnormality demonstrated in the cerebral and cerebellar upon the goals in the peña. This appears unchanged compared to old exam. There is coalescence white matter increased signal around the lateral ventricle probably microvascular ischemia. Unchanged. The mind disease also possible. I personally reviewed the MRI and there is no acute or subacute ischemic stroke. MRA of the head is reported as there is diminutive right posterior cerebral artery compared to the left that could be related to some mild stenosis. There is stenosis of the intracranial left internal carotid artery. Stenosis approximately 75% Rotted duplex is reported as no significant carotid plaque formation or stenosis. - Labs CBC & Chem 7: 02/15/22 07:38 02/16/22 10:54 Labs: Abnormal Lab Results - Last 24 Hours (Table) 02/15/22 02/15/22 02/16/22 Range/Units 16:54 20:42 06:18 Chloride (98-107) mmol/L Carbon Dioxide (22-30) mmol/L Glucose (74-99) mg/dL POC Glucose (mg/dL) 119 H 224 H 275 H (75-99) mg/dL Calcium (8.4-10.2) mg/dL 02/16/22 02/16/22 Range/Units 10:54 12:04 Chloride 96 L (98-107) mmol/L Carbon Dioxide 36 H (22-30) mmol/L Glucose 269 H (74-99) mg/dL POC Glucose (mg/dL) 314 H (75-99) mg/dL Calcium 8.2 L (8.4-10.2) mg/dL Microbiology - Last 24 Hours (Table) 02/14/22 14:24 Urine Culture - Preliminary Urine,Voided Gram Neg Bacilli 02/14/22 18:17 Blood Culture - Preliminary Blood No Growth after 24 hours 02/14/22 18:29 Blood Culture - Preliminary Blood No Growth after 24 hours Assessment and Plan Assessment: Altered mental status due to multifactorial: Metabolic encephalopathy and due acute hypoxic respiratory. Also component due to UTI---mentation improved. Anisocoria (left eye > right but both reactive to light): According to old Left ICA stenosis per MRA but no significant stenosis on carotid. Diabetes mellitus and during this hospital visit her sugar got as low as 60 Acute on chronic hypoxic respiratory failure Likely Acute urinary tract infection [id number] degeneration who is wheel chair-bound (diagnosed 17 years ago). 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 Hypertension Congestive heart failure Moderate to severe bicuspid aortic stenosis Obstructive sleep apnea on CPAP Previous GI bleed Plan: Patient is on her home dose of aspirin 81 and Lipitor 20 mg and is sufficient for secondary stroke prophylaxis. For the initial reported of left ICA stenosis on MRA, I initially consult vascular surgery team. Carotid duplex it's reported as no significant stenosis. Patient can be seen as an outpatient by vascular surgery team for further workup. Therefore will disregard the consult and again the patient to follow up as an outpatient but vascular team. Neuro checks every 4 hours Pulmonary team is on board Cardiology team is consulted Please avoid hypoglycemic episodes. We'll defer rest of medical management to the primary team The plan is discussed with patient's (who is at bedside). There is no further neurological work-up. Will sign off. Please reconsult if needed. Epifanio Mcginnis M.D. Neuro-hospitalist Time with Patient: Less than 30
[2022-02-16 16:40] LABS: Glucose,Whole Blood 264 mg/dL (75-99)
--- NOTE | 2022-02-16 18:57 | P.PN ---
Subjective Progress Note Date: 02/16/22 Principal diagnosis: Altered mental status due to metabolic encephalopathy Acute complicated urinary tract infection with chronic indwelling Humphrey catheter. 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 Patient cannot provide any history at this time. According to her at bedside patient has been having altered mentation for the past 3 days and has not been eating. Patient is also having worsening dyspnea. She was brought to the hospital by EMS. Patient has been afebrile. No episodes of vomiting. No diarrhea. No complaints of chest pain. Patient does have previous history of Klebsiella pneumonia urinary tract infection. Chest x-ray showed correlate for CHF. Otherwise consider interstitial pneumonia or atypical pneumonia. CT head showed no acute intracranial hemorrhage or gross acute cortical infarct. EKG showed sinus rhythm. Laboratory data showed WBC 9.0 hemoglobin 10.7 and platelets 260 Lymphocytes 0.8 Sodium 137 potassium 4.7 chloride 99 bicarb is 35 BUN 11 and creatinine 0.74 Calcium 8.2, radiation 1.8 and troponin 0.037, 0.043 and proBNP 1600 Urinalysis showed turbid with 2+ protein trace ketones large blood nitrite negative leukocyte esterase large and elevated RBCs and WBCs. 02/16/2022 the patient is seen and evaluated in room at bedside; reports feeling better. She has no new complaints. She spent the night on BiPAP and currently she is on oxygen at 4 L. No chest pain. No nausea or vomiting. She has gram-negative UTI for which is on IV Rocephin. Seems to more alert and awake compared to yesterday and less lethargic. Mental status is improving We will plan to continue all current management; patient will continue to use BiPAP overnight with O2 at 4 L per nasal cannula during daytime 40 catheter to remain in place and be replaced every 3 weeks; Patient will continue with IV Rocephin until final urine culture is available Objective - Vital Signs Vital signs: Vital Signs Temp 98.4 F 02/16/22 18:12 Pulse 94 02/16/22 18:12 Resp 18 02/16/22 18:12 BP 140/82 02/16/22 18:12 Pulse Ox 93 L 02/16/22 18:33 FiO2 100 02/16/22 18:20 Intake & Output 02/15/22 02/16/22 02/16/22 18:59 06:59 18:59 Intake Total 350 700 Output Total 2150 1300 Balance -1800 -1300 700 Weight 109 kg Intake: Intake, IV Titration 50 Amount cefTRIAXone 1 gm In 50 Sodium Chloride 0.9% 50 ml @ 100 mls/hr IVPB Q24HR [facility] Rx#:[id number] Oral 300 700 Output: Urine 2150 1300 Other: Voiding Method Indwelling Catheter Indwelling Catheter Indwelling Catheter - Exam HEENT: Normocephalic. Neck is supple. Pupils reactive. Nostrils clear. Oral cavity is moist. Neck reveals no JVD, carotid bruits, or thyromegaly. CHEST EXAMINATION: Trachea is central. Symmetrical expansion. Bibasilar diminished air entry. No wheezing or rhonchi.. CARDIAC: Normal S1, S2 with no gallops. Systolic murmur present. ABDOMEN: Soft. Bowel sounds present. Nontender. No organomegaly. No abdominal bruits. Extremities: reveal no edema. No clubbing or cyanosis Neurologically awake, alert, confused and disoriented. No gross focal neurological deficit. Skin: No rash or skin lesions. Psychiatric: Coperative. Could not be assessed.. Musculoskeletal: No joint swelling or deformity. - Labs CBC & Chem 7: 02/15/22 07:38 02/16/22 10:54 Labs: Abnormal Lab Results - Last 24 Hours (Table) 02/15/22 02/16/22 02/16/22 Range/Units 20:42 06:18 10:54 Chloride 96 L (98-107) mmol/L Carbon Dioxide 36 H (22-30) mmol/L Glucose 269 H (74-99) mg/dL POC Glucose (mg/dL) 224 H 275 H (75-99) mg/dL Calcium 8.2 L (8.4-10.2) mg/dL 02/16/22 02/16/22 Range/Units 12:04 16:37 Chloride (98-107) mmol/L Carbon Dioxide (22-30) mmol/L Glucose (74-99) mg/dL POC Glucose (mg/dL) 314 H 264 H (75-99) mg/dL Calcium (8.4-10.2) mg/dL Microbiology - Last 24 Hours (Table) 02/14/22 14:24 Urine Culture - Preliminary Urine,Voided Gram Neg Bacilli 02/14/22 18:17 Blood Culture - Preliminary Blood No Growth after 24 hours 02/14/22 18:29 Blood Culture - Preliminary Blood No Growth after 24 hours Assessment and Plan Assessment: Altered mental status due to metabolic encephalopathy Acute complicated urinary tract infection with chronic indwelling Humphrey catheter. 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 DVT prophylaxis with Lovenox subcu Plan: Patient will be continued on antibiotics in the form of ceftriaxone and follow- up urine culture report. Patient was given a dose of IV Lasix in the ER. Continue with BiPAP as tolerated. Duo nebs and follow-up culture reports. Cardiology will be con sulted due to severe aortic stenosis and CHF. GI and DVT prophylaxis. Prognosis is guarded at this time. Discussed with her at bedside in detail.
--- NOTE | 2022-02-16 19:01 | XR ---
EXAMINATION TYPE: XR chest 1V DATE OF EXAM: 02/16/2022 COMPARISON: 02/14/2022 HISTORY: Aspiration. Short of breath TECHNIQUE: FINDINGS: There is pulmonary interstitial edema. Heart is borderline enlarged. There is no pleural ef fusion. There are chest leads. IMPRESSION: There is pulmonary interstitial edema that could be congestive heart failure without allen ge compared to recent exam. Also consider interstitial pneumonia.
[2022-02-16 20:07] LABS: Glucose,Whole Blood 272 mg/dL (75-99)
[2022-02-16] MEDS ORDERED: FUROSEMIDE 10 MG/ML 4 ML VIAL IV STA ×2 (20:09→21:55)
[2022-02-16] MEDS ORDERED: QUEtiapine 25 MG TAB PO SCH (21:00)
[2022-02-16 21:24] LABS: Glucose,Whole Blood 211 mg/dL (75-99)
[2022-02-16 21:41] LABS: ABG Base Excess 14.6 mmol/L; ABG Oxygen Saturation 80.2 % (94-97); ABG PH 7.29 (7.35-7.45); ABG TCO2 44 mmol/L (19-24); Allen Test Performed? Yes
[2022-02-16 21:45] LABS: ABG HCO3 41 mmol/L (21-25); ABG PCO2 86 mmHg (35-45); ABG PO2 50 mmHg (83-108)
[2022-02-16] MEDS ORDERED: propofoL 100 ML IV ONE (21:59)
[2022-02-16 22:05] LABS: Glucose,Whole Blood 254 mg/dL (75-99)
[2022-02-16] MEDS ORDERED: ACETAMINOPHEN TAB 325 MG TAB PO PRN (22:07)
--- NOTE | 2022-02-16 22:22 | XR ---
EXAMINATION TYPE: XR chest 1V portable DATE OF EXAM: 02/16/2022 COMPARISON: Today 3 hours ago HISTORY: Short of breath TECHNIQUE: Single view FINDINGS: There is pulmonary airspace infiltrate in the midlung dee bilaterally and more on the le ft side. Heart appears enlarged. Pulmonary vascularity appears increased. There are chest leads. IMPRESSION: Increasing pulmonary edema compared to recent exam and could be worsening heart failure o r RDS.
--- NOTE | 2022-02-16 23:28 | XR ---
EXAMINATION TYPE: XR chest 1V portable DATE OF EXAM: 02/16/2022 COMPARISON: Today HISTORY: Respiratory failure TECHNIQUE: Single view FINDINGS: There is an endotracheal tube 3 cm from the earnestine. Nasogastric tube and the tip is probabl y in the distal esophagus. There is patchy pulmonary airspace edema. There are chest leads. Trachea i s midline. Bony thorax is intact. IMPRESSION: There is moderate pulmonary edema that is the same or slightly worse than exam one hour a go. Nasogastric tube is in the esophagus.
[2022-02-16 23:44] LABS: ABG Base Excess 14.4 mmol/L; ABG HCO3 39 mmol/L (21-25); ABG Oxygen Saturation 86.5 % (94-97); ABG PCO2 58 mmHg (35-45); ABG PH 7.43 (7.35-7.45); ABG TCO2 41 mmol/L (19-24)
[2022-02-16 23:48] LABS: ABG PO2 49 mmHg (83-108); Allen Test Performed? No
[2022-02-17] MEDS: NOREPINEPHRINE 4 MG in SODIUM CHLORIDE 0.9% 250 ML IV SCH ×2 (00:10→10:29)
[2022-02-17 00:14] LABS: Calcium 8.8 mg/dL (8.4-10.2); Potassium 4.1 mmol/L (3.5-5.1)
[2022-02-17] MEDS: ACETAMINOPHEN SUPPOSITORY 650 MG SUPP RECTAL PRN (04:18)
[2022-02-17 05:59] LABS: ABG Base Excess 10.6 mmol/L; ABG HCO3 34 mmol/L (21-25); ABG Oxygen Saturation 98.8 % (94-97); ABG PCO2 45 mmHg (35-45); ABG PH 7.49 (7.35-7.45); ABG PO2 103 mmHg (83-108); ABG TCO2 35 mmol/L (19-24)
[2022-02-17 06:01] LABS: Albumin 3.4 g/dL (3.5-5.0); Calcium 8.6 mg/dL (8.4-10.2); Magnesium 1.3 mg/dL (1.6-2.3); Potassium 3.9 mmol/L (3.5-5.1); Total Bilirubin 0.6 mg/dL (0.2-1.3); Total Protein 6.4 g/dL (6.3-8.2)
[2022-02-17 06:08] LABS: Allen Test Performed? No
[2022-02-17 06:19] LABS: HCT 37.5 % (34.0-46.0); HGB 11.3 gm/dL (11.4-16.0); Hypochromasia Moderate; MCHC 30.1 g/dL (31.0-37.0); MCV 96.3 fL (80.0-100.0); Mean Platelet Volume 9.1; Platelet Count 321 k/uL (150-450); RBC 3.89 m/uL (3.80-5.40); RDW 15.4 % (11.5-15.5)
[2022-02-17] MEDS: CHLORHEXIDINE GLUCONATE 15 ML CUP MUCOUS MEM SCH ×3 (06:19→20:19)
[2022-02-17] MEDS: SODIUM CHLORIDE 0.9% 1,000 ML IV SCH (06:20)
[2022-02-17] MEDS: PIPERACILLIN-TAZOBACTAM 3.375 GM in SODIUM CHLORIDE 0.9% 100 ML IVPB SCH ×4 (06:20→23:45)
[2022-02-17 06:27] LABS: Glucose,Whole Blood 289 mg/dL (75-99)
--- NOTE | 2022-02-17 06:48 | XR ---
EXAMINATION TYPE: XR chest 1V portable DATE OF EXAM: 02/17/2022 COMPARISON: 02/16/2022 HISTORY: ET tube placement TECHNIQUE: Single frontal view of the chest is obtained. FINDINGS: There is an ET tube 3.6 cm above the earnestine. There is an NG tube within the stomach. There are diffuse small airspace consolidative opacities but there appears less dense than on the omar or study. There is a probable left pleural effusion. There is no pneumothorax. The osseous structures are intact. IMPRESSION: 1. ET tube 3.6 earnestine. 2. Mild improvement in diffuse consolidative opacities
[2022-02-17] MEDS: INSULIN ASPART (NovoLOG) 100 UNIT/ML VIAL SQ SCH ×3 (06:49→17:58)
[2022-02-17] MEDS: ALBUTEROL NEBULIZED 2.5 MG/3 ML INHALATION SCH ×4 (07:20→20:50)
[2022-02-17] MEDS: BUDESONIDE 0.5 MG/2 ML NEBU INHALATION SCH ×2 (07:20→20:50)
[2022-02-17] MEDS: ASPIRIN 81 MG PO SCH (08:18)
[2022-02-17] MEDS: ATORVASTATIN 20 MG TAB PO SCH (08:18)
[2022-02-17] MEDS: ENOXAPARIN 40 MG/0.4 ML SYRINGE SQ SCH (08:18)
[2022-02-17 08:44] LABS: Band Neutrophils % 15 %; Lymphocytes # (M) 0.75 k/uL (1.0-4.8); Metamyelocytes # (M) 0.15 k/uL (0); Metamyelocytes % 1 %; Monocytes # (M) 0.45 k/uL (0-1.0); Neutrophils % (M) 77 %; Nucleated Red Blood Cells 0 /100 WBC (0-0); Poikilocytosis (M) Present; Total Cells Counted 200
[2022-02-17 08:45] LABS: Anisocytosis (M) Present
--- NOTE | 2022-02-17 09:08 | P.PN ---
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 Lifelong nonsmoker. the patient also has had previous history of recurrent UTIs, and she has a permanent Humphrey catheter in place at this point in time. she has had several hospitalizations in the past. I recently saw her in the office and she was quite stable. The patient came into the hospital becausse of altered mentation and some increased shortness of breath. the patient was seen in the ED and she was given a CAT scan of the brain that showed no acute abnormalities. her chest x-ray showed some myocardial megaly and small amount of fluid in the minor fissure and small or effusions. Otherwise other acute abnormalities have been noted. the patient's labs showed a white cell count of 7 with a hemoglobin of 10 and a platelet count of 231. Blood gases showed a pH of 7.42 with a pCO2 of 64 and pO2 113 and this was done and FiO2 of 35% I believe this was done while on the BiPAP. serum bicarb is 41 with a sodium level of 142 and a potassium level of 3.9. Glucose is 105. troponins of 0.04 and a calcium level is at 8.3. urinalysis has been abnorrmal with increased white cell count and the patient has a permanent Humphrey catheter in place due to chronic urinary retention. The is been doing bladder flushes on this patient which is reduced the frequency of UTIs. Marilee most recent UTI was related to Klebsiella pneumoniae on 12/25/2021. Prior to that the patient had other gram-negative infections including infections with Enterobacter. For now, the patient is on IV fluids. She is on a BiPAP at a pressure of 12/6 cm of water with an FiO2 of 35%. In terms of antibiotics, the patient was given IV Rocephin. On today's evaluation of 02/16/2022, the patient is feeling better. She has no new complaints. She spent the night on BiPAP and currently she is on oxygen at 4 L. No chest pain. No nausea or vomiting. She has gram-negative UTI for which is on IV Rocephin. Seems to more alert and awake compared to yesterday and less lethargic. 02/17/2022, the patient is in the intensive care unit, intubated on a mechanical ventilator. Events from yesterday were noted. The patient was essentially stable. She was being fed in the evening and she sustained a massive aspiration. Progressively she became worse and she became hypoxic and hypercapnic and altered and she was very much tachypnea respiratory rate was in the 40s. She was given a trial of BiPAP which she feels and subsequently a dmitted recommendations to intubate patient and bring her to the intensive care unit. She became also septic and hypotensive during the process. For now, the patient is intubated on a mechanical ventilator. She is currently in the intensive care unit on propofol running at 50 mcg/kg per minute. She is also on assist control mode of mechanical ventilation at the rate of 24 with a tidal volume of 400 and FiO2 of 80% with a PEEP of 15. Blood gases from this morning shows a pH of 7.49 with a pCO2 of 45 and pO2 of 103. This was not an FiO2 of 100% and currently her FiO2 is down to 80%. Meanwhile I reviewed the series of chest x-ray that was done pre-and post intubation. The most recent chest x-ray shows multilobar pneumonia worsened the left perihilar left upper and left lower lobe. ET tube is around 3 cm above the earnestine and it's adequately positioned. The patient does not have any significant air leaks. Since the patient became hypotensive, she was given IV fluids and she received a total of 2 L normal saline bolus and currently her IV fluids running at the rate of 50 mL an hour. Pressors have also been added and the patient is currently on norepinephrine at 0.04 mcg/kg per minute. Her white cell count is at 15 with a hemoglobin of 11.3. BUN is at 13 with a creatinine of 1.1 and sodium is at 135. The patient was also given IV Zosyn covering for aspiration pneumonia. Note that her origin hospitalization was for a gram-negative UTI secondary to Enterobacter and Kle bsiella and both of these microorganisms are sensitive to Zosyn. As such, the patient has been On single agent Zosyn. The patient is on Lovenox for DVT prophylaxis. The patient is also on NovoLog sliding scale coverage. Blood sugars are in the 200s range at this point in time. Objective - Vital Signs Vital signs: Vital Signs Temp 99.1 F 02/17/22 06:00 Pulse 98 02/17/22 07:47 Resp 24 02/17/22 07:47 BP 153/82 02/17/22 07:40 Pulse Ox 98 02/17/22 07:40 FiO2 80 02/17/22 07:21 Intake & Output 02/16/22 02/17/22 02/17/22 18:59 06:59 18:59 Intake Total 700 404.012 290.502 Output Total 700 380 20 Balance 0 24.012 270.502 Intake: Intake, IV Titration 404.012 290.502 Amount Norepinephrine 4 mg In 168.889 Sodium Chloride 0.9% 250 ml @ 0.05 MCG/KG/MIN 20. 765 mls/hr IV .[id number] [facility] Rx#:[id number] Sodium Chloride 0.9% 1, 250 50 000 ml @ 50 mls/hr IV . Q20H [facility] Rx#:[id number] propofoL 1,000 mg In 154.012 71.613 Empty Bag 1 bag @ 5 MCG/ KG/MIN 3.27 mls/hr IV . Q24H [facility] Rx#:[id number] Oral 700 Output: Urine 700 380 20 Other: Voiding Method Indwelling Catheter Indwelling Catheter ABP, PAP, CO, CI - Last Documented Arterial Blood Pressure 112/57 - Exam GENERAL EXAM: Alert, pleasant, 66-year-old female patient, sedated and the patient is calm and comfortable intubated on a mechanical ventilator. Orogastric and orotracheal tube are both in place. HEAD: Normocephalic. EYES: Normal reaction of pupils, equal size. NOSE: Clear with pink turbinates. THROAT: No erythema or exudates. NECK: No masses, no JVD. CHEST: No chest wall deformity. LUNGS: Equal air entry with crackles in the posterior bases. CVS: S1 and S2 normal with no audible murmur, regular rhythm. ABDOMEN: No hepatosplenomegaly, normal bowel sounds, no guarding or rigidity. SPINE: No scoliosis or deformity SKIN: No rashes CENTRAL NERVOUS SYSTEM: Rated on propofol and the neurologic exam is limited. The patient has anisocoria related to her underlying neurologic deficits in the pupils are asymmetric at this point in time. There is a chronic finding. EXTREMITIES: There is no peripheral edema. No clubbing, no cyanosis. Peripheral pulses are intact. - Labs CBC & Chem 7: 02/17/22 05:25 02/17/22 05:25 Labs: Abnormal Lab Results - Last 24 Hours (Table) 02/16/22 02/16/22 02/16/22 Range/Units 10:54 12:04 16:37 WBC (3.8-10.6) k/uL Hgb (11.4-16.0) gm/dL MCHC (31.0-37.0) g/dL Neutrophils # (Manual) (1.3-7.7) k/uL Lymphocytes # (Manual) (1.0-4.8) k/uL Metamyelocytes # (Man) (0) k/uL ABG pH (7.35-7.45) ABG pCO2 (35-45) mmHg ABG pO2 (83-108) mmHg ABG HCO3 (21-25) mmol/L ABG Total CO2 (19-24) mmol/L ABG O2 Saturation (94-97) % Sodium (137-145) mmol/L Chloride 96 L (98-107) mmol/L Carbon Dioxide 36 H (22-30) mmol/L Creatinine (0.52-1.04) mg/dL Glucose 269 H (74-99) mg/dL POC Glucose (mg/dL) 314 H 264 H (75-99) mg/dL Calcium 8.2 L (8.4-10.2) mg/dL Magnesium (1.6-2.3) mg/dL Albumin (3.5-5.0) g/dL 02/16/22 02/16/22 02/16/22 Range/Units 20:03 21:22 21:38 WBC (3.8-10.6) k/uL Hgb (11.4-16.0) gm/dL MCHC (31.0-37.0) g/dL Neutrophils # (Manual) (1.3-7.7) k/uL Lymphocytes # (Manual) (1.0-4.8) k/uL Metamyelocytes # (Man) (0) k/uL ABG pH 7.29 L (7.35-7.45) ABG pCO2 86 H* (35-45) mmHg ABG pO2 50 L* (83-108) mmHg ABG HCO3 41 H* (21-25) mmol/L ABG Total CO2 44 H (19-24) mmol/L ABG O2 Saturation 80.2 L (94-97) % Sodium (137-145) mmol/L Chloride (98-107) mmol/L Carbon Dioxide (22-30) mmol/L Creatinine (0.52-1.04) mg/dL Glucose (74-99) mg/dL POC Glucose (mg/dL) 272 H 211 H (75-99) mg/dL Calcium (8.4-10.2) mg/dL Magnesium (1.6-2.3) mg/dL Albumin (3.5-5.0) g/dL 02/16/22 02/16/22 02/16/22 Range/Units 22:03 23:14 23:37 WBC (3.8-10.6) k/uL Hgb (11.4-16.0) gm/dL MCHC (31.0-37.0) g/dL Neutrophils # (Manual) (1.3-7.7) k/uL Lymphocytes # (Manual) (1.0-4.8) k/uL Metamyelocytes # (Man) (0) k/uL ABG pH (7.35-7.45) ABG pCO2 58 H (35-45) mmHg ABG pO2 49 L* (83-108) mmHg ABG HCO3 39 H (21-25) mmol/L ABG Total CO2 41 H (19-24) mmol/L ABG O2 Saturation 86.5 L (94-97) % Sodium (137-145) mmol/L Chloride 93 L (98-107) mmol/L Carbon Dioxide 39 H (22-30) mmol/L Creatinine (0.52-1.04) mg/dL Glucose 174 H (74-99) mg/dL POC Glucose (mg/dL) 254 H (75-99) mg/dL Calcium (8.4-10.2) mg/dL Magnesium (1.6-2.3) mg/dL Albumin (3.5-5.0) g/dL 02/17/22 02/17/22 02/17/22 Range/Units 05:25 05:25 05:30 WBC 15.0 H (3.8-10.6) k/uL Hgb 11.3 L (11.4-16.0) gm/dL MCHC 30.1 L (31.0-37.0) g/dL Neutrophils # (Manual) 13.80 H (1.3-7.7) k/uL Lymphocytes # (Manual) 0.75 L (1.0-4.8) k/uL Metamyelocytes # (Man) 0.15 H (0) k/uL ABG pH 7.49 H (7.35-7.45) ABG pCO2 (35-45) mmHg ABG pO2 (83-108) mmHg ABG HCO3 34 H (21-25) mmol/L ABG Total CO2 35 H (19-24) mmol/L ABG O2 Saturation 98.8 H (94-97) % Sodium 135 L (137-145) mmol/L Chloride 93 L (98-107) mmol/L Carbon Dioxide 33 H (22-30) mmol/L Creatinine 1.12 H (0.52-1.04) mg/dL Glucose 276 H (74-99) mg/dL POC Glucose (mg/dL) (75-99) mg/dL Calcium (8.4-10.2) mg/dL Magnesium 1.3 L (1.6-2.3) mg/dL Albumin 3.4 L (3.5-5.0) g/dL 02/17/22 Range/Units 06:26 WBC (3.8-10.6) k/uL Hgb (11.4-16.0) gm/dL MCHC (31.0-37.0) g/dL Neutrophils # (Manual) (1.3-7.7) k/uL Lymphocytes # (Manual) (1.0-4.8) k/uL Metamyelocytes # (Man) (0) k/uL ABG pH (7.35-7.45) ABG pCO2 (35-45) mmHg ABG pO2 (83-108) mmHg ABG HCO3 (21-25) mmol/L ABG Total CO2 (19-24) mmol/L ABG O2 Saturation (94-97) % Sodium (137-145) mmol/L Chloride (98-107) mmol/L Carbon Dioxide (22-30) mmol/L Creatinine (0.52-1.04) mg/dL Glucose (74-99) mg/dL POC Glucose (mg/dL) 289 H (75-99) mg/dL Calcium (8.4-10.2) mg/dL Magnesium (1.6-2.3) mg/dL Albumin (3.5-5.0) g/dL Microbiology - Last 24 Hours (Table) 02/14/22 14:24 Urine Culture - Final Urine,Voided Enterobacter cloacae Klebsiella pneumoniae 02/14/22 18:29 Blood Culture - Preliminary Blood No Growth after 48 hours 02/14/22 18:17 Blood Culture - Preliminary Blood No Growth after 48 hours Assessment and Plan Plan: Acute Hypoxic respiratory failure, currently intubated on a mechanical ventilator with mild thigh lobar pneumonia worse on the left compared to the right following an episode of aspiration. The patient is currently intubated on a mechanical ventilator, sedated and covered with IV Zosyn. The chest x-ray was noted. The blood gas was noted. There is a component of respiratory alkalosis nontender the patient is a chronic CO2 retainer. Mrs. a ventilator changes will be done. Gram-negative UTI with Enterobacter and Klebsiella Altered mentation secondary to above. The patient's original hospitalization was for UTI-induced mental status change and the patient was being adequately treated. Infected condition was stable prior to this episode of aspiration or respiratory failure. Hypotension secondary to sepsis/shock currently on low-dose pressors. Note that the patient has also severe aortic stenosis contributing to her hypotension. Fever secondary to above. T-max was 102.1. 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 and obvious demyelination and degeneration in the cerebellum and portions of the brain stem Diabetes mellitus Chronic urinary incontinence with previous chronic indwelling Humphrey catheter Hypertension Hyperlipidemia Obstructive sleep apnea maintained on CPAP History of bowel resection with colostomy History of chronic urinary incontinence and chronic Humphrey catheter with previous frequent UTIs History of sarcoidosis Poor overall functional performance based on the above-mentioned multiple comorbidities, requires electric wheelchair Plan: Continue ventilator support Dropped a respiratory rate down to 16 and a tidal volume down to 375 Repeated blood gases probably sometime around 1300 Continue IV Zosyn and add vancomycin for hospital-acquired pathogens including staph and gram-negative Check sputum Gram stain and culture Resuscitated with IV fluids and currently on low-dose pressors Proceed with insertion of a triple-lumen catheter Initiate enteral feeding for nutritional support Give Levemir insulin 10 units along with that the patient will receive sliding scale insulin coverage Lovenox for DVT prophylaxis Condition is critical for now. Family is aware. We'll have further discussion with the family. We'll continue to follow make further recommendations. This is a critically care evaluation Time with Patient: Greater than 30
--- NOTE | 2022-02-17 09:28 | P.PCN ---
Date of Procedure: 02/17/22 Postoperative Diagnosis: Pneumonia, septic shock Procedure(s) Performed: Pneumonia septic shock Implants: Central line insertion Anesthesia: local Surgeon: Nolan Irby Estimated Blood Loss (ml): 0 Pathology: other Condition: critical Disposition: ICU Operative Findings: Indication: Hemodynamic monitoring/Intravenous access. A time-out was completed verifying correct patient, procedure, site, positioning, and implant(s) or special equipment if applicable. The patient was placed in a dependent position appropriate for central line placement based on the vein to be cannulated. The patients right groin was prepped and draped in sterile fashion. 1% Lidocaine was used to anesthetize the surrounding skin area. A triple lumen 9F Cordis catheter was introduced into the common femoral vein using Seldinger technique. The catheter was threaded smoothly over the guide wire and appropriate blood return was obtained. Each lumen of the catheter was evacuated of air and flushed with sterile saline. The catheter was then sutured in place to the skin and a sterile dressing applied. Perfusion to the extremity distal to the point of catheter insertion was checked and found to be adequate. The patient tolerated the procedure well and there were no complications.
[2022-02-17] MEDS ORDERED: VANCOMYCIN IV PER PHARMACY 1 EACH MISC MISCELLANE PRN (10:08)
[2022-02-17] MEDS: IMIPRAMINE 25 MG TAB PO SCH ×2 (10:28→20:47)
[2022-02-17] MEDS ORDERED: VANCOMYCIN 2,250 MG in SODIUM CHLORIDE 0.9% 500 ML 500 ML IVPB ONE (11:00)
[2022-02-17 12:54] LABS: Glucose,Whole Blood 356 mg/dL (75-99)
[2022-02-17 15:53] LABS: ABG Base Excess 11.8 mmol/L; ABG HCO3 36 mmol/L (21-25); ABG Oxygen Saturation 98.2 % (94-97); ABG PCO2 54 mmHg (35-45); ABG PH 7.44 (7.35-7.45); ABG PO2 117 mmHg (83-108); ABG TCO2 38 mmol/L (19-24); Allen Test Performed? Yes
[2022-02-17 17:30] LABS: Glucose,Whole Blood 323 mg/dL (75-99)
[2022-02-17] MEDS: INSULIN DETEMIR (LEVEMIR) 100 UNIT/ML SYR SQ SCH (20:19)
--- NOTE | 2022-02-17 22:44 | P.PN ---
Subjective Progress Note Date: 02/17/22 Principal diagnosis: Altered mental status due to metabolic encephalopathy Acute complicated urinary tract infection with chronic indwelling Humphrey catheter. 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 Patient cannot provide any history at this time. According to her at bedside patient has been having altered mentation for the past 3 days and has not been eating. Patient is also having worsening dyspnea. She was brought to the hospital by EMS. Patient has been afebrile. No episodes of vomiting. No diarrhea. No complaints of chest pain. Patient does have previous history of Klebsiella pneumonia urinary tract infection. Chest x-ray showed correlate for CHF. Otherwise consider interstitial pneumonia or atypical pneumonia. CT head showed no acute intracranial hemorrhage or gross acute cortical infarct. EKG showed sinus rhythm. Laboratory data showed WBC 9.0 hemoglobin 10.7 and platelets 260 Lymphocytes 0.8 Sodium 137 potassium 4.7 chloride 99 bicarb is 35 BUN 11 and creatinine 0.74 Calcium 8.2, radiation 1.8 and troponin 0.037, 0.043 and proBNP 1600 Urinalysis showed turbid with 2+ protein trace ketones large blood nitrite negative leukocyte esterase large and elevated RBCs and WBCs. 02/16/2022 the patient is seen and evaluated in room at bedside; reports feeling better. She has no new complaints. She spent the night on BiPAP and currently she is on oxygen at 4 L. No chest pain. No nausea or vomiting. She has gram-negative UTI for which is on IV Rocephin. Seems to more alert and awake compared to yesterday and less lethargic. Mental status is improving We will plan to continue all current management; patient will continue to use BiPAP overnight with O2 at 4 L per nasal cannula during daytime 40 catheter to remain in place and be replaced every 3 weeks; Patient will continue with IV Rocephin until final urine culture is available 02/17/2022 Patient is currently in the MICU. intubated, on mechanical ventilator. Patient was transferred to MICU after an episode of massive aspiration and patient became hypoxic and hypercapnic and tachypneic. Patient was placed on BiPAP and subsequently intubated and is on mechanical ventilator now. Chest x-ray today showed ET tube 3.6 cm from the earnestine. Mild improvement of diffuse consolidative opacities. Patient is being continued on antibiotics in the form of Zosyn. Otherwise urine culture showed Enterobacter and Klebsiella pneumonia. Patient was initially on ceftriaxone which is sensitive to both organisms with antibiotics changed to Zosyn due to aspiration pneumonia. Laboratory test showed WBC 15.0 hemoglobin 11.3 and platelets 321 Sodium 135 potassium 3.9 chloride 93 bicarb is 33 BUN 13 and creatinine 1.12 and albumin 3.4. Current medications reviewed. Objective - Vital Signs Vital signs: Vital Signs Temp 99.1 F 02/17/22 06:00 Pulse 98 02/17/22 07:47 Resp 24 02/17/22 07:47 BP 153/82 02/17/22 07:40 Pulse Ox 98 02/17/22 07:40 FiO2 80 02/17/22 07:21 Intake & Output 02/16/22 02/17/22 02/17/22 18:59 06:59 18:59 Intake Total 700 404.012 290.502 Output Total 700 380 20 Balance 0 24.012 270.502 Intake: Intake, IV Titration 404.012 290.502 Amount Norepinephrine 4 mg In 168.889 Sodium Chloride 0.9% 250 ml @ 0.05 MCG/KG/MIN 20. 765 mls/hr IV .[id number] [facility] Rx#:[id number] Sodium Chloride 0.9% 1, 250 50 000 ml @ 50 mls/hr IV . Q20H [facility] Rx#:[id number] propofoL 1,000 mg In 154.012 71.613 Empty Bag 1 bag @ 5 MCG/ KG/MIN 3.27 mls/hr IV . Q24H [facility] Rx#:[id number] Oral 700 Output: Urine 700 380 20 Other: Voiding Method Indwelling Catheter Indwelling Catheter ABP, PAP, CO, CI - Last Documented Arterial Blood Pressure 112/57 - Exam PHYSICAL EXAMINATION: Patient is lying in the bed patient is mechanically ventilated and sedated. Morbidly obese. HEENT: Normocephalic. Neck is supple. Pupils reactive. Nostrils clear. Oral cavity is moist. Neck reveals no JVD, carotid bruits, or thyromegaly. CHEST EXAMINATION: Trachea is central. Symmetrical expansion. Left basilar aircraft fueler ckles. Lung dee clear to auscultation and percussion. On mechanical ventilator. CARDIAC: Normal S1, S2 with no gallops. No murmurs ABDOMEN: Soft. Bowel sounds present. Nontender. No organomegaly. No abdominal bruits. Extremities: reveal no edema. No clubbing or cyanosis Neurologically patient is sedated intubated. No gross focal deficits noted Skin: No rash or skin lesions. Psychiatric: Could not be assessed.. Musculoskeletal: No joint swelling or deformity. - Labs CBC & Chem 7: 02/17/22 05:25 02/17/22 05:25 Labs: Abnormal Lab Results - Last 24 Hours (Table) 02/16/22 02/16/22 02/16/22 Range/Units 10:54 12:04 16:37 WBC (3.8-10.6) k/uL Hgb (11.4-16.0) gm/dL MCHC (31.0-37.0) g/dL Neutrophils # (Manual) (1.3-7.7) k/uL Lymphocytes # (Manual) (1.0-4.8) k/uL Metamyelocytes # (Man) (0) k/uL ABG pH (7.35-7.45) ABG pCO2 (35-45) mmHg ABG pO2 (83-108) mmHg ABG HCO3 (21-25) mmol/L ABG Total CO2 (19-24) mmol/L ABG O2 Saturation (94-97) % Sodium (137-145) mmol/L Chloride 96 L (98-107) mmol/L Carbon Dioxide 36 H (22-30) mmol/L Creatinine (0.52-1.04) mg/dL Glucose 269 H (74-99) mg/dL POC Glucose (mg/dL) 314 H 264 H (75-99) mg/dL Calcium 8.2 L (8.4-10.2) mg/dL Magnesium (1.6-2.3) mg/dL Albumin (3.5-5.0) g/dL 02/16/22 02/16/22 02/16/22 Range/Units 20:03 21:22 21:38 WBC (3.8-10.6) k/uL Hgb (11.4-16.0) gm/dL MCHC (31.0-37.0) g/dL Neutrophils # (Manual) (1.3-7.7) k/uL Lymphocytes # (Manual) (1.0-4.8) k/uL Metamyelocytes # (Man) (0) k/uL ABG pH 7.29 L (7.35-7.45) ABG pCO2 86 H* (35-45) mmHg ABG pO2 50 L* (83-108) mmHg ABG HCO3 41 H* (21-25) mmol/L ABG Total CO2 44 H (19-24) mmol/L ABG O2 Saturation 80.2 L (94-97) % Sodium (137-145) mmol/L Chloride (98-107) mmol/L Carbon Dioxide (22-30) mmol/L Creatinine (0.52-1.04) mg/dL Glucose (74-99) mg/dL POC Glucose (mg/dL) 272 H 211 H (75-99) mg/dL Calcium (8.4-10.2) mg/dL Magnesium (1.6-2.3) mg/dL Albumin (3.5-5.0) g/dL 02/16/22 02/16/22 02/16/22 Range/Units 22:03 23:14 23:37 WBC (3.8-10.6) k/uL Hgb (11.4-16.0) gm/dL MCHC (31.0-37.0) g/dL Neutrophils # (Manual) (1.3-7.7) k/uL Lymphocytes # (Manual) (1.0-4.8) k/uL Metamyelocytes # (Man) (0) k/uL ABG pH (7.35-7.45) ABG pCO2 58 H (35-45) mmHg ABG pO2 49 L* (83-108) mmHg ABG HCO3 39 H (21-25) mmol/L ABG Total CO2 41 H (19-24) mmol/L ABG O2 Saturation 86.5 L (94-97) % Sodium (137-145) mmol/L Chloride 93 L (98-107) mmol/L Carbon Dioxide 39 H (22-30) mmol/L Creatinine (0.52-1.04) mg/dL Glucose 174 H (74-99) mg/dL POC Glucose (mg/dL) 254 H (75-99) mg/dL Calcium (8.4-10.2) mg/dL Magnesium (1.6-2.3) mg/dL Albumin (3.5-5.0) g/dL 02/17/22 02/17/22 02/17/22 Range/Units 05:25 05:25 05:30 WBC 15.0 H (3.8-10.6) k/uL Hgb 11.3 L (11.4-16.0) gm/dL MCHC 30.1 L (31.0-37.0) g/dL Neutrophils # (Manual) 13.80 H (1.3-7.7) k/uL Lymphocytes # (Manual) 0.75 L (1.0-4.8) k/uL Metamyelocytes # (Man) 0.15 H (0) k/uL ABG pH 7.49 H (7.35-7.45) ABG pCO2 (35-45) mmHg ABG pO2 (83-108) mmHg ABG HCO3 34 H (21-25) mmol/L ABG Total CO2 35 H (19-24) mmol/L ABG O2 Saturation 98.8 H (94-97) % Sodium 135 L (137-145) mmol/L Chloride 93 L (98-107) mmol/L Carbon Dioxide 33 H (22-30) mmol/L Creatinine 1.12 H (0.52-1.04) mg/dL Glucose 276 H (74-99) mg/dL POC Glucose (mg/dL) (75-99) mg/dL Calcium (8.4-10.2) mg/dL Magnesium 1.3 L (1.6-2.3) mg/dL Albumin 3.4 L (3.5-5.0) g/dL 02/17/22 Range/Units 06:26 WBC (3.8-10.6) k/uL Hgb (11.4-16.0) gm/dL MCHC (31.0-37.0) g/dL Neutrophils # (Manual) (1.3-7.7) k/uL Lymphocytes # (Manual) (1.0-4.8) k/uL Metamyelocytes # (Man) (0) k/uL ABG pH (7.35-7.45) ABG pCO2 (35-45) mmHg ABG pO2 (83-108) mmHg ABG HCO3 (21-25) mmol/L ABG Total CO2 (19-24) mmol/L ABG O2 Saturation (94-97) % Sodium (137-145) mmol/L Chloride (98-107) mmol/L Carbon Dioxide (22-30) mmol/L Creatinine (0.52-1.04) mg/dL Glucose (74-99) mg/dL POC Glucose (mg/dL) 289 H (75-99) mg/dL Calcium (8.4-10.2) mg/dL Magnesium (1.6-2.3) mg/dL Albumin (3.5-5.0) g/dL Microbiology - Last 24 Hours (Table) 02/14/22 14:24 Urine Culture - Final Urine,Voided Enterobacter cloacae Klebsiella pneumoniae 02/14/22 18:29 Blood Culture - Preliminary Blood No Growth after 48 hours 02/14/22 18:17 Blood Culture - Preliminary Blood No Growth after 48 hours Assessment and Plan Assessment: Acute hypoxic respiratory failure secondary to aspiration pneumonia. Currently requiring mechanical ventilator. Patient had an episode of aspiration and was transferred to MICU. Sepsis/septic shock requiring pressor support. Altered mental status due to metabolic encephalopathy due to infection Acute complicated urinary tract infection with chronic indwelling Humphrey catheter on admission. Acute on chronic CHF with preserved ejection fraction Elevated troponin level likely demand ischemia Morbid obesity obesity hypoventilation Moderate to severe bicuspid aortic stenosis. 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 DVT prophylaxis with Lovenox subcu Plan: Patient is currently on mechanical ventilator. Requiring low-dose pressor s upport. Continue with antibiotics for now Zosyn and vancomycin was added. Follow-up sputum culture report. Patient with current insulin sliding scale and titrate insulin regimen. Continue with GI and DVT prophylaxis. Prognosis is guarded at this time. Critical care team is on board. Continue to follow closely. Time with Patient: Greater than 30
[2022-02-18] MEDS: NOREPINEPHRINE 4 MG in SODIUM CHLORIDE 0.9% 250 ML IV SCH ×2 (00:09→14:52)
[2022-02-18 00:29] LABS: Glucose,Whole Blood 258 mg/dL (75-99)
[2022-02-18] MEDS: INSULIN ASPART (NovoLOG) 100 UNIT/ML VIAL SQ SCH ×5 (00:31→23:51)
[2022-02-18] MEDS: SODIUM CHLORIDE 0.9% 1,000 ML IV SCH ×2 (01:00→23:52)
[2022-02-18 04:23] LABS: ABG Base Excess 10.8 mmol/L; ABG HCO3 36 mmol/L (21-25); ABG Oxygen Saturation 98.7 % (94-97); ABG PCO2 58 mmHg (35-45); ABG PO2 114 mmHg (83-108); ABG TCO2 37 mmol/L (19-24)
[2022-02-18 04:46] LABS: HCT 30.4 % (34.0-46.0); Hypochromasia Marked; MCH 29.2 pg (25.0-35.0); MCHC 30.1 g/dL (31.0-37.0); MCV 96.7 fL (80.0-100.0); Mean Platelet Volume 9.4; Platelet Count 257 k/uL (150-450); RBC 3.15 m/uL (3.80-5.40); RDW 15.9 % (11.5-15.5); WBC 13.3 k/uL (3.8-10.6)
[2022-02-18 04:48] LABS: HGB 9.2 gm/dL (11.4-16.0)
[2022-02-18 04:55] LABS: Allen Test Performed? no
[2022-02-18 05:44] LABS: Glucose,Whole Blood 267 mg/dL (75-99)
[2022-02-18 06:26] LABS: Potassium 3.6 mmol/L (3.5-5.1)
[2022-02-18] MEDS ORDERED: Potassium Replacement Protocol 1 EACH MISC MISCELLANE PRN (06:53)
[2022-02-18] MEDS: POTASSIUM CHLORIDE 10 MEQ in WATER FOR INJECTION 1 100ML.BAG IVPB SCH ×2 (07:01→08:15)
[2022-02-18] MEDS: ALBUTEROL NEBULIZED 2.5 MG/3 ML INHALATION SCH ×4 (07:09→20:00)
[2022-02-18] MEDS: BUDESONIDE 0.5 MG/2 ML NEBU INHALATION SCH ×2 (07:09→20:00)
--- NOTE | 2022-02-18 08:11 | XR ---
EXAMINATION TYPE: XR chest 1V portable DATE OF EXAM: 02/18/2022 COMPARISON: X-ray dated 02/17/2022 HISTORY: Tube placement TECHNIQUE: Single frontal view of the chest is obtained. FINDINGS: The tip of the endotracheal tube is about 3.2 cm proximal to the earnestine. NG tube is seen with the tip is inferior to the diaphragm. Persistent bilateral pulmonary patchy opacities, slightly improved. Questionable left pleural effusio n. Unchanged cardiomediastinal silhouette and bony thoracic cage. IMPRESSION: As above.
[2022-02-18] MEDS: PIPERACILLIN-TAZOBACTAM 3.375 GM in SODIUM CHLORIDE 0.9% 100 ML IVPB SCH ×3 (08:15→23:51)
[2022-02-18] MEDS: CHLORHEXIDINE GLUCONATE 15 ML CUP MUCOUS MEM SCH ×2 (08:15→20:57)
[2022-02-18] MEDS: ENOXAPARIN 40 MG/0.4 ML SYRINGE SQ SCH (08:15)
[2022-02-18] MEDS: ASPIRIN 81 MG PO SCH (08:16)
[2022-02-18] MEDS: ATORVASTATIN 20 MG TAB PO SCH (08:16)
[2022-02-18] MEDS: IMIPRAMINE 25 MG TAB PO SCH ×2 (08:17→20:56)
[2022-02-18] MEDS: FUROSEMIDE 10 MG/ML 4 ML VIAL IV SCH (10:22)
[2022-02-18] MEDS: VANCOMYCIN 2,000 MG in SODIUM CHLORIDE 0.9% 500 ML 500 ML IVPB SCH (10:22)
--- NOTE | 2022-02-18 11:11 | P.PN ---
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 Lifelong nonsmoker. the patient also has had previous history of recurrent UTIs, and she has a permanent Humphrey catheter in place at this point in time. she has had several hospitalizations in the past. I recently saw her in the office and she was quite stable. The patient came into the hospital becausse of altered mentation and some increased shortness of breath. the patient was seen in the ED and she was given a CAT scan of the brain that showed no acute abnormalities. her chest x-ray showed some myocardial megaly and small amount of fluid in the minor fissure and small or effusions. Otherwise other acute abnormalities have been noted. the patient's labs showed a white cell count of 7 with a hemoglobin of 10 and a platelet count of 231. Blood gases showed a pH of 7.42 with a pCO2 of 64 and pO2 113 and this was done and FiO2 of 35% I believe this was done while on the BiPAP. serum bicarb is 41 with a sodium level of 142 and a potassium level of 3.9. Glucose is 105. troponins of 0.04 and a calcium level is at 8.3. urinalysis has been abnorrmal with increased white cell count and the patient has a permanent Humphrey catheter in place due to chronic urinary retention. The is been doing bladder flushes on this patient which is reduced the frequency of UTIs. Marilee most recent UTI was related to Klebsiella pneumoniae on 12/25/2021. Prior to that the patient had other gram-negative infections including infections with Enterobacter. For now, the patient is on IV fluids. She is on a BiPAP at a pressure of 12/6 cm of water with an FiO2 of 35%. In terms of antibiotics, the patient was given IV Rocephin. On today's evaluation of 02/16/2022, the patient is feeling better. She has no new complaints. She spent the night on BiPAP and currently she is on oxygen at 4 L. No chest pain. No nausea or vomiting. She has gram-negative UTI for which is on IV Rocephin. Seems to more alert and awake compared to yesterday and less lethargic. 02/17/2022, the patient is in the intensive care unit, intubated on a mechanical ventilator. Events from yesterday were noted. The patient was essentially stable. She was being fed in the evening and she sustained a massive a spiration. Progressively she became worse and she became hypoxic and hypercapnic and altered and she was very much tachypnea respiratory rate was in the 40s. She was given a trial of BiPAP which she feels and subsequently admitted recommendations to intubate patient and bring her to the intensive care unit. She became also septic and hypotensive during the process. For now, the patient is intubated on a mechanical ventilator. She is currently in the intensive care unit on propofol running at 50 mcg/kg per minute. She is also on assist control mode of mechanical ventilation at the rate of 24 with a tidal volume of 400 and FiO2 of 80% with a PEEP of 15. Blood gases from this morning shows a pH of 7.49 with a pCO2 of 45 and pO2 of 103. This was not an FiO2 of 100% and currently her FiO2 is down to 80%. Meanwhile I reviewed the series of chest x-ray that was done pre-and post intubation. The most recent chest x-ray shows multilobar pneumonia worsened the left perihilar left upper and left lower lobe. ET tube is around 3 cm above the earnestine and it's adequately positioned. The patient does not have any significant air leaks. Since the patient became hypotensive, she was given IV fluids and she received a total of 2 L normal saline bolus and currently her IV fluids running at the rate of 50 mL an hour. Pressors have also been added and the patient is currently on norepinephrine at 0.04 mcg/kg per minute. Her white cell count is at 15 with a hemoglobin of 11.3. BUN is at 13 with a creatinine of 1.1 and sodium is at 135. The patient was also given IV Zosyn covering for aspiration pneumonia. Note that her origin hospitalization was for a gram-negative UTI secondary to Enterobacter and Klebsiella and both of these microorganisms are sensitive to Zosyn. As such, the patient has been On single agent Zosyn. The patient is on Lovenox for DVT prophylaxis. The patient is also on NovoLog sliding scale coverage. Blood sugars are in the 200s range at this point in time. Patient was reevaluated on 02/18/22, patient remains in the ICU, intubated and mechanically ventilated. She is on assist control rate of 16 per volume 375 FiO2 40% PEEP of 15. However after evaluating the patient, I changed her ventilator settings to FiO2 of 45%, PEEP down to 12, respiration down to 12. And tidal volume was increased to 400. Patient had an ABG earlier today showed a pO2 of 114 pCO2 58 pH of 7.40 and looking at the bicarb on her initial presentation, it was relatively high, I believe the patient may have some underlying hypercapnia, and her pCO2 is likely in the high 50s normally. Patient is on propofol at 50 mcg/kg/m, she went off norepinephrine earlier this morning, she has IV fluid at 50 mL per hour in the form of 0.9 normal saline. She will be started on tube feeding today. Patient remains on Zosyn and vancomycin, she continues to have bilateral infiltrates consistent with aspiration pneumonia. WBC count today is 13.3 hemoglobin is 9.2. Basic metabol ic profile is normal bicarb is 34.. Profile is normal. Blood sugar is 247. Urine cultures are positive for Enterobacter cloacae and Klebsiella pneumoniae and these cultures are from 02/14/22. Objective - Vital Signs Vital signs: Vital Signs Temp 98.6 F 02/18/22 04:00 Pulse 95 02/18/22 10:00 Resp 16 02/18/22 10:00 BP 136/60 02/18/22 09:00 Pulse Ox 95 02/18/22 10:00 FiO2 45 02/18/22 10:00 Intake & Output 02/17/22 02/18/22 02/18/22 18:59 06:59 18:59 Intake Total 0118.654 8317.378 536.508 Output Total 385 720 285 Balance 1221.708 693.378 251.508 Weight 121.9 kg 121.7 kg Intake: IV 917 775 402 Piperacillin-Tazobactam 3 200 175 75 .375 gm In Sodium Chloride 0.9% 100 ml @ 25 mls/hr IVPB Q8HR [facility] Rx# :[id number] Sodium Chloride 0.9% 1, 550 600 160 000 ml @ 10 mls/hr IV . Q24H [facility] Rx#:[id number] Vancomycin 2,250 mg In 167 167 Sodium Chloride 0.9% 500 ml 500 ml @ 167 mls/hr IVPB ONCE ONE Rx#: [id number] Intake, IV Titration 689.708 638.378 134.508 Amount Norepinephrine 4 mg In 317.286 226.903 36.408 Sodium Chloride 0.9% 250 ml @ 0.05 MCG/KG/MIN 20. 765 mls/hr IV .[id number] [facility] Rx#:[id number] Sodium Chloride 0.9% 1, 50 000 ml @ 10 mls/hr IV . Q24H [facility] Rx#:[id number] propofoL 1,000 mg In 322.422 411.475 98.10 Empty Bag 1 bag @ 5 MCG/ KG/MIN 3.27 mls/hr IV . Q24H [facility] Rx#:[id number] Output: Urine 385 720 285 Other: Voiding Method Indwelling Catheter Indwelling Catheter ABP, PAP, CO, CI - Last Documented Arterial Blood Pressure 114/58 - Exam GENERAL EXAM: Revealed a 66-year-old female, obese, intubated, sedated, calm, HEAD: Normocephalic. Endotracheal tube and orogastric tube are intact. EYES: Normal reaction of pupils, equal size. NOSE: Clear with pink turbinates. THROAT: No erythema or exudates. NECK: No masses, no JVD. Short obese neck is noted. CHEST: No chest wall deformity. LUNGS: Symmetrical chest expansion, crackles at the bases. No rhonchi no wheezes. CVS: Distant S1 and S2 normal with no audible murmur, regular rhythm. ABDOMEN: No hepatosplenomegaly, normal bowel sounds, no guarding or rigidity. SKIN: No rashes CENTRAL NERVOUS SYSTEM: Cannot assess, patient is sedated, on propofol. EXTREMITIES: No clubbing edema or cyanosis. - Labs CBC & Chem 7: 02/18/22 04:17 02/18/22 04:17 Labs: Abnormal Lab Results - Last 24 Hours (Table) 02/17/22 02/17/22 02/17/22 Range/Units 12:53 15:45 17:29 WBC (3.8-10.6) k/uL RBC (3.80-5.40) m/uL Hgb (11.4-16.0) gm/dL Hct (34.0-46.0) % MCHC (31.0-37.0) g/dL RDW (11.5-15.5) % ABG pCO2 54 H (35-45) mmHg ABG pO2 117 H (83-108) mmHg ABG HCO3 36 H (21-25) mmol/L ABG Total CO2 38 H (19-24) mmol/L ABG O2 Saturation 98.2 H (94-97) % Carbon Dioxide (22-30) mmol/L Glucose (74-99) mg/dL POC Glucose (mg/dL) 356 H 323 H (75-99) mg/dL Calcium (8.4-10.2) mg/dL 02/18/22 02/18/22 02/18/22 Range/Units 00:27 04:17 04:17 WBC 13.3 H (3.8-10.6) k/uL RBC 3.15 L (3.80-5.40) m/uL Hgb 9.2 L D (11.4-16.0) gm/dL Hct 30.4 L (34.0-46.0) % MCHC 30.1 L (31.0-37.0) g/dL RDW 15.9 H (11.5-15.5) % ABG pCO2 (35-45) mmHg ABG pO2 (83-108) mmHg ABG HCO3 (21-25) mmol/L ABG Total CO2 (19-24) mmol/L ABG O2 Saturation (94-97) % Carbon Dioxide 34 H (22-30) mmol/L Glucose 247 H (74-99) mg/dL POC Glucose (mg/dL) 258 H (75-99) mg/dL Calcium 8.0 L (8.4-10.2) mg/dL 02/18/22 02/18/22 Range/Units 04:22 05:42 WBC (3.8-10.6) k/uL RBC (3.80-5.40) m/uL Hgb (11.4-16.0) gm/dL Hct (34.0-46.0) % MCHC (31.0-37.0) g/dL RDW (11.5-15.5) % ABG pCO2 58 H (35-45) mmHg ABG pO2 114 H (83-108) mmHg ABG HCO3 36 H (21-25) mmol/L ABG Total CO2 37 H (19-24) mmol/L ABG O2 Saturation 98.7 H (94-97) % Carbon Dioxide (22-30) mmol/L Glucose (74-99) mg/dL POC Glucose (mg/dL) 267 H (75-99) mg/dL Calcium (8.4-10.2) mg/dL Microbiology - Last 24 Hours (Table) 02/16/22 22:45 Gram Stain - Preliminary Sputum Sputum Culture - Preliminary 02/14/22 18:29 Blood Culture - Preliminary Blood No Growth after 72 hours 02/14/22 18:17 Blood Culture - Preliminary Blood No Growth after 72 hours Assessment and Plan Assessment: Impression: Acute hypoxic respiratory failure secondary to aspiration pneumonia Acute urinary tract infection secondary Enterobacter cloacae and Klebsiella pneumoniae Acute toxic metabolic encephalopathy secondary to sepsis and aspiration pneumonia Hypotension secondary to sepsis, and suspect septic shock since the patient re quired low-dose pressors. Chronic diastolic congestive heart failure History of aortic stenosis, being considered for the aVR. Olivopontocerebellar demyelination Suspect obesity hypoventilation syndrome Chronic urinary incontinence and previous chronic indwelling Humphrey catheter Type 2 diabetes. Suspect obstructive sleep apnea syndrome, on CPAP. Suspect chronic hypercapnic respiratory failure secondary to obstructive sleep apnea and obesity/hypoventilation syndrome History of sarcoidosis. Medical debility, patient is on electric wheelchair. Recommendation: Continue ventilatory support. Ventilator settings were adjusted today. Continue nutritional support. Continue antibiotics in the form of Zosyn and vancomycin for aspiration pneumonia. Adjust antibiotics accordingly. May consider stopping vancomycin in the next 24 hours. Continue nutritional support. Hemodynamic support as needed. Daily weaning trials and sedation interruption or possible weaning. Patient may eventually require a swallow evaluation a even require a PEG tube placement if she fails to swallow evaluation. We will address dated trials of weaning starting today off sedation. Continue Levemir insulin. Continue GI and DVT prophylaxis. Patient is critically ill, critical care time is over 30 minutes Prognosis remains extremely poor and guarded. Time with Patient: Greater than 30
[2022-02-18 11:30] LABS: Glucose,Whole Blood 247 mg/dL (75-99)
[2022-02-18 18:03] LABS: Glucose,Whole Blood 250 mg/dL (75-99)
[2022-02-18] MEDS: INSULIN DETEMIR (LEVEMIR) 100 UNIT/ML SYR SQ SCH (20:57)
[2022-02-18 21:06] LABS: Glucose,Whole Blood 222 mg/dL (75-99)
[2022-02-18 23:42] LABS: Glucose,Whole Blood 236 mg/dL (75-99)
[2022-02-19] MEDS: NOREPINEPHRINE 4 MG in SODIUM CHLORIDE 0.9% 250 ML IV SCH ×2 (00:47→12:51)
[2022-02-19 02:05] LABS: Glucose,Whole Blood 244 mg/dL (75-99)
[2022-02-19 05:30] LABS: HCT 28.8 % (34.0-46.0); HGB 8.4 gm/dL (11.4-16.0); Hypochromasia Marked; MCH 28.7 pg (25.0-35.0); MCHC 29.1 g/dL (31.0-37.0); MCV 98.5 fL (80.0-100.0); Macrocytosis Slight; Mean Platelet Volume 10.3; Platelet Count 190 k/uL (150-450); RBC 2.92 m/uL (3.80-5.40); RDW 15.2 % (11.5-15.5)
--- NOTE | 2022-02-19 05:34 | P.PN ---
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 Lifelong nonsmoker. the patient also has had previous history of recurrent UTIs, and she has a permanent Humphrey catheter in place at this point in time. she has had several hospitalizations in the past. I recently saw her in the office and she was quite stable. The patient came into the hospital becausse of altered mentation and some increased shortness of breath. the patient was seen in the ED and she was given a CAT scan of the brain that showed no acute abnormalities. her chest x-ray showed some myocardial megaly and small amount of fluid in the minor fissure and small or effusions. Otherwise other acute abnormalities have been noted. the patient's labs showed a white cell count of 7 with a hemoglobin of 10 and a platelet count of 231. Blood gases showed a pH of 7.42 with a pCO2 of 64 and pO2 113 and this was done and FiO2 of 35% I believe this was done while on the BiPAP. serum bicarb is 41 with a sodium level of 142 and a pot assium level of 3.9. Glucose is 105. troponins of 0.04 and a calcium level is at 8.3. urinalysis has been abnorrmal with increased white cell count and the patient has a permanent Humphrey catheter in place due to chronic urinary retention. The is been doing bladder flushes on this patient which is reduced the frequency of UTIs. Marilee most recent UTI was related to Klebsiella pneumoniae on 12/25/2021. Prior to that the patient had other gram-negative infections including infections with Enterobacter. For now, the patient is on IV fluids. She is on a BiPAP at a pressure of 12/6 cm of water with an FiO2 of 35%. In terms of antibiotics, the patient was given IV Rocephin. On today's evaluation of 02/16/2022, the patient is feeling better. She has no new complaints. She spent the night on BiPAP and currently she is on oxygen at 4 L. No chest pain. No nausea or vomiting. She has gram-negative UTI for which is on IV Rocephin. Seems to more alert and awake compared to yesterday and less lethargic. 02/17/2022, the patient is in the intensive care unit, intubated on a mechanical ventilator. Events from yesterday were noted. The patient was essentially stable. She was being fed in the evening and she sustained a massive aspiration. Progressively she became worse and she became hypoxic and hypercapnic and altered and she was very much tachypnea respiratory rate was in the 40s. She was given a trial of BiPAP which she feels and subsequently admitted recommendations to intubate patient and bring her to the intensive care unit. She became also septic and hypotensive during the process. For now, the patient is intubated on a mechanical ventilator. She is currently in the intensive care unit on propofol running at 50 mcg/kg per minute. She is also on assist control mode of mechanical ventilation at the rate of 24 with a tidal volume of 400 and FiO2 of 80% with a PEEP of 15. Blood gases from this morning shows a pH of 7.49 with a pCO2 of 45 and pO2 of 103. This was not an FiO2 of 100% and currently her FiO2 is down to 80%. Meanwhile I reviewed the series of chest x-ray that was done pre-and post intubation. The most recent chest x-ray shows multilobar pneumonia worsened the left perihilar left upper and left lower lobe. ET tube is around 3 cm above the earnestine and it's adequately positioned. The patient does not have any significant air leaks. Since the patient became hypotensive, she was given IV fluids and she received a total of 2 L normal saline bolus and currently her IV fluids running at the rate of 50 mL an hour. Pressors have also been added and the patient is currently on norepinephrine at 0.04 mcg/kg per minute. Her white cell count is at 15 with a hemoglobin of 11.3. BUN is at 13 with a creatinine of 1.1 and sodium is at 135. The patient was also given IV Zosyn covering for aspiration pneumonia. Note that her origin hospitalization was for a gram-negative UTI secondary to Enterobacter and Klebsiella and both of these microorganisms are sensitive to Zosyn. As such, the patient has been On single agent Zosyn. The patient is on Lovenox for DVT prophylaxis. The patient is also on NovoLog sliding scale coverage. Blood sugars are in the 200s range at this point in time. Patient was reevaluated on 02/17/22, patient remains in the ICU, intubated and mechanically ventilated. She is on assist control rate of 16 per volume 375 FiO2 40% PEEP of 15. However after evaluating the patient, I changed her ventilator settings to FiO2 of 45%, PEEP down to 12, respiration down to 12. And tidal volume was increased to 400. Patient had an ABG earlier today showed a pO2 of 114 pCO2 58 pH of 7.40 and looking at the bicarb on her initial presentation, it was relatively high, I believe the patient may have some unde rlying hypercapnia, and her pCO2 is likely in the high 50s normally. Patient is on propofol at 50 mcg/kg/m, she went off norepinephrine earlier this morning, she has IV fluid at 50 mL per hour in the form of 0.9 normal saline. She will be started on tube feeding today. Patient remains on Zosyn and vancomycin, she continues to have bilateral infiltrates consistent with aspiration pneumonia. WBC count today is 13.3 hemoglobin is 9.2. Basic metabolic profile is normal bicarb is 34.. Profile is normal. Blood sugar is 247. Urine cultures are positive for Enterobacter cloacae and Klebsiella pneumoniae and these cultures are from 02/14/22. 02/18/2022 Patient is seen in follow-up this morning continues to be on mechanical vent with an FiO2 of 45% and PEEP is 12. Patient continues on sedation of propofol and also continues with IV Zosyn and vancomycin for aspiration pneumonia. Chest xray shows bilateral patchy densities and left pleural effusion. Patient is off pressor support and some adjustments to the vent being made. Started enteral nutrition and blood sugars remain mildly elevated. Recommend to continue with gentle IV fluids and accuchecks and sliding scale achs. long acting as well. Will adjust accordingly. WBC trending down and patient is afebrile. Review of systems: Unable to obtain as patient is currently intubated Active Medications Acetaminophen (Acetaminophen Tab 325 Mg Tab) 650 mg PO Q4HR PRN PRN Reason: Fever and/or Mild Pain Last Admin: 02/17/22 14:56 Dose: 650 mg Acetaminophen (Acetaminophen Suppository 650 Mg Supp) 650 mg RECTAL Q4HR PRN PRN Reason: Fever and/ or Pain Last Admin: 02/17/22 04:18 Dose: 650 mg Albuterol Sulfate (Albuterol Nebulized 2.5 Mg/3 Ml) 2.5 mg INHALATION RT-QID [facility] Last Admin: 02/18/22 11:06 Dose: 2.5 mg Aspirin (Aspirin 81 Mg) 81 mg PO DAILY [facility] Last Admin: 02/18/22 08:16 Dose: 81 mg Atorvastatin Calcium (Atorvastatin 20 Mg Tab) 20 mg PO DAILY [facility] Last Admin: 02/18/22 08:16 Dose: 20 mg Budesonide (Budesonide 0.5 Mg/2 Ml Nebu) 0.5 mg INHALATION RT-BID [facility] Last Admin: 02/18/22 07:09 Dose: 0.5 mg Chlorhexidine Gluconate (Chlorhexidine Gluconate 15 Ml Cup) 15 ml MUCOUS MEM BID [facility] Last Admin: 02/18/22 08:15 Dose: 15 ml Enoxaparin Sodium (Enoxaparin 40 Mg/0.4 Ml Syringe) 40 mg SQ DAILY [facility] Last Admin: 02/18/22 08:15 Dose: 40 mg Furosemide (Furosemide 10 Mg/Ml 4 Ml Vial) 40 mg IV DAILY [facility] Last Admin: 02/18/22 10:22 Dose: 40 mg Piperacillin Sod/Tazobactam (Sod 3.375 gm/ Sodium Chloride) 100 mls @ 25 mls/hr IVPB Q8HR [facility]; Protocol Last Admin: 02/18/22 08:15 Dose: 25 mls/hr Propofol 1,000 mg/ IV Solution 100 mls @ 3.27 mls/hr IV .Q24H [facility]; Protocol Last Titration: 02/18/22 11:57 Dose: 35 mcg/kg/min, 22.89 mls/hr Norepinephrine Bitartrate 4 mg (/ Sodium Chloride) 254 mls @ 20.765 mls/hr IV .[id number] [facility]; Protocol Last Admin: 02/18/22 14:52 Dose: Not Given Sodium Chloride (Saline 0.9%) 1,000 mls @ 10 mls/hr IV .Q24H [facility] Last Admin: 02/18/22 01:00 Dose: 50 mls/hr Vancomycin HCl 2,000 mg/ (Sodium Chloride) 500 mls @ 167 mls/hr IVPB Q24H [facility] Last Admin: 06/13/22 10:22 Dose: 167 mls/hr Imipramine HCl (Imipramine 25 Mg Tab) 25 mg PO BID [facility] Last Admin: 02/18/22 08:17 Dose: 25 mg Insulin Aspart (Insulin Aspart (Novolog) 100 Unit/Ml Vial) 0 unit SQ Q6H [facility]; Protocol Last Admin: 02/18/22 12:01 Dose: 5 unit Insulin Detemir (Insulin Detemir (Levemir) 100 Unit/Ml Syr) 10 unit SQ HS [facility] Last Admin: 02/17/22 20:19 Dose: 10 unit Miscellaneous Information (Potassium Replacement Protocol 1 Each Misc) 1 each MISCELLANE DAILY PRN; Protocol PRN Reason: Per Protocol Naloxone HCl (Naloxone 0.4 Mg/Ml 1 Ml Vial) 0.2 mg IV Q2M PRN PRN Reason: Opioid Reversal Physical exam: GENERAL EXAM: a 66-year-old female, morbidly obese, intubated and sedated on propofol with a vent setting of 40% FI02 and peep is 12 HEENT: Normocephalic. PERRLA, Endotracheal tube and orogastric tube are intact. nares are patent NECK: No masses, no JVD. Short obese neck LUNGS: Symmetrical chest expansion, diminished breath sounds bilaterally with some crackles at the bases. No rhonchi no wheezes. CARDIO: S1 and S2 muffled with no audible murmur, regular rhythm. ABDOMEN: soft, obese, non-distended, normal bowel sounds, no guarding or rigidity. SKIN: No rashes Neurological: Cannot assess completely, patient is sedated, on propofol. EXTREMITIES: No clubbing edema or cyanosis. generalized edema noted throughout Assessment: Acute hypoxic respiratory failure secondary to aspiration pneumonia Acute urinary tract infection secondary Enterobacter cloacae and Klebsiella pneumoniae Acute toxic metabolic encephalopathy secondary to sepsis and aspiration pneumonia Hypotension secondary to sepsis, with possible septic shock as patient was initially on pressor support Chronic diastolic congestive heart failure History of Olivopontocerebellar demyelination Possible obesity hypoventilation syndrome diabetes mellitus, type 2 uncontrolled with hyperglycemia. obstructive sleep apnea syndrome, on CPAP. Possible chronic hypercapnic respiratory failure secondary to obstructive sleep apnea and obesity/hypoventilation syndrome History of sarcoidosis. GI prophylaxis DVT prophylaxis Full code Plan: Recommend to continue with close monitoring in the ICU with sedation holidays and weaning parameters being assessed. Recommend to continue with accuchecks achs and will adjust insulins for the toby vated blood sugars Continue antibiotics in the form of Zosyn and vancomycin for aspiration pneumonia. Possible general surgery consult for a PEG tube placement if she fails to swallow evaluation. Recommend follow up chest xray and labs in the am Overall prognosis is poor and extremely guarded at this time. The impression and plan of care has been dictated by Ayleen Cehng Nurse Pr actitioner as directed. MD Laisha I have performed a history and examination and MDM of this patient, discussed the same with the dictator, and agree with the dictator's assessment and plan as written ,documented as a scribe. Based on total visit time, I have performed more than 50% of the visit. Objective - Vital Signs Vital signs: Vital Signs Temp 98.6 F 02/18/22 04:00 Pulse 91 02/18/22 07:43 Resp 16 02/18/22 07:43 BP 155/81 02/18/22 07:00 Pulse Ox 97 02/18/22 07:00 FiO2 45 02/18/22 09:44 Intake & Output 02/17/22 02/18/22 02/18/22 18:59 06:59 18:59 Intake Total 4393.050 7874.378 317.068 Output Total 385 720 185 Balance 1221.708 693.378 132.068 Weight 121.9 kg Intake: IV 917 775 200 Piperacillin-Tazobactam 3 200 175 50 .375 gm In Sodium Chloride 0.9% 100 ml @ 25 mls/hr IVPB Q8HR [facility] Rx# :[id number] Sodium Chloride 0.9% 1, 550 600 150 000 ml @ 50 mls/hr IV . Q20H [facility] Rx#:[id number] Vancomycin 2,250 mg In 167 Sodium Chloride 0.9% 500 ml 500 ml @ 167 mls/hr IVPB ONCE ONE Rx#: [id number] Intake, IV Titration 689.708 638.378 117.068 Amount Norepinephrine 4 mg In 317.286 226.903 36.408 Sodium Chloride 0.9% 250 ml @ 0.05 MCG/KG/MIN 20. 765 mls/hr IV .[id number] [facility] Rx#:[id number] Sodium Chloride 0.9% 1, 50 000 ml @ 50 mls/hr IV . Q20H [facility] Rx#:[id number] propofoL 1,000 mg In 322.422 411.475 80.66 Empty Bag 1 bag @ 5 MCG/ KG/MIN 3.27 mls/hr IV . Q24H [facility] Rx#:[id number] Output: Urine 385 720 185 Other: Voiding Method Indwelling Catheter Indwelling Catheter ABP, PAP, CO, CI - Last Documented Arterial Blood Pressure 111/55 - Labs CBC & Chem 7: 02/18/22 04:17 02/18/22 04:17 Labs: Abnormal Lab Results - Last 24 Hours (Table) 02/17/22 02/17/22 02/17/22 Range/Units 12:53 15:45 17:29 WBC (3.8-10.6) k/uL RBC (3.80-5.40) m/uL Hgb (11.4-16.0) gm/dL Hct (34.0-46.0) % MCHC (31.0-37.0) g/dL RDW (11.5-15.5) % ABG pCO2 54 H (35-45) mmHg ABG pO2 117 H (83-108) mmHg ABG HCO3 36 H (21-25) mmol/L ABG Total CO2 38 H (19-24) mmol/L ABG O2 Saturation 98.2 H (94-97) % Carbon Dioxide (22-30) mmol/L Glucose (74-99) mg/dL POC Glucose (mg/dL) 356 H 323 H (75-99) mg/dL Calcium (8.4-10.2) mg/dL 02/18/22 02/18/22 02/18/22 Range/Units 00:27 04:17 04:17 WBC 13.3 H (3.8-10.6) k/uL RBC 3.15 L (3.80-5.40) m/uL Hgb 9.2 L D (11.4-16.0) gm/dL Hct 30.4 L (34.0-46.0) % MCHC 30.1 L (31.0-37.0) g/dL RDW 15.9 H (11.5-15.5) % ABG pCO2 (35-45) mmHg ABG pO2 (83-108) mmHg ABG HCO3 (21-25) mmol/L ABG Total CO2 (19-24) mmol/L ABG O2 Saturation (94-97) % Carbon Dioxide 34 H (22-30) mmol/L Glucose 247 H (74-99) mg/dL POC Glucose (mg/dL) 258 H (75-99) mg/dL Calcium 8.0 L (8.4-10.2) mg/dL 02/18/22 02/18/22 Range/Units 04: 05:42 WBC (3.8-10.6) k/uL RBC (3.80-5.40) m/uL Hgb (11.4-16.0) gm/dL Hct (34.0-46.0) % MCHC (31.0-37.0) g/dL RDW (11.5-15.5) % ABG pCO2 58 H (35-45) mmHg ABG pO2 114 H (83-108) mmHg ABG HCO3 36 H (21-25) mmol/L ABG Total CO2 37 H (19-24) mmol/L ABG O2 Saturation 98.7 H (94-97) % Carbon Dioxide (22-30) mmol/L Glucose (74-99) mg/dL POC Glucose (mg/dL) 267 H (75-99) mg/dL Calcium (8.4-10.2) mg/dL Microbiology - Last 24 Hours (Table) 02/16/22 22:45 Gram Stain - Preliminary Sputum Sputum Culture - Preliminary 02/14/22 18:29 Blood Culture - Preliminary Blood No Growth after 72 hours 02/14/22 18:17 Blood Culture - Preliminary Blood No Growth after 72 hours
[2022-02-19 05:35] LABS: ABG Base Excess 13.9 mmol/L; ABG HCO3 39 mmol/L (21-25); ABG Oxygen Saturation 97.7 % (94-97); ABG PCO2 61 mmHg (35-45); ABG PH 7.41 (7.35-7.45); ABG PO2 91 mmHg (83-108); ABG TCO2 40 mmol/L (19-24); Allen Test Performed? Yes
[2022-02-19 06:13] LABS: Glucose,Whole Blood 286 mg/dL (75-99)
[2022-02-19] MEDS: INSULIN ASPART (NovoLOG) 100 UNIT/ML VIAL SQ SCH ×4 (06:28→23:41)
[2022-02-19] MEDS: BUDESONIDE 0.5 MG/2 ML NEBU INHALATION SCH ×2 (07:16→20:03)
[2022-02-19] MEDS: ALBUTEROL NEBULIZED 2.5 MG/3 ML INHALATION SCH ×4 (07:16→20:03)
--- NOTE | 2022-02-19 08:07 | XR ---
EXAMINATION TYPE: XR chest 1V portable DATE OF EXAM: 02/19/2022 COMPARISON: X-ray dated 02/18/2022 HISTORY: Tube placement TECHNIQUE: Single frontal view of the chest is obtained. FINDINGS: The tip of endotracheal tube is about 3.8 cm proximal to the earnestine. NG tube is seen with tip is infe rior to the diaphragm. Persistent bilateral pulmonary patchy opacities, slightly improved in the right upper lung zone. Unchanged cardiomediastinal silhouette and bony thoracic cage. IMPRESSION: As above.
[2022-02-19] MEDS: ASPIRIN 81 MG PO SCH (09:01)
[2022-02-19] MEDS: ATORVASTATIN 20 MG TAB PO SCH (09:01)
[2022-02-19] MEDS: PIPERACILLIN-TAZOBACTAM 3.375 GM in SODIUM CHLORIDE 0.9% 100 ML IVPB SCH ×3 (09:01→23:41)
[2022-02-19] MEDS: CHLORHEXIDINE GLUCONATE 15 ML CUP MUCOUS MEM SCH ×2 (09:01→20:00)
[2022-02-19] MEDS: IMIPRAMINE 25 MG TAB PO SCH ×2 (09:01→20:00)
[2022-02-19] MEDS: ENOXAPARIN 40 MG/0.4 ML SYRINGE SQ SCH (09:03)
[2022-02-19] MEDS: FUROSEMIDE 10 MG/ML 4 ML VIAL IV SCH (09:03)
[2022-02-19] MEDS: VANCOMYCIN 2,000 MG in SODIUM CHLORIDE 0.9% 500 ML 500 ML IVPB SCH (09:04)
[2022-02-19 11:03] LABS: Glucose,Whole Blood 280 mg/dL (75-99)
[2022-02-19 11:59] LABS: ALT 13 U/L (4-34); AST 18 U/L (14-36); African American GFR (CKD) >90 (>60 ml/min/1.73 sqM); Albumin 2.9 g/dL (3.5-5.0); Alkaline Phosphatase 65 U/L (38-126); Anion Gap 4 mmol/L; Blood Urea Nitrogen 15 mg/dL (7-17); Calcium 8.3 mg/dL (8.4-10.2); Carbon Dioxide 37 mmol/L (22-30); Chloride 100 mmol/L (98-107); Glucose 273 mg/dL (74-99); Non-African American GFR(CKD) 80 (>60 ml/min/1.73 sqM); Potassium 3.2 mmol/L (3.5-5.1); Sodium 141 mmol/L (137-145); Total Bilirubin 0.2 mg/dL (0.2-1.3); Total Protein 5.8 g/dL (6.3-8.2)
--- NOTE | 2022-02-19 12:04 | P.PN ---
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 Lifelong nonsmoker. the patient also has had previous history of recurrent UTIs, and she has a permanent Humphrey catheter in place at this point in time. she has had several hospitalizations in the past. I recently saw her in the office and she was quite stable. The patient came into the hospital becausse of altered mentation and some increased shortness of breath. the patient was seen in the ED and she was given a CAT scan of the brain that showed no acute abnormalities. her chest x-ray showed some myocardial megaly and small amount of fluid in the minor fissure and small or effusions. Otherwise other acute abnormalities have been noted. the patient's labs showed a white cell count of 7 with a hemoglobin of 10 and a platelet count of 231. Blood gases showed a pH of 7.42 with a pCO2 of 64 and pO2 113 and this was done and FiO2 of 35% I believe this was done while on the BiPAP. serum bicarb is 41 with a sodium level of 142 and a potassium level of 3.9. Glucose is 105. troponins of 0.04 and a calcium level is at 8.3. urinalysis has been abnorrmal with increased white cell count and the patient has a permanent Humphrey catheter in place due to chronic urinary retention. The is been doing bladder flushes on this patient which is reduced the frequency of UTIs. Marilee most recent UTI was related to Klebsiella pneumoniae on 12/25/2021. Prior to that the patient had other gram-negative infections including infections with Enterobacter. For now, the patient is on IV fluids. She is on a BiPAP at a pressure of 12/6 cm of water with an FiO2 of 35%. In terms of antibiotics, the patient was given IV Rocephin. On today's evaluation of 02/16/2022, the patient is feeling better. She has no new complaints. She spent the night on BiPAP and currently she is on oxygen at 4 L. No chest pain. No nausea or vomiting. She has gram-negative UTI for which is on IV Rocephin. Seems to more alert and awake compared to yesterday and less lethargic. 02/17/2022, the patient is in the intensive care unit, intubated on a mechanical ventilator. Events from yesterday were noted. The patient was essentially stable. She was being fed in the evening and she sustained a massive a spiration. Progressively she became worse and she became hypoxic and hypercapnic and altered and she was very much tachypnea respiratory rate was in the 40s. She was given a trial of BiPAP which she feels and subsequently admitted recommendations to intubate patient and bring her to the intensive care unit. She became also septic and hypotensive during the process. For now, the patient is intubated on a mechanical ventilator. She is currently in the intensive care unit on propofol running at 50 mcg/kg per minute. She is also on assist control mode of mechanical ventilation at the rate of 24 with a tidal volume of 400 and FiO2 of 80% with a PEEP of 15. Blood gases from this morning shows a pH of 7.49 with a pCO2 of 45 and pO2 of 103. This was not an FiO2 of 100% and currently her FiO2 is down to 80%. Meanwhile I reviewed the series of chest x-ray that was done pre-and post intubation. The most recent chest x-ray shows multilobar pneumonia worsened the left perihilar left upper and left lower lobe. ET tube is around 3 cm above the earnestine and it's adequately positioned. The patient does not have any significant air leaks. Since the patient became hypotensive, she was given IV fluids and she received a total of 2 L normal saline bolus and currently her IV fluids running at the rate of 50 mL an hour. Pressors have also been added and the patient is currently on norepinephrine at 0.04 mcg/kg per minute. Her white cell count is at 15 with a hemoglobin of 11.3. BUN is at 13 with a creatinine of 1.1 and sodium is at 135. The patient was also given IV Zosyn covering for aspiration pneumonia. Note that her origin hospitalization was for a gram-negative UTI secondary to Enterobacter and Klebsiella and both of these microorganisms are sensitive to Zosyn. As such, the patient has been On single agent Zosyn. The patient is on Lovenox for DVT prophylaxis. The patient is also on NovoLog sliding scale coverage. Blood sugars are in the 200s range at this point in time. Patient was reevaluated on 02/18/22, patient remains in the ICU, intubated and mechanically ventilated. She is on assist control rate of 16 per volume 375 FiO2 40% PEEP of 15. However after evaluating the patient, I changed her ventilator settings to FiO2 of 45%, PEEP down to 12, respiration down to 12. And tidal volume was increased to 400. Patient had an ABG earlier today showed a pO2 of 114 pCO2 58 pH of 7.40 and looking at the bicarb on her initial presentation, it was relatively high, I believe the patient may have some underlying hypercapnia, and her pCO2 is likely in the high 50s normally. Patient is on propofol at 50 mcg/kg/m, she went off norepinephrine earlier this morning, she has IV fluid at 50 mL per hour in the form of 0.9 normal saline. She will be started on tube feeding today. Patient remains on Zosyn and vancomycin, she continues to have bilateral infiltrates consistent with aspiration pneumonia. WBC count today is 13.3 hemoglobin is 9.2. Basic metabol ic profile is normal bicarb is 34.. Profile is normal. Blood sugar is 247. Urine cultures are positive for Enterobacter cloacae and Klebsiella pneumoniae and these cultures are from 02/14/22. Reevaluated today on 02/19/22, patient remains in the ICU, remains intubated and mechanically ventilated. She is on assist control of 12 tidal volume 400 FiO2 40% and PEEP of 5 ABG showed a pO2 of 91 pCO2 61 pH of 7.41. Patient is not requiring any pressors. Patient failed the weaning yesterday, she went off sedation, however she became tachypneic, and did not follow any commands or instructions. Had to be placed back on sedation and continue mechanical ventilation. Today I plan to do the same and hold sedation and assessment of status at least today. She is still on propofol at 40 mcg/kg/m IV fluid at KVO vital HPI at 30 mL per hour. Chest x-ray continues show bilateral infiltrates. Patient will remain on antibiotics however I will discontinue vancomycin. No ventilator changes were made today. Patient remains on Zosyn but off vancomycin today. Remains on Lasix at 40 mg IV push daily. Remains on Joshua dilators and on GI and DVT prophylaxis. Objective - Vital Signs Vital signs: Vital Signs Temp 98.8 F 02/19/22 04:00 Pulse 82 02/19/22 10:52 Resp 12 02/19/22 10:52 BP 127/55 02/19/22 04:00 Pulse Ox 96 02/19/22 07:00 FiO2 40 02/19/22 10:31 Intake & Output 02/18/22 02/19/22 02/19/22 18:59 06:59 18:59 Intake Total 1192.588 764.160 226.556 Output Total 3125 530 40 Balance -1932.412 234.160 186.556 Weight 121.7 kg 115.8 kg Intake: IV 866 150 13 Piperacillin-Tazobactam 3 125 .375 gm In Sodium Chloride 0.9% 100 ml @ 25 mls/hr IVPB Q8HR [facility] Rx# :[id number] Sodium Chloride 0.9% 1, 240 120 10 000 ml @ 10 mls/hr IV . Q24H [facility] Rx#:[id number] Vancomycin 2,250 mg In 501 Sodium Chloride 0.9% 500 ml 500 ml @ 167 mls/hr IVPB ONCE ONE Rx#: [id number] pressure bag 30 3 Intake, IV Titration 256.588 244.160 183.556 Amount Norepinephrine 4 mg In 36.408 Sodium Chloride 0.9% 250 ml @ 0.05 MCG/KG/MIN 20. 765 mls/hr IV .[id number] [facility] Rx#:[id number] propofoL 1,000 mg In 220.180 244.160 183.556 Empty Bag 1 bag @ 5 MCG/ KG/MIN 3.27 mls/hr IV . Q24H [facility] Rx#:[id number] Tube Feeding 70 310 30 Other 60 Output: Urine 3125 530 40 Other: Voiding Method Indwelling Catheter Indwelling Catheter ABP, PAP, CO, CI - Last Documented Arterial Blood Pressure 120/54 - Exam GENERAL EXAM: Revealed a 66-year-old female, intubated, in no distress. Sedate d. HEAD: Normocephalic. Endotracheal tube and orogastric tube are intact. EYES: Unremarkable. NOSE: Unremarkable, intact orogastric tube.. THROAT: No erythema or exudates. NECK: No neck masses no JVD no stridor. Patient has short obese neck. CHEST: Symmetrical chest expansion noted chest wall tenderness. LUNGS: Symmetrical chest expansion, rhonchi noted bilaterally CVS: Normal S1 and S2, no S3 gallop, no murmur. ABDOMEN: Obese soft nontender no megaly no rebound no guarding. Positive bowel sounds. SKIN: No rashes CENTRAL NERVOUS SYSTEM: Sedated, could not assess EXTREMITIES: No clubbing edema or cyanosis. - Labs CBC & Chem 7: 02/19/22 05:13 02/18/22 04:17 Labs: Abnormal Lab Results - Last 24 Hours (Table) 02/18/22 02/18/22 02/18/22 Range/Units 18:02 21:04 23:41 RBC (3.80-5.40) m/uL Hgb (11.4-16.0) gm/dL Hct (34.0-46.0) % MCHC (31.0-37.0) g/dL ABG pCO2 (35-45) mmHg ABG HCO3 (21-25) mmol/L ABG Total CO2 (19-24) mmol/L ABG O2 Saturation (94-97) % POC Glucose (mg/dL) 250 H 222 H 236 H (75-99) mg/dL 02/19/22 02/19/22 02/19/22 Range/Units 02:04 05:13 05:32 RBC 2.92 L (3.80-5.40) m/uL Hgb 8.4 L (11.4-16.0) gm/dL Hct 28.8 L (34.0-46.0) % MCHC 29.1 L (31.0-37.0) g/dL ABG pCO2 61 H (35-45) mmHg ABG HCO3 39 H (21-25) mmol/L ABG Total CO2 40 H (19-24) mmol/L ABG O2 Saturation 97.7 H (94-97) % POC Glucose (mg/dL) 244 H (75-99) mg/dL 02/19/22 02/19/22 Range/Units 06:11 11:01 RBC (3.80-5.40) m/uL Hgb (11.4-16.0) gm/dL Hct (34.0-46.0) % MCHC (31.0-37.0) g/dL ABG pCO2 (35-45) mmHg ABG HCO3 (21-25) mmol/L ABG Total CO2 (19-24) mmol/L ABG O2 Saturation (94-97) % POC Glucose (mg/dL) 286 H 280 H (75-99) mg/dL Microbiology - Last 24 Hours (Table) 02/16/22 22:45 Gram Stain - Final Sputum Sputum Culture - Final Chaya albicans 02/14/22 18:17 Blood Culture - Preliminary Blood No Growth after 96 hours 02/14/22 18:29 Blood Culture - Preliminary Blood No Growth after 96 hours Assessment and Plan Assessment: Impression: Acute hypoxic respiratory failure secondary to aspiration pneumonia Acute urinary tract infection secondary Enterobacter cloacae and Klebsiella pneumoniae Acute toxic metabolic encephalopathy secondary to sepsis and aspiration pneumonia Hypotension secondary to sepsis, and suspect septic shock since the patient required low-dose pressors. Chronic diastolic congestive heart failure History of aortic stenosis, being considered for the aVR. Olivopontocerebellar demyelination Suspect obesity hypoventilation syndrome Chronic urinary incontinence and previous chronic indwelling Humphrey catheter Type 2 diabetes. Suspect obstructive sleep apnea syndrome, on CPAP. Suspect chronic hypercapnic respiratory failure secondary to obstructive sleep apnea and obesity/hypoventilation syndrome History of sarcoidosis. Medical debility, patient is on electric wheelchair. Recommendation: Continue ventilatory support. We'll try again holding sedation and assessment of status, patient failed that yesterday. Continue nutritional support. Continue antibiotics however will discontinue vancomycin and continue Zosyn only Continue nutritional support./Enteral feeding. Hemodynamic support as needed. Presently not requiring any pressors. Daily weaning trials and sedation interruption or possible weaning. Continue Levemir insulin. Continue GI and DVT prophylaxis. Patient is critically ill, critical care time is over 30 minutes Prognosis remains extremely poor and guarded. Time with Patient: Greater than 30
[2022-02-19] MEDS: POTASSIUM BICARBONATE/CIT AC 20 MEQ TABLET.EFF NG-TUBE SCH ×4 (12:53→21:55)
[2022-02-19 17:28] LABS: Glucose,Whole Blood 292 mg/dL (75-99)
--- NOTE | 2022-02-19 18:12 | CA ---
Transthoracic Echo Report Name: Dede Freeman Age: 66 Gender: F : 1955 Exam Date: 02/18/2022 07:57 Exam Location: [place] [facility] Ht (in): 62 Wt (lb): 278 Ordering Physician: Delfina Blanco Attending/Referring Phys: Francis ROSS Supervisor [employer] Mary Vogel, EMMANUEL Procedure CPT: Indications: chf Cardiac Hx: Morbid Obesity Technical Quality: Very technically difficult study Contrast 1: Lumason Total Dose (mL): 3 Contrast 2: Lumason Total Dose (mL): MEASUREMENTS (Male / Female) Normal Values 2D ECHO LV Diastolic Diameter PLAX 4.2 cm 4.2 - 5.9 / 3.9 - 5.3 cm LV Systolic Diameter PLAX 4.4 cm IVS Diastolic Thickness 1.3 cm 0.6 - 1.0 / 0.6 - 0.9 cm LVPW Diastolic Thickness 1.7 cm 0.6 - 1.0 / 0.6 - 0.9 cm LV Relative Wall Thickness 0.7 RV Internal Dim ED PLAX 3.4 cm DOPPLER AV Peak Velocity 501.9 cm/s AV Peak Gradient 100.7 mmHg AV Mean Velocity 386.1 cm/s AV Mean Gradient 67.7 mmHg AV Velocity Time Integral 102.8 cm LVOT Peak Velocity 118.3 cm/s LVOT Peak Gradient 5.6 mmHg MV Area PHT 3.1 cm??? Mitral E Point Velocity 85.1 cm/s Mitral A Point Velocity 97.7 cm/s Mitral E to A Ratio 0.9 MV Deceleration Time 243.8 ms FINDINGS Left Ventricle Moderately increased left ventricular wall thickness. Left ventricular ejection fraction is estimated at 50-50 %. Right Ventricle Normal right ventricular size and function. Right Atrium Right atrium not well visualized. Left Atrium Left atrial size at the upper limits of normal. Mitral Valve Mitral valve not well visualized. Aortic Valve Aortic valve not well visualized. Severe aortic stenosis with a peak gradient 100.7 mmHg, mean gradient 67.7 mmHg, and estimated aortic valve area of cm???. Tricuspid Valve Tricuspid valve not well visualized. Pulmonic Valve Pulmonic valve not well visualized. Pericardium Echo free space anterior to the right ventricle likely represents a fat pad. Aorta Aortic root and proximal ascending aorta not well visualized. CONCLUSIONS This is a technically very difficult study. Echo contrast was used. Grassley LV systolic function is very well-preserved within normal ejection fraction. Rest of the cardiac structures are not well seen. Particularly I aortic valve is not well-seen but on interrogation with Doppler that appears to be severe aortic stenosis with a mean gradient of more than 60 mmHg. I would recommend a transesophageal echo to get a better assessment of heart function and also status and severity of aortic valve disease Previewed by: Dr. Jessica Acosta MD (Electronically Signed) Final Date: 19 February 2022 18:12
--- NOTE | 2022-02-19 19:49 | P.PN ---
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 Lifelong nonsmoker. the patient also has had previous history of recurrent UTIs, and she has a permanent Humphrey catheter in place at this point in time. she has had several hospitalizations in the past. I recently saw her in the office and she was quite stable. The patient came into the hospital becausse of altered mentation and some increased shortness of breath. the patient was seen in the ED and she was given a CAT scan of the brain that showed no acute abnormalities. her chest x-ray showed some myocardial megaly and small amount of fluid in the minor fissure and small or effusions. Otherwise other acute abnormalities have been noted. the patient's labs showed a white cell count of 7 with a hemoglobin of 10 and a platelet count of 231. Blood gases showed a pH of 7.42 with a pCO2 of 64 and pO2 113 and this was done and FiO2 of 35% I believe this was done while on the BiPAP. serum bicarb is 41 with a sodium level of 142 and a pot assium level of 3.9. Glucose is 105. troponins of 0.04 and a calcium level is at 8.3. urinalysis has been abnorrmal with increased white cell count and the patient has a permanent Humphrey catheter in place due to chronic urinary retention. The is been doing bladder flushes on this patient which is reduced the frequency of UTIs. Marilee most recent UTI was related to Klebsiella pneumoniae on 12/25/2021. Prior to that the patient had other gram-negative infections including infections with Enterobacter. For now, the patient is on IV fluids. She is on a BiPAP at a pressure of 12/6 cm of water with an FiO2 of 35%. In terms of antibiotics, the patient was given IV Rocephin. On today's evaluation of 02/16/2022, the patient is feeling better. She has no new complaints. She spent the night on BiPAP and currently she is on oxygen at 4 L. No chest pain. No nausea or vomiting. She has gram-negative UTI for which is on IV Rocephin. Seems to more alert and awake compared to yesterday and less lethargic. 02/17/2022, the patient is in the intensive care unit, intubated on a mechanical ventilator. Events from yesterday were noted. The patient was essentially stable. She was being fed in the evening and she sustained a massive aspiration. Progressively she became worse and she became hypoxic and hypercapnic and altered and she was very much tachypnea respiratory rate was in the 40s. She was given a trial of BiPAP which she feels and subsequently admitted recommendations to intubate patient and bring her to the intensive care unit. She became also septic and hypotensive during the process. For now, the patient is intubated on a mechanical ventilator. She is currently in the intensive care unit on propofol running at 50 mcg/kg per minute. She is also on assist control mode of mechanical ventilation at the rate of 24 with a tidal volume of 400 and FiO2 of 80% with a PEEP of 15. Blood gases from this morning shows a pH of 7.49 with a pCO2 of 45 and pO2 of 103. This was not an FiO2 of 100% and currently her FiO2 is down to 80%. Meanwhile I reviewed the series of chest x-ray that was done pre-and post intubation. The most recent chest x-ray shows multilobar pneumonia worsened the left perihilar left upper and left lower lobe. ET tube is around 3 cm above the earnestine and it's adequately positioned. The patient does not have any significant air leaks. Since the patient became hypotensive, she was given IV fluids and she received a total of 2 L normal saline bolus and currently her IV fluids running at the rate of 50 mL an hour. Pressors have also been added and the patient is currently on norepinephrine at 0.04 mcg/kg per minute. Her white cell count is at 15 with a hemoglobin of 11.3. BUN is at 13 with a creatinine of 1.1 and sodium is at 135. The patient was also given IV Zosyn covering for aspiration pneumonia. Note that her origin hospitalization was for a gram-negative UTI secondary to Enterobacter and Klebsiella and both of these microorganisms are sensitive to Zosyn. As such, the patient has been On single agent Zosyn. The patient is on Lovenox for DVT prophylaxis. The patient is also on NovoLog sliding scale coverage. Blood sugars are in the 200s range at this point in time. Patient was reevaluated on 02/17/22, patient remains in the ICU, intubated and mechanically ventilated. She is on assist control rate of 16 per volume 375 FiO2 40% PEEP of 15. However after evaluating the patient, I changed her ventilator settings to FiO2 of 45%, PEEP down to 12, respiration down to 12. And tidal volume was increased to 400. Patient had an ABG earlier today showed a pO2 of 114 pCO2 58 pH of 7.40 and looking at the bicarb on her initial presentation, it was relatively high, I believe the patient may have some unde rlying hypercapnia, and her pCO2 is likely in the high 50s normally. Patient is on propofol at 50 mcg/kg/m, she went off norepinephrine earlier this morning, she has IV fluid at 50 mL per hour in the form of 0.9 normal saline. She will be started on tube feeding today. Patient remains on Zosyn and vancomycin, she continues to have bilateral infiltrates consistent with aspiration pneumonia. WBC count today is 13.3 hemoglobin is 9.2. Basic metabolic profile is normal bicarb is 34.. Profile is normal. Blood sugar is 247. Urine cultures are positive for Enterobacter cloacae and Klebsiella pneumoniae and these cultures are from 02/14/22. 02/18/2022 Patient is seen in follow-up this morning continues to be on mechanical vent with an FiO2 of 45% and PEEP is 12. Patient continues on sedation of propofol and also continues with IV Zosyn and vancomycin for aspiration pneumonia. Chest xray shows bilateral patchy densities and left pleural effusion. Patient is off pressor support and some adjustments to the vent being made. Started enteral nutrition and blood sugars remain mildly elevated. Recommend to continue with gentle IV fluids and accuchecks and sliding scale achs. long acting as well. Will adjust accordingly. WBC trending down and patient is afebrile. 02/19/2022 Patient is seen this morning continues to be in the ICU on mechanical vent and FiO2 is 40% with a PEEP of 12. Patient continues on sedation and also maintained on 40 mg of IV Lasix daily along with IV Zosyn and will continue. Vancomycin discontinued. Blood sugars mildly elevated and will increase long-acting insulin and continue with sliding scale and Accu-Cheks before meals and at bedtime and as needed. Chest x-ray today shows unchanged cardiomediastinal silhouette with persistent bilateral pulmonary patchy opacification is slightly improved in the right upper lung zone an NG tube is noted. WBC is trending down at 10.0 hemoglobin is stable at 8.4. As mentioned previously blood sugars are elevated and will increase insulins. Patient is currently afebrile. Sputum cultures pending at this time and blood cultures remain negative. Urine culture showing Enterobacter Cloacae along with Klebsiella pneumonia. Review of systems: Unable to obtain as patient is currently intubated Active Medications Acetaminophen (Acetaminophen Tab 325 Mg Tab) 650 mg PO Q4HR PRN PRN Reason: Fever and/or Mild Pain Last Admin: 02/17/22 14:56 Dose: 650 mg Acetaminophen (Acetaminophen Suppository 650 Mg Supp) 650 mg RECTAL Q4HR PRN PRN Reason: Fever and/ or Pain Last Admin: 02/17/22 04:18 Dose: 650 mg Albuterol Sulfate (Albuterol Nebulized 2.5 Mg/3 Ml) 2.5 mg INHALATION RT-QID [facility] Last Admin: 02/19/22 07:16 Dose: 2.5 mg Aspirin (Aspirin 81 Mg) 81 mg PO DAILY [facility] Last Admin: 02/19/22 09:01 Dose: 81 mg Atorvastatin Calcium (Atorvastatin 20 Mg Tab) 20 mg PO DAILY [facility] Last Admin: 02/19/22 09:01 Dose: 20 mg Budesonide (Budesonide 0.5 Mg/2 Ml Nebu) 0.5 mg INHALATION RT-BID [facility] Last Admin: 02/19/22 07:16 Dose: 0.5 mg Chlorhexidine Gluconate (Chlorhexidine Gluconate 15 Ml Cup) 15 ml MUCOUS MEM BID [facility] Last Admin: 02/19/22 09:01 Dose: 15 ml Enoxaparin Sodium (Enoxaparin 40 Mg/0.4 Ml Syringe) 40 mg SQ DAILY [facility] Last Admin: 02/19/22 09:03 Dose: 40 mg Furosemide (Furosemide 10 Mg/Ml 4 Ml Vial) 40 mg IV DAILY [facility] Last Admin: 02/19/22 09:03 Dose: 40 mg Piperacillin Sod/Tazobactam (Sod 3.375 gm/ Sodium Chloride) 100 mls @ 25 mls/hr IVPB Q8HR [facility]; Protocol Last Admin: 02/19/22 09:01 Dose: 25 mls/hr Propofol 1,000 mg/ IV Solution 100 mls @ 3.27 mls/hr IV .Q24H [facility]; Protocol Last Admin: 02/19/22 07:47 Dose: 40 mcg/kg/min, 26.16 mls/hr Norepinephrine Bitartrate 4 mg (/ Sodium Chloride) 254 mls @ 20.765 mls/hr IV .[id number] [facility]; Protocol Last Admin: 02/19/22 00:47 Dose: Not Given Sodium Chloride (Saline 0.9%) 1,000 mls @ 10 mls/hr IV .Q24H [facility] Last Admin: 02/18/22 23:52 Dose: 10 mls/hr Imipramine HCl (Imipramine 25 Mg Tab) 25 mg PO BID [facility] Last Admin: 02/19/22 09:01 Dose: 25 mg Insulin Aspart (Insulin Aspart (Novolog) 100 Unit/Ml Vial) 0 unit SQ Q6H [facility]; Protocol Last Admin: 02/19/22 06:28 Dose: 7 unit Insulin Detemir (Insulin Detemir (Levemir) 100 Unit/Ml Syr) 15 unit SQ HS [facility] Miscellaneous Information (Potassium Replacement Protocol 1 Each Misc) 1 each MISCELLANE DAILY PRN; Protocol PRN Reason: Per Protocol Naloxone HCl (Naloxone 0.4 Mg/Ml 1 Ml Vial) 0.2 mg IV Q2M PRN PRN Reason: Opioid Reversal Physical exam: GENERAL EXAM: a 66-year-old female, morbidly obese, intubated and sedated on propofol with a vent setting of 40% FI02 and peep is 12 HEENT: Normocephalic. PERRLA, Endotracheal tube and orogastric tube are intact. nares are patent NECK: No masses, no JVD. Short obese neck LUNGS: Symmetrical chest expansion, diminished breath sounds bilaterally with some crackles at the bases. No rhonchi no wheezes. CARDIO: S1 and S2 muffled with no audible murmur, regular rhythm. ABDOMEN: soft, obese, non-distended, normal bowel sounds, no guarding or rigidity. SKIN: No rashes Neurological: Cannot assess completely, patient is sedated, on propofol. EXTREMITIES: No clubbing edema or cyanosis. generalized edema noted throughout Assessment: Acute hypoxic respiratory failure secondary to aspiration pneumonia Acute urinary tract infection secondary Enterobacter cloacae and Klebsiella pneumoniae Acute toxic metabolic encephalopathy secondary to sepsis and aspiration pneumonia Hypotension secondary to sepsis, with possible septic shock as patient was initially on pressor support Chronic diastolic congestive heart failure History of Olivopontocerebellar demyelination Possible obesity hypoventilation syndrome diabetes mellitus, type 2 uncontrolled with hyperglycemia. obstructive sleep apnea syndrome, on CPAP. Possible chronic hypercapnic respiratory failure secondary to obstructive sleep apnea and obesity/hypoventilation syndrome History of sarcoidosis. GI prophylaxis DVT prophylaxis Full code Plan: Recommend to continue with close monitoring in the ICU with sedation holidays and weaning parameters being assessed. Patient remains on mechanical vent at 40% FiO2 and PEEP is 12 Recommend to continue with accuchecks achs and have increased long acting insulin for the elevated blood sugars Continue antibiotics in the form of Zosyn and vancomycin has been discontinued Possible general surgery consult for a PEG tube placement if she fails to swallow evaluation although will continue with enteral nutrition for now with dietitian following. Recommend follow up chest xray and labs in the am, Overall prognosis is poor and extremely guarded at this time. The impression and plan of care has been dictated by Ayleen Cheng, Nurse Practitioner as directed. MD Laisha I have performed a history and examination and MDM of this patient, discussed the same with the dictator, and agree with the dictator's assessment and plan as written ,documented as a scribe. Based on total visit time, I have performed more than 50% of the visit. Objective - Vital Signs Vital signs: Vital Signs Temp 98.8 F 02/19/22 04:00 Pulse 82 02/19/22 07:44 Resp 12 02/19/22 07:44 BP 127/55 02/19/22 04:00 Pulse Ox 96 02/19/22 07:00 FiO2 40 02/19/22 07:17 Intake & Output 02/18/22 02/19/22 02/19/22 18:59 06:59 18:59 Intake Total 1192.588 764.160 134.124 Output Total 3125 530 40 Balance -1932.412 234.160 94.124 Weight 121.7 kg 115.8 kg Intake: IV 866 150 13 Piperacillin-Tazobactam 3 125 .375 gm In Sodium Chloride 0.9% 100 ml @ 25 mls/hr IVPB Q8HR [facility] Rx# :[id number] Sodium Chloride 0.9% 1, 240 120 10 000 ml @ 10 mls/hr IV . Q24H [facility] Rx#:[id number] Vancomycin 2,250 mg In 501 Sodium Chloride 0.9% 500 ml 500 ml @ 167 mls/hr IVPB ONCE ONE Rx#: [id number] pressure bag 30 3 Intake, IV Titration 256.588 244.160 91.124 Amount Norepinephrine 4 mg In 36.408 Sodium Chloride 0.9% 250 ml @ 0.05 MCG/KG/MIN 20. 765 mls/hr IV .[id number] [facility] Rx#:[id number] propofoL 1,000 mg In 220.180 244.160 91.124 Empty Bag 1 bag @ 5 MCG/ KG/MIN 3.27 mls/hr IV . Q24H [facility] Rx#:[id number] Tube Feeding 70 310 30 Other 60 Output: Urine 3125 530 40 Other: Voiding Method Indwelling Catheter Indwelling Catheter ABP, PAP, CO, CI - Last Documented Arterial Blood Pressure 120/54 - Labs CBC & Chem 7: 02/19/22 05:13 02/19/22 11:00 Labs: Abnormal Lab Results - Last 24 Hours (Table) 02/18/22 02/18/22 02/18/22 Range/Units 11:29 18:02 21:04 RBC (3.80-5.40) m/uL Hgb (11.4-16.0) gm/dL Hct (34.0-46.0) % MCHC (31.0-37.0) g/dL ABG pCO2 (35-45) mmHg ABG HCO3 (21-25) mmol/L ABG Total CO2 (19-24) mmol/L ABG O2 Saturation (94-97) % POC Glucose (mg/dL) 247 H 250 H 222 H (75-99) mg/dL 02/18/22 02/19/22 02/19/22 Range/Units 23:41 02:04 05:13 RBC 2.92 L (3.80-5.40) m/uL Hgb 8.4 L (11.4-16.0) gm/dL Hct 28.8 L (34.0-46.0) % MCHC 29.1 L (31.0-37.0) g/dL ABG pCO2 (35-45) mmHg ABG HCO3 (21-25) mmol/L ABG Total CO2 (19-24) mmol/L ABG O2 Saturation (94-97) % POC Glucose (mg/dL) 236 H 244 H (75-99) mg/dL 02/19/22 02/19/22 Range/Units 05:32 06:11 RBC (3.80-5.40) m/uL Hgb (11.4-16.0) gm/dL Hct (34.0-46.0) % MCHC (31.0-37.0) g/dL ABG pCO2 61 H (35-45) mmHg ABG HCO3 39 H (21-25) mmol/L ABG Total CO2 40 H (19-24) mmol/L ABG O2 Saturation 97.7 H (94-97) % POC Glucose (mg/dL) 286 H (75-99) mg/dL Microbiology - Last 24 Hours (Table) 02/14/22 18:17 Blood Culture - Preliminary Blood No Growth after 96 hours 02/14/22 18:29 Blood Culture - Preliminary Blood No Growth after 96 hours
[2022-02-19 19:50] LABS: Glucose,Whole Blood 328 mg/dL (75-99)
[2022-02-19] MEDS: INSULIN DETEMIR (LEVEMIR) 100 UNIT/ML SYR SQ SCH (20:15)
[2022-02-19] MEDS ORDERED: INSULIN DETEMIR (LEVEMIR) 100 UNIT/ML SYR SQ SCH (21:00)
[2022-02-19 23:30] LABS: Glucose,Whole Blood 326 mg/dL (75-99)
[2022-02-20] MEDS: NOREPINEPHRINE 4 MG in SODIUM CHLORIDE 0.9% 250 ML IV SCH ×2 (03:29→11:31)
[2022-02-20] MEDS: SODIUM CHLORIDE 0.9% 1,000 ML IV SCH (03:29)
[2022-02-20 04:45] LABS: Basophils % (A) 0 %; Eosinophils # (A) 0.3 k/uL (0-0.7); Eosinophils % (A) 4 %; HCT 29.7 % (34.0-46.0); HGB 8.9 gm/dL (11.4-16.0); Hypochromasia Marked; Lymphocytes # (A) 0.5 k/uL (1.0-4.8); Lymphocytes % (A) 7 %; MCH 29.3 pg (25.0-35.0); MCV 97.4 fL (80.0-100.0); Mean Platelet Volume 9.6; Monocytes # (A) 0.4 k/uL (0-1.0); Monocytes % (A) 5 %; Neutrophils # (A) 5.9 k/uL (1.3-7.7); Neutrophils % (A) 82 %; Platelet Count 224 k/uL (150-450); RBC 3.05 m/uL (3.80-5.40); RDW 15.5 % (11.5-15.5); WBC 7.2 k/uL (3.8-10.6)
[2022-02-20 05:51] LABS: ABG PCO2 61 mmHg (35-45); ABG PH 7.43 (7.35-7.45); ABG PO2 107 mmHg (83-108); Allen Test Performed? Yes
[2022-02-20 05:52] LABS: ABG Base Excess 16.5 mmol/L; ABG HCO3 41 mmol/L (21-25); ABG TCO2 43 mmol/L (19-24)
[2022-02-20 06:02] LABS: Glucose,Whole Blood 214 mg/dL (75-99)
[2022-02-20] MEDS: INSULIN ASPART (NovoLOG) 100 UNIT/ML VIAL SQ SCH ×3 (06:38→17:12)
[2022-02-20 07:17] LABS: ALT 13 U/L (4-34); AST 18 U/L (14-36); African American GFR (CKD) >90 (>60 ml/min/1.73 sqM); Albumin 2.8 g/dL (3.5-5.0); Alkaline Phosphatase 69 U/L (38-126); Anion Gap 4 mmol/L; Blood Urea Nitrogen 16 mg/dL (7-17); Calcium 8.4 mg/dL (8.4-10.2); Carbon Dioxide 38 mmol/L (22-30); Chloride 100 mmol/L (98-107); Glucose 219 mg/dL (74-99); Non-African American GFR(CKD) 85 (>60 ml/min/1.73 sqM); Potassium 3.9 mmol/L (3.5-5.1); Sodium 142 mmol/L (137-145); Total Bilirubin 0.2 mg/dL (0.2-1.3); Total Protein 5.8 g/dL (6.3-8.2)
[2022-02-20] MEDS: BUDESONIDE 0.5 MG/2 ML NEBU INHALATION SCH ×2 (07:29→20:01)
[2022-02-20] MEDS: ALBUTEROL NEBULIZED 2.5 MG/3 ML INHALATION SCH ×4 (07:29→20:01)
--- NOTE | 2022-02-20 08:17 | XR ---
EXAMINATION TYPE: XR chest 1V portable DATE OF EXAM: 02/20/2022 COMPARISON: X-ray dated 02/19/2022 HISTORY: Tube placement TECHNIQUE: Single frontal view of the chest is obtained. FINDINGS: The tip of endotracheal tube is about 4.7 cm proximal to the earnestine. Good position of the NG tube. Improving bilateral pulmonary patchy opacities yet not completely resolved. Suspected pleural effusio ns slightly larger on the left side. Unchanged cardiomediastinal silhouette and bony thoracic cage. IMPRESSION: Interval changes as described above.
[2022-02-20] MEDS: PIPERACILLIN-TAZOBACTAM 3.375 GM in SODIUM CHLORIDE 0.9% 100 ML IVPB SCH ×2 (08:19→16:32)
[2022-02-20] MEDS: FUROSEMIDE 10 MG/ML 4 ML VIAL IV SCH (08:19)
[2022-02-20] MEDS: ENOXAPARIN 40 MG/0.4 ML SYRINGE SQ SCH (08:19)
[2022-02-20] MEDS: IMIPRAMINE 25 MG TAB PO SCH ×2 (08:19→20:23)
[2022-02-20] MEDS: CHLORHEXIDINE GLUCONATE 15 ML CUP MUCOUS MEM SCH ×2 (08:19→20:23)
[2022-02-20] MEDS: ASPIRIN 81 MG PO SCH (08:20)
[2022-02-20] MEDS: ATORVASTATIN 20 MG TAB PO SCH (08:20)
[2022-02-20] MEDS ORDERED: POTASSIUM BICARBONATE/CIT AC 20 MEQ TABLET.EFF NG-TUBE SCH (09:00)
--- NOTE | 2022-02-20 11:22 | P.PN ---
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 Lifelong nonsmoker. the patient also has had previous history of recurrent UTIs, and she has a permanent Humphrey catheter in place at this point in time. she has had several hospitalizations in the past. I recently saw her in the office and she was quite stable. The patient came into the hospital becausse of altered mentation and some increased shortness of breath. the patient was seen in the ED and she was given a CAT scan of the brain that showed no acute abnormalities. her chest x-ray showed some myocardial megaly and small amount of fluid in the minor fissure and small or effusions. Otherwise other acute abnormalities have been noted. the patient's labs showed a white cell count of 7 with a hemoglobin of 10 and a platelet count of 231. Blood gases showed a pH of 7.42 with a pCO2 of 64 and pO2 113 and this was done and FiO2 of 35% I believe this was done while on the BiPAP. serum bicarb is 41 with a sodium level of 142 and a potassium level of 3.9. Glucose is 105. troponins of 0.04 and a calcium level is at 8.3. urinalysis has been abnorrmal with increased white cell count and the patient has a permanent Humphrey catheter in place due to chronic urinary retention. The is been doing bladder flushes on this patient which is reduced the frequency of UTIs. Marilee most recent UTI was related to Klebsiella pneumoniae on 12/25/2021. Prior to that the patient had other gram-negative infections including infections with Enterobacter. For now, the patient is on IV fluids. She is on a BiPAP at a pressure of 12/6 cm of water with an FiO2 of 35%. In terms of antibiotics, the patient was given IV Rocephin. On today's evaluation of 02/16/2022, the patient is feeling better. She has no new complaints. She spent the night on BiPAP and currently she is on oxygen at 4 L. No chest pain. No nausea or vomiting. She has gram-negative UTI for which is on IV Rocephin. Seems to more alert and awake compared to yesterday and less lethargic. 02/17/2022, the patient is in the intensive care unit, intubated on a mechanical ventilator. Events from yesterday were noted. The patient was essentially stable. She was being fed in the evening and she sustained a massive a spiration. Progressively she became worse and she became hypoxic and hypercapnic and altered and she was very much tachypnea respiratory rate was in the 40s. She was given a trial of BiPAP which she feels and subsequently admitted recommendations to intubate patient and bring her to the intensive care unit. She became also septic and hypotensive during the process. For now, the patient is intubated on a mechanical ventilator. She is currently in the intensive care unit on propofol running at 50 mcg/kg per minute. She is also on assist control mode of mechanical ventilation at the rate of 24 with a tidal volume of 400 and FiO2 of 80% with a PEEP of 15. Blood gases from this morning shows a pH of 7.49 with a pCO2 of 45 and pO2 of 103. This was not an FiO2 of 100% and currently her FiO2 is down to 80%. Meanwhile I reviewed the series of chest x-ray that was done pre-and post intubation. The most recent chest x-ray shows multilobar pneumonia worsened the left perihilar left upper and left lower lobe. ET tube is around 3 cm above the earnestine and it's adequately positioned. The patient does not have any significant air leaks. Since the patient became hypotensive, she was given IV fluids and she received a total of 2 L normal saline bolus and currently her IV fluids running at the rate of 50 mL an hour. Pressors have also been added and the patient is currently on norepinephrine at 0.04 mcg/kg per minute. Her white cell count is at 15 with a hemoglobin of 11.3. BUN is at 13 with a creatinine of 1.1 and sodium is at 135. The patient was also given IV Zosyn covering for aspiration pneumonia. Note that her origin hospitalization was for a gram-negative UTI secondary to Enterobacter and Klebsiella and both of these microorganisms are sensitive to Zosyn. As such, the patient has been On single agent Zosyn. The patient is on Lovenox for DVT prophylaxis. The patient is also on NovoLog sliding scale coverage. Blood sugars are in the 200s range at this point in time. Patient was reevaluated on 02/18/22, patient remains in the ICU, intubated and mechanically ventilated. She is on assist control rate of 16 per volume 375 FiO2 40% PEEP of 15. However after evaluating the patient, I changed her ventilator settings to FiO2 of 45%, PEEP down to 12, respiration down to 12. And tidal volume was increased to 400. Patient had an ABG earlier today showed a pO2 of 114 pCO2 58 pH of 7.40 and looking at the bicarb on her initial presentation, it was relatively high, I believe the patient may have some underlying hypercapnia, and her pCO2 is likely in the high 50s normally. Patient is on propofol at 50 mcg/kg/m, she went off norepinephrine earlier this morning, she has IV fluid at 50 mL per hour in the form of 0.9 normal saline. She will be started on tube feeding today. Patient remains on Zosyn and vancomycin, she continues to have bilateral infiltrates consistent with aspiration pneumonia. WBC count today is 13.3 hemoglobin is 9.2. Basic metabol ic profile is normal bicarb is 34.. Profile is normal. Blood sugar is 247. Urine cultures are positive for Enterobacter cloacae and Klebsiella pneumoniae and these cultures are from 02/14/22. Reevaluated today on 02/19/22, patient remains in the ICU, remains intubated and mechanically ventilated. She is on assist control of 12 tidal volume 400 FiO2 40% and PEEP of 5 ABG showed a pO2 of 91 pCO2 61 pH of 7.41. Patient is not requiring any pressors. Patient failed the weaning yesterday, she went off sedation, however she became tachypneic, and did not follow any commands or instructions. Had to be placed back on sedation and continue mechanical ventilation. Today I plan to do the same and hold sedation and assessment of status at least today. She is still on propofol at 40 mcg/kg/m IV fluid at KVO vital HPI at 30 mL per hour. Chest x-ray continues show bilateral infiltrates. Patient will remain on antibiotics however I will discontinue vancomycin. No ventilator changes were made today. Patient remains on Zosyn but off vancomycin today. Remains on Lasix at 40 mg IV push daily. Remains on Joshua dilators and on GI and DVT prophylaxis. Reevaluated today on 02/21/20, remains intubated and mechanically ventilated. He is on assist control rate of 12 tidal volume 400 FiO2 40% PEEP of 12. I cut down her PEEP down to 8. ABG showed a pO2 of 107 pCO2 61 pH of 7.43. Patient remains on propofol presently at 30 mcg/kg/m, IV fluid at KVO, Zosyn for presumptive aspiration pneumonia. Remains on vital HPI 39 mL per hour. Patient did have sedation interruption yesterday, however still could not follow any instructions, opens eyes but does not follow any instructions. Chest x-ray continues show bilateral infiltrates consistent with aspiration pneumonia. Labs today showed WBC count of 7.2 hemoglobin 8.9. Basic metabolic profile is normal, renal profile is normal. Bicarb is 38 indicative of chronic hypercapnia and metabolic compensation Objective - Vital Signs Vital signs: Vital Signs Temp 97.6 F 02/20/22 08:00 Pulse 87 02/20/22 10:50 Resp 12 02/20/22 10:50 BP 127/55 02/19/22 04:00 Pulse Ox 98 02/20/22 10:00 FiO2 40 02/20/22 10:31 Intake & Output 02/19/22 02/20/22 02/20/22 18:59 06:59 18:59 Intake Total 2115.444 842 511.681 Output Total 2007 445 1470 Balance 107.444 397 -958.319 Weight 115.8 kg 116 kg Intake: IV 429 253 192 Piperacillin-Tazobactam 3 200 100 .375 gm In Sodium Chloride 0.9% 100 ml @ 25 mls/hr IVPB Q8HR [facility] Rx# :[id number] Sodium Chloride 0.9% 1, 190 220 80 000 ml @ 10 mls/hr IV . Q24H [facility] Rx#:[id number] pressure bag 39 33 12 Intake, IV Titration 852.444 100 133.681 Amount Vancomycin 2,000 mg In 500 Sodium Chloride 0.9% 500 ml 500 ml @ 167 mls/hr IVPB Q24H [facility] Rx#: [id number] propofoL 1,000 mg In 352.444 100 133.681 Empty Bag 1 bag @ 5 MCG/ KG/MIN 3.27 mls/hr IV . Q24H [facility] Rx#:[id number] Tube Feeding 474 429 156 Other 360 60 30 Output: Urine 2007 277 1470 Other: Voiding Method Indwelling Catheter Indwelling Catheter Indwelling Catheter ABP, PAP, CO, CI - Last Documented Arterial Blood Pressure 148/69 - Exam GENERAL EXAM: Revealed a 66-year-old female, intubated, in no distress. On propofol. HEAD: Normocephalic. Endotracheal tube and orogastric tube are intact. EYES: Unremarkable. NOSE: Unremarkable, intact orogastric tube.. THROAT: No erythema or exudates. NECK: No neck masses no JVD no stridor. Patient has short obese neck. CHEST: Symmetrical chest expansion noted chest wall tenderness. LUNGS: Symmetrical chest expansion, rhonchi noted bilaterally CVS: Normal S1 and S2, no S3 gallop, no murmur. ABDOMEN: Obese soft nontender no megaly no rebound no guarding. Positive bowel sounds. SKIN: No rashes CENTRAL NERVOUS SYSTEM: Sedated, could not assess EXTREMITIES: No clubbing edema or cyanosis. - Labs CBC & Chem 7: 02/20/22 04:28 02/20/22 04:28 Labs: Abnormal Lab Results - Last 24 Hours (Table) 02/19/22 02/19/22 02/19/22 Range/Units 11:00 17:26 19:47 RBC (3.80-5.40) m/uL Hgb (11.4-16.0) gm/dL Hct (34.0-46.0) % MCHC (31.0-37.0) g/dL Lymphocytes # (1.0-4.8) k/uL ABG pCO2 (35-45) mmHg ABG HCO3 (21-25) mmol/L ABG Total CO2 (19-24) mmol/L ABG O2 Saturation (94-97) % Potassium 3.2 L (3.5-5.1) mmol/L Carbon Dioxide 37 H (22-30) mmol/L Glucose 273 H (74-99) mg/dL POC Glucose (mg/dL) 292 H 328 H (75-99) mg/dL Calcium 8.3 L (8.4-10.2) mg/dL Total Protein 5.8 L (6.3-8.2) g/dL Albumin 2.9 L (3.5-5.0) g/dL 02/19/22 02/20/22 02/20/22 Range/Units 23:29 04:28 04:28 RBC 3.05 L (3.80-5.40) m/uL Hgb 8.9 L (11.4-16.0) gm/dL Hct 29.7 L (34.0-46.0) % MCHC 30.0 L (31.0-37.0) g/dL Lymphocytes # 0.5 L (1.0-4.8) k/uL ABG pCO2 (35-45) mmHg ABG HCO3 (21-25) mmol/L ABG Total CO2 (19-24) mmol/L ABG O2 Saturation (94-97) % Potassium (3.5-5.1) mmol/L Carbon Dioxide 38 H (22-30) mmol/L Glucose 219 H (74-99) mg/dL POC Glucose (mg/dL) 326 H (75-99) mg/dL Calcium (8.4-10.2) mg/dL Total Protein 5.8 L (6.3-8.2) g/dL Albumin 2.8 L (3.5-5.0) g/dL 02/20/22 02/20/22 Range/Units 05:45 06:00 RBC (3.80-5.40) m/uL Hgb (11.4-16.0) gm/dL Hct (34.0-46.0) % MCHC (31.0-37.0) g/dL Lymphocytes # (1.0-4.8) k/uL ABG pCO2 61 H (35-45) mmHg ABG HCO3 41 H* (21-25) mmol/L ABG Total CO2 43 H (19-24) mmol/L ABG O2 Saturation 99.0 H (94-97) % Potassium (3.5-5.1) mmol/L Carbon Dioxide (22-30) mmol/L Glucose (74-99) mg/dL POC Glucose (mg/dL) 214 H (75-99) mg/dL Calcium (8.4-10.2) mg/dL Total Protein (6.3-8.2) g/dL Albumin (3.5-5.0) g/dL Microbiology - Last 24 Hours (Table) 02/14/22 18:17 Blood Culture - Preliminary Blood No Growth after 120 hours 02/14/22 18:29 Blood Culture - Preliminary Blood No Growth after 120 hours 02/16/22 22:45 Gram Stain - Final Sputum Sputum Culture - Final Chaya albicans Assessment and Plan Assessment: Impression: Acute hypoxic respiratory failure secondary to aspiration pneumonia Acute urinary tract infection secondary Enterobacter cloacae and Klebsiella pneumoniae Acute toxic metabolic encephalopathy secondary to sepsis and aspiration pneumonia Hypotension secondary to sepsis, and suspect septic shock since the patient required low-dose pressors. Chronic diastolic congestive heart failure History of aortic stenosis, being considered for the aVR. Olivopontocerebellar demyelination Suspect obesity hypoventilation syndrome Chronic urinary incontinence and previous chronic indwelling Humphrey catheter Type 2 diabetes. Suspect obstructive sleep apnea syndrome, on CPAP. Suspect chronic hypercapnic respiratory failure secondary to obstructive sleep apnea and obesity/hypoventilation syndrome History of sarcoidosis. Medical debility, patient is on electric wheelchair. Recommendation: Continue ventilatory support. Daily interruption of sedation and assessment of mental status as well as potentially checking weaning parameters. Continue nutritional support. Continue antibiotics and/Zosyn. Continue nutritional support./Enteral feeding. Daily weaning trials and sedation interruption or possible weaning. Continue Levemir insulin. And glucose control. Continue GI and DVT prophylaxis. Patient is critically ill, critical care time is over 30 minutes Prognosis remains extremely poor and guarded. Patient may eventually require tracheostomy and PEG tube placement Time with Patient: Greater than 30
[2022-02-20 11:28] LABS: Glucose,Whole Blood 260 mg/dL (75-99)
[2022-02-20 17:11] LABS: Glucose,Whole Blood 255 mg/dL (70-110)
[2022-02-20] MEDS: INSULIN DETEMIR (LEVEMIR) 100 UNIT/ML SYR SQ SCH (20:23)
[2022-02-20 23:43] LABS: Glucose,Whole Blood 264 mg/dL (70-110)
[2022-02-21] MEDS: PIPERACILLIN-TAZOBACTAM 3.375 GM in SODIUM CHLORIDE 0.9% 100 ML IVPB SCH ×4 (00:31→23:12)
[2022-02-21] MEDS: INSULIN ASPART (NovoLOG) 100 UNIT/ML VIAL SQ SCH ×6 (00:32→23:17)
[2022-02-21] MEDS: SODIUM CHLORIDE 0.9% 1,000 ML IV SCH (03:16)
[2022-02-21] MEDS: NOREPINEPHRINE 4 MG in SODIUM CHLORIDE 0.9% 250 ML IV SCH ×2 (03:16→15:07)
[2022-02-21 04:38] LABS: Basophils % (A) 1 %; Eosinophils # (A) 0.3 k/uL (0-0.7); Eosinophils % (A) 5 %; HCT 30.3 % (34.0-46.0); HGB 9.1 gm/dL (11.4-16.0); Hypochromasia Marked; Lymphocytes # (A) 0.6 k/uL (1.0-4.8); Lymphocytes % (A) 11 %; MCH 29.4 pg (25.0-35.0); MCHC 30.2 g/dL (31.0-37.0); MCV 97.5 fL (80.0-100.0); Mean Platelet Volume 9.3; Monocytes # (A) 0.3 k/uL (0-1.0); Monocytes % (A) 6 %; Neutrophils % (A) 76 %; Platelet Count 240 k/uL (150-450); RBC 3.11 m/uL (3.80-5.40); RDW 15.4 % (11.5-15.5); WBC 5.3 k/uL (3.8-10.6)
[2022-02-21 04:51] LABS: ALT 15 U/L (4-34); AST 21 U/L (14-36); African American GFR (CKD) >90 (>60 ml/min/1.73 sqM); Albumin 2.8 g/dL (3.5-5.0); Alkaline Phosphatase 72 U/L (38-126); Blood Urea Nitrogen 20 mg/dL (7-17); Calcium 8.4 mg/dL (8.4-10.2); Chloride 99 mmol/L (98-107); Glucose 245 mg/dL (74-99); Non-African American GFR(CKD) 87 (>60 ml/min/1.73 sqM); Potassium 3.7 mmol/L (3.5-5.1); Sodium 142 mmol/L (137-145); Total Bilirubin 0.2 mg/dL (0.2-1.3); Total Protein 5.8 g/dL (6.3-8.2)
[2022-02-21 04:58] LABS: Anion Gap 2 mmol/L
[2022-02-21 05:09] LABS: Carbon Dioxide 41 mmol/L (22-30)
--- NOTE | 2022-02-21 05:13 | P.PN ---
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 Lifelong nonsmoker. the patient also has had previous history of recurrent UTIs, and she has a permanent Humphrey catheter in place at this point in time. she has had several hospitalizations in the past. I recently saw her in the office and she was quite stable. The patient came into the hospital becausse of altered mentation and some increased shortness of breath. the patient was seen in the ED and she was given a CAT scan of the brain that showed no acute abnormalities. her chest x-ray showed some myocardial megaly and small amount of fluid in the minor fissure and small or effusions. Otherwise other acute abnormalities have been noted. the patient's labs showed a white cell count of 7 with a hemoglobin of 10 and a platelet count of 231. Blood gases showed a pH of 7.42 with a pCO2 of 64 and pO2 113 and this was done and FiO2 of 35% I believe this was done while on the BiPAP. serum bicarb is 41 with a sodium level of 142 and a pot assium level of 3.9. Glucose is 105. troponins of 0.04 and a calcium level is at 8.3. urinalysis has been abnorrmal with increased white cell count and the patient has a permanent Humphrey catheter in place due to chronic urinary retention. The is been doing bladder flushes on this patient which is reduced the frequency of UTIs. Marilee most recent UTI was related to Klebsiella pneumoniae on 12/25/2021. Prior to that the patient had other gram-negative infections including infections with Enterobacter. For now, the patient is on IV fluids. She is on a BiPAP at a pressure of 12/6 cm of water with an FiO2 of 35%. In terms of antibiotics, the patient was given IV Rocephin. On today's evaluation of 02/16/2022, the patient is feeling better. She has no new complaints. She spent the night on BiPAP and currently she is on oxygen at 4 L. No chest pain. No nausea or vomiting. She has gram-negative UTI for which is on IV Rocephin. Seems to more alert and awake compared to yesterday and less lethargic. 02/17/2022, the patient is in the intensive care unit, intubated on a mechanical ventilator. Events from yesterday were noted. The patient was essentially stable. She was being fed in the evening and she sustained a massive aspiration. Progressively she became worse and she became hypoxic and hypercapnic and altered and she was very much tachypnea respiratory rate was in the 40s. She was given a trial of BiPAP which she feels and subsequently admitted recommendations to intubate patient and bring her to the intensive care unit. She became also septic and hypotensive during the process. For now, the patient is intubated on a mechanical ventilator. She is currently in the intensive care unit on propofol running at 50 mcg/kg per minute. She is also on assist control mode of mechanical ventilation at the rate of 24 with a tidal volume of 400 and FiO2 of 80% with a PEEP of 15. Blood gases from this morning shows a pH of 7.49 with a pCO2 of 45 and pO2 of 103. This was not an FiO2 of 100% and currently her FiO2 is down to 80%. Meanwhile I reviewed the series of chest x-ray that was done pre-and post intubation. The most recent chest x-ray shows multilobar pneumonia worsened the left perihilar left upper and left lower lobe. ET tube is around 3 cm above the earnestine and it's adequately positioned. The patient does not have any significant air leaks. Since the patient became hypotensive, she was given IV fluids and she received a total of 2 L normal saline bolus and currently her IV fluids running at the rate of 50 mL an hour. Pressors have also been added and the patient is currently on norepinephrine at 0.04 mcg/kg per minute. Her white cell count is at 15 with a hemoglobin of 11.3. BUN is at 13 with a creatinine of 1.1 and sodium is at 135. The patient was also given IV Zosyn covering for aspiration pneumonia. Note that her origin hospitalization was for a gram-negative UTI secondary to Enterobacter and Klebsiella and both of these microorganisms are sensitive to Zosyn. As such, the patient has been On single agent Zosyn. The patient is on Lovenox for DVT prophylaxis. The patient is also on NovoLog sliding scale coverage. Blood sugars are in the 200s range at this point in time. Patient was reevaluated on 02/17/22, patient remains in the ICU, intubated and mechanically ventilated. She is on assist control rate of 16 per volume 375 FiO2 40% PEEP of 15. However after evaluating the patient, I changed her ventilator settings to FiO2 of 45%, PEEP down to 12, respiration down to 12. And tidal volume was increased to 400. Patient had an ABG earlier today showed a pO2 of 114 pCO2 58 pH of 7.40 and looking at the bicarb on her initial presentation, it was relatively high, I believe the patient may have some unde rlying hypercapnia, and her pCO2 is likely in the high 50s normally. Patient is on propofol at 50 mcg/kg/m, she went off norepinephrine earlier this morning, she has IV fluid at 50 mL per hour in the form of 0.9 normal saline. She will be started on tube feeding today. Patient remains on Zosyn and vancomycin, she continues to have bilateral infiltrates consistent with aspiration pneumonia. WBC count today is 13.3 hemoglobin is 9.2. Basic metabolic profile is normal bicarb is 34.. Profile is normal. Blood sugar is 247. Urine cultures are positive for Enterobacter cloacae and Klebsiella pneumoniae and these cultures are from 02/14/22. 02/18/2022 Patient is seen in follow-up this morning continues to be on mechanical vent with an FiO2 of 45% and PEEP is 12. Patient continues on sedation of propofol and also continues with IV Zosyn and vancomycin for aspiration pneumonia. Chest xray shows bilateral patchy densities and left pleural effusion. Patient is off pressor support and some adjustments to the vent being made. Started enteral nutrition and blood sugars remain mildly elevated. Recommend to continue with gentle IV fluids and accuchecks and sliding scale achs. long acting as well. Will adjust accordingly. WBC trending down and patient is afebrile. 02/19/2022 Patient is seen this morning continues to be in the ICU on mechanical vent and FiO2 is 40% with a PEEP of 12. Patient continues on sedation and also maintained on 40 mg of IV Lasix daily along with IV Zosyn and will continue. Vancomycin discontinued. Blood sugars mildly elevated and will increase long-acting insulin and continue with sliding scale and Accu-Cheks before meals and at bedtime and as needed. Chest x-ray today shows unchanged cardiomediastinal silhouette with persistent bilateral pulmonary patchy opacification is slightly improved in the right upper lung zone an NG tube is noted. WBC is trending down at 10.0 hemoglobin is stable at 8.4. As mentioned previously blood sugars are elevated and will increase insulins. Patient is currently afebrile. Sputum cultures pending at this time and blood cultures remain negative. Urine culture showing Enterobacter Cloacae along with Klebsiella pneumonia. 02/20/2022 Patient is evaluated today during a sedation holiday and does not tolerate very well. Patient to continue on Propofol with ongoing assessment for weaning parameters. Patient is not on pressor support. Patient continues on vent with FI02 of 40%. Patient is also on IV antibiotics and sputum culture showing chapin albicans and will add diflucan. Recommend follow up on chest xray and repeat am labs ordered. Follow up on magnesium and replace per protocol. Will increase long acting insulin and recommend continued monitoring. Patient is afebrile. Review of systems: Unable to obtain as patient is currently intubated Active Medications Acetaminophen (Acetaminophen Tab 325 Mg Tab) 650 mg PO Q4HR PRN PRN Reason: Fever and/or Mild Pain Last Admin: 02/17/22 14:56 Dose: 650 mg Acetaminophen (Acetaminophen Suppository 650 Mg Supp) 650 mg RECTAL Q4HR PRN PRN Reason: Fever and/ or Pain Last Admin: 02/17/22 04:18 Dose: 650 mg Albuterol Sulfate (Albuterol Nebulized 2.5 Mg/3 Ml) 2.5 mg INHALATION RT-QID [facility] Last Admin: 02/20/22 20:01 Dose: Not Given Aspirin (Aspirin 81 Mg) 81 mg PO DAILY [facility] Last Admin: 02/20/22 08:20 Dose: 81 mg Atorvastatin Calcium (Atorvastatin 20 Mg Tab) 20 mg PO DAILY [facility] Last Admin: 02/20/22 08:20 Dose: 20 mg Budesonide (Budesonide 0.5 Mg/2 Ml Nebu) 0.5 mg INHALATION RT-BID [facility] Last Admin: 02/20/22 20:01 Dose: Not Given Chlorhexidine Gluconate (Chlorhexidine Gluconate 15 Ml Cup) 15 ml MUCOUS MEM BID [facility] Last Admin: 02/20/22 20:23 Dose: 15 ml Enoxaparin Sodium (Enoxaparin 40 Mg/0.4 Ml Syringe) 40 mg SQ DAILY [facility] Last Admin: 02/20/22 08:19 Dose: 40 mg Furosemide (Furosemide 10 Mg/Ml 4 Ml Vial) 40 mg IV DAILY [facility] Last Admin: 02/20/22 08:19 Dose: 40 mg Piperacillin Sod/Tazobactam (Sod 3.375 gm/ Sodium Chloride) 100 mls @ 25 mls/hr IVPB Q8HR [facility]; Protocol Last Admin: 02/21/22 00:31 Dose: 25 mls/hr Propofol 1,000 mg/ IV Solution 100 mls @ 3.27 mls/hr IV .Q24H [facility]; Protocol Last Admin: 02/21/22 03:15 Dose: 30 mcg/kg/min, 19.62 mls/hr Norepinephrine Bitartrate 4 mg (/ Sodium Chloride) 254 mls @ 20.765 mls/hr IV .[id number] [facility]; Protocol Last Admin: 02/21/22 03:16 Dose: Not Given Sodium Chloride (Saline 0.9%) 1,000 mls @ 10 mls/hr IV .Q24H [facility] Last Admin: 02/21/22 03:16 Dose: 10 mls/hr Imipramine HCl (Imipramine 25 Mg Tab) 25 mg PO BID [facility] Last Admin: 02/20/22 20:23 Dose: 25 mg Insulin Aspart (Insulin Aspart (Novolog) 100 Unit/Ml Vial) 0 unit SQ Q6H [facility]; Protocol Last Admin: 02/21/22 00:32 Dose: 6 unit Insulin Detemir (Insulin Detemir (Levemir) 100 Unit/Ml Syr) [address] [facility] Miscellaneous Information (Potassium Replacement Protocol 1 Each Misc) 1 each MISCELLANE DAILY PRN; Protocol PRN Reason: Per Protocol Naloxone HCl (Naloxone 0.4 Mg/Ml 1 Ml Vial) 0.2 mg IV Q2M PRN PRN Reason: Opioid Reversal Physical exam: GENERAL EXAM: a 66-year-old female, morbidly obese, intubated and sedated on propofol with a vent setting of 40% FI02 HEENT: Normocephalic. PERRLA, Endotracheal tube and orogastric tube are intact. nares are patent NECK: No masses, no JVD. Short obese neck LUNGS: Symmetrical chest expansion, diminished breath sounds bilaterally with some crackles at the bases. No rhonchi no wheezes. CARDIO: S1 and S2 muffled with no audible murmur, regular rhythm. ABDOMEN: soft, obese, non-distended, normal bowel sounds, no guarding or rigidity. SKIN: No rashes Neurological: Cannot assess completely, patient is sedated, on propofol. EXTREMITIES: No clubbing edema or cyanosis. generalized edema noted throughout Assessment: Acute hypoxic respiratory failure secondary to aspiration pneumonia Acute urinary tract infection secondary Enterobacter cloacae and Klebsiella pneumoniae Acute toxic metabolic encephalopathy secondary to sepsis and aspiration pneumonia Hypotension secondary to sepsis, with possible septic shock as patient was initially on pressor support, off pressors Chronic diastolic congestive heart failure History of Olivopontocerebellar demyelination Possible obesity hypoventilation syndrome diabetes mellitus, type 2 uncontrolled with hyperglycemia. obstructive sleep apnea syndrome, on CPAP. Possible chronic hypercapnic respiratory failure secondary to obstructive sleep apnea and obesity/hypoventilation syndrome History of sarcoidosis. GI prophylaxis DVT prophylaxis Full code Plan: Recommend to continue with close monitoring in the ICU with sedation holidays and weaning parameters being assessed. Patient remains on mechanical vent at 40% FiO2. Not ready for weaning and extubation at this time Recommend to continue with accuchecks achs and have increased long acting insulin for the elevated blood sugars Continue antibiotics in the form of Zosyn and sputum culture showing chapin albicans and will add diflucan Recommend follow up chest xray and labs in the am, follow up on low magnesium and replace per protocol Overall prognosis is poor and extremely guarded at this time. The impression and plan of care has been dictated by Ayleen Cheng, Nurse Practitioner as directed. MD Laisha I have performed a history and examination and MDM of this patient, discussed the same with the dictator, and agree with the dictator's assessment and plan as written ,documented as a scribe. Based on total visit time, I have performed more than 50% of the visit. Objective - Vital Signs Vital signs: Vital Signs Temp 98.1 F 02/20/22 04:00 Pulse 82 02/20/22 07:45 Resp 12 02/20/22 07:45 BP 127/55 02/19/22 04:00 Pulse Ox 97 02/20/22 06:00 FiO2 40 02/20/22 07:21 Intake & Output 02/19/22 02/20/22 02/20/22 18:59 06:59 18:59 Intake Total 2115.444 842 100 Output Total 2007 445 Balance 107.444 397 100 Weight 115.8 kg 116 kg Intake: IV 429 253 Piperacillin-Tazobactam 3 200 .375 gm In Sodium Chloride 0.9% 100 ml @ 25 mls/hr IVPB Q8HR [facility] Rx# :[id number] Sodium Chloride 0.9% 1, 190 220 000 ml @ 10 mls/hr IV . Q24H [facility] Rx#:[id number] pressure bag 39 33 Intake, IV Titration 852.444 100 100 Amount Vancomycin 2,000 mg In 500 Sodium Chloride 0.9% 500 ml 500 ml @ 167 mls/hr IVPB Q24H [facility] Rx#: [id number] propofoL 1,000 mg In 352.444 100 100 Empty Bag 1 bag @ 5 MCG/ KG/MIN 3.27 mls/hr IV . Q24H [facility] Rx#:[id number] Tube Feeding 474 429 Other 360 60 Output: Urine 2007 Other: Voiding Method Indwelling Catheter Indwelling Catheter ABP, PAP, CO, CI - Last Documented Arterial Blood Pressure 122/58 - Labs CBC & Chem 7: 02/21/22 04:23 02/20/22 04:28 Labs: Abnormal Lab Results - Last 24 Hours (Table) 02/19/22 02/19/22 02/19/22 Range/Units 11:00 11:01 17:26 RBC (3.80-5.40) m/uL Hgb (11.4-16.0) gm/dL Hct (34.0-46.0) % MCHC (31.0-37.0) g/dL Lymphocytes # (1.0-4.8) k/uL ABG pCO2 (35-45) mmHg ABG HCO3 (21-25) mmol/L ABG Total CO2 (19-24) mmol/L ABG O2 Saturation (94-97) % Potassium 3.2 L (3.5-5.1) mmol/L Carbon Dioxide 37 H (22-30) mmol/L Glucose 273 H (74-99) mg/dL POC Glucose (mg/dL) 280 H 292 H (75-99) mg/dL Calcium 8.3 L (8.4-10.2) mg/dL Total Protein 5.8 L (6.3-8.2) g/dL Albumin 2.9 L (3.5-5.0) g/dL 02/19/22 02/19/22 02/20/22 Range/Units 19:47 23:29 04:28 RBC 3.05 L (3.80-5.40) m/uL Hgb 8.9 L (11.4-16.0) gm/dL Hct 29.7 L (34.0-46.0) % MCHC 30.0 L (31.0-37.0) g/dL Lymphocytes # 0.5 L (1.0-4.8) k/uL ABG pCO2 (35-45) mmHg ABG HCO3 (21-25) mmol/L ABG Total CO2 (19-24) mmol/L ABG O2 Saturation (94-97) % Potassium (3.5-5.1) mmol/L Carbon Dioxide (22-30) mmol/L Glucose (74-99) mg/dL POC Glucose (mg/dL) 328 H 326 H (75-99) mg/dL Calcium (8.4-10.2) mg/dL Total Protein (6.3-8.2) g/dL Albumin (3.5-5.0) g/dL 02/20/22 02/20/22 02/20/22 Range/Units 04:28 05:45 06:00 RBC (3.80-5.40) m/uL Hgb (11.4-16.0) gm/dL Hct (34.0-46.0) % MCHC (31.0-37.0) g/dL Lymphocytes # (1.0-4.8) k/uL ABG pCO2 61 H (35-45) mmHg ABG HCO3 41 H* (21-25) mmol/L ABG Total CO2 43 H (19-24) mmol/L ABG O2 Saturation 99.0 H (94-97) % Potassium (3.5-5.1) mmol/L Carbon Dioxide 38 H (22-30) mmol/L Glucose 219 H (74-99) mg/dL POC Glucose (mg/dL) 214 H (75-99) mg/dL Calcium (8.4-10.2) mg/dL Total Protein 5.8 L (6.3-8.2) g/dL Albumin 2.8 L (3.5-5.0) g/dL Microbiology - Last 24 Hours (Table) 02/14/22 18:17 Blood Culture - Preliminary Blood No Growth after 120 hours 02/14/22 18:29 Blood Culture - Preliminary Blood No Growth after 120 hours 02/16/22 22:45 Gram Stain - Final Sputum Sputum Culture - Final Chapin albicans
[2022-02-21] MEDS ORDERED: POTASSIUM BICARBONATE/CIT AC 20 MEQ TABLET.EFF NG-TUBE SCH (06:00)
[2022-02-21 06:16] LABS: ABG Base Excess 16.7 mmol/L; ABG Oxygen Saturation 98.1 % (94-97); ABG PCO2 60 mmHg (35-45); ABG PH 7.44 (7.35-7.45); ABG PO2 93 mmHg (83-108); ABG TCO2 43 mmol/L (19-24); Allen Test Performed? Yes
[2022-02-21 06:18] LABS: ABG HCO3 41 mmol/L (21-25)
[2022-02-21 06:36] LABS: Glucose,Whole Blood 239 mg/dL (70-110)
[2022-02-21] MEDS: ALBUTEROL NEBULIZED 2.5 MG/3 ML INHALATION SCH ×4 (07:42→19:11)
--- NOTE | 2022-02-21 08:15 | XR ---
EXAMINATION TYPE: XR chest 1V portable DATE OF EXAM: 02/21/2022 COMPARISON: X-ray dated 02/20/2022 HISTORY: Tube placement TECHNIQUE: Single frontal view of the chest is obtained. FINDINGS: The tip of endotracheal tube is about 3.5 cm proximal to the earnestine. Good position of the NG tube. Im proving pulmonary vascular congestion. Persistent bilateral pulmonary patchy opacities, grossly stable. Unchanged cardiomediastinal silhouet te and bony thoracic cage. IMPRESSION: As above.
[2022-02-21] MEDS: CHLORHEXIDINE GLUCONATE 15 ML CUP MUCOUS MEM SCH ×2 (08:31→21:20)
[2022-02-21] MEDS: ENOXAPARIN 40 MG/0.4 ML SYRINGE SQ SCH (08:31)
[2022-02-21] MEDS: FUROSEMIDE 10 MG/ML 4 ML VIAL IV SCH (08:32)
[2022-02-21] MEDS: ATORVASTATIN 20 MG TAB PO SCH (08:32)
[2022-02-21] MEDS: ASPIRIN 81 MG PO SCH (08:32)
[2022-02-21] MEDS: IMIPRAMINE 25 MG TAB PO SCH ×2 (08:32→21:20)
[2022-02-21] MEDS: FLUCONAZOLE IN NACL,ISO-OSM 100 MG in SALINE 1 50ML.BAG IVPB SCH (08:58)
[2022-02-21 11:26] LABS: Glucose,Whole Blood 244 mg/dL (70-110)
[2022-02-21] MEDS: BUDESONIDE 0.5 MG/2 ML NEBU INHALATION SCH ×2 (11:34→19:44)
--- NOTE | 2022-02-21 13:51 | P.PN ---
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 Lifelong nonsmoker. the patient also has had previous history of recurrent UTIs, and she has a permanent Humphrey catheter in place at this point in time. she has had several hospitalizations in the past. I recently saw her in the office and she was quite stable. The patient came into the hospital becausse of altered mentation and some increased shortness of breath. the patient was seen in the ED and she was given a CAT scan of the brain that showed no acute abnormalities. her chest x-ray showed some myocardial megaly and small amount of fluid in the minor fissure and small or effusions. Otherwise other acute abnormalities have been noted. the patient's labs showed a white cell count of 7 with a hemoglobin of 10 and a platelet count of 231. Blood gases showed a pH of 7.42 with a pCO2 of 64 and pO2 113 and this was done and FiO2 of 35% I believe this was done while on the BiPAP. serum bicarb is 41 with a sodium level of 142 and a potassium level of 3.9. Glucose is 105. troponins of 0.04 and a calcium level is at 8.3. urinalysis has been abnorrmal with increased white cell count and the patient has a permanent Humphrey catheter in place due to chronic urinary retention. The is been doing bladder flushes on this patient which is reduced the frequency of UTIs. Marilee most recent UTI was related to Klebsiella pneumoniae on 12/25/2021. Prior to that the patient had other gram-negative infections including infections with Enterobacter. For now, the patient is on IV fluids. She is on a BiPAP at a pressure of 12/6 cm of water with an FiO2 of 35%. In terms of antibiotics, the patient was given IV Rocephin. On today's evaluation of 02/16/2022, the patient is feeling better. She has no new complaints. She spent the night on BiPAP and currently she is on oxygen at 4 L. No chest pain. No nausea or vomiting. She has gram-negative UTI for which is on IV Rocephin. Seems to more alert and awake compared to yesterday and less lethargic. 02/17/2022, the patient is in the intensive care unit, intubated on a mechanical ventilator. Events from yesterday were noted. The patient was essentially stable. She was being fed in the evening and she sustained a massive a spiration. Progressively she became worse and she became hypoxic and hypercapnic and altered and she was very much tachypnea respiratory rate was in the 40s. She was given a trial of BiPAP which she feels and subsequently admitted recommendations to intubate patient and bring her to the intensive care unit. She became also septic and hypotensive during the process. For now, the patient is intubated on a mechanical ventilator. She is currently in the intensive care unit on propofol running at 50 mcg/kg per minute. She is also on assist control mode of mechanical ventilation at the rate of 24 with a tidal volume of 400 and FiO2 of 80% with a PEEP of 15. Blood gases from this morning shows a pH of 7.49 with a pCO2 of 45 and pO2 of 103. This was not an FiO2 of 100% and currently her FiO2 is down to 80%. Meanwhile I reviewed the series of chest x-ray that was done pre-and post intubation. The most recent chest x-ray shows multilobar pneumonia worsened the left perihilar left upper and left lower lobe. ET tube is around 3 cm above the earnestine and it's adequately positioned. The patient does not have any significant air leaks. Since the patient became hypotensive, she was given IV fluids and she received a total of 2 L normal saline bolus and currently her IV fluids running at the rate of 50 mL an hour. Pressors have also been added and the patient is currently on norepinephrine at 0.04 mcg/kg per minute. Her white cell count is at 15 with a hemoglobin of 11.3. BUN is at 13 with a creatinine of 1.1 and sodium is at 135. The patient was also given IV Zosyn covering for aspiration pneumonia. Note that her origin hospitalization was for a gram-negative UTI secondary to Enterobacter and Klebsiella and both of these microorganisms are sensitive to Zosyn. As such, the patient has been On single agent Zosyn. The patient is on Lovenox for DVT prophylaxis. The patient is also on NovoLog sliding scale coverage. Blood sugars are in the 200s range at this point in time. Patient was reevaluated on 02/18/22, patient remains in the ICU, intubated and mechanically ventilated. She is on assist control rate of 16 per volume 375 FiO2 40% PEEP of 15. However after evaluating the patient, I changed her ventilator settings to FiO2 of 45%, PEEP down to 12, respiration down to 12. And tidal volume was increased to 400. Patient had an ABG earlier today showed a pO2 of 114 pCO2 58 pH of 7.40 and looking at the bicarb on her initial presentation, it was relatively high, I believe the patient may have some underlying hypercapnia, and her pCO2 is likely in the high 50s normally. Patient is on propofol at 50 mcg/kg/m, she went off norepinephrine earlier this morning, she has IV fluid at 50 mL per hour in the form of 0.9 normal saline. She will be started on tube feeding today. Patient remains on Zosyn and vancomycin, she continues to have bilateral infiltrates consistent with aspiration pneumonia. WBC count today is 13.3 hemoglobin is 9.2. Basic metabol ic profile is normal bicarb is 34.. Profile is normal. Blood sugar is 247. Urine cultures are positive for Enterobacter cloacae and Klebsiella pneumoniae and these cultures are from 02/14/22. Reevaluated today on 02/19/22, patient remains in the ICU, remains intubated and mechanically ventilated. She is on assist control of 12 tidal volume 400 FiO2 40% and PEEP of 5 ABG showed a pO2 of 91 pCO2 61 pH of 7.41. Patient is not requiring any pressors. Patient failed the weaning yesterday, she went off sedation, however she became tachypneic, and did not follow any commands or instructions. Had to be placed back on sedation and continue mechanical ventilation. Today I plan to do the same and hold sedation and assessment of status at least today. She is still on propofol at 40 mcg/kg/m IV fluid at KVO vital HPI at 30 mL per hour. Chest x-ray continues show bilateral infiltrates. Patient will remain on antibiotics however I will discontinue vancomycin. No ventilator changes were made today. Patient remains on Zosyn but off vancomycin today. Remains on Lasix at 40 mg IV push daily. Remains on Joshua dilators and on GI and DVT prophylaxis. Reevaluated today on 02/20/22, remains intubated and mechanically ventilated. He is on assist control rate of 12 tidal volume 400 FiO2 40% PEEP of 12. I cut down her PEEP down to 8. ABG showed a pO2 of 107 pCO2 61 pH of 7.43. Patient remains on propofol presently at 30 mcg/kg/m, IV fluid at KVO, Zosyn for presumptive aspiration pneumonia. Remains on vital HPI 39 mL per hour. Patient did have sedation interruption yesterday, however still could not follow any instructions, opens eyes but does not follow any instructions. Chest x-ray continues show bilateral infiltrates consistent with aspiration pneumonia. Labs today showed WBC count of 7.2 hemoglobin 8.9. Basic metabolic profile is normal, renal profile is normal. Bicarb is 38 indicative of chronic hypercapnia and metabolic compensation Reevaluated today on 02/21/22, patient remains intubated and mechanically ventilated. Not much of a change in the last 24 hours, patient could not stay off sedation to long as she became tachycardic, tachypneic, and this was done y esterday. Had to be placed back on propofol obviously the patient could be she is on assist control rate of 12 tidal volume 400 FiO2 40% PEEP of 8. ABG showed a pO2 of 93 pCO2 60 pH of 7.44. Patient is on propofol at 30 mcg/kg/m, also on normal saline at 20 mL per hour. Her chest x-ray is showing slight improvement. Nonetheless, the patient, and today I recommended surgical consultation with general surgery for possible tracheostomy and PEG tube placement. Propofol is presently 50 mg/m. I cut it down to 20 mcg/kg/m. Feeding [place], the patient is on vital HPI 39 mL per hour. Patient remains empirically on antibiotics for presumptive aspiration pneumonia. Again her chest x-ray is showing slight improvement, but not back to normal Objective - Vital Signs Vital signs: Vital Signs Temp 98.3 F 02/21/22 12:00 Pulse 88 02/21/22 13:00 Resp 9 L 02/21/22 13:00 BP 127/55 02/19/22 04:00 Pulse Ox 96 02/21/22 13:00 FiO2 40 02/21/22 12:00 Intake & Output 02/20/22 02/21/22 02/21/22 18:59 06:59 18:59 Intake Total 9483.841 6868.523 626.489 Output Total 3100 685 710 Balance -1843.353 328.523 -83.511 Weight 114.8 kg Intake: IV 476 276 261 Piperacillin-Tazobactam 3 200 100 .375 gm In Sodium Chloride 0.9% 100 ml @ 25 mls/hr IVPB Q8HR [facility] Rx# :[id number] Sodium Chloride 0.9% 1, 240 240 140 000 ml @ 10 mls/hr IV . Q24H [facility] Rx#:[id number] pressure bag 36 36 21 Intake, IV Titration 261.647 179.523 248.489 Amount Fluconazole in NaCl,Iso- 50 Osm 100 mg In Saline 1 50ml.bag @ 50 mls/hr IVPB DAILY [facility] Rx#:[id number] propofoL 1,000 mg In 261.647 179.523 198.489 Empty Bag 1 bag @ 5 MCG/ KG/MIN 3.27 mls/hr IV . Q24H [facility] Rx#:[id number] Tube Feeding 429 468 117 Other 90 90 Output: Urine 3100 685 710 Other: Voiding Method Indwelling Catheter Indwelling Catheter Indwelling Catheter ABP, PAP, CO, CI - Last Documented Arterial Blood Pressure 122/60 - Exam GENERAL EXAM: Revealed a 66-year-old female, intubated, in no distress. HEAD: Normocephalic. Endotracheal tube and orogastric tube are intact. EYES: Unremarkable. NOSE: Unremarkable, intact orogastric tube.. THROAT: No erythema or exudates. NECK: No neck masses no JVD no stridor. Patient has short obese neck. CHEST: Symmetrical chest expansion noted chest wall tenderness. LUNGS: Symmetrical chest expansion, rhonchi noted bilaterally CVS: Normal S1 and S2, no S3 gallop, no murmur. ABDOMEN: Obese soft nontender no megaly no rebound no guarding. Positive bowel sounds. SKIN: No rashes CENTRAL NERVOUS SYSTEM: Sedated, could not assess EXTREMITIES: No clubbing edema or cyanosis. - Labs CBC & Chem 7: 02/21/22 04:23 02/21/22 04:23 Labs: Abnormal Lab Results - Last 24 Hours (Table) 02/20/22 02/20/22 02/21/22 Range/Units 17:10 23:40 04:23 RBC 3.11 L (3.80-5.40) m/uL Hgb 9.1 L (11.4-16.0) gm/dL Hct 30.3 L (34.0-46.0) % MCHC 30.2 L (31.0-37.0) g/dL Lymphocytes # 0.6 L (1.0-4.8) k/uL ABG pCO2 (35-45) mmHg ABG HCO3 (21-25) mmol/L ABG Total CO2 (19-24) mmol/L ABG O2 Saturation (94-97) % Carbon Dioxide (22-30) mmol/L BUN (7-17) mg/dL Glucose (74-99) mg/dL POC Glucose (mg/dL) 255 H 264 H (70-110) mg/dL Total Protein (6.3-8.2) g/dL Albumin (3.5-5.0) g/dL 02/21/22 02/21/22 02/21/22 Range/Units 04:23 06:15 06:35 RBC (3.80-5.40) m/uL Hgb (11.4-16.0) gm/dL Hct (34.0-46.0) % MCHC (31.0-37.0) g/dL Lymphocytes # (1.0-4.8) k/uL ABG pCO2 60 H (35-45) mmHg ABG HCO3 41 H* (21-25) mmol/L ABG Total CO2 43 H (19-24) mmol/L ABG O2 Saturation 98.1 H (94-97) % Carbon Dioxide 41 H* (22-30) mmol/L BUN 20 H (7-17) mg/dL Glucose 245 H (74-99) mg/dL POC Glucose (mg/dL) 239 H (70-110) mg/dL Total Protein 5.8 L (6.3-8.2) g/dL Albumin 2.8 L (3.5-5.0) g/dL 02/21/22 Range/Units 11:25 RBC (3.80-5.40) m/uL Hgb (11.4-16.0) gm/dL Hct (34.0-46.0) % MCHC (31.0-37.0) g/dL Lymphocytes # (1.0-4.8) k/uL ABG pCO2 (35-45) mmHg ABG HCO3 (21-25) mmol/L ABG Total CO2 (19-24) mmol/L ABG O2 Saturation (94-97) % Carbon Dioxide (22-30) mmol/L BUN (7-17) mg/dL Glucose (74-99) mg/dL POC Glucose (mg/dL) 244 H (70-110) mg/dL Total Protein (6.3-8.2) g/dL Albumin (3.5-5.0) g/dL Microbiology - Last 24 Hours (Table) 02/14/22 18:29 Blood Culture - Final Blood No Growth after 144 hours 02/14/22 18:17 Blood Culture - Final Blood No Growth after 144 hours Assessment and Plan Assessment: Impression: Acute hypoxic respiratory failure secondary to aspiration pneumonia Acute urinary tract infection secondary Enterobacter cloacae and Klebsiella pneumoniae Acute toxic metabolic encephalopathy secondary to sepsis and aspiration pneumonia Hypotension secondary to sepsis, and suspect septic shock since the patient required low-dose pressors. Chronic diastolic congestive heart failure History of aortic stenosis, being considered for the aVR. Olivopontocerebellar demyelination Suspect obesity hypoventilation syndrome Chronic urinary incontinence and previous chronic indwelling Humphrey catheter Type 2 diabetes. Suspect obstructive sleep apnea syndrome, on CPAP. Suspect chronic hypercapnic respiratory failure secondary to obstructive sleep apnea and obesity/hypoventilation syndrome History of sarcoidosis. Medical debility, patient is on electric wheelchair. Recommendation: Continue ventilatory support. Patient is not ready for weaning. Daily interruption of sedation and assessment of mental status as well as potentially checking weaning parameters. Continue nutritional support. Patient is on enteral feeding. Continue Zosyn for aspiration pneumonia. Continue nutritional support./Enteral feeding. Continue GI and DVT prophylaxis. Initiated a surgical consultation for possible tracheostomy and PEG tube placement either later this week or next week. Patient is critically ill, critical care time is over 30 minutes Prognosis remains extremely poor and guarded. Time with Patient: Greater than 30
--- NOTE | 2022-02-21 14:37 | P.GSCN ---
History of Present Illness Consult date: 02/21/22 History of present illness: CHIEF COMPLAINT: Shortness of breath and Altered mental status Reason for consult tracheostomy and PEG tube placement HISTORY OF PRESENT ILLNESS: This is a 66-year-old female who presented with shortness of breath and altered mental status. Patient has a history of oxygen and respiratory failure, COPD, CHF, olivopontinecerebellar degeneration with muscle weakness and is wheelchair dependent. Patient had worsening respiratory status and required to be intubated on 02/16/2022 after aspirating. She also has evidence of a UTI. Patient has remained on mechanical ventilation. She could not stay off the sedation she had became tachycardic and tachypneic and had to be placed back on propofol. Surgical service has been consult for tra cheostomy and PEG tube placement. Patient seen with Dr. odonnell PAST MEDICAL HISTORY: Chronic diastolic CHF, aortic stenosis being considered for AVR, olivopontocerebellar demyelination, suspected obesity hypoventilation syndrome, type 2 diabetes mellitus, obstructive apnea, sarcoidosis PAST SURGICAL HISTORY: Sigmoid volvulus with bowel resection, tubal ligation MEDICATIONS: See list. ALLERGIES: See list. SOCIAL HISTORY: No illicit drug use. REVIEW OF SYSTEMS: Unable to obtain. Patient intubated and sedated PHYSICAL EXAM: VITAL SIGNS: Reviewed GENERAL: no acute distress. ABDOMEN: Soft. Nondistended. NEUROLOGIC: Intubated and sedated LABORATORY DATA: WBC is 5.3 and she'll be 9.1 platelets 240 Sodium 142 potassium 3.7 creatinine 0.74 Glucose 244 albumin 2.8 IMAGING: Chest x-ray persistent bilateral pulmonary patchy opacities, grossly stable Echo normal EF. Doppler that appears to be severe aortic stenosis. ASSESSMENT: 1. Acute hypoxic respiratory failure secondary to aspiration pneumonia requiring mechanical ventilation 2. Severe protein calorie malnutrition 3. Sepsis PLAN: -Patient scheduled for tracheostomy and PEG tube placement tomorrow, 02/22/[address] Odonnell -Hold morning dose of Lovenox -Hold tube feedings after midnight Thank you for this consultation Physician Apprentice Pattern Maker note has been reviewed by physician. Signing provider agrees with the documented findings, assessment, and plan of care. Past Medical History Past Medical History: Asthma, Diabetes Mellitus, GI Bleed, Hyperlipidemia, Hypertension, Memory Impairment, Neurologic Disorder, Renal Disease, Respiratory Disorder, Sleep Apnea/CPAP/BIPAP Additional Past Medical History / Comment(s): Chronic respiratory failure with home oxygen use at 3L/NC ATC, morbid obesity, olivopontinecerebellar degenerati on/ affects R lung down to R leg with weakness,wheel chair depenedent, IDDM type II, neuropathy R leg, sarcoidosis/lungs, bronchitis, aortic stenosis/murmur, past chronic constipation, colostomy, occasional incontinence of stool, lower GI bleed, chronic urinary incontinence/neurogenic bladder/chronic Humphrey/frequent urinary tract infections/sepsis, anemia, gait dysfunction-pt is lifted to electric w/c, obstructive sleep apnea with Cpap use, chronic hydronephrosis of the kidneys, colostomy History of Any Multi-Drug Resistant Organisms: C-DIFF, 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 MDRO Source:: c-diff, mrsa 2010 in blood Past Surgical History: Bowel Resection, Tubal Ligation Additional Past Surgical History / Comment(s): 2015 sigmoid volvulus with bowel resection/colostomy, EGD, colonoscopies, bronchoscopies x3, carpal tunnel release-laterallity unknown, D&C, Past Anesthesia/Blood Transfusion Reactions: No Reported Reaction Past Psychological History: Depression Smoking Status: Never smoker Past Alcohol Use History: None Reported Past Drug Use History: None Reported - Past Family History Father Family Medical History: Cancer Additional Family Medical History / Comment(s): from pancreatic cancer Mother Family Medical History: Congestive Heart Failure (CHF), Diabetes Mellitus, Dialysis Additional Family Medical History / Comment(s): from CHF Medications and Allergies Home Medications Medication Instructions Recorded Confirmed Type Aspirin 81 mg PO DAILY 11/10/15 02/14/22 History Atorvastatin Calcium [Lipitor] 20 mg PO DAILY 11/10/15 02/14/22 History Budesonide [Pulmicort] 0.5 mg INHALATION RT-BID 11/10/15 02/14/22 History Kennedy-3 Fatty Acids/Fish Oil [Fish 1 cap PO DAILY 11/10/15 02/14/22 History Oil 1,000 mg Softgel] Albuterol Nebulized [Ventolin 2.5 mg INHALATION RT-QID 11/11/15 02/14/22 History Nebulized] Oxybutynin Xl [Ditropan XL] 5 mg PO DAILY 11/11/15 02/14/22 History metFORMIN HCL [Glucophage] 1,000 mg PO BID 10/08/19 02/14/22 History Lactulose [Cephulac] 10 gm PO BID PRN 07/20/20 02/14/22 History Multivitamins, Thera [Multivitamin 1 tab PO DAILY 07/20/20 02/14/22 History (formulary)] Psyllium Husk (with Sugar) 1 tbsp PO DAILY 07/20/20 02/14/22 History [Metamucil Powder] Imipramine [Tofranil] 25 mg PO BID #0 07/22/20 02/14/22 Rx Magnesium Citrate 148 ml PO DAILY PRN 04/25/21 02/14/22 History PARoxetine [Paxil] 20 mg PO DAILY 04/25/21 02/14/22 History Cholecalciferol [Vitamin D3 (25 25 mcg PO DAILY 12/24/21 02/14/22 History Mcg = 1000 Iu)] Insulin Aspart [NovoLOG Flexpen] See Protocol SQ AC-TID 12/24/21 02/14/22 History Insulin Glargine,Hum.rec.anlog 50 unit SQ HS 12/24/21 02/14/22 History [Lantus Solostar Pen] L.acidoph,Paracasei, B.lactis 1 cap PO DAILY 12/24/21 02/14/22 History [Probiotic] Furosemide [Lasix] 20 mg PO DAILY #15 tab 12/27/21 02/14/22 Rx Allergies Allergy/AdvReac Type Severity Reaction Status Date / Time No Known Allergies Allergy Verified 02/14/22 15:41 Surgical - Exam Vital Signs Temp Pulse Resp BP Pulse Ox 98.7 F 93 22 117/76 96 02/14/22 13:20 02/14/22 13:20 02/14/22 13:20 02/14/22 13:20 02/14/22 13:20 Results - Labs 02/21/22 04:23 02/21/22 04:23 Abnormal Lab Results - Last 24 Hours (Table) 02/20/22 02/20/22 02/21/22 Range/Units 17:10 23:40 04:23 RBC 3.11 L (3.80-5.40) m/uL Hgb 9.1 L (11.4-16.0) gm/dL Hct 30.3 L (34.0-46.0) % MCHC 30.2 L (31.0-37.0) g/dL Lymphocytes # 0.6 L (1.0-4.8) k/uL ABG pCO2 (35-45) mmHg ABG HCO3 (21-25) mmol/L ABG Total CO2 (19-24) mmol/L ABG O2 Saturation (94-97) % Carbon Dioxide (22-30) mmol/L BUN (7-17) mg/dL Glucose (74-99) mg/dL POC Glucose (mg/dL) 255 H 264 H (70-110) mg/dL Total Protein (6.3-8.2) g/dL Albumin (3.5-5.0) g/dL 02/21/22 02/21/22 02/21/22 Range/Units 04:23 06:15 06:35 RBC (3.80-5.40) m/uL Hgb (11.4-16.0) gm/dL Hct (34.0-46.0) % MCHC (31.0-37.0) g/dL Lymphocytes # (1.0-4.8) k/uL ABG pCO2 60 H (35-45) mmHg ABG HCO3 41 H* (21-25) mmol/L ABG Total CO2 43 H (19-24) mmol/L ABG O2 Saturation 98.1 H (94-97) % Carbon Dioxide 41 H* (22-30) mmol/L BUN 20 H (7-17) mg/dL Glucose 245 H (74-99) mg/dL POC Glucose (mg/dL) 239 H (70-110) mg/dL Total Protein 5.8 L (6.3-8.2) g/dL Albumin 2.8 L (3.5-5.0) g/dL 02/21/22 Range/Units 11:25 RBC (3.80-5.40) m/uL Hgb (11.4-16.0) gm/dL Hct (34.0-46.0) % MCHC (31.0-37.0) g/dL Lymphocytes # (1.0-4.8) k/uL ABG pCO2 (35-45) mmHg ABG HCO3 (21-25) mmol/L ABG Total CO2 (19-24) mmol/L ABG O2 Saturation (94-97) % Carbon Dioxide (22-30) mmol/L BUN (7-17) mg/dL Glucose (74-99) mg/dL POC Glucose (mg/dL) 244 H (70-110) mg/dL Total Protein (6.3-8.2) g/dL Albumin (3.5-5.0) g/dL Microbiology - Last 24 Hours (Table) 02/14/22 18:29 Blood Culture - Final Blood No Growth after 144 hours 02/14/22 18:17 Blood Culture - Final Blood No Growth after 144 hours Diabetes panel 02/21/22 Range/Units 04:23 Sodium 142 (137-145) mmol/L Potassium 3.7 (3.5-5.1) mmol/L Chloride 99 (98-107) mmol/L Carbon Dioxide 41 H* (22-30) mmol/L BUN 20 H (7-17) mg/dL Creatinine 0.74 (0.52-1.04) mg/dL Glucose 245 H (74-99) mg/dL Calcium 8.4 (8.4-10.2) mg/dL AST 21 (14-36) U/L ALT 15 (4-34) U/L Alkaline Phosphatase 72 (38-126) U/L Total Protein 5.8 L (6.3-8.2) g/dL Albumin 2.8 L (3.5-5.0) g/dL Calcium panel 02/21/22 Range/Units 04:23 Calcium 8.4 (8.4-10.2) mg/dL Albumin 2.8 L (3.5-5.0) g/dL Pituitary panel 02/21/22 Range/Units 04:23 Sodium 142 (137-145) mmol/L Potassium 3.7 (3.5-5.1) mmol/L Chloride 99 (98-107) mmol/L Carbon Dioxide 41 H* (22-30) mmol/L BUN 20 H (7-17) mg/dL Creatinine 0.74 (0.52-1.04) mg/dL Glucose 245 H (74-99) mg/dL Calcium 8.4 (8.4-10.2) mg/dL Adrenal panel 02/21/22 Range/Units 04:23 Sodium 142 (137-145) mmol/L Potassium 3.7 (3.5-5.1) mmol/L Chloride 99 (98-107) mmol/L Carbon Dioxide 41 H* (22-30) mmol/L BUN 20 H (7-17) mg/dL Creatinine 0.74 (0.52-1.04) mg/dL Glucose 245 H (74-99) mg/dL Calcium 8.4 (8.4-10.2) mg/dL Total Bilirubin 0.2 (0.2-1.3) mg/dL AST 21 (14-36) U/L ALT 15 (4-34) U/L Alkaline Phosphatase 72 (38-126) U/L Total Protein 5.8 L (6.3-8.2) g/dL Albumin 2.8 L (3.5-5.0) g/dL
[2022-02-21 18:04] LABS: Glucose,Whole Blood 273 mg/dL (70-110)
[2022-02-21 21:13] LABS: Glucose,Whole Blood 297 mg/dL (70-110)
[2022-02-21] MEDS: INSULIN DETEMIR (LEVEMIR) 100 UNIT/ML SYR SQ SCH (21:21)
--- NOTE | 2022-02-21 21:52 | P.PN ---
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 Lifelong nonsmoker. the patient also has had previous history of recurrent UTIs, and she has a permanent Humphrey catheter in place at this point in time. she has had several hospitalizations in the past. I recently saw her in the office and she was quite stable. The patient came into the hospital becausse of altered mentation and some increased shortness of breath. the patient was seen in the ED and she was given a CAT scan of the brain that showed no acute abnormalities. her chest x-ray showed some myocardial megaly and small amount of fluid in the minor fissure and small or effusions. Otherwise other acute abnormalities have been noted. the patient's labs showed a white cell count of 7 with a hemoglobin of 10 and a platelet count of 231. Blood gases showed a pH of 7.42 with a pCO2 of 64 and pO2 113 and this was done and FiO2 of 35% I believe this was done while on the BiPAP. serum bicarb is 41 with a sodium level of 142 and a pot assium level of 3.9. Glucose is 105. troponins of 0.04 and a calcium level is at 8.3. urinalysis has been abnorrmal with increased white cell count and the patient has a permanent Humphrey catheter in place due to chronic urinary retention. The is been doing bladder flushes on this patient which is reduced the frequency of UTIs. Marilee most recent UTI was related to Klebsiella pneumoniae on 12/25/2021. Prior to that the patient had other gram-negative infections including infections with Enterobacter. For now, the patient is on IV fluids. She is on a BiPAP at a pressure of 12/6 cm of water with an FiO2 of 35%. In terms of antibiotics, the patient was given IV Rocephin. On today's evaluation of 02/16/2022, the patient is feeling better. She has no new complaints. She spent the night on BiPAP and currently she is on oxygen at 4 L. No chest pain. No nausea or vomiting. She has gram-negative UTI for which is on IV Rocephin. Seems to more alert and awake compared to yesterday and less lethargic. 02/17/2022, the patient is in the intensive care unit, intubated on a mechanical ventilator. Events from yesterday were noted. The patient was essentially stable. She was being fed in the evening and she sustained a massive aspiration. Progressively she became worse and she became hypoxic and hypercapnic and altered and she was very much tachypnea respiratory rate was in the 40s. She was given a trial of BiPAP which she feels and subsequently admitted recommendations to intubate patient and bring her to the intensive care unit. She became also septic and hypotensive during the process. For now, the patient is intubated on a mechanical ventilator. She is currently in the intensive care unit on propofol running at 50 mcg/kg per minute. She is also on assist control mode of mechanical ventilation at the rate of 24 with a tidal volume of 400 and FiO2 of 80% with a PEEP of 15. Blood gases from this morning shows a pH of 7.49 with a pCO2 of 45 and pO2 of 103. This was not an FiO2 of 100% and currently her FiO2 is down to 80%. Meanwhile I reviewed the series of chest x-ray that was done pre-and post intubation. The most recent chest x-ray shows multilobar pneumonia worsened the left perihilar left upper and left lower lobe. ET tube is around 3 cm above the earnestine and it's adequately positioned. The patient does not have any significant air leaks. Since the patient became hypotensive, she was given IV fluids and she received a total of 2 L normal saline bolus and currently her IV fluids running at the rate of 50 mL an hour. Pressors have also been added and the patient is currently on norepinephrine at 0.04 mcg/kg per minute. Her white cell count is at 15 with a hemoglobin of 11.3. BUN is at 13 with a creatinine of 1.1 and sodium is at 135. The patient was also given IV Zosyn covering for aspiration pneumonia. Note that her origin hospitalization was for a gram-negative UTI secondary to Enterobacter and Klebsiella and both of these microorganisms are sensitive to Zosyn. As such, the patient has been On single agent Zosyn. The patient is on Lovenox for DVT prophylaxis. The patient is also on NovoLog sliding scale coverage. Blood sugars are in the 200s range at this point in time. Patient was reevaluated on 02/17/22, patient remains in the ICU, intubated and mechanically ventilated. She is on assist control rate of 16 per volume 375 FiO2 40% PEEP of 15. However after evaluating the patient, I changed her ventilator settings to FiO2 of 45%, PEEP down to 12, respiration down to 12. And tidal volume was increased to 400. Patient had an ABG earlier today showed a pO2 of 114 pCO2 58 pH of 7.40 and looking at the bicarb on her initial presentation, it was relatively high, I believe the patient may have some unde rlying hypercapnia, and her pCO2 is likely in the high 50s normally. Patient is on propofol at 50 mcg/kg/m, she went off norepinephrine earlier this morning, she has IV fluid at 50 mL per hour in the form of 0.9 normal saline. She will be started on tube feeding today. Patient remains on Zosyn and vancomycin, she continues to have bilateral infiltrates consistent with aspiration pneumonia. WBC count today is 13.3 hemoglobin is 9.2. Basic metabolic profile is normal bicarb is 34.. Profile is normal. Blood sugar is 247. Urine cultures are positive for Enterobacter cloacae and Klebsiella pneumoniae and these cultures are from 02/14/22. 02/18/2022 Patient is seen in follow-up this morning continues to be on mechanical vent with an FiO2 of 45% and PEEP is 12. Patient continues on sedation of propofol and also continues with IV Zosyn and vancomycin for aspiration pneumonia. Chest xray shows bilateral patchy densities and left pleural effusion. Patient is off pressor support and some adjustments to the vent being made. Started enteral nutrition and blood sugars remain mildly elevated. Recommend to continue with gentle IV fluids and accuchecks and sliding scale achs. long acting as well. Will adjust accordingly. WBC trending down and patient is afebrile. 02/19/2022 Patient is seen this morning continues to be in the ICU on mechanical vent and FiO2 is 40% with a PEEP of 12. Patient continues on sedation and also maintained on 40 mg of IV Lasix daily along with IV Zosyn and will continue. Vancomycin discontinued. Blood sugars mildly elevated and will increase long-acting insulin and continue with sliding scale and Accu-Cheks before meals and at bedtime and as needed. Chest x-ray today shows unchanged cardiomediastinal silhouette with persistent bilateral pulmonary patchy opacification is slightly improved in the right upper lung zone an NG tube is noted. WBC is trending down at 10.0 hemoglobin is stable at 8.4. As mentioned previously blood sugars are elevated and will increase insulins. Patient is currently afebrile. Sputum cultures pending at this time and blood cultures remain negative. Urine culture showing Enterobacter Cloacae along with Klebsiella pneumonia. 02/20/2022 Patient is evaluated today during a sedation holiday and does not tolerate very well. Patient to continue on Propofol with ongoing assessment for weaning parameters. Patient is not on pressor support. Patient continues on vent with FI02 of 40%. Patient is also on IV antibiotics and sputum culture showing chapin albicans and will add diflucan. Recommend follow up on chest xray and repeat am labs ordered. Follow up on magnesium and replace per protocol. Will increase long acting insulin and recommend continued monitoring. Patient is afebrile. 02/21/2022 Patient is seen this morning in the ICU and continues to undergo sedation holidays and will likely need possible peg and trach placement. General surgery was consulted. Patient remains on an FI02 of 40% and peep is 8. Blood sugars remain elevated and have increased long acting up to 25 units and will continue sliding scale. Patient is afebrile. Sputum culture showing candid albicans and have added diflucan. Patient also remains on IV zosyn and will continue. Overall prognosis remains guarded. Review of systems: Unable to obtain as patient is currently intubated Active Medications Acetaminophen (Acetaminophen Tab 325 Mg Tab) 650 mg PO Q4HR PRN PRN Reason: Fever and/or Mild Pain Last Admin: 02/17/22 14:56 Dose: 650 mg Acetaminophen (Acetaminophen Suppository 650 Mg Supp) 650 mg RECTAL Q4HR PRN PRN Reason: Fever and/ or Pain Last Admin: 02/17/22 04:18 Dose: 650 mg Albuterol Sulfate (Albuterol Nebulized 2.5 Mg/3 Ml) 2.5 mg INHALATION RT-QID [facility] Last Admin: 02/21/22 19:11 Dose: 2.5 mg Aspirin (Aspirin 81 Mg) 81 mg PO DAILY [facility] Last Admin: 02/21/22 08:32 Dose: 81 mg Atorvastatin Calcium (Atorvastatin 20 Mg Tab) 20 mg PO DAILY [facility] Last Admin: 02/21/22 08:32 Dose: 20 mg Budesonide (Budesonide 0.5 Mg/2 Ml Nebu) 0.5 mg INHALATION RT-BID [facility] Last Admin: 02/21/22 19:44 Dose: 0.5 mg Chlorhexidine Gluconate (Chlorhexidine Gluconate 15 Ml Cup) 15 ml MUCOUS MEM BID [facility] Last Admin: 02/21/22 21:20 Dose: 15 ml Enoxaparin Sodium (Enoxaparin 40 Mg/0.4 Ml Syringe) 40 mg SQ DAILY [facility] Last Admin: 02/21/22 08:31 Dose: 40 mg Furosemide (Furosemide 10 Mg/Ml 4 Ml Vial) 40 mg IV DAILY [facility] Last Admin: 02/21/22 08:32 Dose: 40 mg Piperacillin Sod/Tazobactam (Sod 3.375 gm/ Sodium Chloride) 100 mls @ 25 mls/hr IVPB Q8HR [facility]; Protocol Last Admin: 02/21/22 15:15 Dose: 25 mls/hr Propofol 1,000 mg/ IV Solution 100 mls @ 3.27 mls/hr IV .Q24H [facility]; Protocol Last Admin: 02/21/22 13:22 Dose: 30 mcg/kg/min, 19.62 mls/hr Norepinephrine Bitartrate 4 mg (/ Sodium Chloride) 254 mls @ 20.765 mls/hr IV .[id number] [facility]; Protocol Last Admin: 02/21/22 15:07 Dose: Not Given Sodium Chloride (Saline 0.9%) 1,000 mls @ 10 mls/hr IV .Q24H [facility] Last Admin: 02/21/22 03:16 Dose: 10 mls/hr Fluconazole/Sodium Chloride (100 mg/ IV Solution) 50 mls @ 50 mls/hr IVPB DAILY [facility] Last Admin: 02/21/22 08:58 Dose: 50 mls/hr Imipramine HCl (Imipramine 25 Mg Tab) 25 mg PO BID [facility] Last Admin: 02/21/22 21:20 Dose: 25 mg Insulin Aspart (Insulin Aspart (Novolog) 100 Unit/Ml Vial) 0 unit SQ Q6H [facility]; Protocol Last Admin: 02/21/22 18:30 Dose: 6 unit Insulin Detemir (Insulin Detemir (Levemir) 100 Unit/Ml Syr) 25 unit SQ HS [facility] Last Admin: 02/21/22 21:21 Dose: 25 unit Miscellaneous Information (Potassium Replacement Protocol 1 Each Misc) 1 each MISCELLANE DAILY PRN; Protocol PRN Reason: Per Protocol Naloxone HCl (Naloxone 0.4 Mg/Ml 1 Ml Vial) 0.2 mg IV Q2M PRN PRN Reason: Opioid Reversal Physical exam: GENERAL EXAM: a 66-year-old female, morbidly obese, intubated and sedated on propofol with a vent setting of 40% FI02 and peep is 8 HEENT: Normocephalic. PERRLA, Endotracheal tube and orogastric tube are intact. nares are patent NECK: No masses, no JVD. Short obese neck LUNGS: Symmetrical chest expansion, diminished breath sounds bilaterally with some crackles at the bases. No rhonchi no wheezes. CARDIO: S1 and S2 muffled with no audible murmur, regular rhythm. ABDOMEN: soft, obese, non-distended, normal bowel sounds, no guarding or rigidity. SKIN: No rashes Neurological: Cannot assess completely, patient is sedated, on propofol. EXTREMITIES: No clubbing edema or cyanosis. generalized edema noted throughout Assessment: Acute hypoxic respiratory failure secondary to aspiration pneumonia Acute urinary tract infection secondary Enterobacter cloacae and Klebsiella pneumoniae Acute toxic metabolic encephalopathy secondary to sepsis and aspiration pneumonia Hypotension secondary to sepsis, with possible septic shock as patient was initially on pressor support, off pressors Chronic diastolic congestive heart failure History of Olivopontocerebellar demyelination Possible obesity hypoventilation syndrome diabetes mellitus, type 2 uncontrolled with hyperglycemia. obstructive sleep apnea syndrome, on CPAP. Possible chronic hypercapnic respiratory failure secondary to obstructive sleep apnea and obesity/hypoventilation syndrome History of sarcoidosis. GI prophylaxis DVT prophylaxis Full code Plan: Recommend to continue with close monitoring in the ICU with sedation holidays and weaning parameters being assessed. Patient remains on mechanical vent at 40% FiO2 and peep is 8. Not ready for weaning and extubation at this time, possible consult to surgery for peg and trach placement. Recommend to continue with accuchecks achs and have increased long acting insulin now up to 25 units at hs for the elevated blood sugars Continue antibiotics in the form of Zosyn and sputum culture showing chapin albicans and have added diflucan REcommend to continue with IV lasix daily Recommend follow up chest xray and labs in the am, follow up on low magnesium and replace per protocol Overall prognosis is poor and extremely guarded at this time. The impression and plan of care has been dictated by Ayleen Cheng, Nurse Practitioner as directed. MD Laisha I have performed a history and examination and MDM of this patient, discussed the same with the dictator, and agree with the dictator's assessment and plan as written ,documented as a scribe. Based on total visit time, I have performed more than 50% of the visit. Objective - Vital Signs Vital signs: Vital Signs Temp 99.2 F 02/21/22 20:00 Pulse 87 02/21/22 21:00 Resp 13 02/21/22 21:00 BP 127/55 02/19/22 04:00 Pulse Ox 97 02/21/22 21:00 FiO2 40 02/21/22 20:00 Intake & Output 02/21/22 02/21/22 02/22/22 06:59 18:59 06:59 Intake Total 8068.529 8134.489 216 Output Total 685 980 150 Balance 328.523 86.489 66 Weight 114.8 kg Intake: IV 276 476 69 Piperacillin-Tazobactam 3 200 .375 gm In Sodium Chloride 0.9% 100 ml @ 25 mls/hr IVPB Q8HR [facility] Rx# :[id number] Sodium Chloride 0.9% 1, 240 240 60 000 ml @ 10 mls/hr IV . Q24H [facility] Rx#:[id number] pressure bag 36 36 9 Intake, IV Titration 179.523 248.489 Amount Fluconazole in NaCl,Iso- 50 Osm 100 mg In Saline 1 50ml.bag @ 50 mls/hr IVPB DAILY [facility] Rx#:[id number] propofoL 1,000 mg In 179.523 198.489 Empty Bag 1 bag @ 5 MCG/ KG/MIN 3.27 mls/hr IV . Q24H [facility] Rx#:[id number] Tube Feeding 468 312 117 Other 90 30 30 Output: Urine 685 980 150 Other: Voiding Method Indwelling Catheter Indwelling Catheter ABP, PAP, CO, CI - Last Documented Arterial Blood Pressure 102/50 - Labs CBC & Chem 7: 02/21/22 04:23 02/21/22 04:23 Labs: Abnormal Lab Results - Last 24 Hours (Table) 02/20/22 02/21/22 02/21/22 Range/Units 23:40 04:23 04:23 RBC 3.11 L (3.80-5.40) m/uL Hgb 9.1 L (11.4-16.0) gm/dL Hct 30.3 L (34.0-46.0) % MCHC 30.2 L (31.0-37.0) g/dL Lymphocytes # 0.6 L (1.0-4.8) k/uL ABG pCO2 (35-45) mmHg ABG HCO3 (21-25) mmol/L ABG Total CO2 (19-24) mmol/L ABG O2 Saturation (94-97) % Carbon Dioxide 41 H* (22-30) mmol/L BUN 20 H (7-17) mg/dL Glucose 245 H (74-99) mg/dL POC Glucose (mg/dL) 264 H (70-110) mg/dL Total Protein 5.8 L (6.3-8.2) g/dL Albumin 2.8 L (3.5-5.0) g/dL 02/21/22 02/21/22 02/21/22 Range/Units 06:15 06:35 11:25 RBC (3.80-5.40) m/uL Hgb (11.4-16.0) gm/dL Hct (34.0-46.0) % MCHC (31.0-37.0) g/dL Lymphocytes # (1.0-4.8) k/uL ABG pCO2 60 H (35-45) mmHg ABG HCO3 41 H* (21-25) mmol/L ABG Total CO2 43 H (19-24) mmol/L ABG O2 Saturation 98.1 H (94-97) % Carbon Dioxide (22-30) mmol/L BUN (7-17) mg/dL Glucose (74-99) mg/dL POC Glucose (mg/dL) 239 H 244 H (70-110) mg/dL Total Protein (6.3-8.2) g/dL Albumin (3.5-5.0) g/dL 02/21/22 02/21/22 Range/Units 18:03 21:12 RBC (3.80-5.40) m/uL Hgb (11.4-16.0) gm/dL Hct (34.0-46.0) % MCHC (31.0-37.0) g/dL Lymphocytes # (1.0-4.8) k/uL ABG pCO2 (35-45) mmHg ABG HCO3 (21-25) mmol/L ABG Total CO2 (19-24) mmol/L ABG O2 Saturation (94-97) % Carbon Dioxide (22-30) mmol/L BUN (7-17) mg/dL Glucose (74-99) mg/dL POC Glucose (mg/dL) 273 H 297 H (70-110) mg/dL Total Protein (6.3-8.2) g/dL Albumin (3.5-5.0) g/dL Microbiology - Last 24 Hours (Table) 02/14/22 18:29 Blood Culture - Final Blood No Growth after 144 hours 02/14/22 18:17 Blood Culture - Final Blood No Growth after 144 hours
[2022-02-21 23:15] LABS: Glucose,Whole Blood 274 mg/dL (70-110)
[2022-02-22 04:04] LABS: Basophils # (A) 0.1 k/uL (0-0.2); Basophils % (A) 1 %; Eosinophils # (A) 0.3 k/uL (0-0.7); Eosinophils % (A) 5 %; HGB 9.4 gm/dL (11.4-16.0); Hypochromasia Marked; Lymphocytes # (A) 0.7 k/uL (1.0-4.8); Lymphocytes % (A) 11 %; MCH 28.6 pg (25.0-35.0); MCHC 29.4 g/dL (31.0-37.0); MCV 97.1 fL (80.0-100.0); Mean Platelet Volume 8.8; Monocytes # (A) 0.3 k/uL (0-1.0); Monocytes % (A) 5 %; Neutrophils # (A) 4.9 k/uL (1.3-7.7); Neutrophils % (A) 77 %; Platelet Count 250 k/uL (150-450); RBC 3.29 m/uL (3.80-5.40); RDW 14.9 % (11.5-15.5); WBC 6.4 k/uL (3.8-10.6)
[2022-02-22 04:11] LABS: INR 0.9 (<1.2); Partial Thromboplastin Time 25.7 sec (22.0-30.0); Prothrombin Time 9.9 sec (9.0-12.0)
[2022-02-22 04:21] LABS: African American GFR (CKD) >90 (>60 ml/min/1.73 sqM); Anion Gap 2 mmol/L; Blood Urea Nitrogen 23 mg/dL (7-17); Calcium 8.5 mg/dL (8.4-10.2); Carbon Dioxide 40 mmol/L (22-30); Chloride 99 mmol/L (98-107); Glucose 202 mg/dL (74-99); Non-African American GFR(CKD) 87 (>60 ml/min/1.73 sqM); Potassium 3.7 mmol/L (3.5-5.1); Sodium 141 mmol/L (137-145)
[2022-02-22 05:32] LABS: ABG Base Excess 16.3 mmol/L; ABG Oxygen Saturation 98.3 % (94-97); ABG PCO2 59 mmHg (35-45); ABG PH 7.44 (7.35-7.45); ABG PO2 99 mmHg (83-108); ABG TCO2 42 mmol/L (19-24); Allen Test Performed? Yes
[2022-02-22 05:35] LABS: ABG HCO3 40 mmol/L (21-25)
[2022-02-22 05:38] LABS: Glucose,Whole Blood 165 mg/dL (70-110)
[2022-02-22 06:08] LABS: Glucose,Whole Blood 157 mg/dL (70-110)
[2022-02-22] MEDS: INSULIN ASPART (NovoLOG) 100 UNIT/ML VIAL SQ SCH ×8 (06:14→23:39)
[2022-02-22] MEDS: POTASSIUM CHLORIDE 10 MEQ in WATER FOR INJECTION 1 100ML.BAG IVPB SCH ×2 (06:14→08:24)
[2022-02-22] MEDS: BUDESONIDE 0.5 MG/2 ML NEBU INHALATION SCH ×2 (07:55→19:46)
[2022-02-22] MEDS: ALBUTEROL NEBULIZED 2.5 MG/3 ML INHALATION SCH ×4 (07:55→19:45)
[2022-02-22] MEDS: NOREPINEPHRINE 4 MG in SODIUM CHLORIDE 0.9% 250 ML IV SCH ×2 (08:15→15:17)
[2022-02-22] MEDS: SODIUM CHLORIDE 0.9% 1,000 ML IV SCH (08:15)
[2022-02-22] MEDS: CHLORHEXIDINE GLUCONATE 15 ML CUP MUCOUS MEM SCH ×2 (08:23→20:33)
[2022-02-22] MEDS: FUROSEMIDE 10 MG/ML 4 ML VIAL IV SCH (08:23)
[2022-02-22] MEDS: PIPERACILLIN-TAZOBACTAM 3.375 GM in SODIUM CHLORIDE 0.9% 100 ML IVPB SCH ×3 (08:23→23:39)
--- NOTE | 2022-02-22 08:27 | XR ---
EXAMINATION TYPE: XR chest 1V portable DATE OF EXAM: 02/22/2022 Comparison: 02/21/2022 Clinical History: 66 year-old female tube placement Findings: ET tube tip just above the level of the medial clavicular heads. NG tube courses below the diaphragm. Heart is enlarged. Diffuse interstitial densities persist bilaterally. Persistent silhouetting of th e left hemidiaphragm. Impression: 1. Mild cardiomegaly with interstitial opacities suggesting mild interstitial pulmonary edema, simila r to prior exam. 2. Similar small left pleural effusion with adjacent atelectasis and/or consolidation.
[2022-02-22] MEDS: FLUCONAZOLE IN NACL,ISO-OSM 100 MG in SALINE 1 50ML.BAG IVPB SCH (10:25)
[2022-02-22] MEDS: ENOXAPARIN 40 MG/0.4 ML SYRINGE SQ SCH (10:26)
[2022-02-22 10:27] LABS: Glucose,Whole Blood 130 mg/dL (70-110)
[2022-02-22] MEDS: ASPIRIN 81 MG PO SCH (10:31)
[2022-02-22] MEDS: IMIPRAMINE 25 MG TAB PO SCH ×2 (10:31→20:34)
[2022-02-22] MEDS: ATORVASTATIN 20 MG TAB PO SCH (10:31)
[2022-02-22 11:09] LABS: ABG PCO2 57 mmHg (35-45); ABG PH 7.46 (7.35-7.45); ABG PO2 95 mmHg (83-108); ABG TCO2 42 mmol/L (19-24)
[2022-02-22 11:11] LABS: ABG HCO3 41 mmol/L (21-25); Allen Test Performed? NO
[2022-02-22 11:33] LABS: Glucose,Whole Blood 112 mg/dL (70-110)
[2022-02-22 11:42] VITALS: BMI 46.3
--- NOTE | 2022-02-22 12:11 | P.PN ---
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 Lifelong nonsmoker. the patient also has had previous history of recurrent UTIs, and she has a permanent Humphrey catheter in place at this point in time. she has had several hospitalizations in the past. I recently saw her in the office and she was quite stable. The patient came into the hospital becausse of altered mentation and some increased shortness of breath. the patient was seen in the ED and she was given a CAT scan of the brain that showed no acute abnormalities. her chest x-ray showed some myocardial megaly and small amount of fluid in the minor fissure and small or effusions. Otherwise other acute abnormalities have been noted. the patient's labs showed a white cell count of 7 with a hemoglobin of 10 and a platelet count of 231. Blood gases showed a pH of 7.42 with a pCO2 of 64 and pO2 113 and this was done and FiO2 of 35% I believe this was done while on the BiPAP. serum bicarb is 41 with a sodium level of 142 and a potassium level of 3.9. Glucose is 105. troponins of 0.04 and a calcium level is at 8.3. urinalysis has been abnorrmal with increased white cell count and the patient has a permanent Humphrey catheter in place due to chronic urinary retention. The is been doing bladder flushes on this patient which is reduced the frequency of UTIs. Marilee most recent UTI was related to Klebsiella pneumoniae on 12/25/2021. Prior to that the patient had other gram-negative infections including infections with Enterobacter. For now, the patient is on IV fluids. She is on a BiPAP at a pressure of 12/6 cm of water with an FiO2 of 35%. In terms of antibiotics, the patient was given IV Rocephin. On today's evaluation of 02/16/2022, the patient is feeling better. She has no new complaints. She spent the night on BiPAP and currently she is on oxygen at 4 L. No chest pain. No nausea or vomiting. She has gram-negative UTI for which is on IV Rocephin. Seems to more alert and awake compared to yesterday and less lethargic. 02/17/2022, the patient is in the intensive care unit, intubated on a mechanical ventilator. Events from yesterday were noted. The patient was essentially stable. She was being fed in the evening and she sustained a massive a spiration. Progressively she became worse and she became hypoxic and hypercapnic and altered and she was very much tachypnea respiratory rate was in the 40s. She was given a trial of BiPAP which she feels and subsequently admitted recommendations to intubate patient and bring her to the intensive care unit. She became also septic and hypotensive during the process. For now, the patient is intubated on a mechanical ventilator. She is currently in the intensive care unit on propofol running at 50 mcg/kg per minute. She is also on assist control mode of mechanical ventilation at the rate of 24 with a tidal volume of 400 and FiO2 of 80% with a PEEP of 15. Blood gases from this morning shows a pH of 7.49 with a pCO2 of 45 and pO2 of 103. This was not an FiO2 of 100% and currently her FiO2 is down to 80%. Meanwhile I reviewed the series of chest x-ray that was done pre-and post intubation. The most recent chest x-ray shows multilobar pneumonia worsened the left perihilar left upper and left lower lobe. ET tube is around 3 cm above the earnestine and it's adequately positioned. The patient does not have any significant air leaks. Since the patient became hypotensive, she was given IV fluids and she received a total of 2 L normal saline bolus and currently her IV fluids running at the rate of 50 mL an hour. Pressors have also been added and the patient is currently on norepinephrine at 0.04 mcg/kg per minute. Her white cell count is at 15 with a hemoglobin of 11.3. BUN is at 13 with a creatinine of 1.1 and sodium is at 135. The patient was also given IV Zosyn covering for aspiration pneumonia. Note that her origin hospitalization was for a gram-negative UTI secondary to Enterobacter and Klebsiella and both of these microorganisms are sensitive to Zosyn. As such, the patient has been On single agent Zosyn. The patient is on Lovenox for DVT prophylaxis. The patient is also on NovoLog sliding scale coverage. Blood sugars are in the 200s range at this point in time. Patient was reevaluated on 02/18/22, patient remains in the ICU, intubated and mechanically ventilated. She is on assist control rate of 16 per volume 375 FiO2 40% PEEP of 15. However after evaluating the patient, I changed her ventilator settings to FiO2 of 45%, PEEP down to 12, respiration down to 12. And tidal volume was increased to 400. Patient had an ABG earlier today showed a pO2 of 114 pCO2 58 pH of 7.40 and looking at the bicarb on her initial presentation, it was relatively high, I believe the patient may have some underlying hypercapnia, and her pCO2 is likely in the high 50s normally. Patient is on propofol at 50 mcg/kg/m, she went off norepinephrine earlier this morning, she has IV fluid at 50 mL per hour in the form of 0.9 normal saline. She will be started on tube feeding today. Patient remains on Zosyn and vancomycin, she continues to have bilateral infiltrates consistent with aspiration pneumonia. WBC count today is 13.3 hemoglobin is 9.2. Basic metabol ic profile is normal bicarb is 34.. Profile is normal. Blood sugar is 247. Urine cultures are positive for Enterobacter cloacae and Klebsiella pneumoniae and these cultures are from 02/14/22. Reevaluated today on 02/19/22, patient remains in the ICU, remains intubated and mechanically ventilated. She is on assist control of 12 tidal volume 400 FiO2 40% and PEEP of 5 ABG showed a pO2 of 91 pCO2 61 pH of 7.41. Patient is not requiring any pressors. Patient failed the weaning yesterday, she went off sedation, however she became tachypneic, and did not follow any commands or instructions. Had to be placed back on sedation and continue mechanical ventilation. Today I plan to do the same and hold sedation and assessment of status at least today. She is still on propofol at 40 mcg/kg/m IV fluid at KVO vital HPI at 30 mL per hour. Chest x-ray continues show bilateral infiltrates. Patient will remain on antibiotics however I will discontinue vancomycin. No ventilator changes were made today. Patient remains on Zosyn but off vancomycin today. Remains on Lasix at 40 mg IV push daily. Remains on Joshua dilators and on GI and DVT prophylaxis. Reevaluated today on 02/20/22, remains intubated and mechanically ventilated. He is on assist control rate of 12 tidal volume 400 FiO2 40% PEEP of 12. I cut down her PEEP down to 8. ABG showed a pO2 of 107 pCO2 61 pH of 7.43. Patient remains on propofol presently at 30 mcg/kg/m, IV fluid at KVO, Zosyn for presumptive aspiration pneumonia. Remains on vital HPI 39 mL per hour. Patient did have sedation interruption yesterday, however still could not follow any instructions, opens eyes but does not follow any instructions. Chest x-ray continues show bilateral infiltrates consistent with aspiration pneumonia. Labs today showed WBC count of 7.2 hemoglobin 8.9. Basic metabolic profile is normal, renal profile is normal. Bicarb is 38 indicative of chronic hypercapnia and metabolic compensation Reevaluated today on 02/21/22, patient remains intubated and mechanically ventilated. Not much of a change in the last 24 hours, patient could not stay off sedation to long as she became tachycardic, tachypneic, and this was done y esterday. Had to be placed back on propofol obviously the patient could be she is on assist control rate of 12 tidal volume 400 FiO2 40% PEEP of 8. ABG showed a pO2 of 93 pCO2 60 pH of 7.44. Patient is on propofol at 30 mcg/kg/m, also on normal saline at 20 mL per hour. Her chest x-ray is showing slight improvement. Nonetheless, the patient, and today I recommended surgical consultation with general surgery for possible tracheostomy and PEG tube placement. Propofol is presently 50 mg/m. I cut it down to 20 mcg/kg/m. Feeding [place], the patient is on vital HPI 39 mL per hour. Patient remains empirically on antibiotics for presumptive aspiration pneumonia. Again her chest x-ray is showing slight improvement, but not back to normal Reevaluated today on 02/22/2022, patient remains in the ICU, intubated and mechanically ventilated. She is on assist control rate of 12 tidal volume 400 FiO2 40% PEEP was 8 and I cut it down to 5. Patient had an ABG this morning showed a pO2 of 99 pCO2 59 pH of 7.44. Chest x-ray is showing improvement but not complete clearance of her pneumonia. Patient remains on Zosyn. Today the patient is off propofol from earlier this morning, and she seems to be very calm, she is awake, seems to be slow but generally weak, and she is able to follow instructions. Considering the improvement in her mental status today, I recommended that we hold on tracheostomy and PEG tube placement, patient will be given a trial of pressure support and CPAP. And based on that may decide further weaning of the pressure support, and possibly extubate to BiPAP if pos sible. In the meantime we'll continue to hold the tube feeding, continue to hold all sedations and all narcotics. And again hoping to cut down the pressure support to 10 or 8, and if she continues to tolerate this may consider x-raying the patient to BiPAP. ABG after 2 hours on pressure support and CPAP showed a pO2 of 95 pCO2 57 pH of 7.46. WBC count today is 6.4 hemoglobin is 9.4 basic metabolic profile is normal renal profile is normal Objective - Vital Signs Vital signs: Vital Signs Temp 98.4 F 02/22/22 08:00 Pulse 87 02/22/22 11:46 Resp 7 L 02/22/22 11:00 BP 127/55 02/19/22 04:00 Pulse Ox 94 L 02/22/22 11:00 FiO2 40 02/22/22 10:28 Intake & Output 02/21/22 02/22/22 02/22/22 18:59 06:59 18:59 Intake Total 1066.489 893 229 Output Total 980 765 855 Balance 86.489 128 -626 Weight 115 kg 115 kg Intake: IV 476 499 179 Piperacillin-Tazobactam 3 200 100 100 .375 gm In Sodium Chloride 0.9% 100 ml @ 25 mls/hr IVPB Q8HR [facility] Rx# :[id number] Potassium Chloride 10 meq 100 In Water For Injection 1 100ml.bag @ 100 mls/hr IVPB Q1H [facility] Rx#: [id number] Sodium Chloride 0.9% 1, 240 260 70 000 ml @ 10 mls/hr IV . Q24H [facility] Rx#:[id number] pressure bag 36 39 9 Intake, IV Titration 248.489 100 50 Amount Fluconazole in NaCl,Iso- 50 50 Osm 100 mg In Saline 1 50ml.bag @ 50 mls/hr IVPB DAILY [facility] Rx#:[id number] propofoL 1,000 mg In 198.489 100 Empty Bag 1 bag @ 5 MCG/ KG/MIN 3.27 mls/hr IV . Q24H [facility] Rx#:[id number] Tube Feeding 312 234 Other 30 60 Output: Urine 980 765 855 Other: Voiding Method Indwelling Catheter Indwelling Catheter Indwelling Catheter ABP, PAP, CO, CI - Last Documented Arterial Blood Pressure 130/60 - Exam GENERAL EXAM: Revealed a 66-year-old female, intubated, awake, follows simple instructions but seems to be slow, patient is off propofol this morning. HEAD: Normocephalic. Endotracheal tube and orogastric tube are intact. EYES: Unremarkable. NOSE: Unremarkable, intact orogastric tube.. THROAT: No erythema or exudates. NECK: No neck masses no JVD no stridor. Patient has short obese neck. CHEST: Symmetrical chest expansion noted chest wall tenderness. LUNGS: Symmetrical chest expansion, rhonchi noted bilaterally CVS: Normal S1 and S2, no S3 gallop, no murmur. ABDOMEN: Obese soft nontender no megaly no rebound no guarding. Positive bowel sounds. SKIN: No rashes CENTRAL NERVOUS SYSTEM: Patient is awake, appropriate, follows simple instructions, but generally weak EXTREMITIES: No clubbing edema or cyanosis. - Labs CBC & Chem 7: 02/22/22 03:39 02/22/22 03:39 Labs: Abnormal Lab Results - Last 24 Hours (Table) 02/21/22 02/21/22 02/21/22 Range/Units 18:03 21:12 23:14 RBC (3.80-5.40) m/uL Hgb (11.4-16.0) gm/dL Hct (34.0-46.0) % MCHC (31.0-37.0) g/dL Lymphocytes # (1.0-4.8) k/uL ABG pH (7.35-7.45) ABG pCO2 (35-45) mmHg ABG HCO3 (21-25) mmol/L ABG Total CO2 (19-24) mmol/L ABG O2 Saturation (94-97) % Carbon Dioxide (22-30) mmol/L BUN (7-17) mg/dL Glucose (74-99) mg/dL POC Glucose (mg/dL) 273 H 297 H 274 H (70-110) mg/dL 02/22/22 02/22/2202/22/22 Range/Units 03:39 03:39 05:30 RBC 3.29 L (3.80-5.40) m/uL Hgb 9.4 L (11.4-16.0) gm/dL Hct 32.0 L (34.0-46.0) % MCHC 29.4 L (31.0-37.0) g/dL Lymphocytes # 0.7 L (1.0-4.8) k/uL ABG pH (7.35-7.45) ABG pCO2 59 H (35-45) mmHg ABG HCO3 40 H* (21-25) mmol/L ABG Total CO2 42 H (19-24) mmol/L ABG O2 Saturation 98.3 H (94-97) % Carbon Dioxide 40 H (22-30) mmol/L BUN 23 H (7-17) mg/dL Glucose 202 H (74-99) mg/dL POC Glucose (mg/dL) (70-110) mg/dL 02/22/22 02/22/22 02/22/22 Range/Units 05:37 06:07 10:26 RBC (3.80-5.40) m/uL Hgb (11.4-16.0) gm/dL Hct (34.0-46.0) % MCHC (31.0-37.0) g/dL Lymphocytes # (1.0-4.8) k/uL ABG pH (7.35-7.45) ABG pCO2 (35-45) mmHg ABG HCO3 (21-25) mmol/L ABG Total CO2 (19-24) mmol/L ABG O2 Saturation (94-97) % Carbon Dioxide (22-30) mmol/L BUN (7-17) mg/dL Glucose (74-99) mg/dL POC Glucose (mg/dL) 165 H 157 H 130 H (70-110) mg/dL 02/22/22 02/22/22 Range/Units 11:07 11:31 RBC (3.80-5.40) m/uL Hgb (11.4-16.0) gm/dL Hct (34.0-46.0) % MCHC (31.0-37.0) g/dL Lymphocytes # (1.0-4.8) k/uL ABG pH 7.46 H (7.35-7.45) ABG pCO2 57 H (35-45) mmHg ABG HCO3 41 H* (21-25) mmol/L ABG Total CO2 42 H (19-24) mmol/L ABG O2 Saturation 98.0 H (94-97) % Carbon Dioxide (22-30) mmol/L BUN (7-17) mg/dL Glucose (74-99) mg/dL POC Glucose (mg/dL) 112 H (70-110) mg/dL Assessment and Plan Assessment: Impression: Acute hypoxic respiratory failure secondary to aspiration pneumonia Acute urinary tract infection secondary Enterobacter cloacae and Klebsiella pneumoniae Acute toxic metabolic encephalopathy secondary to sepsis and aspiration pneumonia Hypotension secondary to sepsis, and suspect septic shock since the patient required low-dose pressors. Chronic diastolic congestive heart failure History of aortic stenosis, being considered for the aVR. Olivopontocerebellar demyelination Suspect obesity hypoventilation syndrome Chronic urinary incontinence and previous chronic indwelling Humphrey catheter Type 2 diabetes. Suspect obstructive sleep apnea syndrome, on CPAP. Suspect chronic hypercapnic respiratory failure secondary to obstructive sleep apnea and obesity/hypoventilation syndrome History of sarcoidosis. Medical debility, patient is on electric wheelchair. Recommendation: Continue ventilatory support. However the patient will be given trials of weaning with pressure support and CPAP. Continue to hold sedation. Continue nutritional support. Continue Zosyn for aspiration pneumonia. Continue GI and DVT prophylaxis. Hold on tracheostomy and PEG tube placement Patient is critically ill, critical care time is over 30 minutes Prognosis remains relatively guarded. Time with Patient: Greater than 30
--- NOTE | 2022-02-22 13:38 | P.PN ---
Subjective Progress Note Date: 02/22/22 CHIEF COMPLAINT: Shortness of breath and altered mental status changes HISTORY OF PRESENT ILLNESS: Patient in the ICU and intubated. She is undergoing a weaning trial today. Initially she was scheduled for tracheostomy and PEG tube placement today. However, this has been canceled while she undergoes the weaning trial. Afebrile WBC 6.4 Hgb 9.4 platelets 250 Patient seen and examined with Dr. Rebolledo PHYSICAL EXAM: VITAL SIGNS: Reviewed. GENERAL: Well-developed in no acute distress. HEENT: No sclera icterus. Extraocular movements grossly intact. Moist buccal mucosa. Head is atraumatic, normocephalic. ABDOMEN: Soft. Nondistended. Nontender. ASSESSMENT: 1. Acute hypoxic respiratory failure secondary to aspiration pneumonia requiring mechanical ventilation 2. Severe protein calorie malnutrition 3. Sepsis PLAN: -Tracheostomy and PEG tube placement canceled for today while patient undergoing weaning trial. If patient fails to be able to be weaned from the vent then would proceed with tracheostomy and PEG tube placement on Friday Physician Risk Control Manager note has been reviewed by physician. Signing provider agrees with the documented findings, assessment, and plan of care. Objective - Vital Signs Vital signs: Vital Signs Temp 98.4 F 02/22/22 12:00 Pulse 87 02/22/22 12:00 Resp 7 L 02/22/22 12:25 BP 127/55 02/19/22 04:00 Pulse Ox 95 02/22/22 12:00 FiO2 40 02/22/22 10:28 Intake & Output 02/21/22 02/22/22 02/22/22 18:59 06:59 18:59 Intake Total 1066.489 893 252 Output Total 764 641 0474 Balance 86.489 128 -835 Weight 115 kg 115 kg Intake: IV 476 499 202 Piperacillin-Tazobactam 3 200 100 100 .375 gm In Sodium Chloride 0.9% 100 ml @ 25 mls/hr IVPB Q8HR [facility] Rx# :[id number] Potassium Chloride 10 meq 100 In Water For Injection 1 100ml.bag @ 100 mls/hr IVPB Q1H [facility] Rx#: [id number] Sodium Chloride 0.9% 1, 240 260 90 000 ml @ 10 mls/hr IV . Q24H [facility] Rx#:[id number] pressure bag 36 39 12 Intake, IV Titration 248.489 100 50 Amount Fluconazole in NaCl,Iso- 50 50 Osm 100 mg In Saline 1 50ml.bag @ 50 mls/hr IVPB DAILY [facility] Rx#:[id number] propofoL 1,000 mg In 198.489 100 Empty Bag 1 bag @ 5 MCG/ KG/MIN 3.27 mls/hr IV . Q24H [facility] Rx#:[id number] Tube Feeding 312 234 Other 30 60 Output: Urine 503 356 7836 Other: Voiding Method Indwelling Catheter Indwelling Catheter Indwelling Catheter ABP, PAP, CO, CI - Last Documented Arterial Blood Pressure 121/56 - Labs CBC & Chem 7: 02/22/22 03:39 02/22/22 03:39 Labs: Abnormal Lab Results - Last 24 Hours (Table) 02/21/22 02/21/22 02/21/22 Range/Units 18:03 21:12 23:14 RBC (3.80-5.40) m/uL Hgb (11.4-16.0) gm/dL Hct (34.0-46.0) % MCHC (31.0-37.0) g/dL Lymphocytes # (1.0-4.8) k/uL ABG pH (7.35-7.45) ABG pCO2 (35-45) mmHg ABG HCO3 (21-25) mmol/L ABG Total CO2 (19-24) mmol/L ABG O2 Saturation (94-97) % Carbon Dioxide (22-30) mmol/L BUN (7-17) mg/dL Glucose (74-99) mg/dL POC Glucose (mg/dL) 273 H 297 H 274 H (70-110) mg/dL 02/22/22 02/22/22 02/22/22 Range/Units 03:39 03:39 05:30 RBC 3.29 L (3.80-5.40) m/uL Hgb 9.4 L (11.4-16.0) gm/dL Hct 32.0 L (34.0-46.0) % MCHC 29.4 L (31.0-37.0) g/dL Lymphocytes # 0.7 L (1.0-4.8) k/uL ABG pH (7.35-7.45) ABG pCO2 59 H (35-45) mmHg ABG HCO3 40 H* (21-25) mmol/L ABG Total CO2 42 H (19-24) mmol/L ABG O2 Saturation 98.3 H (94-97) % Carbon Dioxide 40 H (22-30) mmol/L BUN 23 H (7-17) mg/dL Glucose 202 H (74-99) mg/dL POC Glucose (mg/dL) (70-110) mg/dL 02/22/22 02/22/22 02/22/22 Range/Units 05:37 06:07 10:26 RBC (3.80-5.40) m/uL Hgb (11.4-16.0) gm/dL Hct (34.0-46.0) % MCHC (31.0-37.0) g/dL Lymphocytes # (1.0-4.8) k/uL ABG pH (7.35-7.45) ABG pCO2 (35-45) mmHg ABG HCO3 (21-25) mmol/L ABG Total CO2 (19-24) mmol/L ABG O2 Saturation (94-97) % Carbon Dioxide (22-30) mmol/L BUN (7-17) mg/dL Glucose (74-99) mg/dL POC Glucose (mg/dL) 165 H 157 H 130 H (70-110) mg/dL 02/22/22 02/22/22 Range/Units 11:07 11:31 RBC (3.80-5.40) m/uL Hgb (11.4-16.0) gm/dL Hct (34.0-46.0) % MCHC (31.0-37.0) g/dL Lymphocytes # (1.0-4.8) k/uL ABG pH 7.46 H (7.35-7.45) ABG pCO2 57 H (35-45) mmHg ABG HCO3 41 H* (21-25) mmol/L ABG Total CO2 42 H (19-24) mmol/L ABG O2 Saturation 98.0 H (94-97) % Carbon Dioxide (22-30) mmol/L BUN (7-17) mg/dL Glucose (74-99) mg/dL POC Glucose (mg/dL) 112 H (70-110) mg/dL
[2022-02-22 13:57] LABS: Glucose,Whole Blood 141 mg/dL (70-110)
[2022-02-22 16:04] LABS: ABG Base Excess 15.8 mmol/L; ABG Oxygen Saturation 97.6 % (94-97); ABG PCO2 58 mmHg (35-45); ABG PH 7.45 (7.35-7.45); ABG PO2 89 mmHg (83-108); ABG TCO2 42 mmol/L (19-24); Allen Test Performed? Yes
[2022-02-22 16:07] LABS: ABG HCO3 40 mmol/L (21-25)
[2022-02-22 17:28] LABS: Glucose,Whole Blood 173 mg/dL (70-110)
[2022-02-22] MEDS: ACETAMINOPHEN SUPPOSITORY 650 MG SUPP RECTAL PRN (17:43)
[2022-02-22] MEDS ORDERED: IPRATROPIUM-ALBUTEROL 3 ML NEB INHALATION PRN (18:22)
[2022-02-22] MEDS ORDERED: FUROSEMIDE 10 MG/ML 10 ML VIAL IV STA (18:22)
[2022-02-22] MEDS ORDERED: LORazepam 2 MG/ML INJ IV STA (18:22)
[2022-02-22] MEDS ORDERED: ACETAMINOPHEN IV (For NPO) 1,000 MG in EMPTY BAG 1 BAG IVPB PRN (18:29)
[2022-02-22] MEDS ORDERED: KETOROLAC 15 MG/ML 1 ML VIAL IVP PRN (18:31)
[2022-02-22 18:39] LABS: ABG Oxygen Saturation 96.8 % (94-97); ABG PO2 125 mmHg (83-108); Allen Test Performed? Yes
[2022-02-22 18:56] LABS: ABG PCO2 >120 mmHg (35-45); ABG PH 7.12 (7.35-7.45)
[2022-02-22 19:29] LABS: ABG Base Excess 12.1 mmol/L; ABG HCO3 37 mmol/L (21-25); ABG Oxygen Saturation 99.4 % (94-97); ABG PCO2 56 mmHg (35-45); ABG PH 7.42 (7.35-7.45); ABG PO2 157 mmHg (83-108); ABG TCO2 38 mmol/L (19-24); Allen Test Performed? Yes
--- NOTE | 2022-02-22 19:31 | P.PN ---
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 Lifelong nonsmoker. the patient also has had previous history of recurrent UTIs, and she has a permanent Humphrey catheter in place at this point in time. she has had several hospitalizations in the past. I recently saw her in the office and she was quite stable. The patient came into the hospital becausse of altered mentation and some increased shortness of breath. the patient was seen in the ED and she was given a CAT scan of the brain that showed no acute abnormalities. her chest x-ray showed some myocardial megaly and small amount of fluid in the minor fissure and small or effusions. Otherwise other acute abnormalities have been noted. the patient's labs showed a white cell count of 7 with a hemoglobin of 10 and a platelet count of 231. Blood gases showed a pH of 7.42 with a pCO2 of 64 and pO2 113 and this was done and FiO2 of 35% I believe this was done while on the BiPAP. serum bicarb is 41 with a sodium level of 142 and a pot assium level of 3.9. Glucose is 105. troponins of 0.04 and a calcium level is at 8.3. urinalysis has been abnorrmal with increased white cell count and the patient has a permanent Humphrey catheter in place due to chronic urinary retention. The is been doing bladder flushes on this patient which is reduced the frequency of UTIs. Marilee most recent UTI was related to Klebsiella pneumoniae on 12/25/2021. Prior to that the patient had other gram-negative infections including infections with Enterobacter. For now, the patient is on IV fluids. She is on a BiPAP at a pressure of 12/6 cm of water with an FiO2 of 35%. In terms of antibiotics, the patient was given IV Rocephin. On today's evaluation of 02/16/2022, the patient is feeling better. She has no new complaints. She spent the night on BiPAP and currently she is on oxygen at 4 L. No chest pain. No nausea or vomiting. She has gram-negative UTI for which is on IV Rocephin. Seems to more alert and awake compared to yesterday and less lethargic. 02/17/2022, the patient is in the intensive care unit, intubated on a mechanical ventilator. Events from yesterday were noted. The patient was essentially stable. She was being fed in the evening and she sustained a massive aspiration. Progressively she became worse and she became hypoxic and hypercapnic and altered and she was very much tachypnea respiratory rate was in the 40s. She was given a trial of BiPAP which she feels and subsequently admitted recommendations to intubate patient and bring her to the intensive care unit. She became also septic and hypotensive during the process. For now, the patient is intubated on a mechanical ventilator. She is currently in the intensive care unit on propofol running at 50 mcg/kg per minute. She is also on assist control mode of mechanical ventilation at the rate of 24 with a tidal volume of 400 and FiO2 of 80% with a PEEP of 15. Blood gases from this morning shows a pH of 7.49 with a pCO2 of 45 and pO2 of 103. This was not an FiO2 of 100% and currently her FiO2 is down to 80%. Meanwhile I reviewed the series of chest x-ray that was done pre-and post intubation. The most recent chest x-ray shows multilobar pneumonia worsened the left perihilar left upper and left lower lobe. ET tube is around 3 cm above the earnestine and it's adequately positioned. The patient does not have any significant air leaks. Since the patient became hypotensive, she was given IV fluids and she received a total of 2 L normal saline bolus and currently her IV fluids running at the rate of 50 mL an hour. Pressors have also been added and the patient is currently on norepinephrine at 0.04 mcg/kg per minute. Her white cell count is at 15 with a hemoglobin of 11.3. BUN is at 13 with a creatinine of 1.1 and sodium is at 135. The patient was also given IV Zosyn covering for aspiration pneumonia. Note that her origin hospitalization was for a gram-negative UTI secondary to Enterobacter and Klebsiella and both of these microorganisms are sensitive to Zosyn. As such, the patient has been On single agent Zosyn. The patient is on Lovenox for DVT prophylaxis. The patient is also on NovoLog sliding scale coverage. Blood sugars are in the 200s range at this point in time. Patient was reevaluated on 02/17/22, patient remains in the ICU, intubated and mechanically ventilated. She is on assist control rate of 16 per volume 375 FiO2 40% PEEP of 15. However after evaluating the patient, I changed her ventilator settings to FiO2 of 45%, PEEP down to 12, respiration down to 12. And tidal volume was increased to 400. Patient had an ABG earlier today showed a pO2 of 114 pCO2 58 pH of 7.40 and looking at the bicarb on her initial presentation, it was relatively high, I believe the patient may have some unde rlying hypercapnia, and her pCO2 is likely in the high 50s normally. Patient is on propofol at 50 mcg/kg/m, she went off norepinephrine earlier this morning, she has IV fluid at 50 mL per hour in the form of 0.9 normal saline. She will be started on tube feeding today. Patient remains on Zosyn and vancomycin, she continues to have bilateral infiltrates consistent with aspiration pneumonia. WBC count today is 13.3 hemoglobin is 9.2. Basic metabolic profile is normal bicarb is 34.. Profile is normal. Blood sugar is 247. Urine cultures are positive for Enterobacter cloacae and Klebsiella pneumoniae and these cultures are from 02/14/22. 02/18/2022 Patient is seen in follow-up this morning continues to be on mechanical vent with an FiO2 of 45% and PEEP is 12. Patient continues on sedation of propofol and also continues with IV Zosyn and vancomycin for aspiration pneumonia. Chest xray shows bilateral patchy densities and left pleural effusion. Patient is off pressor support and some adjustments to the vent being made. Started enteral nutrition and blood sugars remain mildly elevated. Recommend to continue with gentle IV fluids and accuchecks and sliding scale achs. long acting as well. Will adjust accordingly. WBC trending down and patient is afebrile. 02/19/2022 Patient is seen this morning continues to be in the ICU on mechanical vent and FiO2 is 40% with a PEEP of 12. Patient continues on sedation and also maintained on 40 mg of IV Lasix daily along with IV Zosyn and will continue. Vancomycin discontinued. Blood sugars mildly elevated and will increase long-acting insulin and continue with sliding scale and Accu-Cheks before meals and at bedtime and as needed. Chest x-ray today shows unchanged cardiomediastinal silhouette with persistent bilateral pulmonary patchy opacification is slightly improved in the right upper lung zone an NG tube is noted. WBC is trending down at 10.0 hemoglobin is stable at 8.4. As mentioned previously blood sugars are elevated and will increase insulins. Patient is currently afebrile. Sputum cultures pending at this time and blood cultures remain negative. Urine culture showing Enterobacter Cloacae along with Klebsiella pneumonia. 02/20/2022 Patient is evaluated today during a sedation holiday and does not tolerate very well. Patient to continue on Propofol with ongoing assessment for weaning parameters. Patient is not on pressor support. Patient continues on vent with FI02 of 40%. Patient is also on IV antibiotics and sputum culture showing chapin albicans and will add diflucan. Recommend follow up on chest xray and repeat am labs ordered. Follow up on magnesium and replace per protocol. Will increase long acting insulin and recommend continued monitoring. Patient is afebrile. 02/21/2022 Patient is seen this morning in the ICU and continues to undergo sedation holidays and will likely need possible peg and trach placement. General surgery was consulted. Patient remains on an FI02 of 40% and peep is 8. Blood sugars remain elevated and have increased long acting up to 25 units and will continue sliding scale. Patient is afebrile. Sputum culture showing candid albicans and have added diflucan. Patient also remains on IV zosyn and will continue. Overall prognosis remains guarded. 02/22/22 Patient is seen today and continues in the ICU and off sedation and on CPAP mode. Patient is following simple commands and chest xray shows some improvement in aeration. ABG improved and pulmonary considering extubation as patient is tolerating well. Surgery following and was having plans of peg and trach placement today and placed on hold. Patient is NPO and will continue for now and follow up once mentation improves. Patient is afebrile and will continue with IV abx for aspiration pneumonia. Diflucan as well. Recommend follow up xray and labs in the am. Review of systems: Unable to obtain as patient is currently being extubated Active Medications Acetaminophen (Acetaminophen Tab 325 Mg Tab) 650 mg PO Q4HR PRN PRN Reason: Fever and/or Mild Pain Last Admin: 02/17/22 14:56 Dose: 650 mg Acetaminophen (Acetaminophen Suppository 650 Mg Supp) 650 mg RECTAL Q4HR PRN PRN Reason: Fever and/ or Pain Last Admin: 02/22/22 17:43 Dose: 650 mg Albuterol Sulfate (Albuterol Nebulized 2.5 Mg/3 Ml) 2.5 mg INHALATION RT-QID [facility] Last Admin: 02/22/22 16:13 Dose: 2.5 mg Albuterol/Ipratropium (Ipratropium-Albuterol 3 Ml Neb) 3 ml INHALATION RT-QID PRN PRN Reason: Shortness Of Breath Or Wheezing Last Admin: 02/22/22 18:29 Dose: 3 ml Aspirin (Aspirin 81 Mg) 81 mg PO DAILY [facility] Last Admin: 02/22/22 10:31 Dose: Not Given Atorvastatin Calcium (Atorvastatin 20 Mg Tab) 20 mg PO DAILY [facility] Last Admin: 02/22/22 10:31 Dose: Not Given Budesonide (Budesonide 0.5 Mg/2 Ml Nebu) 0.5 mg INHALATION RT-BID [facility] Last Admin: 02/22/22 07:55 Dose: 0.5 mg Chlorhexidine Gluconate (Chlorhexidine Gluconate 15 Ml Cup) 15 ml MUCOUS MEM BID [facility] Last Admin: 02/22/22 08:23 Dose: 15 ml Enoxaparin Sodium (Enoxaparin 40 Mg/0.4 Ml Syringe) 40 mg SQ DAILY [facility] Last Admin: 02/22/22 10:26 Dose: 40 mg Furosemide (Furosemide 10 Mg/Ml 4 Ml Vial) 40 mg IV DAILY [facility] Last Admin: 02/22/22 08:23 Dose: 40 mg Piperacillin Sod/Tazobactam (Sod 3.375 gm/ Sodium Chloride) 100 mls @ 25 mls/hr IVPB Q8HR [facility]; Protocol Last Admin: 02/22/22 15:50 Dose: 25 mls/hr Propofol 1,000 mg/ IV Solution 100 mls @ 3.27 mls/hr IV .Q24H [facility]; Protocol Last Admin: 02/22/22 06:56 Dose: 20 mcg/kg/min, 13.08 mls/hr Norepinephrine Bitartrate 4 mg (/ Sodium Chloride) 254 mls @ 20.765 mls/hr IV .[id number] [facility]; Protocol Last Admin: 02/22/22 15:17 Dose: Not Given Sodium Chloride (Saline 0.9%) 1,000 mls @ 10 mls/hr IV .Q24H [facility] Last Admin: 02/22/22 08:15 Dose: Not Given Fluconazole/Sodium Chloride (100 mg/ IV Solution) 50 mls @ 50 mls/hr IVPB DAILY [facility] Last Admin: 02/22/22 10:25 Dose: 50 mls/hr Acetaminophen 1,000 mg/ IV (Solution) 100 mls @ 400 mls/hr IVPB Q6HR PRN PRN Reason: Pain Stop: 02/23/22 12:14 Imipramine HCl (Imipramine 25 Mg Tab) 25 mg PO BID [facility] Last Admin: 02/22/22 10:31 Dose: Not Given Insulin Aspart (Insulin Aspart (Novolog) 100 Unit/Ml Vial) 0 unit SQ Q6H [facility]; Protocol Last Admin: 02/22/22 17:44 Dose: 2 unit Insulin Aspart (Insulin Aspart (Novolog) 100 Unit/Ml Vial) 2 unit SQ Q6H [facility]; Protocol Last Admin: 02/22/22 17:44 Dose: 2 unit Insulin Detemir (Insulin Detemir (Levemir) 100 Unit/Ml Syr) 25 unit SQ HS [facility] Last Admin: 02/21/22 21:21 Dose: 25 unit Ketorolac Tromethamine (Ketorolac 15 Mg/Ml 1 Ml Vial) 15 mg IVP Q6HR PRN PRN Reason: Pain Stop: 02/25/22 18:31 Miscellaneous Information (Potassium Replacement Protocol 1 Each Misc) 1 each MISCELLANE DAILY PRN; Protocol PRN Reason: Per Protocol Naloxone HCl (Naloxone 0.4 Mg/Ml 1 Ml Vial) 0.2 mg IV Q2M PRN PRN Reason: Opioid Reversal Physical exam: GENERAL EXAM: a 66-year-old female, morbidly obese, off sedation and on CPAP mode and attempting weaning trials and currently considering extubation with a vent setting of 40% FI02 and peep is 5 HEENT: Normocephalic. PERRLA, Endotracheal tube and orogastric tube are intact. nares are patent NECK: No masses, no JVD. Short obese neck LUNGS: Symmetrical chest expansion, diminished breath sounds bilaterally with some crackles at the bases. No rhonchi no wheezes. CARDIO: S1 and S2 muffled with no audible murmur, regular rhythm. ABDOMEN: soft, obese, non-distended, normal bowel sounds, no guarding or rigidity. SKIN: No rashes Neurological: Cannot assess completely, patient is calm and responding to simple commands EXTREMITIES: No clubbing edema or cyanosis. generalized edema noted throughout Assessment: Acute hypoxic respiratory failure secondary to aspiration pneumonia requiring mechanical ventilation, extubated today 02/22/22 Acute urinary tract infection secondary Enterobacter cloacae and Klebsiella pneumoniae Acute toxic metabolic encephalopathy secondary to sepsis and aspiration pneumonia Hypotension secondary to sepsis, with possible septic shock as patient was initially on pressor support, off pressors Chronic diastolic congestive heart failure History of Olivopontocerebellar demyelination Possible obesity hypoventilation syndrome diabetes mellitus, type 2 uncontrolled with hyperglycemia. obstructive sleep apnea syndrome, on CPAP. Possible chronic hypercapnic respiratory failure secondary to obstructive sleep apnea and obesity/hypoventilation syndrome History of sarcoidosis. GI prophylaxis DVT prophylaxis Full code Plan: Recommend to continue with close monitoring in the ICU with sedation holidays and weaning parameters being assessed. Patient remains on mechanical vent at 40% FiO2 and peep is 5. Currently on assist mode with CPAP and tolerating. ABG improved and patient is off sedation and being extubated and placed on Bipap. consult to surgery for peg and trach placement currently on hold. Recommend to continue with accuchecks achs and have increased long acting insulin to 25 units at hs for the elevated blood sugars Continue antibiotics in the form of Zosyn and diflucan REcommend to continue with IV lasix daily Recommend follow up chest xray and labs in the am, replace electric per protocol Overall prognosis is extremely guarded at this time. The impression and plan of care has been dictated by Ayleen Cheng, Nurse Practitioner as directed. MD Laisha I have performed a history and examination and MDM of this patient, discussed the same with the dictator, and agree with the dictator's assessment and plan as written ,documented as a scribe. Based on total visit time, I have performed more than 50% of the visit. Objective - Vital Signs Vital signs: Vital Signs Temp 99.6 F 02/22/22 04:00 Pulse 86 02/22/22 08:14 Resp 12 02/22/22 07:00 BP 127/55 02/19/22 04:00 Pulse Ox 96 02/22/22 07:00 FiO2 40 02/22/22 07:12 Intake & Output 02/21/22 02/22/22 02/22/22 18:59 06:59 18:59 Intake Total 1066.489 893 33 Output Total 980 765 95 Balance 86.489 128 -62 Weight 115 kg Intake: IV 476 499 33 Piperacillin-Tazobactam 3 200 100 .375 gm In Sodium Chloride 0.9% 100 ml @ 25 mls/hr IVPB Q8HR [facility] Rx# :[id number] Potassium Chloride 10 meq 100 In Water For Injection 1 100ml.bag @ 100 mls/hr IVPB Q1H [facility] Rx#: [id number] Sodium Chloride 0.9% 1, 240 260 30 000 ml @ 10 mls/hr IV . Q24H [facility] Rx#:[id number] pressure bag 36 39 3 Intake, IV Titration 248.489 100 Amount Fluconazole in NaCl,Iso- 50 Osm 100 mg In Saline 1 50ml.bag @ 50 mls/hr IVPB DAILY [facility] Rx#:[id number] propofoL 1,000 mg In 198.489 100 Empty Bag 1 bag @ 5 MCG/ KG/MIN 3.27 mls/hr IV . Q24H [facility] Rx#:[id number] Tube Feeding 312 234 Other 30 60 Output: Urine 980 765 95 Other: Voiding Method Indwelling Catheter Indwelling Catheter ABP, PAP, CO, CI - Last Documented Arterial Blood Pressure 125/59 - Labs CBC & Chem 7: 02/22/22 03:39 02/22/22 03:39 Labs: Abnormal Lab Results - Last 24 Hours (Table) 02/21/22 02/21/22 02/21/22 Range/Units 11:25 18:03 21:12 RBC (3.80-5.40) m/uL Hgb (11.4-16.0) gm/dL Hct (34.0-46.0) % MCHC (31.0-37.0) g/dL Lymphocytes # (1.0-4.8) k/uL ABG pCO2 (35-45) mmHg ABG HCO3 (21-25) mmol/L ABG Total CO2 (19-24) mmol/L ABG O2 Saturation (94-97) % Carbon Dioxide (22-30) mmol/L BUN (7-17) mg/dL Glucose (74-99) mg/dL POC Glucose (mg/dL) 244 H 273 H 297 H (70-110) mg/dL 02/21/22 02/22/22 02/22/22 Range/Units 23:14 03:39 03:39 RBC 3.29 L (3.80-5.40) m/uL Hgb 9.4 L (11.4-16.0) gm/dL Hct 32.0 L (34.0-46.0) % MCHC 29.4 L (31.0-37.0) g/dL Lymphocytes # 0.7 L (1.0-4.8) k/uL ABG pCO2 (35-45) mmHg ABG HCO3 (21-25) mmol/L ABG Total CO2 (19-24) mmol/L ABG O2 Saturation (94-97) % Carbon Dioxide 40 H (22-30) mmol/L BUN 23 H (7-17) mg/dL Glucose 202 H (74-99) mg/dL POC Glucose (mg/dL) 274 H (70-110) mg/dL 02/22/22 02/22/22 02/22/22 Range/Units 05:30 05:37 06:07 RBC (3.80-5.40) m/uL Hgb (11.4-16.0) gm/dL Hct (34.0-46.0) % MCHC (31.0-37.0) g/dL Lymphocytes # (1.0-4.8) k/uL ABG pCO2 59 H (35-45) mmHg ABG HCO3 40 H* (21-25) mmol/L ABG Total CO2 42 H (19-24) mmol/L ABG O2 Saturation 98.3 H (94-97) % Carbon Dioxide (22-30) mmol/L BUN (7-17) mg/dL Glucose (74-99) mg/dL POC Glucose (mg/dL) 165 H 157 H (70-110) mg/dL
--- NOTE | 2022-02-22 19:54 | XR ---
EXAMINATION TYPE: XR chest 1V portable DATE OF EXAM: 02/22/2022 7:09 PM COMPARISON: Chest radiograph from same day. TECHNIQUE: XR chest 1V portable Frontal view of the chest. CLINICAL INDICATION:Female, 66 years old with history of Tube placement; FINDINGS: Lungs/Pleura: Similar multifocal airspace opacities. No evidence of pneumothorax or pleural effusion. Pulmonary vascularity: Unremarkable. Heart/mediastinum: Cardiomediastinal silhouette is unremarkable. Musculoskeletal: No acute osseous pathology. Lines/Tubes: Endotracheal tube with distal tip 2.8 cm above the earnestine Nasogastric tube with its distal tip and side-port projecting under the diaphragm. IMPRESSION: 1. Similar multifocal airspace opacities. 2. Stable support lines and tubes.
[2022-02-22 20:28] LABS: Glucose,Whole Blood 214 mg/dL (70-110)
[2022-02-22] MEDS: INSULIN DETEMIR (LEVEMIR) 100 UNIT/ML SYR SQ SCH (20:34)
[2022-02-22 23:33] LABS: Glucose,Whole Blood 216 mg/dL (70-110)
[2022-02-23 04:11] LABS: Basophils # (A) 0.1 k/uL (0-0.2); Basophils % (A) 1 %; Eosinophils # (A) 0.2 k/uL (0-0.7); Eosinophils % (A) 3 %; HCT 31.1 % (34.0-46.0); HGB 9.5 gm/dL (11.4-16.0); Hypochromasia Moderate; Lymphocytes # (A) 0.9 k/uL (1.0-4.8); Lymphocytes % (A) 13 %; MCH 28.8 pg (25.0-35.0); MCHC 30.5 g/dL (31.0-37.0); MCV 94.2 fL (80.0-100.0); Mean Platelet Volume 9.8; Monocytes # (A) 0.5 k/uL (0-1.0); Monocytes % (A) 7 %; Neutrophils # (A) 5.4 k/uL (1.3-7.7); Neutrophils % (A) 75 %; Platelet Count 263 k/uL (150-450); RDW 15.2 % (11.5-15.5); WBC 7.2 k/uL (3.8-10.6)
[2022-02-23 04:20] LABS: Calcium 8.4 mg/dL (8.4-10.2); Potassium 3.3 mmol/L (3.5-5.1)
[2022-02-23 05:18] LABS: Glucose,Whole Blood 238 mg/dL (70-110)
[2022-02-23] MEDS: INSULIN ASPART (NovoLOG) 100 UNIT/ML VIAL SQ SCH ×8 (05:25→23:13)
[2022-02-23] MEDS: POTASSIUM BICARBONATE/CIT AC 20 MEQ TABLET.EFF NG-TUBE SCH ×2 (05:26→06:30)
[2022-02-23 05:28] LABS: ABG Base Excess 14.7 mmol/L; ABG HCO3 38 mmol/L (21-25); ABG Oxygen Saturation 98.4 % (94-97); ABG PCO2 46 mmHg (35-45); ABG PH 7.52 (7.35-7.45); ABG PO2 95 mmHg (83-108); ABG TCO2 39 mmol/L (19-24)
[2022-02-23 05:29] LABS: Allen Test Performed? no
[2022-02-23] MEDS: ALBUTEROL NEBULIZED 2.5 MG/3 ML INHALATION SCH ×4 (07:18→19:00)
[2022-02-23] MEDS: BUDESONIDE 0.5 MG/2 ML NEBU INHALATION SCH ×2 (07:18→19:00)
--- NOTE | 2022-02-23 07:29 | XR ---
EXAMINATION TYPE: XR chest 1V portable DATE OF EXAM: 02/23/2022 COMPARISON: Prior chest x-ray 02/22/2022 HISTORY: Intubated TECHNIQUE: Single frontal view of the chest is obtained. FINDINGS: Exam is limited technically likely due to patient body habitus. Endotracheal tube and NG t ube are overlying appropriate positions. Patient is rotated. There is no evident pneumothorax. Bibasi lar density obscures the hemidiaphragms. Cardiac mediastinal silhouette is likely stable. Central vas cularity appears prominently. IMPRESSION: Correlate for congestive heart failure, pneumonia not excluded, there may be associated effusions
[2022-02-23] MEDS: NOREPINEPHRINE 4 MG in SODIUM CHLORIDE 0.9% 250 ML IV SCH ×2 (07:41→15:31)
[2022-02-23] MEDS: SODIUM CHLORIDE 0.9% 1,000 ML IV SCH ×2 (07:42→23:48)
[2022-02-23] MEDS: PIPERACILLIN-TAZOBACTAM 3.375 GM in SODIUM CHLORIDE 0.9% 100 ML IVPB SCH ×3 (07:58→23:13)
[2022-02-23] MEDS: IMIPRAMINE 25 MG TAB PO SCH ×2 (08:00→20:05)
[2022-02-23] MEDS: ASPIRIN 81 MG PO SCH (08:00)
[2022-02-23] MEDS: CHLORHEXIDINE GLUCONATE 15 ML CUP MUCOUS MEM SCH ×2 (08:00→20:09)
[2022-02-23] MEDS: ENOXAPARIN 40 MG/0.4 ML SYRINGE SQ SCH (08:01)
[2022-02-23] MEDS: ATORVASTATIN 20 MG TAB PO SCH (08:01)
[2022-02-23] MEDS: FUROSEMIDE 10 MG/ML 4 ML VIAL IV SCH ×2 (08:01→20:08)
[2022-02-23] MEDS: FLUCONAZOLE IN NACL,ISO-OSM 100 MG in SALINE 1 50ML.BAG IVPB SCH (10:15)
--- NOTE | 2022-02-23 11:16 | P.PN ---
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 She is currently attempting weaning trial. As a result of her intubation, nutrition is via orogastric tube. ROS: No reports of nausea and vomiting. A temperature 100.7. No new chest pain. PHYSICAL EXAM: VITAL SIGNS: Reviewed CONSTITUTIONAL: Well developed and in no acute distress. EYES: Conjuctivae without sclera icterus. Extraocular movements grossly intact. HEAD, EARS, NOSE, THROAT: Moist buccal mucosa. Head is atraumatic, normocephalic. Hears conversational speech. No nasal drainage. RESPIRATORY: On mechanical ventilation. CARDIOVASCULAR: Palpable 2+ radial pulses. ABDOMEN: Protuberant. MUSCULOSKELETAL: No gross deformity of the lower extremities noted. No clubbing. No cyanosis. SKIN: Good skin turgor. Well perfused. NEUROLOGIC: Cranial nerves II through XII grossly intact. No focal or lateralizing signs. PSYCH: Open eyes spontaneously. CLINICAL LABS: Reviewed. ASSESSMENT: 1. Metabolic encephalopathy 2. Sepsis 3. Acute hypoxemic respiratory failure on mechanical ventilation 4. Morbid obesity and excess calories 5. Inadequate protein intake due to mechanical ventilation 6. Moderate protein malnutrition PLAN: 1. Continue weaning trials as tolerated. 2. Otherwise, tracheostomy gastrostomy tube placement Objective - Vital Signs Vital signs: Vital Signs Temp 100.1 F H 02/23/22 08:00 Pulse 87 02/23/22 09:00 Resp 18 02/23/22 09:00 BP 100/51 02/23/22 09:00 Pulse Ox 98 02/23/22 09:00 FiO2 60 02/23/22 09:00 Intake & Output 02/22/22 02/23/22 02/23/22 18:59 06:59 18:59 Intake Total 590 862.04 271.154 Output Total 1434 1312 205 Balance -844 -449.96 66.154 Weight 115 kg 112.6 kg Intake: IV 440 376 46 Piperacillin-Tazobactam 3 200 100 .375 gm In Sodium Chloride 0.9% 100 ml @ 25 mls/hr IVPB Q8HR [facility] Rx# :[id number] Sodium Chloride 0.9% 1, 210 240 40 000 ml @ 10 mls/hr IV . Q24H [facility] Rx#:[id number] pressure bag 30 36 6 Intake, IV Titration 150 61.04 55.154 Amount Fluconazole in NaCl,Iso- 50 Osm 100 mg In Saline 1 50ml.bag @ 50 mls/hr IVPB DAILY [facility] Rx#:[id number] propofoL 1,000 mg In 100 61.04 55.154 Empty Bag 1 bag @ 5 MCG/ KG/MIN 3.27 mls/hr IV . Q24H [facility] Rx#:[id number] Tube Feeding 335 90 Other 90 80 Output: Urine 1434 1312 205 Other: Voiding Method Indwelling Catheter Indwelling Catheter Indwelling Catheter ABP, PAP, CO, CI - Last Documented Arterial Blood Pressure 99/50 - Labs CBC & Chem 7: 02/23/22 04:00 02/23/22 04:00 Labs: Abnormal Lab Results - Last 24 Hours (Table) 02/22/22 02/22/22 02/22/22 Range/Units 10:26 11:07 11:31 RBC (3.80-5.40) m/uL Hgb (11.4-16.0) gm/dL Hct (34.0-46.0) % MCHC (31.0-37.0) g/dL Lymphocytes # (1.0-4.8) k/uL ABG pH 7.46 H (7.35-7.45) ABG pCO2 57 H (35-45) mmHg ABG pO2 (83-108) mmHg ABG HCO3 41 H* (21-25) mmol/L ABG Total CO2 42 H (19-24) mmol/L ABG O2 Saturation 98.0 H (94-97) % Potassium (3.5-5.1) mmol/L Carbon Dioxide (22-30) mmol/L BUN (7-17) mg/dL Glucose (74-99) mg/dL POC Glucose (mg/dL) 130 H 112 H (70-110) mg/dL 02/22/22 02/22/22 02/22/22 Range/Units 13:56 15:58 17:25 RBC (3.80-5.40) m/uL Hgb (11.4-16.0) gm/dL Hct (34.0-46.0) % MCHC (31.0-37.0) g/dL Lymphocytes # (1.0-4.8) k/uL ABG pH (7.35-7.45) ABG pCO2 58 H (35-45) mmHg ABG pO2 (83-108) mmHg ABG HCO3 40 H* (21-25) mmol/L ABG Total CO2 42 H (19-24) mmol/L ABG O2 Saturation 97.6 H (94-97) % Potassium (3.5-5.1) mmol/L Carbon Dioxide (22-30) mmol/L BUN (7-17) mg/dL Glucose (74-99) mg/dL POC Glucose (mg/dL) 141 H 173 H (70-110) mg/dL 02/22/22 02/22/22 02/22/22 Range/Units 18:37 19:24 20:25 RBC (3.80-5.40) m/uL Hgb (11.4-16.0) gm/dL Hct (34.0-46.0) % MCHC (31.0-37.0) g/dL Lymphocytes # (1.0-4.8) k/uL ABG pH 7.12 L* (7.35-7.45) ABG pCO2 >120 H* 56 H (35-45) mmHg ABG pO2 125 H 157 H (83-108) mmHg ABG HCO3 37 H (21-25) mmol/L ABG Total CO2 38 H (19-24) mmol/L ABG O2 Saturation 99.4 H (94-97) % Potassium (3.5-5.1) mmol/L Carbon Dioxide (22-30) mmol/L BUN (7-17) mg/dL Glucose (74-99) mg/dL POC Glucose (mg/dL) 214 H (70-110) mg/dL 02/22/22 02/23/22 02/23/22 Range/Units 23:31 04:00 04:00 RBC 3.30 L (3.80-5.40) m/uL Hgb 9.5 L (11.4-16.0) gm/dL Hct 31.1 L (34.0-46.0) % MCHC 30.5 L (31.0-37.0) g/dL Lymphocytes # 0.9 L (1.0-4.8) k/uL ABG pH (7.35-7.45) ABG pCO2 (35-45) mmHg ABG pO2 (83-108) mmHg ABG HCO3 (21-25) mmol/L ABG Total CO2 (19-24) mmol/L ABG O2 Saturation (94-97) % Potassium 3.3 L (3.5-5.1) mmol/L Carbon Dioxide 38 H (22-30) mmol/L BUN 26 H (7-17) mg/dL Glucose 195 H (74-99) mg/dL POC Glucose (mg/dL) 216 H (70-110) mg/dL 02/23/22 02/23/22 Range/Units 05:16 05:21 RBC (3.80-5.40) m/uL Hgb (11.4-16.0) gm/dL Hct (34.0-46.0) % MCHC (31.0-37.0) g/dL Lymphocytes # (1.0-4.8) k/uL ABG pH 7.52 H (7.35-7.45) ABG pCO2 46 H (35-45) mmHg ABG pO2 (83-108) mmHg ABG HCO3 38 H (21-25) mmol/L ABG Total CO2 39 H (19-24) mmol/L ABG O2 Saturation 98.4 H (94-97) % Potassium (3.5-5.1) mmol/L Carbon Dioxide (22-30) mmol/L BUN (7-17) mg/dL Glucose (74-99) mg/dL POC Glucose (mg/dL) 238 H (70-110) mg/dL
[2022-02-23 11:43] LABS: Glucose,Whole Blood 228 mg/dL (70-110)
--- NOTE | 2022-02-23 11:49 | P.PN ---
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 Lifelong nonsmoker. the patient also has had previous history of recurrent UTIs, and she has a permanent Humphrey catheter in place at this point in time. she has had several hospitalizations in the past. I recently saw her in the office and she was quite stable. The patient came into the hospital becausse of altered mentation and some increased shortness of breath. the patient was seen in the ED and she was given a CAT scan of the brain that showed no acute abnormalities. her chest x-ray showed some myocardial megaly and small amount of fluid in the minor fissure and small or effusions. Otherwise other acute abnormalities have been noted. the patient's labs showed a white cell count of 7 with a hemoglobin of 10 and a platelet count of 231. Blood gases showed a pH of 7.42 with a pCO2 of 64 and pO2 113 and this was done and FiO2 of 35% I believe this was done while on the BiPAP. serum bicarb is 41 with a sodium level of 142 and a potassium level of 3.9. Glucose is 105. troponins of 0.04 and a calcium level is at 8.3. urinalysis has been abnorrmal with increased white cell count and the patient has a permanent Humphrey catheter in place due to chronic urinary retention. The is been doing bladder flushes on this patient which is reduced the frequency of UTIs. Marilee most recent UTI was related to Klebsiella pneumoniae on 12/25/2021. Prior to that the patient had other gram-negative infections including infections with Enterobacter. For now, the patient is on IV fluids. She is on a BiPAP at a pressure of 12/6 cm of water with an FiO2 of 35%. In terms of antibiotics, the patient was given IV Rocephin. On today's evaluation of 02/16/2022, the patient is feeling better. She has no new complaints. She spent the night on BiPAP and currently she is on oxygen at 4 L. No chest pain. No nausea or vomiting. She has gram-negative UTI for which is on IV Rocephin. Seems to more alert and awake compared to yesterday and less lethargic. 02/17/2022, the patient is in the intensive care unit, intubated on a mechanical ventilator. Events from yesterday were noted. The patient was essentially stable. She was being fed in the evening and she sustained a massive a spiration. Progressively she became worse and she became hypoxic and hypercapnic and altered and she was very much tachypnea respiratory rate was in the 40s. She was given a trial of BiPAP which she feels and subsequently admitted recommendations to intubate patient and bring her to the intensive care unit. She became also septic and hypotensive during the process. For now, the patient is intubated on a mechanical ventilator. She is currently in the intensive care unit on propofol running at 50 mcg/kg per minute. She is also on assist control mode of mechanical ventilation at the rate of 24 with a tidal volume of 400 and FiO2 of 80% with a PEEP of 15. Blood gases from this morning shows a pH of 7.49 with a pCO2 of 45 and pO2 of 103. This was not an FiO2 of 100% and currently her FiO2 is down to 80%. Meanwhile I reviewed the series of chest x-ray that was done pre-and post intubation. The most recent chest x-ray shows multilobar pneumonia worsened the left perihilar left upper and left lower lobe. ET tube is around 3 cm above the earnestine and it's adequately positioned. The patient does not have any significant air leaks. Since the patient became hypotensive, she was given IV fluids and she received a total of 2 L normal saline bolus and currently her IV fluids running at the rate of 50 mL an hour. Pressors have also been added and the patient is currently on norepinephrine at 0.04 mcg/kg per minute. Her white cell count is at 15 with a hemoglobin of 11.3. BUN is at 13 with a creatinine of 1.1 and sodium is at 135. The patient was also given IV Zosyn covering for aspiration pneumonia. Note that her origin hospitalization was for a gram-negative UTI secondary to Enterobacter and Klebsiella and both of these microorganisms are sensitive to Zosyn. As such, the patient has been On single agent Zosyn. The patient is on Lovenox for DVT prophylaxis. The patient is also on NovoLog sliding scale coverage. Blood sugars are in the 200s range at this point in time. Patient was reevaluated on 02/18/22, patient remains in the ICU, intubated and mechanically ventilated. She is on assist control rate of 16 per volume 375 FiO2 40% PEEP of 15. However after evaluating the patient, I changed her ventilator settings to FiO2 of 45%, PEEP down to 12, respiration down to 12. And tidal volume was increased to 400. Patient had an ABG earlier today showed a pO2 of 114 pCO2 58 pH of 7.40 and looking at the bicarb on her initial presentation, it was relatively high, I believe the patient may have some underlying hypercapnia, and her pCO2 is likely in the high 50s normally. Patient is on propofol at 50 mcg/kg/m, she went off norepinephrine earlier this morning, she has IV fluid at 50 mL per hour in the form of 0.9 normal saline. She will be started on tube feeding today. Patient remains on Zosyn and vancomycin, she continues to have bilateral infiltrates consistent with aspiration pneumonia. WBC count today is 13.3 hemoglobin is 9.2. Basic metabol ic profile is normal bicarb is 34.. Profile is normal. Blood sugar is 247. Urine cultures are positive for Enterobacter cloacae and Klebsiella pneumoniae and these cultures are from 02/14/22. Reevaluated today on 02/19/22, patient remains in the ICU, remains intubated and mechanically ventilated. She is on assist control of 12 tidal volume 400 FiO2 40% and PEEP of 5 ABG showed a pO2 of 91 pCO2 61 pH of 7.41. Patient is not requiring any pressors. Patient failed the weaning yesterday, she went off sedation, however she became tachypneic, and did not follow any commands or instructions. Had to be placed back on sedation and continue mechanical ventilation. Today I plan to do the same and hold sedation and assessment of status at least today. She is still on propofol at 40 mcg/kg/m IV fluid at KVO vital HPI at 30 mL per hour. Chest x-ray continues show bilateral infiltrates. Patient will remain on antibiotics however I will discontinue vancomycin. No ventilator changes were made today. Patient remains on Zosyn but off vancomycin today. Remains on Lasix at 40 mg IV push daily. Remains on Joshua dilators and on GI and DVT prophylaxis. Reevaluated today on 02/20/22, remains intubated and mechanically ventilated. He is on assist control rate of 12 tidal volume 400 FiO2 40% PEEP of 12. I cut down her PEEP down to 8. ABG showed a pO2 of 107 pCO2 61 pH of 7.43. Patient remains on propofol presently at 30 mcg/kg/m, IV fluid at KVO, Zosyn for presumptive aspiration pneumonia. Remains on vital HPI 39 mL per hour. Patient did have sedation interruption yesterday, however still could not follow any instructions, opens eyes but does not follow any instructions. Chest x-ray continues show bilateral infiltrates consistent with aspiration pneumonia. Labs today showed WBC count of 7.2 hemoglobin 8.9. Basic metabolic profile is normal, renal profile is normal. Bicarb is 38 indicative of chronic hypercapnia and metabolic compensation Reevaluated today on 02/21/22, patient remains intubated and mechanically ventilated. Not much of a change in the last 24 hours, patient could not stay off sedation to long as she became tachycardic, tachypneic, and this was done y esterday. Had to be placed back on propofol obviously the patient could be she is on assist control rate of 12 tidal volume 400 FiO2 40% PEEP of 8. ABG showed a pO2 of 93 pCO2 60 pH of 7.44. Patient is on propofol at 30 mcg/kg/m, also on normal saline at 20 mL per hour. Her chest x-ray is showing slight improvement. Nonetheless, the patient, and today I recommended surgical consultation with general surgery for possible tracheostomy and PEG tube placement. Propofol is presently 50 mg/m. I cut it down to 20 mcg/kg/m. Feeding [place], the patient is on vital HPI 39 mL per hour. Patient remains empirically on antibiotics for presumptive aspiration pneumonia. Again her chest x-ray is showing slight improvement, but not back to normal Reevaluated today on 02/22/2022, patient remains in the ICU, intubated and mechanically ventilated. She is on assist control rate of 12 tidal volume 400 FiO2 40% PEEP was 8 and I cut it down to 5. Patient had an ABG this morning showed a pO2 of 99 pCO2 59 pH of 7.44. Chest x-ray is showing improvement but not complete clearance of her pneumonia. Patient remains on Zosyn. Today the patient is off propofol from earlier this morning, and she seems to be very calm, she is awake, seems to be slow but generally weak, and she is able to follow instructions. Considering the improvement in her mental status today, I recommended that we hold on tracheostomy and PEG tube placement, patient will be given a trial of pressure support and CPAP. And based on that may decide further weaning of the pressure support, and possibly extubate to BiPAP if pos sible. In the meantime we'll continue to hold the tube feeding, continue to hold all sedations and all narcotics. And again hoping to cut down the pressure support to 10 or 8, and if she continues to tolerate this may consider x-raying the patient to BiPAP. ABG after 2 hours on pressure support and CPAP showed a pO2 of 95 pCO2 57 pH of 7.46. WBC count today is 6.4 hemoglobin is 9.4 basic metabolic profile is normal renal profile is normal Reevaluated today on 02/23/22, patient was extubated yesterday, however about 5 hours later, patient could not tolerate BiPAP, and she was desaturating, patient was getting a bit more restless, I was made aware about her condition, and I recommended that he intubation. Patient is back on the ventilator, assist control rate of 18 cut it down to 16 volume 400 FiO2 60% cut it down to 50% and PEEP is at 8. ABG this morning showed a pO2 of 95 pCO2 46 pH of 7.50. Chest x- ray continues to show bilateral great, possibly some component of interstitial e mandeep. Her WBC count is 7.2 hemoglobin 9.5. Basic metabolic profile is normal, renal profile is normal, blood sugar is 228. Patient remains on antibiotics in the form of Zosyn for aspiration pneumonia remains on enteral feeding, and that seems to be fairly well tolerated. Lasix was increased today to 40 mg IV push every 12 hours. Patient is on updrafts, she is also on Pulmicort, Lovenox 40 mg subcu daily, and she is on her usual home meds including imipramine 25 mg by mouth twice a day patient is hemodynamically stable, not requiring any pressors. Objective - Vital Signs Vital signs: Vital Signs Temp 100.1 F H 02/23/22 08:00 Pulse 86 02/23/22 11:20 Resp 16 02/23/22 11:00 BP 100/51 02/23/22 10:00 Pulse Ox 97 06/18/22 11:00 FiO2 50 02/23/22 11:05 Intake & Output 02/22/22 02/23/22 02/23/22 18:59 06:59 18:59 Intake Total 590 862.04 587.299 Output Total 1434 1312 775 Balance -844 -449.96 -187.701 Weight 115 kg 112.6 kg Intake: IV 440 376 138 Piperacillin-Tazobactam 3 200 100 .375 gm In Sodium Chloride 0.9% 100 ml @ 25 mls/hr IVPB Q8HR [facility] Rx# :[id number] Sodium Chloride 0.9% 1, 210 240 120 000 ml @ 10 mls/hr IV . Q24H [facility] Rx#:[id number] pressure bag 30 36 18 Intake, IV Titration 150 61.04 99.299 Amount Fluconazole in NaCl,Iso- 50 Osm 100 mg In Saline 1 50ml.bag @ 50 mls/hr IVPB DAILY [facility] Rx#:[id number] propofoL 1,000 mg In 100 61.04 99.299 Empty Bag 1 bag @ 5 MCG/ KG/MIN 3.27 mls/hr IV . Q24H [facility] Rx#:[id number] Tube Feeding 335 270 Other 90 80 Output: Urine 1434 1312 775 Other: Voiding Method Indwelling Catheter Indwelling Catheter Indwelling Catheter ABP, PAP, CO, CI - Last Documented Arterial Blood Pressure 107/48 - Exam GENERAL EXAM: Revealed a 66-year-old female, intubated, sedated, on propofol at 25 mcg/kg/m. HEAD: Normocephalic. Endotracheal tube and orogastric tube are intact. EYES: PERRLA, EOMI, nonicteric.. NOSE: Normal nasal mucosa. Unremarkable. THROAT: No erythema or exudates. Orogastric tube is intact. NECK: Short obese neck, no neck masses no JVD no stridor. CHEST: Symmetrical chest expansion noted chest wall tenderness. LUNGS: Fine crackles at the bases CVS: Distant S1 and S2, no S3 gallop, no murmur. ABDOMEN: Obese soft nontender no megaly no rebound no guarding. Positive bowel sounds. SKIN: No rashes CENTRAL NERVOUS SYSTEM: Could not assess today, patient is sedated on propofol. No plans to wean today. EXTREMITIES: No clubbing edema or cyanosis. - Labs CBC & Chem 7: 02/23/22 04:00 02/23/22 04:00 Labs: Abnormal Lab Results - Last 24 Hours (Table) 02/22/22 02/22/22 02/22/22 Range/Units 13:56 15:58 17:25 RBC (3.80-5.40) m/uL Hgb (11.4-16.0) gm/dL Hct (34.0-46.0) % MCHC (31.0-37.0) g/dL Lymphocytes # (1.0-4.8) k/uL ABG pH (7.35-7.45) ABG pCO2 58 H (35-45) mmHg ABG pO2 (83-108) mmHg ABG HCO3 40 H* (21-25) mmol/L ABG Total CO2 42 H (19-24) mmol/L ABG O2 Saturation 97.6 H (94-97) % Potassium (3.5-5.1) mmol/L Carbon Dioxide (22-30) mmol/L BUN (7-17) mg/dL Glucose (74-99) mg/dL POC Glucose (mg/dL) 141 H 173 H (70-110) mg/dL 02/22/22 02/22/22 02/22/22 Range/Units 18:37 19:24 20:25 RBC (3.80-5.40) m/uL Hgb (11.4-16.0) gm/dL Hct (34.0-46.0) % MCHC (31.0-37.0) g/dL Lymphocytes # (1.0-4.8) k/uL ABG pH 7.12 L* (7.35-7.45) ABG pCO2 >120 H* 56 H (35-45) mmHg ABG pO2 125 H 157 H (83-108) mmHg ABG HCO3 37 H (21-25) mmol/L ABG Total CO2 38 H (19-24) mmol/L ABG O2 Saturation 99.4 H (94-97) % Potassium (3.5-5.1) mmol/L Carbon Dioxide (22-30) mmol/L BUN (7-17) mg/dL Glucose (74-99) mg/dL POC Glucose (mg/dL) 214 H (70-110) mg/dL 02/22/22 02/23/22 02/23/22 Range/Units 23:31 04:00 04:00 RBC 3.30 L (3.80-5.40) m/uL Hgb 9.5 L (11.4-16.0) gm/dL Hct 31.1 L (34.0-46.0) % MCHC 30.5 L (31.0-37.0) g/dL Lymphocytes # 0.9 L (1.0-4.8) k/uL ABG pH (7.35-7.45) ABG pCO2 (35-45) mmHg ABG pO2 (83-108) mmHg ABG HCO3 (21-25) mmol/L ABG Total CO2 (19-24) mmol/L ABG O2 Saturation (94-97) % Potassium 3.3 L (3.5-5.1) mmol/L Carbon Dioxide 38 H (22-30) mmol/L BUN 26 H (7-17) mg/dL Glucose 195 H (74-99) mg/dL POC Glucose (mg/dL) 216 H (70-110) mg/dL 02/23/22 02/23/22 Range/Units 05:16 05:21 RBC (3.80-5.40) m/uL Hgb (11.4-16.0) gm/dL Hct (34.0-46.0) % MCHC (31.0-37.0) g/dL Lymphocytes # (1.0-4.8) k/uL ABG pH 7.52 H (7.35-7.45) ABG pCO2 46 H (35-45) mmHg ABG pO2 (83-108) mmHg ABG HCO3 38 H (21-25) mmol/L ABG Total CO2 39 H (19-24) mmol/L ABG O2 Saturation 98.4 H (94-97) % Potassium (3.5-5.1) mmol/L Carbon Dioxide (22-30) mmol/L BUN (7-17) mg/dL Glucose (74-99) mg/dL POC Glucose (mg/dL) 238 H (70-110) mg/dL Assessment and Plan Assessment: Impression: Acute hypoxic respiratory failure secondary to aspiration pneumonia Acute urinary tract infection secondary Enterobacter cloacae and Klebsiella pneumoniae treated with Zosyn. Acute toxic metabolic encephalopathy secondary to sepsis and aspiration pneumonia Hypotension secondary to sepsis, and suspect septic shock since the patient required low-dose pressors. Presently off pressors. Chronic diastolic congestive heart failure remains on diuretics Lasix 40 mg IV push twice a day. History of aortic stenosis, being considered for the aVR. Olivopontocerebellar demyelination obesity hypoventilation syndrome Type 2 diabetes. Suspect obstructive sleep apnea syndrome, on home CPAP. Suspect chronic hypercapnic respiratory failure secondary to obstructive sleep apnea and obesity/hypoventilation syndrome History of sarcoidosis. Medical debility, patient is on electric wheelchair. Failed extubation on 02/22/2022. Patient was extubated to BiPAP, lasted about 5 hours Recommendation: Surgery to evaluate for possible tracheostomy and PEG tube placement on Friday. Continue ventilatory support. Continue sedation. Continue nutritional support. Patient is on enteral feeding. Continue Zosyn for aspiration pneumonia. And for UTI. Continue GI and DVT prophylaxis. Patient is critically ill, critical care time is over 30 minutes Prognosis is poor Time with Patient: Greater than 30
[2022-02-23] MEDS ORDERED: Potassium Replacement Protocol 1 EACH MISC MISCELLANE PRN (17:13)
[2022-02-23 17:58] LABS: Glucose,Whole Blood 272 mg/dL (70-110)
[2022-02-23] MEDS ORDERED: POTASSIUM BICARBONATE/CIT AC 20 MEQ TABLET.EFF NG-TUBE SCH ×2 (18:00→23:00)
[2022-02-23] MEDS: INSULIN DETEMIR (LEVEMIR) 100 UNIT/ML SYR SQ SCH (20:08)
[2022-02-23 20:09] LABS: Glucose,Whole Blood 264 mg/dL (70-110)
[2022-02-23 22:59] LABS: Glucose,Whole Blood 275 mg/dL (70-110)
[2022-02-24] MEDS: NOREPINEPHRINE 4 MG in SODIUM CHLORIDE 0.9% 250 ML IV SCH ×2 (03:50→15:25)
[2022-02-24 04:59] LABS: Calcium 8.3 mg/dL (8.4-10.2); Potassium 3.8 mmol/L (3.5-5.1)
[2022-02-24 05:05] LABS: Basophils % (A) 1 %; Eosinophils # (A) 0.2 k/uL (0-0.7); Eosinophils % (A) 4 %; HCT 31.6 % (34.0-46.0); HGB 9.6 gm/dL (11.4-16.0); Hypochromasia Marked; Lymphocytes % (A) 18 %; MCHC 30.4 g/dL (31.0-37.0); MCV 95.3 fL (80.0-100.0); Mean Platelet Volume 9.6; Monocytes # (A) 0.4 k/uL (0-1.0); Monocytes % (A) 8 %; Neutrophils # (A) 3.8 k/uL (1.3-7.7); Neutrophils % (A) 67 %; Platelet Count 260 k/uL (150-450); RBC 3.31 m/uL (3.80-5.40); RDW 15.4 % (11.5-15.5); WBC 5.6 k/uL (3.8-10.6)
[2022-02-24 05:22] LABS: Glucose,Whole Blood 300 mg/dL (70-110)
[2022-02-24 05:24] LABS: ABG Base Excess 14.3 mmol/L; ABG HCO3 37 mmol/L (21-25); ABG Oxygen Saturation 98.4 % (94-97); ABG PCO2 48 mmHg (35-45); ABG PO2 100 mmHg (83-108); ABG TCO2 39 mmol/L (19-24)
[2022-02-24 05:25] LABS: Allen Test Performed? no
[2022-02-24] MEDS: INSULIN ASPART (NovoLOG) 100 UNIT/ML VIAL SQ SCH ×6 (05:36→19:09)
[2022-02-24] MEDS ORDERED: POTASSIUM BICARBONATE/CIT AC 20 MEQ TABLET.EFF NG-TUBE SCH (06:00)
[2022-02-24] MEDS: ALBUTEROL NEBULIZED 2.5 MG/3 ML INHALATION SCH ×4 (07:05→19:06)
[2022-02-24] MEDS: BUDESONIDE 0.5 MG/2 ML NEBU INHALATION SCH ×2 (07:05→19:06)
--- NOTE | 2022-02-24 07:28 | XR ---
EXAMINATION TYPE: XR chest 1V portable DATE OF EXAM: 02/24/2022 6:02 AM COMPARISON: Chest radiograph from one day prior. TECHNIQUE: XR chest 1V portable Portable AP radiograph of the chest.. CLINICAL INDICATION:Female, 66 years old with history of Tube placement; FINDINGS: Lungs/Pleura: Multifocal airspace opacities. No evidence of pneumothorax or pleural effusion. Pulmonary vascularity: Mild pulmonary vascular congestion. Heart/mediastinum: Cardiomediastinal silhouette is enlarged and stable. Musculoskeletal: No acute osseous pathology. Lines/Tubes: Endotracheal tube with distal tip 4.0 cm above the earnestine Nasogastric tube with its distal tip and side-port projecting under the diaphragm. IMPRESSION: 1. Similar multifocal airspace opacities. 2. Stable support tubes.
[2022-02-24] MEDS: PIPERACILLIN-TAZOBACTAM 3.375 GM in SODIUM CHLORIDE 0.9% 100 ML IVPB SCH ×2 (08:02→16:25)
[2022-02-24] MEDS: CHLORHEXIDINE GLUCONATE 15 ML CUP MUCOUS MEM SCH ×2 (08:04→20:19)
[2022-02-24] MEDS: ENOXAPARIN 40 MG/0.4 ML SYRINGE SQ SCH (08:04)
[2022-02-24] MEDS: ATORVASTATIN 20 MG TAB PO SCH (08:04)
[2022-02-24] MEDS: FUROSEMIDE 10 MG/ML 4 ML VIAL IV SCH ×2 (08:05→20:20)
[2022-02-24] MEDS: FLUCONAZOLE IN NACL,ISO-OSM 100 MG in SALINE 1 50ML.BAG IVPB SCH (08:05)
[2022-02-24] MEDS: IMIPRAMINE 25 MG TAB PO SCH ×2 (08:05→20:20)
[2022-02-24] MEDS: ASPIRIN 81 MG PO SCH (08:05)
--- NOTE | 2022-02-24 10:02 | P.PN ---
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 Lifelong nonsmoker. the patient also has had previous history of recurrent UTIs, and she has a permanent Humphrey catheter in place at this point in time. she has had several hospitalizations in the past. I recently saw her in the office and she was quite stable. The patient came into the hospital becausse of altered mentation and some increased shortness of breath. the patient was seen in the ED and she was given a CAT scan of the brain that showed no acute abnormalities. her chest x-ray showed some myocardial megaly and small amount of fluid in the minor fissure and small or effusions. Otherwise other acute abnormalities have been noted. the patient's labs showed a white cell count of 7 with a hemoglobin of 10 and a platelet count of 231. Blood gases showed a pH of 7.42 with a pCO2 of 64 and pO2 113 and this was done and FiO2 of 35% I believe this was done while on the BiPAP. serum bicarb is 41 with a sodium level of 142 and a potassium level of 3.9. Glucose is 105. troponins of 0.04 and a calcium level is at 8.3. urinalysis has been abnorrmal with increased white cell count and the patient has a permanent Humphrey catheter in place due to chronic urinary retention. The is been doing bladder flushes on this patient which is reduced the frequency of UTIs. Marilee most recent UTI was related to Klebsiella pneumoniae on 12/25/2021. Prior to that the patient had other gram-negative infections including infections with Enterobacter. For now, the patient is on IV fluids. She is on a BiPAP at a pressure of 12/6 cm of water with an FiO2 of 35%. In terms of antibiotics, the patient was given IV Rocephin. On today's evaluation of 02/16/2022, the patient is feeling better. She has no new complaints. She spent the night on BiPAP and currently she is on oxygen at 4 L. No chest pain. No nausea or vomiting. She has gram-negative UTI for which is on IV Rocephin. Seems to more alert and awake compared to yesterday and less lethargic. 02/17/2022, the patient is in the intensive care unit, intubated on a mechanical ventilator. Events from yesterday were noted. The patient was essentially stable. She was being fed in the evening and she sustained a massive a spiration. Progressively she became worse and she became hypoxic and hypercapnic and altered and she was very much tachypnea respiratory rate was in the 40s. She was given a trial of BiPAP which she feels and subsequently admitted recommendations to intubate patient and bring her to the intensive care unit. She became also septic and hypotensive during the process. For now, the patient is intubated on a mechanical ventilator. She is currently in the intensive care unit on propofol running at 50 mcg/kg per minute. She is also on assist control mode of mechanical ventilation at the rate of 24 with a tidal volume of 400 and FiO2 of 80% with a PEEP of 15. Blood gases from this morning shows a pH of 7.49 with a pCO2 of 45 and pO2 of 103. This was not an FiO2 of 100% and currently her FiO2 is down to 80%. Meanwhile I reviewed the series of chest x-ray that was done pre-and post intubation. The most recent chest x-ray shows multilobar pneumonia worsened the left perihilar left upper and left lower lobe. ET tube is around 3 cm above the earnestine and it's adequately positioned. The patient does not have any significant air leaks. Since the patient became hypotensive, she was given IV fluids and she received a total of 2 L normal saline bolus and currently her IV fluids running at the rate of 50 mL an hour. Pressors have also been added and the patient is currently on norepinephrine at 0.04 mcg/kg per minute. Her white cell count is at 15 with a hemoglobin of 11.3. BUN is at 13 with a creatinine of 1.1 and sodium is at 135. The patient was also given IV Zosyn covering for aspiration pneumonia. Note that her origin hospitalization was for a gram-negative UTI secondary to Enterobacter and Klebsiella and both of these microorganisms are sensitive to Zosyn. As such, the patient has been On single agent Zosyn. The patient is on Lovenox for DVT prophylaxis. The patient is also on NovoLog sliding scale coverage. Blood sugars are in the 200s range at this point in time. Patient was reevaluated on 02/18/22, patient remains in the ICU, intubated and mechanically ventilated. She is on assist control rate of 16 per volume 375 FiO2 40% PEEP of 15. However after evaluating the patient, I changed her ventilator settings to FiO2 of 45%, PEEP down to 12, respiration down to 12. And tidal volume was increased to 400. Patient had an ABG earlier today showed a pO2 of 114 pCO2 58 pH of 7.40 and looking at the bicarb on her initial presentation, it was relatively high, I believe the patient may have some underlying hypercapnia, and her pCO2 is likely in the high 50s normally. Patient is on propofol at 50 mcg/kg/m, she went off norepinephrine earlier this morning, she has IV fluid at 50 mL per hour in the form of 0.9 normal saline. She will be started on tube feeding today. Patient remains on Zosyn and vancomycin, she continues to have bilateral infiltrates consistent with aspiration pneumonia. WBC count today is 13.3 hemoglobin is 9.2. Basic metabol ic profile is normal bicarb is 34.. Profile is normal. Blood sugar is 247. Urine cultures are positive for Enterobacter cloacae and Klebsiella pneumoniae and these cultures are from 02/14/22. Reevaluated today on 02/19/22, patient remains in the ICU, remains intubated and mechanically ventilated. She is on assist control of 12 tidal volume 400 FiO2 40% and PEEP of 5 ABG showed a pO2 of 91 pCO2 61 pH of 7.41. Patient is not requiring any pressors. Patient failed the weaning yesterday, she went off sedation, however she became tachypneic, and did not follow any commands or instructions. Had to be placed back on sedation and continue mechanical ventilation. Today I plan to do the same and hold sedation and assessment of status at least today. She is still on propofol at 40 mcg/kg/m IV fluid at KVO vital HPI at 30 mL per hour. Chest x-ray continues show bilateral infiltrates. Patient will remain on antibiotics however I will discontinue vancomycin. No ventilator changes were made today. Patient remains on Zosyn but off vancomycin today. Remains on Lasix at 40 mg IV push daily. Remains on Joshua dilators and on GI and DVT prophylaxis. Reevaluated today on 02/20/22, remains intubated and mechanically ventilated. He is on assist control rate of 12 tidal volume 400 FiO2 40% PEEP of 12. I cut down her PEEP down to 8. ABG showed a pO2 of 107 pCO2 61 pH of 7.43. Patient remains on propofol presently at 30 mcg/kg/m, IV fluid at KVO, Zosyn for presumptive aspiration pneumonia. Remains on vital HPI 39 mL per hour. Patient did have sedation interruption yesterday, however still could not follow any instructions, opens eyes but does not follow any instructions. Chest x-ray continues show bilateral infiltrates consistent with aspiration pneumonia. Labs today showed WBC count of 7.2 hemoglobin 8.9. Basic metabolic profile is normal, renal profile is normal. Bicarb is 38 indicative of chronic hypercapnia and metabolic compensation Reevaluated today on 02/21/22, patient remains intubated and mechanically ventilated. Not much of a change in the last 24 hours, patient could not stay off sedation to long as she became tachycardic, tachypneic, and this was done y esterday. Had to be placed back on propofol obviously the patient could be she is on assist control rate of 12 tidal volume 400 FiO2 40% PEEP of 8. ABG showed a pO2 of 93 pCO2 60 pH of 7.44. Patient is on propofol at 30 mcg/kg/m, also on normal saline at 20 mL per hour. Her chest x-ray is showing slight improvement. Nonetheless, the patient, and today I recommended surgical consultation with general surgery for possible tracheostomy and PEG tube placement. Propofol is presently 50 mg/m. I cut it down to 20 mcg/kg/m. Feeding ogles[place], the patient is on vital HPI 39 mL per hour. Patient remains empirically on antibiotics for presumptive aspiration pneumonia. Again her chest x-ray is showing slight improvement, but not back to normal Reevaluated today on 02/22/2022, patient remains in the ICU, intubated and mechanically ventilated. She is on assist control rate of 12 tidal volume 400 FiO2 40% PEEP was 8 and I cut it down to 5. Patient had an ABG this morning showed a pO2 of 99 pCO2 59 pH of 7.44. Chest x-ray is showing improvement but not complete clearance of her pneumonia. Patient remains on Zosyn. Today the patient is off propofol from earlier this morning, and she seems to be very calm, she is awake, seems to be slow but generally weak, and she is able to follow instructions. Considering the improvement in her mental status today, I recommended that we hold on tracheostomy and PEG tube placement, patient will be given a trial of pressure support and CPAP. And based on that may decide further weaning of the pressure support, and possibly extubate to BiPAP if pos sible. In the meantime we'll continue to hold the tube feeding, continue to hold all sedations and all narcotics. And again hoping to cut down the pressure support to 10 or 8, and if she continues to tolerate this may consider x-raying the patient to BiPAP. ABG after 2 hours on pressure support and CPAP showed a pO2 of 95 pCO2 57 pH of 7.46. WBC count today is 6.4 hemoglobin is 9.4 basic metabolic profile is normal renal profile is normal Reevaluated today on 02/23/22, patient was extubated yesterday, however about 5 hours later, patient could not tolerate BiPAP, and she was desaturating, patient was getting a bit more restless, I was made aware about her condition, and I recommended that he intubation. Patient is back on the ventilator, assist control rate of 18 cut it down to 16 volume 400 FiO2 60% cut it down to 50% and PEEP is at 8. ABG this morning showed a pO2 of 95 pCO2 46 pH of 7.50. Chest x- ray continues to show bilateral great, possibly some component of interstitial e mandeep. Her WBC count is 7.2 hemoglobin 9.5. Basic metabolic profile is normal, renal profile is normal, blood sugar is 228. Patient remains on antibiotics in the form of Zosyn for aspiration pneumonia remains on enteral feeding, and that seems to be fairly well tolerated. Lasix was increased today to 40 mg IV push every 12 hours. Patient is on updrafts, she is also on Pulmicort, Lovenox 40 mg subcu daily, and she is on her usual home meds including imipramine 25 mg by mouth twice a day patient is hemodynamically stable, not requiring any pressors. Reevaluated today on 02/24/22, patient remains, intubated and mechanically ventilated. Patient is on assist control rate of 16, volume 400 FiO2 50% I cut it down to 45%, PEEP remains at 8. ABG showed a pO2 of 100 pCO2 48 pH of 7.50. Patient is on propofol at 20 mcg/kg/m. She is not requiring any pressors, she is hemodynamically stable. Remains on Diflucan and on Zosyn. Today we added Reglan for diminished bowel sounds, and no output noted in the colostomy. Patient is on vital HP , rate at 52 mL per hour. Chest x-ray today continues to show bilateral infiltrates, no major change in her infiltrates since admission. CBC showed WBC count of 5.6 hemoglobin 9.6, basic metabolic profile is normal. Blood sugar is running a bit high, hence her Levemir dose of insulin was increased to 35 units per day. Still on sliding scale coverage, may consider insulin drip if she continues to run high sugars patient remains on updrafts, remains on. Lovenox. She is on Lasix 40 mg IV push twice a day, fluconazole, Reglan, and Zosyn. Blood cultures have been negative since admission. Urine cultures were positive for Enterobacter and Klebsiella pneumoniae sputum cultures positive for Chaya albicans. Patient was extubated the day before yesterday, however she failed extubation after few hours although she was extubated to BiPAP, and at this point I believe the patient will have to be considered seriously for tracheostomy and PEG tube placement however the family is undecided. Objective - Vital Signs Vital signs: Vital Signs Temp 98.6 F 02/24/22 08:00 Pulse 82 02/24/22 09:00 Resp 16 02/24/22 09:00 BP 103/50 02/24/22 09:00 Pulse Ox 99 02/24/22 09:00 FiO2 45 02/24/22 09:25 Intake & Output 02/23/22 02/24/22 02/24/22 18:59 06:59 18:59 Intake Total 1226.876 585.440 253 Output Total 1110 1085 470 Balance 116.876 -499.560 -217 Weight 110.8 kg Intake: IV 298 376 69 Piperacillin-Tazobactam 3 100 .375 gm In Sodium Chloride 0.9% 100 ml @ 25 mls/hr IVPB Q8HR [facility] Rx# :[id number] Sodium Chloride 0.9% 1, 260 240 60 000 ml @ 10 mls/hr IV . Q24H [facility] Rx#:[id number] pressure bag 38 36 9 Intake, IV Titration 196.876 157.440 Amount propofoL 1,000 mg In 196.876 157.440 Empty Bag 1 bag @ 5 MCG/ KG/MIN 3.27 mls/hr IV . Q24H [facility] Rx#:[id number] Tube Feeding 592 52 104 Other 140 80 Output: Urine 1110 1085 470 Other: Voiding Method Indwelling Catheter Indwelling Catheter Indwelling Catheter ABP, PAP, CO, CI - Last Documented Arterial Blood Pressure 108/50 - Exam GENERAL EXAM: Revealed a 66-year-old female, intubated, sedated, on propofol, 20 mcg/kg/m today HEAD: Normocephalic. Endotracheal tube and orogastric tube are intact. EYES: PERRLA, EOMI, nonicteric.. NOSE: Normal nasal mucosa. Unremarkable. THROAT: No erythema or exudates. Orogastric tube is intact. NECK: Short obese neck, no neck masses no JVD no stridor. CHEST: Symmetrical chest expansion noted chest wall tenderness. LUNGS: Crackles at the base Persist CVS: Distant S1 and S2, no S3 gallop, no murmur. ABDOMEN: Obese soft nontender no megaly no rebound no guarding. Positive bowel sounds. Colostomy is intact, however output noted today and the colostomy bag. SKIN: No rashes CENTRAL NERVOUS SYSTEM: Could not assess today, patient is sedated on propofol. EXTREMITIES: No clubbing edema or cyanosis. - Labs CBC & Chem 7: 02/24/22 04:20 02/24/22 04:20 Labs: Abnormal Lab Results - Last 24 Hours (Table) 02/23/22 02/23/22 02/23/22 Range/Units 11:42 17:56 20:06 RBC (3.80-5.40) m/uL Hgb (11.4-16.0) gm/dL Hct (34.0-46.0) % MCHC (31.0-37.0) g/dL ABG pH (7.35-7.45) ABG pCO2 (35-45) mmHg ABG HCO3 (21-25) mmol/L ABG Total CO2 (19-24) mmol/L ABG O2 Saturation (94-97) % Carbon Dioxide (22-30) mmol/L BUN (7-17) mg/dL Glucose (74-99) mg/dL POC Glucose (mg/dL) 228 H 272 H 264 H (70-110) mg/dL Calcium (8.4-10.2) mg/dL 02/23/22 02/24/22 02/24/22 Range/Units 22:57 04:20 04:20 RBC 3.31 L (3.80-5.40) m/uL Hgb 9.6 L (11.4-16.0) gm/dL Hct 31.6 L (34.0-46.0) % MCHC 30.4 L (31.0-37.0) g/dL ABG pH (7.35-7.45) ABG pCO2 (35-45) mmHg ABG HCO3 (21-25) mmol/L ABG Total CO2 (19-24) mmol/L ABG O2 Saturation (94-97) % Carbon Dioxide 37 H (22-30) mmol/L BUN 33 H (7-17) mg/dL Glucose 299 H (74-99) mg/dL POC Glucose (mg/dL) 275 H (70-110) mg/dL Calcium 8.3 L (8.4-10.2) mg/dL 02/24/22 02/24/22 Range/Units 05:19 05:23 RBC (3.80-5.40) m/uL Hgb (11.4-16.0) gm/dL Hct (34.0-46.0) % MCHC (31.0-37.0) g/dL ABG pH 7.50 H (7.35-7.45) ABG pCO2 48 H (35-45) mmHg ABG HCO3 37 H (21-25) mmol/L ABG Total CO2 39 H (19-24) mmol/L ABG O2 Saturation 98.4 H (94-97) % Carbon Dioxide (22-30) mmol/L BUN (7-17) mg/dL Glucose (74-99) mg/dL POC Glucose (mg/dL) 300 H (70-110) mg/dL Calcium (8.4-10.2) mg/dL Assessment and Plan Assessment: Impression: Acute hypoxic respiratory failure secondary to aspiration pneumonia Acute urinary tract infection secondary Enterobacter cloacae and Klebsiella pn eumoniae treated with Zosyn. Acute toxic metabolic encephalopathy secondary to sepsis and aspiration pneumonia Hypotension secondary to sepsis, and suspect septic shock since the patient required low-dose pressors. However she is not on any pressors at present. Chronic diastolic congestive heart failure remains on diuretics Lasix 40 mg IV push twice a day. History of aortic stenosis, evaluated prior to this for possible TAVR Olivopontocerebellar demyelination obesity hypoventilation syndrome Type 2 diabetes. Suspect obstructive sleep apnea syndrome, on home CPAP. Suspect chronic hypercapnic respiratory failure secondary to obstructive sleep apnea and obesity/hypoventilation syndrome History of sarcoidosis. Medical debility, patient is on electric wheelchair. Failed extubation on 02/22/2022. Patient was extubated to BiPAP, lasted about 5 hours Recommendation: Continue ventilatory support, Family is yet undecided about tracheostomy and PEG tube placement, suggested that the family comes in to discuss her status, apparently her and her daughter are both making decisions on her behalf, and we need to discuss with both of them that recommendations, his either would go with tracheostomy and PEG tube placement or possibly try extubation again and if she fails not to reintubate. Or even consider comfort care measures if the family wishes. Patient is going be extremely difficult to wean and extubate successfully. Patient was seen by surgery for possible tracheostomy and PEG, however the family is yet and decided whether to proceed with this or not. Continue sedation. Continue nutritional support. Patient is on enteral feeding. Added Reglan today. Patient has poor colostomy output, but her abdominal findings are benign on physical examination Continue Zosyn for aspiration pneumonia. And for UTI. Continue GI and DVT prophylaxis. Patient is critically ill, critical care time is over 30 minutes Prognosis is poor Time with Patient: Greater than 30
[2022-02-24] MEDS ORDERED: PANTOPRAZOLE 40 MG/10 ML VIAL IVP SCH (10:15)
[2022-02-24] MEDS: METOCLOPRAMIDE 5 MG/ML 2 ML VIAL IVP SCH ×2 (12:09→19:09)
[2022-02-24 12:15] LABS: Glucose,Whole Blood 267 mg/dL (70-110)
--- NOTE | 2022-02-24 13:58 | P.PN ---
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 Attempts for weaning has been unsuccessful from the vent. Nutrition is maintained via orogastric tube. ROS: No reports of nausea and vomiting. Temperature max in 24 hours of 100.5. Mechanical ventilation. PHYSICAL EXAM: VITAL SIGNS: Reviewed CONSTITUTIONAL: Well developed and in no acute distress. EYES: Conjuctivae without sclera icterus. Extraocular movements grossly intact. HEAD, EARS, NOSE, THROAT: Moist buccal mucosa. Head is atraumatic, normocephalic. Hears conversational speech. No nasal drainage. RESPIRATORY: On mechanical ventilation. CARDIOVASCULAR: Palpable 2+ radial pulses. ABDOMEN: Protuberant. MUSCULOSKELETAL: No gross deformity of the lower extremities noted. No clubb ing. No cyanosis. SKIN: Good skin turgor. Well perfused. NEUROLOGIC: Cranial nerves II through XII grossly intact. No focal or lateralizing signs. PSYCH: Open eyes spontaneously. CLINICAL LABS: Reviewed. WBC normal. ASSESSMENT: 1. Metabolic encephalopathy 2. Sepsis 3. Acute hypoxemic respiratory failure on mechanical ventilation 4. Morbid obesity and excess calories 5. Inadequate protein intake due to mechanical ventilation 6. Moderate protein malnutrition PLAN: 1. At this time, pending family's decision to proceed with tracheostomy and gastrostomy tube placement. 2. Maintain current nutrition with orogastric tube Objective - Vital Signs Vital signs: Vital Signs Temp 98.6 F 02/24/22 08:00 Pulse 88 02/24/22 11:15 Resp 16 02/24/22 11:00 BP 88/46 02/24/22 11:00 Pulse Ox 99 02/24/22 11:00 FiO2 45 02/24/22 11:00 Intake & Output 02/23/22 02/24/22 02/24/22 18:59 06:59 18:59 Intake Total 1226.876 585.440 468.4 Output Total 1110 1085 940 Balance 116.876 -499.560 -471.6 Weight 110.8 kg Intake: IV 298 376 115 Piperacillin-Tazobactam 3 100 .375 gm In Sodium Chloride 0.9% 100 ml @ 25 mls/hr IVPB Q8HR [facility] Rx# :[id number] Sodium Chloride 0.9% 1, 260 240 100 000 ml @ 10 mls/hr IV . Q24H [facility] Rx#:[id number] pressure bag 38 36 15 Intake, IV Titration 196.876 157.440 65.4 Amount propofoL 1,000 mg In 196.876 157.440 65.4 Empty Bag 1 bag @ 5 MCG/ KG/MIN 3.27 mls/hr IV . Q24H [facility] Rx#:[id number] Tube Feeding 592 52 208 Other 140 80 Output: Urine 1110 1085 940 Other: Voiding Method Indwelling Catheter Indwelling Catheter Indwelling Catheter ABP, PAP, CO, CI - Last Documented Arterial Blood Pressure 107/50 - Labs CBC & Chem 7: 02/24/22 04:20 02/24/22 04:20 Labs: Abnormal Lab Results - Last 24 Hours (Table) 02/23/22 02/23/22 02/23/22 Range/Units 17:56 20:06 22:57 RBC (3.80-5.40) m/uL Hgb (11.4-16.0) gm/dL Hct (34.0-46.0) % MCHC (31.0-37.0) g/dL ABG pH (7.35-7.45) ABG pCO2 (35-45) mmHg ABG HCO3 (21-25) mmol/L ABG Total CO2 (19-24) mmol/L ABG O2 Saturation (94-97) % Carbon Dioxide (22-30) mmol/L BUN (7-17) mg/dL Glucose (74-99) mg/dL POC Glucose (mg/dL) 272 H 264 H 275 H (70-110) mg/dL Calcium (8.4-10.2) mg/dL 02/24/22 02/24/22 02/24/22 Range/Units 04:20 04:20 05:19 RBC 3.31 L (3.80-5.40) m/uL Hgb 9.6 L (11.4-16.0) gm/dL Hct 31.6 L (34.0-46.0) % MCHC 30.4 L (31.0-37.0) g/dL ABG pH (7.35-7.45) ABG pCO2 (35-45) mmHg ABG HCO3 (21-25) mmol/L ABG Total CO2 (19-24) mmol/L ABG O2 Saturation (94-97) % Carbon Dioxide 37 H (22-30) mmol/L BUN 33 H (7-17) mg/dL Glucose 299 H (74-99) mg/dL POC Glucose (mg/dL) 300 H (70-110) mg/dL Calcium 8.3 L (8.4-10.2) mg/dL 02/24/22 Range/Units 05:23 RBC (3.80-5.40) m/uL Hgb (11.4-16.0) gm/dL Hct (34.0-46.0) % MCHC (31.0-37.0) g/dL ABG pH 7.50 H (7.35-7.45) ABG pCO2 48 H (35-45) mmHg ABG HCO3 37 H (21-25) mmol/L ABG Total CO2 39 H (19-24) mmol/L ABG O2 Saturation 98.4 H (94-97) % Carbon Dioxide (22-30) mmol/L BUN (7-17) mg/dL Glucose (74-99) mg/dL POC Glucose (mg/dL) (70-110) mg/dL Calcium (8.4-10.2) mg/dL
[2022-02-24 16:15] VITALS: TEMP 99.7
[2022-02-24] MEDS ORDERED: LORazepam 2 MG/ML INJ IV PRN (18:11)
[2022-02-24] MEDS ORDERED: ONDANSETRON 4 MG/2 ML VIAL IVP PRN (18:11)
[2022-02-24] MEDS ORDERED: ATROPINE OPHTH SOLN 1% 5ML BTL SUBLINGUAL PRN (18:11)
[2022-02-24] MEDS ORDERED: MORPHINE SULFATE 2 MG/ML SYRINGE IV PRN (18:11)
[2022-02-24] MEDS ORDERED: SCOPOLAMINE 1 MG/72 HR PATCH TRANSDERM SCH (18:15)
[2022-02-24] MEDS ORDERED: MORPHINE SULFATE (100 MG/2 ML) 100 MG in SODIUM CHLORIDE 0.9% 100 ML IV SCH (18:15)
[2022-02-24] MEDS: MORPHINE SULFATE 4 MG/ML SYRINGE IV PRN ×2 (19:06→19:32)
[2022-02-24] MEDS ORDERED: INSULIN DETEMIR (LEVEMIR) 100 UNIT/ML SYR SQ SCH (21:00)
--- NOTE | 2022-02-24 22:49 | P.PN ---
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 Lifelong nonsmoker. the patient also has had previous history of recurrent UTIs, and she has a permanent Humphrey catheter in place at this point in time. she has had several hospitalizations in the past. I recently saw her in the office and she was quite stable. The patient came into the hospital becausse of altered mentation and some increased shortness of breath. the patient was seen in the ED and she was given a CAT scan of the brain that showed no acute abnormalities. her chest x-ray showed some myocardial megaly and small amount of fluid in the minor fissure and small or effusions. Otherwise other acute abnormalities have been noted. the patient's labs showed a white cell count of 7 with a hemoglobin of 10 and a platelet count of 231. Blood gases showed a pH of 7.42 with a pCO2 of 64 and pO2 113 and this was done and FiO2 of 35% I believe this was done while on the BiPAP. serum bicarb is 41 with a sodium level of 142 and a potassium level of 3.9. Glucose is 105. troponins of 0.04 and a calcium level is at 8.3. urinalysis has been abnorrmal with increased white cell count and the patient has a permanent Humphrey catheter in place due to chronic urinary retention. The is been doing bladder flushes on this patient which is reduced the frequency of UTIs. Marilee most recent UTI was related to Klebsiella pneumoniae on 12/25/2021. Prior to that the patient had other gram-negative infections including infections with Enterobacter. For now, the patient is on IV fluids. She is on a BiPAP at a pressure of 12/6 cm of water with an FiO2 of 35%. In terms of antibiotics, the patient was given IV Rocephin. On today's evaluation of 02/16/2022, the patient is feeling better. She has no new complaints. She spent the night on BiPAP and currently she is on oxygen at 4 L. No chest pain. No nausea or vomiting. She has gram-negative UTI for which is on IV Rocephin. Seems to more alert and awake compared to yesterday and less lethargic. 02/17/2022, the patient is in the intensive care unit, intubated on a mechanical ventilator. Events from yesterday were noted. The patient was essentially stable. She was being fed in the evening and she sustained a massive aspiration. Progressively she became worse and she became hypoxic and hypercapnic and altered and she was very much tachypnea respiratory rate was in the 40s. She was given a trial of BiPAP which she feels and subsequently admitted recommendations to intubate patient and bring her to the intensive care unit. She became also septic and hypotensive during the process. For now, the patient is intubated on a mechanical ventilator. She is currently in the intensive care unit on propofol running at 50 mcg/kg per minute. She is also on assist control mode of mechanical ventilation at the rate of 24 with a tidal volume of 400 and FiO2 of 80% with a PEEP of 15. Blood gases from this morning shows a pH of 7.49 with a pCO2 of 45 and pO2 of 103. This was not an FiO2 of 100% and currently her FiO2 is down to 80%. Meanwhile I reviewed the series of chest x-ray that was done pre-and post intubation. The most recent chest x-ray shows multilobar pneumonia worsened the left perihilar left upper and left lower lobe. ET tube is around 3 cm above the earnestine and it's adequately positioned. The patient does not have any significant air leaks. Since the patient became hypotensive, she was given IV fluids and she received a total of 2 L normal saline bolus and currently her IV fluids running at the rate of 50 mL an hour. Pressors have also been added and the patient is currently on norepinephrine at 0.04 mcg/kg per minute. Her white cell count is at 15 with a hemoglobin of 11.3. BUN is at 13 with a creatinine of 1.1 and sodium is at 135. The patient was also given IV Zosyn covering for aspiration pneumonia. Note that her origin hospitalization was for a gram-negative UTI secondary to Enterobacter and Klebsiella and both of these microorganisms are sensitive to Zosyn. As such, the patient has been On single agent Zosyn. The patient is on Lovenox for DVT prophylaxis. The patient is also on NovoLog sliding scale coverage. Blood sugars are in the 200s range at this point in time. Patient was reevaluated on 02/17/22, patient remains in the ICU, intubated and mechanically ventilated. She is on assist control rate of 16 per volume 375 FiO2 40% PEEP of 15. However after evaluating the patient, I changed her ventilator settings to FiO2 of 45%, PEEP down to 12, respiration down to 12. And tidal volume was increased to 400. Patient had an ABG earlier today showed a pO2 of 114 pCO2 58 pH of 7.40 and looking at the bicarb on her initial presentation, it was relatively high, I believe the patient may have some underlying hypercapnia, and her pCO2 is likely in the high 50s normally. Patient is on propofol at 50 mcg/kg/m, she went off norepinephrine earlier this morning, she has IV fluid at 50 mL per hour in the form of 0.9 normal saline. She will be started on tube feeding today. Patient remains on Zosyn and vancomycin, she continues to have bilateral infiltrates consistent with aspiration pneumonia. WBC count today is 13.3 hemoglobin is 9.2. Basic metab olic profile is normal bicarb is 34.. Profile is normal. Blood sugar is 247. Urine cultures are positive for Enterobacter cloacae and Klebsiella pneumoniae and these cultures are from 02/14/22. 02/18/2022 Patient is seen in follow-up this morning continues to be on mechanical vent with an FiO2 of 45% and PEEP is 12. Patient continues on sedation of propofol and also continues with IV Zosyn and vancomycin for aspiration pneumonia. Chest xray shows bilateral patchy densities and left pleural effusion. Patient is off pressor support and some adjustments to the vent being made. Started enteral nutrition and blood sugars remain mildly elevated. Recommend to continue with gentle IV fluids and accuchecks and sliding scale achs. long acting as well. Will adjust accordingly. WBC trending down and patient is afebrile. 02/19/2022 Patient is seen this morning continues to be in the ICU on mechanical vent and FiO2 is 40% with a PEEP of 12. Patient continues on sedation and also maintained on 40 mg of IV Lasix daily along with IV Zosyn and will continue. Vancomycin discontinued. Blood sugars mildly elevated and will increase long- acting insulin and continue with sliding scale and Accu-Cheks before meals and at bedtime and as needed. Chest x-ray today shows unchanged cardiomediastinal silhouette with persistent bilateral pulmonary patchy opacification is slightly improved in the right upper lung zone an NG tube is noted. WBC is trending down at 10.0 hemoglobin is stable at 8.4. As mentioned previously blood sugars are elevated and will increase insulins. Patient is currently afebrile. Sputum cultures pending at this time and blood cultures remain negative. Urine culture showing Enterobacter Cloacae along with Klebsiella pneumonia. 02/20/2022 Patient is evaluated today during a sedation holiday and does not tolerate very well. Patient to continue on Propofol with ongoing assessment for weaning parameters. Patient is not on pressor support. Patient continues on vent with FI02 of 40%. Patient is also on IV antibiotics and sputum culture showing chapin albicans and will add diflucan. Recommend follow up on chest xray and repeat am labs ordered. Follow up on magnesium and replace per protocol. Will increase long acting insulin and recommend continued monitoring. Patient is afebrile. 02/21/2022 Patient is seen this morning in the ICU and continues to undergo sedation holidays and will likely need possible peg and trach placement. General surgery was consulted. Patient remains on an FI02 of 40% and peep is 8. Blood sugars remain elevated and have increased long acting up to 25 units and will continue sliding scale. Patient is afebrile. Sputum culture showing candid albicans and have added diflucan. Patient also remains on IV zosyn and will continue. Overall prognosis remains guarded. 02/22/22 Patient is seen today and continues in the ICU and off sedation and on CPAP mode. Patient is following simple commands and chest xray shows some improvement in aeration. ABG improved and pulmonary considering extubation as patient is tolerating well. Surgery following and was having plans of peg and trach placement today and placed on hold. Patient is NPO and will continue for now and follow up once mentation improves. Patient is afebrile and will continue with IV abx for aspiration pneumonia. Diflucan as well. Recommend follow up xray and labs in the am. 02/23/2022 Patient is currently in MICU. Intubated. Patient is able to open her eyes with verbal commands. Patient did tolerate extubation/on BiPAP about 5 hours yesterday. She became agitated and hypoxic and tachypneic. Patient placed back on assist control. Today chest x-ray showed correlate for congestive heart. Pneumonia not excluded. Lasix dose increased to every 12 hours. Laboratory data showed WBC 7.2 hemoglobin 9.5 and platelets 263 Sodium 140 potassium 3.3 chloride 100 bicarb is 38 BUN 26 and creatinine 0.96 and blood sugar 195. Patient is being current on antibiotics in the form of Zosyn. Review of systems: Unable to obtain Current medications reviewed. Objective - Vital Signs Vital signs: Vital Signs Temp 99.5 F 02/23/22 12:00 Pulse 90 02/23/22 15:42 Resp 16 02/23/22 15:00 BP 98/50 02/23/22 15:00 Pulse Ox 97 02/23/22 15:00 FiO2 50 02/23/22 15:23 Intake & Output 02/22/22 02/23/22 02/23/22 18:59 06:59 18:59 Intake Total 590 862.04 899.109 Output Total 1434 1312 1010 Balance -844 -449.96 -110.891 Weight 115 kg 112.6 kg Intake: IV 440 376 230 Piperacillin-Tazobactam 3 200 100 .375 gm In Sodium Chloride 0.9% 100 ml @ 25 mls/hr IVPB Q8HR [facility] Rx# :[id number] Sodium Chloride 0.9% 1, 210 240 200 000 ml @ 10 mls/hr IV . Q24H [facility] Rx#:[id number] pressure bag 30 36 30 Intake, IV Titration 150 61.04 109.109 Amount Fluconazole in NaCl,Iso- 50 Osm 100 mg In Saline 1 50ml.bag @ 50 mls/hr IVPB DAILY [facility] Rx#:[id number] propofoL 1,000 mg In 100 61.04 109.109 Empty Bag 1 bag @ 5 MCG/ KG/MIN 3.27 mls/hr IV . Q24H [facility] Rx#:[id number] Tube Feeding 335 450 Other 90 110 Output: Urine 1434 1312 1010 Other: Voiding Method Indwelling Catheter Indwelling Catheter Indwelling Catheter ABP, PAP, CO, CI - Last Documented Arterial Blood Pressure 100/47 - Exam Physical exam: GENERAL EXAM: a 66-year-old female, morbidly obese, off sedation and on CPAP mode and attempting weaning trials and currently considering extubation with a vent setting of 40% FI02 and peep is 5 HEENT: Normocephalic. PERRLA, Endotracheal tube and orogastric tube are intact. nares are patent NECK: No masses, no JVD. Short obese neck LUNGS: Symmetrical chest expansion, diminished breath sounds bilaterally with some crackles at the bases. No rhonchi no wheezes. CARDIO: S1 and S2 muffled with no audible murmur, regular rhythm. ABDOMEN: soft, obese, non-distended, normal bowel sounds, no guarding or rigidity. SKIN: No rashes Neurological: Cannot assess completely, patient is calm and responding to simple commands EXTREMITIES: No clubbing edema or cyanosis. generalized edema noted throughout - Labs CBC & Chem 7: 02/24/22 04:20 02/24/22 04:20 Labs: Abnormal Lab Results - Last 24 Hours (Table) 02/22/22 02/22/22 02/22/22 Range/Units 17:25 18:37 19:24 RBC (3.80-5.40) m/uL Hgb (11.4-16.0) gm/dL Hct (34.0-46.0) % MCHC (31.0-37.0) g/dL Lymphocytes # (1.0-4.8) k/uL ABG pH 7.12 L* (7.35-7.45) ABG pCO2 >120 H* 56 H (35-45) mmHg ABG pO2 125 H 157 H (83-108) mmHg ABG HCO3 37 H (21-25) mmol/L ABG Total CO2 38 H (19-24) mmol/L ABG O2 Saturation 99.4 H (94-97) % Potassium (3.5-5.1) mmol/L Carbon Dioxide (22-30) mmol/L BUN (7-17) mg/dL Glucose (74-99) mg/dL POC Glucose (mg/dL) 173 H (70-110) mg/dL 02/22/22 02/22/22 02/23/22 Range/Units 20:25 23:31 04:00 RBC 3.30 L (3.80-5.40) m/uL Hgb 9.5 L (11.4-16.0) gm/dL Hct 31.1 L (34.0-46.0) % MCHC 30.5 L (31.0-37.0) g/dL Lymphocytes # 0.9 L (1.0-4.8) k/uL ABG pH (7.35-7.45) ABG pCO2 (35-45) mmHg ABG pO2 (83-108) mmHg ABG HCO3 (21-25) mmol/L ABG Total CO2 (19-24) mmol/L ABG O2 Saturation (94-97) % Potassium (3.5-5.1) mmol/L Carbon Dioxide (22-30) mmol/L BUN (7-17) mg/dL Glucose (74-99) mg/dL POC Glucose (mg/dL) 214 H 216 H (70-110) mg/dL 02/23/22 02/23/22 02/23/22 Range/Units 04:00 05:16 05:21 RBC (3.80-5.40) m/uL Hgb (11.4-16.0) gm/dL Hct (34.0-46.0) % MCHC (31.0-37.0) g/dL Lymphocytes # (1.0-4.8) k/uL ABG pH 7.52 H (7.35-7.45) ABG pCO2 46 H (35-45) mmHg ABG pO2 (83-108) mmHg ABG HCO3 38 H (21-25) mmol/L ABG Total CO2 39 H (19-24) mmol/L ABG O2 Saturation 98.4 H (94-97) % Potassium 3.3 L (3.5-5.1) mmol/L Carbon Dioxide 38 H (22-30) mmol/L BUN 26 H (7-17) mg/dL Glucose 195 H (74-99) mg/dL POC Glucose (mg/dL) 238 H (70-110) mg/dL 02/23/22 Range/Units 11:42 RBC (3.80-5.40) m/uL Hgb (11.4-16.0) gm/dL Hct (34.0-46.0) % MCHC (31.0-37.0) g/dL Lymphocytes # (1.0-4.8) k/uL ABG pH (7.35-7.45) ABG pCO2 (35-45) mmHg ABG pO2 (83-108) mmHg ABG HCO3 (21-25) mmol/L ABG Total CO2 (19-24) mmol/L ABG O2 Saturation (94-97) % Potassium (3.5-5.1) mmol/L Carbon Dioxide (22-30) mmol/L BUN (7-17) mg/dL Glucose (74-99) mg/dL POC Glucose (mg/dL) 228 H (70-110) mg/dL Assessment and Plan Assessment: Assessment: Acute hypoxic respiratory failure secondary to aspiration pneumonia requiring mechanical ventilation, Patient was extubated on 02/22/2022 for about 5 hours and started back on assist control. Acute urinary tract infection secondary Enterobacter cloacae and Klebsiella pneumoniae Acute toxic metabolic encephalopathy secondary to sepsis and aspiration pneumonia Hypotension secondary to sepsis, with possible septic shock as patient was i nitially on pressor support, off pressors Chronic diastolic congestive heart failure History of Olivopontocerebellar demyelination Possible obesity hypoventilation syndrome diabetes mellitus, type 2 uncontrolled with hyperglycemia. obstructive sleep apnea syndrome, on CPAP. Possible chronic hypercapnic respiratory failure secondary to obstructive sleep apnea and obesity/hypoventilation syndrome History of sarcoidosis. GI prophylaxis DVT prophylaxis Full code Plan: Recommend to continue with close monitoring in the ICU with sedation holidays and weaning parameters being assessed. Patient remains on mechanical vent at 40% FiO2 and peep is 5. Currently on assist control . consult to surgery for peg and trach placement currently on hold Until further family discussion and final decision.. Recommend to continue with accuchecks achs and have increased long acting insulin to 25 units at hs for the elevated blood sugars Continue antibiotics in the form of Zosyn and diflucan REcommend to continue with IV lasix BID Recommend follow up chest xray and labs in the am, replace electric per p rotocol Overall prognosis is extremely guarded at this time. Time with Patient: Greater than 30
--- NOTE | 2022-02-24 22:52 | P.PN ---
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 Lifelong nonsmoker. the patient also has had previous history of recurrent UTIs, and she has a permanent Humphrey catheter in place at this point in time. she has had several hospitalizations in the past. I recently saw her in the office and she was quite stable. The patient came into the hospital becausse of altered mentation and some increased shortness of breath. the patient was seen in the ED and she was given a CAT scan of the brain that showed no acute abnormalities. her chest x-ray showed some myocardial megaly and small amount of fluid in the minor fissure and small or effusions. Otherwise other acute abnormalities have been noted. the patient's labs showed a white cell count of 7 with a hemoglobin of 10 and a platelet count of 231. Blood gases showed a pH of 7.42 with a pCO2 of 64 and pO2 113 and this was done and FiO2 of 35% I believe this was done while on the BiPAP. serum bicarb is 41 with a sodium level of 142 and a potassium level of 3.9. Glucose is 105. troponins of 0.04 and a calcium level is at 8.3. urinalysis has been abnorrmal with increased white cell count and the patient has a permanent Humphrey catheter in place due to chronic urinary retention. The is been doing bladder flushes on this patient which is reduced the frequency of UTIs. Marilee most recent UTI was related to Klebsiella pneumoniae on 12/25/2021. Prior to that the patient had other gram-negative infections including infections with Enterobacter. For now, the patient is on IV fluids. She is on a BiPAP at a pressure of 12/6 cm of water with an FiO2 of 35%. In terms of antibiotics, the patient was given IV Rocephin. On today's evaluation of 02/16/2022, the patient is feeling better. She has no new complaints. She spent the night on BiPAP and currently she is on oxygen at 4 L. No chest pain. No nausea or vomiting. She has gram-negative UTI for which is on IV Rocephin. Seems to more alert and awake compared to yesterday and less lethargic. 02/17/2022, the patient is in the intensive care unit, intubated on a mechanical ventilator. Events from yesterday were noted. The patient was essentially stable. She was being fed in the evening and she sustained a massive aspiration. Progressively she became worse and she became hypoxic and hypercapnic and altered and she was very much tachypnea respiratory rate was in the 40s. She was given a trial of BiPAP which she feels and subsequently admitted recommendations to intubate patient and bring her to the intensive care unit. She became also septic and hypotensive during the process. For now, the patient is intubated on a mechanical ventilator. She is currently in the intensive care unit on propofol running at 50 mcg/kg per minute. She is also on assist control mode of mechanical ventilation at the rate of 24 with a tidal volume of 400 and FiO2 of 80% with a PEEP of 15. Blood gases from this morning shows a pH of 7.49 with a pCO2 of 45 and pO2 of 103. This was not an FiO2 of 100% and currently her FiO2 is down to 80%. Meanwhile I reviewed the series of chest x-ray that was done pre-and post intubation. The most recent chest x-ray shows multilobar pneumonia worsened the left perihilar left upper and left lower lobe. ET tube is around 3 cm above the earnestine and it's adequately positioned. The patient does not have any significant air leaks. Since the patient became hypotensive, she was given IV fluids and she received a total of 2 L normal saline bolus and currently her IV fluids running at the rate of 50 mL an hour. Pressors have also been added and the patient is currently on norepinephrine at 0.04 mcg/kg per minute. Her white cell count is at 15 with a hemoglobin of 11.3. BUN is at 13 with a creatinine of 1.1 and sodium is at 135. The patient was also given IV Zosyn covering for aspiration pneumonia. Note that her origin hospitalization was for a gram-negative UTI secondary to Enterobacter and Klebsiella and both of these microorganisms are sensitive to Zosyn. As such, the patient has been On single agent Zosyn. The patient is on Lovenox for DVT prophylaxis. The patient is also on NovoLog sliding scale coverage. Blood sugars are in the 200s range at this point in time. Patient was reevaluated on 02/17/22, patient remains in the ICU, intubated and mechanically ventilated. She is on assist control rate of 16 per volume 375 FiO2 40% PEEP of 15. However after evaluating the patient, I changed her ventilator settings to FiO2 of 45%, PEEP down to 12, respiration down to 12. And tidal volume was increased to 400. Patient had an ABG earlier today showed a pO2 of 114 pCO2 58 pH of 7.40 and looking at the bicarb on her initial presentation, it was relatively high, I believe the patient may have some underlying hypercapnia, and her pCO2 is likely in the high 50s normally. Patient is on propofol at 50 mcg/kg/m, she went off norepinephrine earlier this morning, she has IV fluid at 50 mL per hour in the form of 0.9 normal saline. She will be started on tube feeding today. Patient remains on Zosyn and vancomycin, she continues to have bilateral infiltrates consistent with aspiration pneumonia. WBC count today is 13.3 hemoglobin is 9.2. Basic metab olic profile is normal bicarb is 34.. Profile is normal. Blood sugar is 247. Urine cultures are positive for Enterobacter cloacae and Klebsiella pneumoniae and these cultures are from 02/14/22. 02/18/2022 Patient is seen in follow-up this morning continues to be on mechanical vent with an FiO2 of 45% and PEEP is 12. Patient continues on sedation of propofol and also continues with IV Zosyn and vancomycin for aspiration pneumonia. Chest xray shows bilateral patchy densities and left pleural effusion. Patient is off pressor support and some adjustments to the vent being made. Started enteral nutrition and blood sugars remain mildly elevated. Recommend to continue with gentle IV fluids and accuchecks and sliding scale achs. long acting as well. Will adjust accordingly. WBC trending down and patient is afebrile. 02/19/2022 Patient is seen this morning continues to be in the ICU on mechanical vent and FiO2 is 40% with a PEEP of 12. Patient continues on sedation and also maintained on 40 mg of IV Lasix daily along with IV Zosyn and will continue. Vancomycin discontinued. Blood sugars mildly elevated and will increase long- acting insulin and continue with sliding scale and Accu-Cheks before meals and at bedtime and as needed. Chest x-ray today shows unchanged cardiomediastinal silhouette with persistent bilateral pulmonary patchy opacification is slightly improved in the right upper lung zone an NG tube is noted. WBC is trending down at 10.0 hemoglobin is stable at 8.4. As mentioned previously blood sugars are elevated and will increase insulins. Patient is currently afebrile. Sputum cultures pending at this time and blood cultures remain negative. Urine culture showing Enterobacter Cloacae along with Klebsiella pneumonia. 02/20/2022 Patient is evaluated today during a sedation holiday and does not tolerate very well. Patient to continue on Propofol with ongoing assessment for weaning parameters. Patient is not on pressor support. Patient continues on vent with FI02 of 40%. Patient is also on IV antibiotics and sputum culture showing chapin albicans and will add diflucan. Recommend follow up on chest xray and repeat am labs ordered. Follow up on magnesium and replace per protocol. Will increase long acting insulin and recommend continued monitoring. Patient is afebrile. 02/21/2022 Patient is seen this morning in the ICU and continues to undergo sedation holidays and will likely need possible peg and trach placement. General surgery was consulted. Patient remains on an FI02 of 40% and peep is 8. Blood sugars remain elevated and have increased long acting up to 25 units and will continue sliding scale. Patient is afebrile. Sputum culture showing candid albicans and have added diflucan. Patient also remains on IV zosyn and will continue. Overall prognosis remains guarded. 02/22/22 Patient is seen today and continues in the ICU and off sedation and on CPAP mode. Patient is following simple commands and chest xray shows some improvement in aeration. ABG improved and pulmonary considering extubation as patient is tolerating well. Surgery following and was having plans of peg and trach placement today and placed on hold. Patient is NPO and will continue for now and follow up once mentation improves. Patient is afebrile and will continue with IV abx for aspiration pneumonia. Diflucan as well. Recommend follow up xray and labs in the am. 02/23/2022 Patient is currently in MICU. Intubated. Patient is able to open her eyes with verbal commands. Patient did tolerate extubation/on BiPAP about 5 hours yesterday. She became agitated and hypoxic and tachypneic. Patient placed back on assist control. Today chest x-ray showed correlate for congestive heart. Pneumonia not excluded. Lasix dose increased to every 12 hours. Laboratory data showed WBC 7.2 hemoglobin 9.5 and platelets 263 Sodium 140 potassium 3.3 chloride 100 bicarb is 38 BUN 26 and creatinine 0.96 and blood sugar 195. Patient is being current on antibiotics in the form of Zosyn. 02/24/2022 Patient is currently on mechanical ventilator. Sedated with propofol. Assist- control 16 with tidal volume of 400, FiO2 45 % and PEEP of 8. Hemodynamically stable. On antibiotics in the form of Zosyn also on Diflucan. Chest x-ray showed similar multifocal airspace opacities. Stable and supportive. Laboratory data showed WBC 5.6 hemoglobin 9.6 and platelets 260 Sodium 140 potassium 3.8 chloride 101 bicarb is 37 BUN 33 and creatinine 0.98 and blood sugars 299. Calcium 8.3. Patient is on Levemir 35 units at bedtime and with insulin sliding scale. General surgery is on board for possible trach and PEG tube placement however family is undecided at this time. Review of systems: Unable to obtain Current medications reviewed. Objective - Vital Signs Vital signs: Vital Signs Temp 99.7 F H 02/24/22 16:00 Pulse 81 02/24/22 18:00 Resp 13 02/24/22 18:00 BP 96/46 02/24/22 18:00 Pulse Ox 96 02/24/22 18:00 FiO2 45 02/24/22 18:00 Intake & Output 02/24/22 02/24/22 02/25/22 06:59 18:59 06:59 Intake Total 108.713 9313.297 12.665 Output Total 1085 1343 Balance -499.560 -283.703 12.665 Weight 110.8 kg Intake: IV 376 276 Piperacillin-Tazobactam 3 100 .375 gm In Sodium Chloride 0.9% 100 ml @ 25 mls/hr IVPB Q8HR [facility] Rx# :[id number] Sodium Chloride 0.9% 1, 240 240 000 ml @ 10 mls/hr IV . Q24H [facility] Rx#:[id number] pressure bag 36 36 Intake, IV Titration 157.440 153.297 12.665 Amount Morphine Sulfate (100 mg/ 12.665 2 ml) 100 mg In Sodium Chloride 0.9% 100 ml @ 1 MG/HR 1.02 mls/hr IV . Q24H [facility] Rx#:[id number] propofoL 1,000 mg In 157.440 153.297 Empty Bag 1 bag @ 5 MCG/ KG/MIN 3.27 mls/hr IV . Q24H [facility] Rx#:[id number] Tube Feeding 52 520 Other 110 Output: Urine 1085 1343 Other: Voiding Method Indwelling Catheter Indwelling Catheter ABP, PAP, CO, CI - Last Documented Arterial Blood Pressure 109/53 - Exam Physical exam: GENERAL EXAM: a 66-year-old female, morbidly obese, off sedation and on CPAP mode and attempting weaning trials and currently considering extubation with a vent setting of 40% FI02 and peep is 5 HEENT: Normocephalic. PERRLA, Endotracheal tube and orogastric tube are intact. nares are patent NECK: No masses, no JVD. Short obese neck LUNGS: Symmetrical chest expansion, diminished breath sounds bilaterally with s ome crackles at the bases. No rhonchi no wheezes. CARDIO: S1 and S2 muffled with no audible murmur, regular rhythm. ABDOMEN: soft, obese, non-distended, normal bowel sounds, no guarding or rigidity. SKIN: No rashes Neurological: Cannot assess completely, patient is calm and responding to simple commands EXTREMITIES: No clubbing edema or cyanosis. generalized edema noted throughout - Labs CBC & Chem 7: 02/24/22 04:20 02/24/22 04:20 Labs: Abnormal Lab Results - Last 24 Hours (Table) 02/23/22 02/24/22 02/24/22 Range/Units 22:57 04:20 04:20 RBC 3.31 L (3.80-5.40) m/uL Hgb 9.6 L (11.4-16.0) gm/dL Hct 31.6 L (34.0-46.0) % MCHC 30.4 L (31.0-37.0) g/dL ABG pH (7.35-7.45) ABG pCO2 (35-45) mmHg ABG HCO3 (21-25) mmol/L ABG Total CO2 (19-24) mmol/L ABG O2 Saturation (94-97) % Carbon Dioxide 37 H (22-30) mmol/L BUN 33 H (7-17) mg/dL Glucose 299 H (74-99) mg/dL POC Glucose (mg/dL) 275 H (70-110) mg/dL Calcium 8.3 L (8.4-10.2) mg/dL 02/24/22 02/24/22 02/24/22 Range/Units 05:19 05:23 12:13 RBC (3.80-5.40) m/uL Hgb (11.4-16.0) gm/dL Hct (34.0-46.0) % MCHC (31.0-37.0) g/dL ABG pH 7.50 H (7.35-7.45) ABG pCO2 48 H (35-45) mmHg ABG HCO3 37 H (21-25) mmol/L ABG Total CO2 39 H (19-24) mmol/L ABG O2 Saturation 98.4 H (94-97) % Carbon Dioxide (22-30) mmol/L BUN (7-17) mg/dL Glucose (74-99) mg/dL POC Glucose (mg/dL) 300 H 267 H (70-110) mg/dL Calcium (8.4-10.2) mg/dL Assessment and Plan Assessment: Assessment: Acute hypoxic respiratory failure secondary to aspiration pneumonia requiring mechanical ventilation, Patient was extubated on 02/22/2022 for about 5 hours and started back on assist control. Acute urinary tract infection secondary Enterobacter cloacae and Klebsiella pneumoniae Acute toxic metabolic encephalopathy secondary to sepsis and aspiration pneumonia Hypotension secondary to sepsis, with possible septic shock as patient was initially on pressor support, off pressors Chronic diastolic congestive heart failure History of Olivopontocerebellar demyelination Possible obesity hypoventilation syndrome diabetes mellitus, type 2 uncontrolled with hyperglycemia. obstructive sleep apnea syndrome, on CPAP. Possible chronic hypercapnic respiratory failure secondary to obstructive sleep apnea and obesity/hypoventilation syndrome History of sarcoidosis. GI prophylaxis DVT prophylaxis Full code Plan: Recommend to continue with close monitoring in the ICU with sedation holidays and weaning parameters being assessed. Patient remains on mechanical vent at 40% FiO2 and peep is 5. Currently on assist control . consult to surgery for peg and trach placement currently on hold Until further family discussion and final decision.. Recommend to continue with accuchecks achs and have increased long acting insulin to 25 units at hs for the elevated blood sugars Continue antibiotics in the form of Zosyn and diflucan REcommend to continue with IV lasix BID Recommend follow up chest xray and labs in the am, replace electric per protocol Overall prognosis is extremely guarded at this time. Time with Patient: Greater than 30
[2022-02-24 23:20] VITALS: BP 113/75; PULSE 117; RESP 29
--- NOTE | 2022-02-25 15:10 | P.DS ---
Providers Date of admission: 02/14/22 16:00 Expected date of discharge: 02/25/22 Attending physician: Eder Watts Consults: 02/14/22 16:02 Consult Physician Urgent Consulting Provider: [facility] Consult Reason/Comments: aechf Do you want consulting provider notified?: Yes 02/15/22 07:33 Consult Physician Urgent Consulting Provider: Nolan Iryb Consult Reason/Comments: COPD, BIPAP, CHF Do you want consulting provider notified?: Yes 02/15/22 11:23 Consult Physician Routine Consulting Provider: Epifanio Mcginnis Consult Reason/Comments: Anisocoria Do you want consulting provider notified?: Yes 02/21/22 10:33 Consult Physician Routine Consulting Provider: Tremaine Rebolledo Consult Reason/Comments: trach and peg Do you want consulting provider notified?: Yes Primary care physician: Zita Barboza Hospital Course: Preliminary cause of Aspiration pneumonia Final diagnosis Acute hypoxic respiratory failure secondary to aspiration pneumonia requiring mechanical ventilation, Patient was extubated on 02/22/2022 for about 5 hours and requiring mechanical ventilation again Acute urinary tract infection secondary Enterobacter cloacae and Klebsiella pneumoniae Acute toxic metabolic encephalopathy secondary to sepsis and aspiration pneumonia Hypotension secondary to sepsis, with possible septic shock as patient was initially on pressor support, off pressors Chronic diastolic congestive heart failure History of Olivopontocerebellar demyelination Possible obesity hypoventilation syndrome diabetes mellitus, type 2 uncontrolled with hyperglycemia. obstructive sleep apnea syndrome, on CPAP. Possible chronic hypercapnic respiratory failure secondary to obstructive sleep apnea and obesity/hypoventilation syndrome History of sarcoidosis. GI prophylaxis DVT prophylaxis No code Discharge disposition Patient has . According to nursing documentation time of was 203102/24/2022. Please refer to previous documentation and pulmonary skiver counter for further HPI. Hospital course This is a 66-year-old female who was recently admitted with increased altered mental status and increasing shortness of breath and placed on BiPAP ultimately requiring intubation. Patient was extubated although after 5 hours requiring intubation as patient became more hypoxic. Tracheostomy and PEG tube placement was considered and family made the decision and was agreeable to comfort care measures. Comfort care orders were placed and patient at 2031. Again please refer to previous documentation for further HPI. The impression and plan of care has been dictated as a scribe by Ayleen Cheng, Nurse Practitioner as directed. Dr. Jesus MD I have performed a history and examination and MDM of this patient, discussed the same with the dictator, and agree with the dictator's assessment and plan as written ,documented as a scribe. Based on total visit time, I have performed more than 50% of the visit. Patient Condition at Discharge: Poor Plan - Discharge Summary Discharge Rx Participant: Yes New Discharge Prescriptions: No Action Atorvastatin Calcium [Lipitor] 20 mg PO DAILY [place]-3 Fatty Acids/Fish Oil [Fish Oil 1,000 mg Softgel] 1 cap PO DAILY Aspirin 81 mg PO DAILY Budesonide [Pulmicort] 0.5 mg INHALATION RT-BID Oxybutynin Xl [Ditropan XL] 5 mg PO DAILY Albuterol Nebulized [Ventolin Nebulized] 2.5 mg INHALATION RT-QID metFORMIN HCL [Glucophage] 1,000 mg PO BID Multivitamins, Thera [Multivitamin (formulary)] 1 tab PO DAILY Psyllium Husk (with Sugar) [Metamucil Powder] 1 tbsp PO DAILY Lactulose [Cephulac] 10 gm PO BID PRN PRN Reason: Constipation Imipramine [Tofranil] 25 mg PO BID #0 PARoxetine [Paxil] 20 mg PO DAILY Insulin Aspart [NovoLOG Flexpen] See Protocol SQ AC-TID Insulin Glargine,Hum.rec.anlog [Lantus Solostar Pen] 50 unit SQ HS Magnesium Citrate 148 ml PO DAILY PRN PRN Reason: Constipation L.acidoph,Paracasei, B.lactis [Probiotic] 1 cap PO DAILY Cholecalciferol [Vitamin D3 (25 Mcg = 1000 Iu)] 25 mcg PO DAILY Furosemide [Lasix] 20 mg PO DAILY #15 tab Discharge Medication List Aspirin 81 mg PO DAILY 11/10/15 [History] Atorvastatin Calcium [Lipitor] 20 mg PO DAILY 11/10/15 [History] Budesonide [Pulmicort] 0.5 mg INHALATION RT-BID 11/10/15 [History] [place]-3 Fatty Acids/Fish Oil [Fish Oil 1,000 mg Softgel] 1 cap PO DAILY 11/10/15 [History] Albuterol Nebulized [Ventolin Nebulized] 2.5 mg INHALATION RT-QID 11/11/15 [History] Oxybutynin Xl [Ditropan XL] 5 mg PO DAILY 11/11/15 [History] metFORMIN HCL [Glucophage] 1,000 mg PO BID 10/08/19 [History] Lactulose [Cephulac] 10 gm PO BID PRN 07/20/20 [History] Multivitamins, Thera [Multivitamin (formulary)] 1 tab PO DAILY 07/20/20 [History] Psyllium Husk (with Sugar) [Metamucil Powder] 1 tbsp PO DAILY 07/20/20 [History] Imipramine [Tofranil] 25 mg PO BID #0 07/22/20 [Rx] Magnesium Citrate 148 ml PO DAILY PRN 04/25/21 [History] PARoxetine [Paxil] 20 mg PO DAILY 04/25/21 [History] Cholecalciferol [Vitamin D3 (25 Mcg = 1000 Iu)] 25 mcg PO DAILY 12/24/21 [History] Insulin Aspart [NovoLOG Flexpen] See Protocol SQ AC-TID 12/24/21 [History] Insulin Glargine,Hum.rec.anlog [Lantus Solostar Pen] 50 unit SQ HS 12/24/21 [History] L.acidoph,Paracasei, B.lactis [Probiotic] 1 cap PO DAILY 12/24/21 [History] Furosemide [Lasix] 20 mg PO DAILY #15 tab 12/27/21 [Rx] Follow up Appointment(s)/Referral(s): Zita Barboza MD [Primary Care Provider] - 1-2 days Discharge/Stand Alone Forms: Who Do I Call?, Help In [facility] Home, Personal Senior Vice President & General Counsel Discharge Disposition: - Preliminary Cause of Preliminary Cause of : Aspiration pneumonia
== END 2022-02-24 20:32 | disposition expired | DRG 207 ==
LOC: EC 13:09 → 3SCARD 16:00 → 2SICU 02-16 21:48
PROVIDERS: ADMIT Internal Medicine; ATTEND Internal Medicine
PROC: 5A09457 Assistance with Respiratory Ventilation, 24-96 Consecutive Hours, Continuous Positive Airway Pressure (ICD-10-PCS; 2022-02-14)
PROC: 5A1955Z Respiratory Ventilation, Greater than 96 Consecutive Hours (ICD-10-PCS; principal; 2022-02-16)
PROC: 0D9670Z Drainage of Stomach with Drainage Device, Via Natural or Artificial Opening (ICD-10-PCS; 2022-02-16)
PROC: 0BH17EZ Insertion of Endotracheal Airway into Trachea, Via Natural or Artificial Opening (ICD-10-PCS; 2022-02-16)
PROC: 3E033XZ Introduction of Vasopressor into Peripheral Vein, Percutaneous Approach (ICD-10-PCS; 2022-02-16)
PROC: 06HM33Z Insertion of Infusion Device into Right Femoral Vein, Percutaneous Approach (ICD-10-PCS; 2022-02-17)
PROC: 3E0G76Z Introduction of Nutritional Substance into Upper GI, Via Natural or Artificial Opening (ICD-10-PCS; 2022-02-18)
PROC: 5A1945Z Respiratory Ventilation, 24-96 Consecutive Hours (ICD-10-PCS; 2022-02-22)
PROC: 0D9670Z Drainage of Stomach with Drainage Device, Via Natural or Artificial Opening (ICD-10-PCS; 2022-02-22)
PROC: 0BH17EZ Insertion of Endotracheal Airway into Trachea, Via Natural or Artificial Opening (ICD-10-PCS; 2022-02-22)
DX: J96.21 Acute and chronic respiratory failure with hypoxia (principal); G93.41 Metabolic encephalopathy; J69.0 Pneumonitis due to inhalation of food and vomit; R65.21 Severe sepsis with septic shock; A41.9 Sepsis, unspecified organism; E43 Unspecified severe protein-calorie malnutrition; I50.33 Acute on chronic diastolic (congestive) heart failure; G92.8 Other toxic encephalopathy; T83.511A Infection and inflammatory reaction due to indwelling urethral catheter, initial encounter; I67.89 Other cerebrovascular disease; E66.2 Morbid (severe) obesity with alveolar hypoventilation; Q23.1 Congenital insufficiency of aortic valve; N13.6 Pyonephrosis; Z68.42 Body mass index [BMI] 45.0-49.9, adult; I24.8 Other forms of acute ischemic heart disease; G23.8 Other specified degenerative diseases of basal ganglia; J96.12 Chronic respiratory failure with hypercapnia; E11.41 Type 2 diabetes mellitus with diabetic mononeuropathy; Z51.5 Encounter for palliative care; Z66 Do not resuscitate; Z43.3 Encounter for attention to colostomy; I11.0 Hypertensive heart disease with heart failure; F03.90 Unspecified dementia, unspecified severity, without behavioral disturbance, psychotic disturbance, mood disturbance, and anxiety; D86.0 Sarcoidosis of lung; E11.65 Type 2 diabetes mellitus with hyperglycemia; J44.9 Chronic obstructive pulmonary disease, unspecified; Z79.4 Long term (current) use of insulin; B96.89 Other specified bacterial agents as the cause of diseases classified elsewhere; B96.1 Klebsiella pneumoniae [K. pneumoniae] as the cause of diseases classified elsewhere; E78.5 Hyperlipidemia, unspecified; K59.09 Other constipation; N31.9 Neuromuscular dysfunction of bladder, unspecified; I65.22 Occlusion and stenosis of left carotid artery; R26.9 Unspecified abnormalities of gait and mobility; H57.02 Anisocoria; N39.498 Other specified urinary incontinence; H10.9 Unspecified conjunctivitis; F32.A Depression, unspecified; Z99.81 Dependence on supplemental oxygen; Z79.82 Long term (current) use of aspirin; Z79.51 Long term (current) use of inhaled steroids; Z79.84 Long term (current) use of oral hypoglycemic drugs; Z79.899 Other long term (current) drug therapy; Z99.3 Dependence on wheelchair; Z86.14 Personal history of Methicillin resistant Staphylococcus aureus infection; Z86.19 Personal history of other infectious and parasitic diseases; Z90.49 Acquired absence of other specified parts of digestive tract; Z87.19 Personal history of other diseases of the digestive system; Z98.51 Tubal ligation status; Z87.39 Personal history of other diseases of the musculoskeletal system and connective tissue; Z87.440 Personal history of urinary (tract) infections; Z98.890 Other specified postprocedural states; Z71.3 Dietary counseling and surveillance; Y84.6 Urinary catheterization as the cause of abnormal reaction of the patient, or of later complication, without mention of misadventure at the time of the procedure; Z80.0 Family history of malignant neoplasm of digestive organs; Z83.3 Family history of diabetes mellitus; Z82.49 Family history of ischemic heart disease and other diseases of the circulatory system; Z84.1 Family history of disorders of kidney and ureter
CPT/HCPCS: 36415; 36600; 70450; 70544; 70551; 71045; 80048; 80053; 81001; 82140; 82607; 82746; 82803; 82805; 83605; 83735; 83880; 84132; 84443; 84484; 85025; 85027; 85610; 85730; 87040; 87070; 87077; 87086; 87186; 87205; 93005; 93306; 93880; 94002; 94003; 94640; 94660; 94760; 96374; 99285